=== PATIENT | female | born 1945 | race Caucasian/White ===

== ENCOUNTER → 2017-10-13 11:55 | Outpatient (REF) | payer MEDICARE, MEDICAID, SELFPAY ==
[2017-10-13 12:51] LABS: Bilirubin Negative (Negative); Blood Negative (Negative); Clarity Clear; Glucose 500 mg/dL (Negative); Ketones Negative (Negative); Leukocyte Esterase Negative (Negative); Nitrite Negative (Negative); Urobilinogen 0.2 EU/dL (Up TO 0.2); pH 5.5 (5-8)
== END ==
LOC: NCHCN 11:55
PROVIDERS: PCP Family Medicine; Visit Provider Family Medicine
DX: R35.0 Frequency of micturition (principal)
CPT/HCPCS: 81003

== ENCOUNTER 2017-11-04 11:03 | Emergency (ER) | payer MEDICARE, MEDICAID, SELFPAY ==
[2017-11-04] VITALS (27 sets, daily range): BP systolic 105–138; BP diastolic 60–85; PULSE 80–92; RESP 14–29; TEMP 36.6–36.7; O2SAT 89–96
--- NOTE | 2017-11-04 11:16 | ED.GENADUL_ITS ---
Disposition Clinical Impression: Left lower lobe pneumonia Disposition: HOME Condition: Good Instructions: Pneumonia (ED) Additional Instructions: We will ask our care management team to make you a follow-up appointment in clinic for recheck as well as to ask home health to check in with you. Return for worsening discomfort, development of fever, vomiting, or any other acute concerns per Continue your regular medications, except we will need to hold your Metformin for 48 hours. Prescriptions: Cefpodoxime [Vantin] 200 mg PO BID #20 tab Medical Decision Making - Lab Data Laboratory Results - last 24 hr 11/04/17 11/04/17 11:30 11:30 WBC 8.73 RBC 4.60 Hgb 13.9 Hct 40.8 MCV 88.7 MCH 30.2 MCHC 34.1 RDW 12.0 Plt Count 229 MPV 10.5 Immature Gran % 0.2 Neutrophils % 53.7 Lymphocytes % 33.7 Monocytes % 9.2 Eosinophils % 2.9 Basophils % 0.3 Absolute Neutrophils 4.69 Absolute Lymphocytes 2.94 Absolute Monocytes 0.80 H Absolute Eosinophils 0.25 Absolute Basophils 0.03 Sodium 135 L Potassium 3.5 Chloride 99 Carbon Dioxide 26.9 Anion Gap 9.1 BUN 8 Creatinine 0.89 Estimated GFR/1.73 m2 >= 60.00 Glucose 269 H Calcium 8.8 Magnesium 1.6 L Total Bilirubin 0.5 AST 15 ALT 19 Alkaline Phosphatase 122 H Troponin I < 0.02 Total Protein 7.9 Albumin 2.8 L Lipase 121 Results reviewed for labs ordered during visit: Yes - EKG Data -: EKG Interpreted by Ia EKG shows normal: sinus rhythm 11/04/17 11:49 Normal sinus rhythm, rate of 90, QRS is narrow, no ST segment elevation. - Radiology Data Radiology results: report reviewed, image reviewed - Medical Decision Making 72-year-old female presents for 2 complaints: First is that she essentially swish and spit some kerosene 5 days antecedent. Now here with 2 days of abdominal pain. She is afebrile, with normal blood pressure, with minimal tenderness in the right abdomen on exam. History is notable for neuroleptic induced tardive dyskinesia, hypertension, diabetes, obstructive sleep apnea, GERD, depression,/anxiety, headaches, questionable developmental delay. IV placed, patient given fluids and antiemetic along with small aliquot of analgesic. Referred for laboratory testing and imaging. CBC essentially unremarkable, chemistries with chronic mild hyponatremia, today 135, glucose 269, magnesium 1.6, troponin negative, lipase 121. Urine with trace blood and glucosuria. These reveal left lower lobe consolidation. May be due to slight inhalation of the kerosene 5 days ago, or other infectious process. Will treat for community- acquired pneumonia as this is an atypical area for true aspiration event. Patient given Rocephin in the emergency department, will place on a course of cefpodoxime. We will ask care management to assist in home health visit to ensure the patient success during outpatient treatment. History of Present Illness - General Chief complaint: GenMedical Stated complaint: RAZIA Time Seen by Provider: 11/04/17 11:13 Source: patient, EMS Mode of arrival: EMS Limitations: no limitations - History of Present Illness Initial comments: 72-year-old female presents from home after 911 call to EMS. She states that she drank kerosene on Wednesday, 5 days prior. She called EMS today due to the gradual onset over a day or so's time of right sided constant abdominal pain that is nonradiating. She says it hurts, it is worse with movement, associated with nausea but no emesis. She has not had a fever. States that she has had 2 days of diarrhea. She states that she has not had a cough, that she accidentally drink off-road kerosene and quickly spit it out. She has not had shortness of breath or chest pain. - Related Data Simvastatin [Zocor] 20 mg PO HS tab-cap 11/28/13 Blood Sugar Diagnostic [Freestyle Test Strips] 1 each MC DAILY strip 06/04/16 Dexlansoprazole [Dexilant] 30 mg PO BID tab-cap 05/06/17 Escitalopram Oxalate 30 mg PO DAILY tab-cap 05/06/17 Insulin Glargine,Hum.rec.anlog [Basaglar Kwikpen U-100] 32 unit SQ HS 05/06/17 Aspirin [Aspir 81] 81 mg PO DAILY 06/30/17 Propranolol HCl [Propranolol HCl ER] 60 mg PO DAILY 06/30/17 Albuterol [Ventolin Hfa] 2 puff IH PRN PRN 11/04/17 Cefpodoxime [Vantin] 200 mg PO BID #20 tab 11/04/17 ClonazePAM [KlonoPIN] 0.5 mg PO BID 11/04/17 Levothyroxine Sodium 112 mcg PO DAILY 11/04/17 Metformin HCl [Metformin HCl ER] 1,000 mg PO DAILY 11/04/17 Allergies Allergy/AdvReac Type Severity Reaction Status Date / Time codeine Allergy Severe Unverified 10/05/17 10:15 Penicillins Allergy Severe Unverified 10/05/17 10:15 bupropion Allergy Intermediate Unverified 10/05/17 10:15 tetrabenazine Allergy Intermediate Skin Rash Unverified 10/05/17 10:15 lisinopril Allergy Mild Unverified 10/05/17 10:15 oxybutynin chloride Allergy Unverified 10/05/17 10:15 [From Ditropan] Review of Systems Other: 8 systems reviewed, otherwise negative Past Medical History - Past Medical History Medical history: diabetes, GERD, hyperlipidemia, hypertension Tardive dyskinesia, migraines, hypothyroidism Surgical history: cholecystectomy, herniorraphy, hysterectomy - Social History Alcohol use: none Drug use: none General Exam - General Limitations: no limitations General appearance: alert, in no apparent distress - Head Head exam: Present: atraumatic, normocephalic - Eye Eye exam: Present: PERRL, EOMI - ENT ENT exam: Present: normal exam, normal orophraynx, other (Edentulous) - Neck Neck exam: Present: normal inspection - Respiratory Respiratory exam: Present: normal lung sounds bilaterally. Absent: respiratory distress, chest wall tenderness - Cardiovascular Cardiovascular Exam: Present: regular rate, normal rhythm - GI/Abdominal GI/Abdominal exam: Present: soft. Absent: distended, tenderness - Extremities Exam Extremities exam: Present: normal inspection - Neurological Exam Neurological exam: Present: alert, oriented X3 - Psychiatric Psychiatric exam: Present: normal affect, normal mood - Skin Skin exam: Present: warm, dry, intact
[2017-11-04 11:42] LABS: Abs Immature Grans 0.02 k/cumm (0.0-0.09); Absolute Basophil Count 0.03 k/cumm (0.0-0.2); Absolute Eosinophil Count 0.25 k/cumm (0.0-0.7); Absolute Lymphocyte Count 2.94 k/cumm (1.2-3.4); Absolute Neutrophil Count 4.69 k/cumm (1.2-6.7); Basophils % 0.3; Eosinophils % 2.9; HCT 40.8 % (36.0-46.0); HGB 13.9 g/dL (12.0-15.5); Immature Grans % 0.2; Lymphocytes % 33.7; Mean Corp. HGB Concentration 34.1 g/dL (32.0-36.0); Mean Corpuscular Hemoglobin 30.2 pg (27.0-33.0); Mean Corpuscular Volume 88.7 fL (80-95); Mean Platelet Volume 10.5 fL (8.0-11.0); Monocytes % 9.2; Neutrophils % 53.7; Platelet Count 229 x1000/uL (130-400); White Blood Cell Count 8.73 k/cumm (4.4-10.8)
[2017-11-04 11:56] LABS: ALT 19 U/L (12-78); AST 15 U/L (15-37); Albumin 2.8 g/dL (3.4-5.0); Alkaline Phosphatase 122 U/L (46-116); Anion Gap 9.1 mmol/L (3-11); BUN 8 mg/dL (7-18); Bilirubin, Total 0.5 mg/dL (0.2-1.0); CO2 26.9 mmol/L (21.0-32.0); CREATININE 0.89 mg/dL (0.55-1.02); Calcium 8.8 mg/dL (8.5-10.1); Chloride 99 mmol/L (98-107); Glucose 269 mg/dL (70-100); Lipase 121 U/L (73-393); Magnesium 1.6 mg/dL (1.8-2.4); Potassium 3.5 mmol/L (3.5-5.1); Sodium 135 mmol/L (136-145); Total Protein 7.9 g/dL (6.4-8.2)
[2017-11-04 11:58] LABS: Troponin I < 0.02 ng/mL (0.00-0.06)
[2017-11-04 12:08] LABS: Bilirubin Negative (Negative); Blood Trace-intact (Negative); Clarity Clear; Glucose 500 mg/dL (Negative); Ketones Negative (Negative); Leukocyte Esterase Negative (Negative); Nitrite Negative (Negative); Urobilinogen 0.2 EU/dL (Up TO 0.2)
[2017-11-04] MEDS: Normal Saline 1,000 ML 150 ML IV (12:08)
[2017-11-04] MEDS: Ondansetron 4 MG/2 ML VIAL IVP (12:08)
[2017-11-04] MEDS: Ketorolac 30 MG/ML VIAL 15 MG IVP (12:09)
--- NOTE | 2017-11-04 12:42 | DI.RPTCT_ITS ---
SYMPTOM/DIAGNOSIS: ABD PAIN, PARTICULARLY RLQ, ACCIDENTALLY SWALLOWED KEROSENE ABDOMEN AND PELVIC CT: CT examination of the abdomen and pelvis was performed with a bolus infusion of 100 cc's of Omnipaque 350. Images obtained through the lung bases show an area of apparent dense consolidation in the left lung base. The patient reportedly has a history of recent suspected kerosene aspiration and the findings are consistent with chemical and/or infectious pneumonitis of the left lower lobe. Note is made of hepatic steatosis. There has been a previous cholecystectomy. Spleen is unremarkable in appearance except for a couple of very tiny calcifications. Pancreas appears normal. No biliary dilatation is seen. Abdominal aorta is of normal diameter and no major vascular abnormality is seen. Adrenals and kidneys are normal in appearance. No significant abdominal wall hernia is seen. No abdominal or pelvic adenopathy. Appendix is normal. No evidence of diverticulitis or bowel obstruction. Uterus is atrophic or absent. CONCLUSION: 1. Findings consistent with left lower lobe pneumonitis. Appropriate follow up radiographs requested. 2. Hepatic steatosis. 3. Normal appearance of the appendix, no other specific abnormality is seen. AP AND LATERAL CHEST: The heart is not enlarged. As noted on today's abdomen and pelvic CT, there is left basilar consolidation. The patient reportedly has a history of suspected kerosene aspiration. Lungs otherwise appear clear. No pleural effusion is seen. No pneumothorax. CONCLUSION: Findings consistent with left lower lobe consolidation. Appropriate follow up studies requested.
[2017-11-04] MEDS: Omnipaque 350 MG/ML 100 ML BTL IJ (12:46)
[2017-11-04 12:49] LABS: Bacteria Negative HPF (Negative); C & S Indicated? No; Casts Negative LPF (Negative); Crystals Negative HPF (Negative); Epithelial Cells Negative HPF (Negative); Mucus Negative (Negative); RBC 0-2 (0-2); WBC Negative HPF (0-5)
--- NOTE | 2017-11-04 14:56 | PDOC.ERCMPRO ---
Care Management Progress Note 11/04-Philomena needs transportation home. Called [facility], spoke with Lucina. Lucina will send catering driver to pick pulling machine operator Philomena and return her home to [facility]. Air Quality Chemist will pick pulling machine operator Philomena at the emergency department entrance.
--- NOTE | 2017-11-04 14:57 | CMPROGNOTE_ITS ---
Care Management Progress Note 11/04-Philomena needs transportation home. Called [facility], spoke with Lucina. Lucina will send local bulk driver to pharmacy picking tech Philomena and return her home to [facility]. [employer] will pharmacy picking tech Philomena at the emergency department entrance.
--- NOTE | 2017-11-05 08:36 | PDOC.ERCMPRO ---
Care Management Progress Note 11/05-Dr. Balion requested PCP (Maria M) f/u within a week for pneumonia and to assess for home health services. Referral faxed to [facility].
== END 2017-11-04 15:05 | disposition home or self-care (01) ==
PROVIDERS: Emergency Provider Emergency Medicine; PCP Family Medicine
DX: J18.9 Pneumonia, unspecified organism (principal); T52.0X1A Toxic effect of petroleum products, accidental (unintentional), initial encounter; R10.11 Right upper quadrant pain; R11.0 Nausea; E11.9 Type 2 diabetes mellitus without complications; Z79.4 Long term (current) use of insulin; I10 Essential (primary) hypertension
CPT/HCPCS: 71046; 74177; 93005; 96361; 96365; 96375; 99285 ×2; J0696; J1885; J2405; 36415; 80053; 83690; 81003; 81015; 83735; 84484; 85025; 93010; J3490

== ENCOUNTER → 2017-12-13 14:39 | Outpatient (BNVA) | payer MEDICARE, MEDICAID, SELFPAY | PROVIDERS: PCP Family Medicine; Visit Provider Psychiatry & Neurology Neurology | DX: G24.01 Drug induced subacute dyskinesia (principal); G25.71 Drug induced akathisia; I10 Essential (primary) hypertension; E11.9 Type 2 diabetes mellitus without complications; Z79.4 Long term (current) use of insulin | CPT/HCPCS: 99213 ==

== ENCOUNTER 2018-01-31 16:31 | Outpatient (REF) | payer MEDICARE, MEDICAID, SELFPAY ==
[2018-01-31 19:59] LABS: COMMENT (LAB VIEW ONLY) 50.01 mg/dL; Microalb ug/mg Crea 5.4 ug/mg Cr
== END 2018-01-31 16:51 ==
LOC: NCHCN 16:31
PROVIDERS: PCP Family Medicine; Visit Provider Family Medicine
DX: E11.9 Type 2 diabetes mellitus without complications (principal)
CPT/HCPCS: 82043; 82570

== ENCOUNTER 2018-02-02 14:40 | Emergency (ER) | payer MEDICARE, MEDICAID, SELFPAY ==
[2018-02-02 14:57] VITALS: BP 121/63; PULSE 72; RESP 16; TEMP 36; O2SAT 95
--- NOTE | 2018-02-02 15:12 | DI.RAD_ITS ---
SYMPTOMS/DIAGNOSIS: WEAKNESS, ? PNEUMONIA PA AND LATERAL CHEST: When compared with the previous examination, there has been no significant interval change.
--- NOTE | 2018-02-02 15:15 | ED.GENADUL_ITS ---
Discharge Plan Disposition Patient Disposition: HOME Condition: Stable Discharge Details Chief Complaint: GenMedical Clinical Impression: Fatigue, Diarrhea Primary Care Provider: Leti Franz ED Provider: Hawa Bull Home Meds and New Rx's Prescriptions: Continue clonazepam 0.5 mg tablet 1.5 mg PO HS Qty: 90 RF: 2 simvastatin [Zocor] 10 MG tablet 20 mg PO HS RF: 0 blood sugar diagnostic [FreeStyle Test] 1 EACH strip 1 ea Miscellaneous DAILY RF: 0 escitalopram oxalate 20 MG tablet 30 mg PO DAILY RF: 0 dexlansoprazole [Dexilant] 30 MG capsule,biphase delayed releas 30 mg PO BID RF: 0 insulin glargine [Basaglar KwikPen U-100 Insulin] 100 unit/mL (3 mL) insulin pen 45 unit subcut DAILY RF: 0 albuterol sulfate [Ventolin HFA] 200 PUFF HFA aerosol inhaler 2 puff Inhalation PRN PRNRF: 0 levothyroxine 112 MCG tablet 112 mcg PO DAILY RF: 0 metformin 500 MG tablet extended release 24hr 1,000 mg PO DAILY RF: 0 propranolol 60 MG capsule,extended release 24 hr 60 mg PO DAILY RF: 0 aspirin [Aspir-81] 81 MG tablet,delayed release (DR/EC) 81 mg PO DAILY RF: 0 Discharge Instructions Instructions: Acute Diarrhea (ED), Fatigue (ED) Additional Instructions: Take your regular medications as directed. Follow-up with your primary care doctor in 1 week for re-evaluation. Return immediately to the emergency department any worsening or new concerning symptoms. Discharge Data Discharge Date/Time-TO BE ENTERED AT DEPARTURE: 02/02/18 19:39 Discharge Physician: Hawa Bull Medical Decision Making 72-year-old female with a history of developmental delay, diabetes, hypertension , high cholesterol who presents with fatigue and acute worsening of chronic tremors for the past week. Also admits to urinary frequency, urinary incontinence and diarrhea with recent sick contacts. Vitals within normal limits. Afebrile. Patient appears nontoxic and in no acute distress. Differential diagnosis includes infectious process such as pneumonia, UTI, ACS, electrolyte abnormality, anemia, dehydration. Will place an IV, bolus IV fluids , labs, urinalysis, EKG and chest x-ray. EKG notes a rate of 72, sinus, no acute ST elevation or depression. QTc 438. QRS 100. 1840 --labs reviewed and are unremarkable. CT head and chest x-ray negative for acute findings. Patient states she feels much better. Patient states she is hungry and is requesting food. Okay to discharge back to [place]. Instructed to follow-up with a primary care doctor in 1 week and return here if worse. HPI General Mode of arrival: ambulatory . Date/Time Provider Initiated Documentation: 02/02/18 15:00 . Limitations to Documentation: no limitations . Information obtained by: patient . HPI Narrative: Patient is a 72-year-old female with a history of diabetes, hypertension, high cholesterol, depression and anxiety who presents for fatigue for the past week. She also admits to intermittent shaking. She states she has a history of tremors but states this is been worse than usual. She denies known fever. She states she has been eating slightly less than usual due to decreased appetite. She does admit to occasional diarrhea for the past 2 days which is been watery and brown but no bleeding. She also is complaining of urinary frequency and incontinence which essentially is due to not being able to make it to the bathroom in time. She denies recent antibiotics, recent hospital admission. She has a history of sick contacts with cold symptoms. Patient resides at [place] and states she got a taxi here. Past medical history: Neuroleptic induced tardive dyskinesia, migraine, osteoarthritis, GERD, diabetes, hyperlipidemia, hypertension, schizophrenia, depression, anxiety Surgical history: Cholecystectomy, tubal ligation, hernia, cataract surgery, hysterectomy, left wrist surgery Social history: Denies tobacco Medications: See list Allergies: Codeine, penicillin, bupropion, lisinopril PCP: Dr. Franz Related Data Home Medications Medication Instructions Recorded Confirmed simvastatin [Zocor] 20 mg PO HS tab-cap 11/28/13 02/02/18 blood sugar diagnostic [FreeStyle strip 06/04/16 12/13/17 Test] dexlansoprazole [Dexilant] 30 mg PO BID tab-cap 05/06/17 02/02/18 escitalopram oxalate 30 mg PO DAILY tab-cap 05/06/17 02/02/18 aspirin [Aspir-81] 81 mg PO DAILY 06/30/17 02/02/18 propranolol 60 mg PO DAILY 06/30/17 02/02/18 albuterol sulfate [Ventolin HFA] 2 puff INHALATION PRN PRN 11/04/17 02/02/18 levothyroxine 112 mcg PO DAILY 11/04/17 02/02/18 metformin 1,000 mg PO DAILY 11/04/17 02/02/18 clonazepam 0.5 mg tablet 1.5 mg PO HS #90 tab 12/13/17 02/02/18 insulin glargine (U-100) 100 45 unit SUBCUT DAILY ml 12/13/17 02/02/18 unit/mL (3 mL) subcutaneous pen Previous Rx's Medication Instructions Recorded clonazepam 0.5 mg tablet 1.5 mg PO HS #90 tab 12/13/17 Allergies Allergy/AdvReac Type Severity Reaction Status Date / Time codeine Allergy Severe Unverified 02/02/18 15:00 Penicillins Allergy Severe Unverified 02/02/18 15:00 bupropion Allergy Intermediate Unverified 02/02/18 15:00 tetrabenazine Allergy Intermediate Skin Rash Unverified 02/02/18 15:00 lisinopril Allergy Mild Unverified 02/02/18 15:00 oxybutynin chloride Allergy Unverified 02/02/18 15:00 [From Ditropan] General Stated Complaint: GenMedical VIRGIE: 3 Review of Systems Review of Systems All systems reviewed & are unremarkable except as noted in HPI and below Constitutional Denies chills, Denies excessive sweating, Reports fatigue, Denies fever(s), Denies weakness and Denies weight loss Eyes Reports system reviewed and no additional complaints, except as docu and Denies blurry vision ENT Denies vertigo, Denies dizziness, Denies otalgia, Denies nasal congestion, Denies sore throat and Denies throat swelling Cardiovascular Denies chest pain, Denies syncope, Denies rapid heart rate and Denies dyspnea Respiratory Denies dyspnea Gastrointestinal Denies abdominal pain, Denies diarrhea and Denies vomiting Genitourinary Denies hematuria, Reports urinary frequency, Denies dysuria, Denies flank pain and Reports urinary incontinence Musculoskeletal Denies back pain and Denies joint swelling Integumentary/Breasts Denies lesions and Denies rash Neurologic Denies behavioral changes, Denies confusion, Denies vertigo, Denies dizziness, Denies syncope and Denies weakness Psychiatric Denies behavioral changes, Denies confusion and Denies depression Endocrine Denies excessive sweating and Reports fatigue Hematologic/Lymphatic Denies easy bruising and Denies lymphadenopathy Allergic/Immunologic Denies throat swelling Exam Const General: cooperative and healthy appearing Orientation: alert and awake [facility] Head: normal to inspection Ears: hearing grossly normal bilaterally and external ears normal General nose exam: external nose normal Face and sinus: normal facial exam Mouth: moist mucous membranes abnormal Eyes General: appearance normal, both eyes and all related structures Eyelids: eyelids normal EOM: EOM intact bilaterally Neck Neck: normal visual inspection Lymphatic: no lymphadenopathy noted Chest Chest: normal inspection of the chest Resp Effort & Inspection: normal respiratory effort and able to speak in complete sentences Auscultation: clear to auscultation bilaterally Cardio Rate: regular rate Rhythm: regular rhythm GI Inspection: normal to inspection Palpation: soft, not firm, no guarding, no hepatosplenomegaly, no masses and nontender Auscultation: normal bowel sounds Back/Spine/Pelvis Back: no CVA tenderness Skin General skin exam: no rashes or lesions noted Neuro General: alert and awake Cognition: normal cognition Speech: speech normal Gait: normal gait Motor: muscle tone normal throughout Sensory Exam: no sensory deficits noted Extrem General: normal to inspection, full ROM, normal capillary refill and no edema Psych Appearance: grossly normal Mental Status: mental status grossly normal Speech and Movement: speech and movement normal Affect: normal affect Thought Process: normal Course Vital Signs Temperature 96.8 F L 02/02/18 14:57 Pulse 72 02/02/18 14:57 Respiratory Rate 16 02/02/18 14:57 Blood Pressure 121/63 02/02/18 14:57 Pulse Oximetry 95 02/02/18 14:57 Temperature 96.8 F L 02/02/18 14:57 Temperature Source Skin 02/02/18 14:57 Pulse 72 02/02/18 14:57 Respiratory Rate 16 02/02/18 14:57 Respiratory Effort 02/02/18 14:57 Blood Pressure 121/63 02/02/18 14:57 Blood Pressure Position Sitting 02/02/18 14:57 Pulse Oximetry 95 02/02/18 14:57 Oxygen Delivery Method Room Air 02/02/18 14:57 Oxygen Flow Rate 0 02/02/18 14:57 Pain Level 0 02/02/18 14:57
[2018-02-02] MEDS: Normal Saline 250 ML IV (15:50)
[2018-02-02 15:55] LABS: Abs Immature Grans 0.02 k/cumm (0.0-0.09); Absolute Basophil Count 0.05 k/cumm (0.0-0.2); Absolute Eosinophil Count 0.38 k/cumm (0.0-0.7); Absolute Lymphocyte Count 3.82 k/cumm (1.2-3.4); Absolute Monocyte Count 0.62 k/cumm (0.11-0.7); Absolute Neutrophil Count 3.42 k/cumm (1.2-6.7); Basophils % 0.6; Eosinophils % 4.6; HCT 41.8 % (36.0-46.0); HGB 14.3 g/dL (12.0-15.5); Immature Grans % 0.2; Mean Corp. HGB Concentration 34.2 g/dL (32.0-36.0); Mean Corpuscular Hemoglobin 30.8 pg (27.0-33.0); Mean Corpuscular Volume 90.1 fL (80-95); Mean Platelet Volume 10.9 fL (8.0-11.0); Monocytes % 7.5; Neutrophils % 41.1; Platelet Count 230 x1000/uL (130-400); RBC 4.64 m/cumm (4.00-5.20); RBC Distribution Width 12.5 % (11.7-14.6); White Blood Cell Count 8.31 k/cumm (4.4-10.8)
[2018-02-02 16:03] LABS: ALT 27 U/L (12-78); AST 19 U/L (15-37); Albumin 3.3 g/dL (3.4-5.0); Alkaline Phosphatase 136 U/L (46-116); Anion Gap 6.8 mmol/L (3-11); BUN 14 mg/dL (7-18); Bilirubin, Total 0.4 mg/dL (0.2-1.0); CO2 28.2 mmol/L (21.0-32.0); CREATININE 0.91 mg/dL (0.55-1.02); Calcium 8.9 mg/dL (8.5-10.1); Chloride 100 mmol/L (98-107); Glucose 253 mg/dL (70-100); Magnesium 1.7 mg/dL (1.8-2.4); Potassium 4.1 mmol/L (3.5-5.1); Sodium 135 mmol/L (136-145); Total Protein 7.5 g/dL (6.4-8.2); Troponin I < 0.02 ng/mL (0.00-0.06)
[2018-02-02 16:20] VITALS: RESP 18
[2018-02-02 16:40] LABS: Bilirubin Negative (Negative); Blood Negative (Negative); Clarity Clear; Glucose 100 mg/dL (Negative); Ketones Negative (Negative); Leukocyte Esterase Trace (Negative); Nitrite Negative (Negative); Urobilinogen 0.2 EU/dL (Up TO 0.2); pH 5.5 (5-8)
[2018-02-02 16:47] LABS: Bacteria Rare HPF (Negative); C & S Indicated? No; Casts Negative LPF (Negative); Crystals Negative HPF (Negative); Epithelial Cells Rare HPF (Negative); Mucus Negative (Negative); Other Cells Rare Renal (Negative); RBC Negative (0-2); WBC 0-2 HPF (0-5)
--- NOTE | 2018-02-02 16:59 | DI.CT_ITS ---
SYMPTOMS/DIAGNOSIS: WEAK, SHAKY, TREMORS, ? ACUTE CVA CRANIAL CT: The noncontrast enhanced exam was carried out according to the usual protocol. There is no evidence of an intra or extra-axial hemorrhage, edema, mass or fluid collection. Note is made of findings consistent with small vessel disease. There are tiny radiolucencies in the left basal ganglia and left cerebellar hemisphere. There is no skull fracture. The sinuses are normal. There is no evidence of mastoid effusion. The soft tissues are normal. SUMMARY: No acute intracranial abnormality is demonstrated. Please see the above discussion.
--- NOTE | 2018-02-02 17:25 | DI.VRAD_ITS ---
EXAM: XR Chest, 2 Views EXAM DATE/TIME: 02/02/2018 4:25 PM CLINICAL HISTORY: 72 years old, female; Pain; Chest pain TECHNIQUE: XR of the chest, 2 views. COMPARISON: CR CHEST 2 VIEWS PA,LAT 11/04/2017 12:31 PM FINDINGS: Lungs: Comparison to the previous chest radiograph shows interval improvement in aeration at the left lung base with only a few small subsegmental pulmonary atelectases remaining present in the left lower lobe. Pleural space: Unremarkable. No pleural effusion. No pneumothorax. Heart/Mediastinum: The heart size is within normal limits. Bones/joints: Mild dextroscoliosis of the thoracolumbar spine is again seen with chronic degenerative vertebral body endplate osteophytic disease noted in the mid to lower thoracic spine. IMPRESSION: 1. Comparison to the previous chest radiograph shows interval improvement in aeration at the left lung base with only a few small subsegmental pulmonary atelectases remaining present in the left lower lobe. 2. The heart size is within normal limits. 3. chronic degenerative vertebral body endplate osteophytic disease noted in the mid to lower thoracic spine. Dictated and Authenticated by: Mello Hughes MD. Ordering:JESSA FREEMAN MD
--- NOTE | 2018-02-02 18:00 | DI.VRAD_ITS ---
EXAM: CT Head Without Intravenous Contrast EXAM DATE/TIME: 02/02/2018 5:00 PM CLINICAL HISTORY: 72 years old, female; Signs and symptoms; Altered mental status/memory loss TECHNIQUE: Axial computed tomography images of the head/brain without intravenous contrast. Coronal and sagittal reformatted images were created and reviewed. COMPARISON: No relevant prior studies available. FINDINGS: Brain: No acute intracerebral abnormality or injury. Mild patchy periventricular leukomalacia in both cerebral hemispheres, consistent with chronic underlying small vessel ischemic disease. A tiny chronic lacunar infarct is additionally present in the left cerebellar hemisphere on image 43 of series 7. Ventricles: Normal. No ventriculomegaly. Bones/joints: Normal. No acute fracture. Sinuses: Normal as visualized. No acute sinusitis. Mastoid air cells: Normal as visualized. No mastoid effusion. Soft tissues: Normal. IMPRESSION: 1. No acute intracerebral abnormality or injury. 2. Mild patchy periventricular leukomalacia in both cerebral hemispheres, consistent with chronic underlying small vessel ischemic disease. A tiny chronic lacunar infarct is additionally present in the left cerebellar hemisphere on image 43 of series 7. Dictated and Authenticated by: Mello Hughes MD. Ordering:JESSA RFEEMAN MD
== END 2018-02-02 19:39 | disposition home or self-care (01) ==
LOC: ER 19:54
PROVIDERS: Emergency Provider Physician Assistant; PCP Family Medicine
DX: R53.83 Other fatigue (principal); R19.7 Diarrhea, unspecified; I10 Essential (primary) hypertension; E11.9 Type 2 diabetes mellitus without complications; Z79.84 Long term (current) use of oral hypoglycemic drugs
CPT/HCPCS: 36415; 80053; 93005; 96360; 99285; 70450; 71046; 81003; 81015; 83735; 84484; 85025; 93010

== ENCOUNTER 2018-02-07 00:54 | Outpatient (CLI) | payer MEDICARE, MEDICAID, SELFPAY ==
--- NOTE | 2018-02-07 12:56 | DI.RAD_ITS ---
SYMPTOM/DIAGNOSIS: F/U PNEUMONIA, Z87.01, ? GRANULOMA ANULARIS VS A PARANEOPLASTIC PROCESS PA AND LATERAL CHEST: Comparison is made with 02/02/18. The heart size is within normal limits. There are old bilateral rib fractures. Mild basilar linear scarring is seen. The previously noted left lower lobe infiltrate has cleared. There is a stable lower thoracic compression fracture. IMPRESSION: Interval clearing of left lower lobe pneumonia.
== END 2018-02-07 01:14 ==
PROVIDERS: PCP Family Medicine; Visit Provider Family Medicine
DX: J18.1 Lobar pneumonia, unspecified organism (principal); J98.4 Other disorders of lung
CPT/HCPCS: 71046

== ENCOUNTER 2018-02-08 10:51 | Emergency (ER) | payer MEDICARE, MEDICAID, SELFPAY ==
[2018-02-08] VITALS (32 sets, daily range): BP systolic 109–144; BP diastolic 19–97; PULSE 63–77; RESP 12–23; TEMP 36.5–36.6; O2SAT 93–100
--- NOTE | 2018-02-08 11:11 | W.ED.GENAD ---
Discharge Plan Disposition Patient Disposition: HOME Condition: Good Discharge Details Chief Complaint: GenMedical Clinical Impression: Hypomagnesemia, Tremor Reason For Visit: RAZIA Primary Care Provider: Leti Franz ED Provider: Amanuel Irwin Home Meds and New Rx's Prescriptions: No Action clonazepam 0.5 mg tablet 1.5 mg PO HS Qty: 90 RF: 2 simvastatin [Zocor] 10 MG tablet 20 mg PO HS RF: 0 blood sugar diagnostic [FreeStyle Test] 1 EACH strip 1 ea Miscellaneous DAILY RF: 0 escitalopram oxalate 20 MG tablet 30 mg PO DAILY RF: 0 dexlansoprazole [Dexilant] 30 MG capsule,biphase delayed releas 30 mg PO BID RF: 0 insulin glargine [Basaglar KwikPen U-100 Insulin] 100 unit/mL (3 mL) insulin pen 60 unit subcut DAILY RF: 0 albuterol sulfate [Ventolin HFA] 200 PUFF HFA aerosol inhaler 2 puff Inhalation PRN PRNRF: 0 levothyroxine 112 MCG tablet 112 mcg PO DAILY RF: 0 metformin 500 MG tablet extended release 24hr 1,000 mg PO DAILY RF: 0 propranolol 60 MG capsule,extended release 24 hr 60 mg PO DAILY RF: 0 aspirin [Aspir-81] 81 MG tablet,delayed release (DR/EC) 81 mg PO DAILY RF: 0 Discharge Instructions Instructions: Hypomagnesemia (ED) Referrals: Leti Frazn MD [Primary Care Provider] - Return if symptoms worsen Discharge Data Discharge Date/Time-TO BE ENTERED AT DEPARTURE: 02/08/18 13:50 Medical Decision Making Pt shows no signs of stroke. Has underlying weakness chronically. She had benign CT scan last week and has no reported falls since that time. She improved last week on fluids and rest while in the ED. We will repeat labs and initiate fluids. She reports feeling better. She ambulates with stable gait. I apprised her of the labs. Advised to f/u with pcp. Return to ED for emergent concerns. Lab Data Lab results reviewed: Yes I reviewed the patient's lab results. Lab results narrative: Other than elevated glucose of 206 and slight low MG of 1.6 all values within acceptable limits. ECG Data Interpretation: No acute ST changes. Confirmed by Dr. Lazaro MEEK General Mode of arrival: EMS. Date/Time Provider Initiated Documentation: 02/08/18 11:00. Limitations to Documentation: no limitations. Information obtained by: patient and EMS. History of Present Illness 72 year old F presents to the emergency department with the chief complaint of weak legs, described as mild, HPI Narrative: 72-year-old female with a history of developmental delay, diabetes, hypertension, high cholesterol who presents with fatigue and acute worsening of chronic tremors in the lower extremities for the past two weeks. EMS brought patient in and they were called out for question of stroke. EMS reported no stroke symptoms on arrival. She was evaluated and treated one week ago in this ED for similiar complaints. Improved with IV fluids. Labs and CT were benign. Related Data Home Medications Medication Instructions Recorded Confirmed simvastatin [Zocor] 20 mg PO HS tab-cap 11/28/13 02/08/18 blood sugar diagnostic [FreeStyle strip 06/04/16 12/13/17 Test] dexlansoprazole [Dexilant] 30 mg PO BID tab-cap 05/06/17 02/08/18 escitalopram oxalate 30 mg PO DAILY tab-cap 05/06/17 02/08/18 aspirin [Aspir-81] 81 mg PO DAILY 06/30/17 02/08/18 propranolol 60 mg PO DAILY 06/30/17 02/08/18 albuterol sulfate [Ventolin HFA] 2 puff INHALATION PRN PRN 11/04/17 02/08/18 levothyroxine 112 mcg PO DAILY 11/04/17 02/08/18 metformin 1,000 mg PO DAILY 11/04/17 02/08/18 clonazepam 0.5 mg tablet 1.5 mg PO HS #90 tab 12/13/17 02/08/18 insulin glargine (U-100) 100 60 unit SUBCUT DAILY ml 12/13/17 02/08/18 unit/mL (3 mL) subcutaneous pen Previous Rx's Medication Instructions Recorded clonazepam 0.5 mg tablet 1.5 mg PO HS #90 tab 12/13/17 Allergies Allergy/AdvReac Type Severity Reaction Status Date / Time codeine Allergy Severe Unverified 02/08/18 10:58 Penicillins Allergy Severe Unverified 02/08/18 10:58 bupropion Allergy Intermediate Unverified 02/08/18 10:58 tetrabenazine Allergy Intermediate Skin Rash Unverified 02/08/18 10:58 lisinopril Allergy Mild Unverified 02/08/18 10:58 oxybutynin chloride Allergy Unverified 02/08/18 10:58 [From Ditropan] General Stated Complaint: GenMedical VIRGIE: 2 Review of Systems Constitutional Reports weakness (in legs) and Reports other (worse since last week. ) Eyes Reports system reviewed and no additional complaints, except as docu ENT Reports system reviewed and no additional [facility] Cardiovascular Reports system reviewed and no additional complaints, except as docu Respiratory Reports system reviewed and no additional complaints, except as docu Gastrointestinal Reports abdominal pain (chronic), Denies nausea and Denies vomiting Genitourinary Reports system reviewed and no additional complaints, [facility] Musculoskeletal Reports system reviewed and no additional complaints, except as docu Neurologic Reports weakness (in legs) Exam Const General: cooperative, comfortable and no acute distress Nutritional Appearance: overweight Orientation: alert, awake and oriented x3 HENMT Head: atraumatic Ears: hearing grossly normal bilaterally and external ears normal General nose exam: external nose normal and nares normal Eyes General: appearance normal, both eyes and all related structures Neck Neck: normal visual inspection, full ROM and no lymphadenopathy Chest Chest: normal palpation of entire chest wall Resp Effort & Inspection: normal respiratory effort Auscultation: clear to auscultation bilaterally Cardio Rate: regular rate Rhythm: regular rhythm Heart Sounds: S1 normal and S2 normal GI Palpation: soft and nontender Back/Spine/Pelvis Back: no CVA tenderness Cervical Spine: normal cervical lordosis and cervical ROM normal Thoracic/Lumbar Spine: thoracic and lumbar spine normal to inspection Skin General skin exam: no rashes or lesions noted Neuro General: alert, awake and oriented x3 Cognition: normal cognition Speech: speech normal Motor: no pronator drift and tremor Coordination: [id number] test normal and [id number] test normal Extrem General: normal to inspection, full ROM and normal capillary refill Psych Appearance: grossly normal Mental Status: mental status grossly normal Speech and Movement: speech and movement normal Mood: congruent mood Affect: normal affect Attitude: cooperative Thought Process: normal Thought Content: normal Course Vital Signs Temperature 36.5 C 02/08/18 10:54 Pulse 66 02/08/18 10:54 Respiratory Rate 15 02/08/18 10:54 Blood Pressure 144/97 H 02/08/18 10:54 Pulse Oximetry 100 02/08/18 10:54 Temperature 36.5 C 02/08/18 10:54 Temperature Source Skin 02/08/18 10:54 Pulse 66 02/08/18 10:54 Respiratory Rate 15 02/08/18 10:54 Blood Pressure 144/97 H 02/08/18 10:54 Blood Pressure Position Supine 02/08/18 10:54 Pulse Oximetry 100 02/08/18 10:54 Oxygen Delivery Method Room Air 02/08/18 10:54 Oxygen Flow Rate 0 02/08/18 10:54 Pain Level 8 02/08/18 10:54
[2018-02-08] MEDS: Normal Saline 1,000 ML 1000 ML IV (11:16)
--- NOTE | 2018-02-08 11:18 | ED.GENADUL_ITS ---
Discharge Plan Disposition Patient Disposition: HOME Condition: Good Discharge Details Chief Complaint: GenMedical Clinical Impression: Hypomagnesemia, Tremor Reason For Visit: RAZIA Primary Care Provider: Leti Franz ED Provider: Amanuel Irwin Home Meds and New Rx's Prescriptions: No Action clonazepam 0.5 mg tablet 1.5 mg PO HS Qty: 90 RF: 2 simvastatin [Zocor] 10 MG tablet 20 mg PO HS RF: 0 blood sugar diagnostic [FreeStyle Test] 1 EACH strip 1 ea Miscellaneous DAILY RF: 0 escitalopram oxalate 20 MG tablet 30 mg PO DAILY RF: 0 dexlansoprazole [Dexilant] 30 MG capsule,biphase delayed releas 30 mg PO BID RF: 0 insulin glargine [Basaglar KwikPen U-100 Insulin] 100 unit/mL (3 mL) insulin pen 60 unit subcut DAILY RF: 0 albuterol sulfate [Ventolin HFA] 200 PUFF HFA aerosol inhaler 2 puff Inhalation PRN PRNRF: 0 levothyroxine 112 MCG tablet 112 mcg PO DAILY RF: 0 metformin 500 MG tablet extended release 24hr 1,000 mg PO DAILY RF: 0 propranolol 60 MG capsule,extended release 24 hr 60 mg PO DAILY RF: 0 aspirin [Aspir-81] 81 MG tablet,delayed release (DR/EC) 81 mg PO DAILY RF: 0 Discharge Instructions Instructions: Hypomagnesemia (ED) Referrals: Leti Franz MD [Primary Care Provider] - Return if symptoms worsen Discharge Data Discharge Date/Time-TO BE ENTERED AT DEPARTURE: 02/08/18 13:50 Medical Decision Making Pt shows no signs of stroke. Has underlying weakness chronically. She had benign CT scan last week and has no reported falls since that time. She improved last week on fluids and rest while in the ED. We will repeat labs and initiate fluids. She reports feeling better. She ambulates with stable gait. I apprised her of the labs. Advised to f/u with pcp. Return to ED for emergent concerns. Lab Data Lab results reviewed: Yes I reviewed the patient's lab results. Lab results narrative: Other than elevated glucose of 206 and slight low MG of 1.6 all values within acceptable limits. ECG Data Interpretation: No acute ST changes. Confirmed by Dr. Lazaro MEEK General Mode of arrival: EMS . Date/Time Provider Initiated Documentation: 02/08/18 11:00 . Limitations to Documentation: no limitations . Information obtained by: patient and EMS . History of Present Illness 72 year old F presents to the emergency department with the chief complaint of weak legs, described as mild, HPI Narrative: 72-year-old female with a history of developmental delay, diabetes, hypertension, high cholesterol who presents with fatigue and acute worsening of chronic tremors in the lower extremities for the past two weeks. EMS brought patient in and they were called out for question of stroke. EMS reported no stroke symptoms on arrival. She was evaluated and treated one week ago in this ED for similiar complaints. Improved with IV fluids. Labs and CT were benign. Related Data Home Medications Medication Instructions Recorded Confirmed simvastatin [Zocor] 20 mg PO HS tab-cap 11/28/13 02/08/18 blood sugar diagnostic [FreeStyle strip 06/04/16 12/13/17 Test] dexlansoprazole [Dexilant] 30 mg PO BID tab-cap 05/06/17 02/08/18 escitalopram oxalate 30 mg PO DAILY tab-cap 05/06/17 02/08/18 aspirin [Aspir-81] 81 mg PO DAILY 06/30/17 02/08/18 propranolol 60 mg PO DAILY 06/30/17 02/08/18 albuterol sulfate [Ventolin HFA] 2 puff INHALATION PRN PRN 11/04/17 02/08/18 levothyroxine 112 mcg PO DAILY 11/04/17 02/08/18 metformin 1,000 mg PO DAILY 11/04/17 02/08/18 clonazepam 0.5 mg tablet 1.5 mg PO HS #90 tab 12/13/17 02/08/18 insulin glargine (U-100) 100 60 unit SUBCUT DAILY ml 12/13/17 02/08/18 unit/mL (3 mL) subcutaneous pen Previous Rx's Medication Instructions Recorded clonazepam 0.5 mg tablet 1.5 mg PO HS #90 tab 12/13/17 Allergies Allergy/AdvReac Type Severity Reaction Status Date / Time codeine Allergy Severe Unverified 02/08/18 10:58 Penicillins Allergy Severe Unverified 02/08/18 10:58 bupropion Allergy Intermediate Unverified 02/08/18 10:58 tetrabenazine Allergy Intermediate Skin Rash Unverified 02/08/18 10:58 lisinopril Allergy Mild Unverified 02/08/18 10:58 oxybutynin chloride Allergy Unverified 02/08/18 10:58 [From Ditropan] General Stated Complaint: GenMedical VIRGIE: 2 Review of Systems Constitutional Reports weakness (in legs) and Reports other (worse since last week. ) Eyes Reports system reviewed and no additional complaints, except as docu ENT Reports system reviewed and no additional complaints, except as [facility] Cardiovascular Reports system reviewed and no additional complaints, except as docu Respiratory Reports system reviewed and no additional complaints, except as docu Gastrointestinal Reports abdominal pain (chronic), Denies nausea and Denies vomiting Genitourinary Reports system reviewed and no additional complaints, except as [facility] Musculoskeletal Reports system reviewed and no additional complaints, except as docu Neurologic Reports weakness (in legs) Exam Const General: cooperative, comfortable and no acute distress Nutritional Appearance: overweight Orientation: alert, awake and oriented x3 HENMT Head: atraumatic Ears: hearing grossly normal bilaterally and external ears normal General nose exam: external nose normal and nares normal Eyes General: appearance normal, both eyes and all related structures Neck Neck: normal visual inspection, full ROM and no lymphadenopathy Chest Chest: normal palpation of entire chest wall Resp Effort & Inspection: normal respiratory effort Auscultation: clear to auscultation bilaterally Cardio Rate: regular rate Rhythm: regular rhythm Heart Sounds: S1 normal and S2 normal GI Palpation: soft and nontender Back/Spine/Pelvis Back: no CVA tenderness Cervical Spine: normal cervical lordosis and cervical ROM normal Thoracic/Lumbar Spine: thoracic and lumbar spine normal to inspection Skin General skin exam: no rashes or lesions noted Neuro General: alert, awake and oriented x3 Cognition: normal cognition Speech: speech normal Motor: no pronator drift and tremor Coordination: [id number]-[id number] test normal and [id number] test normal Extrem General: normal to inspection, full ROM and normal capillary refill Psych Appearance: grossly normal Mental Status: mental status grossly normal Speech and Movement: speech and movement normal Mood: congruent mood Affect: normal affect Attitude: cooperative Thought Process: normal Thought Content: normal Course Vital Signs Temperature 36.5 C 02/08/18 10:54 Pulse 66 02/08/18 10:54 Respiratory Rate 15 02/08/18 10:54 Blood Pressure 144/97 H 02/08/18 10:54 Pulse Oximetry 100 02/08/18 10:54 Temperature 36.5 C 02/08/18 10:54 Temperature Source Skin 02/08/18 10:54 Pulse 66 02/08/18 10:54 Respiratory Rate 15 02/08/18 10:54 Blood Pressure 144/97 H 02/08/18 10:54 Blood Pressure Position Supine 02/08/18 10:54 Pulse Oximetry 100 02/08/18 10:54 Oxygen Delivery Method Room Air 02/08/18 10:54 Oxygen Flow Rate 0 02/08/18 10:54 Pain Level 8 02/08/18 10:54
[2018-02-08 11:21] LABS: Abs Immature Grans 0.01 k/cumm (0.0-0.09); Absolute Basophil Count 0.03 k/cumm (0.0-0.2); Absolute Lymphocyte Count 3.13 k/cumm (1.2-3.4); Absolute Neutrophil Count 2.97 k/cumm (1.2-6.7); Basophils % 0.4; Eosinophils % 4.3; HCT 41.7 % (36.0-46.0); HGB 14.3 g/dL (12.0-15.5); Immature Grans % 0.1; Lymphocytes % 45.1; Mean Corp. HGB Concentration 34.3 g/dL (32.0-36.0); Mean Corpuscular Hemoglobin 31.2 pg (27.0-33.0); Mean Corpuscular Volume 90.8 fL (80-95); Mean Platelet Volume 10.6 fL (8.0-11.0); Monocytes % 7.2; Neutrophils % 42.9; Platelet Count 216 x1000/uL (130-400); RBC 4.59 m/cumm (4.00-5.20); RBC Distribution Width 12.5 % (11.7-14.6); White Blood Cell Count 6.94 k/cumm (4.4-10.8)
[2018-02-08 11:30] LABS: Bilirubin Negative (Negative); Blood Trace-lysed (Negative); Clarity Clear; Glucose Negative (Negative); Ketones Negative (Negative); Leukocyte Esterase Negative (Negative); Nitrite Negative (Negative); Urobilinogen 0.2 EU/dL (Up TO 0.2)
[2018-02-08 11:32] LABS: Lipase 115 U/L (73-393); Magnesium 1.6 mg/dL (1.8-2.4)
[2018-02-08 11:35] LABS: ALT 26 U/L (12-78); AST 25 U/L (15-37); Albumin 3.2 g/dL (3.4-5.0); Alkaline Phosphatase 115 U/L (46-116); Anion Gap 9.3 mmol/L (3-11); BUN 10 mg/dL (7-18); Bilirubin, Total 0.4 mg/dL (0.2-1.0); CO2 29.7 mmol/L (21.0-32.0); CREATININE 0.84 mg/dL (0.55-1.02); Calcium 9.1 mg/dL (8.5-10.1); Chloride 102 mmol/L (98-107); Glucose 206 mg/dL (70-100); Sodium 141 mmol/L (136-145); Total Protein 7.4 g/dL (6.4-8.2)
[2018-02-08 11:45] LABS: Bacteria Rare HPF (Negative); C & S Indicated? No; Casts Negative LPF (Negative); Crystals Negative HPF (Negative); Epithelial Cells Rare HPF (Negative); Mucus Trace (Negative); WBC 0-2 HPF (0-5)
== END 2018-02-08 13:50 | disposition home or self-care (01) ==
PROVIDERS: Emergency Provider Nurse Practitioner Family; PCP Family Medicine
DX: E83.42 Hypomagnesemia (principal); R25.1 Tremor, unspecified; I10 Essential (primary) hypertension; E11.9 Type 2 diabetes mellitus without complications; Z79.84 Long term (current) use of oral hypoglycemic drugs
CPT/HCPCS: 36415; 80053; 83690; 93005; 96360; 99284; 81003; 81015; 83735; 85025; 93010

== ENCOUNTER 2018-02-10 09:44 | Emergency (ER) | payer MEDICARE, MEDICAID, SELFPAY ==
[2018-02-10 09:48] VITALS: PULSE 71; RESP 18; TEMP 36.4; O2SAT 95
--- NOTE | 2018-02-10 09:59 | W.ED.GENAD ---
Discharge Plan Disposition Patient Disposition: HOME Condition: Stable Discharge Details Chief Complaint: Abd Prob Clinical Impression: Weakness, Hypomagnesemia Primary Care Provider: Leti Franz ED Provider: Kathy Ram Home Meds and New Rx's Prescriptions: New magnesium oxide 400 mg capsule 400 mg PO DAILY Qty: 20 RF: 0 Continue clonazepam 0.5 mg tablet 1.5 mg PO HS Qty: 90 RF: 2 simvastatin [Zocor] 10 MG tablet 20 mg PO HS RF: 0 blood sugar diagnostic [FreeStyle Test] 1 EACH strip 1 ea Miscellaneous DAILY RF: 0 escitalopram oxalate 20 MG tablet 30 mg PO DAILY RF: 0 dexlansoprazole [Dexilant] 30 MG capsule,biphase delayed releas 30 mg PO BID RF: 0 insulin glargine [Basaglar KwikPen U-100 Insulin] 100 unit/mL (3 mL) insulin pen 60 unit subcut DAILY RF: 0 albuterol sulfate [Ventolin HFA] 200 PUFF HFA aerosol inhaler 2 puff Inhalation PRN PRNRF: 0 levothyroxine 112 MCG tablet 112 mcg PO DAILY RF: 0 metformin 500 MG tablet extended release 24hr 1,000 mg PO DAILY RF: 0 propranolol 60 MG capsule,extended release 24 hr 60 mg PO DAILY RF: 0 aspirin [Aspir-81] 81 MG tablet,delayed release (DR/EC) 81 mg PO DAILY RF: 0 Discharge Instructions Instructions: Weakness (ED), Hypomagnesemia (ED) Additional Instructions: Encourage hydration. Please begin daily magnesium supplement. You have an appointment with primary care next February [address] Franz. Referral for physical therapy is attached, we may discuss home care physical therapy further with your special education case manager as needed Please call special education case manager, Suzi Bautista tomorrow, to discuss living situation and further home needs. [phone] ex. [phone] If Philomena develops new/worsening symptoms please seek care urgently once again. Stand Alone Forms: Physical Therapy Referral Referrals: Leti Franz MD [Primary Care Provider] - ([phone]) Discharge Data Discharge Date/Time-TO BE ENTERED AT DEPARTURE: 02/10/18 14:30 Medical Decision Making Patient is a 72-year-old female with history of developmental delay, diabetes, hypertension, high cholesterol, tardive dyskinesia, migraine, GERD, diabetes, schizophrenia, anxiety, brought in via EMS from [facility], with multiple chief complaints. She was seen here twice in the past week. At that time, she was endorsing bilateral lower extremity weakness, increased tremors and urinary changes. On her arrival today, she initially endorsed to nursing staff abdominal discomfort. She continues to endorse some abdominal discomfort primarily along the left side. Reports that it is diffuse along the left side. Denies any nausea or vomiting. Continues to have some mild diarrhea but denies any blood in her stool. States that her urination has been diminished. She is reporting that she is having some bilateral lower extremity weakness that is unchanged over the past week. Review of the previous visits show that the patient has been much improved after receiving fluids. She did have low magnesium when seen here 2 days ago and felt much improved after this was replenished. Denies any fevers or chills. No chest pain, shortness of breath. Denies any headache or back pain. On exam, the patient appears in no acute distress. No abdominal pain is elicited with palpation. No CVA tenderness. Patient has strength equal bilaterally in the lower extremities. No saddle paresthesias. No acute neurologic changes are noted. Will obtain repeat laboratory evaluation. She had a CT scan of the last week and no recent fall. Do not feel that repeat imaging at this time is needed as this seems to be continuation of the symptoms and she is denying any acute change in these. Sister is present and reports that patient is at her baseline. She does not note a change from her baseline. Sister expresses concern for her recent ED visits. Sister, patient and I tried to explore this further. Patient is now reporting that she is unhappy with her currently living situation and she would like to move to a higher level of care. Sister does not note change in movement habits, speech or mentation. Laboratory evaluation significant for low magnesium at 1.6. this is consistent for where the patient has been at the last 2 visits. Will begin oral replenishment and advised daily magnesium supplementation which they are in agreement with. Patient has had multiple UTI in the past, no evidence of this todya. The patient's primary care office. Spoke with nursing staff his primary care physician is not available. We discussed the patient's multiple visits. I advised that we will be starting her on daily magnesium supplementation. We discussed discontinuation of feeling weak. I have requested for physical therapy to evaluate the patient and will discuss possible physical therapy interventions as they see fit. However, at this point I do not see any acute emergent illness that would prompt any further workup today. I was able to make an appointment with the primary care physician next week Also contacted patient's special education case manager. She is not in the office today. However, I was able to speak with 1 of her coworkers. I expressed my concerns and the patient's wishes to move to a higher level of care. We also discussed continuation of therapy. She has requested that the patient's special education case manager reach out to her tomorrow to make a plan for further care. Physical therapy evaluated the patient. They reported that she was able to ambulate well and unassisted with her walker. Patient does have a walker at baseline at home. Advised that if the patient continues to have the sensation of weakness she continue to use the walker. However, they do not see any evidence to suggest acute weakness or change in gait. They did advise outpatient physical therapy to help with generalized weakness. I did discuss with patient who is in agreement. Referral for outpatient physical therapy will be given. Patient was able to use walker well. Discussed laboratory findings, physical therapy evaluation, discussion with special education case manager as well as primary care office with the patient and her sister. We discussed magnesium supplementation physical therapy referral which the patient seems quite excited about. She is requesting a different type of walker, one that allows for her to be able to sit down when she likes, she will discuss this further with her special education case manager tomorrow. Patient's sister did offer for patient to come home with her today and stay with her, however the patient declines she would like to go home to her. We discussed new/worsening symptoms and when to seek care urgently once again. We discussed the plan moving forward in depth. All of their questions and concerns were addressed and they are in agreement with this plan per HPI General Mode of arrival: EMS. Date/Time Provider Initiated Documentation: 02/10/18 09:46. Limitations to Documentation: no limitations. Information obtained by: patient and family. History of Present Illness 72 year old F presents to the emergency department with the chief complaint of abdominal pain, lower extremity weakness, described as moderate, Quality is described as aching, and is localized to the abdomen (left side of abdomen). Patient reports no radiation; denies radiation to back. Patient started experiencing this day(s) and it has been constant. No relieving factors improve symptom(s), No exacerbating factors reported . Patient notes weakness; denies chest pain, cough, fever/chills, headaches, loss of appetite, nausea/vomiting, rash, shortness of breath and syncope. Patient did receive the following treatments prior to arrival, none Related Data Home Medications Medication Instructions Recorded Confirmed simvastatin [Zocor] 20 mg PO HS tab-cap 11/28/13 02/08/18 blood sugar diagnostic [FreeStyle strip 06/04/16 12/13/17 Test] dexlansoprazole [Dexilant] 30 mg PO BID tab-cap 05/06/17 02/08/18 escitalopram oxalate 30 mg PO DAILY tab-cap 05/06/17 02/08/18 aspirin [Aspir-81] 81 mg PO DAILY 06/30/17 02/08/18 propranolol 60 mg PO DAILY 06/30/17 02/08/18 albuterol sulfate [Ventolin HFA] 2 puff INHALATION PRN PRN 11/04/17 02/08/18 levothyroxine 112 mcg PO DAILY 11/04/17 02/08/18 metformin 1,000 mg PO DAILY 11/04/17 02/08/18 clonazepam 0.5 mg tablet 1.5 mg PO HS #90 tab 12/13/17 02/08/18 insulin glargine (U-100) 100 60 unit SUBCUT DAILY ml 12/13/17 02/08/18 unit/mL (3 mL) subcutaneous pen magnesium oxide 400 mg PO DAILY #20 cap 02/10/18 Previous Rx's Medication Instructions Recorded clonazepam 0.5 mg tablet 1.5 mg PO HS #90 tab 12/13/17 magnesium oxide 400 mg PO DAILY #20 cap 02/10/18 Allergies Allergy/AdvReac Type Severity Reaction Status Date / Time codeine Allergy Severe Unverified 02/10/18 09:52 Penicillins Allergy Severe Unverified 02/10/18 09:52 bupropion Allergy Intermediate Unverified 02/10/18 09:52 tetrabenazine Allergy Intermediate Skin Rash Unverified 02/10/18 09:52 lisinopril Allergy Mild Unverified 02/10/18 09:52 oxybutynin chloride Allergy Unverified 02/10/18 09:52 [From El] General Stated Complaint: Abd Prob VIRGIE: 3 Review of Systems Constitutional Reports as per HPI, Denies chills, Denies fatigue, Denies fever(s), Denies headache(s) and Reports weakness ENT Denies dizziness, Denies headache(s) and Denies neck pain Cardiovascular Reports as per HPI, Denies chest pain, Denies syncope and Denies dyspnea Respiratory Denies dyspnea Gastrointestinal Reports as per HPI, Reports abdominal pain, Denies melena, Denies bloating, Reports change in stool character (states that her stool has been softer than typical), Denies nausea and Denies vomiting Genitourinary Reports other (reports diminished urination. Had previously endorses frequency, urgency, this has since stopped) Musculoskeletal Reports as per HPI, Reports abnormal gait (reports difficulty ambulating secondary to weakness in gait, states this has been going on for the past few weeks), Denies back pain, Denies myalgias, Denies arthralgias, Denies joint swelling, Denies limited range of motion, Denies muscle cramps, Reports muscle weakness (reports weakness in bilateral lower legs), Denies neck pain, Denies numbness, Denies radiating pain into limb and Denies tingling Integumentary/Breasts Reports as per HPI and Denies rash Neurologic Reports as per HPI, Denies abnormal movements, Denies abnormal speech, Reports abnormal gait (reports difficulty ambulating secondary to weakness in gait, states this has been going on for the past few weeks), Denies confusion, Denies dizziness, Denies syncope, Denies headache(s), Denies lack of coordination, Denies numbness, Denies tingling and Reports weakness Psychiatric Denies confusion Endocrine Denies fatigue [facility] Developmental delay, borderline (Chronic) Migraine headache without aura (Chronic) Osteoporosis (Chronic) Depression with anxiety (Chronic) Chronic low back pain (Chronic) Osteoarthritis (Chronic) Hypothyroidism (Chronic) Arias's esophagus (Chronic) GERD (gastroesophageal reflux disease) (Chronic) Obstructive sleep apnea on CPAP (Chronic) Type 2 diabetes mellitus (Chronic) Hyperlipidemia (Chronic) Hypertension (Chronic) Urgency incontinence (Chronic 05/01/15) Tardive dyskinesia (Chronic 01/26/17) 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) Sensorineural hearing loss, bilateral (Chronic 01/07/15) Dysphagia, unspecified (Chronic 06/22/16) Family History Father Tremor Brother Tremor Sister Tremor Mother Heart disease Hypertension Sister Breast cancer Sister Stomach cancer H/O bilateral cataract extraction (Acute) H/O umbilical hernia repair (Acute) History of hysterectomy with bilateral oophorectomy (Acute) S/P cholecystectomy (Acute) H/O tubal ligation (Chronic) Social History housing: assisted living facility number of children: 8 current occupational status: disabled Smoking/Tobacco Use Status: Never alcohol intake: never substance use type: does not use additional social history: She attends [employer] 3x per week. Exam Const General: cooperative, healthy appearing, comfortable, no acute distress and well developed Nutritional Appearance: well nourished and overweight Orientation: alert, awake and oriented x3 Limitations: mental status not altered HENMT Head: normal to inspection Mouth: moist mucous membranes Resp Effort & Inspection: normal respiratory effort, able to speak in complete sentences and no respiratory distress Auscultation: clear to auscultation bilaterally, no rales, no rhonchi and no wheezes Cardio Rate: regular rate Rhythm: regular rhythm Heart Sounds: S1 normal and S2 normal GI Inspection: normal to inspection, no abdominal wall ecchymosis, no edema, non-distended and no visible herniation Palpation: soft, no hepatosplenomegaly, not firm, no guarding, no hernias, not rigid and nontender Auscultation: normal bowel sounds Back/Spine/Pelvis Back: no CVA tenderness Thoracic/Lumbar Spine: thoracic and lumbar spine normal to inspection Skin General skin exam: ecchymosis (ecchymosis to the left forearm, this does not appear new. ) Trauma: no lacerations or abrasions Neuro General: alert, awake, oriented x3, gait normal, tone normal, moves all extremities, no meningeal signs, no focal motor deficits, CN's II-XI intact bilaterally and deep tendon reflexes not 2+ bilaterally (Patient is gaurding in lower extremities, having difficulty having her relax enough for test. ) Cognition: normal cognition Speech: speech normal Gait: normal gait (ambulating with walker) Motor: muscle tone normal throughout, strength 5/5 throughout, no pronator drift, no fasciculations and tremor (bilateral upper extremities, patient and sister report this is typical and unchanged. ) Sensory Exam: no sensory deficits noted and normal double simultaneous stimulation Coordination: [id number] test normal and [id number] test normal Extrem General: normal to inspection (tremor as above to BUE), full ROM, normal capillary refill, no clubbing, cyanosis or edema, no pedal edema and no calf tenderness Psych Appearance: grossly normal and well kempt Mental Status: mental status grossly normal Speech and Movement: speech and movement normal Course Vital Signs Temperature 36.4 C L 02/10/18 09:48 Pulse 71 02/10/18 09:48 Respiratory Rate 18 02/10/18 09:48 Pulse Oximetry 95 02/10/18 09:48 Temperature 36.4 C L 02/10/18 09:48 Temperature Source Skin 02/10/18 09:48 Pulse 71 02/10/18 09:48 Respiratory Rate 18 02/10/18 09:48 Pulse Oximetry 95 02/10/18 09:48 Oxygen Delivery Method Room Air 02/10/18 09:48 Oxygen Flow Rate 0 02/10/18 09:48
[2018-02-10] MEDS: Normal Saline 1,000 ML 500 ML IV (10:15)
--- NOTE | 2018-02-10 10:18 | ED.GENADUL_ITS ---
Discharge Plan Disposition Patient Disposition: HOME Condition: Stable Discharge Details Chief Complaint: Abd Prob Clinical Impression: Weakness, Hypomagnesemia Primary Care Provider: Leti Franz ED Provider: Kathy Ram Home Meds and New Rx's Prescriptions: New magnesium oxide 400 mg capsule 400 mg PO DAILY Qty: 20 RF: 0 Continue clonazepam 0.5 mg tablet 1.5 mg PO HS Qty: 90 RF: 2 simvastatin [Zocor] 10 MG tablet 20 mg PO HS RF: 0 blood sugar diagnostic [FreeStyle Test] 1 EACH strip 1 ea Miscellaneous DAILY RF: 0 escitalopram oxalate 20 MG tablet 30 mg PO DAILY RF: 0 dexlansoprazole [Dexilant] 30 MG capsule,biphase delayed releas 30 mg PO BID RF: 0 insulin glargine [Basaglar KwikPen U-100 Insulin] 100 unit/mL (3 mL) insulin pen 60 unit subcut DAILY RF: 0 albuterol sulfate [Ventolin HFA] 200 PUFF HFA aerosol inhaler 2 puff Inhalation PRN PRNRF: 0 levothyroxine 112 MCG tablet 112 mcg PO DAILY RF: 0 metformin 500 MG tablet extended release 24hr 1,000 mg PO DAILY RF: 0 propranolol 60 MG capsule,extended release 24 hr 60 mg PO DAILY RF: 0 aspirin [Aspir-81] 81 MG tablet,delayed release (DR/EC) 81 mg PO DAILY RF: 0 Discharge Instructions Instructions: Weakness (ED), Hypomagnesemia (ED) Additional Instructions: Encourage hydration. Please begin daily magnesium supplement. You have an appointment with primary care next February [address] Franz. Referral for physical therapy is attached, we may discuss home care physical therapy further with your caser in as needed Please call caser in, Suzi Bautista tomorrow, to discuss living situation and further home needs. [phone] ex. [phone] If Philomena develops new/worsening symptoms please seek care urgently once again. Stand Alone Forms: Physical Therapy Referral Referrals: Leti Franz MD [Primary Care Provider] - ([phone]) Discharge Data Discharge Date/Time-TO BE ENTERED AT DEPARTURE: 02/10/18 14:30 Medical Decision Making Patient is a 72-year-old female with history of developmental delay, diabetes, hypertension, high cholesterol, tardive dyskinesia, migraine, GERD, diabetes, schizophrenia, anxiety, brought in via EMS from [place], with multiple chief complaints. She was seen here twice in the past week. At that time, she was endorsing bilateral lower extremity weakness, increased tremors and urinary changes. On her arrival today, she initially endorsed to nursing staff abdominal discomfort. She continues to endorse some abdominal discomfort primarily along the left side. Reports that it is diffuse along the left side. Denies any nausea or vomiting. Continues to have some mild diarrhea but denies any blood in her stool. States that her urination has been diminished. She is reporting that she is having some bilateral lower extremity weakness that is unchanged over the past week. Review of the previous visits show that the patient has been much improved after receiving fluids. She did have low magnesium when seen here 2 days ago and felt much improved after this was replenished. Denies any fevers or chills. No chest pain, shortness of breath. Denies any headache or back pain. On exam, the patient appears in no acute distress. No abdominal pain is elicited with palpation. No CVA tenderness. Patient has strength equal bilaterally in the lower extremities. No saddle paresthesias. No acute neurologic changes are noted. Will obtain repeat laboratory evaluation. She had a CT scan of the last week and no recent fall. Do not feel that repeat imaging at this time is needed as this seems to be continuation of the symptoms and she is denying any acute change in these. Sister is present and reports that patient is at her baseline. She does not note a change from her baseline. Sister expresses concern for her recent ED visits. Sister, patient and I tried to explore this further. Patient is now reporting that she is unhappy with her currently living situation and she would like to move to a higher level of care. Sister does not note change in movement habits, speech or mentation. Laboratory evaluation significant for low magnesium at 1.6. this is consistent for where the patient has been at the last 2 visits. Will begin oral replenishment and advised daily magnesium supplementation which they are in agreement with. Patient has had multiple UTI in the past, no evidence of this todya. The patient's primary care office. Spoke with nursing staff his primary care physician is not available. We discussed the patient's multiple visits. I advised that we will be starting her on daily magnesium supplementation. We discussed discontinuation of feeling weak. I have requested for physical therapy to evaluate the patient and will discuss possible physical therapy interventions as they see fit. However, at this point I do not see any acute emergent illness that would prompt any further workup today. I was able to make an appointment with the primary care physician next week Also contacted patient's caser in. She is not in the office today. However , I was able to speak with 1 of her coworkers. I expressed my concerns and the patient's wishes to move to a higher level of care. We also discussed continuation of therapy. She has requested that the patient's caser in reach out to her tomorrow to make a plan for further care. Physical therapy evaluated the patient. They reported that she was able to ambulate well and unassisted with her walker. Patient does have a walker at baseline at home. Advised that if the patient continues to have the sensation of weakness she continue to use the walker. However, they do not see any evidence to suggest acute weakness or change in gait. They did advise outpatient physical therapy to help with generalized weakness. I did discuss with patient who is in agreement. Referral for outpatient physical therapy will be given. Patient was able to use walker well. Discussed laboratory findings, physical therapy evaluation, discussion with caser in as well as primary care office with the patient and her sister. We discussed magnesium supplementation physical therapy referral which the patient seems quite excited about. She is requesting a different type of walker , one that allows for her to be able to sit down when she likes, she will discuss this further with her caser in tomorrow. Patient's sister did offer for patient to come home with her today and stay with her, however the patient declines she would like to go home to her. We discussed new/worsening symptoms and when to seek care urgently once again. We discussed the plan moving forward in depth. All of their questions and concerns were addressed and they are in agreement with this plan per HPI General Mode of arrival: EMS . Date/Time Provider Initiated Documentation: 02/10/18 09:46 . Limitations to Documentation: no limitations . Information obtained by: patient and family . History of Present Illness 72 year old F presents to the emergency department with the chief complaint of abdominal pain, lower extremity weakness, described as moderate, Quality is described as aching, and is localized to the abdomen (left side of abdomen). Patient reports no radiation; denies radiation to back. Patient started experiencing this day(s) and it has been constant. No relieving factors improve symptom(s), No exacerbating factors reported . Patient notes weakness; denies chest pain, cough, fever/chills, headaches, loss of appetite, nausea/vomiting, rash, shortness of breath and syncope. Patient did receive the following treatments prior to arrival, none Related Data Home Medications Medication Instructions Recorded Confirmed simvastatin [Zocor] 20 mg PO HS tab-cap 11/28/13 02/08/18 blood sugar diagnostic [FreeStyle strip 06/04/16 12/13/17 Test] dexlansoprazole [Dexilant] 30 mg PO BID tab-cap 05/06/17 02/08/18 escitalopram oxalate 30 mg PO DAILY tab-cap 05/06/17 02/08/18 aspirin [Aspir-81] 81 mg PO DAILY 06/30/17 02/08/18 propranolol 60 mg PO DAILY 06/30/17 02/08/18 albuterol sulfate [Ventolin HFA] 2 puff INHALATION PRN PRN 11/04/17 02/08/18 levothyroxine 112 mcg PO DAILY 11/04/17 02/08/18 metformin 1,000 mg PO DAILY 11/04/17 02/08/18 clonazepam 0.5 mg tablet 1.5 mg PO HS #90 tab 12/13/17 02/08/18 insulin glargine (U-100) 100 60 unit SUBCUT DAILY ml 12/13/17 02/08/18 unit/mL (3 mL) subcutaneous pen magnesium oxide 400 mg PO DAILY #20 cap 02/10/18 Previous Rx's Medication Instructions Recorded clonazepam 0.5 mg tablet 1.5 mg PO HS #90 tab 12/13/17 magnesium oxide 400 mg PO DAILY #20 cap 02/10/18 Allergies Allergy/AdvReac Type Severity Reaction Status Date / Time codeine Allergy Severe Unverified 02/10/18 09:52 Penicillins Allergy Severe Unverified 02/10/18 09:52 bupropion Allergy Intermediate Unverified 02/10/18 09:52 tetrabenazine Allergy Intermediate Skin Rash Unverified 02/10/18 09:52 lisinopril Allergy Mild Unverified 02/10/18 09:52 oxybutynin chloride Allergy Unverified 02/10/18 09:52 [From El] General Stated Complaint: Abd Prob VIRGIE: 3 Review of Systems Constitutional Reports as per HPI, Denies chills, Denies fatigue, Denies fever(s), Denies headache(s) and Reports weakness ENT Denies dizziness, Denies headache(s) and Denies neck pain Cardiovascular Reports as per HPI, Denies chest pain, Denies syncope and Denies dyspnea Respiratory Denies dyspnea Gastrointestinal Reports as per HPI, Reports abdominal pain, Denies melena, Denies bloating, Reports change in stool character (states that her stool has been softer than typical), Denies nausea and Denies vomiting Genitourinary Reports other (reports diminished urination. Had previously endorses frequency, urgency, this has since stopped) Musculoskeletal Reports as per HPI, Reports abnormal gait (reports difficulty ambulating secondary to weakness in gait, states this has been going on for the past few weeks), Denies back pain, Denies myalgias, Denies arthralgias, Denies joint swelling, Denies limited range of motion, Denies muscle cramps, Reports muscle weakness (reports weakness in bilateral lower legs), Denies neck pain, Denies numbness, Denies radiating pain into limb and Denies tingling Integumentary/Breasts Reports as per HPI and Denies rash Neurologic Reports as per HPI, Denies abnormal movements, Denies abnormal speech, Reports abnormal gait (reports difficulty ambulating secondary to weakness in gait, states this has been going on for the past few weeks), Denies confusion, Denies dizziness, Denies syncope, Denies headache(s), Denies lack of coordination, Denies numbness, Denies tingling and Reports weakness Psychiatric Denies confusion Endocrine Denies fatigue [facility] Developmental delay, borderline (Chronic) Migraine headache without aura (Chronic) Osteoporosis (Chronic) Depression with anxiety (Chronic) Chronic low back pain (Chronic) Osteoarthritis (Chronic) Hypothyroidism (Chronic) Arias's esophagus (Chronic) GERD (gastroesophageal reflux disease) (Chronic) Obstructive sleep apnea on CPAP (Chronic) Type 2 diabetes mellitus (Chronic) Hyperlipidemia (Chronic) Hypertension (Chronic) Urgency incontinence (Chronic 05/01/15) Tardive dyskinesia (Chronic 01/26/17) 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) Sensorineural hearing loss, bilateral (Chronic 01/07/15) Dysphagia, unspecified (Chronic 06/22/16) Family History Father Tremor Brother Tremor Sister Tremor Mother Heart disease Hypertension Sister Breast cancer Sister Stomach cancer H/O bilateral cataract extraction (Acute) H/O umbilical hernia repair (Acute) History of hysterectomy with bilateral oophorectomy (Acute) S/P cholecystectomy (Acute) H/O tubal ligation (Chronic) Social History housing: assisted living facility number of children: 8 current occupational status: disabled Smoking/Tobacco Use Status: Never alcohol intake: never substance use type: does not use additional social history: She attends [employer] 3x per week. Exam Const General: cooperative, healthy appearing, comfortable, no acute distress and well developed Nutritional Appearance: well nourished and overweight Orientation: alert, awake and oriented x3 Limitations: mental status not altered HENMT Head: normal to inspection Mouth: moist mucous membranes Resp Effort & Inspection: normal respiratory effort, able to speak in complete sentences and no respiratory distress Auscultation: clear to auscultation bilaterally, no rales, no rhonchi and no wheezes Cardio Rate: regular rate Rhythm: regular rhythm Heart Sounds: S1 normal and S2 normal GI Inspection: normal to inspection, no abdominal wall ecchymosis, no edema, non- distended and no visible herniation Palpation: soft, no hepatosplenomegaly, not firm, no guarding, no hernias, not rigid and nontender Auscultation: normal bowel sounds Back/Spine/Pelvis Back: no CVA tenderness Thoracic/Lumbar Spine: thoracic and lumbar spine normal to inspection Skin General skin exam: ecchymosis (ecchymosis to the left forearm, this does not appear new. ) Trauma: no lacerations or abrasions Neuro General: alert, awake, oriented x3, gait normal, tone normal, moves all extremities, no meningeal signs, no focal motor deficits, CN's II-XI intact bilaterally and deep tendon reflexes not 2+ bilaterally (Patient is gaurding in lower extremities, having difficulty having her relax enough for test. ) Cognition: normal cognition Speech: speech normal Gait: normal gait (ambulating with walker) Motor: muscle tone normal throughout, strength 5/5 throughout, no pronator drift , no fasciculations and tremor (bilateral upper extremities, patient and sister report this is typical and unchanged. ) Sensory Exam: no sensory deficits noted and normal double simultaneous stimulation Coordination: [id number] test normal and [id number] test normal Extrem General: normal to inspection (tremor as above to BUE), full ROM, normal capillary refill, no clubbing, cyanosis or edema, no pedal edema and no calf tenderness Psych Appearance: grossly normal and well kempt Mental Status: mental status grossly normal Speech and Movement: speech and movement normal Course Vital Signs Temperature 36.4 C L 02/10/18 09:48 Pulse 71 02/10/18 09:48 Respiratory Rate 18 02/10/18 09:48 Pulse Oximetry 95 02/10/18 09:48 Temperature 36.4 C L 02/10/18 09:48 Temperature Source Skin 02/10/18 09:48 Pulse 71 02/10/18 09:48 Respiratory Rate 18 02/10/18 09:48 Pulse Oximetry 95 02/10/18 09:48 Oxygen Delivery Method Room Air 02/10/18 09:48 Oxygen Flow Rate 0 02/10/18 09:48
[2018-02-10 10:50] LABS: Bilirubin Negative (Negative); Blood Negative (Negative); Clarity Clear; Glucose Negative (Negative); Ketones Negative (Negative); Leukocyte Esterase Negative (Negative); Nitrite Negative (Negative); Urobilinogen 0.2 EU/dL (Up TO 0.2); pH 5.5 (5-8)
[2018-02-10 11:04] LABS: Abs Immature Grans 0.01 k/cumm (0.0-0.09); Absolute Basophil Count 0.04 k/cumm (0.0-0.2); Absolute Eosinophil Count 0.33 k/cumm (0.0-0.7); Absolute Lymphocyte Count 2.98 k/cumm (1.2-3.4); Absolute Monocyte Count 0.44 k/cumm (0.11-0.7); Absolute Neutrophil Count 2.61 k/cumm (1.2-6.7); Basophils % 0.6; Eosinophils % 5.1; HGB 13.7 g/dL (12.0-15.5); Immature Grans % 0.2; Lymphocytes % 46.5; Mean Corp. HGB Concentration 33.4 g/dL (32.0-36.0); Mean Corpuscular Hemoglobin 30.7 pg (27.0-33.0); Mean Corpuscular Volume 91.9 fL (80-95); Mean Platelet Volume 10.9 fL (8.0-11.0); Monocytes % 6.9; Neutrophils % 40.7; Platelet Count 214 x1000/uL (130-400); RBC 4.46 m/cumm (4.00-5.20); RBC Distribution Width 12.5 % (11.7-14.6); White Blood Cell Count 6.41 k/cumm (4.4-10.8)
[2018-02-10 11:14] LABS: ALT 26 U/L (12-78); AST 23 U/L (15-37); Alkaline Phosphatase 103 U/L (46-116); Anion Gap 7.2 mmol/L (3-11); BUN 7 mg/dL (7-18); Bilirubin, Total 0.5 mg/dL (0.2-1.0); CO2 28.8 mmol/L (21.0-32.0); CREATININE 0.74 mg/dL (0.55-1.02); Calcium 8.7 mg/dL (8.5-10.1); Chloride 106 mmol/L (98-107); Glucose 142 mg/dL (70-100); Lipase 101 U/L (73-393); Magnesium 1.6 mg/dL (1.8-2.4); Potassium 3.9 mmol/L (3.5-5.1); Sodium 142 mmol/L (136-145); TSH (W/Ref FT4) 3.29 uIU/mL (0.358-3.74)
[2018-02-10 11:18] LABS: Troponin I < 0.02 ng/mL (0.00-0.06)
--- NOTE | 2018-02-10 11:18 | PDOC.ERCMPRO ---
Care Management Progress Note CM received voicemail from Lizbeth Navarrete; BRI at [facility] reporting Philomena has had multiple ED visits and was being directed to the ED again today. She was requesting support and discussion central to intervention to support Philomena's success in the community and keep her from returning to the ED. CM left voicemail for Lizbeth regarding her message and requesting information regarding service connection @0930. CM received call from Kathy in the ED requesting housing support for Philomena as she was reporting feeling unhappy about where she lives. Kathy reported Philomena's symptoms are vague and she has no identified medical needs at this time; consistent with her other ED visits. CM deferred housing support to Lizbeth Guadarrama's, Philomena's community based CM-Philomena also has a developmental delay and may be attached to [facility] services as well-undetermined at this time.
[2018-02-10] MEDS: Magnesium Oxide 400 MG TAB PO (11:39)
--- NOTE | 2018-02-10 12:28 | CMPROGNOTE_ITS ---
Care Management Progress Note CM received voicemail from Lizbeth Navarrete; BRI at [facility] reporting Philomena has had multiple ED visits and was being directed to the ED again today. She was requesting support and discussion central to intervention to support Philomena's success in the community and keep her from returning to the ED. CM left voicemail for Lizbeth regarding her message and requesting information regarding service connection @0930. CM received call from Kathy in the ED requesting housing support for Philomena as she was reporting feeling unhappy about where she lives. Kathy reported Philomena' s symptoms are vague and she has no identified medical needs at this time; consistent with her other ED visits. CM deferred housing support to Lizbeth Guadarrama 's, Philomena's community based CM-Philomena also has a developmental delay and may be attached to [facility] services as well-undetermined at this time.
--- NOTE | 2018-02-10 13:35 | PT.INIE ---
Date of service: 02/10/18 Time of Service: 13:35 PT Notes Inpatient Physical Therapy Evaluation Date: 02/10/2018 Referring Doctor: Kathy Ram PT Orders: PT CONSULT: Patient notes weakness in lower extremities, needs gait assessment. Precautions: Fall precautions Patient Profile/Admitting Diagnosis: Patient is a 9-year-old female presenting to the emergency department with bilateral lower extremity weakness, increased tremors. PMHX: Developmental delay, essential tremor, tardive dyskinesia, tardive akathisia, diabetes mellitus x2, schizophrenia, anxiety, chronic low back pain, osteoporosis, obstructive sleep apnea uses CPAP at night, urinary incontinence, bilateral sensorineural hearing loss, barrettes esophagus, gastroesophageal reflux disease, migraine, hypertension, hypercholesterolemia, dysphagia Social History/Home Situation: Patient reports living alone and an apartment at [facility], states her sister checks in on her. Baseline mobility independent transfers independent gait with FWW, independent with ADLs. Patient uses [facility] community transportation ([facility]) to get to appointments and do errands. Attends [facility] daycare [employer]. Equipment Owned/DME: Has a cane but unable to use it due to tremors, front wheel walker, shower chair. Subjective: Patient is a 72 year-old female in the emergency department on a gurney bed, reports new onset lower extremity weakness the last 2 days. Patient states she is not sure why the weakness is happening, no falls or significant events to contribute to lower extremity weakness. Objective: Mental Status: A and O x3 Pain: No complaints of pain ROM: Right Upper Extremity: AROM WNL Left Upper Extremity: AROM WNL Right Lower Extremity: AROM WNL Left Lower Extremity: AROM WNL Strength: Right Upper Extremity: 5/5 throughout Left Upper Extremity: 5/5 throughout Right Lower Extremity: 5/5 hip flexion, 5/5 quad 5//5 DF and PF Left Lower Extremity: 5/5 throughout Bed Mobility/Transfers: Supine to sit: Independent from gurney bed Sit stand: Independent with FWW Stand to sit: Independent Sit to supine: Independent able to get gurney legs on the gurney Gait: gait with FW W 60 feet x2, slow steady step through gait pattern no loss of balance, no weakness noted to bilateral lower extremities. Patient reports she feels but cannot provide more specific description. Balance: Static Sitting: Normal Dynamic Sitting: Normal Static Standing: Fair Dynamic Standing: Fair Special Tests: Mobility Limitations Standardized Measure [facility] AM-PAC 6 clicks Basic Mobility Inpatient Short Form: Raw Score: 18 standardized Score: 43.63 CMS Score: 46.58% CMS Modifier: Informed Consent/Education: Patient instructed in purpose of PT consult and plan of care. Assessment: Patient is a 72 year old female referred to physical therapy services with the diagnosis of lower extremity weakness, increased tremors. Patient presents at baseline level of independent transfers, she is supervision gait with front wheel walker 60 feet x2. Patient reports lower extremity weakness, but no significant weakness noted on evaluation except for slight weakness right hip flexion, no loss of balance with gait, good strength with muscle testing of lower extremities and patient able to perform step through gait pattern. Patient should be able to return to home setting, recommend use of FWW for gait stability, would benefit from home PT or outpatient PT for lower extremity strengthening to improve her confidence with functional activities and gait. Impairments are contributing to the following functional limitations: AMPAC score CMS Score: 46.58% Patient is assessed as a Low [id number] complexity based on the following: History: See above Examination: See above Presentation: Stable Decision Making: AMPAC score CMS Score: 46.58% Goals: Not applicable Plan of Care/Treatment Plan: PT eval only DISCHARGE RECOMMENDATIONS: Home with home health PT or outpatient PT follow-up for lower extremity strengthening, may benefit from increased home services and community services deferred to her community support TREATMENT CODE/TIME: 23 minutes IE 1333 G Codes in the area mobility of walking and moving around: current status [id number] CK; projected status GP [id number]. Discharge status (if discharging) GP [id number] CK based on AMPAC scores Kirsty Merrill PT
[2018-02-10 13:40] VITALS: BP 127/86; PULSE 66; O2SAT 100
--- NOTE | 2018-02-10 13:40 | IN_ITS ---
Date of service: 02/10/18 Time of Service: 13:35 PT Notes Inpatient Physical Therapy Evaluation Date: 02/10/2018 Referring Doctor: Kathy Ram PT Orders: PT CONSULT: Patient notes weakness in lower extremities, needs gait assessment. Precautions: Fall precautions Patient Profile/Admitting Diagnosis: Patient is a 9-year-old female presenting to the emergency department with bilateral lower extremity weakness, increased tremors. PMHX: Developmental delay, essential tremor, tardive dyskinesia, tardive akathisia, diabetes mellitus x2, schizophrenia, anxiety, chronic low back pain , osteoporosis, obstructive sleep apnea uses CPAP at night, urinary incontinence , bilateral sensorineural hearing loss, barrettes esophagus, gastroesophageal reflux disease, migraine, hypertension, hypercholesterolemia, dysphagia Social History/Home Situation: Patient reports living alone and an apartment at [facility], states her sister checks in on her. Baseline mobility independent transfers independent gait with FWW, independent with ADLs. Patient uses [facility] transportation ([facility]) to get to appointments and do errands. Attends [employer] [facility] [employer] day[employer]. Equipment Owned/DME: Has a cane but unable to use it due to tremors, front wheel walker, shower chair. Subjective: Patient is a 72 year-old female in the emergency department on a gurney bed, reports new onset lower extremity weakness the last 2 days. Patient states she is not sure why the weakness is happening, no falls or significant events to contribute to lower extremity weakness. Objective: Mental Status: A and O x3 Pain: No complaints of pain ROM: Right Upper Extremity: AROM WNL Left Upper Extremity: AROM WNL Right Lower Extremity: AROM WNL Left Lower Extremity: AROM WNL Strength: Right Upper Extremity: 5/5 throughout Left Upper Extremity: 5/5 throughout Right Lower Extremity: 5/5 hip flexion, 5/5 quad 5//5 DF and PF Left Lower Extremity: 5/5 throughout Bed Mobility/Transfers: Supine to sit: Independent from gurney bed Sit stand: Independent with FWW Stand to sit: Independent Sit to supine: Independent able to get gurney legs on the gurney Gait: gait with FW W 60 feet x2, slow steady step through gait pattern no loss of balance, no weakness noted to bilateral lower extremities. Patient reports she feels but cannot provide more specific description. Balance: Static Sitting: Normal Dynamic Sitting: Normal Static Standing: Fair Dynamic Standing: Fair Special Tests: Mobility Limitations Standardized Measure [facility] AM-PAC 6 clicks Basic Mobility Inpatient Short Form: Raw Score: 18 standardized Score: 43.63 CMS Score: 46.58% CMS Modifier: Informed Consent/Education: Patient instructed in purpose of PT consult and plan of care. Assessment: Patient is a 72 year old female referred to physical therapy services with the diagnosis of lower extremity weakness, increased tremors. Patient presents at baseline level of independent transfers, she is supervision gait with front wheel walker 60 feet x2. Patient reports lower extremity weakness, but no significant weakness noted on evaluation except for slight weakness right hip flexion, no loss of balance with gait, good strength with muscle testing of lower extremities and patient able to perform step through gait pattern. Patient should be able to return to home setting, recommend use of FWW for gait stability, would benefit from home PT or outpatient PT for lower extremity strengthening to improve her confidence with functional activities and gait. Impairments are contributing to the following functional limitations: AMPAC score CMS Score: 46.58% Patient is assessed as a Low 37646 complexity based on the following: History: See above Examination: See above Presentation: Stable Decision Making: AMPAC score CMS Score: 46.58% Goals: Not applicable Plan of Care/Treatment Plan: PT eval only DISCHARGE RECOMMENDATIONS: Home with home health PT or outpatient PT follow-up for lower extremity strengthening, may benefit from increased home services and community services deferred to her community support TREATMENT CODE/TIME: 23 minutes IE 1333 G Codes in the area mobility of walking and moving around: current status [id number] CK; projected status GP [id number]. Discharge status (if discharging) GP [id number] CK based on AMPAC scores Kirsty Merrill PT
== END 2018-02-10 14:30 | disposition home or self-care (01) ==
PROVIDERS: Emergency Provider Physician Assistant; PCP Family Medicine
DX: R53.1 Weakness (principal); E83.42 Hypomagnesemia; I10 Essential (primary) hypertension; E11.9 Type 2 diabetes mellitus without complications; Z79.4 Long term (current) use of insulin
CPT/HCPCS: 36415; 80053; 83690; 93005; 97161; 99284; 81003; 83735; 84443; 84484; 85025; 93010; G8978

== ENCOUNTER 2018-02-17 05:11 | Emergency (ER) | payer MEDICARE, MEDICAID, SELFPAY ==
[2018-02-17] VITALS (12 sets, daily range): BP systolic 111–137; BP diastolic 63–97; PULSE 89–97; RESP 18–28; TEMP 36.7–37.2; O2SAT 88–97
--- NOTE | 2018-02-17 05:39 | DI.CT_ITS ---
SYMPTOM/DIAGNOSIS: FALL, ALTERED MENTAL STATUS NONCONTRAST HEAD CT: Comparison is made with recent exam of 02 Feb 2018. No intracranial hemorrhage, mass or acute infarct is seen. There are mild patchy densities in the white matter consistent with small vessel disease. There is no evidence of skull fracture. The sinuses and mastoid air cells appear clear where visualized. IMPRESSION: No acute abnormality. CT CERVICAL SPINE: There is no evidence of fracture. The alignment is normal. There are degenerative disc changes at C5-6 and C6-7. There are facet degenerative changes greatest at C7, T-1. The visualized portions of the lung apices show no evidence of pneumothorax. There is no paraspinal soft tissue swelling. IMPRESSION: Degenerative changes of the lower cervical spine. No acute abnormality.
--- NOTE | 2018-02-17 05:39 | DI.RAD_ITS ---
SYMPTOM/DIAGNOSIS: RIGHT HIP PAIN AFTER FALL. PELVIC AND RIGHT HIP: Comparison is made with 08 June 2008. No fracture or dislocation is seen. There is mild acetabular spurring, not significantly changed from the previous exam. IMPRESSION: Mild degenerative changes. No acute abnormality.
--- NOTE | 2018-02-17 05:44 | DI.RAD_ITS ---
SYMPTOM/DIAGNOSIS: FALL AP CHEST: Comparison is made with 07 Feb 2018. Heart size is at the upper limits of normal. The lungs are not well inflated but appear grossly clear. There are old bilateral rib fractures. No pneumothorax is seen. IMPRESSION: No acute abnormality.
[2018-02-17 06:01] LABS: Abs Immature Grans 0.01 k/cumm (0.0-0.09); Absolute Basophil Count 0.02 k/cumm (0.0-0.2); Absolute Eosinophil Count 0.12 k/cumm (0.0-0.7); Absolute Lymphocyte Count 1.23 k/cumm (1.2-3.4); Absolute Monocyte Count 0.33 k/cumm (0.11-0.7); Absolute Neutrophil Count 6.02 k/cumm (1.2-6.7); Basophils % 0.3; Eosinophils % 1.6; HCT 41.8 % (36.0-46.0); HGB 14.2 g/dL (12.0-15.5); Immature Grans % 0.1; Lymphocytes % 15.9; Mean Corpuscular Volume 91.3 fL (80-95); Mean Platelet Volume 11.2 fL (8.0-11.0); Monocytes % 4.3; Neutrophils % 77.8; Platelet Count 209 x1000/uL (130-400); RBC 4.58 m/cumm (4.00-5.20); RBC Distribution Width 12.5 % (11.7-14.6); White Blood Cell Count 7.73 k/cumm (4.4-10.8)
--- NOTE | 2018-02-17 06:08 | W.ED.GENAD ---
Discharge Plan Disposition Condition: Stable Discharge Details Chief Complaint: Orthopedic Reason For Visit: RAZIA Primary Care Provider: Leti Franz ED Provider: Delano Zamorano [place] Meds and New Rx's Prescriptions: No Action clonazepam 0.5 mg tablet 1.5 mg PO HS Qty: 90 RF: 2 simvastatin [Zocor] 10 MG tablet 20 mg PO HS RF: 0 blood sugar diagnostic [FreeStyle Test] 1 EACH strip 1 ea Miscellaneous DAILY RF: 0 escitalopram oxalate 20 MG tablet 30 mg PO DAILY RF: 0 dexlansoprazole [Dexilant] 30 MG capsule,biphase delayed releas 30 mg PO BID RF: 0 insulin glargine [Basaglar KwikPen U-100 Insulin] 100 unit/mL (3 mL) insulin pen 60 unit subcut DAILY RF: 0 albuterol sulfate [Ventolin HFA] 200 PUFF HFA aerosol inhaler 2 puff Inhalation PRN PRNRF: 0 levothyroxine 112 MCG tablet 112 mcg PO DAILY RF: 0 metformin 500 MG tablet extended release 24hr 1,000 mg PO DAILY RF: 0 magnesium oxide 400 mg capsule 400 mg PO DAILY Qty: 20 RF: 0 propranolol 60 MG capsule,extended release 24 hr 60 mg PO DAILY RF: 0 aspirin [Aspir-81] 81 MG tablet,delayed release (DR/EC) 81 mg PO DAILY RF: 0 HPI General Mode of arrival: EMS. Date/Time Provider Initiated Documentation: 02/17/18 05:27. Information obtained by: patient and EMS. HPI Narrative: Patient transported from [facility] for evaluation after fall. Patient reports sliding out of her chair around 10 last night and laying on the floor. However, patient also thinks that it is 2008. She seems to be having difficulty providing a history. Complains of bilateral hip pain. Complains of mild headache. States she was too weak to get to a phone until this morning. Related Data Home Medications Medication Instructions Recorded Confirmed simvastatin [Zocor] 20 mg PO HS tab-cap 11/28/13 02/17/18 blood sugar diagnostic [FreeStyle strip 06/04/16 02/17/18 Test] dexlansoprazole [Dexilant] 30 mg PO BID tab-cap 05/06/17 02/17/18 escitalopram oxalate 30 mg PO DAILY tab-cap 05/06/17 02/17/18 aspirin [Aspir-81] 81 mg PO DAILY 06/30/17 02/17/18 propranolol 60 mg PO DAILY 06/30/17 02/17/18 albuterol sulfate [Ventolin HFA] 2 puff INHALATION PRN PRN 11/04/17 02/17/18 levothyroxine 112 mcg PO DAILY 11/04/17 02/17/18 metformin 1,000 mg PO DAILY 11/04/17 02/17/18 clonazepam 0.5 mg tablet 1.5 mg PO HS #90 tab 12/13/17 02/17/18 insulin glargine (U-100) 100 60 unit SUBCUT DAILY ml 12/13/17 02/17/18 unit/mL (3 mL) subcutaneous pen magnesium oxide 400 mg PO DAILY #20 cap 02/10/18 02/17/18 Previous Rx's Medication Instructions Recorded clonazepam 0.5 mg tablet 1.5 mg PO HS #90 tab 12/13/17 magnesium oxide 400 mg PO DAILY #20 cap 02/10/18 Allergies Allergy/AdvReac Type Severity Reaction Status Date / Time codeine Allergy Severe Unverified 02/17/18 05:26 Penicillins Allergy Severe Unverified 02/17/18 05:26 bupropion Allergy Intermediate Unverified 02/17/18 05:26 tetrabenazine Allergy Intermediate Skin Rash Unverified 02/17/18 05:26 lisinopril Allergy Mild Unverified 02/17/18 05:26 oxybutynin chloride Allergy Unverified 02/17/18 05:26 [From Ditropan] General Stated Complaint: Orthopedic VIRGIE: 3 PFSH Social History housing: assisted living facility number of children: 8 current occupational status: disabled Smoking/Tobacco Use Status: Never alcohol intake: never substance use type: does not use additional social history: She attends [employer] 3x per week. Course Vital Signs Temperature 98.1 F 02/17/18 05:13 Pulse 95 H 02/17/18 05:13 Respiratory Rate 18 02/17/18 05:13 Blood Pressure 131/72 02/17/18 05:13 Pulse Oximetry 96 02/17/18 05:13 Temperature 98.1 F 02/17/18 05:13 Temperature Source Temporal Artery Scan 02/17/18 05:13 Pulse 95 H 02/17/18 05:13 Respiratory Rate 18 02/17/18 05:13 Respiratory Effort 02/17/18 05:13 Blood Pressure 131/72 02/17/18 05:13 Pulse Oximetry 96 02/17/18 05:13 Oxygen Delivery Method Room Air 02/17/18 05:13 Oxygen Flow Rate 0 02/17/18 05:13 Pain Level 5 02/17/18 05:23 Lab/Test Results Lab/Test Results: Laboratory Tests Range/Units 02/17/18 05:15 WBC (4.4-10.8) k/cumm 7.73 RBC (4.00-5.20) m/cumm 4.58 Hgb (12.0-15.5) g/dL 14.2 Hct (36.0-46.0) % 41.8 MCV (80-95) fL 91.3 MCH (27.0-33.0) pg 31.0 MCHC (32.0-36.0) g/dL 34.0 RDW (11.7-14.6) % 12.5 Plt Count (130-400) x1000/uL 209 MPV (8.0-11.0) fL 11.2 H Immature Gran % 0.1 Neutrophils % 77.8 Lymphocytes % 15.9 Monocytes % 4.3 Eosinophils % 1.6 Basophils % 0.3 Absolute Neutrophils (1.2-6.7) k/cumm 6.02 Absolute Lymphocytes (1.2-3.4) k/cumm 1.23 Absolute Monocytes (0.11-0.7) k/cumm 0.33 Absolute Eosinophils (0.0-0.7) k/cumm 0.12 Absolute Basophils (0.0-0.2) k/cumm 0.02
[2018-02-17 06:16] LABS: ALT 29 U/L (12-78); AST 22 U/L (15-37); Albumin 3.4 g/dL (3.4-5.0); Alkaline Phosphatase 118 U/L (46-116); Anion Gap 8.9 mmol/L (3-11); BUN 12 mg/dL (7-18); Bilirubin, Total 0.5 mg/dL (0.2-1.0); CO2 28.1 mmol/L (21.0-32.0); CREATININE 0.84 mg/dL (0.55-1.02); Calcium 8.7 mg/dL (8.5-10.1); Chloride 101 mmol/L (98-107); Creatine Kinase 110 U/L (26-192); Glucose 215 mg/dL (70-100); Potassium 4.1 mmol/L (3.5-5.1); Sodium 138 mmol/L (136-145); Total Protein 7.6 g/dL (6.4-8.2); Troponin I < 0.02 ng/mL (0.00-0.06)
--- NOTE | 2018-02-17 06:18 | ED.GENADUL_ITS ---
Discharge Plan Disposition Condition: Stable Discharge Details Chief Complaint: Orthopedic Reason For Visit: RAZIA Primary Care Provider: Leti Franz ED Provider: Delano Zamorano [place] Meds and New Rx's Prescriptions: No Action clonazepam 0.5 mg tablet 1.5 mg PO HS Qty: 90 RF: 2 simvastatin [Zocor] 10 MG tablet 20 mg PO HS RF: 0 blood sugar diagnostic [FreeStyle Test] 1 EACH strip 1 ea Miscellaneous DAILY RF: 0 escitalopram oxalate 20 MG tablet 30 mg PO DAILY RF: 0 dexlansoprazole [Dexilant] 30 MG capsule,biphase delayed releas 30 mg PO BID RF: 0 insulin glargine [Basaglar KwikPen U-100 Insulin] 100 unit/mL (3 mL) insulin pen 60 unit subcut DAILY RF: 0 albuterol sulfate [Ventolin HFA] 200 PUFF HFA aerosol inhaler 2 puff Inhalation PRN PRNRF: 0 levothyroxine 112 MCG tablet 112 mcg PO DAILY RF: 0 metformin 500 MG tablet extended release 24hr 1,000 mg PO DAILY RF: 0 magnesium oxide 400 mg capsule 400 mg PO DAILY Qty: 20 RF: 0 propranolol 60 MG capsule,extended release 24 hr 60 mg PO DAILY RF: 0 aspirin [Aspir-81] 81 MG tablet,delayed release (DR/EC) 81 mg PO DAILY RF: 0 HPI General Mode of arrival: EMS . Date/Time Provider Initiated Documentation: 02/17/18 05:27 . Information obtained by: patient and EMS . HPI Narrative: Patient transported from [facility] for evaluation after fall. Patient reports sliding out of her chair around 10 last night and laying on the floor. However, patient also thinks that it is 2008. She seems to be having difficulty providing a history. Complains of bilateral hip pain. Complains of mild headache. States she was too weak to get to a phone until this morning. Related Data Home Medications Medication Instructions Recorded Confirmed simvastatin [Zocor] 20 mg PO HS tab-cap 11/28/13 02/17/18 blood sugar diagnostic [FreeStyle strip 06/04/16 02/17/18 Test] dexlansoprazole [Dexilant] 30 mg PO BID tab-cap 05/06/17 02/17/18 escitalopram oxalate 30 mg PO DAILY tab-cap 05/06/17 02/17/18 aspirin [Aspir-81] 81 mg PO DAILY 06/30/17 02/17/18 propranolol 60 mg PO DAILY 06/30/17 02/17/18 albuterol sulfate [Ventolin HFA] 2 puff INHALATION PRN PRN 11/04/17 02/17/18 levothyroxine 112 mcg PO DAILY 11/04/17 02/17/18 metformin 1,000 mg PO DAILY 11/04/17 02/17/18 clonazepam 0.5 mg tablet 1.5 mg PO HS #90 tab 12/13/17 02/17/18 insulin glargine (U-100) 100 60 unit SUBCUT DAILY ml 12/13/17 02/17/18 unit/mL (3 mL) subcutaneous pen magnesium oxide 400 mg PO DAILY #20 cap 02/10/18 02/17/18 Previous Rx's Medication Instructions Recorded clonazepam 0.5 mg tablet 1.5 mg PO HS #90 tab 12/13/17 magnesium oxide 400 mg PO DAILY #20 cap 02/10/18 Allergies Allergy/AdvReac Type Severity Reaction Status Date / Time codeine Allergy Severe Unverified 02/17/18 05:26 Penicillins Allergy Severe Unverified 02/17/18 05:26 bupropion Allergy Intermediate Unverified 02/17/18 05:26 tetrabenazine Allergy Intermediate Skin Rash Unverified 02/17/18 05:26 lisinopril Allergy Mild Unverified 02/17/18 05:26 oxybutynin chloride Allergy Unverified 02/17/18 05:26 [From Ditropan] General Stated Complaint: Orthopedic VIRGIE: 3 PFSH Social History housing: assisted living facility number of children: 8 current occupational status: disabled Smoking/Tobacco Use Status: Never alcohol intake: never substance use type: does not use additional social history: She attends [employer] 3x per week. Course Vital Signs Temperature 98.1 F 02/17/18 05:13 Pulse 95 H 02/17/18 05:13 Respiratory Rate 18 02/17/18 05:13 Blood Pressure 131/72 02/17/18 05:13 Pulse Oximetry 96 02/17/18 05:13 Temperature 98.1 F 02/17/18 05:13 Temperature Source Temporal Artery Scan 02/17/18 05:13 Pulse 95 H 02/17/18 05:13 Respiratory Rate 18 02/17/18 05:13 Respiratory Effort 02/17/18 05:13 Blood Pressure 131/72 02/17/18 05:13 Pulse Oximetry 96 02/17/18 05:13 Oxygen Delivery Method Room Air 02/17/18 05:13 Oxygen Flow Rate 0 02/17/18 05:13 Pain Level 5 02/17/18 05:23 Lab/Test Results Lab/Test Results: Laboratory Tests Range/Units 02/17/18 05:15 WBC (4.4-10.8) k/cumm 7.73 RBC (4.00-5.20) m/cumm 4.58 Hgb (12.0-15.5) g/dL 14.2 Hct (36.0-46.0) % 41.8 MCV (80-95) fL 91.3 MCH (27.0-33.0) pg 31.0 MCHC (32.0-36.0) g/dL 34.0 RDW (11.7-14.6) % 12.5 Plt Count (130-400) x1000/uL 209 MPV (8.0-11.0) fL 11.2 H Immature Gran % 0.1 Neutrophils % 77.8 Lymphocytes % 15.9 Monocytes % 4.3 Eosinophils % 1.6 Basophils % 0.3 Absolute Neutrophils (1.2-6.7) k/cumm 6.02 Absolute Lymphocytes (1.2-3.4) k/cumm 1.23 Absolute Monocytes (0.11-0.7) k/cumm 0.33 Absolute Eosinophils (0.0-0.7) k/cumm 0.12 Absolute Basophils (0.0-0.2) k/cumm 0.02
--- NOTE | 2018-02-17 06:42 | DI.VRAD_ITS ---
EXAM: XR Chest, 1 View EXAM DATE/TIME: 02/17/2018 5:46 AM CLINICAL HISTORY: 72 years old, female; Injury or trauma; Fall; Initial encounter; Sprain or strain; Patient HX: S/P fall TECHNIQUE: XR of the chest, 1 view. COMPARISON: CR XR CHEST 2V PA LATERAL 02/07/2018 12:45 PM FINDINGS: Lungs: Chronic interstitial prominence. No consolidation. Pleural space: No pleural effusion. No pneumothorax. Heart/Mediastinum: Grossly stable accounting for changes in technique Bones/joints: Chronic appearing fourth through eighth right-sided rib deformities IMPRESSION: No acute findings. Dictated and Authenticated by: James Sim MD. Ordering:ROSALINA BRAND MD
--- NOTE | 2018-02-17 06:43 | DI.VRAD_ITS ---
EXAM: XR Right Hip with Pelvis when Performed, 2 or 3 Views EXAM DATE/TIME: 02/17/2018 5:46 AM CLINICAL HISTORY: 72 years old, female; Pain; Hip pain; Right hip; Patient HX: Right hip pain after fall. TECHNIQUE: XR Right hip with pelvis when performed, 2 or 3 views COMPARISON: CT ABD PELVIS WITH CONTRAST 11/04/2017 12:16 PM FINDINGS: Bones/joints: Mild degenerative changes No acute fracture or dislocation. Soft tissues: Normal. IMPRESSION: No acute findings. Dictated and Authenticated by: James Sim MD. Ordering:ROSALINA BRAND MD
--- NOTE | 2018-02-17 06:48 | DI.VRAD_ITS ---
EXAM: CT Head Without Contrast EXAM DATE/TIME: 02/17/2018 5:46 AM CLINICAL HISTORY: 72 years old, female; Injury or trauma; Fall; Initial encounter; Sprain or strain; Sprain or strain, cervical ligaments; Patient HX: Fall, altereed mental sataus. TECHNIQUE: Axial computed tomography images of the head/brain without contrast. All CT scans at this facility use at least one of these dose optimization techniques: automated exposure control; mA and/or kV adjustment per patient size (includes targeted exams where dose is matched to clinical indication); or iterative reconstruction. Coronal and sagittal reformatted images were created and reviewed. COMPARISON: CT HEAD WO 02/02/2018 5:38 PM FINDINGS: Brain: Mild volume loss. Chronic left cerebellar infarction. No hemorrhageNo significant white matter disease. No edema. Ventricles: Normal. No ventriculomegaly. Bones/joints: Normal. No acute fracture. Sinuses: Normal as visualized. No acute sinusitis. Mastoid air cells: Normal as visualized. No mastoid effusion. Soft tissues: Normal. IMPRESSION: No acute intracranial abnormality. EXAM: CT Cervical Spine Without Intravenous Contrast EXAM DATE/TIME: 02/17/2018 5:46 AM CLINICAL HISTORY: 72 years old, female; Injury or trauma; Fall; Initial encounter; Sprain or strain; Sprain or strain, cervical ligaments; Patient HX: Fall, altereed mental sataus. TECHNIQUE: Axial computed tomography images of the cervical spine without intravenous contrast. All CT scans at this facility use at least one of these dose optimization techniques: automated exposure control; mA and/or kV adjustment per patient size (includes targeted exams where dose is matched to clinical indication); or iterative reconstruction. Coronal and sagittal reformatted images were created and reviewed. COMPARISON: CT HEAD WO 02/02/2018 5:38 PM FINDINGS: Vertebrae: No acute fracture. Mild loss of vertebral body height is presumed degenerative. Cervical spine straightening without subluxation. Discs/Spinal canal/Neural foramina: No significant spinal stenosis. No significant neural foraminal narrowing. Soft tissues: Unremarkable. Lungs: Minimal subsegmental atelectasis IMPRESSION: No definite cervical fracture Dictated and Authenticated by: James Sim MD. Ordering:ROSALINA BRAND MD
[2018-02-17 07:04] LABS: Bilirubin Negative (Negative); Blood Trace-intact (Negative); Clarity Clear; Glucose Negative (Negative); Ketones Negative (Negative); Leukocyte Esterase Negative (Negative); Nitrite Negative (Negative); Urobilinogen 0.2 EU/dL (Up TO 0.2)
--- NOTE | 2018-02-17 07:04 | DI.CT_ITS ---
SYMPTOM/DIAGNOSIS: RIGHT HIP PAIN WITH NEGATIVE X-RAY CT PELVIS: There is no evidence of fracture or dislocation. There are mild degenerative changes. The bladder and visualized portions of the bowel are unremarkable. No soft tissue hematomas are seen. IMPRESSION: Mild degenerative changes. No acute abnormality.
--- NOTE | 2018-02-17 07:13 | W.ED.GENAD ---
Discharge Plan Disposition Patient Disposition: SNF (LEVEL 1) [facility] Condition: Stable Discharge Details Chief Complaint: Orthopedic Clinical Impression: Fall, Contusion of hip, right Reason For Visit: RAZIA Primary Care Provider: Leti Franz ED Provider: Amanuel Matias Home Meds and New Rx's Prescriptions: Continue clonazepam 0.5 mg tablet 1.5 mg PO HS Qty: 90 RF: 2 simvastatin [Zocor] 10 MG tablet 20 mg PO HS RF: 0 blood sugar diagnostic [FreeStyle Test] 1 EACH strip 1 ea Miscellaneous DAILY RF: 0 escitalopram oxalate 20 MG tablet 30 mg PO DAILY RF: 0 dexlansoprazole [Dexilant] 30 MG capsule,biphase delayed releas 30 mg PO BID RF: 0 insulin glargine [Basaglar KwikPen U-100 Insulin] 100 unit/mL (3 mL) insulin pen 60 unit subcut DAILY RF: 0 albuterol sulfate [Ventolin HFA] 200 PUFF HFA aerosol inhaler 2 puff Inhalation PRN PRNRF: 0 levothyroxine 112 MCG tablet 112 mcg PO DAILY RF: 0 metformin 500 MG tablet extended release 24hr 1,000 mg PO DAILY RF: 0 magnesium oxide 400 mg capsule 400 mg PO DAILY Qty: 20 RF: 0 propranolol 60 MG capsule,extended release 24 hr 60 mg PO DAILY RF: 0 aspirin [Aspir-81] 81 MG tablet,delayed release (DR/EC) 81 mg PO DAILY RF: 0 Discharge Instructions Instructions: Contusion in Adults (ED) Additional Instructions: follow up with your primary care provider's within 1-2 weeks if you have severe worsening pain, persistent vomit or fevers return to the emergency department Medical Decision Making <Delano Zamorano MD - Last Filed: 02/17/18 08:47> Patient seems confused and is only oriented to person and place. Unclear what baseline is, reviewing neuro note from earlier this fall documented as oriented x3. Patient seems confused. Clear evidence of Tardive dyskinesia present. Spine/head CT ordered due to confusion and unknown if hit head or not. Pain with ROM of right hip so film ordered. Labs, urine and chest x-ray ordered. Head and c spine CT negative. Chest x-ray negative. Right hip/pelvis x-ray negative though I thought faint troch disruption. CT ordered since pain with ROM. Labs unremarkable. Urine still pending. Patient signed over to Dr. Wills pending CT results and urine. HPI <Delano Zamorano MD - Last Filed: 02/17/18 08:47> General Mode of arrival: EMS. Date/Time Provider Initiated Documentation: 02/17/18 05:27. Limitations to Documentation: altered mental status. Information obtained by: patient and EMS. HPI Narrative: Patient brought in from [facility] by EMS after patient called due to fall overnight. Patient reports sliding out of chair onto the floor and being unable to get up. Eventually states she was able to crawl to the phone and call for help. She is complaining of bilateral hip pain. She complains of mild headache. She cannot tell me if she hit head or not. She seems confused. She does not know month/year. She is a poor historian. She denies fever, cough, CP, SOB, abdominal pain. Related Data Home Medications Medication Instructions Recorded Confirmed simvastatin [Zocor] 20 mg PO HS tab-cap 11/28/13 02/17/18 blood sugar diagnostic [FreeStyle strip 06/04/16 02/17/18 Test] dexlansoprazole [Dexilant] 30 mg PO BID tab-cap 05/06/17 02/17/18 escitalopram oxalate 30 mg PO DAILY tab-cap 05/06/17 02/17/18 aspirin [Aspir-81] 81 mg PO DAILY 06/30/17 02/17/18 propranolol 60 mg PO DAILY 06/30/17 02/17/18 albuterol sulfate [Ventolin HFA] 2 puff INHALATION PRN PRN 11/04/17 02/17/18 levothyroxine 112 mcg PO DAILY 11/04/17 02/17/18 metformin 1,000 mg PO DAILY 11/04/17 02/17/18 clonazepam 0.5 mg tablet 1.5 mg PO HS #90 tab 12/13/17 02/17/18 insulin glargine (U-100) 100 60 unit SUBCUT DAILY ml 12/13/17 02/17/18 unit/mL (3 mL) subcutaneous pen magnesium oxide 400 mg PO DAILY #20 cap 02/10/18 02/17/18 Previous Rx's Medication Instructions Recorded clonazepam 0.5 mg tablet 1.5 mg PO HS #90 tab 12/13/17 magnesium oxide 400 mg PO DAILY #20 cap 02/10/18 Allergies Allergy/AdvReac Type Severity Reaction Status Date / Time codeine Allergy Severe Unverified 02/17/18 05:26 Penicillins Allergy Severe Unverified 02/17/18 05:26 bupropion Allergy Intermediate Unverified 02/17/18 05:26 tetrabenazine Allergy Intermediate Skin Rash Unverified 02/17/18 05:26 lisinopril Allergy Mild Unverified 02/17/18 05:26 oxybutynin chloride Allergy Unverified 02/17/18 05:26 [From Ditropan] General Stated Complaint: Orthopedic VIRGIE: 3 Review of Systems <Delano Zamorano MD - Last Filed: 02/17/18 08:47> Constitutional Denies chills, Denies fever(s), Reports headache(s), Reports malaise and Reports weakness Eyes Denies eye discharge and Denies eye pain ENT Denies otalgia, Denies facial pain, Reports headache(s) and Denies neck pain Cardiovascular Denies chest pain, Denies syncope, Denies leg edema and Denies dyspnea Respiratory Denies cough and Denies dyspnea Gastrointestinal Denies abdominal pain, Denies diarrhea, Denies nausea and Denies vomiting Genitourinary Denies dysuria and Denies flank pain Musculoskeletal Denies back pain, Denies neck pain and Denies numbness Integumentary/Breasts Denies wounds Neurologic Denies syncope, Reports headache(s), Denies focal weakness, Denies numbness and Reports weakness Exam <Delano Zamorano MD - Last Filed: 02/17/18 08:47> Const General: cooperative and comfortable Nutritional Appearance: obese morbidly obese Orientation: alert, oriented to person and oriented to place [facility] Head: normocephalic and atraumatic Mouth: moist mucous membranes Neck Neck: full ROM, trachea midline and supple Chest Chest: normal palpation of entire chest wall Resp Effort & Inspection: normal respiratory effort Auscultation: clear to auscultation bilaterally Cardio Rate: regular rate Rhythm: regular rhythm Heart Sounds: S1 normal and S2 normal GI Palpation: soft, not firm and nontender Back/Spine/Pelvis Cervical Spine: cervical ROM normal and No cervical spinal tenderness Thoracic/Lumbar Spine: thoraco-lumbar ROM normal, No thoracic spinal tenderness and No lumbar spinal tenderness Skin Trauma: no lacerations or abrasions Neuro General: alert, oriented Patient Orientation: Person and Place, moves all extremities, no focal motor deficits and CN's II-XI intact bilaterally Motor: tremor Extrem Right upper extremity: normal to inspection and full ROM Left upper extremity: normal to inspection and full ROM Right lower extremity: hip/thigh Details: abnormal ROM Details: pain with passive ROM during Details: to extension, to flexion, to internal rotation and to external rotation; no tenderness Left lower extremity: normal to inspection and full ROM Course <Delano Zamorano MD - Last Filed: 02/17/18 08:47> Vital Signs Temperature 98.1 F 02/17/18 05:13 Pulse 95 H 02/17/18 05:13 Respiratory Rate 18 02/17/18 05:13 Blood Pressure 131/72 02/17/18 05:13 Pulse Oximetry 96 02/17/18 05:13 Temperature 98.1 F 02/17/18 05:13 Temperature Source Temporal Artery Scan 02/17/18 05:13 Pulse 95 H 02/17/18 05:13 Respiratory Rate 18 02/17/18 05:13 Respiratory Effort 02/17/18 05:13 Blood Pressure 131/72 02/17/18 05:13 Pulse Oximetry 96 02/17/18 05:13 Oxygen Delivery Method Room Air 02/17/18 05:13 Oxygen Flow Rate 0 02/17/18 05:13 Pain Level 5 02/17/18 05:23 Lab/Test Results Lab/Test Results: Laboratory Tests Range/Units 02/17/18 02/17/18 05:15 05:15 WBC (4.4-10.8) k/cumm 7.73 RBC (4.00-5.20) m/cumm 4.58 Hgb (12.0-15.5) g/dL 14.2 Hct (36.0-46.0) % 41.8 MCV (80-95) fL 91.3 MCH (27.0-33.0) pg 31.0 MCHC (32.0-36.0) g/dL 34.0 RDW (11.7-14.6) % 12.5 Plt Count (130-400) x1000/uL 209 MPV (8.0-11.0) fL 11.2 H Immature Gran % 0.1 Neutrophils % 77.8 Lymphocytes % 15.9 Monocytes % 4.3 Eosinophils % 1.6 Basophils % 0.3 Absolute Neutrophils (1.2-6.7) k/cumm 6.02 Absolute Lymphocytes (1.2-3.4) k/cumm 1.23 Absolute Monocytes (0.11-0.7) k/cumm 0.33 Absolute Eosinophils (0.0-0.7) k/cumm 0.12 Absolute Basophils (0.0-0.2) k/cumm 0.02 Sodium (136-145) mmol/L 138 Potassium (3.5-5.1) mmol/L 4.1 Chloride (98-107) mmol/L 101 Carbon Dioxide (21.0-32.0) mmol/L 28.1 Anion Gap (3-11) mmol/L 8.9 BUN (7-18) mg/dL 12 Creatinine (0.55-1.02) mg/dL 0.84 Estimated GFR/1.73 m2 (mL/min/1.73m2) >= 60.00 Glucose (70-100) mg/dL 215 H Calcium (8.5-10.1) mg/dL 8.7 Total Bilirubin (0.2-1.0) mg/dL 0.5 AST (15-37) U/L 22 ALT (12-78) U/L 29 Alkaline Phosphatase (46-116) U/L 118 H Creatine Kinase (26-192) U/L 110 Troponin I (0.00-0.06) ng/mL < 0.02 Total Protein (6.4-8.2) g/dL 7.6 Albumin (3.4-5.0) g/dL 3.4 Sign Out <Delano Zamorano MD - Last Filed: 02/17/18 08:47> Sign Out Data: Sign Out Comment: pending U/A and CT hip and re-eval Last updated by Delano Zamorano MD at 02/17/18 07:15 Post-Handoff Eval: pt's labs and imaging including CT shows no acute findings. The patient is not sure of year but knows name and place which nurse taking care of her who took care of her last week states is her baseline. The patient is walking with a walker at her baseline with only mild right hip discomfort so doubt fx at this time. Will discuss with her sister on appropriate placement of her (home vs assisted living vs
[2018-02-17 07:21] LABS: Bacteria Negative HPF (Negative); C & S Indicated? No; Casts Negative LPF (Negative); Crystals Negative HPF (Negative); Epithelial Cells Negative HPF (Negative); Mucus Negative (Negative); RBC 0-2 (0-2); WBC Negative HPF (0-5)
[2018-02-17] MEDS: Normal Saline 1,000 ML 150 ML IV (07:54)
--- NOTE | 2018-02-17 08:13 | DI.VRAD_ITS ---
EXAM: CT Pelvis Without Intravenous Contrast, Skeletal EXAM DATE/TIME: 02/17/2018 7:08 AM CLINICAL HISTORY: 72 years old, female; Pain; Other: RT hip pain with negative x-ray; Additional info: Extend scan to involve RT hip/prox femur TECHNIQUE: Axial computed tomography images of the pelvis without intravenous contrast. Exam focused on the skeletal structures. All CT scans at this facility use at least one of these dose optimization techniques: automated exposure control; mA and/or kV adjustment per patient size (includes targeted exams where dose is matched to clinical indication); or iterative reconstruction. Coronal and sagittal reformatted images were created and reviewed. COMPARISON: CT ABD PELVIS WITH CONTRAST 11/04/2017 12:16 PM FINDINGS: Bones/joints: Mild osteoarthritis Soft tissues: Unremarkable. IMPRESSION: No acute findings Dictated and Authenticated by: Brooks Guevara MD. Ordering:ROSALINA BRAND MD
--- NOTE | 2018-02-17 08:33 | NUR.NOTE ---
Nursing Note: Walked to [facility] unassisted with walker--c/o mild hip pain.
--- NOTE | 2018-02-17 16:59 | PDOC.ERCMPRO ---
- If Service Date Differs Date of service: 02/17/18 Time of Service: 16:59 Care Management Progress Note CM met with Philomena and her sister in the room after request from ED provider. Philomena has had several ED visits over the past two weeks. Philomena reports she fell out of her chair last evening and was down on the floor for several hours. She reports she was scared and could not get help. She has a life line but has lost her button a few weeks ago. Philomena feels that she has declined enough that she may need assisted living. She currently resides at the [facility], her sister is her main support. She has choices for care moderate needs however this only includes a homemaker once every two weeks. Her director of community center is Lizbeth Navarrete. CM attempted to contact Lizbeth and left a voicemail. CM did review services with sports coordinator at [facility]. Philomena does receive treatment through [facility] for med management however she has no other developmental services per her report from the agency.Philomena's sister has been trying to manage her medications and sets them out in a pill box. Philomena is unsure of what medication she should be on and is receiving medications from both primary care and [facility]. CM has reviewed support services with Pt and sister including blistering medications through her pharmacy [facility], increase services under her medicaid benefit which include medication management through home health services. [facility] which is adult day through her medicaid benefit and local assisted living facilities. CM reviewed benefits with the patient and offered referral to local SNF agencies. Philomena would like a referral to the [facility] in [place], with the possibility of transitioning to assisted living after her skilled stay.Philomena's apartment at the [facility] is stable and sister has paid her rent. CM contacted Daxa at the [facility] and submitted the referral. [facility] offered a bed, Philomena accepted her sister will transport to the facility. Philomena has a cpap at home which her sister will bring to the [facility] with clothing and accessories that she needs for SNF. CM will fax notes to [facility], CM and primary care for follow up and assistance with transition home with supports upon discharge from facility. CM provided patient and sister with contact information for questions or concerns after discharge from the ED. KENIA Li, RN-ACM Pager [phone]
--- NOTE | 2018-02-17 17:12 | CMPROGNOTE_ITS ---
- If Service Date Differs Date of service: 02/17/18 Time of Service: 16:59 Care Management Progress Note CM met with Philomena and her sister in the room after request from ED provider. Philomena has had several ED visits over the past two weeks. Philomena reports she fell out of her chair last evening and was down on the floor for several hours. She reports she was scared and could not get help. She has a life line but has lost her button a few weeks ago. Philomena feels that she has declined enough that she may need assisted living. She currently resides at the [facility], her sister is her main support. She has choices for care moderate needs however this only includes a homemaker once every two weeks. Her community health outreach worker is Lizbeth Navrarete. CM attempted to contact Lizbeth and left a voicemail. CM did review services with background check coordinator at [facility]. Philomena does receive treatment through [facility] for med management however she has no other developmental services per her report from the agency.Philomena's sister has been trying to manage her medications and sets them out in a pill box. Philomena is unsure of what medication she should be on and is receiving medications from both primary care and [facility]. CM has reviewed support services with Pt and sister including blistering medications through her pharmacy [facility], increase services under her medicaid benefit which include medication management through home health services. [facility] which is adult day through her medicaid benefit and local assisted living facilities. CM reviewed benefits with the patient and offered referral to local SNF agencies. Philomena would like a referral to the [facility] in [place], with the possibility of transitioning to assisted living after her skilled stay.[facility] and sister has paid her rent. CM contacted Daxa at the [facility] and submitted the referral. [facility] offered a bed, Philomena accepted her sister will transport to the facility. Philomena has a cpap at home which her sister will bring to the [facility] with clothing and accessories that she needs for SNF. CM will fax notes to [facility], CM and primary care for follow up and assistance with transition home with supports upon discharge from facility. CM provided patient and sister with contact information for questions or concerns after discharge from the ED. KENIA Li, RN-ACM Pager [phone]
== END 2018-02-17 12:24 | disposition skilled nursing facility (03) ==
PROVIDERS: Emergency Medicine; Emergency Provider Emergency Medicine; PCP Family Medicine
DX: S70.01XA Contusion of right hip, initial encounter (principal); W07.XXXA Fall from chair, initial encounter; R41.0 Disorientation, unspecified; G24.01 Drug induced subacute dyskinesia; E11.9 Type 2 diabetes mellitus without complications; Z79.4 Long term (current) use of insulin; I10 Essential (primary) hypertension
CPT/HCPCS: 36415; 80053; 82550; 93005; 96360; 96361; 99285; 70450; 71045; 72125; 72192; 73502; 81003; 81015; 84484; 85025; 93010; 99284

== ENCOUNTER 2018-02-22 11:39 | Outpatient (REF) | payer MEDICARE, MEDICAID, SELFPAY ==
[2018-02-22 13:05] LABS: Hemoglobin A1C 8.4 % (4.5-6.2)
== END 2018-02-22 11:59 ==
LOC: LBN 11:39
PROVIDERS: PCP Family Medicine; Visit Provider Family Medicine
DX: E11.40 Type 2 diabetes mellitus with diabetic neuropathy, unspecified (principal)
CPT/HCPCS: 83036

== ENCOUNTER 2018-04-11 15:15 | Outpatient (REF) | payer MEDICARE, MEDICAID, SELFPAY ==
--- NOTE | 2018-04-11 14:00 | PAPFT_PTH ---
PATIENT: Philomena Adames LOC: [facility] U#:[id number] AGE/SX: 72/F ROOM: RE04/11/[address]: Leti Franz : 1945 BED: DIS: 04/11/2018 SPEC #: [id number] RECD: 04/12/18 12:57 STATUS: DAMON REQ #: [id number] KAREN: 04/11/18 14:[address]: Leti Franz DEPT: [facility] Cytology RECD BY: Sachi Chopra Tissues: 1 - CX/ENDOCX FOR PAP SMEARS Procedures: PAP THIN PREP/UVM Screening HPV DNA PROBE Comments: [id number]
[2018-04-13 09:47] LABS: IgA 547 mg/dL (85-499)
[2018-04-13 19:58] LABS: Tissue Transglutaminase Ab IgA <1.2 U/mL
== END 2018-04-11 15:35 ==
LOC: NCHCN 15:15
PROVIDERS: PCP Family Medicine; Visit Provider Family Medicine
DX: R19.7 Diarrhea, unspecified (principal); Z12.4 Encounter for screening for malignant neoplasm of cervix; Z11.51 Encounter for screening for human papillomavirus (HPV)
CPT/HCPCS: 82784; 88142; 83516; 87624

== ENCOUNTER 2018-04-15 11:58 | Outpatient (REF) | payer MEDICARE, MEDICAID, SELFPAY ==
[2018-04-16 13:37] LABS: Campylobacter PCR SEE COMMENTS; Salmonella PCR SEE COMMENTS; Shiga Toxin PCR SEE COMMENTS; Shigella/Enteroinvasive Ecoli SEE COMMENTS
== END 2018-04-15 12:18 ==
LOC: NCHCN 11:58
PROVIDERS: PCP Family Medicine; Visit Provider Family Medicine
DX: R19.7 Diarrhea, unspecified (principal)
CPT/HCPCS: 87329; 87505; 83630

== ENCOUNTER 2018-05-16 15:15 | Outpatient (REF) | payer MEDICARE, MEDICAID, SELFPAY ==
[2018-05-16 18:59] LABS: Bilirubin Negative (Negative); Blood Negative (Negative); Clarity Clear; Glucose Negative (Negative); Ketones Negative (Negative); Leukocyte Esterase Small (Negative); Nitrite Negative (Negative); Specific Gravity 1.015 (1.005-1.025); Urobilinogen 0.2 EU/dL (Up TO 0.2)
[2018-05-16 19:40] LABS: Bacteria Rare HPF (Negative); Epithelial Cells Rare HPF (Negative); Other Cells Few Renal (Negative); RBC Negative (0-2)
[2018-05-16 19:41] LABS: C & S Indicated? Yes; Casts Negative LPF (Negative); Mucus Negative (Negative)
== END 2018-05-16 15:35 ==
LOC: NCHCN 15:15
PROVIDERS: PCP Family Medicine; Visit Provider Family Medicine
DX: R35.0 Frequency of micturition (principal); R32 Unspecified urinary incontinence
CPT/HCPCS: 81003; 81015; 87086

== ENCOUNTER 2018-05-18 17:53 | Emergency (ER) | payer MEDICARE, MEDICAID, SELFPAY ==
[2018-05-18 17:58] VITALS: BP 144/61; PULSE 94; RESP 18; O2SAT 97
[2018-05-18 18:08] VITALS: TEMP 36.5
--- NOTE | 2018-05-18 18:28 | DI.RAD_ITS ---
SYMPTOM/DIAGNOSIS: COUGH, WHEEZING FRONTAL AND LATERAL CHEST: Comparison is made with 02/17/18. The heart size is within normal limits as is the pulmonary vasculature. There are prominent interstitial markings bilaterally which appear stable and likely reflect chronic disease. No focal consolidating infiltrates, effusions or pneumothoraces are identified. There are increased lung markings seen in the posterior aspect of the lung on the lateral view which may be due to low lung volumes. Infiltrate cannot be excluded. The spine appears stable. IMPRESSION: 1. Increased lung markings seen on the lateral view posteriorly. This may be due to low lung volumes and crowding of pulmonary vasculature but the possibility of a developing infiltrate cannot be excluded. Please correlate clinically.
[2018-05-18 18:54] LABS: Abs Immature Grans 0.01 k/cumm (0.0-0.09); Absolute Basophil Count 0.02 k/cumm (0.0-0.2); Absolute Eosinophil Count 0.19 k/cumm (0.0-0.7); Absolute Lymphocyte Count 2.76 k/cumm (1.2-3.4); Absolute Monocyte Count 1.12 k/cumm (0.11-0.7); Absolute Neutrophil Count 7.64 k/cumm (1.2-6.7); Basophils % 0.2; Eosinophils % 1.6; HCT 41.9 % (36.0-46.0); HGB 14.1 g/dL (12.0-15.5); Immature Grans % 0.1; Lymphocytes % 23.5; Mean Corp. HGB Concentration 33.7 g/dL (32.0-36.0); Mean Corpuscular Hemoglobin 30.8 pg (27.0-33.0); Mean Corpuscular Volume 91.5 fL (80-95); Mean Platelet Volume 11.1 fL (8.0-11.0); Monocytes % 9.5; Neutrophils % 65.1; Platelet Count 178 x1000/uL (130-400); RBC 4.58 m/cumm (4.00-5.20); RBC Distribution Width 12.7 % (11.7-14.6); White Blood Cell Count 11.74 k/cumm (4.4-10.8)
[2018-05-18 19:08] LABS: ALT 15 U/L (12-78); AST 12 U/L (15-37); Albumin 3.3 g/dL (3.4-5.0); Alkaline Phosphatase 120 U/L (46-116); Anion Gap 6.1 mmol/L (3-11); BUN 10 mg/dL (7-18); Bilirubin, Total 0.6 mg/dL (0.2-1.0); CO2 30.9 mmol/L (21.0-32.0); CREATININE 0.85 mg/dL (0.55-1.02); Calcium 8.9 mg/dL (8.5-10.1); Chloride 101 mmol/L (98-107); Glucose 147 mg/dL (70-100); Magnesium 1.7 mg/dL (1.8-2.4); Potassium 3.7 mmol/L (3.5-5.1); Sodium 138 mmol/L (136-145); Total Protein 7.7 g/dL (6.4-8.2)
[2018-05-18] MEDS: Albuterol/Ipratropium 3 ML UPD VIAL UPD (19:08)
[2018-05-18] MEDS: Normal Saline 1,000 ML 150 ML IV (19:08)
[2018-05-18 19:09] LABS: Troponin I < 0.02 ng/mL (0.00-0.06)
[2018-05-18 19:16] LABS: Bilirubin Negative (Negative); Blood Trace-intact (Negative); Clarity Clear; Glucose Negative (Negative); Ketones Trace mg/dL (Negative); Leukocyte Esterase Negative (Negative); Nitrite Negative (Negative); Specific Gravity >= 1.030 (1.005-1.025); pH 5.5 (5-8)
--- NOTE | 2018-05-18 19:20 | ED.GENADUL_ITS ---
Discharge Plan Disposition Patient Disposition: HOME Condition: Good Discharge Details Chief Complaint: GenMedical Clinical Impression: CAP (community acquired pneumonia) Primary Care Provider: Leti Franz ED Provider: Delano Zamorano [place] Meds and New Rx's Prescriptions: New levofloxacin 750 mg tablet 750 mg PO DAILY Qty: 6 RF: 0 Continued clonazepam 0.5 mg tablet 1.5 mg PO HS Qty: 90 RF: 2 simvastatin [Zocor] 10 MG tablet 20 mg PO HS RF: 0 FreeStyle Test 1 EACH strip 1 ea Miscellaneous DAILY RF: 0 escitalopram oxalate 20 MG tablet 30 mg PO DAILY RF: 0 Basaglar KwikPen U-100 Insulin 100 unit/mL (3 mL) insulin pen 60 unit subcut DAILY RF: 0 levothyroxine 112 MCG tablet 112 mcg PO DAILY RF: 0 Dexilant 30 mg Capsule,Biphase Delayed Releas 30 mg PO DAILY RF: 0 Vraylar 1.5 mg Capsule 1.5 mg PO DAILY RF: 0 Ingrezza 80 mg Capsule 80 mg PO DAILY RF: 0 propranolol 60 MG capsule,extended release 24 hr 60 mg PO DAILY RF: 0 Changed albuterol sulfate [Ventolin HFA] 200 PUFF HFA aerosol inhaler 2 puff Inhalation Q4H PRNQty: 1 RF: 0 Discharge Instructions Instructions: Community Acquired Pneumonia (ED) Additional Instructions: Your laboratory blood work looks fine. Your chest x-ray suggest a possible pneumonia. Given your cough and decline in status will treat with antibiotics. You will need to take the next dose tomorrow night. We will treat you for 1 week. Follow-up with primary care next week. You had some wheezing tonight and we will re-prescribe an inhaler to use every 4-6 hours as needed for cough and wheezing. Be sure to stay hydrated. Return to ED if worsening weakness, confusion, difficulty breathing Referrals: Leti Franz MD [Primary Care Provider] - Medical Decision Making Patient with generalized weakness and decline in ability to care for self. She does have a cough and she is wheezing throughout at this time. Pulse ox is little low. She does not appear to be in distress. She has no focal neurologic findings. Her rash is chronic. I would be more concerned for metabolic/infectious process than a stroke or psychiatric problem which is what family was concerned about. IV is established and fluids started. Straight cath urine ordered. Chest x-ray ordered. DuoNeb ordered. Laboratory studies obtained. Patient's laboratory studies are unremarkable. Her white count is minimally elevated to 11.7. Hematocrit is normal. Chemistries are normal. Troponin is negative. Straight cath urine is negative. Flu swab is negative. Chest x-ray looks like a retrocardiac infiltrate to me. Radiology suggests possible developing airspace disease posterior lungs. Given her general decline in her cough I would presume pneumonia. She has not been in a half-way since February. She has not been hospitalized recently. She has not been on antibiotics recently. We will treat her as community-acquired pneumonia. On exam treatment showed essentially no wheezing with some rhonchi in the left base. Both her CURB 65 as well as her PSI are low mortality. She should be able to be managed as an outpatient. We will start her on Levaquin with first dose tonight. We will treat for 1 week and have her follow-up with primary care next week. Lab Data Lab results reviewed: Yes I reviewed the patient's lab results. ECG Data Attestation: I personally reviewed and interpreted this ECG (s) as follows: Prior ECG tracings: available for review Interpretation: Sinus rhythm at 77. A lot of artifact due to tremor. Normal axis and intervals. Does not appear to have any acute ST changes. HPI General Mode of arrival: ambulatory . Date/Time Provider Initiated Documentation: 05/18/18 18:28 . Limitations to Documentation: other (dementia) . Information obtained by: patient and family . HPI Narrative: Patient is brought in for evaluation of generalized weakness and decline in ability to care for self. She was fine on Wednesday. Over the last few days she has had general decline and needs help with ADLs and feeding. She is having extreme difficulty walking because of weakness. She is coughing. There is been no fever that anyone is aware of. She does not feel short of breath. She has had no vomiting. She denies having chest pain or belly pain. She does report posterior type headache on and off. There have been no falls or trauma. She has a chronic rash which is been present since summer and is unchanged. Related Data Home Medications Medication Instructions Recorded Confirmed simvastatin [Zocor] 20 mg PO HS tab-cap 11/28/13 05/18/18 FreeStyle Test strip 06/04/16 05/18/18 escitalopram oxalate 30 mg PO DAILY tab-cap 05/06/17 05/18/18 propranolol 60 mg PO DAILY 06/30/17 05/18/18 levothyroxine 112 mcg PO DAILY 11/04/17 05/18/18 insulin glargine (U-100) 100 60 unit SUBCUT DAILY ml 12/13/17 05/18/18 unit/mL (3 mL) subcutaneous pen clonazepam 0.5 mg tablet 1.5 mg PO HS #90 tab 03/28/18 05/18/18 Dexilant 30 mg PO DAILY 05/18/18 05/18/18 Ingrezza 80 mg PO DAILY 05/18/18 05/18/18 Vraylar 1.5 mg PO DAILY 05/18/18 05/18/18 albuterol sulfate [Ventolin HFA] 2 puff INHALATION Q4H PRN #1 inh 05/18/18 levofloxacin 750 mg PO DAILY #6 tab 05/18/18 Previous Rx's Medication Instructions Recorded clonazepam 0.5 mg tablet 1.5 mg PO HS #90 tab 03/28/18 albuterol sulfate [Ventolin HFA] 2 puff INHALATION Q4H PRN #1 inh 05/18/18 levofloxacin 750 mg PO DAILY #6 tab 05/18/18 Allergies Allergy/AdvReac Type Severity Reaction Status Date / Time codeine Allergy Severe Unverified 05/18/18 18:02 Penicillins Allergy Severe Unverified 05/18/18 18:02 bupropion Allergy Intermediate Unverified 05/18/18 18:02 tetrabenazine Allergy Intermediate Skin Rash Unverified 05/18/18 18:02 lisinopril Allergy Mild Unverified 05/18/18 18:02 oxybutynin chloride Allergy Unverified 05/18/18 18:02 [From Ditropan] General Stated Complaint: GenMedical VIRGIE: 3 Review of Systems Constitutional Denies fever(s), Reports headache(s), Reports malaise and Reports weakness Eyes Denies change in vision and Denies eye pain ENT Denies dizziness, Denies otalgia, Reports headache(s), Denies nasal congestion, Denies nasal discharge, Denies neck pain, Denies post nasal drip and Denies sore throat Cardiovascular Denies chest pain, Denies diaphoresis, Denies syncope, Denies edema and Denies dyspnea Respiratory Reports cough and Denies dyspnea Gastrointestinal Denies abdominal pain, Denies nausea and Denies vomiting Genitourinary Denies dysuria, Denies pelvic pain and Denies flank pain Musculoskeletal Denies back pain, Denies myalgias, Denies arthralgias, Denies neck pain and Denies numbness Integumentary/Breasts Reports rash Neurologic Denies dizziness, Denies syncope, Reports headache(s), Denies focal weakness, Denies numbness and Reports weakness [facility] Social History housing: assisted living facility number of children: 8 current occupational status: disabled Smoking and Tabacco status: Never alcohol intake: never substance use type: does not use additional social history: She attends [employer] 3x per week. Exam Const General: cooperative and no acute distress Nutritional Appearance: obese Orientation: alert and oriented x3 HENMT Head: normocephalic and atraumatic Mouth: oropharynx normal and moist mucous membranes Throat: uvula midline Eyes Pupils: PERRL EOM: EOM intact bilaterally Neck Neck: normal visual inspection, trachea midline and supple Resp Effort & Inspection: normal respiratory effort Auscultation: lung sounds not diminished and wheezes Cardio Rate: regular rate Rhythm: regular rhythm Heart Sounds: S1 normal and S2 normal GI Inspection: non-distended Palpation: soft and nontender Skin Rashes: rashes noted (generalized macular scaly rash) Neuro General: alert, oriented x3, no focal motor deficits, CN's II-XI intact bilaterally and not confused Sensory Exam: no sensory deficits noted Extrem General: no calf tenderness, no cyanosis and pedal edema Course Vital Signs Pulse 94 H 05/18/18 17:58 Respiratory Rate 18 05/18/18 17:58 Blood Pressure 144/61 H 05/18/18 17:58 Pulse Oximetry 97 05/18/18 17:58 Temperature 97.7 F 05/18/18 18:08 Temperature Source Skin 05/18/18 18:08 Pulse 94 H 05/18/18 17:58 Respiratory Rate 18 05/18/18 17:58 Blood Pressure 144/61 H 05/18/18 17:58 Pulse Oximetry 97 05/18/18 17:58 Oxygen Delivery Method Room Air 05/18/18 17:58 Oxygen Flow Rate 0 05/18/18 17:58 Pain Level 8 05/18/18 17:58 Lab/Test Results Lab/Test Results: 05/18/18 18:41 Nasopharynx Influenza Types A,B Antigen - Final Laboratory Tests Range/Units 05/18/18 05/18/18 18:30 18:30 WBC (4.4-10.8) k/cumm 11.74 H RBC (4.00-5.20) m/cumm 4.58 Hgb (12.0-15.5) g/dL 14.1 Hct (36.0-46.0) % 41.9 MCV (80-95) fL 91.5 MCH (27.0-33.0) pg 30.8 MCHC (32.0-36.0) g/dL 33.7 RDW (11.7-14.6) % 12.7 Plt Count (130-400) x1000/uL 178 MPV (8.0-11.0) fL 11.1 H Immature Gran % 0.1 Neutrophils % 65.1 Lymphocytes % 23.5 Monocytes % 9.5 Eosinophils % 1.6 Basophils % 0.2 Absolute Neutrophils (1.2-6.7) k/cumm 7.64 H Absolute Lymphocytes (1.2-3.4) k/cumm 2.76 Absolute Monocytes (0.11-0.7) k/cumm 1.12 H Absolute Eosinophils (0.0-0.7) k/cumm 0.19 Absolute Basophils (0.0-0.2) k/cumm 0.02 Sodium (136-145) mmol/L 138 Potassium (3.5-5.1) mmol/L 3.7 Chloride (98-107) mmol/L 101 Carbon Dioxide (21.0-32.0) mmol/L 30.9 Anion Gap (3-11) mmol/L 6.1 BUN (7-18) mg/dL 10 Creatinine (0.55-1.02) mg/dL 0.85 Estimated GFR/1.73 m2 (mL/min/1.73m2) >= 60.00 Glucose (70-100) mg/dL 147 H Calcium (8.5-10.1) mg/dL 8.9 Magnesium (1.8-2.4) mg/dL 1.7 L Total Bilirubin (0.2-1.0) mg/dL 0.6 AST (15-37) U/L 12 L ALT (12-78) U/L 15 Alkaline Phosphatase (46-116) U/L 120 H Troponin I (0.00-0.06) ng/mL < 0.02 Total Protein (6.4-8.2) g/dL 7.7 Albumin (3.4-5.0) g/dL 3.3 L
[2018-05-18 19:27] LABS: Bacteria Negative HPF (Negative); C & S Indicated? No; Casts Negative LPF (Negative); Crystals Negative HPF (Negative); Epithelial Cells Negative HPF (Negative); Mucus Negative (Negative); Other Cells Negative (Negative); WBC 0-2 HPF (0-5)
--- NOTE | 2018-05-18 20:01 | DI.VRAD_ITS ---
EXAM: XR Chest, 2 Views EXAM DATE/TIME: 05/18/2018 6:30 PM CLINICAL HISTORY: 72 years old, female; Signs and symptoms; Cough; Smoker's cough; Additional info: Patient unable to hold breath. TECHNIQUE: XR of the chest, 2 views. COMPARISON: [place] XR CHEST 1V IN DI DEPT 02/17/2018 6:17 AM FINDINGS: Lungs: Essentially stable chronic interstitial prominence and segmental bronchial wall thickening, most likely related to chronic bronchitis/chronic interstitial disease. There is some airspace haziness in the basal posterior lung sumner, best seen on the lateral view, which is felt to represent crowding of structures due to low lung volumes. Developing airspace disease should be entertained in the appropriate clinical setting. No other large airspace consolidations are seen. Pleural space: Unremarkable. No pleural effusion. No pneumothorax. Heart/Mediastinum: Stable cardiomediastinal silhouette. Bones/joints: Chronic multilevel right rib fractures are again noted. No acute skeletal abnormality. IMPRESSION: Stable chronic lung changes with concern for possible developing airspace disease in the posterior lung sumner versus crowding of structures due to low lung volumes. Dictated and Authenticated by: Gokul Barajas MD. Ordering:ROSALINA Wick MD
[2018-05-18] MEDS: LEVOFLOXACIN 500 MG, LEVOFLOXACIN 250 MG 750 MG PO (20:48)
[2018-05-18 21:12] VITALS: BP 144/61; PULSE 94; RESP 17; RESP 18; TEMP 36.5; O2SAT 97
== END 2018-05-18 21:05 | disposition home or self-care (01) ==
PROVIDERS: Emergency Provider Emergency Medicine; PCP Family Medicine
DX: J18.9 Pneumonia, unspecified organism (principal)
CPT/HCPCS: 36415; 51701; 80053; 87449; 94640; 96360; 96361; 99285; 71046; 81003; 81015; 83735; 84484; 85025; J7620

== ENCOUNTER 2018-05-24 00:49 | Outpatient (CLI) | payer MEDICARE, MEDICAID, SELFPAY ==
--- NOTE | 2018-05-24 11:23 | DI.MRI_ITS ---
SYMPTOMS/DIAGNOSIS: ALTERED MENTAL STATUS, HEADACHE, R41.82, R51 MRI OF THE BRAIN: Routine noncontrast examination was performed. Comparison CT scan is 02/17/18. There is prominence of the ventricles and sulci consistent with the patient's age. The diffusion weighted images show no evidence of an acute infarct. The gradient images show no evidence of intracranial hemorrhage. No intracranial mass, acute midline shift or mass effect is identified. The ventricles are intact. The basilar cisterns are patent. There is a flow void present in the [place]. The pituitary gland appears grossly unremarkable. The visualized paranasal sinuses are clear. IMPRESSION: Age related cerebral atrophy. No evidence of an acute infarct, hemorrhage or mass.
== END 2018-05-24 01:09 ==
PROVIDERS: PCP Family Medicine; Visit Provider Family Medicine
DX: R41.82 Altered mental status, unspecified (principal); R51 Headache; G31.1 Senile degeneration of brain, not elsewhere classified
CPT/HCPCS: 70551

== ENCOUNTER 2018-06-02 00:30 | Outpatient (CLI) | payer MEDICARE, MEDICAID, SELFPAY ==
--- NOTE | 2018-06-02 10:35 | MERGE_ITS ---
*[facility]* *[facility]* [address] [place] [address] Date of study: 06/02/2018 Transthoracic Echocardiography M-mode, complete 2D, complete spectral Doppler, and color Doppler *STUDY CONCLUSIONS* Summary: 1. Left ventricle: The cavity size was normal. Wall thickness was at the upper limits of normal. Systolic function was normal. The estimated ejection fraction was 60-65%. Wall motion was normal; there were no regional wall motion abnormalities. 2. Right ventricle: The cavity size was at the upper limits of normal. Wall thickness was normal. Systolic function was normal. 3. Pulmonary arteries: Pulmonary systolic pressure was mildly increased. PA peak pressure: 36mm Hg (S). *PATIENT PRESENTATION* Height: 162.6cm ((64in) ) S/D Pressure: 140 / 82 Weight: 98kg ((215.5lb) ) BSA: 2.15m^2 Test start time: 10:50 AM. Test stop time: 11:35 AM. ORDERING Leti Franz REFERRING Leti Franz PERFORMING Unknown PERFORMING [facility] TRADER FIXED INCOME RT Colleen De Leon)GERI)MEERA *PROCEDURE DATA* Procedure information: This study was interpreted by [facility]. Pertinent images and digital data are archived for permanent storage and are available for subsequent review. Comparison was made to the study of 03/29/2014. Study status: Routine. Transthoracic echocardiography. M-mode, complete 2D, complete spectral Doppler, and color Doppler. A Transthoracic Echocardiogram was performed. Scanning was performed from the parasternal, apical, subcostal, and suprasternal notch acoustic windows. Images were obtained using an [id number] cardiac ultrasound machine. Image quality was fair. The study was technically limited due to poor patient compliance, patient inability to follow directions, and restricted patient mobility. Study completion: The patient tolerated the procedure well. History: PMH: Diastolic HF 150.30 g, ARMAND, cpap removed due to non [id number]. Hypoxemia, cough, Significant decline in function last week or two. Coughing more especially at night. Hypoxemia with minimal ambulation. *CARDIAC ANATOMY* Left ventricle: The cavity size was normal. Wall thickness was at the upper limits of normal. Systolic function was normal. The estimated ejection fraction was 60-65%. Wall motion was normal; there were no regional wall motion abnormalities. Aortic valve: Trileaflet; mildly thickened leaflets. Mobility was not restricted. Doppler: Transvalvular velocity was within the normal range. There was no stenosis. There was no significant regurgitation. VTI ratio of LVOT to aortic valve: 0.84. Valve area (VTI): 2.8cm^2. Indexed valve area (VTI): 1.3cm^2/m^2. Peak velocity ratio of LVOT to aortic valve: 0.86. Valve area (Vmax): 2.8cm^2. Indexed valve area (Vmax): 1.3cm^2/m^2. Mean velocity ratio of LVOT to aortic valve: 0.79. Valve area (Vmean): 2.6cm^2. Indexed valve area (Vmean): 1.2cm^2/m^2. Mean gradient (S): 3.3mm Hg. Peak gradient (S): 5.9mm Hg. Aorta: Aortic root: The aortic root was normal in size. Ascending aorta: The ascending aorta was normal in size. Aortic arch: The aortic arch was normal in size. Mitral valve: Mildly thickened leaflets. Mobility was not restricted. Doppler: Transvalvular velocity was within the normal range. There was no evidence for stenosis. There was trivial regurgitation. Valve area by pressure half-time: 3.7cm^2. Indexed valve area by pressure half-time: 1.7cm^2/m^2. Left atrium: The atrium was normal in size. Right ventricle: The cavity size was at the upper limits of normal. Wall thickness was normal. Systolic function was normal. Pulmonic valve: Doppler: Transvalvular velocity was within the normal range. There was no evidence for stenosis. There was trivial regurgitation. Peak gradient (S): 3.3mm Hg. Tricuspid valve: Structurally normal valve. Doppler: Transvalvular velocity was within the normal range. There was no evidence for stenosis. There was mild regurgitation. Pulmonary artery: Pulmonary systolic pressure was mildly increased. Right atrium: The atrium was normal in size. Pericardium: There was no pericardial effusion. Systemic veins: Inferior vena cava: Well visualized. The vessel was patent and small, appearing collapsed, consistent with low central venous pressure. The respirophasic diameter changes were in the normal range (greater than or equal to 50%). Baseline ECG: Normal sinus rhythm. Measurements Left ventricle Value Reference LV ID, ED, PLAX 4.2 cm 3.5 - 6.0 LV ID, ES, PLAX 2.5 cm 2.1 - 4.0 LV PW thickness, ED, PLAX 1.0 cm --------- LV end-diastolic volume, 1-p A2C 54 ml --------- LV ejection fraction, 1-p A2C 61 % --------- LV end-diastolic volume, 1-p A4C 55 ml --------- LV ejection fraction, 1-p A4C 61 % --------- LV e', lateral 0.118 m/sec --------- LV E/e', lateral 5 --------- LV e', medial 0.057 m/sec --------- LV E/e', medial 11 --------- LV e', average 0.087 m/sec --------- LV E/e', average 7 --------- Ventricular septum Value Reference IVS thickness, ED, PLAX 1.1 cm --------- LVOT Value Reference LVOT ID, A-P 2.0 cm --------- LVOT area 3.3 cm^2 --------- LVOT peak velocity, S 1.05 m/sec --------- LVOT mean velocity, S 0.69 m/sec --------- LVOT VTI, S 23.6 cm --------- LVOT peak gradient, S 4.4 mm Hg --------- LVOT mean gradient, S 2.3 mm Hg --------- Stroke volume (SV), LVOT DP 77 ml --------- Stroke index (SV/bsa), LVOT DP 36 ml/m^2 --------- Aortic valve Value Reference Aortic valve peak velocity, S 1.2 m/sec --------- Aortic valve mean velocity, S 0.87 m/sec --------- Aortic valve VTI, S 28.0 cm --------- Aortic mean gradient, S 3.3 mm Hg --------- Aortic peak gradient, S 5.9 mm Hg --------- VTI ratio, LVOT/AV 0.84 --------- Aortic valve area, VTI 2.8 cm^2 --------- Velocity ratio, peak, LVOT/AV 0.86 --------- Aortic valve area, peak velocity 2.8 cm^2 --------- Velocity ratio, mean, LVOT/AV 0.79 --------- Aortic valve area, mean velocity 2.6 cm^2 --------- Aortic valve area/bsa, mean velocity 1.2 cm^2/m^2 --------- Aorta Value Reference Aortic root ID, ED 3.3 cm --------- Ascending aorta ID, A-P, S 3.3 cm --------- Aortic arch ID, innominate-LCCA 3.0 cm 2.0 - 3.6 Left atrium Value Reference LA ID, A-P, ES 3.4 cm --------- LA ID/bsa, A-P 1.6 cm/m^2 <=2.2 LA area, ES, A2C 16 cm^2 --------- LA volume/bsa, ES, 1-p A4C 32 ml/m^2 --------- LA/aortic root ratio 1.03 --------- Mitral valve Value Reference Mitral E-wave peak velocity 0.63 m/sec --------- Mitral A-wave peak velocity 0.91 m/sec --------- Mitral deceleration time 203 ms 150 - 230 Mitral pressure half-time 59 ms --------- Mitral E/A ratio, peak 0.69 --------- Mitral valve area, PHT, DP 3.7 cm^2 --------- Pulmonary arteries Value Reference PA pressure, S, DP (H) 36 mm Hg <=30 Tricuspid valve Value Reference Tricuspid regurg peak velocity 2.9 m/sec --------- Tricuspid peak RV-RA gradient 34.1 mm Hg --------- Systemic veins Value Reference Estimated CVP 5 mm Hg --------- Right ventricle Value Reference RV pressure, S, DP (H) 39 mm Hg <=30 Pulmonic valve Value Reference Pulmonic peak gradient, S 3.3 mm Hg --------- Legend: (L) and (H) akshat values outside specified reference range. I have personally reviewed the images and have reviewed and edited the reported findings. Electronically signed by Mustapha Lamar 06/02/2018 18:19
== END 2018-06-02 00:50 ==
PROVIDERS: PCP Family Medicine; Visit Provider Family Medicine
DX: I50.30 Unspecified diastolic (congestive) heart failure (principal); I10 Essential (primary) hypertension
CPT/HCPCS: 93306

== ENCOUNTER 2018-06-09 13:23 | Inpatient (IN) | payer MEDICARE, MEDICAID, SELFPAY ==
[2018-06-09] VITALS (43 sets, daily range): BP systolic 92–242; BP diastolic 41–226; PULSE 59–227; RESP 13–24; TEMP 35.4–36.8; O2SAT 87–96
--- NOTE | 2018-06-09 14:08 | W.ED.GENAD ---
Discharge Plan Discharge Details Chief Complaint: GenMedical Admit Date/Time: 06/09/18 16:06 Admit Provider: Maryse Jewell Attending Provider: Maryse Jewell Primary Care Provider: Leti Franz ED Provider: Lauri Willis Discharge Data Discharge Date/Time-TO BE ENTERED AT DEPARTURE: 06/09/18 17:53 Medical Decision Making 14:10 --72-year-old female with multiple medical problems including history of cognitive deficit, tardive dyskinesia, DM, here with recent decline over the past 1 mo - increased fatigue, generalized weakness, unastable on feet, freg falls, decreased appetitite. Patient is failling to thrive. Patient also with left-sided facial droop the daughter has not noted in the past. Patient has had mulitple recent choking spells. She has had cough and was seen here in the ED on 05/18/18 and diagnosed with PNA. She completed course of antibiotic. I obtained and reviewed OSH records: Brain MRI 05/24/18 interpretation by radiology: IMPRESSION: Age related cerebral atrophy. No evidence of an acute infarct, hemorrhage or mass. Cardiac echocardiogram 06/02/18 interpretation by cardiology: 1. Left ventricle: The cavity size was normal. Wall thickness was at the upper limits of normal. Systolic function was normal. The estimated ejection fraction was 60-65%. Wall motion was normal; there were no regional wall motion abnormalities. 2. Right ventricle: The cavity size was at the upper limits of normal. Wall thickness was normal. Systolic function was normal. 3. Pulmonary arteries: Pulmonary systolic pressure was mildly increased. PA peak pressure: 36mm Hg (S). I obtained cxr interpretation by radiology: IMPRESSION: 1. Increased lung markings seen on the lateral view posteriorly. This may be due to low lung volumes and crowding of pulmonary vasculature but the possibility of a developing infiltrate cannot be excluded. Please correlate clinically. Consider CVA. Unclear onset. Plan to CT head. --ECG reviewed and interpreted by me: significant artifact is present from tremor. Suspect sinus rhythm 70 bpm, QRS duration 102, nondiagnostic. cxr interpreted by radiology: LLL PNA. Plan to treat azithromycin IV. Patient has swelling with PCN. Plan to admit. 16:00 -- Spoke with Dr. Jewell. Plan to admit. HPI General Mode of arrival: ambulatory. Date/Time Provider Initiated Documentation: 06/09/18 13:49. Limitations to Documentation: no limitations. Information obtained by: patient and family. HPI Narrative: 72-year-old female with multiple medical problems including history of cognitive deficit, tardive dyskinesia, DM, here with caregiver who notes recent decline over the past 1 mo. She states increased fatigue, generalized weakness, unastable on feet, freguent falls, decreased appetite. Patient has had mulitple recent choking spells. Recent medication changes including starting new antipsychotic vraylar. No spasm or stiffness. No fever. Recently seen and treated for PNA. Still with cough. History and review of systems limited secondary to altered mental status. Related Data Home Medications Medication Instructions Recorded Confirmed FreeStyle Test strip 06/04/16 05/18/18 levothyroxine 112 mcg PO DAILY 11/04/17 06/09/18 insulin glargine (U-100) 100 60 unit SUBCUT QAM ml 12/13/17 06/09/18 unit/mL (3 mL) subcutaneous pen Ingrezza 80 mg PO DAILY 05/18/18 06/09/18 Vraylar 1.5 mg PO DAILY 05/18/18 06/09/18 albuterol sulfate [Ventolin HFA] 2 puff INHALATION Q4H PRN #1 inh 05/18/18 06/09/18 aspirin 81 mg tablet 81 mg PO DAILY 05/25/18 06/09/18 escitalopram 20 mg tablet 30 mg PO DAILY tab-cap 05/25/18 06/09/18 multivitamin tablet 1 tab PO DAILY 05/25/18 06/09/18 propranolol ER 60 mg capsule,24 60 mg PO DAILY 05/25/18 06/09/18 hr,extended release cariprazine [Vraylar] 1.5 mg PO DAILY 06/09/18 06/09/18 clonazepam 0.25 mg PO PRN PRN 06/09/18 06/09/18 clonazepam 0.5 mg PO HS 06/09/18 06/09/18 dexlansoprazole [Dexilant] 30 mg PO BID 06/09/18 06/09/18 simvastatin [Zocor] 20 mg PO HS 06/09/18 06/09/18 triamcinolone acetonide 1 applic TOPICAL DAILY 06/09/18 06/09/18 Previous Rx's Medication Instructions Recorded albuterol sulfate [Ventolin HFA] 2 puff INHALATION Q4H PRN #1 inh 05/18/18 Allergies Allergy/AdvReac Type Severity Reaction Status Date / Time codeine Allergy Severe Unverified 06/09/18 13:38 Penicillins Allergy Severe Unverified 06/09/18 13:38 bupropion Allergy Intermediate Unverified 06/09/18 13:38 tetrabenazine Allergy Intermediate Skin Rash Unverified 06/09/18 13:38 lisinopril Allergy Mild Unverified 06/09/18 13:38 oxybutynin chloride Allergy Unverified 06/09/18 13:38 [From Ditropan] General Stated Complaint: GenMedical VIRGIE: 3 Review of Systems Constitutional Reports as per HPI ENT Reports as per HPI Cardiovascular Denies chest pain, Denies syncope and Denies dyspnea Respiratory Denies dyspnea Gastrointestinal Denies vomiting Genitourinary Denies dysuria Integumentary/Breasts Denies rash Neurologic Denies syncope PFSH Medical History Developmental delay, borderline (Chronic) Migraine headache without aura (Chronic) Osteoporosis (Chronic) Depression with anxiety (Chronic) Chronic low back pain (Chronic) Osteoarthritis (Chronic) Hypothyroidism (Chronic) Arias's esophagus (Chronic) GERD (gastroesophageal reflux disease) (Chronic) Obstructive sleep apnea on CPAP (Chronic) Type 2 diabetes mellitus (Chronic) Hyperlipidemia (Chronic) Hypertension (Chronic) Urgency incontinence (Chronic 05/01/15) Tardive dyskinesia (Chronic 01/26/17) 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) Sensorineural hearing loss, bilateral (Chronic 01/07/15) Dysphagia, unspecified (Chronic 06/22/16) Surgical History H/O bilateral cataract extraction (Acute) H/O umbilical hernia repair (Acute) History of hysterectomy with bilateral oophorectomy (Acute) S/P cholecystectomy (Acute) H/O tubal ligation (Chronic) Family History Father Tremor Brother Tremor Sister Tremor Mother Heart disease Hypertension Sister Breast cancer Sister Stomach cancer Social History Smoking/Tobacco Use Status: Never Alcohol Intake: never Drug use: Never Substance use type: does not use Housing: assisted living facility Number of Children: 8 Do you feel safe in your relationship?: Yes Additional Social history: She attends [employer] 3x per week. Exam Const General: comfortable, no acute distress and well developed Orientation: alert and awake HENMT Head: normocephalic and atraumatic Mouth: moist mucous membranes Eyes Conjunctivae: normal conjunctivae Sclera: normal sclerae EOM: EOM intact bilaterally Neck Neck: trachea midline and supple Resp Effort & Inspection: cough and no respiratory distress Auscultation: clear to auscultation bilaterally, no rales, rhonchi and no wheezes Cardio Jugular venous pressure: no JVD Rate: regular rate and not tachycardic Rhythm: regular rhythm GI Palpation: soft, not firm, no guarding, no masses, not rigid and nontender Skin General skin exam: no rashes or lesions noted Neuro General: alert, awake, tone normal and other (no rigidity) Cranial Nerves: other (left facial droop) Cognition: abnormal cognition Speech: speech normal Motor: strength 5/5 throughout Sensory Exam: no sensory deficits noted Extrem General: no edema Psych Affect: other (flat) Attitude: cooperative Course Vital Signs Temperature 36.2 C L 06/09/18 13:34 Pulse 65 06/09/18 13:34 Respiratory Rate 16 06/09/18 13:34 Blood Pressure 112/59 L 06/09/18 13:34 Pulse Oximetry 96 06/09/18 13:34 Temperature 36.2 C L 06/09/18 13:34 Temperature Source Skin 06/09/18 13:34 Pulse 65 06/09/18 13:34 Respiratory Rate 16 06/09/18 13:34 Respiratory Effort Non-Labored 06/09/18 13:34 Blood Pressure 112/59 L 06/09/18 13:34 Blood Pressure Position Sitting 06/09/18 13:34 Pulse Oximetry 96 06/09/18 13:34 Oxygen Delivery Method Room Air 06/09/18 13:34 Oxygen Flow Rate 0 06/09/18 13:34 Pain Level 0 06/09/18 13:34
--- NOTE | 2018-06-09 14:16 | ED.GENADUL_ITS ---
Discharge Plan Discharge Details Chief Complaint: GenMedical Admit Date/Time: 06/09/18 16:06 Admit Provider: Maryse Jewell Attending Provider: Maryse Jewell Primary Care Provider: Leti Franz ED Provider: Lauri Willis Discharge Data Discharge Date/Time-TO BE ENTERED AT DEPARTURE: 06/09/18 17:53 Medical Decision Making 14:10 --72-year-old female with multiple medical problems including history of cognitive deficit, tardive dyskinesia, DM, here with recent decline over the pa st 1 mo - increased fatigue, generalized weakness, unastable on feet, freg falls, decreased appetitite. Patient is failling to thrive. Patient also with left-sided facial droop the daughter has not noted in the past. Patient has had mulitple recent choking spells. She has had cough and was seen here in the ED on 05/18/18 and diagnosed with PNA. She completed course of antibiotic. I obtained and reviewed OSH records: * Brain MRI 05/24/18 interpretation by radiology: IMPRESSION: Age related cerebral atrophy. No evidence of an acute infarct, hemorrhage or mass. * Cardiac echocardiogram 06/02/18 interpretation by cardiology: 1. Left ventricle: The cavity size was normal. Wall thickness was at the upper limits of normal. Systolic function was normal. The estimated ejection fraction was 60-65%. Wall motion was normal; there were no regional wall motion abnormalities. 2. Right ventricle: The cavity size was at the upper limits of normal. Wall thickness was normal. Systolic function was normal. 3. Pulmonary arteries: Pulmonary systolic pressure was mildly increased. PA peak pressure: 36mm Hg (S). I obtained cxr interpretation by radiology: IMPRESSION: 1. Increased lung markings seen on the lateral view posteriorly. This may be due to low lung volumes and crowding of pulmonary vasculature but the possibility of a deve loping infiltrate cannot be excluded. Please correlate clinically. Consider CVA. Unclear onset. Plan to CT head. --ECG reviewed and interpreted by me: significant artifact is present from tremor. Suspect sinus rhythm 70 bpm, QRS duration 102, nondiagnostic. cxr interpreted by radiology: LLL PNA. Plan to treat azithromycin IV. Patient has swelling with PCN. Plan to admit. 16:00 -- Spoke with Dr. Jewell. Plan to admit. HPI General Mode of arrival: ambulatory . Date/Time Provider Initiated Documentation: 06/09/18 13:49 . Limitations to Documentation: no limitations . Information obtained by: patient and family . HPI Narrative: 72-year-old female with multiple medical problems including history of cognitive deficit, tardive dyskinesia, DM, here with caregiver who notes recent decline over the past 1 mo. She states increased fatigue, generalized weakness, unastable on feet, freguent falls, decreased appetite. Patient has had mulitple recent choking spells. Recent medication changes including starting new antipsychotic vraylar. No spasm or stiffness. No fever. Recently seen and treated for PNA. Still with cough. History and review of systems limited secondary to altered mental status. Related Data Home Medications Medication Instructions Recorded Confirmed FreeStyle Test strip 06/04/16 05/18/18 levothyroxine 112 mcg PO DAILY 11/04/17 06/09/18 insulin glargine (U-100) 100 60 unit SUBCUT QAM ml 12/13/17 06/09/18 unit/mL (3 mL) subcutaneous pen Ingrezza 80 mg PO DAILY 05/18/18 06/09/18 Vraylar 1.5 mg PO DAILY 05/18/18 06/09/18 albuterol sulfate [Ventolin HFA] 2 puff INHALATION Q4H PRN #1 inh 05/18/18 06/09/18 aspirin 81 mg tablet 81 mg PO DAILY 05/25/18 06/09/18 escitalopram 20 mg tablet 30 mg PO DAILY tab-cap 05/25/18 06/09/18 multivitamin tablet 1 tab PO DAILY 05/25/18 06/09/18 propranolol ER 60 mg capsule,24 60 mg PO DAILY 05/25/18 06/09/18 hr,extended release cariprazine [Vraylar] 1.5 mg PO DAILY 06/09/18 06/09/18 clonazepam 0.25 mg PO PRN PRN 06/09/18 06/09/18 clonazepam 0.5 mg PO HS 06/09/18 06/09/18 dexlansoprazole [Dexilant] 30 mg PO BID 06/09/18 06/09/18 simvastatin [Zocor] 20 mg PO HS 06/09/18 06/09/18 triamcinolone acetonide 1 applic TOPICAL DAILY 06/09/18 06/09/18 Previous Rx's Medication Instructions Recorded albuterol sulfate [Ventolin HFA] 2 puff INHALATION Q4H PRN #1 inh 05/18/18 Allergies Allergy/AdvReac Type Severity Reaction Status Date / Time codeine Allergy Severe Unverified 06/09/18 13:38 Penicillins Allergy Severe Unverified 06/09/18 13:38 bupropion Allergy Intermediate Unverified 06/09/18 13:38 tetrabenazine Allergy Intermediate Skin Rash Unverified 06/09/18 13:38 lisinopril Allergy Mild Unverified 06/09/18 13:38 oxybutynin chloride Allergy Unverified 06/09/18 13:38 [From Ditropan] General Stated Complaint: GenMedical VIRGIE: 3 Review of Systems Constitutional Reports as per HPI ENT Reports as per HPI Cardiovascular Denies chest pain, Denies syncope and Denies dyspnea Respiratory Denies dyspnea Gastrointestinal Denies vomiting Genitourinary Denies dysuria Integumentary/Breasts Denies rash Neurologic Denies syncope [facility] Medical History Developmental delay, borderline (Chronic) Migraine headache without aura (Chronic) Osteoporosis (Chronic) Depression with anxiety (Chronic) Chronic low back pain (Chronic) Osteoarthritis (Chronic) Hypothyroidism (Chronic) Arias's esophagus (Chronic) GERD (gastroesophageal reflux disease) (Chronic) Obstructive sleep apnea on CPAP (Chronic) Type 2 diabetes mellitus (Chronic) Hyperlipidemia (Chronic) Hypertension (Chronic) Urgency incontinence (Chronic 05/01/15) Tardive dyskinesia (Chronic 01/26/17) 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) Sensorineural hearing loss, bilateral (Chronic 01/07/15) Dysphagia, unspecified (Chronic 06/22/16) Surgical History H/O bilateral cataract extraction (Acute) H/O umbilical hernia repair (Acute) History of hysterectomy with bilateral oophorectomy (Acute) S/P cholecystectomy (Acute) H/O tubal ligation (Chronic) Family History Father Tremor Brother Tremor Sister Tremor Mother Heart disease Hypertension Sister Breast cancer Sister Stomach cancer Social History Smoking/Tobacco Use Status: Never Alcohol Intake: never Drug use: Never Substance use type: does not use Housing: assisted living facility Number of Children: 8 Do you feel safe in your relationship?: Yes Additional Social history: She attends [employer] 3x per week. Exam Const General: comfortable, no acute distress and well developed Orientation: alert and awake HENMT Head: normocephalic and atraumatic Mouth: moist mucous membranes Eyes Conjunctivae: normal conjunctivae Sclera: normal sclerae EOM: EOM intact bilaterally Neck Neck: trachea midline and supple Resp Effort & Inspection: cough and no respiratory distress Auscultation: clear to auscultation bilaterally, no rales, rhonchi and no wheezes Cardio Jugular venous pressure: no JVD Rate: regular rate and not tachycardic Rhythm: regular rhythm GI Palpation: soft, not firm, no guarding, no masses, not rigid and nontender Skin General skin exam: no rashes or lesions noted Neuro General: alert, awake, tone normal and other (no rigidity) Cranial Nerves: other (left facial droop) Cognition: abnormal cognition Speech: speech normal Motor: strength 5/5 throughout Sensory Exam: no sensory deficits noted Extrem General: no edema Psych Affect: other (flat) Attitude: cooperative Course Vital Signs Temperature 36.2 C L 06/09/18 13:34 Pulse 65 06/09/18 13:34 Respiratory Rate 16 06/09/18 13:34 Blood Pressure 112/59 L 06/09/18 13:34 Pulse Oximetry 96 06/09/18 13:34 Temperature 36.2 C L 06/09/18 13:34 Temperature Source Skin 06/09/18 13:34 Pulse 65 06/09/18 13:34 Respiratory Rate 16 06/09/18 13:34 Respiratory Effort Non-Labored 06/09/18 13:34 Blood Pressure 112/59 L 06/09/18 13:34 Blood Pressure Position Sitting 06/09/18 13:34 Pulse Oximetry 96 06/09/18 13:34 Oxygen Delivery Method Room Air 06/09/18 13:34 Oxygen Flow Rate 0 06/09/18 13:34 Pain Level 0 06/09/18 13:34
[2018-06-09 14:30] LABS: HCT 43.4 % (36.0-46.0); HGB 14.4 g/dL (12.0-15.5); Mean Corp. HGB Concentration 33.2 g/dL (32.0-36.0); Mean Corpuscular Hemoglobin 30.7 pg (27.0-33.0); Mean Corpuscular Volume 92.5 fL (80-95); Mean Platelet Volume 10.7 fL (8.0-11.0); Platelet Count 179 x1000/uL (130-400); RBC 4.69 m/cumm (4.00-5.20); RBC Distribution Width 12.9 % (11.7-14.6); White Blood Cell Count 4.91 k/cumm (4.4-10.8)
[2018-06-09 14:50] LABS: Magnesium 1.9 mg/dL (1.8-2.4); TSH (W/Ref FT4) 0.84 uIU/mL (0.358-3.74)
[2018-06-09 14:52] LABS: Absolute Neutrophil Count 1.67 k/cumm (1.2-6.7); Calcium 9.2 mg/dL (8.5-10.1); Glucose 88 mg/dL (70-100)
[2018-06-09 14:53] LABS: ALT 21 U/L (12-78); AST 27 U/L (15-37); Albumin 3.4 g/dL (3.4-5.0); Alkaline Phosphatase 84 U/L (46-116); Anion Gap 7.8 mmol/L (3-11); BUN 11 mg/dL (7-18); Bilirubin, Total 0.6 mg/dL (0.2-1.0); CO2 30.2 mmol/L (21.0-32.0); CREATININE 0.89 mg/dL (0.55-1.02); Chloride 103 mmol/L (98-107); Potassium 3.9 mmol/L (3.5-5.1); Sodium 141 mmol/L (136-145); Total Protein 7.6 g/dL (6.4-8.2); Troponin I < 0.02 ng/mL (0.00-0.06)
[2018-06-09 14:54] LABS: Bilirubin Negative (Negative); Blood Negative (Negative); Clarity Clear; Glucose Negative (Negative); Ketones Negative (Negative); Leukocyte Esterase Negative (Negative); Nitrite Negative (Negative); Specific Gravity 1.015 (1.005-1.025); Urobilinogen 0.2 EU/dL (Up TO 0.2)
[2018-06-09 14:56] LABS: Absolute Eosinophil Count 0.25 k/cumm (0.0-0.7); Absolute Monocyte Count 0.39 k/cumm (0.11-0.7); Diff Comment Manual Differential
[2018-06-09 14:57] LABS: RBC Morphology Normal
--- NOTE | 2018-06-09 15:08 | DI.CT_ITS ---
SYMPTOMS/DIAGNOSIS: ALTERED MENTATION, LEFT FACIAL DROOP CRANIAL CT: A noncontrast enhanced examination was performed. Moderately severe atrophic changes are demonstrated. There is no evidence of an intra/extra-axial hemorrhage, mass or fluid collection. There are small regions of diminished absorption in the frontoparietal white matter bilaterally consistent with small vessel disease and incidental note is made of small calcifications in the basal ganglia. There is no evidence of a skull fracture. Mild inflammatory changes involving the maxillary antra are demonstrated. There are minimal inflammatory changes involving the ethmoids. The frontal and sphenoid sinus are normal. There is no evidence of a mastoid effusion. SUMMARY: Atrophic changes and evidence of small vessel disease. No acute intracranial abnormality is demonstrated.
--- NOTE | 2018-06-09 15:32 | DI.RAD_ITS ---
SYMPTOMS/DIAGNOSIS: COUGH CHEST: Frontal and lateral views. Comparison is 05/18/18. There is poor inspiration. The heart size and pulmonary vasculature are within normal limits. The bilateral interstitial infiltrates seen on the examination from 05/18/18 appear grossly unchanged. No new infiltrates, effusions or pneumothoraces are identified. The bones appear stable. No acute osseous abnormality is identified. IMPRESSION: Stable interstitial disease since 05/18/18. Differential considerations include chronic interstitial disease, atelectasis, scarring or pneumonia. Please correlation clinically.
[2018-06-09] MEDS: Acetaminophen Solution 650 MG/20.3 ML CUP PO (16:02)
[2018-06-09] MEDS: AZITHROMYCIN 500 MG in Normal Saline 250 ML 250 MG IVPB (16:04)
--- NOTE | 2018-06-09 16:40 | DI.VRAD_ITS ---
EXAM: XR Chest, 2 Views EXAM DATE/TIME: 06/09/2018 3:33 PM CLINICAL HISTORY: 72 years old, female; Signs and symptoms; Other: Cough TECHNIQUE: Imaging protocol: XR of the chest, 2 views. COMPARISON: SC XR CHEST 2V PA LATERAL 05/18/2018 7:17 PM. 02/17/2018. FINDINGS: Lungs: There are streaky opacities along the left heart border and within the left retrocardiac region which could represent atelectasis or infection. More superiorly, there are interstitial markings which can be seen with edema. Pleural space: Unremarkable. No pleural effusion. No pneumothorax. Heart/Mediastinum: The mediastinum appears widened, similar to prior examination. Cardiac shadow is unchanged. Bones/joints: Skeletal degenerative changes. Old right-sided rib fractures are seen. A compression fracture of a lower thoracic vertebral body is noted on the lateral radiograph, unchanged. Old right-sided rib fractures remain seen. IMPRESSION: 1. There are streaky opacities along the left heart border and within the left retrocardiac region which could represent atelectasis or infection. More superiorly, there are interstitial markings which can be seen with edema. Other findings as above. Dictated and Authenticated by: Josy Vidal MD. Ordering:CONNOR Carreon MD
[2018-06-09 18:23] LABS: Creatine Kinase 39 U/L (26-192)
--- NOTE | 2018-06-09 19:10 | HPE_ITS ---
Date of service: 06/09/18 Time of Service: 19:05 Assessment and Plan (1) CAP (community acquired pneumonia): Current visit: Yes Status: Acute I am concerned this could be aspiration pneumonia, but we will cover atypicals as well. Given PCN allergy and prior outpatient failure of levofloxacin, as well as QT prolonging agents on board, we will trial doxycycline/aztreonam/flagyl. We will also consult speech therapy for dysphagia. (2) Tardive dyskinesia: Current visit: No Status: Chronic Hold vraylar. Continue Ingrezza. Would benefit from neuro/psychiatric consults when available. PT/Ot. (3) Dysphagia, unspecified: Current visit: No Status: Chronic partially likely due to Tardive dyskinesia. Speech therapy consult (4) Type 2 diabetes mellitus: Current visit: No Status: Chronic Will half long-acting insulin as sister reports Poor PO. Cover with SSI. (5) Hypertension: Current visit: No Status: Chronic Monitor (6) Hyperlipidemia: Current visit: No Status: Chronic Continue home statin (7) Ambulatory dysfunction: Current visit: Yes Status: Acute PT/OT consults (8) Schizophrenia: Current visit: Yes Status: Chronic Hold vraylar (9) Bipolar disorder: Current visit: Yes Status: Chronic Could the current episode of weakness/depression be a part of decompensated BiPolar d/o? Will consult psychiatry. 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 I think it would be difficult to obtain an MRI for this patient while she is so tremulous, but we can watch her on telemetry and obtain a carotid doppler study as well as an echo. (11) DVT prophylaxis: Current visit: Yes Status: Acute Lovenox (12) Discharge planning issues: Current visit: Yes Status: Acute DNR/DNi, as per sister who is verbalizing the patient's wishes in their prior discussion. Sister is interested in meeting with the palliative care team to fill out a COLST form. History of Present Illness Chief Complaint: Weakness, sent in from mental health clinic Narrative: Ms Adames is a 72 year old female with PMHx of Bipolar 1 disorder, schizophrenia, psychosis, dyskinesia, among other multiple other medical problems, who was sent in today from the mental health clinic because there was a suspicion that the patient might be having a side effect of one of the medications she was on. The patient's sister is the history provider. She states that the patient was initiated on a new antipsychotic medication, vraylar 1.5 mg PO daily, about one and a half months ago. Ever since then her tremors of tardive dyskinesia got drastically worse, to the point that the patient needs assistance with all of her ADLs whereas she used to be relatively independent and use a cane and sometimes a walker. She became even weaker ever since she had pneumonia diagnosed in our ED on 05/18, at which point she was given levofloxacin. The patient's sister thinks it didn't help her very much. The patient seems to have difficulty with swallowing thin liquids now. She can't hold her cup. Her speech has been sometimes uninterpretable to her sister. For the last 2 days, her appetite and PO intake have been very poor. She has not had any hypoglycemic epi sodes, per sister. Additionally, sister states the patient has complained of depression and has been sleeping most of the day. The ED provider Dr Willis felt she might also have a L-sided facial droop. The patient's sister was not sure if she has noticed one. I am not entirely sure I see it. The patient states she does not have any pain, does feel a little short of breath, and has had a nonproductive cough. Her ER workup revealed a LLL pneumonia. She was treated with azithromycin in the ED due to her penicillin allergy and outpatient failure of levofloxacin. We were asked to admit the patient for further evaluation and care. Review of Systems Review of Systems 12 systems reviewed. Pertinent positives and negatives are as per [facility] Social History Smoking/Tobacco Use Status: Never Alcohol Intake: never Drug use: Never Substance use type: does not use Housing: assisted living facility Number of Children: 8 Do you feel safe in your relationship?: Yes Additional Social history: She attends [place] 3x per week. Meds Home Medications Medication Instructions Recorded Confirmed Type FreeStyle Test strip 06/04/16 05/18/18 History levothyroxine 112 mcg PO DAILY 11/04/17 06/09/18 History insulin glargine (U-100) 100 60 unit SUBCUT QAM ml 12/13/17 06/09/18 History unit/mL (3 mL) subcutaneous pen Ingrezza 80 mg PO DAILY 05/18/18 06/09/18 History Vraylar 1.5 mg PO DAILY 05/18/18 06/09/18 History albuterol sulfate [Ventolin HFA] 2 puff INHALATION Q4H PRN #1 inh 05/18/18 06/09/18 Rx aspirin 81 mg tablet 81 mg PO DAILY 05/25/18 06/09/18 History escitalopram 20 mg tablet 30 mg PO DAILY tab-cap 05/25/18 06/09/18 History multivitamin tablet 1 tab PO DAILY 05/25/18 06/09/18 History propranolol ER 60 mg capsule,24 60 mg PO DAILY 05/25/18 06/09/18 History hr,extended release cariprazine [Vraylar] 1.5 mg PO DAILY 06/09/18 06/09/18 History clonazepam 0.25 mg PO PRN PRN 06/09/18 06/09/18 History clonazepam 0.5 mg PO HS 06/09/18 06/09/18 History dexlansoprazole [Dexilant] 30 mg PO BID 06/09/18 06/09/18 History simvastatin [Zocor] 20 mg PO HS 06/09/18 06/09/18 History triamcinolone acetonide 1 applic TOPICAL DAILY 06/09/18 06/09/18 History Allergies Allergy/AdvReac Type Severity Reaction Status Date / Time codeine Allergy Severe Unverified 06/09/18 13:38 Penicillins Allergy Severe Unverified 06/09/18 13:38 bupropion Allergy Intermediate Unverified 06/09/18 13:38 tetrabenazine Allergy Intermediate Skin Rash Unverified 06/09/18 13:38 lisinopril Allergy Mild Unverified 06/09/18 13:38 oxybutynin chloride Allergy Unverified 06/09/18 13:38 [From Ditropan] Exam Narrative Exam Narrative: General: Very pleasant elderly female, difficulty with providing history, laying flat in bed, not in acute distress. Neurological: A&Ox2, responses are mostly one word. Appears to be able to move all 4 extremities. I am not certain I appreciate the left-sided facial droop. Very pronounced tremors of tardive dyskinesia Psychiatric: Calm, cooperative; appropriate affect with me Skin: dry skin patches LUE. Otherwise, intact HEENT: Atraumatic, normocephalic, EOMI, Dry MM, edentuous, no submandibular or cervical lymphadenopathy, no goiter, or JVD Cardiovascular: RRR, no m/r/g Lungs: Rhonchi on expiration B Gastrointestinal: abdomen is soft, nontender, nondistended Extremities: no e/c/c BLE's Results Labs : 06/09/18 14:15 06/09/18 14:15 Laboratory Results - last 24 hr 06/09/18 06/09/18 06/09/18 14:15 14:15 14:15 WBC 4.91 RBC 4.69 Hgb 14.4 Hct 43.4 MCV 92.5 MCH 30.7 MCHC 33.2 RDW 12.9 Plt Count 179 MPV 10.7 Immature Gran % 0.0 Neutrophils % 34.0 Lymphocytes % 53.0 Monocytes % 8.0 Eosinophils % 5.0 Basophils % 0.0 Absolute Neutrophils 1.67 Absolute Lymphocytes 2.60 Absolute Monocytes 0.39 Absolute Eosinophils 0.25 Absolute Basophils 0.00 Differential Comment Manual differential RBC Morphology Normal Sodium 141 Potassium 3.9 Chloride 103 Carbon Dioxide 30.2 Anion Gap 7.8 BUN 11 Creatinine 0.89 Estimated GFR/1.73 m2 >= 60.00 Glucose 88 Calcium 9.2 Magnesium 1.9 Total Bilirubin 0.6 AST 27 ALT 21 Alkaline Phosphatase 84 Creatine Kinase 39 Troponin I < 0.02 Total Protein 7.6 Albumin 3.4 TSH 0.84 Urine Color Urine Clarity Urine pH Ur Specific [place] Urine Protein Urine Ketones Urine Blood Urine Nitrite Urine Bilirubin Urine Urobilinogen Ur Leukocyte Esterase Urine Glucose 06/09/18 14:45 WBC RBC Hgb Hct MCV MCH MCHC RDW Plt Count MPV Immature Gran % Neutrophils % Lymphocytes % Monocytes % Eosinophils % Basophils % Absolute Neutrophils Absolute Lymphocytes Absolute Monocytes Absolute Eosinophils Absolute Basophils Differential Comment RBC Morphology Sodium Potassium Chloride Carbon Dioxide Anion Gap BUN Creatinine Estimated GFR/1.73 m2 Glucose Calcium Magnesium Total Bilirubin AST ALT Alkaline Phosphatase Creatine Kinase Troponin I Total Protein Albumin TSH Urine Color Yellow Urine Clarity Clear Urine pH 6.0 Ur Specific [place] 1.015 Urine Protein Negative Urine Ketones Negative Urine Blood Negative Urine Nitrite Negative Urine Bilirubin Negative Urine Urobilinogen 0.2 Ur Leukocyte Esterase Negative Urine Glucose Negative Last Vital Signs Temp 36.5 C 06/09/18 17:50 Pulse 71 06/09/18 18:35 Resp 16 06/09/18 17:50 BP 112/59 L 06/09/18 17:50 Pulse Ox 90 L 06/09/18 17:50
[2018-06-09] MEDS: metroNIDAZOLE 500 MG/100 ML BAG 100 MG IVPB (19:22)
[2018-06-09] MEDS: Normal Saline 1,000 ML 150 ML IV (20:00)
[2018-06-09] MEDS: AZTREONAM 2,000 MG in Normal Saline 100 ML 200 MG IVPB (20:56)
[2018-06-09] MEDS: Dexlansoprazole 30 MG CAP PO (21:37)
[2018-06-09] MEDS: DOXYCYCLINE 100 MG in Normal Saline 100 ML IVPB (21:37)
[2018-06-09] MEDS: clonazePAM 0.5 MG TAB PO (21:44)
[2018-06-09] MEDS: Simvastatin 20 MG TAB PO (21:44)
[2018-06-10] VITALS (11 sets, daily range): BP systolic 86–190; BP diastolic 52–71; PULSE 57–76; RESP 16–21; TEMP 36–36.6; O2SAT 93–96
[2018-06-10] MEDS: metroNIDAZOLE 500 MG/100 ML BAG 100 MG IVPB ×3 (01:40→17:18)
[2018-06-10] MEDS: AZTREONAM 2,000 MG in Normal Saline 100 ML 200 MG IVPB ×3 (03:44→20:26)
[2018-06-10] MEDS: Normal Saline 1,000 ML 150 ML IV ×2 (06:27→16:41)
--- NOTE | 2018-06-10 07:54 | PDOC.CMIN ---
- If Service Date Differs Date of service: 06/10/18 Time of Service: 07:55 Care Management Initial Assess REASON FOR HOSPITALIZATION:: Community Acquired pneumonia, urinary retention, possible CVA PAST MEDICAL HISTORY/PAST SURGICAL HISTORY:: Past Medical History: Daniel's esophagus, Chronic low back pain, Depression with anxiety,. Development delay, borderline, Dysphagia, GERD, Hyperlipidemia, Hypertension, Hypothyroidism, Migraine headache without aura, Obstructive sleep apnea on CPAP, Osteoarthritis, osteoporosis, Sensorineural hearing loss, bilateral, Tardive akathisia, Tardive dyskinesia, Type 2 diabetes mellitus, Urgency incontinence. Surgical History: H/O bilateral cataract extraction, H/O tubal ligation, H/O umbilical hernia repair, H/O hysterectomy with bilateral oopherectomy, s/p cholecystectomy PREVIOUS FUNCTIONAL STATUS/SOCIAL/FAMILY SUPPORTS:: Noemi lives with her sister Chantal and her family in a 4 bedroom mobile home in [facility]. Besides Chantal, there is Chantal's , a 10 year old daughter and a 14 month old daughter, newly adopted, living in the home. Chantal states that Philomena's health has deteriorated in the past few weeks and that she requires total care. Chantal bathes and feeds Philomena and assists with all of her ADLs. She states that the shaking and tremors have significantly increased and are contributing to the deterioration in functioning.Philomena has 2 daughters but they are not involved in her care, per Philomena's request. CURRENT FUNCTIONAL STATUS:: Philomena is awake and alert but is not very conversant with CM. Most information obtained from sister Chantal who is her HCA and POA. COLST form completed by Dr. Oneill this morning. Philomena requires maximum assist with ADLs. She is able to ambulate with a rolling walker and assist of 1. Both Philomena and Chantal want her to return home at discharge. She has been receiving HH services including nursing, OT and PT on Tuesdays and and goes to [facility] on Wednesday, Wednesday and Wednesday. ADVANCE DIRECTIVES:: COLST form on chart Has patient been provided with information about the portal?: No (Not interested) Did the patient sign up for the portal?: No CODE STATUS:: DNR/DNI INSURANCE COVERAGE / FINANCIAL ISSUES:: Medicare and Medicaid CURRENT HOME/COMMUNITY SERVICES/EQUIPMENT:: Receives HH care with nursing, OT and PT on and and attends [facility] on Wednesday, Wednesday and Wednesday. She uses a walker and a chair in the tub to shower. PRIMARY CARE PHYSICIAN:: Leti Franz MD POTENTIAL DISCHARGE NEEDS:: Follow up appointment with PCP. Philomena may need to go to an inpatient Patt-psych unit for medication management for a short time after discharge. Both Philomena and Chantal want Philomena to return home. PATIENT/FAMILY EDUCATION NEEDS:: Discharge education, limitations, follow-up plan of care, Ask Me Three and disposition. ANTICIPATED BARRIERS TO DISCHARGE:: Philomena will need to have her medications well managed before return to home. TRANSPORTATION:: via private auto with family PLAN:: Philomena is currently receiving IV antibiotics for her pneumonia. She does not require supplemental oxygen at this time. Philomena may need a short stay at an inpatient psychiatris facility for medication management at discharge and then transition back to her sister's home. She will need to resume HH services and Adult Day Care.
--- NOTE | 2018-06-10 08:02 | INITIAL_ITS ---
- If Service Date Differs Date of service: 06/10/18 Time of Service: 07:55 Care Management Initial Assess REASON FOR HOSPITALIZATION:: Community Acquired pneumonia, urinary retention, possible CVA PAST MEDICAL HISTORY/PAST SURGICAL HISTORY:: Past Medical History: Daniel's esophagus, Chronic low back pain, Depression with anxiety,. Development delay, borderline, Dysphagia, GERD, Hyperlipidemia, Hypertension, Hypothyroidism, Migraine headache without aura, Obstructive sleep apnea on CPAP, Osteoarthritis, osteoporosis, Sensorineural hearing loss, bilateral, Tardive akathisia, Tardive dyskinesia, Type 2 diabetes mellitus, Urgency incontinence. Surgical History: H/O bilateral cataract extraction, H/O tubal ligation, H/O umbilical hernia repair, H/O hysterectomy with bilateral oopherectomy, s/p cholecystectomy PREVIOUS FUNCTIONAL STATUS/SOCIAL/FAMILY SUPPORTS:: Noemi lives with her sister Chantal and her family in a 4 bedroom mobile home in [facility]. Besides Chantal, there is Chantal's , a 10 year old daughter and a 14 month old daughter, newly adopted, living in the home. Chantal states that Philomena's health has deteriorated in the past few weeks and that she requires total care. Chantal bathes and feeds Philomena and assists with all of her ADLs. She states that the shaking and tremors have significantly increased and are contributing to the deterioration in functioning.Philomena has 2 daughters but the y are not involved in her care, per Philomena's request. CURRENT FUNCTIONAL STATUS:: Philomena is awake and alert but is not very conversant with CM. Most information obtained from sister Chantal who is her HCA and POA. COLST form completed by Dr. Oneill this morning. Philomena requires maximum assist with ADLs. She is able to ambulate with a rolling walker and assist of 1. Both Philomena and Chantal want her to return home at discharge. She has been receiving HH services including nursing, OT and PT on Tuesdays and and goes to [facility] on Wednesday, Wednesday and Wednesday. ADVANCE DIRECTIVES:: COLST form on chart Has patient been provided with information about the portal?: No (Not interested) Did the patient sign up for the portal?: No CODE STATUS:: DNR/DNI INSURANCE COVERAGE / FINANCIAL ISSUES:: Medicare and Medicaid CURRENT HOME/COMMUNITY SERVICES/EQUIPMENT:: Receives HH care with nursing, OT and PT on and and attends [facility] on Wednesday, Wednesday and Wednesday. She uses a walker and a chair in the tub to shower. PRIMARY CARE PHYSICIAN:: Leti Franz MD POTENTIAL DISCHARGE NEEDS:: Follow up appointment with PCP. Philomena may need to go to an inpatient Patt-psych unit for medication management for a short time after discharge. Both Philomena and Chantal want Philomena to return home. PATIENT/FAMILY EDUCATION NEEDS:: Discharge education, limitations, follow-up plan of care, Ask Me Three and disposition. ANTICIPATED BARRIERS TO DISCHARGE:: Philomena will need to have her medications well managed before return to home. TRANSPORTATION:: via private auto with family PLAN:: Philomena is currently receiving IV antibiotics for her pneumonia. She does not require supplemental oxygen at this time. Philomena may need a short stay at an inpatient psychiatris facility for medication management at discharge and then transition back to her sister's home. She will need to resume HH services and Adult Day Care.
[2018-06-10 08:20] LABS: Absolute Monocyte Count 0.39 k/cumm (0.11-0.7); HCT 37.9 % (36.0-46.0); HGB 12.5 g/dL (12.0-15.5); Mean Corpuscular Hemoglobin 30.8 pg (27.0-33.0); Mean Corpuscular Volume 93.3 fL (80-95); Mean Platelet Volume 11.4 fL (8.0-11.0); Platelet Count 134 x1000/uL (130-400); RBC 4.06 m/cumm (4.00-5.20); RBC Distribution Width 12.7 % (11.7-14.6); White Blood Cell Count 3.86 k/cumm (4.4-10.8)
--- NOTE | 2018-06-10 08:30 | DI.US_ITS ---
SYMPTOMS/DIAGNOSIS: SUSPECTED CVA, HTN, HYPERLIPIDEMIA, FACIAL DROOP CAROTID ULTRASOUND: Routine examination was performed. On the right there is mild calcific plaque seen in the carotid bulbs. No hemodynamically significant velocity elevations are present on the right. The right vertebral artery is antegrade. On the left there is mild calcific plaque seen in the carotid bulb. No hemodynamically significant velocity elevations are seen on the left. The left vertebral artery is antegrade. IMPRESSION: No evidence of hemodynamically significant cervical cord artery stenosis.
[2018-06-10] MEDS: DOXYCYCLINE 100 MG in Normal Saline 100 ML IVPB ×2 (08:39→21:21)
[2018-06-10] MEDS: Multivitamin TAB 1 TAB PO (08:39)
[2018-06-10] MEDS: Escitalopram 20 MG TAB 30 MG PO (08:39)
[2018-06-10] MEDS: Propranolol 60 MG CAPCR PO (08:39)
[2018-06-10] MEDS: Dexlansoprazole 30 MG CAP PO ×2 (08:39→20:27)
[2018-06-10] MEDS: Insulin Glargine 300 UNITS/3 ML PEN 30 UNITS SC (08:40)
[2018-06-10] MEDS: Aspirin 81 MG CHEW PO (08:40)
[2018-06-10] MEDS: Triamcinolone 0.1% CR 15 GM TUBE TP (08:40)
[2018-06-10] MEDS: Levothyroxine 112 MCG TAB PO (08:40)
[2018-06-10 08:41] LABS: Anion Gap 7.7 mmol/L (3-11); BUN 10 mg/dL (7-18); CO2 27.3 mmol/L (21.0-32.0); CREATININE 0.74 mg/dL (0.55-1.02); Calcium 8.3 mg/dL (8.5-10.1); Chloride 111 mmol/L (98-107); Glucose 73 mg/dL (70-100); Magnesium 1.6 mg/dL (1.8-2.4); Potassium 3.2 mmol/L (3.5-5.1); Sodium 146 mmol/L (136-145)
[2018-06-10 08:54] LABS: Absolute Eosinophil Count 0.23 k/cumm (0.0-0.7); Absolute Lymphocyte Count 2.28 k/cumm (1.2-3.4); Absolute Neutrophil Count 0.97 k/cumm (1.2-6.7); Atypical Lymphocytes % 7; Diff Comment Manual Differential; RBC Morphology Normal
--- NOTE | 2018-06-10 09:05 | MERGE_ITS ---
*[facility]* *[facility]* [address] [place] [address] Date of study: 06/10/2018 Transthoracic Echocardiography M-mode, complete 2D, complete spectral Doppler, and color Doppler *STUDY CONCLUSIONS* Summary: 1. Left ventricle: The cavity size was normal. Wall thickness was normal. Systolic function was normal. The estimated ejection fraction was 55-60%. Wall motion was normal; there were no regional wall motion abnormalities. 2. Right ventricle: The cavity size was normal. Systolic function was normal. *PATIENT PRESENTATION* Height: 160cm ((63in) ) S/D Pressure: 190 / 67 Weight: 92.5kg ((203.6lb) ) BSA: 2.07m^2 Test start time: 09:00 AM. Test stop time: 09:50 AM. CONSULTING Leti Franz PERFORMING Unknown PERFORMING [facility] INSTANT PRINTER OPERATOR Mary Garrett ORDERING Maryse Jewell REFERRING Maryse Jewell *PROCEDURE DATA* Procedure information: This study was interpreted by [facility]. Pertinent images and digital data are archived for permanent storage and are available for subsequent review. Comparison was made to the study of 06/02/2018. Study status: Routine. Transthoracic echocardiography. M-mode, complete 2D, complete spectral Doppler, and color Doppler. A Transthoracic Echocardiogram was performed. Scanning was performed from the parasternal, apical, subcostal, and suprasternal notch acoustic windows. Images were obtained using an [employer] 2000 cardiac ultrasound machine. Image quality was adequate. Study completion: The patient tolerated the procedure well. There were no complications. History: PMH: CVA. *CARDIAC ANATOMY* Left ventricle: The cavity size was normal. Wall thickness was normal. Systolic function was normal. The estimated ejection fraction was 55-60%. Wall motion was normal; there were no regional wall motion abnormalities. Some parameters suggest diastolic dysfunction. There was no evidence of elevated ventricular filling pressure by Doppler parameters. Aortic valve: Trileaflet; normal thickness leaflets. Mobility was not restricted. Doppler: Transvalvular velocity was within the normal range. There was no stenosis. There was no significant regurgitation. VTI ratio of LVOT to aortic valve: 0.78. Valve area (VTI): 2.3cm^2. Indexed valve area (VTI): 1.1cm^2/m^2. Peak velocity ratio of LVOT to aortic valve: 0.67. Valve area (Vmax): 2cm^2. Indexed valve area (Vmax): 1cm^2/m^2. Mean velocity ratio of LVOT to aortic valve: 0.6. Valve area (Vmean): 1.8cm^2. Indexed valve area (Vmean): 0.9cm^2/m^2. Mean gradient (S): 3.7mm Hg. Peak gradient (S): 6.6mm Hg. Aorta: Aortic root: The aortic root was normal in size. Ascending aorta: The ascending aorta was normal in size. Mitral valve: Structurally normal valve. Mobility was not restricted. Doppler: Transvalvular velocity was within the normal range. There was no evidence for stenosis. There was trivial regurgitation. Valve area by pressure half-time: 3.9cm^2. Indexed valve area by pressure half-time: 1.9cm^2/m^2. Peak gradient (D): 2.5mm Hg. Left atrium: The atrium was normal in size. Right ventricle: The cavity size was normal. Systolic function was normal. Pulmonic valve: Poorly visualized. Doppler: Transvalvular velocity was within the normal range. There was no evidence for stenosis. There was no significant regurgitation. Tricuspid valve: Structurally normal valve. Doppler: Transvalvular velocity was within the normal range. There was no evidence for stenosis. There was mild regurgitation. Pulmonary artery: Poorly visualized. Pulmonary systolic pressure was increased, in the range of 40mm Hg to 45mm Hg. Right atrium: The atrium was normal in size. Pericardium: There was no pericardial effusion. Systemic veins: Inferior vena cava: The vessel was normal in size. Measurements Left ventricle Value 06/02/2018 Reference LV ID, ED, PLAX 4.4 cm 4.2 3.5 - 6.0 LV ID, ES, PLAX 3.4 cm 2.5 2.1 - 4.0 LV PW thickness, ED, PLAX 1.0 cm 1.0 LV end-diastolic volume, 131 ml 54 1-p A2C LV ejection fraction, 1-p 71 % 61 A2C LV end-diastolic volume, 100 ml 55 1-p A4C LV ejection fraction, 1-p 53 % 61 A4C LV e', lateral 0.123 m/sec 0.118 LV E/e', lateral 6 5 LV e', medial 0.11 m/sec 0.057 LV E/e', medial 7 11 LV e', average 0.117 m/sec 0.087 LV E/e', average 7 7 Ventricular septum Value 06/02/2018 Reference IVS thickness, ED, PLAX 0.9 cm 1.1 LVOT Value 06/02/2018 Reference LVOT ID, A-P 1.9 cm 2.0 LVOT area 3 cm^2 3.3 LVOT peak velocity, S 0.86 m/sec 1.05 LVOT mean velocity, S 0.55 m/sec 0.69 LVOT VTI, S 19.5 cm 23.6 LVOT peak gradient, S 3 mm Hg 4.4 LVOT mean gradient, S 1.5 mm Hg 2.3 Stroke volume (SV), LVOT 58 ml 77 DP Stroke index (SV/bsa), 28 ml/m^2 36 LVOT DP Aortic valve Value 06/02/2018 Reference Aortic valve peak 1.3 m/sec 1.2 velocity, S Aortic valve mean 0.93 m/sec 0.87 velocity, S Aortic valve VTI, S 25.0 cm 28.0 Aortic mean gradient, S 3.7 mm Hg 3.3 Aortic peak gradient, S 6.6 mm Hg 5.9 VTI ratio, LVOT/AV 0.78 0.84 Aortic valve area, VTI 2.3 cm^2 2.8 Velocity ratio, peak, 0.67 0.86 LVOT/AV Aortic valve area, peak 2 cm^2 2.8 velocity Velocity ratio, mean, 0.6 0.79 LVOT/AV Aortic valve area, mean 1.8 cm^2 2.6 velocity Aortic valve area/bsa, 0.9 cm^2/m^2 1.2 mean velocity Aorta Value 06/02/2018 Reference Aortic root ID, ED 3.0 cm 3.3 Ascending aorta ID, A-P, S 3.5 cm 3.3 Left atrium Value 06/02/2018 Reference LA ID, A-P, ES 3.7 cm 3.4 LA ID/bsa, A-P 1.8 cm/m^2 1.6 <=2.2 LA area, ES, A4C 17.9 cm^2 8.8 - 23.4 LA area, ES, A2C 14 cm^2 16 LA volume/bsa, S 45 ml/m^2 LA volume, ES, 2-p 45 ml LA volume/bsa, ES, 2-p 22 ml/m^2 LA/aortic root ratio 1.23 1.03 Mitral valve Value 06/02/2018 Reference Mitral E-wave peak 0.8 m/sec 0.63 velocity Mitral A-wave peak 0.81 m/sec 0.91 velocity Mitral deceleration time 193 ms 203 150 - 230 Mitral pressure half-time 56 ms 59 Mitral peak gradient, D 2.5 mm Hg Mitral E/A ratio, peak 0.99 0.69 Mitral valve area, PHT, DP 3.9 cm^2 3.7 Tricuspid valve Value 06/02/2018 Reference Tricuspid regurg peak 3.1 m/sec 2.9 velocity Tricuspid peak RV-RA 37.5 mm Hg 34.1 gradient Right atrium Value 06/02/2018 Reference RA area, ES, A4C 18.1 cm^2 8.3 - 19.5 Legend: (L) and (H) akshat values outside specified reference range. I have personally reviewed the images and have reviewed and edited the reported findings. Electronically signed by Gal Blackwood 06/10/2018 10:24
--- NOTE | 2018-06-10 11:42 | PT.INIE ---
Date of service: 06/10/18 Time of Service: 11:19 PT Notes Inpatient Physical Therapy Evaluation Date: 06/10/2018 Referring Doctor: Maryse Jewell MD PT Orders: PT CONSULT: Eval/treat Precautions: Fall. Standard. Patient Profile/Admitting Diagnosis: Order received for this 72-year-old female who presented to the ED on 06/09/2018 with chief complaints of cough, general weakness, unsteadiness of gait, and decreased appetite. Philomena was diagnosed with community-acquired pneumonia, ambulatory dysfunction, and weakness. PMHX: Medical History Daniel's esophagus Chronic low back pain Depression with anxiety Development delay, borderline Dysphagia GERD Hyperlipidemia Hypertension Hypothyroidism Migraine headache without aura Obstructive sleep apnea on CPAP Osteoarthritis Osteoporosis Sensorineural hearing loss (bilateral) Tardive dyskinesia Type 2 Diabetes Mellitus Urgency incontinence Schizophrenia Surgical History H/O bilateral cataract extraction H/O tubal ligation H/O umbilical hernia repair H/O hysterectomy with bilateral oopherectomy S/p cholecystectomy Social History/Home Situation: Philomena currently lives with her sister Chantal since February of last year who provides assistance with bathing. Sister states that she uses a folding chair, places chair inside the tub, and have Philomena step over and onto chair for bathing. Philomena goes to adult daycare via [employer] on a daily basis from Mondays through Fridays. At her sister's house, there is 4 steps to enter without rails but sister is able to provide minimal assistance to Philomena in and out of the house. Chantal states that she is thinking of having a ramp built at her house for easy access for Philomena. Chantal states that Philomena has been able to walk from her bedroom to the bathroom about 20-30 feet using her 4 wheeled walker. Patient has had 3 falls the past 12 months. Equipment Owned/DME: Sister states that Philomena has hospital bed that they have been renting as she states PCP has been having an issue about justifying her need for bed, 4WW but with left break broken. Patient also has a CPAP machine that she has not been using according to her sister Chantal due to the discomfort. Subjective: Philomena is agreeable to a PT consult and treatment today. Chantal states that home health SN/PT/OT has been coming in to their house for the past 2-3 weeks prior to admission for medication management and training, weakness, and ADL dependence. Objective: General Observation: Patient seen sitting on her chair with IV in right UE. Ortiz catheter on. Telemetry wires attached. Mental Status: Alert and oriented as to person and place. Unable to determine date and time. Pain: 0/10 ROM: Right Upper Extremity: WFL Left Upper Extremity: WFL Right Lower Extremity: Hip flexion to about 30 degrees while seated on chair. Knee and ankle joints WFL. Left Lower Extremity: Hip flexion to about 30 degrees while seated on chair. Knee and ankle joints WFL. Strength: Right Upper Extremity: WFL Left Upper Extremity: WFL Right Lower Extremity: Hip flexors 3-/5. Hip extensors 3-/5. Knee flexors 4-/5. Knee extensors 3+/5. Ankle plantar flexors 4-/5. Ankle dorsiflexors 4-/5. Left Lower Extremity: Hip flexors 3-/5. Hip extensors 3-/5. Knee flexors 4-/5. Knee extensors 3+/5. Ankle plantar flexors 4-/5. Ankle dorsiflexors 4-/5. Sensation: Intact as to pain and pressure to bilateral lower extremities. Bed Mobility/Transfers: Rolling min assist Supine to sit min assist Sit to supine mod assist Sit to stand mod assist Stand to sit mod assist Bed to chair mod assist Chair to bed mod assist Gait: Patient able to take 2 steps forward and backward while holding onto 4WW. She was also able to sidestep twice during bed to wheelchair transfer. Both required moderate assist from this PT. Balance: Static Sitting: Good Dynamic Sitting: Good Static Standing: Fair Dynamic Standing: Fair Special Tests: Mobility Limitations Standardized Measure [facility] AM-PAC 6 clicks Basic Mobility Inpatient Short Form: Raw Score: 11 CMS Score: 73% deficit Informed Consent/Education: Patient and sister Chantal were instructed in purpose of PT consult and plan of care. Assessment: Patient is a 72 year old female referred to physical therapy services with the diagnosis of community-acquired pneumonia, ambulatory dysfunction, and generalized weakness. Patient presents with clinical signs and symptoms consistent with current/admitting diagnoses that have resulted to mobility limitations, gait instability, generalized weakness, and lack of motor control as demonstrated by the following impairment level findings: 1. Decreased strength to B LE major muscle groups 2. Impaired balance 3. Impaired activity tolerance 4. Limitation of joint range of motion in the hips 5. Dyskinesia Impairments are contributing to the following functional limitations: 1. Decreased bed mobility skills 2. Increased dependence with transfers 3. Inability to safely ambulate without assistive device and physical assistance 4. Increase completion time for mobility ADL performance 5. Increased fall risk 6. Inability to negotiate steps alone safely Patient is assessed Moderate 59971 complexity based on the following: History: 72-year-old female with diagnosis of community-acquired pneumonia, ambulatory dysfunction, and generalized weakness with co-morbidities and past medical history as indicated above Examination: Underlying impairments and functional deficits have resulted to AMPAC score of 11 with an equivalent deficit of 73% Presentation: Evolving Decision Makin Moderate complexity Goals: Goals X1 week 1. Supine-Sit independent 2. Sit-Supine independent 3. Sit-Stand independent 4. Stand-Sit independent 5. Bed-Chair independent 6. Chair-Bed independent 7. Gait on level surface ambulation with use of least restrictive device for at least 300 feet without report of pain nor dyspnea 8. Stairs independent while holding onto bilateral rails for at least 10 steps without report of pain nor dyspnea 9. Independent with home exercise program with sister Chantal 10. Balance good for static and dynamic standing Plan of Care/Treatment Plan: 1-2x/day, 7 days/week x 1 week. Plan of care has been reviewed with the [employer] providing the service under Physical Therapy direction. Initiate Physical Therapy intervention for strengthening, bed mobility, transfers, gait, stairs, balance training, use of assistive device. DISCHARGE RECOMMENDATIONS: Patient will benefit from resumption of home health SN/PT/OT skilled services in order to facilitate a smooth transition to home upon discharge, evaluate home safety, reduce fall risk, ensure caregiver education and training for safety, and to establish a functional maintenance program for patient. TREATMENT CODE/TIME: 04083 20 minutes beginning at 11:19 AM. Thank you for this referral. Rox Brown, PT, DPT, CLT [facility]
--- NOTE | 2018-06-10 12:55 | PCNE_ITS ---
Date of service: 06/10/18 Time of Service: 09:55 History of Present Illness Chief Complaint: Failure to thrive, CAP Narrative: Patient is a 72-year-old woman who has baseline schizophrenia, bipolar disease. She lives with her sister Chantal. Chantal reports that Philomena has become unable to care for herself and needs help with all of her ADLs. This coincides with starting a new psych meds. She was admitted due to weakness and CAP. I was asked to see her to help with D POA and CO LST Philomena is able to tell me briefly what is going on with her. She had a good assessment of why she was in the hospital. I asked her who she wanted to make decisions for her if she could not make them. She very very clearly stated that she wanted her Sister Chantal to make those decisions. Chantal states that there is some discourse between Philomena and her children. Only Chantal is to make decisions. This was also said in front of a nursing teacher who came in to do vitals. Consults Consult date: 06/10/18 Requesting physician: Maryse Jewell Assessment and Plan (1) Advance directive discussed with patient: Current visit: Yes Status: Acute I do feel that Philomena is competent to make her own decisions regarding who she would want for her DPA. She clearly shows her Sister Chantal. We did complete the D POA form We also did talk about end-of-life choices. We completed a CO LST form. She is a DNR/DNI. She does not want extraordinary means. She still would want antibiotics and IV fluids. I am happy to reconsult Philomena if there are additional issues that she would like me to discuss with her and her sister Chantal This document was created by [employer] recognition and may contain grammatical and translation errors. I have spent more than 50% of time in counseling with this patient. Review of Systems Constitutional Reports body ache(s), Reports daytime sleepiness, Reports fever(s), Reports lethargy, Reports malaise and Reports weakness Comments: Since the start of Philomena's new medication, she has become increasingly weak and requiring help with all the ADLs. Cardiovascular Denies chest pain with activity and Reports dyspnea Respiratory Reports chest congestion and Reports dyspnea Gastrointestinal Reports system reviewed and no additional complaints, except as docu Neurologic Reports weakness Psychiatric Comments: She has schizophrenia and bipolar disease. She is under the care of our mental health system. She is dependent on her sister for all ADLs [facility] Medical History Developmental delay, borderline (Chronic) Migraine headache without aura (Chronic) Osteoporosis (Chronic) Depression with anxiety (Chronic) Chronic low back pain (Chronic) Osteoarthritis (Chronic) Hypothyroidism (Chronic) Arias's esophagus (Chronic) GERD (gastroesophageal reflux disease) (Chronic) Obstructive sleep apnea on CPAP (Chronic) Type 2 diabetes mellitus (Chronic) Hyperlipidemia (Chronic) Hypertension (Chronic) Urgency incontinence (Chronic 05/01/15) Tardive dyskinesia (Chronic 01/26/17) 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) Sensorineural hearing loss, bilateral (Chronic 01/07/15) Dysphagia, unspecified (Chronic 06/22/16) Social History Smoking/Tobacco Use Status: Never Alcohol Intake: never Drug use: Never Substance use type: does not use Housing: assisted living facility Number of Children: 8 Do you feel safe in your relationship?: Yes Additional Social history: She attends [employer] [employer] 3x per week. Exam Narrative Exam Narrative: Philomena is sitting in her chair. She is able to tell me basic facts such as where she is who she is who the other people in the room more. She could also tell me about why she was in the hospital and what the plan was. Results Last Vital Signs Temp 97.7 F 06/10/18 07:30 Pulse 67 06/10/18 10:48 Resp 18 06/10/18 07:30 BP 190/67 H 06/10/18 07:30 Pulse Ox 94 L 06/10/18 07:30 Labs : 06/11/18 06:40 06/11/18 06:40 Laboratory Results - last 24 hr 06/09/18 06/09/18 06/09/18 14:15 14:15 14:15 WBC 4.91 RBC 4.69 Hgb 14.4 Hct 43.4 MCV 92.5 MCH 30.7 MCHC 33.2 RDW 12.9 Plt Count 179 MPV 10.7 Immature Gran % 0.0 Neutrophils % 34.0 Lymphocytes % 53.0 Atypical Lymphs % Monocytes % 8.0 Eosinophils % 5.0 Basophils % 0.0 Absolute Neutrophils 1.67 Absolute Lymphocytes 2.60 Absolute Monocytes 0.39 Absolute Eosinophils 0.25 Absolute Basophils 0.00 Differential Comment Manual differential RBC Morphology Normal Sodium 141 Potassium 3.9 Chloride 103 Carbon Dioxide 30.2 Anion Gap 7.8 BUN 11 Creatinine 0.89 Estimated GFR/1.73 m2 >= 60.00 Glucose 88 Calcium 9.2 Magnesium 1.9 Total Bilirubin 0.6 AST 27 ALT 21 Alkaline Phosphatase 84 Creatine Kinase 39 Troponin I < 0.02 Total Protein 7.6 Albumin 3.4 TSH 0.84 Urine Color Urine Clarity Urine pH Ur Specific [place] Urine Protein Urine Ketones Urine Blood Urine Nitrite Urine Bilirubin Urine Urobilinogen Ur Leukocyte Esterase Urine Glucose 06/09/18 06/10/18 06/10/18 14:45 06:50 06:50 WBC 3.86 L RBC 4.06 Hgb 12.5 Hct 37.9 MCV 93.3 MCH 30.8 MCHC 33.0 RDW 12.7 Plt Count 134 MPV 11.4 H Immature Gran % 0.0 Neutrophils % 25.0 Lymphocytes % 52.0 Atypical Lymphs % 7 Monocytes % 10.0 Eosinophils % 6.0 Basophils % 0.0 Absolute Neutrophils 0.97 L Absolute Lymphocytes 2.28 Absolute Monocytes 0.39 Absolute Eosinophils 0.23 Absolute Basophils 0.00 Differential Comment Manual differential RBC Morphology Normal Sodium 146 H Potassium 3.2 L Chloride 111 H Carbon Dioxide 27.3 Anion Gap 7.7 BUN 10 Creatinine 0.74 Estimated GFR/1.73 m2 >= 60.00 Glucose 73 Calcium 8.3 L Magnesium 1.6 L Total Bilirubin AST ALT Alkaline Phosphatase Creatine Kinase Troponin I Total Protein Albumin TSH Urine Color Yellow Urine Clarity Clear Urine pH 6.0 Ur Specific [place] 1.015 Urine Protein Negative Urine Ketones Negative Urine Blood Negative Urine Nitrite Negative Urine Bilirubin Negative Urine Urobilinogen 0.2 Ur Leukocyte Esterase Negative Urine Glucose Negative
--- NOTE | 2018-06-10 13:08 | DI.MRI_ITS ---
SYMPTOMS/DIAGNOSIS: COMMUNITY-ACQUIRED PNEUMONIA, ? CEREBROVASCULAR ACCIDENT MRI OF THE BRAIN: Noncontrast examination was performed. There is cerebral atrophy consistent with the patient's age. The diffusion weighted images show no evidence of an acute infarct. No intracranial hemorrhage is present. The ventricles are intact. The basilar cisterns are patent. There is no acute midline shift or mass effect. The orbits and retroorbital soft tissues appear grossly unremarkable. The pituitary gland appears grossly unremarkable. There is mild patient motion artifact present. IMPRESSION: No evidence of an acute infarct. MRA OF THE BRAIN: Routine noncontrast examination was performed. The distal internal carotid arteries are unremarkable. No occlusion or significant stenosis is seen. The anterior cerebral arteries are unremarkable. No evidence of occlusion or aneurysm. No significant stenosis is present. The middle cerebral arteries are unremarkable without evidence of occlusion or aneurysm. No significant stenosis is seen. The posterior cerebral arteries arise from the posterior communicating arteries bilaterally. This is a normal variant. No significant stenosis is seen. No aneurysm or occlusion is present. The basilar artery is unremarkable. No evidence of occlusion or aneurysm is seen. IMPRESSION: Unremarkable MRA of the [place].
--- NOTE | 2018-06-10 13:22 | EVALE_ITS ---
Date of service: 06/10/18 Time of Service: 11:00 Speech Therapy Evaluation Note: REFERRING PROVIDER: Dr. Jewell BACKGROUND This is a 72 year old right-handed female who [facility] with multiple concerns expressed by her sister. A CXR showed left-sided opacities which could represent atelectasis or infection. She was admitted for tx of CAP with a question of aspiration pneumonia, and a swallow eval was requested. This is her second dx of pneumonia this month. PMH: bipolar 1 disorder, schizophrenia, psychosis, DM, tardive dyskinesia, h/o cognitive deficit. The patient's sister is able to provide additional background information regarding p.o. consistencies take in the days prior to this admission. The patient (pt) has been taking what, by description, are Thin liquids, a chopped/almost pureed diet and whole pills one at a time with a Thin liquid wash. Her sister states that it is not unusual for Philomena to cough when drinking Thin liquids and that she was given thickened liquids at [facility]. However, Philomena refused the thickened liquids after watching the staff prepare them. OBJECTIVE Nursing reports: - T: 36.0 - O2 sat: 96% on RA - LS: bilateral (B) crackles and diminished in the presence of ABX The pt greets me with delalyed but good direct eye contact. There is a paucity of spontaneous speech but she does answer questions with significantly delayed responses. She is A & O x 1 (person) and able to follow some 2-step directions. She shows a bilateral upper extremity tremor. Oral Sensorimotor Exam The pt is totally edentulous and has no dentures. She denies any oral discomfort. Oral sensation for buccal, labial & lingual areas is WNL-B. Motorically, there is no facial droop but the smile is mildly decreased on the left. No lingual deviation on protrusion is seen in a setting of moderately- severely decreased excursion. Lingual lateralization is severely decreased bilaterally making limgual rapid alternating movements absent. Lingual strength is severely decreased bilaterally, but velopharyngeal elevation is WNL-B. Volitional cough is WNL but volitional throat-clear is mildly-moderately decreased. Speech intelligibility to this unfamiliar listener in the absence of background noise is 100% despite slow speech rate and imprecise consonant production. Vocal quality is WNL as is vocal intensity. Swallowing: - Honey-thick liquid: Adequate bolus control but moderately-severely delayed posterior oral transit (POT); delayed arlene signs/symptoms (s/s) aspiration/penetration (A/P); oral clearance 100%; no oral escape. Pt is then trialed on use of compensatory swallow strategies: 1) chin-tuck: unable to do secondary to decreased head/neck ROM; 2) effortful/forceful swallow: able to do with cueing and shows no arlene s/s A/P, either immediate or delayed. - Puree food: Adequate bolus control but mildly-moderately delayed POT; no arlene s/s A/P; oral clearance 100%; no oral escape. - Mechanically Altered food: Use of increased mastication time which results in mildly decreased mastication quality; bolus control mildly decreased; POT moderately-severely delayed; no arlene s/s A/P; oral clearance 90%; no oral escape. INTERPRETATION The pt shows a moderate-severe oropharyngeal dysphagia of uncertain etiology. REDOMMENDATIONS 1. Continue Puree diet. 2. Change to: a) Honey-thick liquids b) crushed pills in puree or nonoral medications 3. Aided feeding with cueing of pt for use of forceful/effortful swallow with all liquids. 4. Sippy cups 5. No straws 6. Speech therapy to maximize swallow safety. Thank you for referring this pt.
--- NOTE | 2018-06-10 13:26 | OT.INIE ---
Occupational Therapy Notes Inpatient Occupational Therapy Evaluation Date: 06/10/18 Referring Doctor:Maryse Jewell MD OT Orders: Eval and Treat Precautions: Fall, Standard PATIENT PROFILE/ADMITTING DIAGNOSIS: Pt is a 72 year old female who was admitted through the ER for cough, weakness, unsteadiness and decrease in appetite. She was then later dx with CAP and admitted to Med Surg. Past Medical History: GERD, Hyperlipidemia, Hypertension, Hypothyroidism, Migraine headache without aura, Obstructive sleep apnea on CPAP, Osteoarthritis, osteoporosis, Sensorineural hearing loss, bilateral,Tardive akathisia, Tardive dyskinesia, Type 2 diabetes mellitus, Urinary incontinence,Daniel's esophagus, Chronic low back pain, Depression with anxiety,. Development delay, borderline, Dysphagia. Social History/Home Situation: Pt lives with her sister in a private home. Pt states that she requires (A) for ADL/IADL routines. She notes that she is unable to get dressed, bath or perform functional mobility without (A). Per sister report, to the physical therapist she currently uses a folding chair in the shower for bathing routine. OT recommends shower bench to increase pts safety for functional transfer and bathing routine. Equipment owned/DME: Hospital bed, 4WW per pts EMR. SUBJECTIVE: Pt was lying in bed when OT arrived. She was attempting to get up with nursing to go to the bathroom and was agreeable to OT session. OBJECTIVE: General Observation: IV (R) UE Mental Status: Alert to name Pain: no c/o pain ROM: RUE Shoulder flexion 160*, elbow WNL, hand/digits WNL L UE Shoulder flexion 160*, elbow WNL, hand/digits WNL STRENGTH: RUE Shoulder flexion 3+/5, bicep 4-/5, tricep 4/5, associate partner 4+/5 LUE Shoulder flexion 4/5, bicep 4-/5, tricep 4/5, associate partner 5/5 FUNCTIONAL MOBILITY/ADLS: Transfers Supine-sit Mod (A) Sit-supine Mod (A) Sit-Stand Mod (A), 4WW Stand-sit Mod (A), 4WW Bed-Chair CGA, 4WW Chair-bed CGA, 4WW BATHING NT as pt was going for further testing. DRESSING NT as pt was going for further testing. GROOMING Standing at sink pt was able to perform hand washing with min vc and CGA for functional dynamic balance in the standing position. TOILETING On toilet with mod (A) toileting hygiene EATING Max (A) with regular utensils due to (B) UE tremor. OT recommends that pt use weighted utensils to increase (I) in eating routine. BALANCE: Static sitting Good Dynamic Sitting Fair Static Standing Fair Dynamic Standing Fair SPECIAL TESTS: Daily Activity Limitations Standardized Measure [facility] AM -PAC ?6 clicks? Daily Activity Inpatient Short Form: Raw score: 20 INFORMED CONSENT/EDUCATION: Pt instructed in purpose of OT Consult and plan of care. ASSESSMENT: Patient is a 72-year-old female referred to occupational therapy services with diagnosis of complaint of cough, general weakness, unsteady gait, and decreased appetite. She was later dx with community-acquired pneumonia. Patient presents with clinical signs and symptoms consistent with dx, as demonstrated by the following impairment level findings: Decreased strength (B) UE shoulder flexion, cognitive deficits, PMHx, decreased functional activity tolerance. Impairments are contributing to the following functional limitations: Decreased functional mobility, decreased functional activity tolerance, use of 4WW for functional mobility, decreased (I) in eating routine due to tremor, decreased (I) in toileting routine, decreased (I) in bathing and dressing routine in the sitting position. Patient is assessed as a Moderate 40116 complexity based on the following: History: See Above Examination: See Above Presentation: Evolving Decision Making: Moderate based on examination GOALS Goals x1 week 1. Transfers SBA, 4WW 2. Dressing Sitting in chair pt will require mod (A) for LE and min (A) for UE dressing. 3. Bathing sitting in chair with max (A) set up (I) with UE bathing and Mod (A) LE bathing. 4. Toileting Mod (A) on toilet. 5. Eating Min (A) with adaptive silverware 6. Standing at sink with 4WW (I) PLAN OF CARE/TREATMENT PLAN: 1x/day, 5 days/ week x 1week Initiate Occupational Therapy Services for bathing, dressing, grooming, toileting, eating, transfer training. DISCHARGE RECOMMENDATIONS OT recommends that pt return home with Home Health OT for assessment of pts ADLs/IADLs in the home setting when medically cleared per MD. OT recommends that pt have shower chair/bench to increase pts safety with her bathing routine in her home setting. TREATMENT TIME/MINUTES/CODES 83851, [id number], 25 minutes (08:10) Amber Atwood OTR/[facility]
--- NOTE | 2018-06-10 13:30 | OTIE_ITS ---
Occupational Therapy Notes Inpatient Occupational Therapy Evaluation Date: 06/10/18 Referring Doctor:Maryse Jewell MD OT Orders: Eval and Treat Precautions: Fall, Standard PATIENT PROFILE/ADMITTING DIAGNOSIS: Pt is a 72 year old female who was admitted through the ER for cough, weakness, unsteadiness and decrease in appetite. She was then later dx with CAP and admitted to Med Surg. Past Medical History: GERD, Hyperlipidemia, Hypertension, Hypothyroidism, Migraine headache without aura, Obstructive sleep apnea on CPAP, Osteoarthritis, osteoporosis, Sensorineural hearing loss, bilateral,Tardive akathisia, Tardive dyskinesia, Type 2 diabetes mellitus, Urinary incontinence,Daniel's esophagus, Chronic low back pain, Depression with anxiety,. Development delay, borderline, Dysphagia. Social History/Home Situation: Pt lives with her sister in a private home. Pt states that she requires (A) for ADL/IADL routines. She notes that she is unable to get dressed, bath or perform functional mobility without (A). Per sister report, to the physical therapist she currently uses a folding chair in the shower for bathing routine. OT recommends shower bench to increase pts safety for functional transfer and bathing routine. Equipment owned/DME: Hospital bed, 4WW per pts EMR. SUBJECTIVE: Pt was lying in bed when OT arrived. She was attempting to get up with nursing to go to the bathroom and was agreeable to OT session. OBJECTIVE: General Observation: IV (R) UE Mental Status: Alert to name Pain: no c/o pain ROM: RUE Shoulder flexion 160*, elbow WNL, hand/digits WNL L UE Shoulder flexion 160*, elbow WNL, hand/digits WNL STRENGTH: RUE Shoulder flexion 3+/5, bicep 4-/5, tricep 4/5, mottler operator 4+/5 LUE Shoulder flexion 4/5, bicep 4-/5, tricep 4/5, mottler operator 5/5 FUNCTIONAL MOBILITY/ADLS: Transfers Supine-sit Mod (A) Sit-supine Mod (A) Sit-Stand Mod (A), 4WW Stand-sit Mod (A), 4WW Bed-Chair CGA, 4WW Chair-bed CGA, 4WW BATHING NT as pt was going for further testing. DRESSING NT as pt was going for further testing. GROOMING Standing at sink pt was able to perform hand washing with min vc and CGA for functional dynamic balance in the standing position. TOILETING On toilet with mod (A) toileting hygiene EATING Max (A) with regular utensils due to (B) UE tremor. OT recommends that pt use weighted utensils to increase (I) in eating routine. BALANCE: Static sitting Good Dynamic Sitting Fair Static Standing Fair Dynamic Standing Fair SPECIAL TESTS: Daily Activity Limitations Standardized Measure [facility] AM -PAC ?6 clicks? Daily Activity Inpatient Short Form: Raw score: 20 INFORMED CONSENT/EDUCATION: Pt instructed in purpose of OT Consult and plan of care. ASSESSMENT: Patient is a 72-year-old female referred to occupational therapy services with diagnosis of complaint of cough, general weakness, unsteady gait, and decreased appetite. She was later dx with community-acquired pneumonia. Patient presents with clinical signs and symptoms consistent with dx, as demonstrated by the following impairment level findings: Decreased strength (B) UE shoulder flexion, cognitive deficits, PMHx, decreased functional activity tolerance. Impairments are contributing to the following functional limitations: Decreased functional mobility, decreased functional activity tolerance, use of 4WW for functional mobility, decreased (I) in eating routine due to tremor, decreased (I) in toileting routine, decreased (I) in bathing and dressing routine in the sitting position. Patient is assessed as a Moderate 82937 complexity based on the following: History: See Above Examination: See Above Presentation: Evolving Decision Making: Moderate based on examination GOALS Goals x1 week 1. Transfers SBA, 4WW 2. Dressing Sitting in chair pt will require mod (A) for LE and min (A) for UE dressing. 3. Bathing sitting in chair with max (A) set up (I) with UE bathing and Mod (A) LE bathing. 4. Toileting Mod (A) on toilet. 5. Eating Min (A) with adaptive silverware 6. Standing at sink with 4WW (I) PLAN OF CARE/TREATMENT PLAN: 1x/day, 5 days/ week x 1week Initiate Occupational Therapy Services for bathing, dressing, grooming, toileting, eating, transfer training. DISCHARGE RECOMMENDATIONS OT recommends that pt return home with Home Health OT for assessment of pts ADLs/IADLs in the home setting when medically cleared per MD. OT recommends that pt have shower chair/bench to increase pts safety with her bathing routine in her home setting. TREATMENT TIME/MINUTES/CODES 68102, [id number], 25 minutes (08:10) Amber Atwood OTR/[facility]
[2018-06-10] MEDS: MAGNESIUM SULFATE 2 GM/50 ML BAG IVPB (13:43)
[2018-06-10] MEDS: POTASSIUM CHLORIDE 20 MEQ/100 ML BAG 50 MEQ IVPB ×2 (15:36→17:17)
--- NOTE | 2018-06-10 17:19 | PT.INTREAT ---
Date of service: 06/10/18 Time of Service: 13:20 PT Notes Inpatient Physical Therapy Treatment Note [facility] Date: 06/10/2018 PRECAUTIONS: Fall. Standard. SUBJECTIVE: Patient more energetic this afternoon although required repetition of instructions and cueing. OBJECTIVE: PAIN: 0/10 BED MOBILITY/TRANSFERS Rolling L/R: min A Supine-sit: min A Sit-supine: min A Sit-stand: mod A Stand-sit: mod A Bed-Chair: mod A Chair-bed: mod A GAIT Assistive Device: 4WW Weight bearing: Full Assist: Minimal assist Distance: 40 feet x2 Deviation: Unremarkable except for slowed eve THEREX: Patient was able to tolerate standing level exercises while holding onto 4WW including hip flexion, hip extension, and mini squats x 10 without dyspnea nor increased discomfort/pain. ASSESSMENT: Patient is pleasant and cooperative and has good prognosis for achieving mobility goals, strength, and activity tolerance with PT POC. PLAN: Continue with PT POC as established this morning. TREATMENT CODE/TIME: 7530 30 minutes, 71310 15 minutes, beginning at 1320 p.m..
--- NOTE | 2018-06-10 17:26 | PTTR_ITS ---
Date of service: 06/10/18 Time of Service: 13:20 PT Notes Inpatient Physical Therapy Treatment Note [facility] Date: 06/10/2018 PRECAUTIONS: Fall. Standard. SUBJECTIVE: Patient more energetic this afternoon although required repetition of instructions and cueing. OBJECTIVE: PAIN: 0/10 BED MOBILITY/TRANSFERS Rolling L/R: min A Supine-sit: min A Sit-supine: min A Sit-stand: mod A Stand-sit: mod A Bed-Chair: mod A Chair-bed: mod A GAIT Assistive Device: 4WW Weight bearing: Full Assist: Minimal assist Distance: 40 feet x2 Deviation: Unremarkable except for slowed eve THEREX: Patient was able to tolerate standing level exercises while holding onto 4WW including hip flexion, hip extension, and mini squats x 10 without dyspnea nor increased discomfort/pain. ASSESSMENT: Patient is pleasant and cooperative and has good prognosis for achieving mobility goals, strength, and activity tolerance with PT POC. PLAN: Continue with PT POC as established this morning. TREATMENT CODE/TIME: 7530 30 minutes, 36825 15 minutes, beginning at 1320 p.m..
[2018-06-10 17:42] LABS: Troponin I < 0.02 ng/mL (0.00-0.06)
[2018-06-10] MEDS: clonazePAM 0.5 MG TAB 0.25 MG PO (18:14)
--- NOTE | 2018-06-10 20:16 | PGE_ITS ---
Date of Service Date of service: 06/10/18 Time of Service: 15:30 Assessment and Plan (1) Chest pain: Current visit: Yes Status: Acute R/o ACS. Patient had an echo earlier today with no wall motion abnormalities. I feel that the chest pain is likely due to pneumonia. Will monitor on tele overnight and trend troponins. Give asa now. (2) Atrial flutter: Current visit: Yes Status: Acute Rate seems to be controlled. New Dx. Echo with preserved EF. Anticoagulation should be thought about carefully, as the patient is at a significant fall risk. (3) CAP (community acquired pneumonia): Current visit: Yes Status: Acute Likely aspiration pneumonia present on admission. Continue empiric doxycycline/aztreonam/flagyl. Modified diet entered. (4) Tardive dyskinesia: Current visit: No Status: Chronic Hold vraylar. Continue Ingrezza. Case discussed with Dr Jorge who will see the patient on Wednesday and agrees with current management. PT/OT consulted. May require inpatient psychiatric hospitalization for medication adjustment once medically cleared. (5) Dysphagia, unspecified: Current visit: No Status: Chronic partially likely due to Tardive dyskinesia. As above (6) Type 2 diabetes mellitus: Current visit: No Status: Chronic Hypoglycemic this am. At this point, I feel can hold long acting insulin and see how the patient does with SSI alone and reintroduce long acting insulin once we have a better idea. (7) Hypertension: Current visit: No Status: Chronic Monitor (8) Hyperlipidemia: Current visit: No Status: Chronic Continue home statin (9) Ambulatory dysfunction: Current visit: Yes Status: Acute PT/OT consults (10) Schizophrenia: Current visit: Yes Status: Chronic Hold vraylar (11) Bipolar disorder: Current visit: Yes Status: Chronic Current episode of weakness/depression could be a part of decompensated BiPolar d/o. Psychiatry will see the patient on Wednesday (12) Facial droop as late effect of cerebrovascular accident (CVA): Current visit: Yes Status: Ruled-out No evidence of CVA on MRI/MRA and carotid doppler is negative. This is likely this patient's normal. She is certainly at a high risk for CVA due to the Aflutter we now know she has. Anticoagulation is a topic that needs to be discussed with sister and palliative care as the patient has a prohibitive risk of falls. (13) DVT prophylaxis: Current visit: Yes Status: Acute Lovenox (14) Discharge planning issues: Current visit: Yes Status: Acute DNR/DNI Sister is the decision maker COLST form signed; DPOA paperwork signed Will likely need inpatient psychiatric hospitalization once medically cleared Subjective Interval history since last seen: The patient states she feels better today. Denies dizziness, chest pain, shortness of breath. Continues to have some cough. Denies nausea, vomiting. Evaluated by speech therapy today - modified diet recommendations made. Went into atrial flutter overnight, but remained rate controlled. This evening, reports chest pain, which is relieved with nitroglycerin. Exam Narrative Exam Narrative: General: Very pleasant elderly female, laying flat in bed, not in acute distress, A&Ox2, contiuously having tremors and lip smack ing/stereotypic tongue movements HEENT: Atraumatic, normocephalic, EOMI, MMM, edentuous, no submandibular or cervical lymphadenopathy, no goiter, or JVD Cardiovascular: RRR, no m/r/g Lungs: quiet rhonchi on expiration B Gastrointestinal: abdomen is soft, nontender, nondistended Extremities: no e/c/c BLE's Objective Objective Clinical Data: Abnormal lab results 06/10/18 06/10/18 Range/Units 06:50 06:50 WBC 3.86 L (4.4-10.8) k/cumm MPV 11.4 H (8.0-11.0) fL Absolute Neutrophils 0.97 L (1.2-6.7) k/cumm Sodium 146 H (136-145) mmol/L Potassium 3.2 L (3.5-5.1) mmol/L Chloride 111 H (98-107) mmol/L Calcium 8.3 L (8.5-10.1) mg/dL Magnesium 1.6 L (1.8-2.4) mg/dL Vital Signs Temperature 36.6 C 06/10/18 17:26 Temperature Source Tympanic 06/10/18 17:26 Pulse 70 06/10/18 17:30 Pulse Rhythm Regular 06/10/18 07:40 Pulse 69 06/09/18 17:43 Respiratory Rate 16 06/10/18 17:26 Respiratory Effort Non-Labored 06/10/18 07:40 Respiratory Depth Normal 06/10/18 07:40 Respiratory Pattern Normal 06/10/18 07:40 Blood Pressure 107/58 L 06/10/18 17:30 Blood Pressure Mean 71 06/09/18 17:43 Blood Pressure Position Sitting 06/09/18 13:34 Pulse Oximetry 95 06/10/18 17:26 Oxygen Delivery Method Room Air 06/10/18 17:26 Oxygen Flow Rate 0 06/10/18 17:26 Pain Level 2 06/10/18 17:30 Comment 06/10/18 17:30 Intake & Output 06/09/18 06/10/18 06/10/18 23:59 11:59 23:59 Intake Total 250 / 250 2572.5 / 3759.167 1186.667 / 3759.167 Output Total 750 / 750 750 / 950 200 / 950 Balance -500 / -500 1822.5 / 2809.167 986.667 / 2809.167 Weight 92.986 kg 91.4 kg Intake: IV 250 / 250 2092.5 / 3029.167 936.667 / 3029.167 Oral 480 / 730 250 / 730 Output: Urine 750 / 750 750 / 950 200 / 950 Other: Urine Color Yellow Light Natty Straw Urine Appearance Clear Clear Clear Urine Odor Normal Strong Comment Void x1 in the toilet. Pt. missed the hat; RN unable to determine urine output amount. Stool Size Moderate Stool Characteristics Soft Liquid Brown Voiding Methods Toilet Bedside Commode Laboratory Results WBC 3.86 k/cumm (4.4-10.8) L 06/10/18 06:50 RBC 4.06 m/cumm (4.00-5.20) 06/10/18 06:50 Hgb 12.5 g/dL (12.0-15.5) 06/10/18 06:50 Hct 37.9 % (36.0-46.0) 06/10/18 06:50 MCV 93.3 fL (80-95) 06/10/18 06:50 MCH 30.8 pg (27.0-33.0) 06/10/18 06:50 MCHC 33.0 g/dL (32.0-36.0) 06/10/18 06:50 RDW 12.7 % (11.7-14.6) 06/10/18 06:50 Plt Count 134 x1000/uL (130-400) 06/10/18 06:50 MPV 11.4 fL (8.0-11.0) H 06/10/18 06:50 Immature Gran % 0.0 06/10/18 06:50 Neutrophils % 25.0 06/10/18 06:50 Lymphocytes % 52.0 06/10/18 06:50 Atypical Lymphs % 7 06/10/18 06:50 Monocytes % 10.0 06/10/18 06:50 Eosinophils % 6.0 06/10/18 06:50 Basophils % 0.0 06/10/18 06:50 Absolute Neutrophils 0.97 k/cumm (1.2-6.7) L 06/10/18 06:50 Absolute Lymphocytes 2.28 k/cumm (1.2-3.4) 06/10/18 06:50 Absolute Monocytes 0.39 k/cumm (0.11-0.7) 06/10/18 06:50 Absolute Eosinophils 0.23 k/cumm (0.0-0.7) 06/10/18 06:50 Absolute Basophils 0.00 k/cumm (0.0-0.2) 06/10/18 06:50 Differential Comment Manual differential 06/10/18 06:50 RBC Morphology Normal 06/10/18 06:50 Sodium 146 mmol/L (136-145) H 06/10/18 06:50 Potassium 3.2 mmol/L (3.5-5.1) L 06/10/18 06:50 Chloride 111 mmol/L (98-107) H 06/10/18 06:50 Carbon Dioxide 27.3 mmol/L (21.0-32.0) 06/10/18 06:50 Anion Gap 7.7 mmol/L (3-11) 06/10/18 06:50 BUN 10 mg/dL (7-18) 06/10/18 06:50 Creatinine 0.74 mg/dL (0.55-1.02) 06/10/18 06:50 Estimated GFR/1.73 m2 >= 60.00 (mL/min/1.73m2) 06/10/18 06:50 Glucose 73 mg/dL (70-100) 06/10/18 06:50 Calcium 8.3 mg/dL (8.5-10.1) L 06/10/18 06:50 Magnesium 1.6 mg/dL (1.8-2.4) L 06/10/18 06:50 Total Bilirubin 0.6 mg/dL (0.2-1.0) 06/09/18 14:15 AST 27 U/L (15-37) 06/09/18 14:15 ALT 21 U/L (12-78) 06/09/18 14:15 Alkaline Phosphatase 84 U/L (46-116) 06/09/18 14:15 Creatine Kinase 39 U/L (26-192) 06/09/18 14:15 Troponin I < 0.02 ng/mL (0.00-0.06) 06/10/18 17:15 Total Protein 7.6 g/dL (6.4-8.2) 06/09/18 14:15 Albumin 3.4 g/dL (3.4-5.0) 06/09/18 14:15 TSH 0.84 uIU/mL (0.358-3.74) 06/09/18 14:15 Urine Color Yellow (Yellow) 06/09/18 14:45 Urine Clarity Clear 06/09/18 14:45 Urine pH 6.0 (5-8) 06/09/18 14:45 Ur Specific [place] 1.015 (1.005-1.025) 06/09/18 14:45 Urine Protein Negative mg/dL (Negative) 06/09/18 14:45 Urine Ketones Negative mg/dL (Negative) 06/09/18 14:45 Urine Blood Negative (Negative) 06/09/18 14:45 Urine Nitrite Negative (Negative) 06/09/18 14:45 Urine Bilirubin Negative (Negative) 06/09/18 14:45 Urine Urobilinogen 0.2 EU/dL (Up TO 0.2) 06/09/18 14:45 Ur Leukocyte Esterase Negative (Negative) 06/09/18 14:45 Urine Glucose Negative mg/dL (Negative) 06/09/18 14:45
[2018-06-10 21:38] LABS: Troponin I < 0.02 ng/mL (0.00-0.06)
[2018-06-10] MEDS: Simvastatin 20 MG TAB PO (22:07)
[2018-06-10] MEDS: clonazePAM 0.5 MG TAB PO (22:07)
[2018-06-11] VITALS (12 sets, daily range): BP systolic 95–120; BP diastolic 53–68; PULSE 53–78; RESP 14–20; TEMP 36.3–36.8; O2SAT 90–98
[2018-06-11] MEDS: Normal Saline 1,000 ML 150 ML IV (02:08)
[2018-06-11] MEDS: metroNIDAZOLE 500 MG/100 ML BAG 100 MG IVPB ×3 (02:08→17:47)
[2018-06-11] MEDS: AZTREONAM 2,000 MG in Normal Saline 100 ML 200 MG IVPB ×3 (04:03→19:35)
[2018-06-11] MEDS: Levothyroxine 112 MCG TAB PO (05:40)
[2018-06-11 07:19] LABS: Absolute Basophil Count 0.01 k/cumm (0.0-0.2); Absolute Eosinophil Count 0.39 k/cumm (0.0-0.7); Absolute Lymphocyte Count 2.51 k/cumm (1.2-3.4); Absolute Neutrophil Count 1.77 k/cumm (1.2-6.7); Basophils % 0.2; Eosinophils % 7.7; HCT 37.5 % (36.0-46.0); HGB 12.3 g/dL (12.0-15.5); Lymphocytes % 49.4; Mean Corp. HGB Concentration 32.8 g/dL (32.0-36.0); Mean Corpuscular Hemoglobin 30.7 pg (27.0-33.0); Mean Corpuscular Volume 93.5 fL (80-95); Mean Platelet Volume 10.9 fL (8.0-11.0); Monocytes % 7.9; Neutrophils % 34.8; Platelet Count 140 x1000/uL (130-400); RBC 4.01 m/cumm (4.00-5.20); RBC Distribution Width 12.9 % (11.7-14.6); White Blood Cell Count 5.08 k/cumm (4.4-10.8)
[2018-06-11 07:42] LABS: Anion Gap 8.3 mmol/L (3-11); BUN 9 mg/dL (7-18); CO2 24.7 mmol/L (21.0-32.0); CREATININE 0.79 mg/dL (0.55-1.02); Calcium 8.3 mg/dL (8.5-10.1); Chloride 112 mmol/L (98-107); Glucose 74 mg/dL (70-100); Potassium 3.6 mmol/L (3.5-5.1); Sodium 145 mmol/L (136-145)
[2018-06-11 07:47] LABS: Magnesium 1.7 mg/dL (1.8-2.4); Troponin I 0.02 ng/mL (0.00-0.06)
[2018-06-11] MEDS: Enoxaparin 40 MG/0.4 ML SYR SC (09:28)
[2018-06-11] MEDS: Multivitamin TAB 1 TAB PO (09:29)
[2018-06-11] MEDS: Aspirin 81 MG CHEW PO (09:29)
[2018-06-11] MEDS: Normal Saline 500 ML 200 ML IV (09:29)
[2018-06-11] MEDS: Dexlansoprazole 30 MG CAP PO ×2 (09:29→19:35)
[2018-06-11] MEDS: Propranolol 60 MG CAPCR PO (09:29)
[2018-06-11] MEDS: DOXYCYCLINE 100 MG in Normal Saline 100 ML IVPB ×2 (09:29→20:16)
[2018-06-11] MEDS: Escitalopram 20 MG TAB 30 MG PO (09:29)
--- NOTE | 2018-06-11 10:06 | PDOC.CMPRO ---
- If Service Date Differs Date of service: 06/11/18 Time of Service: 10:06 Care Management Progress Note S/O: Philomena is lying in bed watching TV when this content writer visits this morning. Her family is in the room with her. Philomena states that she is feeling fine when CM asks how she is doing and how her night went. Philomena will potentially need placement at [facility] for psychiatric stabilization prior to returning home. CM to assist with facilitating [facility] when closer to [place]. A: 72 y/o female admitted 06/09/18 for CAP P: Philomena will potentially need placement at [facility] for psychiatric stabilization prior to returning home. She at baseline resides with her sister and sisters family, therefore would return there with home health RN/PT/OT services once stabilized. She will also resume [place] 3x/week. Family to transport.
--- NOTE | 2018-06-11 10:59 | PT.INTREAT ---
Date of service: 06/11/18 Time of Service: 10:59 PT Notes 06/11/18 SUBJECTIVE: Pt stating she is doing well. No pain complaints. OBJECTIVE: Pt just returning to bed. She is agreeable to bed exercises. GAIT/TRANSFERS: Not observed due to just returning to bed. THEREX: LE/UE strengthening exercises performed in supine position. Tolerates active SLR bilaterally. See flow sheet. ASSESSMENT: Unable to observe gait today. Pt has just returned from being up to commode. She tolerates her strengthening exercises well and follows directions without difficulty. PLAN: Continue current POC progressing toward's established goals. Treatment time: 10 minutes [id number] Georgie Vargas PTA
--- NOTE | 2018-06-11 11:02 | PTTR_ITS ---
Date of service: 06/11/18 Time of Service: 10:59 PT Notes 06/11/18 SUBJECTIVE: Pt stating she is doing well. No pain complaints. OBJECTIVE: Pt just returning to bed. She is agreeable to bed exercises. GAIT/TRANSFERS: Not observed due to just returning to bed. THEREX: LE/UE strengthening exercises performed in supine position. Tolerates active SLR bilaterally. See flow sheet. ASSESSMENT: Unable to observe gait today. Pt has just returned from being up to commode. She tolerates her strengthening exercises well and follows directions without difficulty. PLAN: Continue current POC progressing toward's established goals. Treatment time: 10 minutes [id number] Georgie Vargas PTA
[2018-06-11] MEDS: Triamcinolone 0.1% CR 15 GM TUBE TP (12:10)
[2018-06-11] MEDS: Normal Saline Flush 10 ML SYR IVP (13:06)
--- NOTE | 2018-06-11 15:43 | W.PM.PROGNOT ---
Date of Service Date of service: 06/11/18 Time of Service: 15:43 Assessment and Plan (1) Chest pain: Current visit: Yes Status: Acute Episode of CP may be related to pneumonia vs. Musculoskeletal etiology. Troponin trended and negative, and ECHO normal without evidence of wall motion abnormalities. Continue to monitor. (2) Atrial flutter: Current visit: Yes Status: Acute New diagnosis, with patient now back in NSR. ECHO obtained and reviewed - essentially unremarkable. Already on BB. Discussed risks of anticoagulation given patient's history of Tardive Dyskinesia, Ambulatory Dysfunction, and multiple prior falls. Will hold off for now, and recommend repeat discussion as outpatient with PCP. (3) CAP (community acquired pneumonia): Current visit: Yes Status: Acute Failed therapy with Levofloxacin - however, in setting of dysphagia, Tardive Dyskinesia, and altered mental status - cannot rule out aspiration as etiology. Allergy to PCN noted. Continue current regimen of Aztreonam, Doxycycline, and Metronidazole, currently day #3. No Blood or Sputum Cultures obtained. Continue duonebs, antitussives on a prn basis. (4) Dysphagia, unspecified: Current visit: No Status: Chronic Assessed by Speech Therapy and on modified diet. Antibiotic regimen includes coverage for aspiration pneumonia as well. (5) Tardive dyskinesia: Current visit: No Status: Chronic In patient with a history of schizophrenia and bipolar disorder, on antipsychotic medications chronically. Given worsening symptoms currently holding patient's antipsychotic therapy with Cariprazine, but continuing patient's Valbenazine. For psych consult on Wednesday, with potential plans for transfer to [facility] when medically stable for medication titration. (6) Type 2 diabetes mellitus: Current visit: No Status: Chronic Holding basal insulin in setting of prior hypoglycemia and continued (but slightly improved) oral intake. Continue ISS, and monitor blood sugar. (7) Hypothyroidism: Current visit: No Status: Chronic Continue replacement therapy. (8) Hypertension: Current visit: No Status: Chronic Continue BB therapy. (9) Schizophrenia: Current visit: Yes Status: Chronic (10) DVT prophylaxis: Current visit: Yes Status: Acute Continue SC Lovenox. Also on PPI for GI Prophylaxis. (11) Advance directive discussed with patient: Current visit: Yes Status: Acute DNR/DNI. Subjective Interval history since last seen: 72 year old woman with a prior history of Schizophrenia, Bipolar Disorder, and Tardive Dyskinesia, admitted from [facility] Emergency Department with a diagnosis of pneumonia. Ms. Dominguezas a prior history of Bipolar disorder, Schizophrenia, Tardive Dyskinesia, and prior episodes of psychosis. Her other diagnosis include Hypothyroidism, HTN, dyslipidemia, DM, GERD, and ARMAND intolerant of CPAP. She also has a history of ambulatory dysfunction and dysphagia. The patient was seen on the day of her admission at the mental health clinic, and sent in to the ED. She had apparently been inititated on a new antipsychotic medication Vraylar (Cariprazine) recently, and since has developed worsening tremors and symptoms of her pre-existing diagnosis of Tardive Dyskinesia. Her symptoms were bad enough that she required assistance with all of her ADLs, whereas previously she used to be relatively independent and use a cane and sometimes a walker. She was also noted to have worsening weakness, and difficulty with swallowing liquids per history from her sister. Other symptoms included worsening speech and poor PO intake. Given her worsening falls at home she had also been living with her sister who is providing as her caregiver. Of note, the patient had also been diagnosed with CAP on 05/18, and discharged with Levofloxacin from the ED. Work-up at time of her presentation prior to admission revealed a LLL Pneumonia, which appears changed from her prior recent imaging. At that time she was referred for admission for further evaluation and treatment. Following her admission there was question of a potential facial droop, with work-up that included a negative MRI/MRA of the brain, Carotid Ultrasound, and ECHO. Her infection appears to be under control, and she has remained afebrile. No other events reported overnight. Exam Narrative Exam Narrative: General: Patient appears comfortable, pleasant, awake and alert, NAD. Appears tremulous with lip smacking and abnormal tongue movements. Neck: Supple CV: Regular, nontachycardic, S1S2, No rubs, murmurs, or gallops. Pulmonary: Clear to auscultation bilaterally with mild expiratory rhonchi, no crackles or wheezing. Abdomen: + Bowel Sounds, soft, nontender, nondistended Vascular: No lower extremity edema Psych: Normal mood and affect. Objective Objective Clinical Data: Abnormal lab results 06/11/18 06/11/18 Range/Units 06:40 06:40 Chloride 112 H (98-107) mmol/L Calcium 8.3 L (8.5-10.1) mg/dL Magnesium 1.7 L (1.8-2.4) mg/dL Vital Signs Temperature 36.3 C L 06/11/18 11:39 Temperature Source Tympanic 06/11/18 11:39 Pulse 78 06/11/18 11:39 Pulse Rhythm Regular 06/11/18 03:29 Pulse 69 06/09/18 17:43 Respiratory Rate 18 06/11/18 11:39 Respiratory Effort Non-Labored 06/11/18 03:29 Respiratory Depth Normal 06/11/18 03:29 Respiratory Pattern Normal 06/11/18 03:29 Blood Pressure 116/65 06/11/18 11:39 Blood Pressure Mean 71 06/09/18 17:43 Blood Pressure Position Sitting 06/09/18 13:34 Pulse Oximetry 98 06/11/18 11:39 Oxygen Delivery Method Room Air 06/11/18 11:39 Oxygen Flow Rate 0 06/11/18 11:39 Pain Level 0 06/11/18 11:39 Comment 06/10/18 17:30 Intake & Output 06/10/18 06/11/18 06/11/18 23:59 11:59 23:59 Intake Total 1894.167 / 4466.667 2075.833 / 2559.167 483.334 / 2559.167 Output Total 200 / 950 2150 / 2150 Balance 1694.167 / 3516.667 -74.167 / 409.167 483.334 / 409.167 Weight 96.247 kg Intake: IV 1644.167 / 3736.667 1955.833 / 2199.167 243.334 / 2199.167 Oral 250 / 730 120 / 360 240 / 360 Output: Urine 200 / 950 2150 / 2150 Other: Urine Color Straw Yellow Yellow Urine Appearance Clear Clear Clear Urine Odor Strong None None Comment Void x1 in the bedside commode. Mixed with stool. Unknown Stool Size Moderate Small Moderate Stool Characteristics Soft Soft Soft Liquid Formed Brown Brown Voiding Methods Bedside Commode Bedside Commode Bedside Commode Laboratory Results WBC 5.08 k/cumm (4.4-10.8) D 06/11/18 06:40 RBC 4.01 m/cumm (4.00-5.20) 06/11/18 06:40 Hgb 12.3 g/dL (12.0-15.5) 06/11/18 06:40 Hct 37.5 % (36.0-46.0) 06/11/18 06:40 MCV 93.5 fL (80-95) 06/11/18 06:40 MCH 30.7 pg (27.0-33.0) 06/11/18 06:40 MCHC 32.8 g/dL (32.0-36.0) 06/11/18 06:40 RDW 12.9 % (11.7-14.6) 06/11/18 06:40 Plt Count 140 x1000/uL (130-400) 06/11/18 06:40 MPV 10.9 fL (8.0-11.0) 06/11/18 06:40 Immature Gran % 0.0 06/11/18 06:40 Neutrophils % 34.8 06/11/18 06:40 Lymphocytes % 49.4 06/11/18 06:40 Atypical Lymphs % 7 06/10/18 06:50 Monocytes % 7.9 06/11/18 06:40 Eosinophils % 7.7 06/11/18 06:40 Basophils % 0.2 06/11/18 06:40 Absolute Neutrophils 1.77 k/cumm (1.2-6.7) 06/11/18 06:40 Absolute Lymphocytes 2.51 k/cumm (1.2-3.4) 06/11/18 06:40 Absolute Monocytes 0.40 k/cumm (0.11-0.7) 06/11/18 06:40 Absolute Eosinophils 0.39 k/cumm (0.0-0.7) 06/11/18 06:40 Absolute Basophils 0.01 k/cumm (0.0-0.2) 06/11/18 06:40 Differential Comment Manual differential 06/10/18 06:50 RBC Morphology Normal 06/10/18 06:50 Sodium 145 mmol/L (136-145) 06/11/18 06:40 Potassium 3.6 mmol/L (3.5-5.1) 06/11/18 06:40 Chloride 112 mmol/L (98-107) H 06/11/18 06:40 Carbon Dioxide 24.7 mmol/L (21.0-32.0) 06/11/18 06:40 Anion Gap 8.3 mmol/L (3-11) 06/11/18 06:40 BUN 9 mg/dL (7-18) 06/11/18 06:40 Creatinine 0.79 mg/dL (0.55-1.02) 06/11/18 06:40 Estimated GFR/1.73 m2 >= 60.00 (mL/min/1.73m2) 06/11/18 06:40 Glucose 74 mg/dL (70-100) 06/11/18 06:40 Calcium 8.3 mg/dL (8.5-10.1) L 06/11/18 06:40 Magnesium 1.7 mg/dL (1.8-2.4) L 06/11/18 06:40 Total Bilirubin 0.6 mg/dL (0.2-1.0) 06/09/18 14:15 AST 27 U/L (15-37) 06/09/18 14:15 ALT 21 U/L (12-78) 06/09/18 14:15 Alkaline Phosphatase 84 U/L (46-116) 06/09/18 14:15 Creatine Kinase 39 U/L (26-192) 06/09/18 14:15 Troponin I 0.02 ng/mL (0.00-0.06) 06/11/18 06:40 Total Protein 7.6 g/dL (6.4-8.2) 06/09/18 14:15 Albumin 3.4 g/dL (3.4-5.0) 06/09/18 14:15 TSH 0.84 uIU/mL (0.358-3.74) 06/09/18 14:15 Urine Color Yellow (Yellow) 06/09/18 14:45 Urine Clarity Clear 06/09/18 14:45 Urine pH 6.0 (5-8) 06/09/18 14:45 Ur Specific [place] 1.015 (1.005-1.025) 06/09/18 14:45 Urine Protein Negative mg/dL (Negative) 06/09/18 14:45 Urine Ketones Negative mg/dL (Negative) 06/09/18 14:45 Urine Blood Negative (Negative) 06/09/18 14:45 Urine Nitrite Negative (Negative) 06/09/18 14:45 Urine Bilirubin Negative (Negative) 06/09/18 14:45 Urine Urobilinogen 0.2 EU/dL (Up TO 0.2) 06/09/18 14:45 Ur Leukocyte Esterase Negative (Negative) 06/09/18 14:45 Urine Glucose Negative mg/dL (Negative) 06/09/18 14:45
[2018-06-11] MEDS: clonazePAM 0.5 MG TAB PO (21:35)
[2018-06-11] MEDS: Simvastatin 20 MG TAB PO (21:35)
[2018-06-12] VITALS (9 sets, daily range): BP systolic 108–121; BP diastolic 69–82; PULSE 63–84; RESP 16–20; TEMP 36.3–36.8; O2SAT 93–98
[2018-06-12] MEDS: Normal Saline Flush 10 ML SYR IVP ×5 (02:20→19:49)
[2018-06-12] MEDS: metroNIDAZOLE 500 MG/100 ML BAG 100 MG IVPB ×3 (02:20→17:19)
[2018-06-12] MEDS: AZTREONAM 2,000 MG in Normal Saline 100 ML 200 MG IVPB ×3 (04:01→19:49)
[2018-06-12] MEDS: Levothyroxine 112 MCG TAB PO (06:06)
[2018-06-12 06:57] LABS: Abs Immature Grans 0.01 k/cumm (0.0-0.09); Absolute Basophil Count 0.01 k/cumm (0.0-0.2); Absolute Eosinophil Count 0.43 k/cumm (0.0-0.7); Absolute Lymphocyte Count 2.62 k/cumm (1.2-3.4); Absolute Monocyte Count 0.47 k/cumm (0.11-0.7); Absolute Neutrophil Count 1.56 k/cumm (1.2-6.7); Basophils % 0.2; Eosinophils % 8.4; HCT 38.1 % (36.0-46.0); HGB 12.7 g/dL (12.0-15.5); Immature Grans % 0.2; Lymphocytes % 51.4; Mean Corp. HGB Concentration 33.3 g/dL (32.0-36.0); Mean Corpuscular Hemoglobin 30.8 pg (27.0-33.0); Mean Corpuscular Volume 92.5 fL (80-95); Mean Platelet Volume 10.9 fL (8.0-11.0); Monocytes % 9.2; Neutrophils % 30.6; Platelet Count 143 x1000/uL (130-400); RBC 4.12 m/cumm (4.00-5.20); RBC Distribution Width 12.8 % (11.7-14.6)
[2018-06-12 07:09] LABS: Anion Gap 7.9 mmol/L (3-11); BUN 8 mg/dL (7-18); CO2 26.1 mmol/L (21.0-32.0); CREATININE 0.79 mg/dL (0.55-1.02); Calcium 8.7 mg/dL (8.5-10.1); Chloride 111 mmol/L (98-107); Glucose 88 mg/dL (70-100); Magnesium 1.5 mg/dL (1.8-2.4); Potassium 3.6 mmol/L (3.5-5.1); Sodium 145 mmol/L (136-145)
--- NOTE | 2018-06-12 08:05 | PDOC.CMPRO ---
- If Service Date Differs Date of service: 06/12/18 Time of Service: 08:05 Care Management Progress Note S/O: Philomena is lying in bed when this scientific writer visits this morning, she is watching TV and states that she is doing good. Philomena continues to receive IV antibiotics. She will have a psychiatric consult tomorrow, and will potentially need short term placement at [facility] for psychiatric stabilization prior to returning home. Philomena's sister Chantal has been in frequently and offers support. A: 72 y/o female admitted 06/09/18 for CAP P: Philomena will potentially need placement at [facility] (formerly [facility] for psychiatric stabilization prior to returning home. She at baseline resides with her sister and sisters family, therefore would return there with home health RN/PT/OT services once stabilized. She will also resume [place] 3x/week. Family to transport.
--- NOTE | 2018-06-12 08:39 | PT.INTREAT ---
Date of service: 06/12/18 Time of Service: 08:39 PT Notes 06/12/18 SUBJECTIVE: No complaints of pain. She is hoping her daughter will visit again today. OBJECTIVE: Supine in bed. Agreeable to PT treatment. TRANSFERS Supine to sit: SBA Sit to stand: CGA Stand to sit: CGA GAIT Device: 4WW Weight bearing: Full Assist: CGA Distance: 10' Deviation: Pt did not want to walk any further although I feel she would be capable of doing so. THEREX: Seated UE/LE strengthening exercises performed as noted on her flow sheet. ASSESSMENT: Tolerates PT well today with improvement in bed mobility and transfers. Cueing required for hand placement to walker. She did not wish to walk any further distance today with me. PLAN: Continue current POC progressing gait distance and strengthening as she is able to tolerate. Treatment time: 20 minutes [id number] Georgie Vargas, WINDOWS SYSTEM ADMIN
--- NOTE | 2018-06-12 08:42 | PTTR_ITS ---
Date of service: 06/12/18 Time of Service: 08:39 PT Notes 06/12/18 SUBJECTIVE: No complaints of pain. She is hoping her daughter will visit again today. OBJECTIVE: Supine in bed. Agreeable to PT treatment. TRANSFERS Supine to sit: SBA Sit to stand: CGA Stand to sit: CGA GAIT Device: 4WW Weight bearing: Full Assist: CGA Distance: 10' Deviation: Pt did not want to walk any further although I feel she would be capable of doing so. THEREX: Seated UE/LE strengthening exercises performed as noted on her flow sh eet. ASSESSMENT: Tolerates PT well today with improvement in bed mobility and transfers. Cueing required for hand placement to walker. She did not wish to walk any further distance today with me. PLAN: Continue current POC progressing gait distance and strengthening as she is able to tolerate. Treatment time: 20 minutes [id number] Georgie Vargas, [employer] SOFTWARE DEVELOPER
[2018-06-12] MEDS: Enoxaparin 40 MG/0.4 ML SYR SC (09:34)
[2018-06-12] MEDS: Propranolol 60 MG CAPCR PO (09:35)
[2018-06-12] MEDS: Mylanta Suspension 30 ML CUP PO (09:35)
[2018-06-12] MEDS: Multivitamin TAB 1 TAB PO (09:35)
[2018-06-12] MEDS: Triamcinolone 0.1% CR 15 GM TUBE TP (09:35)
[2018-06-12] MEDS: Dexlansoprazole 30 MG CAP PO ×2 (09:35→19:50)
[2018-06-12] MEDS: Aspirin 81 MG CHEW PO (09:35)
[2018-06-12] MEDS: Potassium Chloride 20 MEQ TABCR 40 MEQ PO (09:35)
[2018-06-12] MEDS: Escitalopram 20 MG TAB 30 MG PO (09:35)
[2018-06-12] MEDS: DOXYCYCLINE 100 MG in Normal Saline 100 ML IVPB ×2 (09:36→20:48)
[2018-06-12] MEDS: MAGNESIUM SULFATE 2 GM/50 ML BAG IVPB (10:53)
[2018-06-12] MEDS: Normal Saline 500 ML 30 ML IV (10:54)
--- NOTE | 2018-06-12 15:48 | W.PM.PROGNOT ---
Date of Service Date of service: 06/12/18 Time of Service: 15:48 Assessment and Plan (1) Atrial flutter: Current visit: Yes Status: Acute New diagnosis, with patient now back in NSR. ECHO obtained and reviewed - essentially unremarkable. Already on BB. Discussed risks of anticoagulation given patient's history of Tardive Dyskinesia, Ambulatory Dysfunction, and multiple prior falls. Will hold off for now, and recommend repeat discussion as outpatient with PCP. (2) CAP (community acquired pneumonia): Current visit: Yes Status: Acute Failed therapy with Levofloxacin - however, in setting of dysphagia, Tardive Dyskinesia, and altered mental status - cannot rule out aspiration as etiology. Allergy to PCN noted. Continue current regimen of Aztreonam, Doxycycline, and Metronidazole, currently day #4. Unfortunately no Blood or Sputum Cultures obtained. Continue duonebs, antitussives on a prn basis. (3) Dysphagia, unspecified: Current visit: No Status: Chronic Assessed by Speech Therapy and on modified diet. Antibiotic regimen includes coverage for aspiration pneumonia as well. (4) Tardive dyskinesia: Current visit: No Status: Chronic In patient with a history of schizophrenia and bipolar disorder, on antipsychotic medications chronically. Given worsening symptoms currently holding patient's antipsychotic therapy with Cariprazine, but continuing patient's Valbenazine. For psych consult on Wednesday, with potential plans for transfer [facility] when medically stable for medication titration. (5) Type 2 diabetes mellitus: Current visit: No Status: Chronic Holding basal insulin in setting of prior hypoglycemia and continued (but slightly improved) oral intake. Continue ISS, and monitor blood sugar - currently in the 70-90's. (6) Hypothyroidism: Current visit: No Status: Chronic Continue replacement therapy. (7) Hypertension: Current visit: No Status: Chronic Continue BB therapy. (8) Schizophrenia: Current visit: Yes Status: Chronic (9) Chest pain: Current visit: Yes Status: Acute Episode of CP may be related to pneumonia vs. Musculoskeletal etiology. Troponin trended and negative, and ECHO normal without evidence of wall motion abnormalities. No further complaints of CP. (10) DVT prophylaxis: Current visit: Yes Status: Acute Continue SC Lovenox. Also on PPI for GI Prophylaxis. (11) Advance directive discussed with patient: Current visit: Yes Status: Acute DNR/DNI. Subjective Interval history since last seen: 72 year old woman with a prior history of Schizophrenia, Bipolar Disorder, and Tardive Dyskinesia, admitted from [facility] Emergency Department with a diagnosis of pneumonia. Ms. Dominguezas a prior history of Bipolar disorder, Schizophrenia, Tardive Dyskinesia, and prior episodes of psychosis. Her other diagnosis include Hypothyroidism, HTN, dyslipidemia, DM, GERD, and ARMAND intolerant of CPAP. She also has a history of ambulatory dysfunction and dysphagia. The patient was seen on the day of her admission at the mental health clinic, and sent in to the ED. She had apparently been inititated on a new antipsychotic medication Vraylar (Cariprazine) recently, and since has developed worsening tremors and symptoms of her pre-existing diagnosis of Tardive Dyskinesia. Her symptoms were bad enough that she required assistance with all of her ADLs, whereas previously she used to be relatively independent and use a cane and sometimes a walker. She was also noted to have worsening weakness, and difficulty with swallowing liquids per history from her sister. Other symptoms included worsening speech and poor PO intake. Given her worsening falls at home she had also been living with her sister who is providing as her caregiver. Of note, the patient had also been diagnosed with CAP on 05/18, and discharged with Levofloxacin from the ED. Work-up at time of her presentation prior to admission revealed a LLL Pneumonia, which appears changed from her prior recent imaging. At that time she was referred for admission for further evaluation and treatment. Following her admission there was question of a potential facial droop, with work-up that included a negative MRI/MRA of the brain, Carotid Ultrasound, and ECHO. Her infection appears to be under control, and she has remained afebrile. She has no complaints this morning. No other events reported overnight. Exam Narrative Exam Narrative: General: Patient appears comfortable, pleasant, awake and alert, NAD. Appears tremulous with b/l UE tremors, lip smacking, and abnormal tongue movements. Neck: Supple CV: Regular, nontachycardic, S1S2, No rubs, murmurs, or gallops. Pulmonary: Clear to auscultation bilaterally with mild expiratory rhonchi, no crackles or wheezing. Abdomen: + Bowel Sounds, soft, nontender, nondistended Vascular: No lower extremity edema Psych: Normal mood and affect. Objective Objective Clinical Data: Abnormal lab results 06/12/18 Range/Units 06:35 Chloride 111 H (98-107) mmol/L Magnesium 1.5 L (1.8-2.4) mg/dL Vital Signs Temperature 36.7 C 06/12/18 11:35 Temperature Source Tympanic 06/12/18 11:35 Pulse 71 06/12/18 11:35 Pulse Rhythm Regular 06/12/18 02:54 Pulse 69 06/09/18 17:43 Respiratory Rate 18 06/12/18 11:35 Respiratory Effort Non-Labored 06/12/18 02:54 Respiratory Depth Normal 06/12/18 02:54 Respiratory Pattern Normal 06/12/18 02:54 Blood Pressure 108/73 06/12/18 11:35 Blood Pressure Mean 71 06/09/18 17:43 Blood Pressure Position Sitting 06/09/18 13:34 Pulse Oximetry 93 L 06/12/18 11:35 Oxygen Delivery Method Room Air 06/12/18 11:35 Oxygen Flow Rate 0 06/12/18 11:35 Pain Level 0 06/12/18 07:35 Comment 06/10/18 17:30 Intake & Output 06/11/18 06/12/18 06/12/18 23:59 11:59 23:59 Intake Total 1063.334 / 3139.167 640.5 / 1050.5 410 / 1050.5 Output Total 700 / 2850 1200 / 1650 450 / 1650 Balance 363.334 / 289.167 -559.5 / -599.5 -40 / -599.5 Weight 93.35 kg Intake: IV 703.334 / 2659.167 520.5 / 810.5 290 / 810.5 Oral 360 / 480 120 / 240 120 / 240 Output: Urine 700 / 2850 1200 / 1650 450 / 1650 Other: Urine Color Pale Yellow Yellow Urine Appearance Clear Clear Urine Odor None Comment Unknown Stool Size Moderate Stool Characteristics Soft Voiding Methods Bedside Commode Bedside Commode Bedside Commode Laboratory Results WBC 5.10 k/cumm (4.4-10.8) 06/12/18 06:35 RBC 4.12 m/cumm (4.00-5.20) 06/12/18 06:35 Hgb 12.7 g/dL (12.0-15.5) 06/12/18 06:35 Hct 38.1 % (36.0-46.0) 06/12/18 06:35 MCV 92.5 fL (80-95) 06/12/18 06:35 MCH 30.8 pg (27.0-33.0) 06/12/18 06:35 MCHC 33.3 g/dL (32.0-36.0) 06/12/18 06:35 RDW 12.8 % (11.7-14.6) 06/12/18 06:35 Plt Count 143 x1000/uL (130-400) 06/12/18 06:35 MPV 10.9 fL (8.0-11.0) 06/12/18 06:35 Immature Gran % 0.2 06/12/18 06:35 Neutrophils % 30.6 06/12/18 06:35 Lymphocytes % 51.4 06/12/18 06:35 Atypical Lymphs % 7 06/10/18 06:50 Monocytes % 9.2 06/12/18 06:35 Eosinophils % 8.4 06/12/18 06:35 Basophils % 0.2 06/12/18 06:35 Absolute Neutrophils 1.56 k/cumm (1.2-6.7) 06/12/18 06:35 Absolute Lymphocytes 2.62 k/cumm (1.2-3.4) 06/12/18 06:35 Absolute Monocytes 0.47 k/cumm (0.11-0.7) 06/12/18 06:35 Absolute Eosinophils 0.43 k/cumm (0.0-0.7) 06/12/18 06:35 Absolute Basophils 0.01 k/cumm (0.0-0.2) 06/12/18 06:35 Differential Comment Manual differential 06/10/18 06:50 RBC Morphology Normal 06/10/18 06:50 Sodium 145 mmol/L (136-145) 06/12/18 06:35 Potassium 3.6 mmol/L (3.5-5.1) 06/12/18 06:35 Chloride 111 mmol/L (98-107) H 06/12/18 06:35 Carbon Dioxide 26.1 mmol/L (21.0-32.0) 06/12/18 06:35 Anion Gap 7.9 mmol/L (3-11) 06/12/18 06:35 BUN 8 mg/dL (7-18) 06/12/18 06:35 Creatinine 0.79 mg/dL (0.55-1.02) 06/12/18 06:35 Estimated GFR/1.73 m2 >= 60.00 (mL/min/1.73m2) 06/12/18 06:35 Glucose 88 mg/dL (70-100) 06/12/18 06:35 Calcium 8.7 mg/dL (8.5-10.1) 06/12/18 06:35 Magnesium 1.5 mg/dL (1.8-2.4) L 06/12/18 06:35 Total Bilirubin 0.6 mg/dL (0.2-1.0) 06/09/18 14:15 AST 27 U/L (15-37) 06/09/18 14:15 ALT 21 U/L (12-78) 06/09/18 14:15 Alkaline Phosphatase 84 U/L (46-116) 06/09/18 14:15 Creatine Kinase 39 U/L (26-192) 06/09/18 14:15 Troponin I 0.02 ng/mL (0.00-0.06) 06/11/18 06:40 Total Protein 7.6 g/dL (6.4-8.2) 06/09/18 14:15 Albumin 3.4 g/dL (3.4-5.0) 06/09/18 14:15 TSH 0.84 uIU/mL (0.358-3.74) 06/09/18 14:15 Urine Color Yellow (Yellow) 06/09/18 14:45 Urine Clarity Clear 06/09/18 14:45 Urine pH 6.0 (5-8) 06/09/18 14:45 Ur Specific [place] 1.015 (1.005-1.025) 06/09/18 14:45 Urine Protein Negative mg/dL (Negative) 06/09/18 14:45 Urine Ketones Negative mg/dL (Negative) 06/09/18 14:45 Urine Blood Negative (Negative) 06/09/18 14:45 Urine Nitrite Negative (Negative) 06/09/18 14:45 Urine Bilirubin Negative (Negative) 06/09/18 14:45 Urine Urobilinogen 0.2 EU/dL (Up TO 0.2) 06/09/18 14:45 Ur Leukocyte Esterase Negative (Negative) 06/09/18 14:45 Urine Glucose Negative mg/dL (Negative) 06/09/18 14:45
--- NOTE | 2018-06-12 15:55 | W.INDIABCONS ---
Date of service: 06/12/18 Time of Service: 15:55 Diabetes Inpatient Consult DESCRIPTION/ASSESSMENT: Appreciate diabetes consult for Philomena Adames who is hospitalized with pneumonia. A1c 8.4 BMI 35 Philomena has had blood sugars 02=933 since admission taking half her usual 60u Glargine. She also receives sensitive insulin correction. She is eating 0-54 grams carbohydrate at a meal. Attempted to visit Philomena but she did not have family with her and was busy with nursing staff. INTERVENTION: Philomena maintains excellent glycemic control this hospitalization despite illness and less insulin than at home. No suggestions offered at this time. GIven that she is going to a skilled care facility, no intervention offered at this time. PLAN: Will follow blood sugars and check in with family prior to discharge if possible. Time Spent in Nutritional Counseling and Treatment: 0 minutes face to face inpatient
--- NOTE | 2018-06-12 16:01 | DM INPTCON_ITS ---
Date of service: 06/12/18 Time of Service: 15:55 Diabetes Inpatient Consult DESCRIPTION/ASSESSMENT: Appreciate diabetes consult for Philomena Adames who is hospitalized with pneumonia. A1c 8.4 BMI 35 Philomena has had blood sugars 62=280 since admission taking half her usual 60u Glargine. She also receives sensitive insulin correction. She is eating 0-54 grams carbohydrate at a meal. Attempted to visit Philomena but she did not have family with her and was busy with nursing staff. INTERVENTION: Philomena maintains excellent glycemic control this hospitalization despite illness and less insulin than at home. No suggestions offered at this time. GIven that she is going to a skilled care facility, no intervention offered at this time. PLAN: Will follow blood sugars and check in with family prior to discharge if possible. Time Spent in Nutritional Counseling and Treatment: 0 minutes face to face inpatient
[2018-06-12] MEDS: Simvastatin 20 MG TAB PO (21:54)
[2018-06-12] MEDS: clonazePAM 0.5 MG TAB PO (21:54)
[2018-06-13] VITALS (10 sets, daily range): BP systolic 109–145; BP diastolic 58–76; PULSE 61–77; RESP 14–21; TEMP 36–36.9; O2SAT 94–98
[2018-06-13] MEDS: metroNIDAZOLE 500 MG/100 ML BAG 100 MG IVPB ×3 (01:42→18:47)
[2018-06-13] MEDS: Normal Saline Flush 10 ML SYR IVP (01:43)
[2018-06-13] MEDS: AZTREONAM 2,000 MG in Normal Saline 100 ML 200 MG IVPB ×3 (03:17→20:04)
[2018-06-13] MEDS: Levothyroxine 112 MCG TAB PO (06:47)
[2018-06-13 07:04] LABS: Abs Immature Grans 0.01 k/cumm (0.0-0.09); Absolute Basophil Count 0.01 k/cumm (0.0-0.2); Absolute Eosinophil Count 0.39 k/cumm (0.0-0.7); Absolute Lymphocyte Count 2.73 k/cumm (1.2-3.4); Absolute Monocyte Count 0.62 k/cumm (0.11-0.7); Absolute Neutrophil Count 2.07 k/cumm (1.2-6.7); Basophils % 0.2; Eosinophils % 6.7; HCT 40.2 % (36.0-46.0); HGB 13.5 g/dL (12.0-15.5); Immature Grans % 0.2; Lymphocytes % 46.8; Mean Corp. HGB Concentration 33.6 g/dL (32.0-36.0); Mean Corpuscular Volume 92.4 fL (80-95); Monocytes % 10.6; Neutrophils % 35.5; Platelet Count 137 x1000/uL (130-400); RBC 4.35 m/cumm (4.00-5.20); RBC Distribution Width 13.1 % (11.7-14.6); White Blood Cell Count 5.83 k/cumm (4.4-10.8)
[2018-06-13 07:23] LABS: Anion Gap 8.8 mmol/L (3-11); BUN 9 mg/dL (7-18); CO2 26.2 mmol/L (21.0-32.0); CREATININE 0.76 mg/dL (0.55-1.02); Calcium 8.9 mg/dL (8.5-10.1); Chloride 109 mmol/L (98-107); Glucose 103 mg/dL (70-100); Magnesium 1.7 mg/dL (1.8-2.4); Potassium 4.3 mmol/L (3.5-5.1); Sodium 144 mmol/L (136-145)
[2018-06-13] MEDS: DOXYCYCLINE 100 MG in Normal Saline 100 ML IVPB ×2 (09:40→20:49)
[2018-06-13] MEDS: Enoxaparin 40 MG/0.4 ML SYR SC (09:45)
[2018-06-13] MEDS: Escitalopram 20 MG TAB 30 MG PO (09:46)
[2018-06-13] MEDS: Multivitamin TAB 1 TAB PO (09:46)
[2018-06-13] MEDS: Dexlansoprazole 30 MG CAP PO ×2 (09:47→19:37)
[2018-06-13] MEDS: Aspirin 81 MG CHEW PO (09:47)
[2018-06-13] MEDS: Magnesium Oxide 400 MG TAB PO (09:47)
[2018-06-13] MEDS: Propranolol 60 MG CAPCR PO (09:47)
[2018-06-13] MEDS: Triamcinolone 0.1% CR 15 GM TUBE TP (09:47)
--- NOTE | 2018-06-13 11:00 | OT.INTREAT ---
Date of service: 06/13/18 Time of Service: 09:20 Occupational Therapy Notes Occupational Therapy Inpatient Treatment Note Date: 06/13/18 PRECAUTIONS: Fall, Standard SUBJECTIVE: Pt was sitting in chair when OT arrived. Pt states that she would like to get washed up and that she is agreeable to OT session. OBJECTIVE: PAIN:No c/o pain FUNCTIONAL MOBILITY Sit-stand: CGA, FWW Stand-sit: CGA, FWW BATHING: Sitting in chair with max (A) set up Upper Body: Min vc for (B) UE, (I) abdomen, max (A) back, mod (A) hair as pt was able to functionally reach her head and help with hair washing at todays session. Lower Body: Pt was able to (I) wash to knees, She reports that she is unable to reach her lower legs and requires max (A) for (B) below her legs and (B) feet. DRESSING: Sitting in chair Upper Extremity: min (A) donning and doffing [facility] gown Lower Extremity: max (A) donning and doffing (B) socks, OT educated pt on sock aid in the sitting position, pt was able to demonstrate this with fair technique. ASSESSMENT/PLAN: Pt was able to demonstrate use of sock aid with fair technique. Functionally in the sitting position she was able to perform her bathing routine with increased (I). Pt would benefit from continued skilled OT intervention for increased (I) in ADLs, education on energy conservation and training in adaptive equipment as needed. TREATMENT CODES/TIME: [id number], 35 minutes (09:20) [facility]
--- NOTE | 2018-06-13 11:07 | OTTR_ITS ---
Date of service: 06/13/18 Time of Service: 09:20 Occupational Therapy Notes Occupational Therapy Inpatient Treatment Note Date: 06/13/18 PRECAUTIONS: Fall, Standard SUBJECTIVE: Pt was sitting in chair when OT arrived. Pt states that she would like to get washed up and that she is agreeable to OT session. OBJECTIVE: PAIN:No c/o pain FUNCTIONAL MOBILITY Sit-stand: CGA, FWW Stand-sit: CGA, FWW BATHING: Sitting in chair with max (A) set up Upper Body: Min vc for (B) UE, (I) abdomen, max (A) back, mod (A) hair as pt was able to functionally reach her head and help with hair washing at todays session. Lower Body: Pt was able to (I) wash to knees, She reports that she is unable to reach her lower legs and requires max (A) for (B) below her legs and (B) feet. DRESSING: Sitting in chair Upper Extremity: min (A) donning and doffing [facility] gown Lower Extremity: max (A) donning and doffing (B) socks, OT educated pt on sock aid in the sitting position, pt was able to demonstrate this with fair technique. ASSESSMENT/PLAN: Pt was able to demonstrate use of sock aid with fair technique. Functionally in the sitting position she was able to perform her bathing routine with increased (I). Pt would benefit from continued skilled OT intervention for increased (I) in ADLs, education on energy conservation and training in adaptive equipment as needed. TREATMENT CODES/TIME: [id number], 35 minutes (09:20) [facility]
--- NOTE | 2018-06-13 11:46 | W.SPEECHPG ---
Date of service: 06/13/18 Time of Service: 11:15 Speech Therpy Note Note: SUBJECTIVE Patient (pt) reclined in bed, awake & greets me with good direct eye contact. OBJECTIVE - T: 36.4 - O2 sat: 94% on RA - LS: CTA-B in the presence of ABX - Pt had to have whole pills with a liquid wash due to being extended release; pt tolerated this well. - Meal % for 06/12/18: Breakfast: bites; Lunch: 25%; Supper: 50% - Toleration of Puree foods thus far. Pt states that she does not like the style of sippy cup that staff presented to her. Demonstration accuracy of independent use of this sippy cup: 100%. Swallowing of Honey-thick liquid in this cup: good bolus control, mildly delayed posterior oral transit, no arlene s/s aspiration/penetration (A/P), oral clearance 100%, no oral escape. Suggested pt ask kitchen staff if they have any other styles, which she agreed to do. Pt trialed on intake of Llano-thick liquid with use of effortful swallow strategy. Pt showed immediate arlene s/s A/P. Pt trialed on swallow exercises. Demonstration accuracy: a) Oral motor ex: 10% b) Tongue-base ex: 20% Pt shows no spontaneous use of recommended compensatory swallow strategy (effortful swallow),but does use at 80% accuracy with verbal cueing. Instructed nursing in need for cueing of this strategy versus a chin-tuck. Also instructed nursing in recommendation of aided feeding. Instructed LEAD PROJECT ENGINEER in need for Honey vs. Llano liquid consistency. Spent time addressing questions regarding swallowing that her family had. Family member felt his questions were successfully answered. ASSESSMENT Pt continues to be at risk of aspiration with intake of thinner (Llano-thick) liquids, despite swallow strategy use. Tardive dyskinesia makes exercise performance difficult, limiting their beneficial impact on swallowing. PLAN Continue ST plan of care.
--- NOTE | 2018-06-13 12:15 | PNE_ITS ---
Date of service: 06/13/18 Time of Service: 11:15 Speech Therpy Note Note: SUBJECTIVE Patient (pt) reclined in bed, awake & greets me with good direct eye contact. OBJECTIVE - T: 36.4 - O2 sat: 94% on RA - LS: CTA-B in the presence of ABX - Pt had to have whole pills with a liquid wash due to being extended release; pt tolerated this well. - Meal % for 06/12/18: Breakfast: bites; Lunch: 25%; Supper: 50% - Toleration of Puree foods thus far. Pt states that she does not like the style of sippy cup that staff presented to her. Demonstration accuracy of independent use of this sippy cup: 100%. Swallowing of Honey-thick liquid in this cup: good bolus control, mildly delayed posterior oral transit, no arlene s/s aspiration/penetration (A/P), oral clearance 100%, no oral escape. Suggested pt ask kitchen staff if they have any other styles, which she agreed to do. Pt trialed on intake of Mcgregor-thick liquid with use of effortful swallow strategy. Pt showed immediate arlene s/s A/P. Pt trialed on swallow exercises. Demonstration accuracy: a) Oral motor ex: 10% b) Tongue-base ex: 20% Pt shows no spontaneous use of recommended compensatory swallow strategy (effortful swallow),but does use at 80% accuracy with verbal cueing. Instructed nursing in need for cueing of this strategy versus a chin-tuck. Also instructed nursing in recommendation of aided feeding. Instructed SECURITY DISPATCHER in need for Honey vs. Mcgregor liquid consistency. Spent time addressing questions regarding swallowing that her family had. Family member felt his questions were successfully answered. ASSESSMENT Pt continues to be at risk of aspiration with intake of thinner (Mcgregor-thick) liquids, despite swallow strategy use. Tardive dyskinesia makes exercise performance difficult, limiting their beneficial impact on swallowing. PLAN Continue ST plan of care.
--- NOTE | 2018-06-13 13:13 | W.PSYCHCONSU ---
Date of service: 06/13/18 Time of Service: 12:15 History of Present Illness Narrative: Primary Care Provider: Leti Franz MD Referred by: Maryse Jewell MD Information source: Patient, chart, rating scales Reason for consultation: Maryse Jewell MD requested psychiatric consultation for Philomena Adames to help with management of psychiatric medications in setting of acute and worsening tardive's dyskinesia. History Of Present Illness: Per H&P of 06/09/[address] Jewell: Ms Adames is a 72 year old female with PMHx of Bipolar 1 disorder, schizophrenia, psychosis, dyskinesia, among other multiple other medical problems, who was sent in today from the mental health clinic because there was a suspicion that the patient might be having a side effect of one of the medications she was on. The patient's sister is the history provider. She states that the patient was initiated on a new antipsychotic medication, vraylar 1.5 mg PO daily, about one and a half months ago. Ever since then her tremors of tardive dyskinesia got drastically worse, to the point that the patient needs assistance with all of her ADLs whereas she used to be relatively independent and use a cane and sometimes a walker. She became even weaker ever since she had pneumonia diagnosed in our ED on 05/18, at which point she was given levofloxacin. The patient's sister thinks it didn't help her very much. The patient seems to have difficulty with swallowing thin liquids now. She can't hold her cup. Her speech has been sometimes uninterpretable to her sister. For the last 2 days, her appetite and PO intake have been very poor. She has not had any hypoglycemic episodes, per sister. Additionally, sister states the patient has complained of depression and has been sleeping most of the day. The ED provider Dr Willis felt she might also have a L-sided facial droop. The patient's sister was not sure if she has noticed one. I am not entirely sure I see it. The patient states she does not have any pain, does feel a little short of breath, and has had a nonproductive cough. Her ER workup revealed a LLL pneumonia. She was treated with azithromycin in the ED due to her penicillin allergy and outpatient failure of levofloxacin. We were asked to admit the patient for further evaluation and care. Today Philomena accurately recounts her reason for hospitalization and states that she is feeling much better and can swallow more easily with thickened liquids. She denies any depressive, manic, psychotic or anxious symptoms. She reports sleep interrupted last night due to IV adjustment. She reports feeling ready to go home as she was able to walk down the hallway with PT today. Energy is much better. she reports that when she isn't on psychotropic medications she has auditory hallucinations. She reports that she remembers one of her medications being stopped because of elevated blood sugar. She is concerned about side effects of current medication worsening her movements. She isn't sure if Ingrezza is helping. She reports that controlling her mental health and her neurological symptoms are more important to her than avoiding adverse metabolic side effects that short her life. For example, she would prefer to be on medication that might elevate blood sugar if it is the best at controlling her symptoms of psychosis and tardive's dyskinesia such as Rexulti which she was on recently. Per Toya Shepherd NP, her prescriber at [facility], Philomena will become paranoid and with auditory hallucinations when off antipsychotis. Rexulti caused A1c to elevate to 11 but was most effective. Ingrezza was started recently thought to contribute to sedation but improved involuntary movements, but with reduction of dose from 80mg back to 40mg her movements worsened so dose was returned to 80mg. Vraylar 1.5mg was trialed most recently with much worsening of involuntary movements. Review of Dr Pulliam's neurology follow up note in the chart of 2018 indicates that Philomena had a rash from tetrabenazine and that clonazepam helped with tardive's dyskinesia and with tardive's akathisia. she notes that risperidone worsened tardive's with cogentin not providing much improvement. Abilify was tried previously in 2009 but not known why discontinued. Two previous neurologists have questioned if Philomena has developmental delay. Substances: none Safety: - current suicidal/homicidal/violent ideations: none - guns in home or access to weapons: none PAST PSYCHIATRIC HISTORY: Hospitalizations: not specifically reviewed Suicide attempts: not specifically reviewed Prescribers: Toya Shepherd NP at [facility] Medications: - risperidone - worsened Tardive's dyskinesia - Abilify 5mg - not certain why discontinued - Rexulti - effective and well tolerated but Therapist: REVIEW OF SYSTEMS: Constitutional: feels wells, no pain Cardiovascular: No chest pains or dizziness Respiratory: no cough or shortness of breath Musculoskeletal: +tremors, nonpainful, noticeable but not bothersome right now GI: No constipation, diarrhea, nausea, vomiting; appetite is fine Genitourinary: No dysuria, frequency of urination, hematuria Neurological: No weakness, seizures, numbness, tics, ataxia Psych: see above Endocrine: No cold or heat intolerance, polyuria, excessive thirst Hem/Lymph: No bruising, bleeding Allergies: see chart MENTAL STATUS EXAM: Constitutional: appears alert and awake, being fed lunch by doctor of nursing practice Attitude: cooperative Psychomotor: +tardive's affecting mouth, speech, hands, limbs. Speech: nonpressured, normal volume and prosody. significant articulation problems noted. Edentulous and mouth movements. Associations: no looseness Thought process: linear, logical, goal directed Thought content without psychosis, delusions, obsessions No suicidal or homicidal ideations Hallucinations denied Mood: good! Affect: pleasant, full, euthymic, calm Attention/Concentration: intact Judgment/insight: fair/fair Oriented x 4 Language appropriate to age and education Fund of knowledge appropriate to age and education Memory intact to recent and remote events Other cognitive testing: none Assessment and Plan (1) Schizophrenia: Current visit: Yes Status: Chronic Philomena Adames is a 72 year old female with past psychiatric history of schizophrenia and bipolar disorder and possible mild developmental delay who presents with pneumonia thought to be associated with swallowing difficulty secondary to worsening tardive's dyskinesia with initiation of Vraylar 1.5mg a few weeks ago. Pneumonia is resolving and she is medically stable. After discussing Philomena's options with her outpatient psychiatric nurse practitioner and reviewing her neurology notes, and after discussing goals of care with Philomena herself I recommend favoring optimal symptom management over concerns of long-term health consequences of medications such as elevated blood sugar which can also be managed. Philomena emphatically stated with a smile fewer years! when asked how to balance symptom management with maximizing her years of life. Recommendations: - do not restart antipsychotics at this time. Will be done with outpatient provider. Consider returning to [place] with more aggressive blood sugar management. - continue clonazepam and Ingrezza for movement disorder. - follow up with Toya Lorenzo NP at [facility] later this week or next week. - no indication for inpatient psychiatric hospitalization given no active mood or psychotic symptoms and she has close outpatient follow up. - reschedule outpatient neurology follow up given that she did not make her scheduled follow up 05/18/18 but was in the emergency room. Visit Statistics Total Visit Minutes: 55 Visit Time Allocation >50% of face to face visit spent in counseling (Extensive teaching, explanation and instructions. Counseling as appropriate. Review of plans, and discussion concerning medical problems dealt with at this visit. Discussion of benefits/risks of treatment, anticipated course of events, potential medication side effects, options, alternatives, and follow up plans. Questions were solicited and answered, and the patient verbalized understanding.), and/or coordination of care. (2) Tardive dyskinesia: Current visit: No Status: Chronic [facility] Medical History Developmental delay, borderline (Chronic) Migraine headache without aura (Chronic) Osteoporosis (Chronic) Depression with anxiety (Chronic) Chronic low back pain (Chronic) Osteoarthritis (Chronic) Hypothyroidism (Chronic) Arias's esophagus (Chronic) GERD (gastroesophageal reflux disease) (Chronic) Obstructive sleep apnea on CPAP (Chronic) Type 2 diabetes mellitus (Chronic) Hyperlipidemia (Chronic) Hypertension (Chronic) Urgency incontinence (Chronic 05/01/15) Tardive dyskinesia (Chronic 01/26/17) 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) Sensorineural hearing loss, bilateral (Chronic 01/07/15) Dysphagia, unspecified (Chronic 06/22/16) Surgical History H/O bilateral cataract extraction (Acute) H/O umbilical hernia repair (Acute) History of hysterectomy with bilateral oophorectomy (Acute) S/P cholecystectomy (Acute) H/O tubal ligation (Chronic) Family History Father Tremor Brother Tremor Sister Tremor Mother Heart disease Hypertension Sister Breast cancer Sister Stomach cancer Social History Smoking/Tobacco Use Status: Never Alcohol Intake: never Drug use: Never Substance use type: does not use Housing: assisted living facility Number of Children: 8 Do you feel safe in your relationship?: Yes Additional Social history: She attends [employer] 3x per week. Results Last Vital Signs Temp 36.9 C 06/13/18 11:45 Pulse 61 06/13/18 11:45 Resp 21 06/13/18 11:45 BP 118/76 06/13/18 11:45 Pulse Ox 97 06/13/18 11:45 Labs : 06/14/18 06:24 06/14/18 06:24 Laboratory Results - last 24 hr 06/13/18 06/13/18 06:15 06:15 WBC 5.83 RBC 4.35 Hgb 13.5 Hct 40.2 MCV 92.4 MCH 31.0 MCHC 33.6 RDW 13.1 Plt Count 137 MPV 11.0 Immature Gran % 0.2 Neutrophils % 35.5 Lymphocytes % 46.8 Monocytes % 10.6 Eosinophils % 6.7 Basophils % 0.2 Absolute Neutrophils 2.07 Absolute Lymphocytes 2.73 Absolute Monocytes 0.62 Absolute Eosinophils 0.39 Absolute Basophils 0.01 Sodium 144 Potassium 4.3 Chloride 109 H Carbon Dioxide 26.2 Anion Gap 8.8 BUN 9 Creatinine 0.76 Estimated GFR/1.73 m2 >= 60.00 Glucose 103 H Calcium 8.9 Magnesium 1.7 L
--- NOTE | 2018-06-13 15:11 | PDOC.CMPRO ---
- If Service Date Differs Date of service: 06/13/18 Time of Service: 15:12 Care Management Progress Note S/O: Philomena is sitting up when CM into visit. She is alert and engaged. met with her today and communicated with PAINT ROLLER ASSEMBLER at [facility]. Philomena will return home with family when she is ready. She to have an appointment with [facility] for follow up with Sonam Melo for follow up and med management. This should be scheduled prior to discharge. No other changes at this time she will not need an inpatient stay at [facility] per providers. Anticipate Philomena will be discharged home with family in the next 48 hours. A: 72 y/o female admitted 06/09/18 for CAP P: Philomena will return home with her sister when she is ready for discharge. did see her today and spoke with her PAINT ROLLER ASSEMBLER at [facility]. She will return home health RN/PT/OT services once stabilized and resumptions of Adult day services through [place]. Family to transport at time of discharge.
--- NOTE | 2018-06-13 15:20 | CMPROGNOTE_ITS ---
- If Service Date Differs Date of service: 06/13/18 Time of Service: 15:12 Care Management Progress Note S/O: Philomena is sitting up when CM into visit. She is alert and engaged. met with her today and communicated with WEIGHT ENGINEER at [facility]. Philomena will return home with family when she is ready. She to have an appointment with [facility] for follow up with Sonam Melo for follow up and med management. This should be scheduled prior to discharge. No other changes at this time she will not need an inpatient stay at [facility] per providers. Anticipate Philomena will be discharged home with family in the next 48 hours. A: 72 y/o female admitted 06/09/18 for CAP P: Philomena will return home with her sister when she is ready for discharge. did see her today and spoke with her WEIGHT ENGINEER at [facility]. She will return home health RN/PT/OT services once stabilized and resumptions of Adult day services through [place]. Family to transport at time of discharge.
--- NOTE | 2018-06-13 15:43 | PT.INTREAT ---
Date of service: 06/13/18 Time of Service: 14:15 PT Notes Inpatient Physical Therapy Treatment Note [facility] Date: 06/13/2018 PRECAUTIONS: Fall. Standard. SUBJECTIVE: Patient seen sitting on chair in a.m., lying in bed in p.m.. She stated she did not sleep well last night but was agreeable to both PT treatments at both times. OBJECTIVE: PAIN: 0/10 BED MOBILITY/TRANSFERS Rolling L/R: SBA Supine-sit: SBA Sit-supine: SBA Sit-stand: CGA Stand-sit: CGA Bed-Chair: CGA Chair-bed: CGA GAIT: Patient completed 75 feet x 2 of surface ambulation using 4WW with no reports of dizziness nor increased pain received, seated rest x1 with oxygen saturation staying above 90% on room air. Intentional tremor increased on B UE after activity and subsided with rest. THEREX: Tolerated BLE strengthening exercises in supine and sitting using green Thera-Band per exercise flowsheet. Deep breathing exercises emphasized in between each activity. ASSESSMENT: Patient continues to be compliant and cooperative with exercise and mobility progression. Vital signs continue to within normal limits. No new complaints nor increase in symptoms received today. PLAN: Patient will benefit from home health PT/OT/speech services in anticipation of discharge to home with sister. Patient will highly benefit from continued use of hospital bed in order to reduce fall risk and maximize independence with bed mobility and transfer tasks. TREATMENT CODE/TIME: [id number] minutes beginning at 11:44 AM; [id number] minutes beginning at 14:15 PM. Rox Brown, PT, DPT, CLT [facility]
--- NOTE | 2018-06-13 15:56 | PTTR_ITS ---
Date of service: 06/13/18 Time of Service: 14:15 PT Notes Inpatient Physical Therapy Treatment Note [facility] Date: 06/13/2018 PRECAUTIONS: Fall. Standard. SUBJECTIVE: Patient seen sitting on chair in a.m., lying in bed in p.m.. She stated she did not sleep well last night but was agreeable to both PT treatments at both times. OBJECTIVE: PAIN: 0/10 BED MOBILITY/TRANSFERS Rolling L/R: SBA Supine-sit: SBA Sit-supine: SBA Sit-stand: CGA Stand-sit: CGA Bed-Chair: CGA Chair-bed: CGA GAIT: Patient completed 75 feet x 2 of surface ambulation using 4WW with no reports of dizziness nor increased pain received, seated rest x1 with oxygen saturation staying above 90% on room air. Intentional tremor increased on B UE after activity and subsided with rest. THEREX: Tolerated BLE strengthening exercises in supine and sitting using green Thera-Band per exercise flowsheet. Deep breathing exercises emphasized in between each activity. ASSESSMENT: Patient continues to be compliant and cooperative with exercise and mobility progression. Vital signs continue to within normal limits. No new complaints nor increase in symptoms received today. PLAN: Patient will benefit from home health PT/OT/speech services in anticipation of discharge to home with sister. Patient will highly benefit from continued use of hospital bed in order to reduce fall risk and maximize independence with bed mobility and transfer tasks. TREATMENT CODE/TIME: [id number] minutes beginning at 11:44 AM; [id number] minutes beginning at 14:15 PM. Rox Brown, PT, DPT, CLT [facility]
--- NOTE | 2018-06-13 16:47 | CHAPLAIN ---
Philomena was resting in bed when I visited. Although I had some difficulty understanding Philomena, she was patient and continued to communicate with me. She was not sure if family members would be in to visit today, but if so it would likely be later in the day, she said. Philomena seems to be comfortable being here.
--- NOTE | 2018-06-13 19:28 | W.PM.PROGNOT ---
Date of Service Date of service: 06/13/18 Time of Service: 19:28 Assessment and Plan (1) Atrial flutter: Current visit: Yes Status: Acute New diagnosis, with patient now back in NSR. ECHO obtained and reviewed - essentially unremarkable. Already on BB. Discussed risks of anticoagulation given patient's history of Tardive Dyskinesia, Ambulatory Dysfunction, and multiple prior falls. Will hold off for now, and recommend repeat discussion as outpatient with PCP. (2) CAP (community acquired pneumonia): Current visit: Yes Status: Acute Failed therapy with Levofloxacin - however, in setting of dysphagia, Tardive Dyskinesia, and altered mental status - cannot rule out aspiration as etiology. Allergy to PCN noted. Continue current regimen of Aztreonam, Doxycycline, and Metronidazole, currently day #5. Unfortunately no Blood or Sputum Cultures obtained. Continue duonebs, antitussives on a prn basis. (3) Dysphagia, unspecified: Current visit: No Status: Chronic Assessed by Speech Therapy and on modified diet. Antibiotic regimen includes coverage for aspiration pneumonia as well. (4) Tardive dyskinesia: Current visit: No Status: Chronic In patient with a history of schizophrenia and bipolar disorder, on antipsychotic medications chronically. Given worsening symptoms currently holding patient's antipsychotic therapy with Cariprazine, but continuing patient's Valbenazine. Evaluated by Psych today, with plans for follow-up as outpatient for medication management - New regimen not to be initiated here. (5) Type 2 diabetes mellitus: Current visit: No Status: Chronic Holding basal insulin in setting of prior hypoglycemia and continued (but slightly improved) oral intake. Continue ISS, and monitor blood sugar - currently in the 80-100's. (6) Hypothyroidism: Current visit: No Status: Chronic Continue replacement therapy. (7) Hypertension: Current visit: No Status: Chronic Continue BB therapy. (8) Schizophrenia: Current visit: Yes Status: Chronic (9) Chest pain: Current visit: Yes Status: Acute Episode of CP may be related to pneumonia vs. Musculoskeletal etiology. Troponin trended and negative, and ECHO normal without evidence of wall motion abnormalities. No further complaints of CP. (10) DVT prophylaxis: Current visit: Yes Status: Acute Continue SC Lovenox. Also on PPI for GI Prophylaxis. (11) Advance directive discussed with patient: Current visit: Yes Status: Acute DNR/DNI. Subjective Interval history since last seen: 72 year old woman with a prior history of Schizophrenia, Bipolar Disorder, and Tardive Dyskinesia, admitted from [facility] Emergency Department with a diagnosis of pneumonia. Ms. Dominguezas a prior history of Bipolar disorder, Schizophrenia, Tardive Dyskinesia, and prior episodes of psychosis. Her other diagnosis include Hypothyroidism, HTN, dyslipidemia, DM, GERD, and ARMAND intolerant of CPAP. She also has a history of ambulatory dysfunction and dysphagia. The patient was seen on the day of her admission at the mental health clinic, and sent in to the ED. She had apparently been inititated on a new antipsychotic medication Vraylar (Cariprazine) recently, and since has developed worsening tremors and symptoms of her pre-existing diagnosis of Tardive Dyskinesia. Her symptoms were bad enough that she required assistance with all of her ADLs, whereas previously she used to be relatively independent and use a cane and sometimes a walker. She was also noted to have worsening weakness, and difficulty with swallowing liquids per history from her sister. Other symptoms included worsening speech and poor PO intake. Given her worsening falls at home she had also been living with her sister who is providing as her caregiver. Of note, the patient had also been diagnosed with CAP on 05/18, and discharged with Levofloxacin from the ED. Work-up at time of her presentation prior to admission revealed a LLL Pneumonia, which appears changed from her prior recent imaging. At that time she was referred for admission for further evaluation and treatment. Following her admission there was question of a potential facial droop, with work-up that included a negative MRI/MRA of the brain, Carotid Ultrasound, and ECHO. Her infection appears to be under control, and she has remained afebrile. Her mood and affect are at baseline. She is ambulating well. She has no complaints this morning. No other events reported overnight. Exam Narrative Exam Narrative: General: Patient appears comfortable, pleasant, awake and alert, NAD. Appears tremulous with b/l UE tremors, lip smacking, and abnormal tongue movements. Neck: Supple CV: Regular, nontachycardic, S1S2, No rubs, murmurs, or gallops. Pulmonary: Clear to auscultation bilaterally, no crackles or wheezing. Abdomen: + Bowel Sounds, soft, nontender, nondistended Vascular: No lower extremity edema Psych: Normal mood and affect. Objective Objective Clinical Data: Abnormal lab results 06/13/18 Range/Units 06:15 Chloride 109 H (98-107) mmol/L Glucose 103 H (70-100) mg/dL Magnesium 1.7 L (1.8-2.4) mg/dL Vital Signs Temperature 36.3 C L 06/13/18 19:17 Temperature Source Tympanic 06/13/18 19:17 Pulse 77 06/13/18 19:17 Pulse Rhythm Regular 06/13/18 17:31 Pulse 69 06/09/18 17:43 Respiratory Rate 19 06/13/18 19:17 Respiratory Effort 06/13/18 17:31 Respiratory Depth Normal 06/13/18 17:31 Respiratory Pattern Normal 06/13/18 17:31 Blood Pressure 145/58 H 06/13/18 19:17 Blood Pressure Mean 71 06/09/18 17:43 Blood Pressure Position Sitting 06/09/18 13:34 Pulse Oximetry 94 L 06/13/18 19:17 Oxygen Delivery Method Room Air 06/13/18 19:17 Oxygen Flow Rate 0 06/13/18 19:17 Pain Level 0 06/13/18 03:30 Comment 06/13/18 05:40 Intake & Output 06/12/18 06/13/18 06/13/18 23:59 11:59 23:59 Intake Total 1020 / 1900.5 679.0 / 899.0 220 / 899.0 Output Total 1500 / 2700 350 / 350 Balance -480 / -799.5 679.0 / 549.0 -130 / 549.0 Weight 93.2 kg Intake: IV 660 / 1180.5 499.0 / 599.0 100 / 599.0 Oral 360 / 720 180 / 300 120 / 300 Output: Urine 1500 / 2700 350 / 350 Other: Urine Color Yellow Yellow Yellow Urine Appearance Clear Clear Clear Urine Odor None Comment Void x1 in the bedside commode. Mixed with stool. Stool Size Small Small Stool Characteristics Soft Soft Formed Brown Brown Voiding Methods Bedside Commode Bedside Commode Bedside Commode Laboratory Results WBC 5.83 k/cumm (4.4-10.8) 06/13/18 06:15 RBC 4.35 m/cumm (4.00-5.20) 06/13/18 06:15 Hgb 13.5 g/dL (12.0-15.5) 06/13/18 06:15 Hct 40.2 % (36.0-46.0) 06/13/18 06:15 MCV 92.4 fL (80-95) 06/13/18 06:15 MCH 31.0 pg (27.0-33.0) 06/13/18 06:15 MCHC 33.6 g/dL (32.0-36.0) 06/13/18 06:15 RDW 13.1 % (11.7-14.6) 06/13/18 06:15 Plt Count 137 x1000/uL (130-400) 06/13/18 06:15 MPV 11.0 fL (8.0-11.0) 06/13/18 06:15 Immature Gran % 0.2 06/13/18 06:15 Neutrophils % 35.5 06/13/18 06:15 Lymphocytes % 46.8 06/13/18 06:15 Atypical Lymphs % 7 06/10/18 06:50 Monocytes % 10.6 06/13/18 06:15 Eosinophils % 6.7 06/13/18 06:15 Basophils % 0.2 06/13/18 06:15 Absolute Neutrophils 2.07 k/cumm (1.2-6.7) 06/13/18 06:15 Absolute Lymphocytes 2.73 k/cumm (1.2-3.4) 06/13/18 06:15 Absolute Monocytes 0.62 k/cumm (0.11-0.7) 06/13/18 06:15 Absolute Eosinophils 0.39 k/cumm (0.0-0.7) 06/13/18 06:15 Absolute Basophils 0.01 k/cumm (0.0-0.2) 06/13/18 06:15 Differential Comment Manual differential 06/10/18 06:50 RBC Morphology Normal 06/10/18 06:50 Sodium 144 mmol/L (136-145) 06/13/18 06:15 Potassium 4.3 mmol/L (3.5-5.1) 06/13/18 06:15 Chloride 109 mmol/L (98-107) H 06/13/18 06:15 Carbon Dioxide 26.2 mmol/L (21.0-32.0) 06/13/18 06:15 Anion Gap 8.8 mmol/L (3-11) 06/13/18 06:15 BUN 9 mg/dL (7-18) 06/13/18 06:15 Creatinine 0.76 mg/dL (0.55-1.02) 06/13/18 06:15 Estimated GFR/1.73 m2 >= 60.00 (mL/min/1.73m2) 06/13/18 06:15 Glucose 103 mg/dL (70-100) H 06/13/18 06:15 Calcium 8.9 mg/dL (8.5-10.1) 06/13/18 06:15 Magnesium 1.7 mg/dL (1.8-2.4) L 06/13/18 06:15 Total Bilirubin 0.6 mg/dL (0.2-1.0) 06/09/18 14:15 AST 27 U/L (15-37) 06/09/18 14:15 ALT 21 U/L (12-78) 06/09/18 14:15 Alkaline Phosphatase 84 U/L (46-116) 06/09/18 14:15 Creatine Kinase 39 U/L (26-192) 06/09/18 14:15 Troponin I 0.02 ng/mL (0.00-0.06) 06/11/18 06:40 Total Protein 7.6 g/dL (6.4-8.2) 06/09/18 14:15 Albumin 3.4 g/dL (3.4-5.0) 06/09/18 14:15 TSH 0.84 uIU/mL (0.358-3.74) 06/09/18 14:15 Urine Color Yellow (Yellow) 06/09/18 14:45 Urine Clarity Clear 06/09/18 14:45 Urine pH 6.0 (5-8) 06/09/18 14:45 Ur Specific [place] 1.015 (1.005-1.025) 06/09/18 14:45 Urine Protein Negative mg/dL (Negative) 06/09/18 14:45 Urine Ketones Negative mg/dL (Negative) 06/09/18 14:45 Urine Blood Negative (Negative) 06/09/18 14:45 Urine Nitrite Negative (Negative) 06/09/18 14:45 Urine Bilirubin Negative (Negative) 06/09/18 14:45 Urine Urobilinogen 0.2 EU/dL (Up TO 0.2) 06/09/18 14:45 Ur Leukocyte Esterase Negative (Negative) 06/09/18 14:45 Urine Glucose Negative mg/dL (Negative) 06/09/18 14:45
[2018-06-13] MEDS: Simvastatin 20 MG TAB PO (21:24)
[2018-06-13] MEDS: clonazePAM 0.5 MG TAB PO (21:24)
[2018-06-14] MEDS: metroNIDAZOLE 500 MG/100 ML BAG 100 MG IVPB ×3 (02:06→17:39)
[2018-06-14] MEDS: Normal Saline Flush 10 ML SYR IVP ×4 (02:06→16:13)
[2018-06-14] MEDS: AZTREONAM 2,000 MG in Normal Saline 100 ML 200 MG IVPB ×2 (03:32→12:00)
[2018-06-14] MEDS: Normal Saline 500 ML 30 ML IV (03:33)
[2018-06-14 05:00] VITALS: BP 110/70; PULSE 75; RESP 17; TEMP 36.5; O2SAT 96
[2018-06-14] MEDS: Levothyroxine 112 MCG TAB PO (05:39)
[2018-06-14 07:14] LABS: HCT 39.4 % (36.0-46.0); Mean Corpuscular Hemoglobin 30.4 pg (27.0-33.0); Mean Corpuscular Volume 92.3 fL (80-95); Mean Platelet Volume 11.3 fL (8.0-11.0); Platelet Count 137 x1000/uL (130-400); RBC 4.27 m/cumm (4.00-5.20); RBC Distribution Width 13.2 % (11.7-14.6); White Blood Cell Count 5.08 k/cumm (4.4-10.8)
[2018-06-14 07:31] LABS: BUN 7 mg/dL (7-18); CO2 25.7 mmol/L (21.0-32.0); CREATININE 0.75 mg/dL (0.55-1.02); Calcium 8.5 mg/dL (8.5-10.1); Glucose 112 mg/dL (70-100); Magnesium 1.3 mg/dL (1.8-2.4)
[2018-06-14 07:34] VITALS: PULSE 56
[2018-06-14 08:04] LABS: Absolute Lymphocyte Count 2.79 k/cumm (1.2-3.4); Absolute Monocyte Count 0.46 k/cumm (0.11-0.7); Absolute Neutrophil Count 1.42 k/cumm (1.2-6.7); Atypical Lymphocytes % 6
[2018-06-14 08:05] LABS: Absolute Eosinophil Count 0.41 k/cumm (0.0-0.7); Diff Comment Manual Differential; RBC Morphology Normal
[2018-06-14] MEDS: DOXYCYCLINE 100 MG in Normal Saline 100 ML IVPB (08:22)
[2018-06-14] MEDS: Multivitamin TAB 1 TAB PO (08:23)
[2018-06-14] MEDS: Triamcinolone 0.1% CR 15 GM TUBE TP (08:23)
[2018-06-14] MEDS: Dexlansoprazole 30 MG CAP PO (08:23)
[2018-06-14] MEDS: Propranolol 60 MG CAPCR PO (08:23)
[2018-06-14] MEDS: Aspirin 81 MG CHEW PO (08:23)
[2018-06-14] MEDS: Escitalopram 20 MG TAB 30 MG PO (08:23)
[2018-06-14] MEDS: Enoxaparin 40 MG/0.4 ML SYR SC (08:27)
[2018-06-14 08:35] LABS: Anion Gap 9.3 mmol/L (3-11); Chloride 109 mmol/L (98-107); Potassium 3.7 mmol/L (3.5-5.1); Sodium 144 mmol/L (136-145)
--- NOTE | 2018-06-14 08:48 | CMDISCH_ITS ---
- If Service Date Differs Date of service: 06/14/18 Time of Service: 08:48 LACE Index Scoring Tool - Questions: Length of Stay (in days): 4 - 6 Acuity (Admit via E.D.?): Yes E.D. Visits: 8 - Answers: Total Score: 11 Risk of Readmission: High Risk Care Management Discharge Reason for Hospitalization: Community Acquired pneumonia, urinary retention, possible CVA Discharge Plan: Philomena will be discharged home today with resumptions of services through home health. She will need to have her blood sugar monitored as she will be off her lantus. CM will fax notes to [employer] healthcare financial analyst at [facility] for close follow up. Philomena will need to have her 4WW repaired per PT she states it has not been more than 5 years since she obtainained the walker. CM did provide update to Caryn Navarrete director of casework at [facility]. Philomena will have a follow up scheduled with [facility] as requested with her psychiatric provider. Patient/Family Education Needs: Discharge education, limitations and follow up plan of care including ask me three and self management. Services Needed at Discharge: Home Health Care Services, Occupational Therapy, Outpatient Therapy, Physical Therapy, Psychiatric Facility, Speech Therapy
[2018-06-14 08:59] VITALS: BP 134/78; PULSE 74; RESP 18; TEMP 36.8; O2SAT 94
[2018-06-14] MEDS: POTASSIUM CHLORIDE 20 MEQ, POTASSIUM CHLORIDE 10 MEQ 30 MEQ PO (10:32)
--- NOTE | 2018-06-14 11:27 | OT.INTREAT ---
Date of service: 06/14/18 Time of Service: 09:30 Occupational Therapy Notes Occupational Therapy Inpatient Treatment Note Date: 06/14/18 PRECAUTIONS: Fall, Standard SUBJECTIVE: Pt was sitting on commode when OT arrives with nursing present in the room. OBJECTIVE: PAIN:No c/o pain FUNCTIONAL MOBILITY Sit-stand: SBA, FWW Stand-sit: SBA, FWW BATHING: Sitting in chair with max (A) set up Upper Body: Min vc for (B) UE, (I) abdomen, max (A) back, mod (A) hair. Lower Body: Pt was able to (I) wash to knees, max (A) for (B) below her legs and (B) feet. DRESSING: Sitting in chair Upper Extremity: min (A) donning and doffing hospital gown Lower Extremity: Mod (A) donning and doffing (B) socks. Toileting On commode Mod (A) toileting for rectal area (I) vaginal area ASSESSMENT/PLAN: Pt was able to demonstrate increased functional activity tolerance and increase functional (I) in ADL routines. She was able to perform toileting hygiene which has significantly increased since initial evaluation. OT recommends that pt return home when medically cleared per MD. TREATMENT CODES/TIME: [id number], 30 minutes (09:30) [facility]
--- NOTE | 2018-06-14 11:32 | OTTR_ITS ---
Date of service: 06/14/18 Time of Service: 09:30 Occupational Therapy Notes Occupational Therapy Inpatient Treatment Note Date: 06/14/18 PRECAUTIONS: Fall, Standard SUBJECTIVE: Pt was sitting on commode when OT arrives with nursing present in the room. OBJECTIVE: PAIN:No c/o pain FUNCTIONAL MOBILITY Sit-stand: SBA, FWW Stand-sit: SBA, FWW BATHING: Sitting in chair with max (A) set up Upper Body: Min vc for (B) UE, (I) abdomen, max (A) back, mod (A) hair. Lower Body: Pt was able to (I) wash to knees, max (A) for (B) below her legs and (B) feet. DRESSING: Sitting in chair Upper Extremity: min (A) donning and doffing hospital gown Lower Extremity: Mod (A) donning and doffing (B) socks. Toileting On commode Mod (A) toileting for rectal area (I) vaginal area ASSESSMENT/PLAN: Pt was able to demonstrate increased functional activity tolerance and increase functional (I) in ADL routines. She was able to perform toileting hygiene which has significantly increased since initial evaluation. OT recommends that pt return home when medically cleared per MD. TREATMENT CODES/TIME: [id number], 30 minutes (09:30) [facility]
[2018-06-14 11:42] VITALS: BP 97/68; PULSE 70; RESP 16; TEMP 36.4; O2SAT 95
[2018-06-14] MEDS: MAGNESIUM SULFATE 4 GM/100 ML BAG IVPB (11:45)
--- NOTE | 2018-06-14 12:00 | W.SPEECHPG ---
Date of service: 06/14/18 Time of Service: 11:30 Speech Therpy Note Note: SUBJECTIVE Patient(pt) greets with good direct eye contact and an intelligible verbal greeting. OBJECTIVE Nursing reports: - T: 36.8 - O2 sat: 94% on RA - LS: diminished bilaterally in the presence of ABX - Toleration of whole pill in puree (extended release pill) - Pt will be d/c home later today. Swallowing - Honey-thick liquid: Good bolus control;mildly-moderately delayed posterior oral transit (POT); no arlene signs/symptoms (s/s) aspiration'/penetration (A/P); oral clearance 100%; no oral escape. These results are true for single cup sips. - Trial [place]-thick liquid: Decreased bolus control; moderately delayed POT; no arlene s/s A/P; oral clearance 100%; no oral escape. Pt states she does not like the [place]-thick liquid and prefers the Honey-thick liquid. - Puree food: Good bolus control & linguopalatal bolus compression; moderately delayed POT; no arlene s/s A/P; oral clearance 100%; no oral escape. - Trial Mechanically Altered food: Decreased mastication quality despite increased mastication time; pt expectorated bolus on request. Pt & family reinstructed in use of effortful/forceful swallow strategy to be used with all p.o. intake to help minimize aspiration risk. Family instructed in liquid preparation to Honey-thick consistency. Gave family printed info regarding liquid consistencies, including Honey-thick. Discussed recommendation of purchasing both liquid thickener and a pill 2nd grade teacher, but that family should check with pharmacist to find out which pills are allowed to be crushed or dissolved. ASSESSMENT Pt continues to tolerate Honey-thick liquid and Puree diet. She is not appropriate for either diet or liquid advancement. PLAN 1. Continue Honey-thick liquids, a Puree diet and pills either crushed or whole in puree or dissolved or non-oral. 2. d/c ST at this time.
--- NOTE | 2018-06-14 12:20 | PNE_ITS ---
Date of service: 06/14/18 Time of Service: 11:30 Speech Therpy Note Note: SUBJECTIVE Patient(pt) greets with good direct eye contact and an intelligible verbal greeting. OBJECTIVE Nursing reports: - T: 36.8 - O2 sat: 94% on RA - LS: diminished bilaterally in the presence of ABX - Toleration of whole pill in puree (extended release pill) - Pt will be d/c home later today. Swallowing - Honey-thick liquid: Good bolus control;mildly-moderately delayed posterior oral transit (POT); no arlene signs/symptoms (s/s) aspiration'/penetration (A/P); oral clearance 100%; no oral escape. These results are true for single cup sips. - Trial [place]-thick liquid: Decreased bolus control; moderately delayed POT; no arlene s/s A/P; oral clearance 100%; no oral escape. Pt states she does not like the [place]-thick liquid and prefers the Honey-thick liquid. - Puree food: Good bolus control & linguopalatal bolus compression; moderately delayed POT; no arlene s/s A/P; oral clearance 100%; no oral escape. - Trial Mechanically Altered food: Decreased mastication quality despite increased mastication time; pt expectorated bolus on request. Pt & family reinstructed in use of effortful/forceful swallow strategy to be used with all p.o. intake to help minimize aspiration risk. Family instructed in liquid preparation to Honey-thick consistency. Gave family printed info regarding liquid consistencies, including Honey-thick. Discussed recommendation of purchasing both liquid thickener and a pill continuous crusher operator, but that family should check with pharmacist to find out which pills are allowed to be crushed or dissolved. ASSESSMENT Pt continues to tolerate Honey-thick liquid and Puree diet. She is not appropriate for either diet or liquid advancement. PLAN 1. Continue Honey-thick liquids, a Puree diet and pills either crushed or whole in puree or dissolved or non-oral. 2. d/c ST at this time.
[2018-06-14 15:09] VITALS: PULSE 67
[2018-06-14 15:35] VITALS: BP 113/71; PULSE 73; RESP 19; TEMP 36.5; O2SAT 94
--- NOTE | 2018-06-14 15:44 | W.PM.DS.N ---
Date of service: 06/14/18 Time of Service: 15:45 DS: Diagnosis Discharge Diagnosis (1) Schizophrenia: Status: Chronic (2) Tardive dyskinesia: Status: Chronic (3) Atrial flutter: Status: Acute (4) CAP (community acquired pneumonia): Status: Acute Discharge Plan Disposition Patient Disposition: HOME Condition: Improving Discharge Details Reason For Visit: CAP Admit Date/Time: 06/09/18 16:06 Admit Provider: Maryse Jewell Attending Provider: Maryse Jewell Primary Care Provider: Leti Franz [place] Hospital Course Hospital Course: CC: Weakness, Worsening Tremors HPI: 72 year old woman with a prior history of Schizophrenia, Bipolar Disorder, and Tardive Dyskinesia, admitted from [facility] Emergency Department with a diagnosis of pneumonia. Ms. Dominguezas a prior history of Bipolar disorder, Schizophrenia, Tardive Dyskinesia, and prior episodes of psychosis. Her other diagnosis include Hypothyroidism, HTN, dyslipidemia, DM, GERD, and ARMAND intolerant of CPAP. She also has a history of ambulatory dysfunction and dysphagia. The patient was seen on the day of her admission at the mental health clinic, and sent in to the ED. She had apparently been inititated on a new antipsychotic medication Vraylar (Cariprazine) recently, and since has developed worsening tremors and symptoms of her pre-existing diagnosis of Tardive Dyskinesia. Her symptoms were bad enough that she required assistance with all of her ADLs, whereas previously she used to be relatively independent and use a cane and sometimes a walker. She was also noted to have worsening weakness, and difficulty with swallowing liquids per history from her sister. Other symptoms included worsening speech and poor PO intake. Given her worsening falls at home she had also been living with her sister who is providing as her caregiver. Of note, the patient had also been diagnosed with CAP on 05/18, and discharged with Levofloxacin from the ED. Work-up at time of her presentation prior to admission revealed a LLL Pneumonia, which appears changed from her prior recent imaging. At that time she was referred for admission for further evaluation and treatment. Following her admission there was question of a potential facial droop, with work-up that included a negative MRI/MRA of the brain, Carotid Ultrasound, and ECHO. She has gone in and out of Aflutter occasionally, although not sustained. Her infection appears to be under control, and she has remained afebrile. Her mood and affect are at baseline. She is ambulating well. She has no complaints this morning. No other events reported overnight. Hospital Course: (1) Atrial flutter: New diagnosis, with patient now back in NSR. ECHO obtained and reviewed - essentially unremarkable. Already on BB. Discussed risks of anticoagulation given patient's history of Tardive Dyskinesia, Ambulatory Dysfunction, and multiple prior falls. Will hold off anticoagulation for now, and recommend repeat discussion as outpatient with PCP - ultimately may not be a good candidate for anticoagulation. (2) Pneumonia: Failed therapy with Levofloxacin - however, in setting of dysphagia, Tardive Dyskinesia, and altered mental status - cannot rule out aspiration as etiology. Allergy to PCN noted. Ms. Adames improved dramatically with regimen of Aztreonam, Doxycycline, and Metronidazole, currently day #6. Unfortunately no Blood or Sputum Cultures obtained. Will conclude with an additional day of Cefpodoxime, Doxy, and Flagyl - patient is penicillin allergic, but will likely have very low risk of adverse reaction to 3rd gen cephalosporin. (3) Dysphagia, unspecified: Assessed by Speech Therapy and on modified diet. Antibiotic regimen includes coverage for aspiration pneumonia as well. (4) Tardive dyskinesia: In patient with a history of schizophrenia and bipolar disorder, on antipsychotic medications chronically. Given worsening symptoms currently holding patient's antipsychotic therapy with Cariprazine, but continuing patient's Valbenazine. Evaluated by Psych, with plans for follow-up as outpatient for medication management - New regimen not to be initiated here. (5) Type 2 diabetes mellitus: Holding basal insulin in setting of prior hypoglycemia and continued (but slightly improved) oral intake. As patient's blood sugars have remained in the 80-100's she will be discharged off her basal insulin, with plans for careful home glucose monitoring and Home Health Follow-up prior to seeing her primary care physician, with call to PCPs office advised if fasting blood sugars consistently exceed the 300 range. (6) Hypothyroidism: Continue replacement therapy. (7) Hypertension: Continue BB therapy. (8) Schizophrenia: (9) Chest pain: Episode of CP may have been related to pneumonia vs. Musculoskeletal etiology. Troponin trended and negative, and ECHO normal without evidence of wall motion abnormalities. No further complaints of CP. (10) DVT prophylaxis: Patient was maintained on SC Lovenox. Also on PPI for GI Prophylaxis. (11) Advance directive discussed with patient: DNR/DNI. Home Meds and New Rx's Prescriptions: New cefpodoxime 200 mg tablet 200 mg PO BID Qty: 3 RF: 0 doxycycline hyclate 100 mg tablet,delayed release (DR/EC) 100 mg PO BID Qty: 3 RF: 0 metronidazole [Flagyl] 500 mg tablet 500 mg PO TID Qty: 4 RF: 0 Continued FreeStyle Test 1 EACH strip 1 ea Miscellaneous DAILY RF: 0 propranolol 60 mg capsule,extended release 24 hr 60 mg PO DAILY RF: 0 aspirin 81 mg tablet 81 mg PO DAILY RF: 0 multivitamin tablet 1 tab PO DAILY RF: 0 escitalopram oxalate 20 mg tablet 30 mg PO DAILY RF: 0 levothyroxine 112 MCG tablet 112 mcg PO DAILY RF: 0 Ingrezza 80 mg Capsule 80 mg PO DAILY RF: 0 albuterol sulfate [Ventolin HFA] 200 PUFF HFA aerosol inhaler 2 puff Inhalation Q4H PRNQty: 1 RF: 0 clonazepam 0.5 mg Tablet 0.25 mg PO PRN PRN (Reason: Tremor(S)) RF: 0 simvastatin [Zocor] 20 mg Tablet 20 mg PO HS RF: 0 Dexilant 30 mg Capsule,Biphase Delayed Releas 30 mg PO BID RF: 0 clonazepam 0.5 mg tablet 0.5 mg PO HS RF: 0 triamcinolone acetonide 0.1 % Cream 1 applic topical DAILY RF: 0 Discontinued Basaglar KwikPen U-100 Insulin 100 unit/mL (3 mL) insulin pen 60 unit subcut QAM RF: 0 Vraylar 1.5 mg Capsule 1.5 mg PO DAILY RF: 0 Vraylar 1.5 mg Capsule 1.5 mg PO DAILY RF: 0 Discharge Instructions Care Plan Goals: Philomena will resume Home health services for PT/OT, and nursing. Stand Alone Forms: Nursing Discharge Form Referrals: Toya Shepherd [NURSE PRACTITIONER] - 06/15/18 3:30 pm Leti Franz MD [Primary Care Provider] - 07/01/18 8:50 am Activity:: No strenuous activity Equipment/Supplies:: No Equipment Needed Diet:: Pureed honey thick with assisted feedings, crushed pills in puree, sippy cup, no straws, no dairy, and forceful swallow strategy Discharge Orders Discharge Orders: Discharge Order (Routine); Ordered 06/14/18 Ordered By: Jaime More Exam Narrative Exam Narrative: General: Patient appears comfortable, pleasant, awake and alert, NAD. Appears tremulous with b/l UE tremors, lip smacking, and abnormal tongue movements. Neck: Supple CV: Regular, nontachycardic, S1S2, No rubs, murmurs, or gallops. Pulmonary: Clear to auscultation bilaterally, no crackles or wheezing. Abdomen: + Bowel Sounds, soft, nontender, nondistended Vascular: No lower extremity edema Psych: Normal mood and affect. DS: Data Vitals/I&O Vitals and I&O: Vital Signs Temperature 36.4 C L 06/14/18 11:42 Temperature Source Tympanic 06/14/18 11:42 Pulse 70 06/14/18 11:42 Pulse Rhythm Regular 06/14/18 01:37 Pulse 69 06/09/18 17:43 Respiratory Rate 16 06/14/18 11:42 Respiratory Effort 06/14/18 01:37 Respiratory Depth Normal 06/14/18 01:37 Respiratory Pattern Normal 06/14/18 01:37 Blood Pressure 97/68 L 06/14/18 11:42 Blood Pressure Mean 71 06/09/18 17:43 Blood Pressure Position Sitting 06/09/18 13:34 Pulse Oximetry 95 06/14/18 11:42 Oxygen Delivery Method Room Air 06/14/18 11:42 Oxygen Flow Rate 0 06/14/18 11:42 Pain Level 0 06/14/18 08:04 Comment 06/13/18 05:40 Intake & Output 06/13/18 06/14/18 06/14/18 23:59 11:59 23:59 Intake Total 640 / 1319.0 893.5 / 1380.167 486.667 / 1380.167 Output Total 1250 / 1250 1626 / 1626 Balance -610 / 69.0 -732.5 / -245.833 486.667 / -245.833 Weight 92.3 kg Intake: IV 400 / 899.0 653.5 / 900.167 246.667 / 900.167 Oral 240 / 420 240 / 480 240 / 480 Output: Urine 1250 / 1250 1625 / 1625 Stool Other: Urine Color Yellow Dark Natty Urine Appearance Clear Clear Urine Odor Normal None Stool Size Moderate Stool Characteristics Soft Brown Voiding Methods Bedside Commode Bedside Commode Completed studies during hospitalization [Text1]: Exam(s) 06/[address]:CT head wo SYMPTOMS/DIAGNOSIS: ALTERED MENTATION, LEFT FACIAL DROOP CRANIAL CT: A noncontrast enhanced examination was performed. Moderately severe atrophic changes are demonstrated. There is no evidence of an intra/extra-axial hemorrhage, mass or fluid collection. There are small regions of diminished absorption in the frontoparietal white matter bilaterally consistent with small vessel disease and incidental note is made of small calcifications in the basal ganglia. There is no evidence of a skull fracture. Mild inflammatory changes involving the maxillary antra are demonstrated. There are minimal inflammatory changes involving the ethmoids. The frontal and sphenoid sinus are normal. There is no evidence of a mastoid effusion. SUMMARY: Atrophic changes and evidence of small vessel disease. No acute intracranial abnormality is demonstrated. --------- Exam(s) 06/09 a RAD:XR chest 2V PA & lateral SYMPTOMS/DIAGNOSIS: COUGH CHEST: Frontal and lateral views. Comparison is 05/18/18. There is poor inspiration. The heart size and pulmonary vasculature are within normal limits. The bilateral interstitial infiltrates seen on the examination from 05/18/18 appear grossly unchanged. No new infiltrates, effusions or pneumothoraces are identified. The bones appear stable. No acute osseous abnormality is identified. IMPRESSION: Stable interstitial disease since 05/18/18. Differential considerations include chronic interstitial disease, atelectasis, scarring or pneumonia. Please correlation clinically. --------- EXAM: 06/09 XR Chest, 2 Views EXAM DATE/TIME: 06/09/2018 3:33 PM CLINICAL HISTORY: 72 years old, female; Signs and symptoms; Other: Cough TECHNIQUE: Imaging protocol: XR of the chest, 2 views. COMPARISON: SC XR CHEST 2V PA LATERAL 05/18/2018 7:17 PM. 02/17/2018. FINDINGS: Lungs: There are streaky opacities along the left heart border and within the left retrocardiac region which could represent atelectasis or infection. More superiorly, there are interstitial markings which can be seen with edema. Pleural space: Unremarkable. No pleural effusion. No pneumothorax. Heart/Mediastinum: The mediastinum appears widened, similar to prior examination. Cardiac shadow is unchanged. Bones/joints: Skeletal degenerative changes. Old right-sided rib fractures are seen. A compression fracture of a lower thoracic vertebral body is noted on the lateral radiograph, unchanged. Old right-sided rib fractures remain seen. IMPRESSION: 1. There are streaky opacities along the left heart border and within the left retrocardiac region which could represent atelectasis or infection. More superiorly, there are interstitial markings which can be seen with edema. Other findings as above. --------- Exam(s) 06/10/2018 a US:US carotid SYMPTOMS/DIAGNOSIS: SUSPECTED CVA, HTN, HYPERLIPIDEMIA, FACIAL DROOP CAROTID ULTRASOUND: Routine examination was performed. On the right there is mild calcific plaque seen in the carotid bulbs. No hemodynamically significant velocity elevations are present on the right. The right vertebral artery is antegrade. On the left there is mild calcific plaque seen in the carotid bulb. No hemodynamically significant velocity elevations are seen on the left. The left vertebral artery is antegrade. IMPRESSION: No evidence of hemodynamically significant cervical cord artery stenosis. --------- Exam(s) a US:US echocardiogram Date of study: 06/10/2018 Transthoracic Echocardiography M-mode, complete 2D, complete spectral Doppler, and color Doppler *STUDY CONCLUSIONS* Summary: 1. Left ventricle: The cavity size was normal. Wall thickness was normal. Systolic function was normal. The estimated ejection fraction was 55-60%. Wall motion was normal; there were no regional wall motion abnormalities. 2. Right ventricle: The cavity size was normal. Systolic function was normal. --------- Exam(s) 06/10 a MRI:MR angio brain wo a MRI:MR brain wo SYMPTOMS/DIAGNOSIS: COMMUNITY-ACQUIRED PNEUMONIA, ? CEREBROVASCULAR ACCIDENT MRI OF THE BRAIN: Noncontrast examination was performed. There is cerebral atrophy consistent with the patient's age. The diffusion weighted images show no evidence of an acute infarct. No intracranial hemorrhage is present. The ventricles are intact. The basilar cisterns are patent. There is no acute midline shift or mass effect. The orbits and retroorbital soft tissues appear grossly unremarkable. The pituitary gland appears grossly unremarkable. There is mild patient motion artifact present. IMPRESSION: No evidence of an acute infarct. MRA OF THE BRAIN: Routine noncontrast examination was performed. The distal internal carotid arteries are unremarkable. No occlusion or significant stenosis is seen. The anterior cerebral arteries are unremarkable. No evidence of occlusion or aneurysm. No significant stenosis is present. The middle cerebral arteries are unremarkable without evidence of occlusion or aneurysm. No significant stenosis is seen. The posterior cerebral arteries arise from the posterior communicating arteries bilaterally. This is a normal variant. No significant stenosis is seen. No aneurysm or occlusion is present. The basilar artery is unremarkable. No evidence of occlusion or aneurysm is seen. IMPRESSION: Unremarkable MRA of the [place]. --------- Labs on day of discharge: Labs from last 24 hours 06/14/18 06/14/18 06:24 06:24 WBC 5.08 RBC 4.27 Hgb 13.0 Hct 39.4 MCV 92.3 MCH 30.4 MCHC 33.0 RDW 13.2 Plt Count 137 MPV 11.3 H Immature Gran % 0.0 Neutrophils % 28.0 Lymphocytes % 49.0 Atypical Lymphs % 6 Monocytes % 9.0 Eosinophils % 8.0 Basophils % 0.0 Absolute Neutrophils 1.42 Absolute Lymphocytes 2.79 Absolute Monocytes 0.46 Absolute Eosinophils 0.41 Absolute Basophils 0.00 Differential Comment Manual differential RBC Morphology Normal Sodium 144 Potassium 3.7 Chloride 109 H Carbon Dioxide 25.7 Anion Gap 9.3 BUN 7 Creatinine 0.75 Estimated GFR/1.73 m2 >= 60.00 Glucose 112 H Calcium 8.5 Magnesium 1.3 L [facility] Medical History Developmental delay, borderline (Chronic) Migraine headache without aura (Chronic) Osteoporosis (Chronic) Depression with anxiety (Chronic) Chronic low back pain (Chronic) Osteoarthritis (Chronic) Hypothyroidism (Chronic) Arias's esophagus (Chronic) GERD (gastroesophageal reflux disease) (Chronic) Obstructive sleep apnea on CPAP (Chronic) Type 2 diabetes mellitus (Chronic) Hyperlipidemia (Chronic) Hypertension (Chronic) Urgency incontinence (Chronic 05/01/15) Tardive dyskinesia (Chronic 01/26/17) 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) Sensorineural hearing loss, bilateral (Chronic 01/07/15) Dysphagia, unspecified (Chronic 06/22/16) Surgical History H/O bilateral cataract extraction (Acute) H/O umbilical hernia repair (Acute) History of hysterectomy with bilateral oophorectomy (Acute) S/P cholecystectomy (Acute) H/O tubal ligation (Chronic) Family History Father Tremor Brother Tremor Sister Tremor Mother Heart disease Hypertension Sister Breast cancer Sister Stomach cancer Social History Smoking/Tobacco Use Status: Never Alcohol Intake: never Drug use: Never Substance use type: does not use Housing: assisted living facility Number of Children: 8 Do you feel safe in your relationship?: Yes Additional Social history: She attends [employer] 3x per week.
--- NOTE | 2018-06-14 16:52 | PDOC.HHF2F ---
1. Encounter Date and Reason I certify that VENKAT NEGRON was seen by Jaime More on 06/14/18 and that I had a [id number] encounter with this patient that meets the physician face to face encounter requirements. 2. Clinical Findings Supporting Skilled Need and Homebound Status I certify that home health services are medically necessary, include either intermittent mcc and/or physical/speech therapy, and that this patient is homebound in that absences from the home require considerable and taxing effort and are infrequent or of short duration, or are attributable to the need to receive medical care. [X] (a) Attached documentation from encounter provides clinical findings supporting skilled need and homebound status (including what assistance patient requires to leave the home). The encounter with the patient was in whole, or in part, for the following medical condition, which is the primary reason for home health care: CAP [facility]: Diabetic Patient with insulin on hold due to hypoglycemia in the hospital. Blood Sugars in the 80-100's with lack of home insulin dose. Sister advised to monitor fasting blood sugars. Please monitor blood sugars, contact PCP if consistently elevated (>300's) Physical Therapy: Speech Therapy: Homebound: 3. Certification and Authentication I certify that I composed the above information based on my clinical judgement relating to this patient's medical condition and, if applicable, clinical findings communicated to me by the NPP or inpatient physician who performed the Home Health Referral. All further orders will be obtained through (Community Based Physician - PCP)
--- NOTE | 2018-06-14 16:55 | HHF2F_ITS ---
1. Encounter Date and Reason I certify that VENKAT NEGRON was seen by Jaime More on 06/14/18 and that I had a [id number] encounter with this patient that meets the physician face to face encounter requirements. 2. Clinical Findings Supporting Skilled Need and Homebound Status I certify that home health services are medically necessary, include either intermittent prison and/or physical/speech therapy, and that this patient is homebound in that absences from the home require considerable and taxing effort and are infrequent or of short duration, or are attributable to the need to receive medical care. [X] (a) Attached documentation from encounter provides clinical findings supporting skilled need and homebound status (including what assistance patient requires to leave the home). The encounter with the patient was in whole, or in part, for the following medical condition, which is the primary reason for home health care: CAP [facility]: Diabetic Patient with insulin on hold due to hypoglycemia in the hospital. Blood Sugars in the 80-100's with lack of home insulin dose. Sister advised to monitor fasting blood sugars. Please monitor blood sugars, contact PCP if consistently elevated (>300's) Physical Therapy: Speech Therapy: Homebound: 3. Certification and Authentication I certify that I composed the above information based on my clinical judgement relating to this patient's medical condition and, if applicable, clinical findings communicated to me by the NPP or inpatient physician who performed the Home Health Referral. All further orders will be obtained through (Community Based Physician - PCP)
--- NOTE | 2018-06-15 08:08 | OT.INDS ---
Date of service: 06/15/18 Time of Service: 08:08 Occupational Therapy Notes Occupational Therapy Inpatient Discharge Summary Dates of Service: 06/10/18-06/14/18 Date: 06/15/18 for 06/14/18 Referring Doctor:Maryse Jewell MD OT Orders: Eval and Treat Precautions: Fall, Standard PATIENT PROFILE/ADMITTING DIAGNOSIS: Pt is a 72 year old female who was admitted through the ER for cough, weakness, unsteadiness and decrease in appetite. She was then later dx with CAP and admitted to Med Surg. Past Medical History: GERD, Hyperlipidemia, Hypertension, Hypothyroidism, Migraine headache without aura, Obstructive sleep apnea on CPAP, Osteoarthritis, osteoporosis, Sensorineural hearing loss, bilateral,Tardive akathisia, Tardive dyskinesia, Type 2 diabetes mellitus, Urinary incontinence,Daniel's esophagus, Chronic low back pain, Depression with anxiety,. Development delay, borderline, Dysphagia. Social History/Home Situation: Pt lives with her sister in a private home. Pt states that she requires (A) for ADL/IADL routines. She notes that she is unable to get dressed, bath or perform functional mobility without (A). Per sister report, to the physical therapist she currently uses a folding chair in the shower for bathing routine. OT recommends shower bench to increase pts safety for functional transfer and bathing routine. Equipment owned/DME: Hospital bed, 4WW per pts EMR. THIS DOCUMENT SERVES A SUMMARY OF CARE NO SKILLED OT SERVICES PROVIDED FOR THIS DOCUMENTATION SUBJECTIVE: NT OBJECTIVE: ROM: RUE Shoulder flexion 160*, elbow WNL, hand/digits WNL L UE Shoulder flexion 160*, elbow WNL, hand/digits WNL STRENGTH: RUE Shoulder flexion 4/5, bicep 4-/5, tricep 4/5, detective captain 4+/5 LUE Shoulder flexion 4/5, bicep 4-/5, tricep 4/5, detective captain 5/5 FUNCTIONAL MOBILITY/ADLS: Transfers Supine-sit S Sit-supine S Sit-Stand CGA Stand-sit CGA Bed-Chair SBA, 4WW Chair-bed SBA, 4WW BALANCE: Static sitting Good Dynamic Sitting Fair Static Standing Fair Dynamic Standing Fair ASSESSMENT: Patient is a 72-year-old female referred to occupational therapy services with diagnosis of complaint of cough, general weakness, unsteady gait, and decreased appetite. She was later dx with community-acquired pneumonia. Pt was seen for 3 skilled OT services. Pt was discharged home on 06/14/18 when medically cleared per MD. GOALS 1. Transfers SBA, 4WW (met) 2. Dressing Sitting in chair pt will require mod (A) for LE and min (A) for UE dressing. (met) 3. Bathing sitting in chair with max (A) set up (I) with UE bathing and Mod (A) LE bathing. (met) 4. Toileting Mod (A) on toilet. (met) 5. Eating Min (A) with adaptive silverware (met) 6. Standing at sink with 4WW (I) (not Met) PLAN OF CARE/TREATMENT PLAN: Discharge from skilled OT services. DISCHARGE RECOMMENDATIONS Pt returned home on 06/14/18 when medically cleared per MD. TREATMENT TIME/MINUTES/CODES N/A Amber Atwood OTR/L [facility]
--- NOTE | 2018-06-15 08:12 | OTDS_ITS ---
Date of service: 06/15/18 Time of Service: 08:08 Occupational Therapy Notes Occupational Therapy Inpatient Discharge Summary Dates of Service: 06/10/18-06/14/18 Date: 06/15/18 for 06/14/18 Referring Doctor:Maryse Jewell MD OT Orders: Eval and Treat Precautions: Fall, Standard PATIENT PROFILE/ADMITTING DIAGNOSIS: Pt is a 72 year old female who was admitted through the ER for cough, weakness, unsteadiness and decrease in appetite. She was then later dx with CAP and admitted to Med Surg. Past Medical History: GERD, Hyperlipidemia, Hypertension, Hypothyroidism, Migraine headache without aura, Obstructive sleep apnea on CPAP, Osteoarthritis, osteoporosis, Sensorineural hearing loss, bilateral,Tardive akathisia, Tardive dyskinesia, Type 2 diabetes mellitus, Urinary incontinence,Daniel's esophagus, Chronic low back pain, Depression with anxiety,. Development delay, borderline, Dysphagia. Social History/Home Situation: Pt lives with her sister in a private home. Pt states that she requires (A) for ADL/IADL routines. She notes that she is unable to get dressed, bath or perform functional mobility without (A). Per sister report, to the physical therapist she currently uses a folding chair in the shower for bathing routine. OT recommends shower bench to increase pts safety for functional transfer and bathing routine. Equipment owned/DME: Hospital bed, 4WW per pts EMR. THIS DOCUMENT SERVES A SUMMARY OF CARE NO SKILLED OT SERVICES PROVIDED FOR THIS DOCUMENTATION SUBJECTIVE: NT OBJECTIVE: ROM: RUE Shoulder flexion 160*, elbow WNL, hand/digits WNL L UE Shoulder flexion 160*, elbow WNL, hand/digits WNL STRENGTH: RUE Shoulder flexion 4/5, bicep 4-/5, tricep 4/5, kennel worker 4+/5 LUE Shoulder flexion 4/5, bicep 4-/5, tricep 4/5, kennel worker 5/5 FUNCTIONAL MOBILITY/ADLS: Transfers Supine-sit S Sit-supine S Sit-Stand CGA Stand-sit CGA Bed-Chair SBA, 4WW Chair-bed SBA, 4WW BALANCE: Static sitting Good Dynamic Sitting Fair Static Standing Fair Dynamic Standing Fair ASSESSMENT: Patient is a 72-year-old female referred to occupational therapy services with diagnosis of complaint of cough, general weakness, unsteady gait, and decreased appetite. She was later dx with community-acquired pneumonia. Pt was seen for 3 skilled OT services. Pt was discharged home on 06/14/18 when mal diaz cleared per MD. GOALS 1. Transfers SBA, 4WW (met) 2. Dressing Sitting in chair pt will require mod (A) for LE and min (A) for UE dressing. (met) 3. Bathing sitting in chair with max (A) set up (I) with UE bathing and Mod (A) LE bathing. (met) 4. Toileting Mod (A) on toilet. (met) 5. Eating Min (A) with adaptive silverware (met) 6. Standing at sink with 4WW (I) (not Met) PLAN OF CARE/TREATMENT PLAN: Discharge from skilled OT services. DISCHARGE RECOMMENDATIONS Pt returned home on 06/14/18 when medically cleared per MD. TREATMENT TIME/MINUTES/CODES N/A Amber Atwood OTR/L [facility]
--- NOTE | 2018-06-15 16:14 | PT.INDS ---
Date of service: 06/14/18 Time of Service: 10:07 PT Notes Inpatient Physical Therapy Discharge Summary Dates: 06/14/2018 Dates of Service: 06/10/2018 through 06/14/2018 Referring Doctor: Maryse Jewell MD PT Orders: PT CONSULT: Eval/treat Precautions: Fall. Standard. Patient Profile/Admitting Diagnosis: Order received for this 72-year-old female who presented to the ED on 06/09/2018 with chief complaints of cough, general weakness, unsteadiness of gait, and decreased appetite. Philomena was diagnosed with community-acquired pneumonia, ambulatory dysfunction, and weakness. PMHX: Medical History Daniel's esophagus Chronic low back pain Depression with anxiety Development delay, borderline Dysphagia GERD Hyperlipidemia Hypertension Hypothyroidism Migraine headache without aura Obstructive sleep apnea on CPAP Osteoarthritis Osteoporosis Sensorineural hearing loss (bilateral) Tardive dyskinesia Type 2 Diabetes Mellitus Urgency incontinence Schizophrenia Surgical History H/O bilateral cataract extraction H/O tubal ligation H/O umbilical hernia repair H/O hysterectomy with bilateral oopherectomy S/p cholecystectomy Social History/Home Situation: Philomena currently lives with her sister Chantal since February of last year who provides assistance with bathing. Sister states that she uses a folding chair, places chair inside the tub, and have Philomena step over and onto chair for bathing. Philomena goes to adult daycare via [employer] on a daily basis from Mondays through Fridays. At her sister's house, there is 4 steps to enter without rails but sister is able to provide minimal assistance to Philomena in and out of the house. Chantal states that she is thinking of having a ramp built at her house for easy access for Philomena. Chantal states that Philomena has been able to walk from her bedroom to the bathroom about 20-30 feet using her 4 wheeled walker. Patient has had 3 falls the past 12 months. Equipment Owned/DME: Sister states that Philomena has hospital bed that they have been renting as she states PCP has been having an issue about justifying her need for bed, 4WW but with left break broken. Patient also has a CPAP machine that she has not been using according to her sister Chantal due to the discomfort. Subjective: Philomena is agreeable to a PT discharge assessment and treatment today. She states she looks forward to going home to her sister's house. Objective: General Observation: Patient seen sitting on her chair with IV in right UE. Ortiz catheter on. Telemetry wires attached. Mental Status: Alert and oriented as to person and place. Unable to determine date and time. Pain: 0/10 ROM: Right Upper Extremity: WFL Left Upper Extremity: WFL Right Lower Extremity: Hip flexion to about 30 degrees beyond 90 degrees while seated on chair. Knee and ankle joints WFL. Left Lower Extremity: Hip flexion to about 30 degrees beyond 90 degrees while seated on chair. Knee and ankle joints WFL. Strength: Right Upper Extremity: WFL Left Upper Extremity: WFL Right Lower Extremity: Hip flexors 4/5. Hip extensors 4-/5. Knee flexors 4/5. Knee extensors 4-/5. Ankle plantar flexors 4/5. Ankle dorsiflexors 4/5. Left Lower Extremity: Hip flexors 4/5. Hip extensors 4-/5. Knee flexors 4/5. Knee extensors 4-/5. Ankle plantar flexors 4/5. Ankle dorsiflexors 4/5. Sensation: Intact as to pain and pressure to bilateral lower extremities. Bed Mobility/Transfers: Rolling supervision Supine to sit supervision Sit to supine supervision Sit to stand supervision Stand to sit supervision Bed to chair SBA Chair to bed SBA Gait: Patient was able to tolerate level surface ambulation using 4WW for 300 feet with SBA provided without any complaints of increased pain, dizziness, or fatigue. No LOB noted. Balance: Static Sitting: Good Dynamic Sitting: Good Static Standing: Fair Dynamic Standing: Fair Special Tests: Mobility Limitations Standardized Measure [facility] 6 clicks Basic Mobility Inpatient Short Form: Raw Score: 22 CMS Score: 21 % deficit Assessment: Patient is a 72 year old female referred to physical therapy services with the diagnosis of community-acquired pneumonia, ambulatory dysfunction, and generalized weakness. Patient patient demonstrated significant improvement in terms of activity tolerance and mobility level. She however continues to present with the following impairment level findings: 1. Decreased strength to B LE major muscle groups 2. Impaired balance 3. Impaired activity tolerance 4. Dyskinesia Impairments are contributing to the following functional limitations: 1. Inability to safely ambulate without assistive device and physical assistance 2. Increase completion time for mobility ADL performance 3. Increased fall risk 4. Inability to negotiate steps alone safely Goals: Goals X1 week 1. Supine-Sit independent NOT MET 2. Sit-Supine independent NOT MET 3. Sit-Stand independent NOT MET 4. Stand-Sit independent NOT MET 5. Bed-Chair independent NOT MET 6. Chair-Bed independent NOT MET 7. Gait on level surface ambulation with use of least restrictive device for at least 300 feet without report of pain nor dyspnea MET 8. Stairs independent while holding onto bilateral rails for at least 10 steps without report of pain nor dyspnea 9. Independent with home exercise program with sister Chantal NOT MET 10. Balance good for static and dynamic standing NOT MET DISCHARGE RECOMMENDATIONS: Patient will benefit from resumption of home health SN/PT/OT skilled services in order to facilitate a smooth transition to home upon discharge, evaluate home safety, reduce fall risk, ensure caregiver education and training for safety, and to establish a functional maintenance program for patient. TREATMENT CODE/TIME: 19395 minutes beginning at 10:07 AM. Thank you for this referral. Rox Brown, PT, DPT, CLT [facility]
== END 2018-06-14 18:41 | disposition home or self-care (01) | DRG 178 ==
LOC: ER 14:32 → MS 18:01
PROVIDERS: Nurse Practitioner; Admitting Provider Internal Medicine; Emergency Provider Student in an Organized Health Care Education/Training Program; PCP Family Medicine; Visit Provider Internal Medicine
DX: J69.0 Pneumonitis due to inhalation of food and vomit; I48.92 Unspecified atrial flutter; R29.6 Repeated falls; G24.01 Drug induced subacute dyskinesia; R13.10 Dysphagia, unspecified; R26.2 Difficulty in walking, not elsewhere classified; T43.505A Adverse effect of unspecified antipsychotics and neuroleptics, initial encounter; F20.9 Schizophrenia, unspecified; F31.9 Bipolar disorder, unspecified; G47.33 Obstructive sleep apnea (adult) (pediatric); E11.9 Type 2 diabetes mellitus without complications; I10 Essential (primary) hypertension; E03.9 Hypothyroidism, unspecified; K21.9 Gastro-esophageal reflux disease without esophagitis; E78.5 Hyperlipidemia, unspecified; F41.8 Other specified anxiety disorders; Z79.4 Long term (current) use of insulin; Z51.5 Encounter for palliative care; Z71.3 Dietary counseling and surveillance
CPT/HCPCS: 36415; 51701; 70544; 80048; 80053; 82550; 92610; 93005; 93306; 96365; 97110; 97162; 97166; 97530; 97535; 99223; 99232; 99233; 99239; 99252; 99254; 99285; J1650; 70450; 70551; 71046; 81003; 83735; 84443; 84484; 85025; 92507; 93010; 93880; J0456; J3475; J3480; J3490

== ENCOUNTER 2018-06-25 16:13 | Inpatient (IN) | payer MEDICARE, MEDICAID, SELFPAY ==
[2018-06-25] VITALS (24 sets, daily range): BP systolic 106–161; BP diastolic 48–81; PULSE 70–182; RESP 14–30; TEMP 36.5–37.5; O2SAT 89–93
--- NOTE | 2018-06-25 16:28 | DI.RAD_ITS ---
SYMPTOM/DIAGNOSIS: RECENT PNEUMONIA PA CHEST: 06/25/18 In comparison with the previous examination of 06/09/18 there appears to have been little interval change in appearance. Mild bilateral intrapulmonary infiltrates are again noted. These are probably chronic. Some component of acute disease not excluded. CONCLUSION: Probably stable appearance of the chest.
[2018-06-25 16:37] LABS: Abs Immature Grans 0.01 k/cumm (0.0-0.09); Absolute Basophil Count 0.02 k/cumm (0.0-0.2); Absolute Eosinophil Count 0.21 k/cumm (0.0-0.7); Absolute Lymphocyte Count 1.42 k/cumm (1.2-3.4); Absolute Monocyte Count 0.42 k/cumm (0.11-0.7); Absolute Neutrophil Count 2.42 k/cumm (1.2-6.7); Basophils % 0.4; Eosinophils % 4.7; HCT 42.1 % (36.0-46.0); HGB 14.3 g/dL (12.0-15.5); Immature Grans % 0.2; Lymphocytes % 31.6; Mean Corpuscular Hemoglobin 31.2 pg (27.0-33.0); Mean Corpuscular Volume 91.9 fL (80-95); Mean Platelet Volume 11.7 fL (8.0-11.0); Monocytes % 9.3; Neutrophils % 53.8; Platelet Count 208 x1000/uL (130-400); RBC 4.58 m/cumm (4.00-5.20); RBC Distribution Width 13.1 % (11.7-14.6)
--- NOTE | 2018-06-25 16:52 | DI.CT_ITS ---
SYMPTOM/DIAGNOSIS: STROKE LIKE SYMPTOMS NONCONTRAST HEAD CT: Noncontrast cranial CT was performed. There is moderate generalized cerebral atrophy. There is no evidence of acute intracranial hemorrhage, mass effect or midline shift. Visualized paranasal sinuses and mastoid air cells are generally clear. Temporal bone structures and orbital structures appear intact. CONCLUSION: No evidence of acute intracranial process.
--- NOTE | 2018-06-25 16:53 | W.ED.GENAD ---
Discharge Plan Disposition Patient Disposition: [facility] INPATIENT Condition: Stable Discharge Details Chief Complaint: CVA/TIA Clinical Impression: Hypomagnesemia, Dysphagia, Hypocalcemia, Adult failure to thrive Primary Care Provider: Lucy Oneill ED Provider: Geovanny Guaman Home Meds and New Rx's Prescriptions: No Action FreeStyle Test 1 EACH strip 1 ea Miscellaneous DAILY RF: 0 propranolol 60 mg capsule,extended release 24 hr 60 mg PO DAILY RF: 0 aspirin 81 mg tablet 81 mg PO DAILY RF: 0 multivitamin tablet 1 tab PO DAILY RF: 0 escitalopram oxalate 20 mg tablet 30 mg PO DAILY RF: 0 levothyroxine 112 MCG tablet 112 mcg PO DAILY RF: 0 Ingrezza 80 mg Capsule 80 mg PO DAILY RF: 0 albuterol sulfate [Ventolin HFA] 200 PUFF HFA aerosol inhaler 2 puff Inhalation Q4H PRNQty: 1 RF: 0 clonazepam 0.5 mg Tablet 0.25 mg PO PRN PRN (Reason: Tremor(S)) RF: 0 simvastatin [Zocor] 20 mg Tablet 20 mg PO HS RF: 0 Dexilant 30 mg Capsule,Biphase Delayed Releas 30 mg PO BID RF: 0 clonazepam 0.5 mg tablet 0.5 mg PO HS RF: 0 triamcinolone acetonide 0.1 % Cream 1 applic topical DAILY RF: 0 cefpodoxime 200 mg tablet 200 mg PO BID Qty: 3 RF: 0 doxycycline hyclate 100 mg tablet,delayed release (DR/EC) 100 mg PO BID Qty: 3 RF: 0 metronidazole [Flagyl] 500 mg tablet 500 mg PO TID Qty: 4 RF: 0 Medical Decision Making This is a 72-year-old female with an extensive past medical history of Bipolar disorder, Schizophrenia, Tardive Dyskinesia, and prior episodes of psychosis, Hypothyroidism, HTN, dyslipidemia, DM, GERD, and ARMAND intolerant of CPAP and a history of ambulatory dysfunction and dysphagia. Who was recently admitted for pneumonia and then discharged roughly a week ago. During her stay she had concern for unilateral facial droop, for which she had an MRI and MRA which were negative for acute process, as well as an echocardiogram, and a carotid ultrasound. She did have a brief paroxysmal episode of atrial flutter, however after discussing risks and benefits of anticoagulation secondary to her multiple recurrent falls, anticoagulation was decided to be held off. Home health comes and visits twice a week. She presents today with family because over the last 2 days she has gotten progressively weaker, now she no longer is able to take any of her food by mouth, they put the food and crush pills in her mouth sounds out. She is unable to swallow well, with worsening of her chronic dysphasia. Family did notice left-sided facial droop still, and with a constellation of her symptoms came in out of concern that they can no longer care for her adequately. Physical exam here demonstrates relatively benign vital signs with no tachycardia, or hypotension. She is slightly hypoxic. She demonstrates notable parkinsonian and tardive dyskinesia-like symptoms with pill-rolling, tremor, smacking of lips. Neurologic exam aside for the facial droop that appear to show any significant acute change otherwise. Chest x-ray labs and intracranial imaging were ordered. CT head and CT angios head demonstrate no acute process or stroke. Chest x-ray shows interval improvement of the pneumonia, laboratory workup demonstrates no significant white count, or electrolyte abnormality aside for slightly low calcium and slightly low magnesium. Troponin and EKG appear benign. I had a long conversation with the family including the of the patient's sister herself Chantal, who is in the main designated caregiver and medical decision maker. Discussed the potential end-stage of this disease as well as the potential end-of-life component as well. Also discussed the case with case management. With the family's inability to care for the patient at home, with the patient's notable worsening of her chronic symptomatology, I do feel that she would benefit from admission, and palliative care consult. I discussed this with the family and they agree with this plan. Patient may require placement, or be transitioned to comfort measures/hospice. Family would like a formal sit down with the operator specialist communications for evaluation of option. Contact the hospitalist for admission. We have corrected the electrolytes here in the ED, with no white count, fever, and interval improvement on chest x-ray do not think that additional antibiotics are indicated at this time. 8:32 PM Discussed the case with , he agrees with the assessment and plan. He has requested a put in bridging orders which have been done. I have extensively reviewed the treatment plan with the patient. I have addressed all patient concerns at this time. I have also discussed the plan with the admitting physician and they agree with the current assessment and plan and have agreed to assume responsibility for the patient. All parties demonstrate verbal understanding and agreement with our assessment and plan at this time. EKG 16: 20 Rate 88, OK 150, QTc 457, QRS 100, sinus rhythm, no significant ST elevations or depressions. Notable artifact secondary to the patient's tremulous nature from her Parkinson's. No evidence of STEMI. Findings: Lungs: Areas of mild interstitial prominence bilaterally. No alveolar infiltrate. Pleural space: No pleural fluid collection. Heart/Mediastinum: Unremarkable. No cardiomegaly. Bones/joints: Old right-sided rib fractures. Impression: No active pulmonary disease. Interval resolution of patches of left lung infiltrate. Dictated and Authenticated by: Arnol Brown MD. Ordering:YU Small MD Findings: Brain: A few scattered small areas of decreased density in the periventricular white matter which are likely secondary to chronic ischemia from microvascular change. No acute intracranial hemorrhage. Diffuse cerebral atrophy. No mass effect or midline shift. No extra-axial fluid collection. Ventricles: Ventricular prominence in this patient with diffuse cerebral atrophy. Bones/joints: Unremarkable. No acute fracture. Sinuses: Maxillary sinus and minimal areas of mucoperiosteal thickening Mastoid air cells: No mastoiditis. Soft tissues: Unremarkable. Vasculature: Arterial calcification. Impression: 1. No acute intracranial findings. 2. No acute changes compared to 06/09/2018. 3. ASPECT ([place] Stroke Program Early CT Score) = 10. Dictated and Authenticated by: Arnol Brown MD. Ordering:YU Small MD Findings: VASCULATURE: Right common carotid artery: Normal. No significant stenosis. No dissection or occlusion. Right internal carotid artery: Minimal calcific plaque in the right carotid bulb region without stenosis. Minimal calcific plaque within the proximal right internal carotid artery without stenosis. Right external carotid artery: Normal. No occlusion or significant stenosis. Right vertebral artery: Normal. No significant stenosis. No dissection or occlusion. Left common carotid artery: Normal. No significant stenosis. No dissection or occlusion. Left internal carotid artery: Small amount of calcific plaque within the left carotid bulb region without significant stenosis. Small amount of calcific plaque within the proximal left internal carotid artery without stenosis. Left external carotid artery: Normal. No occlusion or significant stenosis. Left vertebral artery: Normal. No significant stenosis. No dissection or occlusion. NECK: Bones/joints: No acute fracture. Soft tissues: Normal. No significant soft tissue swelling. Lungs: Faint patches of ground glass infiltrate within each superior lung which may reflect volume loss or an inflammatory process. Impression: No significant arterial stenosis. No arterial dissection. COMMENT: Reference per NASCET criteria for degree of stenosis: Mild: less than 50% stenosis. Moderate: 50-69% stenosis. Severe: 70-94% stenosis. Near occlusion: 95-99% stenosis. Dictated and Authenticated by: Arnol Brown MD. Ordering:YU Small MD Findings: Right internal carotid artery: Unremarkable. Intracranial segment is patent with no significant stenosis. No aneurysm. Right anterior cerebral artery: Unremarkable. No occlusion or significant stenosis. No aneurysm. Right middle cerebral artery: Unremarkable. No occlusion or significant stenosis. No aneurysm. Right posterior cerebral artery: Patent right posterior cerebral artery. origin of the right posterior cerebral artery. Right vertebral artery: Small-caliber cephalad portion of the right vertebral artery. Left internal carotid artery: Unremarkable. Intracranial segment is patent with no significant stenosis. No aneurysm. Left anterior cerebral artery: Unremarkable. No occlusion or significant stenosis. No aneurysm. Left middle cerebral artery: Unremarkable. No occlusion or significant stenosis. No aneurysm. Left posterior cerebral artery: Patent left posterior cerebral artery. origin of the left posterior cerebral artery. Left vertebral artery: Unremarkable. No occlusion or significant stenosis. No aneurysm. Basilar artery: Unremarkable. No occlusion or significant stenosis. No aneurysm. Impression: CTA head within normal limits. HPI General Date/Time Provider Initiated Documentation: 06/25/18 16:14. HPI Narrative: This is a 72-year-old female with past medical history of Bipolar disorder, Schizophrenia, Tardive Dyskinesia, and prior episodes of psychosis, Hypothyroidism, HTN, dyslipidemia, DM, GERD, and ARMAND intolerant of CPAP and a history of ambulatory dysfunction and dysphagia. Who was recently admitted for pneumonia and then discharged roughly a week ago. During her stay she had concern for unilateral facial droop, for which she had an MRI and MRA which were negative for acute process, as well as an echocardiogram, and a carotid ultrasound. She did have a brief paroxysmal episode of atrial flutter, however after discussing risks and benefits of anticoagulation secondary to her multiple recurrent falls, anticoagulation was decided to be held off. Home health comes and visits twice a week. She presents today with family concern for worsening of her symptoms, including inability to take any of her pills or eat or drink at all. Family had been crushing up her pills and food and feeding it with thickened liquids, however starting 48 hours ago she has been unable to do this. As soon as a put it in her mouth he just falls out. She is unable to swallow or drink anything for the last day and 1/2-2 days. They noticed the return of her mild left-sided facial droop, and continued weakness, she has been unable to walk or ambulate or care for herself at all. Family feels overwhelmed and they are concerned that they are not able to take care of her. Family denies any new falls, or other changes. No other additional modifying factors. Related Data Home Medications Medication Instructions Recorded Confirmed FreeStyle Test strip 06/04/16 05/18/18 levothyroxine 112 mcg PO DAILY 11/04/17 06/09/18 Ingrezza 80 mg PO DAILY 05/18/18 06/09/18 albuterol sulfate [Ventolin HFA] 2 puff INHALATION Q4H PRN #1 inh 05/18/18 06/09/18 aspirin 81 mg tablet 81 mg PO DAILY 05/25/18 06/09/18 escitalopram 20 mg tablet 30 mg PO DAILY tab-cap 05/25/18 06/09/18 multivitamin tablet 1 tab PO DAILY 05/25/18 06/09/18 propranolol ER 60 mg capsule,24 60 mg PO DAILY 05/25/18 06/09/18 hr,extended release Dexilant 30 mg PO BID 06/09/18 06/09/18 clonazepam 0.25 mg PO PRN PRN 06/09/18 06/09/18 clonazepam 0.5 mg PO HS 06/09/18 06/09/18 simvastatin [Zocor] 20 mg PO HS 06/09/18 06/09/18 triamcinolone acetonide 1 applic TOPICAL DAILY 06/09/18 06/09/18 cefpodoxime 200 mg PO BID #3 tab 06/14/18 doxycycline hyclate 100 mg PO BID #3 tab 06/14/18 metronidazole [Flagyl] 500 mg PO TID #4 tab 06/14/18 Previous Rx's Medication Instructions Recorded albuterol sulfate [Ventolin HFA] 2 puff INHALATION Q4H PRN #1 inh 05/18/18 cefpodoxime 200 mg PO BID #3 tab 06/14/18 doxycycline hyclate 100 mg PO BID #3 tab 06/14/18 metronidazole [Flagyl] 500 mg PO TID #4 tab 06/14/18 Allergies Allergy/AdvReac Type Severity Reaction Status Date / Time codeine Allergy Severe Unverified 06/25/18 16:21 Penicillins Allergy Severe Unverified 06/25/18 16:21 bupropion Allergy Intermediate Unverified 06/25/18 16:21 tetrabenazine Allergy Intermediate Skin Rash Unverified 06/25/18 16:21 lisinopril Allergy Mild Unverified 06/25/18 16:21 oxybutynin chloride Allergy Unverified 06/25/18 16:21 [From Ditropan] General Stated Complaint: CVA/TIA VIRGIE: 2 Review of Systems Review of Systems All systems reviewed & are unremarkable except as noted in HPI and below PFSH Social History Smoking/Tobacco Use Status: Never Alcohol Intake: never Drug use: Never Substance use type: does not use Housing: assisted living facility Number of Children: 8 Do you feel safe in your relationship?: Yes Additional Social history: She attends [employer] 3x per week. Exam Narrative Exam Narrative: 1.Const: Elderly, notably tremulous, appears notably deconditioned. 2.Eyes: PERRL, no conjunctival injection, and symmetrical lids. 3.ENT: Atraumatic external nose and ears. Very dry MM. Neck: Symmetric, trachea midline, No thyromegaly. Rapid lip smacking left-sided facial droop does appear to be present when the patient does smile, no evidence of forehead involvement. Per family and review of previous records though this appears to be questionably chronic and not acute. 4.CVS: +S1/S2, No murmurs or gallops. Peripheral pulses 2+ and equal in all extremities. Brisk capillary refill in all extremities. 5.RESP: Unlabored respiratory effort. Mild crackles in the bases. 6.GI: Soft, Nontender/Nondistended, No hepatosplenomegaly. No guarding or rebound. 7.MSK: Normocephalic/Atraumatic, Extremities w/o deformity or ttp No cyanosis or clubbing. Significant tremulousness of all extremities, notable pill-rolling of the fingers. Strength in lower extremities is 3 out of 5 bilaterally, and 4 out of 5 bilaterally in the upper extremities. 8.Skin: Warm, Dry. No rashes or lesions. 9.Neuro: Cranial nerves intact aside for evidence of appears to be left-sided facial droop. Patient is able to move all extremities, however exam is notably complicated by tremulousness, and parkinsonian and tardive dyskinesia-like symptoms. She is able to perform [id number] but with significant difficulty, however symptoms are symmetric. She is able to perform some rapid alternating movements but with significant challenge. She is unable to ambulate. Unable to perform heel to anthony. No pronator drift. 10.Psych: (AAO) x3. Appropriate mood and affect Course Vital Signs Temperature 37.2 C 06/25/18 16:16 Pulse 82 06/25/18 16:16 Respiratory Rate 18 06/25/18 16:16 Blood Pressure 132/73 06/25/18 16:16 Pulse Oximetry 92 L 06/25/18 16:16 Temperature 37.2 C 06/25/18 16:16 Temperature Source Skin 06/25/18 16:16 Pulse 82 06/25/18 16:16 Respiratory Rate 30 H 06/25/18 16:25 Respiratory Effort 06/25/18 16:25 Respiratory Depth Normal 06/25/18 16:25 Respiratory Pattern Normal 06/25/18 16:25 Blood Pressure 132/73 06/25/18 16:16 Pulse Oximetry 92 L 06/25/18 16:16 Oxygen Delivery Method Room Air 06/25/18 16:16 Oxygen Flow Rate 0 06/25/18 16:16 Pain Level 0 06/25/18 16:16 Lab/Test Results Lab/Test Results: Laboratory Tests Range/Units 06/25/18 16:30 WBC (4.4-10.8) k/cumm 4.50 RBC (4.00-5.20) m/cumm 4.58 Hgb (12.0-15.5) g/dL 14.3 Hct (36.0-46.0) % 42.1 MCV (80-95) fL 91.9 MCH (27.0-33.0) pg 31.2 MCHC (32.0-36.0) g/dL 34.0 RDW (11.7-14.6) % 13.1 Plt Count (130-400) x1000/uL 208 MPV (8.0-11.0) fL 11.7 H Immature Gran % 0.2 Neutrophils % 53.8 Lymphocytes % 31.6 Monocytes % 9.3 Eosinophils % 4.7 Basophils % 0.4 Absolute Neutrophils (1.2-6.7) k/cumm 2.42 Absolute Lymphocytes (1.2-3.4) k/cumm 1.42 Absolute Monocytes (0.11-0.7) k/cumm 0.42 Absolute Eosinophils (0.0-0.7) k/cumm 0.21 Absolute Basophils (0.0-0.2) k/cumm 0.02
--- NOTE | 2018-06-25 16:59 | DI.VRAD_ITS ---
EXAM: CT Head Without Contrast EXAM DATE/TIME: 06/25/2018 4:30 PM CLINICAL HISTORY: 72 years old, female; Stroke-like symptoms TECHNIQUE: Imaging protocol: Axial computed tomography images of the head/brain without contrast. Coronal and sagittal reformatted images were created and reviewed. STROKE PROTOCOL was implemented. Radiation optimization: All CT scans at this facility use at least one of these dose optimization techniques: automated exposure control; mA and/or kV adjustment per patient size (includes targeted exams where dose is matched to clinical indication); or iterative reconstruction. COMPARISON: CT HEAD WO 06/09/2018 3:07 PM FINDINGS: Brain: A few scattered small areas of decreased density in the periventricular white matter which are likely secondary to chronic ischemia from microvascular change. No acute intracranial hemorrhage. Diffuse cerebral atrophy. No mass effect or midline shift. No extra-axial fluid collection. Ventricles: Ventricular prominence in this patient with diffuse cerebral atrophy. Bones/joints: Unremarkable. No acute fracture. Sinuses: Maxillary sinus and minimal areas of mucoperiosteal thickening Mastoid air cells: No mastoiditis. Soft tissues: Unremarkable. Vasculature: Arterial calcification. IMPRESSION: 1. No acute intracranial findings. 2. No acute changes compared to 06/09/2018. 3. ASPECT ([place] Stroke Program Early CT Score) = 10. Dictated and Authenticated by: Arnol Brown MD. Ordering:YU Small MD
--- NOTE | 2018-06-25 17:42 | DI.CT_ITS ---
SYMPTOMS/DIAGNOSIS: STROKE-LIKE SYMPTOMS, FAILURE TO THRIVE CTA OF THE NECK AND BRAIN: NECK: The right common carotid artery is unremarkable without evidence of stenosis. The right external carotid artery is unremarkable. The right vertebral artery is unremarkable. The left common carotid artery is normal. Left internal carotid artery reveals a small quantity of calcific plaque within the bulb without significant stenosis. The left external carotid artery is normal. The left vertebral artery is normal. Note is made of no acute bony abnormality in the neck. The soft tissues are unremarkable. Faint areas of ground-glass densities are noted within the superior portions of the lung, which could reflect a volume loss or an inflammatory process. SUMMARY: No significant arterial stenosis. No evidence of arterial dissection in the neck. BRAIN: The right internal carotid artery is unremarkable. The right anterior cerebral and middle cerebral arteries are unremarkable. The right posterior cerebral artery is patent. Note is made of origin of the right posterior cerebral artery. A small caliber cephalad portion of the right vertebral artery is identified. The left internal carotid artery is unremarkable. The left anterior cerebral artery and left middle cerebral artery are unremarkable. The left posterior cerebral artery is patent. origin of the left posterior cerebral artery is noted. The left vertebral artery is unremarkable. The basilar artery is unremarkable without evidence of an aneurysm or stenosis.
[2018-06-25] MEDS: Omnipaque 350 MG/ML 100 ML BTL IJ (17:47)
[2018-06-25] MEDS: Normal Saline 1,000 ML 1000 ML IV (17:55)
--- NOTE | 2018-06-25 17:56 | DI.VRAD_ITS ---
EXAM: XR Chest, 1 View EXAM DATE/TIME: 06/25/2018 5:12 PM CLINICAL HISTORY: 72 years old, female; Recent pneumonia TECHNIQUE: Imaging protocol: XR of the chest, 1 view. COMPARISON: SC XR CHEST 2V PA LATERAL 06/09/2018 3:20 PM FINDINGS: Lungs: Areas of mild interstitial prominence bilaterally. No alveolar infiltrate. Pleural space: No pleural fluid collection. Heart/Mediastinum: Unremarkable. No cardiomegaly. Bones/joints: Old right-sided rib fractures. IMPRESSION: No active pulmonary disease. Interval resolution of patches of left lung infiltrate. Dictated and Authenticated by: Arnol Brown MD. Ordering:YU Small MD
--- NOTE | 2018-06-25 18:10 | DI.VRAD_ITS ---
EXAM: CT Angiography Head With Contrast EXAM DATE/TIME: 06/25/2018 4:30 PM CLINICAL HISTORY: 72 years old, female; Weakness; Stroke-like symptoms. TECHNIQUE: Imaging protocol: Axial computed tomographic angiography images of the head with intravenous contrast using CT angiography protocol. 3D rendering: MIP reconstructed images were created and reviewed. Radiation optimization: All CT scans at this facility use at least one of these dose optimization techniques: automated exposure control; mA and/or kV adjustment per patient size (includes targeted exams where dose is matched to clinical indication); or iterative reconstruction. Contrast material: OMNI-PAQUE 350 Contrast volume: 84 ml Contrast route: IV COMPARISON: CT HEAD WO 06/25/2018 4:42 PM FINDINGS: Right internal carotid artery: Unremarkable. Intracranial segment is patent with no significant stenosis. No aneurysm. Right anterior cerebral artery: Unremarkable. No occlusion or significant stenosis. No aneurysm. Right middle cerebral artery: Unremarkable. No occlusion or significant stenosis. No aneurysm. Right posterior cerebral artery: Patent right posterior cerebral artery. origin of the right posterior cerebral artery. Right vertebral artery: Small-caliber cephalad portion of the right vertebral artery. Left internal carotid artery: Unremarkable. Intracranial segment is patent with no significant stenosis. No aneurysm. Left anterior cerebral artery: Unremarkable. No occlusion or significant stenosis. No aneurysm. Left middle cerebral artery: Unremarkable. No occlusion or significant stenosis. No aneurysm. Left posterior cerebral artery: Patent left posterior cerebral artery. origin of the left posterior cerebral artery. Left vertebral artery: Unremarkable. No occlusion or significant stenosis. No aneurysm. Basilar artery: Unremarkable. No occlusion or significant stenosis. No aneurysm. IMPRESSION: CTA head within normal limits. EXAM: CT Angiography Neck With Contrast EXAM DATE/TIME: 06/25/2018 4:30 PM CLINICAL HISTORY: 72 years old, female; Weakness; Stroke-like symptoms. TECHNIQUE: Imaging protocol: Axial computed tomographic angiography images of the neck with intravenous contrast using CT angiography protocol. 3D rendering: MIP reconstructed images were created and reviewed. Radiation optimization: All CT scans at this facility use at least one of these dose optimization techniques: automated exposure control; mA and/or kV adjustment per patient size (includes targeted exams where dose is matched to clinical indication); or iterative reconstruction. Contrast material: OMNI-PAQUE 350 Contrast volume: 84 ml Contrast route: IV COMPARISON: CT HEAD WO 06/25/2018 4:42 PM FINDINGS: VASCULATURE: Right common carotid artery: Normal. No significant stenosis. No dissection or occlusion. Right internal carotid artery: Minimal calcific plaque in the right carotid bulb region without stenosis. Minimal calcific plaque within the proximal right internal carotid artery without stenosis. Right external carotid artery: Normal. No occlusion or significant stenosis. Right vertebral artery: Normal. No significant stenosis. No dissection or occlusion. Left common carotid artery: Normal. No significant stenosis. No dissection or occlusion. Left internal carotid artery: Small amount of calcific plaque within the left carotid bulb region without significant stenosis. Small amount of calcific plaque within the proximal left internal carotid artery without stenosis. Left external carotid artery: Normal. No occlusion or significant stenosis. Left vertebral artery: Normal. No significant stenosis. No dissection or occlusion. NECK: Bones/joints: No acute fracture. Soft tissues: Normal. No significant soft tissue swelling. Lungs: Faint patches of ground glass infiltrate within each superior lung which may reflect volume loss or an inflammatory process. IMPRESSION: No significant arterial stenosis. No arterial dissection. COMMENT: Reference per NASCET criteria for degree of stenosis: Mild: less than 50% stenosis. Moderate: 50-69% stenosis. Severe: 70-94% stenosis. Near occlusion: 95-99% stenosis. Dictated and Authenticated by: Arnol Brown MD. Ordering:YU Small MD
[2018-06-25] MEDS: ACETAMINOPHEN 1,000 MG/100 ML BTL 400 MG IVPB (18:17)
[2018-06-25 18:40] LABS: ALT 24 U/L (12-78); AST 28 U/L (15-37); Alkaline Phosphatase 72 U/L (46-116); BUN 7 mg/dL (7-18); Bilirubin, Total 0.5 mg/dL (0.2-1.0); CREATININE 0.74 mg/dL (0.55-1.02); Calcium 8.3 mg/dL (8.5-10.1); Chloride 106 mmol/L (98-107); Glucose 104 mg/dL (70-100); Magnesium 1.5 mg/dL (1.8-2.4); Potassium 3.7 mmol/L (3.5-5.1); Sodium 142 mmol/L (136-145); Total Protein 6.5 g/dL (6.4-8.2)
[2018-06-25 18:49] LABS: Troponin I < 0.02 ng/mL (0.00-0.06)
[2018-06-25] MEDS: MAGNESIUM SULFATE 1 GM/100 ML BAG IVPB (19:08)
[2018-06-25] MEDS: Normal Saline Flush 10 ML SYR IVP (19:09)
--- NOTE | 2018-06-25 23:46 | HPE_ITS ---
Date of service: 06/25/18 Time of Service: 23:46 Assessment and Plan (1) Dysphagia, unspecified: Current visit: No Status: Chronic consult S.T. to evaluate and treat dysphagia. If patient is unable to tolerate any oral diet w/out risk of aspiration, then the patient and her family will need to come to terms w/ either prolonged period of starvation and her eventual demise or to proceed w/ PEG tube for enteral nutritional support. Hopefully she can tolerate some form of dysphagia diet. Qualifiers: Dysphagia type: unspecified Qualified Code(s): R13.10 - Dysphagia, unspecified (2) Hypertension: Current visit: No Status: Chronic I have changed her propranolol to iv lopressor Qualifiers: Hypertension type: essential hypertension Qualified Code(s): I10 - Essential (primary) hypertension (3) Type 2 diabetes mellitus: Current visit: No Status: Chronic I will place her on insulin sensitive corrective Novolog scale and monitor her glucose readings Q6hrs. (4) GERD (gastroesophageal reflux disease): Current visit: No Status: Chronic will put her on iv Protonix rather then her oral Dexilant (5) Ambulatory dysfunction: Current visit: No Status: Chronic consult P.T. to evaluate and treat her for generalized deconditioning and ambulatory dysfunction. (6) Schizophrenia: Current visit: No Status: Chronic until she can tolerate po or have a feeding tube, her oral antidepressant and antipsychotic meds are on hold. We can use prn haldol although with her T.D. I am reluctant to do so unless she has severe behavioral outbursts. History of Present Illness Chief Complaint: dysphagia, failure to thrive Narrative: 72 yr old female w/ PMH schizophrenia, bipolar disorder, tardive dyskinesia, HTN, DM, GERD, ARMAND, hypothyroidism who was recently treated at [facility] for aspiration pneumonia, dysphagia, and paroxysmal atrial flutter and during that time had stroke workup for facial droop. Extensive workup for CVA was negative (MRI/MRA brain, echo, carotid US). She was discharged home to the care of her sister and [id number] with help from visiting nurse. She was an inpatient from 06/09- 06/14/2018. She was brought to the emergency room today by her family due to progressive weakness and not able to tolerate oral feedings. Her family reported to Dr. Guaman, emergency room attending, that the patient has not been able to swallow her food or her crushed pills but the food pools in her mouth. They do not feel that they can care for her at home any longer. Workup in the ER included routine labs including CBC, CMP, Mg, troponin. All her labs were essentially normal except low calcium, low magnesium and low albumin. Mg was 1.5 and was treated w/ iv magnesium 1 gm and her calcium was low at 8.3 and was treated w/ calcium gluconate although when the level is corrected for her albumin level of 3.0 her calcium actually would be normal (corrects to 9.1). CBC showed no leukocytosis nor anemia. CTA of her head and neck showed no acute pathology. CXR showed no active pulmonary disease. There had been resolution of previously seen left alveolar infiltrates. The patient is now admitted for failure to thrive d/t progressive Parkinsonism causing her dysphagia and malnutrition. Dr. Guaman talked w/ the family about the need to involve Palliative medicine to help guide them in the decision making process of her terminal supervisor care and he discussed w/ them the need for SNF placement. Review of Systems Review of Systems Unobtainable due to mental condition [facility] Medical History Developmental delay, borderline (Chronic) Migraine headache without aura (Chronic) Osteoporosis (Chronic) Depression with anxiety (Chronic) Chronic low back pain (Chronic) Osteoarthritis (Chronic) Hypothyroidism (Chronic) Arias's esophagus (Chronic) GERD (gastroesophageal reflux disease) (Chronic) Obstructive sleep apnea on CPAP (Chronic) Type 2 diabetes mellitus (Chronic) Hyperlipidemia (Chronic) Hypertension (Chronic) Urgency incontinence (Chronic 05/01/15) Tardive dyskinesia (Chronic 01/26/17) 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) Sensorineural hearing loss, bilateral (Chronic 01/07/15) Dysphagia, unspecified (Chronic 06/22/16) Surgical History H/O bilateral cataract extraction (Acute) H/O umbilical hernia repair (Acute) History of hysterectomy with bilateral oophorectomy (Acute) S/P cholecystectomy (Acute) H/O tubal ligation (Chronic) Family History Father Tremor Brother Tremor Sister Tremor Mother Heart disease Hypertension Sister Breast cancer Sister Stomach cancer Social History Smoking/Tobacco Use Status: Never Alcohol Intake: never Drug use: Never Substance use type: does not use Housing: assisted living facility Number of Children: 8 Do you feel safe in your relationship?: Yes Additional Social history: She attends [employer] 3x per week. Meds Home Medications Medication Instructions Recorded Confirmed Type FreeStyle Test strip 06/04/16 05/18/18 History levothyroxine 112 mcg PO DAILY 11/04/17 06/25/18 History Ingrezza 80 mg PO DAILY 05/18/18 06/25/18 History aspirin 81 mg tablet 81 mg PO DAILY 05/25/18 06/25/18 History escitalopram 20 mg tablet 30 mg PO DAILY tab-cap 05/25/18 06/25/18 History multivitamin tablet 1 tab PO DAILY 05/25/18 06/25/18 History propranolol ER 60 mg capsule,24 60 mg PO DAILY 05/25/18 06/25/18 History hr,extended release Dexilant 30 mg PO BID 06/09/18 06/25/18 History clonazepam 0.25 mg PO PRN PRN 06/09/18 06/25/18 History clonazepam 0.5 mg PO HS 06/09/18 06/25/18 History simvastatin [Zocor] 20 mg PO HS 06/09/18 06/25/18 History triamcinolone acetonide 1 applic TOPICAL DAILY 06/09/18 06/25/18 History albuterol sulfate [Ventolin HFA] 2 puff INHALATION .Q4H,PRN PRN 06/25/18 06/25/18 History Allergies Allergy/AdvReac Type Severity Reaction Status Date / Time codeine Allergy Severe Unverified 06/25/18 16:21 Penicillins Allergy Severe Unverified 06/25/18 16:21 bupropion Allergy Intermediate Unverified 06/25/18 16:21 tetrabenazine Allergy Intermediate Skin Rash Unverified 06/25/18 16:21 lisinopril Allergy Mild Unverified 06/25/18 16:21 oxybutynin chloride Allergy Unverified 06/25/18 16:21 [From Ditropan] Exam Const General: cooperative and ill appearing chronically Nutritional Appearance: average body habitus Orientation: alert, awake, not oriented x3 and confused Limitations: altered mental status [facility] Head: normal to inspection, no palpable skull fracture, normocephalic and atraumatic Ears: hearing grossly normal bilaterally General nose exam: mucous membranes and turbinates abnormal other (dry) Face and sinus: normal facial exam and sinuses nontender Mouth: other (dry mucous membranes) Eyes General: appearance normal, both eyes and all related structures Alignment and Position: alignment normal Periorbital: periorbital findings normal Eyelids: eyelids normal Conjunctivae: conjunctivae normal Sclera: sclerae normal Cornea: corneas normal Pupils: PERRL EOM: EOM intact bilaterally Direct ophthalmoscopy: normal light reflex Neck Neck: normal visual inspection, full ROM, no lymphadenopathy, no meningeal signs, trachea midline, supple and no JVD Thyroid: thyroid normal Carotids: normal carotid upstroke Resp Effort & Inspection: normal respiratory effort and able to speak in complete sentences Auscultation: clear to auscultation bilaterally Cardio Jugular venous pressure: no JVD Palpation: normal PMI Rate: regular rate Rhythm: regular rhythm Heart Sounds: S1 normal, S2 normal, normal, physiologic split S2 and no murmurs Pulses: normal peripheral pulses GI Inspection: normal to inspection and obesity Palpation: soft and no hepatosplenomegaly Percussion: normal to percussion Auscultation: normal bowel sounds Back/Spine/Pelvis Back: no CVA tenderness Cervical Spine: normal cervical lordosis Thoracic/Lumbar Spine: thoracic and lumbar spine normal to inspection Skin General skin exam: no rashes or lesions noted, elasticity normal and turgor normal Lesions: no lesions Rashes: no rashes Wounds: no wounds Neuro General: awake, oriented Patient Orientation: Confused and moves all extremities Cognition: abnormal cognition Speech: abnormal speech (slow slurred speech) Motor: muscle tone normal throughout, movement abnormality noted tardive dyskinesia and other (resting tremors w/ pill rolling action of her hands), tremor (resting tremors in her hands including pill rolling) and muscle tone abnormal (cogwheel rigidity in her arms) Sensory Exam: no sensory deficits noted Extrem General: normal to inspection, full ROM, normal capillary refill, no joint enlargement and no clubbing, cyanosis or edema Psych Appearance: well kempt Mental Status: other (grossly abnormal w/ impaired cognition, unable to participate in discuss.) Speech and Movement: restless, slowed movement and slurred speech Mood: other (grossly abnormal w/ impaired cognition, unable to participate in discuss.) Affect: labile affect Attitude: cooperative Thought Process: circumstantial Results Imaging Chest x-ray: report reviewed (IMPRESSION: No active pulmonary disease. Interval resolution of patches of left lung infiltrate. Dictated and Authenticated by: Arnol Brown MD.) Additional studies: CTA head: IMPRESSION: CTA head within normal limits CTA neck: IMPRESSION: No significant arterial stenosis. No arterial dissection. Labs : 06/25/18 16:30 06/26/18 04:15 Laboratory Results - last 24 hr 06/25/18 06/25/18 06/25/18 16:30 16:30 18:15 WBC 4.50 RBC 4.58 Hgb 14.3 Hct 42.1 MCV 91.9 MCH 31.2 MCHC 34.0 RDW 13.1 Plt Count 208 MPV 11.7 H Immature Gran % 0.2 Neutrophils % 53.8 Lymphocytes % 31.6 Monocytes % 9.3 Eosinophils % 4.7 Basophils % 0.4 Absolute Neutrophils 2.42 Absolute Lymphocytes 1.42 Absolute Monocytes 0.42 Absolute Eosinophils 0.21 Absolute Basophils 0.02 Sodium Cancelled 142 Potassium Cancelled 3.7 Chloride Cancelled 106 Carbon Dioxide Cancelled 29.0 Anion Gap Cancelled 7.0 BUN Cancelled 7 Creatinine Cancelled 0.74 Estimated GFR/1.73 m2 Cancelled >= 60.00 Glucose Cancelled 104 H Calcium Cancelled 8.3 L Magnesium Cancelled 1.5 L Total Bilirubin Cancelled 0.5 AST Cancelled 28 ALT Cancelled 24 Alkaline Phosphatase Cancelled 72 Troponin I Cancelled < 0.02 Total Protein Cancelled 6.5 Albumin Cancelled 3.0 L Last Vital Signs Temp 37.5 C 06/25/18 20:49 Pulse 81 06/25/18 20:49 Resp 18 06/25/18 20:49 BP 124/56 L 06/25/18 20:49 Pulse Ox 92 L 06/25/18 20:49
[2018-06-26] VITALS (20 sets, daily range): BP systolic 114–188; BP diastolic 61–83; PULSE 64–85; RESP 18–20; TEMP 36.6–37.8; O2SAT 92–96
[2018-06-26] MEDS: Metoprolol 5 MG/5 ML VIAL 2.5 MG IVP ×4 (00:24→18:27)
[2018-06-26] MEDS: MAGNESIUM SULFATE 2 GM/50 ML BAG IVPB (00:25)
[2018-06-26] MEDS: Normal Saline Flush 10 ML SYR IVP ×4 (00:26→18:28)
[2018-06-26 04:39] LABS: Anion Gap 7.7 mmol/L (3-11); BUN 6 mg/dL (7-18); CO2 30.3 mmol/L (21.0-32.0); CREATININE 0.75 mg/dL (0.55-1.02); Calcium 8.5 mg/dL (8.5-10.1); Chloride 106 mmol/L (98-107); Glucose 131 mg/dL (70-100); Magnesium 2.5 mg/dL (1.8-2.4); Potassium 3.4 mmol/L (3.5-5.1); Sodium 144 mmol/L (136-145)
[2018-06-26 04:50] LABS: Troponin I < 0.02 ng/mL (0.00-0.06)
[2018-06-26] MEDS: Levothyroxine 100 MCG VIAL 56 MCG IVP (05:21)
[2018-06-26] MEDS: Pantoprazole 40 MG VIAL IVP (08:46)
[2018-06-26] MEDS: Aspirin 300 MG SUPP PR (08:46)
[2018-06-26] MEDS: Enoxaparin 40 MG/0.4 ML SYR SC (08:46)
[2018-06-26] MEDS: POTASSIUM CHLORIDE 20 MEQ/100 ML BAG 50 MEQ IVPB ×3 (08:47→18:27)
[2018-06-26 09:00] LABS: Troponin I < 0.02 ng/mL (0.00-0.06)
--- NOTE | 2018-06-26 10:32 | IN_ITS ---
Date of service: 06/26/18 Time of Service: 10:10 PT Notes Inpatient Physical Therapy Evaluation Date: 06/26/18 Referring Doctor: Dr. Aquino PT Orders: PT CONSULT: Evaluate and treat for generalized weakness and deconditioning; poor ambulation and poor transfers Precautions: Fall, standard Patient Profile/Admitting Diagnosis: Patient admitted after presenting to the emergency room with family complaining of progressive weakness. She had a recent hospital stay, discharged 06/15/2018, after treatment for dysphagia and atrial flutter. She returned to her sister and [id number]'s home upon discharge. PMHX: Medical History Daniel's esophagus Chronic low back pain Depression with anxiety Development delay, borderline Dysphagia GERD Hyperlipidemia Hypertension Hypothyroidism Migraine headache without aura Obstructive sleep apnea on CPAP Osteoarthritis Osteoporosis Sensorineural hearing loss (bilateral) Tardive dyskinesia Type 2 Diabetes Mellitus Urgency incontinence Schizophrenia Social History/Home Situation: Philomena currently lives with her sister Chantal since February of last year who provides assistance with ADLs. Per last admission, sister had reported that Philomena goes to adult daycare via [employer] on a d aily basis from Mondays through Fridays. At her sister's house, there are 4 steps to enter without rails but sister is able to provide minimal assistance to Philomena in and out of the house. Patient has had 3 falls the past 12 months. Equipment Owned/DME: hospital bed, 4WW. Subjective: Philomena is agreeable to PT consultation today. She denies pain, stating that she feels weak. Objective: General Observation: Sitting in chair with IV to right upper extremity. Patient has a resting tremor of the upper extremities and jaw Mental Status: A and O with severe dysarthria Pain: Denies ROM: Right Upper Extremity: Shoulder flexion allows 135 degrees actively. Elbow and wrist motion are WFL. Left Upper Extremity: Shoulder flexion allows 135 degrees actively. Elbow and wrist motion are WFL. Right Lower Extremity: WFL Left Lower Extremity: WFL Strength: Right Upper Extremity: Shoulder flexion 4-/5. Biceps 3+/5. Marketing And Outreach Coordinator is weak but equal, with exacerbation of tremor with gripping activities Left Upper Extremity: Shoulder flexion 4-/5. Biceps 3+/5. Marketing And Outreach Coordinator is weak but equal, with exacerbation of tremor with gripping activities Right Lower Extremity: Flexion 3/5. Quads 4-/5. Ankle dorsiflexion 4-/5. Left Lower Extremity: Flexion 3/5. Quads 4-/5. Ankle dorsiflexion 4-/5. Bed Mobility/Transfers: Stand: Min assist Stand to sit: Min assist Bed to chair: Mod assist with FW W Gait: Patient ambulates 6 feet with FW W, mod assist of 1, maximal cues for advancement of the lower extremities. Patient has freezing episodes during turning, requiring max verbal and tactile cues. Balance: Static Sitting: Good Dynamic Sitting: fair Static Standing: fair Dynamic Standing: Poor Special Tests: Mobility Limitations Standardized [employer] AM-PAC 6 clicks Basic Mobility Inpatient Short Form: Raw Score: 15 CMS Score: 58% deficit Informed Consent/Education: Patient instructed in purpose of PT consult and plan of care. She is instructed in early seated and standing exercises, as noted on flowsheet. Assessment: Patient is a 72 year old female referred to physical therapy services with the diagnosis of progressive weakness. Patient presents with clinical signs and symptoms consistent with diagnosis, with marketed deficits and independence with transfers and ambulation today. Patient has been receiving assistance from her sister and [id number] in their home, although given the severity of her parkinsonian symptoms, she will likely require a high er level of care going forward. Anticipate need for placement in [facility] facility or long-term care facility once medically stable for ongoing strengthening and rehabilitation. She currently demonstrates the following impairment level findings: 1. Decreased upper extremity strength 2. Decreased lower extremity strength 3. Freezing episodes 4. Resting tremor Impairments are contributing to the following functional limitations: 1. Unable to independently transfer 2. Unable to independently ambulate 3. Unable to manage stairs 4. Requirement of significant cues for assisted ambulation to overcome freezing episodes Patient is assessed as a Moderate 89135 complexity based on the following: History: 72-year-old female admitted for progressive weakness in the presence of multiple medical comorbidities. She has significant mobility deficits, largely related to her parkinsonian symptoms, with difficulty initiating movements and significant upper and lower extremity strength deficits. Examination: Functional limitations as noted above Presentation: Evolving Decision Making: Moderate complexity Goals: Goals X1 week 1. Supine-Sit: Supervision 2. Sit-Supine: Supervision 3. Sit-Stand: Supervision 4. Stand-Sit: Supervision 5. Bed-Chair: Min assist with FWW 6. Chair-Bed: Min assist with FW W 7. Gait: Able to ambulate 25 feet with min assist, FW W Plan of Care/Treatment Plan: 1-2x/day, 7 days/week x 1 week. Plan of care has been reviewed with the [employer] providing the service under Physical Therapy direction. Initiate Physical Therapy intervention for strengthening, bed mobility, transfers, gait, stairs, balance training, use of assistive device. DISCHARGE RECOMMENDATIONS: Patient will likely require placement to [facility] versus long-term care facility once medically stable TREATMENT CODE/TIME: 20 minutes (10192)
[2018-06-26] MEDS: Triamcinolone 0.1% CR 15 GM TUBE TP (12:24)
--- NOTE | 2018-06-26 17:27 | INITIAL_ITS ---
Care Management Initial Assess REASON FOR HOSPITALIZATION:: Failure to Thrive PAST MEDICAL HISTORY/PAST SURGICAL HISTORY:: Past Medical History: Daniel's esophagus, Chronic low back pain, Depression with anxiety,. Development delay, borderline, Dysphagia, GERD, Hyperlipidemia, Hypertension, Hypothyroidism, Migraine headache without aura, Obstructive sleep apnea on CPAP, Osteoarthritis, osteoporosis, Sensorineural hearing loss, bilateral, Tardive akathisia, Tardive dyskinesia, Type 2 diabetes mellitus, Urgency incontinence. Surgical History: H/O bilateral cataract extraction, H/O tubal ligation, H/O umbilical hernia repair, H/O hysterectomy with bilateral oopherectomy, s/p cholecystectomy PREVIOUS FUNCTIONAL STATUS/SOCIAL/FAMILY SUPPORTS:: Noemi lives with her sister Chantal and her family in a 4 bedroom mobile home in [facility]. Besides Chantal, there is Chantal's , a 10 year old daughter and a 14 month old daughter, newly adopted, living in the home. Chantal states that Philomena's health has deteriorated rapidly since she returned home on 06/14/18. She requires total care. Chantal bathes and feeds Philomena and assists with all of her ADLs but it is becoming impossible to meet her needs. CURRENT FUNCTIONAL STATUS:: Philomena is awake and alert answering simple questions. Chantal who is her daughter as well as [facility] and POA had already left when I visited. COLST form completed during a previous admission and is on file. Philomena requires maximum assist with ADLs. She is not able to ambulate at this time.If at all possible Chantal wants her to return home at discharge and resume previous services. She has been receiving HH services including nursing, OT and PT on Tuesdays and and goes to [facility] on Wednesday, Wednesday and Wednesday. ADVANCE DIRECTIVES:: ADVANCE DIRECTIVES:: COLST form on chart Has patient been provided with information about the portal?: No Did the patient sign up for the portal?: No CODE STATUS:: DNR/DNI INSURANCE COVERAGE / FINANCIAL ISSUES:: Medicare and Medicaid CURRENT HOME/COMMUNITY SERVICES/EQUIPMENT:: Receives HH care with nursing, OT and PT on Wednesday and and attends [facility] on Wednesday, Wednesday and Wednesday. She has not been able to attend. She has not charlette able to uses a walker and a chair in the tub to shower. PRIMARY CARE PHYSICIAN:: Leti Franz MD POTENTIAL DISCHARGE NEEDS:: Increased services in the home. PATIENT/FAMILY EDUCATION NEEDS:: Discharge education, limitations, follow-up plan of care, Ask Me Three and disposition. ANTICIPATED BARRIERS TO DISCHARGE:: Her daily care needs may not be able to be met by Chantal and the current service provided in the home. TRANSPORTATION:: Chantal will transport PLAN:: Philomena may need a Palliative Care consult and if unable to eat will possibly need a feeding tube placed. Will need to follow closely and evaluate the services needed and able to resume when she returns to Chantal's home.
--- NOTE | 2018-06-26 17:32 | PGE_ITS ---
Date of Service Date of service: 06/26/18 Time of Service: 17:28 Assessment and Plan (1) Dysphagia, unspecified: Current visit: No Status: Chronic Patient appears to have Failure to Thrive at home - appeared dehydrated and unable to tolerate oral intake. She appears improved with IV Hydration. Will reevaluate swallowing with Speech. If she does not qualify for an appropriate diet or is unable to take her medications she may require a PEG tube. In discussion with the patient it appears that she is interested in this course of action if required. Will await formal Speech Evaluation tomorrow. Qualifiers: Dysphagia type: unspecified Qualified Code(s): R13.10 - Dysphagia, unspecified (2) Atrial flutter: Current visit: Yes Status: Chronic New diagnosis last hospitalization, with patient in NSR. ECHO obtained last visit and essentially unremarkable. Already on BB, currently changed to IV Formulation. Discussed risks of anticoagulation previously given patient's history of Tardive Dyskinesia, Ambulatory Dysfunction, and multiple prior falls. Will continue to hold off anticoagulation for now - ultimately may not be a good candidate for anticoagulation. (3) Type 2 diabetes mellitus: Current visit: No Status: Chronic Previously was on basal insulin, held last hospitalization in setting of hypoglycemia and decreased oral intake. Patient's blood sugars had remained in the 80-100's even when eating. Continue with sliding scale coverage and monitor blood sugars. Currently NPO. (4) Hypothyroidism: Current visit: No Status: Chronic Continue replacement therapy but change to equivalent dose IV Formulation of Levothyroxine. (5) Hypertension: Current visit: No Status: Chronic Continue BB therapy. Qualifiers: Hypertension type: essential hypertension Qualified Code(s): I10 - Essential (primary) hypertension (6) Schizophrenia: Current visit: Yes Status: Chronic Noted. 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 Previously discontinued patient's antipsychotic therapy with Cariprazine, but had continued patient's Valbenazine - now on hold as she is NPO. (8) DVT prophylaxis: Current visit: Yes Status: Chronic SC Lovenox. Also on PPI therapy for GI Prophylaxis. (9) Advance directive discussed with patient: Current visit: No Status: Chronic DNR/DNI. Subjective Interval history since last seen: 72 year old woman with a prior history of Schizophrenia, Bipolar Disorder, and Tardive Dyskinesia, admitted from [facility] Emergency Department on 06/25 with a diagnosis of Failure to Thrive. Ms. Adames a prior history of Bipolar disorder, Schizophrenia, Tardive Dyskinesia, and prior episodes of psychosis. Her other diagnosis include Hypothyroidism, HTN, dyslipidemia, DM, GERD, and ARMAND intolerant of CPAP. She also has a history of ambulatory dysfunction and dysphagia. The patient was just hospitalized here from 06/09-06/14 for treatment of Pneumonia and dysphagia. She also had a new onset of Atrial Flutter during that hospitalization, and a work- up for a presumed facial droop was negative, including MRI/MRA of the brain, Carotid Ultrasound, and an ECHO. Following treatment she was discharged in vastly improved condition, able to tolerate a modified diet and ambulating well with the assistance of a walker with Physical Therapy. She was discharged home to the care of her sister, with Home Health that included Visiting Nursing. She however became progressively weak and unable to tolerate oral feedings or medications, and was brought back for reevaluation. Work-up in the ED included essentially unremarkable labs, Urinalysis, CT of the head, and XRay of the chest. She was referred for admission for further evaluation and treatment. By this afternoon Ms. Adames appears improved. She is verbal and appropriate, but remains NPO. No overnight events reported. Remains afebrile. Exam Narrative Exam Narrative: General: Patient appears comfortable, pleasant, awake and alert, NAD. Appears tremulous with b/l UE tremors, lip smacking, and abnormal tongue movements. Answers questions appropriately. Neck: Supple CV: Regular, nontachycardic, S1S2, No rubs, murmurs, or gallops. Pulmonary: Clear to auscultation bilaterally, no crackles or wheezing on limited exam. Abdomen: + Bowel Sounds, soft, nontender, nondistended Vascular: No lower extremity edema Psych: Normal mood and affect. Objective Objective Clinical Data: Abnormal lab results 06/25/18 06/26/18 Range/Units 18:15 04:15 Potassium 3.4 L (3.5-5.1) mmol/L BUN 6 L (7-18) mg/dL Glucose 104 H 131 H (70-100) mg/dL Calcium 8.3 L (8.5-10.1) mg/dL Magnesium 1.5 L 2.5 H (1.8-2.4) mg/dL Albumin 3.0 L (3.4-5.0) g/dL Vital Signs Temperature 37.2 C 06/26/18 15:15 Temperature Source Tympanic 06/26/18 15:15 Pulse 72 06/26/18 15:15 Pulse Rhythm Regular 06/26/18 08:58 Pulse 89 06/25/18 19:01 Respiratory Rate 18 06/26/18 15:15 Respiratory Effort Non-Labored 06/26/18 08:58 Respiratory Depth Normal 06/26/18 08:58 Respiratory Pattern Normal 06/26/18 08:58 Blood Pressure 146/73 H 06/26/18 15:15 Blood Pressure Mean 88 06/25/18 19:01 Pulse Oximetry 96 06/26/18 15:15 Oxygen Delivery Method Room Air 06/26/18 15:15 Oxygen Flow Rate 0 06/26/18 15:15 Pain Level 4 06/26/18 11:40 Comment 06/26/18 03:15 Intake & Output 06/25/18 06/26/18 06/26/18 23:59 11:59 23:59 Intake Total 1260 / 1260 93.75 / 93.75 Output Total 350 / 350 850 / 1350 500 / 1350 Balance 910 / 910 -756.25 / -1256.25 -500 / -1256.25 Weight 91.4 kg 89 kg Intake: IV 1260 / 1260 93.75 / 93.75 Oral 0 / 0 Output: Urine 350 / 350 850 / 1350 500 / 1350 Other: Urine Color Straw Yellow Straw Urine Appearance Clear Voiding Methods Bedside Commode Bedside Commode Bedside Commode # Voids 1 Laboratory Results WBC 4.50 k/cumm (4.4-10.8) 06/25/18 16:30 RBC 4.58 m/cumm (4.00-5.20) 06/25/18 16:30 Hgb 14.3 g/dL (12.0-15.5) 06/25/18 16:30 Hct 42.1 % (36.0-46.0) 06/25/18 16:30 MCV 91.9 fL (80-95) 06/25/18 16:30 MCH 31.2 pg (27.0-33.0) 06/25/18 16:30 MCHC 34.0 g/dL (32.0-36.0) 06/25/18 16:30 RDW 13.1 % (11.7-14.6) 06/25/18 16:30 Plt Count 208 x1000/uL (130-400) 06/25/18 16:30 MPV 11.7 fL (8.0-11.0) H 06/25/18 16:30 Immature Gran % 0.2 06/25/18 16:30 Neutrophils % 53.8 06/25/18 16:30 Lymphocytes % 31.6 06/25/18 16:30 Monocytes % 9.3 06/25/18 16:30 Eosinophils % 4.7 06/25/18 16:30 Basophils % 0.4 06/25/18 16:30 Absolute Neutrophils 2.42 k/cumm (1.2-6.7) 06/25/18 16:30 Absolute Lymphocytes 1.42 k/cumm (1.2-3.4) 06/25/18 16:30 Absolute Monocytes 0.42 k/cumm (0.11-0.7) 06/25/18 16:30 Absolute Eosinophils 0.21 k/cumm (0.0-0.7) 06/25/18 16:30 Absolute Basophils 0.02 k/cumm (0.0-0.2) 06/25/18 16:30 Sodium 144 mmol/L (136-145) 06/26/18 04:15 Potassium 3.4 mmol/L (3.5-5.1) L 06/26/18 04:15 Chloride 106 mmol/L (98-107) 06/26/18 04:15 Carbon Dioxide 30.3 mmol/L (21.0-32.0) 06/26/18 04:15 Anion Gap 7.7 mmol/L (3-11) 06/26/18 04:15 BUN 6 mg/dL (7-18) L 06/26/18 04:15 Creatinine 0.75 mg/dL (0.55-1.02) 06/26/18 04:15 Estimated GFR/1.73 m2 >= 60.00 (mL/min/1.73m2) 06/26/18 04:15 Glucose 131 mg/dL (70-100) H 06/26/18 04:15 Calcium 8.5 mg/dL (8.5-10.1) 06/26/18 04:15 Magnesium 2.5 mg/dL (1.8-2.4) H 06/26/18 04:15 Total Bilirubin 0.5 mg/dL (0.2-1.0) 06/25/18 18:15 AST 28 U/L (15-37) 06/25/18 18:15 ALT 24 U/L (12-78) 06/25/18 18:15 Alkaline Phosphatase 72 U/L (46-116) 06/25/18 18:15 Troponin I < 0.02 ng/mL (0.00-0.06) 06/26/18 08:22 Total Protein 6.5 g/dL (6.4-8.2) 06/25/18 18:15 Albumin 3.0 g/dL (3.4-5.0) L 06/25/18 18:15
[2018-06-26] MEDS: Acetaminophen 650 MG SUPP PR (18:56)
[2018-06-27] VITALS (17 sets, daily range): BP systolic 112–179; BP diastolic 61–80; PULSE 58–88; RESP 18–21; TEMP 36.1–36.9; O2SAT 95–97
[2018-06-27] MEDS: Metoprolol 5 MG/5 ML VIAL 2.5 MG IVP ×3 (00:20→18:03)
[2018-06-27] MEDS: Normal Saline Flush 10 ML SYR IVP ×4 (00:20→18:05)
[2018-06-27] MEDS: Acetaminophen 650 MG SUPP PR ×2 (03:14→16:13)
[2018-06-27] MEDS: Levothyroxine 100 MCG VIAL 56 MCG IVP (06:24)
[2018-06-27 06:45] LABS: Absolute Basophil Count 0.01 k/cumm (0.0-0.2); Absolute Eosinophil Count 0.13 k/cumm (0.0-0.7); Absolute Lymphocyte Count 1.76 k/cumm (1.2-3.4); Absolute Monocyte Count 0.54 k/cumm (0.11-0.7); Absolute Neutrophil Count 2.44 k/cumm (1.2-6.7); Basophils % 0.2; Eosinophils % 2.7; HGB 13.1 g/dL (12.0-15.5); Lymphocytes % 36.1; Mean Corp. HGB Concentration 33.6 g/dL (32.0-36.0); Mean Corpuscular Hemoglobin 31.1 pg (27.0-33.0); Mean Corpuscular Volume 92.6 fL (80-95); Mean Platelet Volume 11.1 fL (8.0-11.0); Monocytes % 11.1; Neutrophils % 49.9; Platelet Count 165 x1000/uL (130-400); RBC 4.21 m/cumm (4.00-5.20); RBC Distribution Width 13.2 % (11.7-14.6); White Blood Cell Count 4.88 k/cumm (4.4-10.8)
[2018-06-27 06:51] LABS: Anion Gap 7.9 mmol/L (3-11); BUN 5 mg/dL (7-18); CO2 27.1 mmol/L (21.0-32.0); CREATININE 0.73 mg/dL (0.55-1.02); Calcium 8.6 mg/dL (8.5-10.1); Chloride 106 mmol/L (98-107); Glucose 132 mg/dL (70-100); Magnesium 1.7 mg/dL (1.8-2.4); Potassium 3.8 mmol/L (3.5-5.1); Sodium 141 mmol/L (136-145)
--- NOTE | 2018-06-27 08:00 | PDOC.CMPRO ---
- If Service Date Differs Date of service: 06/27/18 Time of Service: 08:00 Care Management Progress Note S/O:CM met with Philomena and her sister Chantal. According to Chantal, both the ED physician and speech therapist reported that the difficulties with eating and swallowing are not likely to improve and are recommending a feeding tube. Philomena has stated that she does not want a feeding tube. Chantal has said that they discussed the possibility of comfort care and placement and that they would like to go to [facility] if possible. A:Philomena is a 72 year old female admitted with a diagnosis of failure to thrive. She was recently hospitalized for aspiration pneumonia and dysphagia. P:Philomena had a Palliative Care consult on her last admission and indicated that she does not want a feeding tube placed. Because there is little likelihood that Philomena's condition will improve, she and Chantal are discussing comfort care and the possibility of placement.
[2018-06-27] MEDS: Triamcinolone 0.1% CR 15 GM TUBE TP (08:15)
[2018-06-27] MEDS: Aspirin 300 MG SUPP PR (09:01)
[2018-06-27] MEDS: Enoxaparin 40 MG/0.4 ML SYR SC (09:01)
[2018-06-27] MEDS: Pantoprazole 40 MG VIAL IVP (09:02)
--- NOTE | 2018-06-27 11:29 | EVALE_ITS ---
Date of service: 06/27/18 Time of Service: 09:45 Speech Therapy Evaluation Note: REFERRING PROVIDER: Dr. Aquino BACKGROUND This is a 72 year old right-handed female who presented to the ED from home on 06/25/18 with family reports of increased generalized weakness and into lerance of oral nutrition. A CXR of that date showed no acute findings. She was admitted for tx of FTT secondary to progressive Parkinsonism. A swallow consult was requested. PMH: bipolar 1 disorder, schizophrenia, psychosis, DM, HTN, ARMAND, GERD, tardive dyskinesia, hypothyroidism. This patient (pt) is known to me from having seen her twice before. She was initially seen for an outpatient MBSS on 07/08/16. Dx: moderate oral-prep dysphagia; Rec: Mechanically Altered diet with fine-chopped/ground meats, Thin liquid, whole pills with a liquid wash. She was then seen as an inpatient on 06/10/18 with a dx of moderate-severe oropharyngeal dysphagia and a recommendation of Puree diet, Honey-thick liquids, crushed pills in puree. Now the pt reports an inability to move puree food from her mouth to her throat. OBJECTIVE Nursing reports: - T: 36.6 - O2 sat: 95% on RA - LS: CTA bilaterally (B) in the absence of ABX - Pt is currently n.p.o. The pt is awake, alert and makes good direct eye contact. She looks much older than her stated age. She answers questions but there is a paucity of conversational speech. She is A & o X 2 (person, place) and able to follow 2- step directions. Oral Sensorimotor Exam The pt is totally edentulous & without dentures. The tongue surface is partially covered with a crusty black debris. She reports a dry mouth. Pt shows a significant constant lingual tremor (resting & with action). Oral sensation is WNL-B for buccal, labial and lingual areas. Motorically, the smile is diminished B. No lingual deviation on protrusion is seen in a setting of severely decreased excursion. Lingual lateralization is severely decreased B. Lingual rapid alternating movements are unable to be performed. Lingual strength is severely decreased B. She is unable to show mandibular lateralization. Velopharyngeal elevation is absent B. Volitional cough is moderately decreased; volitional throat-clear is moderately-severely decreased. Estimated speech intelligibility to this somewhat familiar listener in the absence of background noise is 90% due to imprecise consonants, slow speech rate, wet vocal quality and low vocal intensity. Pt is unable to clear pharyngeal secretions on request resulting in continued wet vocal quality. Swallowing - Honey-thick liquid: Decreased bolus control; very delayed posterior oral transit (POT); significantly decreased laryngeal anterior elevation on palpation; wet vocal quality post-swallow; oral clearance 90%; no oral escape. - Puree food: Decreased bolus control; POT absent; pt tried to expectorate bolus on request but was only able to let bolus fall out of her mouth. INTERPRETATION The pt now shows a severe oropharyngeal dysphagia. Oral motor skill is diminished from what was noted on 06/10/18. The pt is felt to be at high risk of aspiration with any p.o. food/liquid/medication consistency. These results are explained to both the pt and her daughter and they deny having any remaining questions. RECOMMENDATIONS 1. Continue n.p.o. Nutri./hydra./medication. 2. Oral moisturizing prn with use of cold wet metal tsp versus oral swab. 3. No speech therapy is indicated at this time. Thank you for referring this pt.
--- NOTE | 2018-06-27 12:06 | PT.INTREAT ---
Date of service: 06/27/18 Time of Service: 12:06 PT Notes Inpatient Physical Therapy Treatment Note [facility] Date: 06/27/18 PRECAUTIONS: Fall SUBJECTIVE: Philomena is agreeable to participating in PT. OBJECTIVE: PAIN: No c/o pain BED MOBILITY/TRANSFERS Sit-stand: Min A Stand-sit: CGA with cueing for safety Bed-chair: Min A + CGA GAIT Assistive Device: FWW Weight bearing: Full Assist: Min A + CGA Distance: 20' + 5' Deviation: Significant cueing for movement initiation and gait/FWW mechanics THEREX: Patient completed several LE strengthening exercises, as per flow sheet. ASSESSMENT: Patient tolerated session well without complaint. She was able to tolerate a progression in gait distance with FWW support and significant cueing for gait/FWW mechanics. She would benefit from continued gait and transfer training, as well as continued strengthening for improved mobility and activity tolerance. PLAN: Continue with PT's POC TREATMENT CODE/TIME: Session 1: 25 minutes; [id number], [id number]
--- NOTE | 2018-06-27 12:07 | W.NUTCONSULT ---
Date of service: 06/27/18 Time of Service: 12:07 Nutritional Consult ASSESSMENT: Ms. Adames had speech and swallow consult. SUB MASTER determined her to require NPO status as she is unsafe to eat secondary to dysphasia. Ms. Adames has been meeting less than 75% of her estimated energy needs for greater than 7 days. She has also lost 5% of her body weight unintentionally in one month. She is 66 and 87.9 kg today. Her BMI is 33 kg/m2 consistent with class 1 obesity. One month ago, she was 92.3 kg. Her adjusted ideal body weight (IBW) is 79 kg. She goes to [employer] 3 days per week. Her estimated energy needs are 1660 kcal/day (REE x 1.2) Her estimated protein needs are 79 grams per day (1.0 g/kg/day adjusted ideal body weight). Her estimated fluid needs are 2370 ml/day (30 ml/kg/day of adjusted IBW) NUTRITIONAL DIAGNOSIS: Moderate malnutrition based on 5% unintentional weight loss in one month as well as inability to take in at least 75% of estimated energy needs for greater than 7 days. ([place]/AND guidelines for diagnosing malnutrition) INTERVENTION: Will provided tube feeding recommendations should such a feeding modality be consistent with the patient's and family's wishes. As Ms. Adames attends [employer] and is out and about, would recommend that we work towards bolus feeds. I will first make recommendations, however for continuous feeds until we see how she is able to tolerate the feeding. Goal feeding: Glucerna 1.2 gracie @ 60 ml/hr continuously. Start feeding at 30 ml/hr x 4 hours and increase rate by 15 ml/hr every 4 hours as tolerated. Ms. Adames will likely need an additional 1200 ml/day of free water to maintain an adequate hydration status. This feeding provides 100% of her estimated macronutrient needs, micronutrient needs, as well as 23 grams of fiber and 1200 ml of free water. MONITORING AND EVALUATION: 1. Will monitor progress. Will monitor weight and tolerance of tube feeding if that route is chosen. 2. Evaluation of nutrition care plan ongoing. Will adjust as needed. Time Spent in Nutritional Counseling and Treatment: REBECCA
--- NOTE | 2018-06-27 12:22 | NS.NUTBLAN_ITS ---
Date of service: 06/27/18 Time of Service: 12:07 Nutritional Consult ASSESSMENT: Ms. Adames had speech and swallow consult. SHIPPING WEIGHER determined her to require NPO status as she is unsafe to eat secondary to dysphasia. Ms. Adames has been meeting less than 75% of her estimated energy needs for greater than 7 days. She has also lost 5% of her body weight unintentionally in one month. She is 66 and 87.9 kg today. Her BMI is 33 kg/m2 consistent with class 1 obesity. One month ago, she was 92.3 kg. Her adjusted ideal body weight (IBW) is 79 kg. She goes to [employer] 3 days per week. Her estimated energy needs are 1660 kcal/day (REE x 1.2) Her estimated protein needs are 79 grams per day (1.0 g/kg/day adjusted ideal body weight). Her estimated fluid needs are 2370 ml/day (30 ml/kg/day of adjusted IBW) NUTRITIONAL DIAGNOSIS: Moderate malnutrition based on 5% unintentional weight loss in one month as well as inability to take in at least 75% of estimated energy needs for greater than 7 days. ([place]/AND guidelines for diagnosing malnutrition) INTERVENTION: Will provided tube feeding recommendations should such a feeding modality be consistent with the patient's and family's wishes. As Ms. Adames attends [employer] and is out and about, would recommend that we work towards bolus feeds. I will first make recommendations, however for continuous feeds until we see how she is able to tolerate the feeding. Goal feeding: Glucerna 1.2 gracie @ 60 ml/hr continuously. Start feeding at 30 ml/hr x 4 hours and increase rate by 15 ml/hr every 4 hours as tolerated. Ms. Adames will likely need an additional 1200 ml/day of free water to maintain an adequate hydration status. This feeding provides 100% of her estimated macronutrient needs, micronutrient needs, as well as 23 grams of fiber and 1200 ml of free water. MONITORING AND EVALUATION: 1. Will monitor progress. Will monitor weight and tolerance of tube feeding if that route is chosen. 2. Evaluation of nutrition care plan ongoing. Will adjust as needed. Time Spent in Nutritional Counseling and Treatment: REBECCA
[2018-06-27] MEDS: Insulin Aspart 300 UNITS/3 ML PEN SC (12:36)
--- NOTE | 2018-06-27 15:39 | PT.INNT ---
Date of service: 06/27/18 Time of Service: 15:39 PT Notes 06/27/18 Patient refused afternoon PT session. Will attempt to resume PT services tomorrow morning, if appropriate.
--- NOTE | 2018-06-27 17:47 | PGE_ITS ---
Date of Service Date of service: 06/27/18 Time of Service: 17:39 Assessment and Plan (1) Dysphagia, unspecified: Current visit: No Status: Chronic Patient appears to have Failure to Thrive at home - appeared dehydrated and unable to tolerate oral intake. She appears improved with IV Hydration from a mental status standpoint, but with failed swallow eval. Discussed goals of care in detail today with patient and her sister who acts as her fulltime caregiver. She had in discussion yesterday agreed to doing 'whatever it takes' when discussing PEG tube placement. She is now however favoring not going through with PEG tube placement. This was discussed in great detail with her and family, including the potential ramifications including inability to take in any food or water, and very likely deterioration following. It was urged to discuss this, with final decision over the next 24 hours or so. If she does not wish for placement of a feeding tube will consult palliative medicine for likely end of life discussion, hospice care, and potential placement. Qualifiers: Dysphagia type: unspecified Qualified Code(s): R13.10 - Dysphagia, unspecified (2) Atrial flutter: Current visit: Yes Status: Chronic New diagnosis last hospitalization, with patient in NSR. ECHO obtained last visit and essentially unremarkable. Already on BB, currently changed to IV Formulation. Discussed risks of anticoagulation previously given patient's history of Tardive Dyskinesia, Ambulatory Dysfunction, and multiple prior falls. Will continue to hold off anticoagulation for now - ultimately may not be a good candidate for anticoagulation. (3) Type 2 diabetes mellitus: Current visit: No Status: Chronic Previously was on basal insulin, held last hospitalization in setting of hypoglycemia and decreased oral intake. Patient's blood sugars had remained in the 80-100's even when eating. Continue with sliding scale coverage and monitor blood sugars. Currently NPO. (4) Hypothyroidism: Current visit: No Status: Chronic Continue replacement therapy but change to equivalent dose IV Formulation of Levothyroxine. (5) Hypertension: Current visit: No Status: Chronic Continue BB therapy. Qualifiers: Hypertension type: essential hypertension Qualified Code(s): I10 - Essential (primary) hypertension (6) Schizophrenia: Current visit: Yes Status: Chronic Noted. 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 Previously discontinued patient's antipsychotic therapy with Cariprazine, but had continued patient's Valbenazine - now on hold as she is NPO. (8) DVT prophylaxis: Current visit: Yes Status: Chronic SC Lovenox. Also on PPI therapy for GI Prophylaxis. (9) Advance directive discussed with patient: Current visit: No Status: Chronic DNR/DNI. Subjective Interval history since last seen: 72 year old woman with a prior history of Schizophrenia, Bipolar Disorder, and Tardive Dyskinesia, admitted from [facility] Emergency Department on 06/25 with a diagnosis of Failure to Thrive. Ms. Adames a prior history of Bipolar disorder, Schizophrenia, Tardive Dyskinesia, and prior episodes of psychosis. Her other diagnosis include Hypothyroidism, HTN, dyslipidemia, DM, GERD, and ARMAND intolerant of CPAP. She also has a history of ambulatory dysfunction and dysphagia. The patient was just hospitalized here from 06/09-06/14 for treatment of Pneumonia and dysphagia. She also had a new onset of Atrial Flutter during that hospitalization, and a work- up for a presumed facial droop was negative, including MRI/MRA of the brain, Carotid Ultrasound, and an ECHO. Following treatment she was discharged in vastly improved condition, able to tolerate a modified diet and ambulating well with the assistance of a walker with Physical Therapy. She was discharged home to the care of her sister, with Home Health that included Visiting Nursing. She however became progressively weak and unable to tolerate oral feedings or medications, and was brought back for reevaluation. Work-up in the ED included essentially unremarkable labs, Urinalysis, CT of the head, and XRay of the chest. She was referred for admission for further evaluation and treatment. Ms. Adames appears improved with hydration, and appears at her baseline. She is verbal and appropriate, but remains NPO as per evaluation by speech. No overnight events reported. Remains afebrile. Exam Narrative Exam Narrative: General: Patient appears comfortable, pleasant, awake and alert, NAD. Appears tremulous with b/l UE tremors, lip smacking, and abnormal tongue movements. Answers questions appropriately. Neck: Supple CV: Regular, nontachycardic, S1S2, No rubs, murmurs, or gallops. Pulmonary: Clear to auscultation bilaterally, no crackles or wheezing on limited exam. Abdomen: + Bowel Sounds, soft, nontender, nondistended Vascular: No lower extremity edema Psych: Normal mood and affect. Objective Objective Clinical Data: Abnormal lab results 06/27/18 06/27/18 Range/Units 06:15 06:15 MPV 11.1 H (8.0-11.0) fL BUN 5 L (7-18) mg/dL Glucose 132 H (70-100) mg/dL Magnesium 1.7 L (1.8-2.4) mg/dL Vital Signs Temperature 36.1 C L 06/27/18 15:44 Temperature Source Tympanic 06/27/18 15:44 Pulse 79 06/27/18 16:13 Pulse Rhythm Regular 06/27/18 08:20 Pulse 89 06/25/18 19:01 Respiratory Rate 20 06/27/18 15:44 Respiratory Effort 06/27/18 08:20 Respiratory Depth Normal 06/27/18 08:20 Respiratory Pattern Normal 06/27/18 08:20 Blood Pressure 179/61 H 06/27/18 15:44 Blood Pressure Mean 88 06/25/18 19:01 Pulse Oximetry 97 06/27/18 15:44 Oxygen Delivery Method Room Air 06/27/18 15:44 Oxygen Flow Rate 0 06/27/18 15:44 Pain Level 4 06/27/18 16:13 Comment 06/26/18 03:15 Intake & Output 06/26/18 06/27/18 06/27/18 23:59 11:59 23:59 Intake Total 1076.25 / 1170.00 1000 / 1000 Output Total 500 / 1350 1950 / 1950 Balance 576.25 / -180.00 -950 / -950 Weight 87.9 kg Intake: IV 1076.25 / 1170.00 1000 / 1000 Oral 0 / 0 Output: Urine 500 / 1350 1950 / 1950 Other: Urine Color Straw Yellow Urine Appearance Clear Comment urine mixed with stool urine mixed with stool Stool Size Moderate Moderate Stool Characteristics Soft Soft Voiding Methods Bedside Commode Toilet Toilet Laboratory Results WBC 4.88 k/cumm (4.4-10.8) 06/27/18 06:15 RBC 4.21 m/cumm (4.00-5.20) 06/27/18 06:15 Hgb 13.1 g/dL (12.0-15.5) 06/27/18 06:15 Hct 39.0 % (36.0-46.0) 06/27/18 06:15 MCV 92.6 fL (80-95) 06/27/18 06:15 MCH 31.1 pg (27.0-33.0) 06/27/18 06:15 MCHC 33.6 g/dL (32.0-36.0) 06/27/18 06:15 RDW 13.2 % (11.7-14.6) 06/27/18 06:15 Plt Count 165 x1000/uL (130-400) 06/27/18 06:15 MPV 11.1 fL (8.0-11.0) H 06/27/18 06:15 Immature Gran % 0.0 06/27/18 06:15 Neutrophils % 49.9 06/27/18 06:15 Lymphocytes % 36.1 06/27/18 06:15 Monocytes % 11.1 06/27/18 06:15 Eosinophils % 2.7 06/27/18 06:15 Basophils % 0.2 06/27/18 06:15 Absolute Neutrophils 2.44 k/cumm (1.2-6.7) 06/27/18 06:15 Absolute Lymphocytes 1.76 k/cumm (1.2-3.4) 06/27/18 06:15 Absolute Monocytes 0.54 k/cumm (0.11-0.7) 06/27/18 06:15 Absolute Eosinophils 0.13 k/cumm (0.0-0.7) 06/27/18 06:15 Absolute Basophils 0.01 k/cumm (0.0-0.2) 06/27/18 06:15 Sodium 141 mmol/L (136-145) 06/27/18 06:15 Potassium 3.8 mmol/L (3.5-5.1) 06/27/18 06:15 Chloride 106 mmol/L (98-107) 06/27/18 06:15 Carbon Dioxide 27.1 mmol/L (21.0-32.0) 06/27/18 06:15 Anion Gap 7.9 mmol/L (3-11) 06/27/18 06:15 BUN 5 mg/dL (7-18) L 06/27/18 06:15 Creatinine 0.73 mg/dL (0.55-1.02) 06/27/18 06:15 Estimated GFR/1.73 m2 >= 60.00 (mL/min/1.73m2) 06/27/18 06:15 Glucose 132 mg/dL (70-100) H 06/27/18 06:15 Calcium 8.6 mg/dL (8.5-10.1) 06/27/18 06:15 Magnesium 1.7 mg/dL (1.8-2.4) L 06/27/18 06:15 Total Bilirubin 0.5 mg/dL (0.2-1.0) 06/25/18 18:15 AST 28 U/L (15-37) 06/25/18 18:15 ALT 24 U/L (12-78) 06/25/18 18:15 Alkaline Phosphatase 72 U/L (46-116) 06/25/18 18:15 Troponin I < 0.02 ng/mL (0.00-0.06) 06/26/18 08:22 Total Protein 6.5 g/dL (6.4-8.2) 06/25/18 18:15 Albumin 3.0 g/dL (3.4-5.0) L 06/25/18 18:15
[2018-06-28] VITALS (16 sets, daily range): BP systolic 118–190; BP diastolic 56–88; PULSE 53–94; RESP 18–20; TEMP 36.3–37; O2SAT 93–98
--- NOTE | 2018-06-28 00:19 | NUR.NOTE ---
Nursing Note: At midnight scheduled metoprolol not given HR was 53. Pt had relief on headache with ice pack under nape and cold compress applied on forehead. Utilizes bedside commode for voiding , weakness on lower extremities remains observed. Assisted back to bed. Continue to monitor.
[2018-06-28] MEDS: Levothyroxine 100 MCG VIAL 56 MCG IVP (06:21)
[2018-06-28] MEDS: Metoprolol 5 MG/5 ML VIAL 2.5 MG IVP ×3 (06:25→17:01)
[2018-06-28] MEDS: Normal Saline Flush 10 ML SYR IVP ×3 (06:27→17:00)
[2018-06-28 08:24] LABS: Abs Immature Grans 0.01 k/cumm (0.0-0.09); Absolute Basophil Count 0.01 k/cumm (0.0-0.2); Absolute Eosinophil Count 0.24 k/cumm (0.0-0.7); Absolute Lymphocyte Count 1.17 k/cumm (1.2-3.4); Absolute Monocyte Count 0.46 k/cumm (0.11-0.7); Absolute Neutrophil Count 1.33 k/cumm (1.2-6.7); Basophils % 0.3; Eosinophils % 7.5; HCT 40.3 % (36.0-46.0); HGB 13.1 g/dL (12.0-15.5); Immature Grans % 0.3; Lymphocytes % 36.3; Mean Corp. HGB Concentration 32.5 g/dL (32.0-36.0); Mean Corpuscular Hemoglobin 30.3 pg (27.0-33.0); Mean Corpuscular Volume 93.3 fL (80-95); Monocytes % 14.3; Neutrophils % 41.3; Platelet Count 160 x1000/uL (130-400); RBC 4.32 m/cumm (4.00-5.20); RBC Distribution Width 13.1 % (11.7-14.6); White Blood Cell Count 3.22 k/cumm (4.4-10.8)
[2018-06-28 08:27] LABS: Anion Gap 8.1 mmol/L (3-11); BUN 5 mg/dL (7-18); CO2 28.9 mmol/L (21.0-32.0); CREATININE 0.81 mg/dL (0.55-1.02); Calcium 8.8 mg/dL (8.5-10.1); Chloride 104 mmol/L (98-107); Glucose 150 mg/dL (70-100); Magnesium 1.6 mg/dL (1.8-2.4); Potassium 3.6 mmol/L (3.5-5.1); Sodium 141 mmol/L (136-145)
[2018-06-28] MEDS: Aspirin 300 MG SUPP PR (08:45)
[2018-06-28] MEDS: Pantoprazole 40 MG VIAL IVP (08:46)
[2018-06-28] MEDS: Enoxaparin 40 MG/0.4 ML SYR SC (08:47)
[2018-06-28 09:03] LABS: Diff Comment Diff Reviewed; RBC Morphology Normal
[2018-06-28] MEDS: Triamcinolone 0.1% CR 15 GM TUBE TP (09:40)
[2018-06-28] MEDS: MAGNESIUM SULFATE 2 GM/50 ML BAG IVPB (10:43)
[2018-06-28] MEDS: POTASSIUM CHLORIDE 20 MEQ/100 ML BAG 50 MEQ IVPB ×2 (13:10→16:34)
--- NOTE | 2018-06-28 13:22 | PT.INTREAT ---
Date of service: 06/28/18 Time of Service: 13:24 PT Notes Inpatient Physical Therapy Treatment Note [facility] Date: 06/28/18 PRECAUTIONS: Fall SUBJECTIVE: Philomena is agreeable to participating in PT. She states that she is feeling pretty good this morning. OBJECTIVE: PAIN: No c/o pain BED MOBILITY/TRANSFERS Sit-supine: Mod A with HOB flat Sit-stand: Min A Stand-sit: CGA with cueing for safety GAIT Assistive Device: FWW Weight bearing: Full Assist: CGA Distance: 40' THEREX: Patient completed several seated LE strengthening exercises, as per flow sheet. ASSESSMENT: Patient tolerated session well without complaint. She was able to tolerate a progression in gait distance with FWW support and CGA. She would benefit from continued gait and transfer training as well as strengthening for improved mobility. PLAN: Continue with PT's POC TREATMENT CODE/TIME: 25 minutes; [id number], [id number]
--- NOTE | 2018-06-28 13:52 | PDOC.CMPRO ---
- If Service Date Differs Date of service: 06/28/18 Time of Service: 13:52 Care Management Progress Note S/O:BRI met with Philomena and her sister Chantal. According to Chantal, Philomena's 8 year old granddaughter came to visit and asked Philomena to make the right decision and was crying. Philomena asked her what the right decision was and she responded, get the feeding tube. After that conversation, Philomena agreed to having a feeding tube placed. When BRI discussed it with her, she stated that this was what she now wanted to do. Earlier in the day she stated she did not want the tube. After tube placement Philomena and Chantal are requesting placement at [facility] if possible. A:Philomena is a 72 year old female admitted with a diagnosis of failure to thrive. She was recently hospitalized for aspiration pneumonia and dysphagia. P:Philomena has now decided that she wants to try a feeding tube. Dr More to request a surgical consult. At discharge Philomena is requesting skilled care in a rehabilitation facility. Referral sent to [facility] by BRI and the case was discussed with the jack strip assembler.
--- NOTE | 2018-06-28 13:59 | CMPROGNOTE_ITS ---
- If Service Date Differs Date of service: 06/28/18 Time of Service: 13:52 Care Management Progress Note S/O:BRI met with Philomena and her sister Chantal. According to Chantal, Philomena's 8 year old granddaughter came to visit and asked Philomena to make the right decision and was crying. Philomena asked her what the right decision was and she responded, get the feeding tube. After that conversation, Philomena agreed to having a feeding tube placed. When BRI discussed it with her, she stated that t his was what she now wanted to do. Earlier in the day she stated she did not want the tube. After tube placement Philomena and Chantal are requesting placement at [facility] if possible. A:Philomena is a 72 year old female admitted with a diagnosis of failure to thrive. She was recently hospitalized for aspiration pneumonia and dysphagia. P:Philomena has now decided that she wants to try a feeding tube. Dr More to request a surgical consult. At discharge Philomena is requesting skilled care in a rehabilitation facility. Referral sent to [facility] by BRI and the case was discussed with the fancy needleworker.
--- NOTE | 2018-06-28 15:25 | W.SURGCON ---
Date of service: 06/28/18 Time of Service: 15:25 Assessment and Plan (1) Atrial flutter: Current visit: Yes Status: Chronic stable rate controlled. on ASA. will hold (2) Schizophrenia: Current visit: Yes Status: Chronic stable (3) Dysphagia causing pulmonary aspiration with swallowing: Current visit: Yes Status: Acute Oral Sensorimotor Exam The pt is totally edentulous & without dentures. The tongue surface is partially covered with a crusty black debris. She reports a dry mouth. Pt shows a significant constant lingual tremor (resting & with action). Oral sensation is WNL-B for buccal, labial and lingual areas. Motorically, the smile is diminished B. No lingual deviation on protrusion is seen in a setting of severely decreased excursion. Lingual lateralization is severely decreased B. Lingual rapid alternating movements are unable to be performed. Lingual strength is severely decreased B. She is unable to show mandibular lateralization. Velopharyngeal elevation is absent B. Volitional cough is moderately decreased; volitional throat-clear is moderately-severely decreased. Estimated speech intelligibility to this somewhat familiar listener in the absence of background noise is 90% due to imprecise consonants, slow speech rate, wet vocal quality and low vocal intensity. Pt is unable to clear pharyngeal secretions on request resulting in continued wet vocal quality. Swallowing - Honey-thick liquid: Decreased bolus control; very delayed posterior oral transit (POT); significantly decreased laryngeal anterior elevation on palpation; wet vocal quality post-swallow; oral clearance 90%; no oral escape. - Puree food: Decreased bolus control; POT absent; pt tried to expectorate bolus on request but was only able to let bolus fall out of her mouth. INTERPRETATION The pt now shows a severe oropharyngeal dysphagia. Oral motor skill is diminished from what was noted on 06/10/18. The pt is felt to be at high risk of aspiration with any p.o. food/liquid/medication consistency. These results are explained to both the pt and her daughter and they deny having any remaining questions. speech eval as above: Has been d/w pt and family and has been decided to proceed w/ feedings tube placement. D/w pt and she agrees to procedure. plan noon 06/29 Ancef risks: bleeding/infection/pneumonia blood clots. damage to bowel or colon or stomach. If gets pulled out before 2 wks time- would require laparotomy. Will require periodic changes. complications of anesthesia. cont. aspiration and need for conversation to J tube. and complications from anesthesia. History of Present Illness Chief Complaint: dysphagia secondary to meds Consults Consult date: 06/28/18 Requesting physician: Jaime More [facility] Medical History Atrial flutter (Chronic) Bipolar disorder (Chronic) Schizophrenia (Chronic) DVT prophylaxis (Chronic) Ambulatory dysfunction (Chronic) Developmental delay, borderline (Chronic) Migraine headache without aura (Chronic) Osteoporosis (Chronic) Depression with anxiety (Chronic) Chronic low back pain (Chronic) Osteoarthritis (Chronic) Hypothyroidism (Chronic) Arias's esophagus (Chronic) GERD (gastroesophageal reflux disease) (Chronic) Obstructive sleep apnea on CPAP (Chronic) Type 2 diabetes mellitus (Chronic) Hyperlipidemia (Chronic) Hypertension (Chronic) Urgency incontinence (Chronic 05/01/15) Tardive dyskinesia (Chronic 01/26/17) 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) Sensorineural hearing loss, bilateral (Chronic 01/07/15) Dysphagia, unspecified (Chronic 06/22/16) Surgical History H/O bilateral cataract extraction (Acute) H/O umbilical hernia repair (Acute) History of hysterectomy with bilateral oophorectomy (Acute) S/P cholecystectomy (Acute) H/O tubal ligation (Chronic) Family History Father Tremor Brother Tremor Sister Tremor Mother Heart disease Hypertension Sister Breast cancer Sister Stomach cancer Social History Smoking/Tobacco Use Status: Never Alcohol Intake: never Drug use: Never Substance use type: does not use Housing: assisted living facility Number of Children: 8 Do you feel safe in your relationship?: Yes Additional Social history: She attends [employer] 3x per week. Results Last Vital Signs Temp 37.0 C 06/28/18 12:51 Pulse 85 06/28/18 12:55 Resp 20 06/28/18 08:16 BP 140/82 06/28/18 12:55 Pulse Ox 93 L 06/28/18 13:04 Labs : 06/28/18 07:40 06/28/18 07:40 Laboratory Results - last 24 hr 06/28/18 06/28/18 07:40 07:40 WBC 3.22 L D RBC 4.32 Hgb 13.1 Hct 40.3 MCV 93.3 MCH 30.3 MCHC 32.5 RDW 13.1 Plt Count 160 MPV 11.0 Immature Gran % 0.3 Neutrophils % 41.3 Lymphocytes % 36.3 Monocytes % 14.3 Eosinophils % 7.5 Basophils % 0.3 Absolute Neutrophils 1.33 Absolute Lymphocytes 1.17 L Absolute Monocytes 0.46 Absolute Eosinophils 0.24 Absolute Basophils 0.01 Differential Comment Diff reviewed RBC Morphology Normal Sodium 141 Potassium 3.6 Chloride 104 Carbon Dioxide 28.9 Anion Gap 8.1 BUN 5 L Creatinine 0.81 Estimated GFR/1.73 m2 >= 60.00 Glucose 150 H Calcium 8.8 Magnesium 1.6 L
--- NOTE | 2018-06-28 15:52 | PHARADMIT ---
Addendum entered by Tricia Tom 07/12/18 17:15: Pharmacy Note Subjective Residuals from tube feeding improved, getting 6 bolus feeds/day Objective VS good, weight steady last 2 days although down 3.7 from admission 17 days ago labs good, BG 204 Assessment Discharge delayed per care management, MD did prepare discharge summary Plan Discharge 07/13/18 is anticipated Addendum entered by Raheem Dunn [facility] 07/10/18 14:12: Pharmacy Note Subjective Nutrition consult: PEG feeding adjusted to decrease residuals and lower chance for aspiration. Objective VS-OK K+3.2 Mag-1.9 SCr, H&H,WBC,Plts-stable, Wgt-91.8 kg BM today Assessment Mouthkote scheduled due to increased dry mouth. Plan CM working on paperwork (PASARR) which is holding up discharge to [facility] Addendum entered by Raheem Dunn III 07/06/18 16:25: Pharmacy Note Subjective Patient regrets getting PEG feeding tube, Feeding progressing slowly Objective VS-OK K+3.2 Mag-1.9 H&H,Plts,WBC-OK FSBS-129 BG-125 Wgt-90.1 kg BM today Assessment Vancomycin Aztreonam dc'd. On Lovenox . Has Insulin coverage Plan Aspiration pneumonia txt completed. Referral sent to [facility], accepted and awaiting transfer Addendum entered by Raheem Dunn III 07/01/18 12:16: Pharmacy Note Subjective Tube feeds progressing slowly, MD concerned with aspiration. Objective VS-OK, Pain:4/10 Mag-1.6 WBC- 9.98 H&H,Plts-OK, Assessment K+& Mag replaced. Plan Working with PT Back to [facility] on Wednesday Addendum entered by Raheem Dunn [facility] 06/30/18 15:17: Pharmacy Note Subjective PEG tube placed yesterday, meds & feedings through it started today. Working with PT Objective VS-OK Pain:6/10 (PEG tube site) Mag-1.5 K+3.7 SCr,H&H,Plts.WBC-OK Assessment Mag IV bolus, SASA started Plan Plan is for discharge to SNF on Wednesday, pending PEG feeding tolerance. Original Note: Admission Pharmacy Clinical Review failure to thrive Code Status DNR/DNI Current Weight 87.1 kg Renally Cleared and Narrow Therapeutic Index Meds Crcl ~53.40 mL/min current meds okay QTc Value / Action Taken QTc 457 BP Control, Fever BP 140/82 afebrile Electrolytes reviewed mag 1.6 DVT Prophylaxis enoxaparin d/c'd today Opiate Usage / Scheduled Bowel Regimen Ordered no/prn Plt/SCr for Heparin / Enoxaparin plt 160 SCr 0.81 INR for Warfarin n/a H/H stable, WBC/Bands h/h 13.1/40.3 wbc 3.22 Antibiotic appropriateness none Cultures and Sensitivities none Surgical ABX d/c within 24 hr n/a DM control / Insulin Dosing BG 150 sliding scale aspart Heart Failure (Check EF%) (WILLIE's, B-Block, Diuretics) metoprolol IV to PO Switch currently npo Home Meds Reviewed -propranolol may diminish the brochodilatory effect of albuterol -separate admin of levothyroxine from multivitamin Home Meds Not Ordered aspirin, clonazepam, dexlansoprazole(has pantoprazole ordered), escitalopram, insulin glargine, multivitamin, propranolol(has metoprolol ordered), simvastatin, valbenazine Comments surgical consult for feeding tube
--- NOTE | 2018-06-28 16:27 | CHAPLAIN ---
Philomena has several family members with her when I visited. I introduced myself, explained my role, and will continue to visit.
--- NOTE | 2018-06-28 16:49 | PT.INTREAT ---
Date of service: 06/28/18 Time of Service: 14:54 PT Notes Inpatient Physical Therapy Treatment Note [facility] Date: 06/28/18 PRECAUTIONS: Fall. Standard. SUBJECTIVE: Patient states that she feels pretty good and is agreeable to doing edge of bed seated exercises. OBJECTIVE: Patient seen lying in bed with cold pack on posterior neck and volar wrist. PAIN: 0/10. BED MOBILITY/TRANSFERS Sit-supine: Mod A with HOB 30 degrees Supine to sit: Max assist GAIT: Patient stated that she got significantly tired after her walk this morning and requested that walking activity be moved to another day. THEREX: Patient tolerated edge of bed exercises per exercise flowsheet. She also was instructed to do left lateral trunk flexion as she started to lean towards the right brought on probably by fatigue. Dyskinesias precipitated by increased fatigue. ASSESSMENT: Per update from housing case manager Shabnam, patient has agreed to having percutaneous endoscopic gastrostomy tube done to maximize nutritional intake. No schedule has been made for the said procedure. Plan is for patient to go to a SNF with PEG tube when medically stable. Patient will continue to benefit from skilled PT services in order to maximize functional mobility level and reduce fall PLAN: Continue with PT POC as initially established TREATMENT CODE/TIME: 72585 26 minutes beginning at 14:54 PM.
--- NOTE | 2018-06-28 17:00 | PTTR_ITS ---
Date of service: 06/28/18 Time of Service: 14:54 PT Notes Inpatient Physical Therapy Treatment Note [facility] Date: 06/28/18 PRECAUTIONS: Fall. Standard. SUBJECTIVE: Patient states that she feels pretty good and is agreeable to doing edge of bed seated exercises. OBJECTIVE: Patient seen lying in bed with cold pack on posterior neck and volar wrist. PAIN: 0/10. BED MOBILITY/TRANSFERS Sit-supine: Mod A with HOB 30 degrees Supine to sit: Max assist GAIT: Patient stated that she got significantly tired after her walk this morning and requested that walking activity be moved to another day. THEREX: Patient tolerated edge of bed exercises per exercise flowsheet. She also was instructed to do left lateral trunk flexion as she started to lean towards the right brought on probably by fatigue. Dyskinesias precipitated by increased fatigue. ASSESSMENT: Per update from spring encaser Shabnam, patient has agreed to having percutaneous endoscopic gastrostomy tube done to maximize nutritional intake. No schedule has been made for the said procedure. Plan is for patient to go to a SNF with PEG tube when medically stable. Patient will continue to benefit from skilled PT services in order to maximize functional mobility level and reduce fall PLAN: Continue with PT POC as initially established TREATMENT CODE/TIME: 37177 26 minutes beginning at 14:54 PM.
--- NOTE | 2018-06-28 17:59 | W.PM.PROGNOT ---
Date of Service Date of service: 06/28/18 Time of Service: 17:59 Assessment and Plan (1) Dysphagia, unspecified: Current visit: No Status: Chronic Patient appears to have Failure to Thrive at home - appeared dehydrated and unable to tolerate oral intake. She appears improved with IV Hydration from a mental status standpoint, but with failed swallow eval. Discussed goals of care in detail previously with patient and her sister who acts as her fulltime caregiver. She is agreeable to placement of a PEG tube. Surgery consulted, and procedure is tentatively scheduled for tomorrow. Qualifiers: Dysphagia type: unspecified Qualified Code(s): R13.10 - Dysphagia, unspecified (2) Atrial flutter: Current visit: Yes Status: Chronic New diagnosis last hospitalization, with patient in NSR. ECHO obtained last visit and essentially unremarkable. Already on BB, currently changed to IV Formulation. Discussed risks of anticoagulation previously given patient's history of Tardive Dyskinesia, Ambulatory Dysfunction, and multiple prior falls. Will continue to hold off anticoagulation - ultimately may not be a good candidate for anticoagulation. (3) Type 2 diabetes mellitus: Current visit: No Status: Chronic Previously was on basal insulin, held last hospitalization in setting of hypoglycemia and decreased oral intake. Patient's blood sugars had remained in the 80-100's even when eating. Continue with sliding scale coverage and monitor blood sugars. Currently NPO. (4) Hypothyroidism: Current visit: No Status: Chronic Continue replacement therapy but changed to equivalent dose IV Formulation of Levothyroxine. (5) Hypertension: Current visit: No Status: Chronic Continue BB therapy. Qualifiers: Hypertension type: essential hypertension Qualified Code(s): I10 - Essential (primary) hypertension (6) Schizophrenia: Current visit: Yes Status: Chronic Noted. 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 Previously discontinued patient's antipsychotic therapy with Cariprazine, but had continued patient's Valbenazine - now on hold as she is NPO. (8) DVT prophylaxis: Current visit: Yes Status: Chronic SC Lovenox. Also on PPI therapy for GI Prophylaxis. (9) Advance directive discussed with patient: Current visit: No Status: Chronic DNR/DNI. Subjective Interval history since last seen: 72 year old woman with a prior history of Schizophrenia, Bipolar Disorder, and Tardive Dyskinesia, admitted from [facility] Emergency Department on 06/25 with a diagnosis of Failure to Thrive. Ms. Adames a prior history of Bipolar disorder, Schizophrenia, Tardive Dyskinesia, and prior episodes of psychosis. Her other diagnosis include Hypothyroidism, HTN, dyslipidemia, DM, GERD, and ARMAND intolerant of CPAP. She also has a history of ambulatory dysfunction and dysphagia. The patient was just hospitalized here from 06/09-06/14 for treatment of Pneumonia and dysphagia. She also had a new onset of Atrial Flutter during that hospitalization, and a work-up for a presumed facial droop was negative, including MRI/MRA of the brain, Carotid Ultrasound, and an ECHO. Following treatment she was discharged in vastly improved condition, able to tolerate a modified diet and ambulating well with the assistance of a walker with Physical Therapy. She was discharged home to the care of her sister, with Home Health that included Visiting Nursing. She however became progressively weak and unable to tolerate oral feedings or medications, and was brought back for reevaluation. Work-up in the ED included essentially unremarkable labs, Urinalysis, CT of the head, and XRay of the chest. She was referred for admission for further evaluation and treatment. Ms. Adames appears improved with hydration, and appears at her baseline. She is verbal and appropriate, but remains NPO as per evaluation by speech. She is agreeable to a feeding tube now. No overnight events reported. Remains afebrile. Exam Narrative Exam Narrative: General: Patient appears comfortable, pleasant, awake and alert, NAD. Appears tremulous with b/l UE tremors, lip smacking, and abnormal tongue movements. Neck: Supple CV: Regular, nontachycardic, S1S2, No rubs, murmurs, or gallops. Pulmonary: Clear to auscultation bilaterally, no crackles or wheezing on limited exam. Abdomen: + Bowel Sounds, soft, nontender, nondistended Vascular: No lower extremity edema Psych: Normal mood and affect. Objective Objective Clinical Data: Abnormal lab results 06/28/18 06/28/18 Range/Units 07:40 07:40 WBC 3.22 L D (4.4-10.8) k/cumm Absolute Lymphocytes 1.17 L (1.2-3.4) k/cumm BUN 5 L (7-18) mg/dL Glucose 150 H (70-100) mg/dL Magnesium 1.6 L (1.8-2.4) mg/dL Vital Signs Temperature 36.8 C 06/28/18 15:25 Temperature Source Tympanic 06/28/18 15:25 Pulse 84 06/28/18 17:01 Pulse Rhythm Regular 06/28/18 17:56 Pulse 89 06/25/18 19:01 Respiratory Rate 20 06/28/18 15:25 Respiratory Effort Non-Labored 06/28/18 17:56 Respiratory Depth Normal 06/28/18 17:56 Respiratory Pattern Normal 06/28/18 17:56 Blood Pressure 121/73 06/28/18 17:01 Blood Pressure Mean 88 06/25/18 19:01 Pulse Oximetry 94 L 06/28/18 15:25 Oxygen Delivery Method Room Air 06/28/18 15:25 Oxygen Flow Rate 0 06/28/18 15:25 Pain Level 0 06/28/18 08:45 Comment 06/28/18 12:51 Intake & Output 06/27/18 06/28/18 06/28/18 23:59 11:59 23:59 Intake Total 1706.25 / 2071.25 365 / 2071.25 Output Total 800 / 2750 950 / 1650 700 / 1650 Balance -800 / -1750 756.25 / 421.25 -335 / 421.25 Weight 87.1 kg 87.1 kg Intake: IV 1706.25 / 2071.25 365 / 2071.25 Output: Urine 800 / 2750 950 / 1650 700 / 1650 Other: Urine Color Yellow Yellow Yellow Urine Appearance Clear Clear Clear Urine Odor Normal Normal Comment urine mixed with stool Mixed with liquid stool. Stool Size Moderate Moderate Moderate Stool Characteristics Soft Soft Liquid Voiding Methods Bedside Commode Bedside Commode Bedside Commode Laboratory Results WBC 3.22 k/cumm (4.4-10.8) L D 06/28/18 07:40 RBC 4.32 m/cumm (4.00-5.20) 06/28/18 07:40 Hgb 13.1 g/dL (12.0-15.5) 06/28/18 07:40 Hct 40.3 % (36.0-46.0) 06/28/18 07:40 MCV 93.3 fL (80-95) 06/28/18 07:40 MCH 30.3 pg (27.0-33.0) 06/28/18 07:40 MCHC 32.5 g/dL (32.0-36.0) 06/28/18 07:40 RDW 13.1 % (11.7-14.6) 06/28/18 07:40 Plt Count 160 x1000/uL (130-400) 06/28/18 07:40 MPV 11.0 fL (8.0-11.0) 06/28/18 07:40 Immature Gran % 0.3 06/28/18 07:40 Neutrophils % 41.3 06/28/18 07:40 Lymphocytes % 36.3 06/28/18 07:40 Monocytes % 14.3 06/28/18 07:40 Eosinophils % 7.5 06/28/18 07:40 Basophils % 0.3 06/28/18 07:40 Absolute Neutrophils 1.33 k/cumm (1.2-6.7) 06/28/18 07:40 Absolute Lymphocytes 1.17 k/cumm (1.2-3.4) L 06/28/18 07:40 Absolute Monocytes 0.46 k/cumm (0.11-0.7) 06/28/18 07:40 Absolute Eosinophils 0.24 k/cumm (0.0-0.7) 06/28/18 07:40 Absolute Basophils 0.01 k/cumm (0.0-0.2) 06/28/18 07:40 Differential Comment Diff reviewed 06/28/18 07:40 RBC Morphology Normal 06/28/18 07:40 Sodium 141 mmol/L (136-145) 06/28/18 07:40 Potassium 3.6 mmol/L (3.5-5.1) 06/28/18 07:40 Chloride 104 mmol/L (98-107) 06/28/18 07:40 Carbon Dioxide 28.9 mmol/L (21.0-32.0) 06/28/18 07:40 Anion Gap 8.1 mmol/L (3-11) 06/28/18 07:40 BUN 5 mg/dL (7-18) L 06/28/18 07:40 Creatinine 0.81 mg/dL (0.55-1.02) 06/28/18 07:40 Estimated GFR/1.73 m2 >= 60.00 (mL/min/1.73m2) 06/28/18 07:40 Glucose 150 mg/dL (70-100) H 06/28/18 07:40 Calcium 8.8 mg/dL (8.5-10.1) 06/28/18 07:40 Magnesium 1.6 mg/dL (1.8-2.4) L 06/28/18 07:40 Total Bilirubin 0.5 mg/dL (0.2-1.0) 06/25/18 18:15 AST 28 U/L (15-37) 06/25/18 18:15 ALT 24 U/L (12-78) 06/25/18 18:15 Alkaline Phosphatase 72 U/L (46-116) 06/25/18 18:15 Troponin I < 0.02 ng/mL (0.00-0.06) 06/26/18 08:22 Total Protein 6.5 g/dL (6.4-8.2) 06/25/18 18:15 Albumin 3.0 g/dL (3.4-5.0) L 06/25/18 18:15
[2018-06-28] MEDS: Acetaminophen 650 MG SUPP PR (18:34)
[2018-06-29] VITALS (24 sets, daily range): BP systolic 112–185; BP diastolic 42–82; PULSE 65–140; RESP 16–22; TEMP 36.2–36.8; O2SAT 94–100
[2018-06-29] MEDS: Normal Saline Flush 10 ML SYR IVP ×5 (00:09→19:48)
[2018-06-29] MEDS: Metoprolol 5 MG/5 ML VIAL 2.5 MG IVP ×2 (00:10→06:43)
[2018-06-29] MEDS: Levothyroxine 100 MCG VIAL 56 MCG IVP (06:43)
[2018-06-29 07:08] LABS: Absolute Basophil Count 0.02 k/cumm (0.0-0.2); Absolute Lymphocyte Count 1.48 k/cumm (1.2-3.4); Absolute Monocyte Count 0.58 k/cumm (0.11-0.7); Absolute Neutrophil Count 0.94 k/cumm (1.2-6.7); Basophils % 0.6; Eosinophils % 14.2; HCT 42.6 % (36.0-46.0); Mean Corp. HGB Concentration 32.9 g/dL (32.0-36.0); Mean Corpuscular Hemoglobin 30.4 pg (27.0-33.0); Mean Corpuscular Volume 92.6 fL (80-95); Mean Platelet Volume 10.7 fL (8.0-11.0); Monocytes % 16.5; Neutrophils % 26.7; Platelet Count 163 x1000/uL (130-400); RBC Distribution Width 13.3 % (11.7-14.6); White Blood Cell Count 3.52 k/cumm (4.4-10.8)
[2018-06-29 07:10] LABS: Anion Gap 5.8 mmol/L (3-11); BUN 5 mg/dL (7-18); CO2 30.2 mmol/L (21.0-32.0); CREATININE 0.74 mg/dL (0.55-1.02); Calcium 9.2 mg/dL (8.5-10.1); Chloride 106 mmol/L (98-107); Glucose 135 mg/dL (70-100); Magnesium 1.7 mg/dL (1.8-2.4); Potassium 4.2 mmol/L (3.5-5.1); Sodium 142 mmol/L (136-145)
--- NOTE | 2018-06-29 08:04 | PDOC.CMPRO ---
- If Service Date Differs Date of service: 06/29/18 Time of Service: 08:04 Care Management Progress Note S/O: Philomena was sitting up in the chair during CM visit. She expressed a bit of ambivalence about her imminent PEG tube placement but is committed to having it done. She is concerned it may be painful. Discussed discharge plans and again stated that she hopes to go to [facility]. She is not sure if she wants to remain there or eventually return to her sister's home. She is hoping that with improved nutrition she will be able to do some of the things she enjoys and specifically mentioned the hope of being able to go camping with her family this summer. A:Philomena is a 72 year old female admitted with a diagnosis of failure to thrive. She was recently hospitalized for aspiration pneumonia and dysphagia. P:Philomena has now decided that she wants to try a feeding tube. The procedure is scheduled for today. At discharge Philomena is requesting skilled care in a rehabilitation facility. Referral sent to [facility] by CM and the case was discussed with the residential leasing manager.
[2018-06-29] MEDS: Pantoprazole 40 MG VIAL IVP (08:26)
[2018-06-29] MEDS: Triamcinolone 0.1% CR 15 GM TUBE TP (08:27)
[2018-06-29 08:33] LABS: Diff Comment Agrees w/ Instrument; RBC Morphology Normal
[2018-06-29] MEDS: Lactated Ringers 1,000 ML 100 ML IV (11:12)
[2018-06-29] MEDS: CLINDAMYCIN 600 MG/50 ML BAG 100 MG IVPB ×2 (11:20→19:48)
[2018-06-29] MEDS: Lidocaine 1% Multi-Dose 50 ML VIAL (11:40)
--- NOTE | 2018-06-29 12:30 | PT.INTREAT ---
Date of service: 06/29/18 Time of Service: 10:04 PT Notes Inpatient Physical Therapy Treatment Note [facility] Date: 06/29/2017 PRECAUTIONS: Fall. Standard. SUBJECTIVE: Patient reports that she is ready PEG tube placement this morning. She states that she has had loose stools since this morning. OBJECTIVE: Patient seen sitting on chair for this session. IV line on right UE. PAIN: 0/10. BED MOBILITY LEVELS/TRANSFERS Rolling minimal assist Supine to sit moderate assist Sit to supine moderate assist Sit to stand CGA Stand to sit CGA Bed to chair CGA Chair to bed CGA GAIT: Patient tolerated in room ambulation for 20 feet x2 using the FWW is now feeling of legs giving out nor any leg thigh pain. CGA assist provided, minimal verbal cueing for walker management and overall safety needed. Out of bed activities deferred for the afternoon session as patient just returned from PEG tube placement and feels tired. THEREX: In the morning, patient tolerated standing level exercises per exercise flowsheet. Instructions on deep breathing exercises given in between each activity. In the afternoon, patient was able to complete bed level exercises per exercise flow sheet ASSESSMENT: Per update from child support case officer Shabnam, patient has agreed to having percutaneous endoscopic gastrostomy tube done to maximize nutritional intake. Patient leaves at 1130 this morning for PEG tube placement. Plan is for patient to go to a SNF with PEG tube when medically stable tentatively on Wednesday. Patient will continue to benefit from skilled PT services in order to maximize functional mobility level and reduce fall risk. Patient was seen again later in the afternoon upon return from PEG tube placement. PLAN: Continue with PT POC as initially established. TREATMENT CODE/TIME: Morning session [id number] 28 minutes beginning at 10:04 PM. Afternoon session [id number] 15 minutes beginning at 15:21 PM.
--- NOTE | 2018-06-29 12:36 | PGE_ITS ---
Date of Service Date of service: 06/29/18 Time of Service: 12:30 Assessment and Plan (1) Dysphagia, unspecified: Current visit: No Status: Chronic Patient appears to have Failure to Thrive at home - appeared dehydrated and unable to tolerate oral intake. She appears improved with IV Hydration from a mental status standpoint, but with failed swallow eval. Discussed goals of care in detail previously with patient and her sister who acts as her fulltime caregiver. She is agreeable to placement of a PEG tube. Surgery consulted, and procedure is scheduled for later this morning. Will need to discuss timing for use, and reinitiate medications, tube feeds, free water etc. Nutrition consult placed. Qualifiers: Dysphagia type: unspecified Qualified Code(s): R13.10 - Dysphagia, unspecified (2) Atrial flutter: Current visit: Yes Status: Chronic New diagnosis last hospitalization, with patient in NSR. ECHO obtained last visit and essentially unremarkable. Already on BB, currently changed to IV Formulation. Discussed risks of anticoagulation previously given patient's history of Tardive Dyskinesia, Ambulatory Dysfunction, and multiple prior falls. Will continue to hold off anticoagulation - ultimately may not be a good candidate for anticoagulation. (3) Type 2 diabetes mellitus: Current visit: No Status: Chronic Previously was on basal insulin, held last hospitalization in setting of hypoglycemia and decreased oral intake. Patient's blood sugars had remained in the 80-100's even when eating. Continue with sliding scale coverage and monitor blood sugars. Currently NPO. (4) Hypothyroidism: Current visit: No Status: Chronic Continue replacement therapy but changed to equivalent dose IV Formulation of Levothyroxine. (5) Hypertension: Current visit: No Status: Chronic Continue IVBB therapy. Qualifiers: Hypertension type: essential hypertension Qualified Code(s): I10 - Essential (primary) hypertension (6) Schizophrenia: Current visit: Yes Status: Chronic Noted. 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 PPatient's Valbenazine on hold as she is NPO. (8) DVT prophylaxis: Current visit: Yes Status: Chronic SC Lovenox. Also on PPI therapy for GI Prophylaxis. (9) Advance directive discussed with patient: Current visit: No Status: Chronic DNR/DNI. Subjective Interval history since last seen: 72 year old woman with a prior history of Schizophrenia, Bipolar Disorder, and Tardive Dyskinesia, admitted from [facility] Emergency Department on 06/25 with a diagnosis of Failure to Thrive. Ms. Adames a prior history of Bipolar disorder, Schizophrenia, Tardive Dyskinesia, and prior episodes of psychosis. Her other diagnosis include Hypothyroidism, HTN, dyslipidemia, DM, GERD, and ARMAND intolerant of CPAP. She also has a history of ambulatory dysfunction and dysphagia. The patient was just hospitalized here from 06/09-06/14 for treatment of Pneumonia and dysphagia. She also had a new onset of Atrial Flutter during that hospitalization, and a work- up for a presumed facial droop was negative, including MRI/MRA of the brain, Carotid Ultrasound, and an ECHO. Following treatment she was discharged in vastly improved condition, able to tolerate a modified diet and ambulating well with the assistance of a walker with Physical Therapy. She was discharged home to the care of her sister, with Home Health that included Visiting Nursing. She however became progressively weak and unable to tolerate oral feedings or medications, and was brought back for reevaluation. Work-up in the ED included essentially unremarkable labs, Urinalysis, CT of the head, and XRay of the chest. She was referred for admission for further evaluation and treatment. Ms. Adames appears improved with hydration, and appears at her baseline. She is verbal and appropriate, but remains NPO as per evaluation by speech. She is agreeable to a feeding tube, scheduled for later this morning. No overnight events reported. Remains afebrile. Exam Narrative Exam Narrative: General: Patient appears comfortable, pleasant, awake and alert, NAD. Appears tremulous with b/l UE tremors, lip smacking, and abnormal tongue movements. Neck: Supple CV: Regular, nontachycardic, S1S2, No rubs, murmurs, or gallops. Pulmonary: Clear to auscultation bilaterally, no crackles or wheezing on limited exam. Abdomen: + Bowel Sounds, soft, nontender, nondistended Vascular: No lower extremity edema Psych: Normal mood and affect. Objective Objective Clinical Data: Abnormal lab results 06/29/18 06/29/18 Range/Units 06:45 06:45 WBC 3.52 L (4.4-10.8) k/cumm Absolute Neutrophils 0.94 L (1.2-6.7) k/cumm BUN 5 L (7-18) mg/dL Glucose 135 H (70-100) mg/dL Magnesium 1.7 L (1.8-2.4) mg/dL Vital Signs Temperature 36.3 C L 06/29/18 07:30 Temperature Source Tympanic 06/29/18 07:30 Pulse 80 06/29/18 07:30 Pulse Rhythm Regular 06/29/18 08:10 Pulse 89 06/25/18 19:01 Respiratory Rate 22 06/29/18 07:30 Respiratory Effort Non-Labored 06/29/18 08:10 Respiratory Depth Normal 06/29/18 08:10 Respiratory Pattern Normal 06/29/18 08:10 Blood Pressure 147/62 H 06/29/18 07:30 Blood Pressure Mean 88 06/25/18 19:01 Pulse Oximetry 96 06/29/18 07:30 Oxygen Delivery Method Room Air 06/29/18 07:30 Oxygen Flow Rate 0 06/29/18 07:30 Pain Level 0 06/29/18 07:30 Comment 06/28/18 12:51 Intake & Output 06/28/18 06/29/18 06/29/18 23:59 11:59 23:59 Intake Total 957.50 / 2663.75 997.5 / 997.5 Output Total 1200 / 2150 350 / 350 Balance -242.50 / 513.75 647.5 / 647.5 Weight 87.1 kg 88.5 kg Intake: IV 957.50 / 2663.75 997.5 / 997.5 Oral 0 / 0 Output: Urine 1200 / 2150 350 / 350 Other: Urine Color Yellow Yellow Urine Appearance Clear Clear Urine Odor Normal Comment Mixed with liquid stool. mixed with a little bm Stool Size Moderate Moderate Stool Characteristics Liquid Liquid Brown Voiding Methods Bedside Commode Bedside Commode Laboratory Results WBC 3.52 k/cumm (4.4-10.8) L 06/29/18 06:45 RBC 4.60 m/cumm (4.00-5.20) 06/29/18 06:45 Hgb 14.0 g/dL (12.0-15.5) 06/29/18 06:45 Hct 42.6 % (36.0-46.0) 06/29/18 06:45 MCV 92.6 fL (80-95) 06/29/18 06:45 MCH 30.4 pg (27.0-33.0) 06/29/18 06:45 MCHC 32.9 g/dL (32.0-36.0) 06/29/18 06:45 RDW 13.3 % (11.7-14.6) 06/29/18 06:45 Plt Count 163 x1000/uL (130-400) 06/29/18 06:45 MPV 10.7 fL (8.0-11.0) 06/29/18 06:45 Immature Gran % 0.0 06/29/18 06:45 Neutrophils % 26.7 06/29/18 06:45 Lymphocytes % 42.0 06/29/18 06:45 Monocytes % 16.5 06/29/18 06:45 Eosinophils % 14.2 06/29/18 06:45 Basophils % 0.6 06/29/18 06:45 Absolute Neutrophils 0.94 k/cumm (1.2-6.7) L 06/29/18 06:45 Absolute Lymphocytes 1.48 k/cumm (1.2-3.4) 06/29/18 06:45 Absolute Monocytes 0.58 k/cumm (0.11-0.7) 06/29/18 06:45 Absolute Eosinophils 0.50 k/cumm (0.0-0.7) 06/29/18 06:45 Absolute Basophils 0.02 k/cumm (0.0-0.2) 06/29/18 06:45 Differential Comment Agrees w/ instrument 06/29/18 06:45 RBC Morphology Normal 06/29/18 06:45 Sodium 142 mmol/L (136-145) 06/29/18 06:45 Potassium 4.2 mmol/L (3.5-5.1) 06/29/18 06:45 Chloride 106 mmol/L (98-107) 06/29/18 06:45 Carbon Dioxide 30.2 mmol/L (21.0-32.0) 06/29/18 06:45 Anion Gap 5.8 mmol/L (3-11) 06/29/18 06:45 BUN 5 mg/dL (7-18) L 06/29/18 06:45 Creatinine 0.74 mg/dL (0.55-1.02) 06/29/18 06:45 Estimated GFR/1.73 m2 >= 60.00 (mL/min/1.73m2) 06/29/18 06:45 Glucose 135 mg/dL (70-100) H 06/29/18 06:45 Calcium 9.2 mg/dL (8.5-10.1) 06/29/18 06:45 Magnesium 1.7 mg/dL (1.8-2.4) L 06/29/18 06:45 Total Bilirubin 0.5 mg/dL (0.2-1.0) 06/25/18 18:15 AST 28 U/L (15-37) 06/25/18 18:15 ALT 24 U/L (12-78) 06/25/18 18:15 Alkaline Phosphatase 72 U/L (46-116) 06/25/18 18:15 Troponin I < 0.02 ng/mL (0.00-0.06) 06/26/18 08:22 Total Protein 6.5 g/dL (6.4-8.2) 06/25/18 18:15 Albumin 3.0 g/dL (3.4-5.0) L 06/25/18 18:15
--- NOTE | 2018-06-29 12:39 | PTTR_ITS ---
Date of service: 06/29/18 Time of Service: 10:04 PT Notes Inpatient Physical Therapy Treatment Note [facility] Date: 06/29/2017 PRECAUTIONS: Fall. Standard. SUBJECTIVE: Patient reports that she is ready PEG tube placement this morning. She states that she has had loose stools since this morning. OBJECTIVE: Patient seen sitting on chair for this session. IV line on right UE. PAIN: 0/10. BED MOBILITY LEVELS/TRANSFERS Rolling minimal assist Supine to sit moderate assist Sit to supine moderate assist Sit to stand CGA Stand to sit CGA Bed to chair CGA Chair to bed CGA GAIT: Patient tolerated in room ambulation for 20 feet x2 using the FWW is now feeling of legs giving out nor any leg thigh pain. CGA assist provided, minimal verbal cueing for walker management and overall safety needed. Out of bed activities deferred for the afternoon session as patient just returned from PEG tube placement and feels tired. THEREX: In the morning, patient tolerated standing level exercises per exercise flowsheet. Instructions on deep breathing exercises given in between each activity. In the afternoon, patient was able to complete bed level exercises per exercise flow sheet ASSESSMENT: Per update from telephonic case manager Shabnam, patient has agreed to having percutaneous endoscopic gastrostomy tube done to maximize nutritional intake. Patient leaves at 1130 this morning for PEG tube placement. Plan is for patient to go to a SNF with PEG tube when medically stable tentatively on Wednesday. Tim ross will continue to benefit from skilled PT services in order to maximize functional mobility level and reduce fall risk. Patient was seen again later in the afternoon upon return from PEG tube placement. PLAN: Continue with PT POC as initially established. TREATMENT CODE/TIME: Morning session [id number] 28 minutes beginning at 10:04 PM. Afternoon session [id number] 15 minutes beginning at 15:21 PM.
--- NOTE | 2018-06-29 12:39 | W.PM.ENDDOP ---
Date of service: 06/29/18 Time of Service: 12:39 Endoscopy Report DATE OF PROCEDURE: 06/29/18 PRE-OP DIAGNOSIS: dysphagia POST-OP DIAGNOSIS: same PROCEDURE: egd and PEG SURGEON: Ashley Evans ANESTHESIA: GETA ESTIMATED BLOOD LOSS: 5 PATHOLOGY: none sent COMPLICATIONS: None DISPOSITION: PACU INDICATIONS: dysphagia FINDINGS: bile reflux into stomach and esoph PROCEDURE DESCRIPTION: dictated
--- NOTE | 2018-06-29 12:45 | W.PM.PROGNOT ---
Date of Service Date of service: 06/29/18 Time of Service: 12:45 Assessment and Plan (1) Dysphagia causing pulmonary aspiration with swallowing: Current visit: Yes Status: Acute feeding tube placed. keep NPO for 24 hrs than can start tube feeds biotene mouthwash- swish and spit for dry tongue/throat IV abx for 72 hr clina and than can dc. (pt could be d/c'ed w/ abx soln) local tube care feedings per hosp/nutrition Objective Objective Clinical Data: Abnormal lab results 06/29/18 06/29/18 Range/Units 06:45 06:45 WBC 3.52 L (4.4-10.8) k/cumm Absolute Neutrophils 0.94 L (1.2-6.7) k/cumm BUN 5 L (7-18) mg/dL Glucose 135 H (70-100) mg/dL Magnesium 1.7 L (1.8-2.4) mg/dL Vital Signs Temperature 36.3 C L 06/29/18 07:30 Temperature Source Tympanic 06/29/18 07:30 Pulse 80 06/29/18 07:30 Pulse Rhythm Regular 06/29/18 08:10 Pulse 89 06/25/18 19:01 Respiratory Rate 22 06/29/18 07:30 Respiratory Effort Non-Labored 06/29/18 08:10 Respiratory Depth Normal 06/29/18 08:10 Respiratory Pattern Normal 06/29/18 08:10 Blood Pressure 147/62 H 06/29/18 07:30 Blood Pressure Mean 88 06/25/18 19:01 Pulse Oximetry 96 06/29/18 07:30 Oxygen Delivery Method Room Air 06/29/18 07:30 Oxygen Flow Rate 0 06/29/18 07:30 Pain Level 0 06/29/18 07:30 Comment 06/28/18 12:51 Intake & Output 06/28/18 06/29/18 06/29/18 23:59 11:59 23:59 Intake Total 957.50 / 2663.75 997.5 / 997.5 Output Total 1200 / 2150 350 / 350 Balance -242.50 / 513.75 647.5 / 647.5 Weight 87.1 kg 88.5 kg Intake: IV 957.50 / 2663.75 997.5 / 997.5 Oral 0 / 0 Output: Urine 1200 / 2150 350 / 350 Other: Urine Color Yellow Yellow Urine Appearance Clear Clear Urine Odor Normal Comment Mixed with liquid stool. mixed with a little bm Stool Size Moderate Moderate Stool Characteristics Liquid Liquid Brown Voiding Methods Bedside Commode Bedside Commode Laboratory Results WBC 3.52 k/cumm (4.4-10.8) L 06/29/18 06:45 RBC 4.60 m/cumm (4.00-5.20) 06/29/18 06:45 Hgb 14.0 g/dL (12.0-15.5) 06/29/18 06:45 Hct 42.6 % (36.0-46.0) 06/29/18 06:45 MCV 92.6 fL (80-95) 06/29/18 06:45 MCH 30.4 pg (27.0-33.0) 06/29/18 06:45 MCHC 32.9 g/dL (32.0-36.0) 06/29/18 06:45 RDW 13.3 % (11.7-14.6) 06/29/18 06:45 Plt Count 163 x1000/uL (130-400) 06/29/18 06:45 MPV 10.7 fL (8.0-11.0) 06/29/18 06:45 Immature Gran % 0.0 06/29/18 06:45 Neutrophils % 26.7 06/29/18 06:45 Lymphocytes % 42.0 06/29/18 06:45 Monocytes % 16.5 06/29/18 06:45 Eosinophils % 14.2 06/29/18 06:45 Basophils % 0.6 06/29/18 06:45 Absolute Neutrophils 0.94 k/cumm (1.2-6.7) L 06/29/18 06:45 Absolute Lymphocytes 1.48 k/cumm (1.2-3.4) 06/29/18 06:45 Absolute Monocytes 0.58 k/cumm (0.11-0.7) 06/29/18 06:45 Absolute Eosinophils 0.50 k/cumm (0.0-0.7) 06/29/18 06:45 Absolute Basophils 0.02 k/cumm (0.0-0.2) 06/29/18 06:45 Differential Comment Agrees w/ instrument 06/29/18 06:45 RBC Morphology Normal 06/29/18 06:45 Sodium 142 mmol/L (136-145) 06/29/18 06:45 Potassium 4.2 mmol/L (3.5-5.1) 06/29/18 06:45 Chloride 106 mmol/L (98-107) 06/29/18 06:45 Carbon Dioxide 30.2 mmol/L (21.0-32.0) 06/29/18 06:45 Anion Gap 5.8 mmol/L (3-11) 06/29/18 06:45 BUN 5 mg/dL (7-18) L 06/29/18 06:45 Creatinine 0.74 mg/dL (0.55-1.02) 06/29/18 06:45 Estimated GFR/1.73 m2 >= 60.00 (mL/min/1.73m2) 06/29/18 06:45 Glucose 135 mg/dL (70-100) H 06/29/18 06:45 Calcium 9.2 mg/dL (8.5-10.1) 06/29/18 06:45 Magnesium 1.7 mg/dL (1.8-2.4) L 06/29/18 06:45 Total Bilirubin 0.5 mg/dL (0.2-1.0) 06/25/18 18:15 AST 28 U/L (15-37) 06/25/18 18:15 ALT 24 U/L (12-78) 06/25/18 18:15 Alkaline Phosphatase 72 U/L (46-116) 06/25/18 18:15 Troponin I < 0.02 ng/mL (0.00-0.06) 06/26/18 08:22 Total Protein 6.5 g/dL (6.4-8.2) 06/25/18 18:15 Albumin 3.0 g/dL (3.4-5.0) L 06/25/18 18:15
[2018-06-29] MEDS: MORPHine 10 MG/ML VIAL 2 MG IVP (16:01)
[2018-06-29] MEDS: Insulin Aspart 300 UNITS/3 ML PEN SC (17:54)
[2018-06-29] MEDS: Acetaminophen 650 MG SUPP PR ×2 (17:58→21:26)
[2018-06-29] MEDS: clonazePAM 0.5 MG TAB UD (22:34)
[2018-06-29] MEDS: Simvastatin 20 MG TAB UD (22:34)
[2018-06-30] VITALS (7 sets, daily range): BP systolic 106–129; BP diastolic 52–78; PULSE 94–119; RESP 16–18; TEMP 36.7–37.4; O2SAT 92–94
[2018-06-30] MEDS: Insulin Aspart 300 UNITS/3 ML PEN SC ×5 (00:36→23:30)
[2018-06-30] MEDS: CLINDAMYCIN 600 MG/50 ML BAG 100 MG IVPB ×3 (04:54→20:58)
[2018-06-30] MEDS: Levothyroxine 112 MCG TAB UD (05:56)
[2018-06-30] MEDS: Acetaminophen 650 MG SUPP PR ×2 (06:25→10:46)
--- NOTE | 2018-06-30 07:14 | ROE_ITS ---
REPORT OF OPERATIVE PROCEDURE DATE OF PROCEDURE June 29, 2018 PREOPERATIVE DIAGNOSIS Dysphagia. POSTOPERATIVE DIAGNOSIS Dysphagia. PROCEDURE EGD and percutaneous and gastrostomy tube. SURGEON Ashley Evans M.D. CAN STACKER Shayla Gil M.D. ANESTHESIA General. ESTIMATED BLOOD LOSS 5 cc COMPLICATIONS The patient tolerated the procedure well without complication. INDICATIONS Ms. Adames is a 72-year-old female who has chronic progressive dysphagia. She has also had a stroke in the past. She has also been on long-standing antipsychotic medications, which have given her severe tardive dyskinesia and dysphagia resulting in aspiration and she is here today for a feeding tube. Informed consent was obtained, explaining the risks and benefits of the procedure including, but not limited to, bleeding, infection, perforation, aspiration, and complications from the anesthesia, if the tube gets pulled out within two weeks of placement, then she will need a laparotomy, damage to colon or stomach, it will require tube changes in the future and other unforetold complications. PROCEDURE DESCRIPTION The patient was brought to the surgical suite and general anesthesia was administered per the Department of Anesthesia. Timeout is performed. She did receive preoperative antibiotics. The EGD scope was inserted into the oropharynx and passed down into the esophagus. She has no esophageal erosions, varices, diverticula or stricture apparent. The stomach appears grossly normal. She has a few hypertrophied Tyrell's glands. The pylorus is freely patent and the scope was passed into the duodenum. There was bile reflux into the stomach and in her esophagus as we were initially passing the scope. A suitable site for the tube is chosen by light translocation and direct palpation. The abdominal wall was prepped and draped in a sterile fashion using a ChloraPrep scrub solution. Then, 20 cc of 1% lidocaine was used for local anesthetization. The needle was inserted through the anterior abdominal wall, and was visualized in the stomach. The guidewire was inserted through the needle, and snared. The EGD scope and guidewire are than pulled out through the mouth. The needle is removed. The previous lubricated tube was then easily inserted onto the wire and pulled into proper position. The scope was re- inserted in the oropharynx. There was no bleeding noted. The hub spun freely and is in good position. The scope was then withdrawn and the stomach desufflated. The bumper was placed. The patient tolerated the procedure well without complications and returned to the PACU in stable condition.
[2018-06-30 07:23] LABS: Anion Gap 7.8 mmol/L (3-11); BUN 6 mg/dL (7-18); CO2 29.2 mmol/L (21.0-32.0); CREATININE 0.76 mg/dL (0.55-1.02); Calcium 8.8 mg/dL (8.5-10.1); Chloride 103 mmol/L (98-107); Glucose 159 mg/dL (70-100); Magnesium 1.5 mg/dL (1.8-2.4); Potassium 3.7 mmol/L (3.5-5.1); Sodium 140 mmol/L (136-145)
[2018-06-30 07:24] LABS: Abs Immature Grans 0.01 k/cumm (0.0-0.09); Absolute Basophil Count 0.02 k/cumm (0.0-0.2); Absolute Eosinophil Count 0.05 k/cumm (0.0-0.7); Absolute Lymphocyte Count 2.04 k/cumm (1.2-3.4); Absolute Monocyte Count 1.11 k/cumm (0.11-0.7); Basophils % 0.3; Eosinophils % 0.7; HCT 40.5 % (36.0-46.0); HGB 13.4 g/dL (12.0-15.5); Immature Grans % 0.1; Lymphocytes % 29.7; Mean Corp. HGB Concentration 33.1 g/dL (32.0-36.0); Mean Corpuscular Hemoglobin 30.6 pg (27.0-33.0); Mean Corpuscular Volume 92.5 fL (80-95); Mean Platelet Volume 11.3 fL (8.0-11.0); Monocytes % 16.2; Platelet Count 173 x1000/uL (130-400); RBC 4.38 m/cumm (4.00-5.20); RBC Distribution Width 13.4 % (11.7-14.6); White Blood Cell Count 6.86 k/cumm (4.4-10.8)
[2018-06-30 07:27] LABS: Absolute Neutrophil Count 3.64 k/cumm (1.2-6.7)
--- NOTE | 2018-06-30 07:51 | CMPROGNOTE_ITS ---
- If Service Date Differs Date of service: 06/30/18 Time of Service: 07:50 Care Management Progress Note S/O: Philomena was sitting up in a chair when CM came to visit. She states that her PEG tube site hurts but less than before she received pain medicine for it. She received her medications through the tube last evening and will begin tube feeding this afternoon. She did not sleep well again last night. She is still trying to adjust to the changes that are happening and is a little fearful of what it will be like when she gets feedings through the tube and about her up coming transfer to a alf facility. A:Philomena is a 72 year old female admitted with a diagnosis of failure to thrive. She was recently hospitalized for aspiration pneumonia and dysphagia. P:Philomena had a PEG tube placed yesterday. At discharge Philomena is requesting skilled care in a rehabilitation facility. Referral was sent to [facility] by CM and the case was discussed with the construction equipment mechanic helper. A bed will be available on Wednesday. CM will continue to support the patient, family, care team and discharge planning.
[2018-06-30] MEDS: Normal Saline Flush 10 ML SYR IVP ×6 (08:59→21:21)
[2018-06-30] MEDS: Multivitamin TAB 1 TAB UD (09:38)
[2018-06-30] MEDS: Pantoprazole 40 MG VIAL IVP (09:38)
[2018-06-30] MEDS: Aspirin 81 MG CHEW UD (09:38)
[2018-06-30] MEDS: Escitalopram 10 MG TAB 30 MG UD (09:38)
[2018-06-30] MEDS: MAGNESIUM SULFATE 2 GM/50 ML BAG IVPB (09:39)
[2018-06-30] MEDS: Potassium Chloride Liquid 20 MEQ PKT PO (09:39)
[2018-06-30] MEDS: clonazePAM 0.5 MG TAB 0.25 MG UD (10:47)
--- NOTE | 2018-06-30 11:58 | W.PM.PROGNOT ---
Date of Service Date of service: 06/30/18 Time of Service: 11:58 Assessment and Plan (1) S/P percutaneous endoscopic gastrostomy (PEG) tube placement: Current visit: Yes Status: Acute PEG site intact and healing well. Abdomen benign. Tube feeds to be started this afternoon. Nothing further to add at this time. Will be available/please call if needed. Subjective Interval history since last seen: Patient up in chair. Seen with family at bedside. Had EGD/PEG 06/29/18. Notes some soreness at PEG site on questioning. No complaints. Tube feeds to be started this afternoon. Exam Const General: cooperative and no acute distress Eyes Sclera: sclerae normal Resp Effort & Inspection: normal respiratory effort GI Inspection: non-distended Palpation: soft, not firm, no guarding, not rigid and tender (minimal tenderness - expected at PEG site; clean/dry; dressings in place) Objective Objective Clinical Data: Abnormal lab results 06/30/18 06/30/18 Range/Units 06:35 06:35 MPV 11.3 H (8.0-11.0) fL Absolute Monocytes 1.11 H (0.11-0.7) k/cumm BUN 6 L (7-18) mg/dL Glucose 159 H (70-100) mg/dL Magnesium 1.5 L (1.8-2.4) mg/dL Vital Signs Temperature 37.4 C 06/30/18 07:35 Temperature Source Tympanic 06/30/18 07:35 Pulse 99 H 06/30/18 07:35 Pulse Rhythm Regular 06/30/18 06:44 Pulse 89 06/25/18 19:01 Respiratory Rate 18 06/30/18 07:35 Respiratory Effort 06/30/18 06:44 Respiratory Depth Normal 06/30/18 06:44 Respiratory Pattern Normal 06/30/18 06:44 Blood Pressure 118/52 L 06/30/18 07:35 Blood Pressure Mean 88 06/25/18 19:01 Pulse Oximetry 92 L 06/30/18 07:35 Respiratory End-tidal CO2 17 06/29/18 13:28 Oxygen Delivery Method Room Air 06/30/18 07:35 Oxygen Flow Rate 0 06/30/18 07:35 Pain Level 10 06/30/18 10:46 Comment 06/29/18 15:10 Intake & Output 06/29/18 06/29/18 06/30/18 11:59 23:59 11:59 Intake Total 997.5 / 2597.50 1600.00 / 2597.50 1598.333 / 1598.333 Output Total 350 / 850 500 / 850 350 / 350 Balance 647.5 / 1747.50 1100.00 / 1747.50 1248.333 / 1248.333 Weight 88.5 kg 87.1 kg Intake: IV 997.5 / 2597.50 1600.00 / 2597.50 1598.333 / 1598.333 Oral 0 / 0 0 / 0 Output: Urine 350 / 850 500 / 850 350 / 350 Other: Urine Color Yellow Yellow Pale Yellow Urine Appearance Clear Clear Clear Urine Odor Normal None Comment mixed with a little bm SEVERAL SPOTS THAT APPEARED TO BE OILY IN URINE IN BSC Stool Size Moderate Stool Characteristics Liquid Brown Emesis Description None Voiding Methods Bedside Commode Bedside Commode Bedside Commode Laboratory Results WBC 6.86 k/cumm (4.4-10.8) D 06/30/18 06:35 RBC 4.38 m/cumm (4.00-5.20) 06/30/18 06:35 Hgb 13.4 g/dL (12.0-15.5) 06/30/18 06:35 Hct 40.5 % (36.0-46.0) 06/30/18 06:35 MCV 92.5 fL (80-95) 06/30/18 06:35 MCH 30.6 pg (27.0-33.0) 06/30/18 06:35 MCHC 33.1 g/dL (32.0-36.0) 06/30/18 06:35 RDW 13.4 % (11.7-14.6) 06/30/18 06:35 Plt Count 173 x1000/uL (130-400) 06/30/18 06:35 MPV 11.3 fL (8.0-11.0) H 06/30/18 06:35 Immature Gran % 0.1 06/30/18 06:35 Neutrophils % 53.0 06/30/18 06:35 Lymphocytes % 29.7 06/30/18 06:35 Monocytes % 16.2 06/30/18 06:35 Eosinophils % 0.7 06/30/18 06:35 Basophils % 0.3 06/30/18 06:35 Absolute Neutrophils 3.64 k/cumm (1.2-6.7) 06/30/18 06:35 Absolute Lymphocytes 2.04 k/cumm (1.2-3.4) 06/30/18 06:35 Absolute Monocytes 1.11 k/cumm (0.11-0.7) H 06/30/18 06:35 Absolute Eosinophils 0.05 k/cumm (0.0-0.7) 06/30/18 06:35 Absolute Basophils 0.02 k/cumm (0.0-0.2) 06/30/18 06:35 Differential Comment Agrees w/ instrument 06/29/18 06:45 RBC Morphology Normal 06/29/18 06:45 Sodium 140 mmol/L (136-145) 06/30/18 06:35 Potassium 3.7 mmol/L (3.5-5.1) 06/30/18 06:35 Chloride 103 mmol/L (98-107) 06/30/18 06:35 Carbon Dioxide 29.2 mmol/L (21.0-32.0) 06/30/18 06:35 Anion Gap 7.8 mmol/L (3-11) 06/30/18 06:35 BUN 6 mg/dL (7-18) L 06/30/18 06:35 Creatinine 0.76 mg/dL (0.55-1.02) 06/30/18 06:35 Estimated GFR/1.73 m2 >= 60.00 (mL/min/1.73m2) 06/30/18 06:35 Glucose 159 mg/dL (70-100) H 06/30/18 06:35 Calcium 8.8 mg/dL (8.5-10.1) 06/30/18 06:35 Magnesium 1.5 mg/dL (1.8-2.4) L 06/30/18 06:35 Total Bilirubin 0.5 mg/dL (0.2-1.0) 06/25/18 18:15 AST 28 U/L (15-37) 06/25/18 18:15 ALT 24 U/L (12-78) 06/25/18 18:15 Alkaline Phosphatase 72 U/L (46-116) 06/25/18 18:15 Troponin I < 0.02 ng/mL (0.00-0.06) 06/26/18 08:22 Total Protein 6.5 g/dL (6.4-8.2) 06/25/18 18:15 Albumin 3.0 g/dL (3.4-5.0) L 06/25/18 18:15
--- NOTE | 2018-06-30 12:59 | PT.INTREAT ---
Date of service: 06/30/18 Time of Service: 12:59 PT Notes Inpatient Physical Therapy Treatment Note [facility] Date: 06/30/18 PRECAUTIONS: Fall, PEG tube SUBJECTIVE: Philomena is agreeable to participating in PT. She reports that she will be receiving feeding through her PEG tube a little later today. OBJECTIVE: PAIN: Patient c/o surgical site pain with gait training BED MOBILITY/TRANSFERS Sit-stand: Min A Stand-sit: CGA with cueing for safety GAIT Assistive Device: FWW Weight bearing: Full Assist: CGA Distance: 12' Deviation: Distance limited due to surgical site pain THEREX: Patient completed LAQ and shoulder flexion exercises, in a seated position, as per flow sheet. ASSESSMENT: Patient tolerated session with c/o increased surgical site pain with gait training, which limited her willingness to participate. She would benefit from continued transfer and gait training, as well as global strengthening for improved activity tolerance and mobility. PLAN: Continue with PT's POC TREATMENT CODE/TIME: 20 minutes; 81133
[2018-06-30] MEDS: Triamcinolone 0.1% CR 15 GM TUBE TP (15:00)
--- NOTE | 2018-06-30 15:34 | PGE_ITS ---
Date of Service Date of service: 06/30/18 Time of Service: 15:26 Assessment and Plan (1) Dysphagia, unspecified: Current visit: No Status: Chronic Patient appears to have Failure to Thrive at home - appeared dehydrated and unable to tolerate oral intake. She improved with IV Hydration from a mental status standpoint, but with failed swallow eval. COLST Form reviewed on initial day after admission. Mrs. Adames had indicated that she wanted 'everything done' initially when discussing her condition, then discussed not pursuing a feeding tube. There was then an in-depth discussion of care with patient and her sister who acts as her caregiver, and they were given time to discuss this. Ms. Adames eventually decided on pursuing a 'Feeding Tube'. Surgery was consulted, and procedure was performed on 06/29. Unfortunately the patient's Palliative care provider was not available for consultation during this period. Currently supplying home meds via Tube, and will be initiating tube feeds and free water later this afternoon.Nutrition consult in place. Qualifiers: Dysphagia type: unspecified Qualified Code(s): R13.10 - Dysphagia, unspecified (2) Atrial flutter: Current visit: Yes Status: Chronic New diagnosis last hospitalization, with patient in NSR. ECHO obtained last visit and essentially unremarkable. Already on BB - will change to PO short-acting formulation for ease of administration through feeding tube. Discussed risks of anticoagulation previously given patient's history of Tardive Dyskinesia, Ambulatory Dysfunction, and multiple prior falls. Will continue to hold off anticoagulation - ultimately may not be a good candidate for anticoagulation. (3) Type 2 diabetes mellitus: Current visit: No Status: Chronic Previously was on basal insulin, held last hospitalization in setting of hypoglycemia and decreased oral intake. Patient's blood sugars had remained in the 80-100's even when eating. Continue with sliding scale coverage and monitor blood sugars. Currently NPO but initiating Tube Feeds. (4) Hypothyroidism: Current visit: No Status: Chronic Continue replacement therapy. (5) Hypertension: Current visit: No Status: Chronic Continue BB therapy. Qualifiers: Hypertension type: essential hypertension Qualified Code(s): I10 - Essential (primary) hypertension (6) Schizophrenia: Current visit: Yes Status: Chronic Noted - appears stable. 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 Patient's Valbenazine restarted. (8) DVT prophylaxis: Current visit: Yes Status: Chronic SC Lovenox. Also on PPI therapy for GI Prophylaxis. (9) Advance directive discussed with patient: Current visit: No Status: Chronic DNR/DNI. Subjective Interval history since last seen: 72 year old woman with a prior history of Schizophrenia, Bipolar Disorder, and Tardive Dyskinesia, admitted from [facility] Emergency Department on 06/25 with a diagnosis of Failure to Thrive. Ms. Adames a prior history of Bipolar disorder, Schizophrenia, Tardive Dyskinesia, and prior episodes of psychosis. Her other diagnosis include Hypothyroidism, HTN, dyslipidemia, DM, GERD, and ARMAND intolerant of CPAP. She also has a history of ambulatory dysfunction and dysphagia. The patient was just hospitalized here from 06/09-06/14 for treatment of Pneumonia and dysphagia. She also had a new onset of Atrial Flutter during that hospitalization, and a work- up for a presumed facial droop was negative, including MRI/MRA of the brain, Carotid Ultrasound, and an ECHO. Following treatment she was discharged in vastly improved condition, able to tolerate a modified diet and ambulating well with the assistance of a walker with Physical Therapy. She was discharged home to the care of her sister, with Home Health that included Visiting Nursing. She however became progressively weak and unable to tolerate oral feedings or medications, and was brought back for reevaluation. Work-up in the ED included essentially unremarkable labs, Urinalysis, CT of the head, and XRay of the chest. She was referred for admission for further evaluation and treatment. Ms. Adames appears improved with hydration from her original presentation, and appears at or close to her baseline. She is verbal and appropriate, but remains NPO as per evaluation by speech. Different options for her care were discussed in detail, and she chose to undergo PEG tube placement for feeding tube - underwent successful PEG Tube placement 06/29. No overnight events reported. Remains afebrile. Exam Narrative Exam Narrative: General: Patient appears comfortable, pleasant, awake and alert, NAD. Appears tremulous with b/l UE tremors, lip smacking, and abnormal tongue movements. Neck: Supple CV: Regular, nontachycardic, S1S2, No rubs, murmurs, or gallops. Pulmonary: Mild bibasilar crackles no rhonchi or wheezing on exam. Abdomen: + Bowel Sounds, soft, nontender, nondistended Vascular: No lower extremity edema Psych: Normal mood and affect. Objective Objective Clinical Data: Abnormal lab results 06/30/18 06/30/18 Range/Units 06:35 06:35 MPV 11.3 H (8.0-11.0) fL Absolute Monocytes 1.11 H (0.11-0.7) k/cumm BUN 6 L (7-18) mg/dL Glucose 159 H (70-100) mg/dL Magnesium 1.5 L (1.8-2.4) mg/dL Vital Signs Temperature 36.9 C 06/30/18 11:20 Temperature Source Tympanic 06/30/18 11:20 Pulse 106 H 06/30/18 11:20 Pulse Rhythm Regular 06/30/18 08:15 Pulse 89 06/25/18 19:01 Respiratory Rate 16 06/30/18 11:20 Respiratory Effort Non-Labored 06/30/18 08:15 Respiratory Depth Normal 06/30/18 08:15 Respiratory Pattern Normal 06/30/18 08:15 Blood Pressure 120/63 06/30/18 11:20 Blood Pressure Mean 88 06/25/18 19:01 Pulse Oximetry 94 L 06/30/18 11:20 Respiratory End-tidal CO2 17 06/29/18 13:28 Oxygen Delivery Method Room Air 06/30/18 11:20 Oxygen Flow Rate 0 06/30/18 11:20 Pain Level 6 06/30/18 15:01 Comment 06/29/18 15:10 Intake & Output 06/29/18 06/30/18 06/30/18 23:59 11:59 23:59 Intake Total 1600.00 / 2597.50 1598.333 / 1736.666 138.333 / 1736.666 Output Total 500 / 850 600 / 600 Balance 1100.00 / 1747.50 998.333 / 1136.666 138.333 / 1136.666 Weight 87.1 kg Intake: IV 1600.00 / 2597.50 1598.333 / 1736.666 138.333 / 1736.666 Oral 0 / 0 Output: Urine 500 / 850 600 / 600 Other: Urine Color Yellow Yellow Urine Appearance Clear Clear Urine Odor Normal None Comment Void x1 in the bedside commode. Briefs were changed. Emesis Description None Voiding Methods Bedside Commode Bedside Commode Laboratory Results WBC 6.86 k/cumm (4.4-10.8) D 06/30/18 06:35 RBC 4.38 m/cumm (4.00-5.20) 06/30/18 06:35 Hgb 13.4 g/dL (12.0-15.5) 06/30/18 06:35 Hct 40.5 % (36.0-46.0) 06/30/18 06:35 MCV 92.5 fL (80-95) 06/30/18 06:35 MCH 30.6 pg (27.0-33.0) 06/30/18 06:35 MCHC 33.1 g/dL (32.0-36.0) 06/30/18 06:35 RDW 13.4 % (11.7-14.6) 06/30/18 06:35 Plt Count 173 x1000/uL (130-400) 06/30/18 06:35 MPV 11.3 fL (8.0-11.0) H 06/30/18 06:35 Immature Gran % 0.1 06/30/18 06:35 Neutrophils % 53.0 06/30/18 06:35 Lymphocytes % 29.7 06/30/18 06:35 Monocytes % 16.2 06/30/18 06:35 Eosinophils % 0.7 06/30/18 06:35 Basophils % 0.3 06/30/18 06:35 Absolute Neutrophils 3.64 k/cumm (1.2-6.7) 06/30/18 06:35 Absolute Lymphocytes 2.04 k/cumm (1.2-3.4) 06/30/18 06:35 Absolute Monocytes 1.11 k/cumm (0.11-0.7) H 06/30/18 06:35 Absolute Eosinophils 0.05 k/cumm (0.0-0.7) 06/30/18 06:35 Absolute Basophils 0.02 k/cumm (0.0-0.2) 06/30/18 06:35 Differential Comment Agrees w/ instrument 06/29/18 06:45 RBC Morphology Normal 06/29/18 06:45 Sodium 140 mmol/L (136-145) 06/30/18 06:35 Potassium 3.7 mmol/L (3.5-5.1) 06/30/18 06:35 Chloride 103 mmol/L (98-107) 06/30/18 06:35 Carbon Dioxide 29.2 mmol/L (21.0-32.0) 06/30/18 06:35 Anion Gap 7.8 mmol/L (3-11) 06/30/18 06:35 BUN 6 mg/dL (7-18) L 06/30/18 06:35 Creatinine 0.76 mg/dL (0.55-1.02) 06/30/18 06:35 Estimated GFR/1.73 m2 >= 60.00 (mL/min/1.73m2) 06/30/18 06:35 Glucose 159 mg/dL (70-100) H 06/30/18 06:35 Calcium 8.8 mg/dL (8.5-10.1) 06/30/18 06:35 Magnesium 1.5 mg/dL (1.8-2.4) L 06/30/18 06:35 Total Bilirubin 0.5 mg/dL (0.2-1.0) 06/25/18 18:15 AST 28 U/L (15-37) 06/25/18 18:15 ALT 24 U/L (12-78) 06/25/18 18:15 Alkaline Phosphatase 72 U/L (46-116) 06/25/18 18:15 Troponin I < 0.02 ng/mL (0.00-0.06) 06/26/18 08:22 Total Protein 6.5 g/dL (6.4-8.2) 06/25/18 18:15 Albumin 3.0 g/dL (3.4-5.0) L 06/25/18 18:15
[2018-06-30] MEDS: Furosemide 20 MG/2 ML VIAL IVP (16:01)
[2018-06-30] MEDS: Propranolol 20 MG TAB NG (20:58)
[2018-06-30] MEDS: clonazePAM 0.5 MG TAB UD (20:58)
[2018-06-30] MEDS: Simvastatin 20 MG TAB UD (20:58)
[2018-06-30] MEDS: Patient's Own Medication 1 EACH MISC PEG (21:04)
[2018-07-01] VITALS (8 sets, daily range): BP systolic 106–123; BP diastolic 54–77; PULSE 84–110; RESP 18–22; TEMP 37–38; O2SAT 90–97
[2018-07-01] MEDS: CLINDAMYCIN 600 MG/50 ML BAG 100 MG IVPB ×3 (03:34→19:10)
[2018-07-01] MEDS: Normal Saline Flush 10 ML SYR IVP ×6 (03:35→18:21)
[2018-07-01] MEDS: clonazePAM 0.5 MG TAB 0.25 MG UD (06:24)
[2018-07-01] MEDS: Insulin Aspart 300 UNITS/3 ML PEN SC ×4 (06:25→23:59)
[2018-07-01] MEDS: Levothyroxine 112 MCG TAB UD (06:25)
[2018-07-01 07:34] LABS: Abs Immature Grans 0.02 k/cumm (0.0-0.09); Absolute Basophil Count 0.01 k/cumm (0.0-0.2); Absolute Eosinophil Count 0.04 k/cumm (0.0-0.7); Absolute Lymphocyte Count 1.66 k/cumm (1.2-3.4); Absolute Monocyte Count 1.15 k/cumm (0.11-0.7); Basophils % 0.1; Eosinophils % 0.4; HCT 40.7 % (36.0-46.0); HGB 13.3 g/dL (12.0-15.5); Immature Grans % 0.2; Lymphocytes % 16.6; Mean Corp. HGB Concentration 32.7 g/dL (32.0-36.0); Mean Corpuscular Hemoglobin 30.5 pg (27.0-33.0); Mean Corpuscular Volume 93.3 fL (80-95); Mean Platelet Volume 11.1 fL (8.0-11.0); Monocytes % 11.5; Neutrophils % 71.2; Platelet Count 186 x1000/uL (130-400); RBC 4.36 m/cumm (4.00-5.20); RBC Distribution Width 13.4 % (11.7-14.6); White Blood Cell Count 9.98 k/cumm (4.4-10.8)
[2018-07-01 07:35] LABS: Absolute Neutrophil Count 7.11 k/cumm (1.2-6.7)
[2018-07-01 07:47] LABS: Anion Gap 8.2 mmol/L (3-11); BUN 11 mg/dL (7-18); CO2 29.8 mmol/L (21.0-32.0); CREATININE 0.81 mg/dL (0.55-1.02); Calcium 9.1 mg/dL (8.5-10.1); Chloride 100 mmol/L (98-107); Glucose 171 mg/dL (70-100); Magnesium 1.6 mg/dL (1.8-2.4); Potassium 3.8 mmol/L (3.5-5.1); Sodium 138 mmol/L (136-145)
--- NOTE | 2018-07-01 08:01 | PDOC.CMPRO ---
- If Service Date Differs Date of service: 07/01/18 Time of Service: 08:01 Care Management Progress Note S/O: Philomena was sleeping during both CM visits. Her tube feedings started yesterday but needed to be stopped during the night for high residuals. They have been restarted at 45cc/hr this morning. Nutrition services will work with nursing to get her on a bolus schedule over the weekend in preparation for transfer to [facility] on Wednesday.There was also discussion about changing the tube feed from Glucerna to Jevity since the SNF does not carry Glucerna. A:Philomena is a 72 year old female admitted with a diagnosis of failure to thrive. She was recently hospitalized for aspiration pneumonia and dysphagia. P:Philomena had a PEG tube placed yesterday. At discharge Philomena is requesting skilled care in a rehabilitation facility. Referral was sent to [facility] by CM and the case was discussed with the test kitchen home economist. A bed will be available on Wednesday. CM will continue to support the patient, family, care team and discharge planning.
[2018-07-01] MEDS: Triamcinolone 0.1% CR 15 GM TUBE TP (08:38)
[2018-07-01] MEDS: Aspirin 81 MG CHEW UD (08:51)
[2018-07-01] MEDS: Multivitamin TAB 1 TAB UD (08:51)
[2018-07-01] MEDS: Acetaminophen 650 MG SUPP PR (08:51)
[2018-07-01] MEDS: Pantoprazole 40 MG VIAL IVP (08:51)
[2018-07-01] MEDS: Propranolol 20 MG TAB NG ×3 (08:51→19:10)
[2018-07-01] MEDS: Escitalopram 10 MG TAB 30 MG UD (08:51)
[2018-07-01] MEDS: Enoxaparin 40 MG/0.4 ML SYR SC (08:52)
--- NOTE | 2018-07-01 09:14 | PT.INTREAT ---
Date of service: 07/01/18 Time of Service: 09:14 PT Notes Inpatient Physical Therapy Treatment Note [facility] Date: 07/01/18 PRECAUTIONS: Fall, PEG tube SUBJECTIVE: Philomena is agreeable to participating in PT. She reports that she is feeling a little better today after getting washed up. OBJECTIVE: PAIN: No c/o pain BED MOBILITY/TRANSFERS Sit-stand: Min A Stand-sit: CGA with cueing for safety GAIT Assistive Device: FWW Weight bearing: Full Assist: CGA Distance: 40' Deviation: Cueing for movement initiation THEREX: Patient completed several LE and UE exercises, in a seated position, as per flow sheet. ASSESSMENT: Patient tolerated session without complaint. She continues to require cueing with [id number] transfers for safety. She would benefit from continued transfer and gait training, as well as global strengthening for improved activity tolerance and mobility. PLAN: Continue with PT's POC TREATMENT CODE/TIME: 25 minutes; 47279, [id number]
[2018-07-01] MEDS: MAGNESIUM SULFATE 2 GM/50 ML BAG IVPB (09:17)
[2018-07-01] MEDS: Potassium Chloride Liquid 20 MEQ PKT NG (09:17)
--- NOTE | 2018-07-01 09:17 | PTTR_ITS ---
Date of service: 07/01/18 Time of Service: 09:14 PT Notes Inpatient Physical Therapy Treatment Note [facility] Date: 07/01/18 PRECAUTIONS: Fall, PEG tube SUBJECTIVE: Philomena is agreeable to participating in PT. She reports that she is feeling a little better today after getting washed up. OBJECTIVE: PAIN: No c/o pain BED MOBILITY/TRANSFERS Sit-stand: Min A Stand-sit: CGA with cueing for safety GAIT Assistive Device: FWW Weight bearing: Full Assist: CGA Distance: 40' Deviation: Cueing for movement initiation THEREX: Patient completed several LE and UE exercises, in a seated position, as per flow sheet. ASSESSMENT: Patient tolerated session without complaint. She continues to require cueing with [id number] transfers for safety. She would benefit from continued transfer and gait training, as well as global strengthening for improved activity tolerance and mobility. PLAN: Continue with PT's POC TREATMENT CODE/TIME: 25 minutes; 42073, [id number]
--- NOTE | 2018-07-01 12:19 | W.PM.PROGNOT ---
Date of Service Date of service: 07/01/18 Time of Service: 12:19 Assessment and Plan (1) Dysphagia, unspecified: Current visit: No Status: Chronic Patient appears to have Failure to Thrive at home - appeared dehydrated and unable to tolerate oral intake. She improved with IV Hydration from a mental status standpoint, but with failed swallow eval. COLST Form reviewed on initial day after admission with noted 'no feeding tube'. Mrs. Adames had indicated that she wanted 'everything done' initially when discussing her condition, then discussed not pursuing a feeding tube the following day. There was then an in-depth discussion of care with patient and her sister who acts as her caregiver, and they were given time to discuss this. Ms. Adames eventually decided on pursuing a Feeding Tube. Surgery was consulted, and procedure was performed on 06/29. Unfortunately the patient's Palliative care provider was not available for consultation during this period. Currently supplying home meds via Tube, tube feeds and free water initiated yesterday afternoon. Plan is for titration of tube feeds to 3-4 boluses daily, then placement into a chcf per patient's wishes. Nutrition consult in place. Of note, appears mildly volume overloaded on prior IVFs - for one dose of IV lasix today. Qualifiers: Dysphagia type: unspecified Qualified Code(s): R13.10 - Dysphagia, unspecified (2) Atrial flutter: Current visit: Yes Status: Chronic New diagnosis last hospitalization, with patient in NSR. ECHO obtained last visit and essentially unremarkable. Already on BB - change to PO short-acting formulation for ease of administration through feeding tube. Discussed risks of anticoagulation previously given patient's history of Tardive Dyskinesia, Ambulatory Dysfunction, and multiple prior falls. Will continue to hold off anticoagulation - ultimately may not be a good candidate for anticoagulation. (3) Type 2 diabetes mellitus: Current visit: No Status: Chronic Previously on basal insulin, held last hospitalization in setting of hypoglycemia and decreased oral intake. Patient's blood sugars had remained in the 80-100's even when eating. Continue with sliding scale coverage and monitor blood sugars. Currently NPO but initiating Tube Feeds. Blood Sugars have increased and are now in the 150-200 range. Continue to monitor, and reinitiate basal insulin if warranted. (4) Hypothyroidism: Current visit: No Status: Chronic Continue replacement therapy. (5) Hypertension: Current visit: No Status: Chronic Continue BB therapy. Qualifiers: Hypertension type: essential hypertension Qualified Code(s): I10 - Essential (primary) hypertension (6) Schizophrenia: Current visit: Yes Status: Chronic Noted - appears stable. 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 Patient's Valbenazine restarted. (8) DVT prophylaxis: Current visit: Yes Status: Chronic SC Lovenox. Also on PPI therapy for GI Prophylaxis. (9) Advance directive discussed with patient: Current visit: No Status: Chronic DNR/DNI. Subjective Interval history since last seen: 72 year old woman with a prior history of Schizophrenia, Bipolar Disorder, and Tardive Dyskinesia, admitted from [facility] Emergency Department on 06/25 with a diagnosis of Failure to Thrive. Ms. Adames a prior history of Bipolar disorder, Schizophrenia, Tardive Dyskinesia, and prior episodes of psychosis. Her other diagnosis include Hypothyroidism, HTN, dyslipidemia, DM, GERD, and ARMAND intolerant of CPAP. She also has a history of ambulatory dysfunction and dysphagia. The patient was just hospitalized here from 06/09-06/14 for treatment of Pneumonia and dysphagia. She also had a new onset of Atrial Flutter during that hospitalization, and a work-up for a presumed facial droop was negative, including MRI/MRA of the brain, Carotid Ultrasound, and an ECHO. Following treatment she was discharged in vastly improved condition, able to tolerate a modified diet and ambulating well with the assistance of a walker with Physical Therapy. She was discharged home to the care of her sister, with Home Health that included Visiting Nursing. She however became progressively weak and unable to tolerate oral feedings or medications, and was brought back for reevaluation. Work-up in the ED included essentially unremarkable labs, Urinalysis, CT of the head, and XRay of the chest. She was referred for admission for further evaluation and treatment. Ms. Adames appears to be improved from her original presentation, and appears at or close to her baseline. She is verbal and appropriate, remains NPO, but now receiving Tube Feeds after successful PEG Tube placement 06/29. No overnight events reported. Remains afebrile. Exam Narrative Exam Narrative: General: Patient appears comfortable, pleasant, awake and alert, NAD. Appears tremulous with b/l UE tremors, lip smacking, and abnormal tongue movements. Neck: Supple CV: Regular, nontachycardic, S1S2, No rubs, murmurs, or gallops. Pulmonary: Continued mild bibasilar crackles, no rhonchi or wheezing on exam. Abdomen: + Bowel Sounds, soft, nontender, nondistended Vascular: No lower extremity edema Psych: Normal mood and affect. Objective Objective Clinical Data: Abnormal lab results 07/01/18 07/01/18 Range/Units 07:06 07:06 MPV 11.1 H (8.0-11.0) fL Absolute Neutrophils 7.11 H (1.2-6.7) k/cumm Absolute Monocytes 1.15 H (0.11-0.7) k/cumm Glucose 171 H (70-100) mg/dL Magnesium 1.6 L (1.8-2.4) mg/dL Vital Signs Temperature 37.7 C H 07/01/18 07:30 Temperature Source Tympanic 07/01/18 07:30 Pulse 96 H 07/01/18 07:30 Pulse Rhythm Regular 07/01/18 00:17 Pulse 89 06/25/18 19:01 Respiratory Rate 20 07/01/18 07:30 Respiratory Effort Non-Labored 07/01/18 00:17 Respiratory Depth Normal 07/01/18 00:17 Respiratory Pattern Normal 07/01/18 00:17 Blood Pressure 123/77 07/01/18 07:30 Blood Pressure Mean 88 06/25/18 19:01 Pulse Oximetry 96 07/01/18 07:30 Respiratory End-tidal CO2 17 06/29/18 13:28 Oxygen Delivery Method Nasal Cannula 07/01/18 07:30 Oxygen Flow Rate 2 07/01/18 07:30 Pain Level 4 07/01/18 08:51 Comment 06/29/18 15:10 Intake & Output 06/30/18 07/01/18 07/01/18 23:59 11:59 23:59 Intake Total 548.333 / 2166.666 240 / 240 Output Total 1241994 1950 / 1950 Balance -696.667 / 171.666 -1710 / -1710 Weight 87.6 kg Intake: IV 548.333 / 2166.666 60 / 60 Intake, Tube Feeding Amount 180 / 180 Output: Urine 900 / 1650 400 / 400 Output, Residual 345 / 345 1550 / 1550 Other: Urine Color Yellow Dark Natty Urine Appearance Clear Clear Urine Odor Normal Comment Void x1 in the bedside commode. Briefs were changed. Voiding Methods Bedside Commode Bedside Commode Laboratory Results WBC 9.98 k/cumm (4.4-10.8) D 07/01/18 07:06 RBC 4.36 m/cumm (4.00-5.20) 07/01/18 07:06 Hgb 13.3 g/dL (12.0-15.5) 07/01/18 07:06 Hct 40.7 % (36.0-46.0) 07/01/18 07:06 MCV 93.3 fL (80-95) 07/01/18 07:06 MCH 30.5 pg (27.0-33.0) 07/01/18 07:06 MCHC 32.7 g/dL (32.0-36.0) 07/01/18 07:06 RDW 13.4 % (11.7-14.6) 07/01/18 07:06 Plt Count 186 x1000/uL (130-400) 07/01/18 07:06 MPV 11.1 fL (8.0-11.0) H 07/01/18 07:06 Immature Gran % 0.2 07/01/18 07:06 Neutrophils % 71.2 07/01/18 07:06 Lymphocytes % 16.6 07/01/18 07:06 Monocytes % 11.5 07/01/18 07:06 Eosinophils % 0.4 07/01/18 07:06 Basophils % 0.1 07/01/18 07:06 Absolute Neutrophils 7.11 k/cumm (1.2-6.7) H 07/01/18 07:06 Absolute Lymphocytes 1.66 k/cumm (1.2-3.4) 07/01/18 07:06 Absolute Monocytes 1.15 k/cumm (0.11-0.7) H 07/01/18 07:06 Absolute Eosinophils 0.04 k/cumm (0.0-0.7) 07/01/18 07:06 Absolute Basophils 0.01 k/cumm (0.0-0.2) 07/01/18 07:06 Differential Comment Agrees w/ instrument 06/29/18 06:45 RBC Morphology Normal 06/29/18 06:45 Sodium 138 mmol/L (136-145) 07/01/18 07:06 Potassium 3.8 mmol/L (3.5-5.1) 07/01/18 07:06 Chloride 100 mmol/L (98-107) 07/01/18 07:06 Carbon Dioxide 29.8 mmol/L (21.0-32.0) 07/01/18 07:06 Anion Gap 8.2 mmol/L (3-11) 07/01/18 07:06 BUN 11 mg/dL (7-18) 07/01/18 07:06 Creatinine 0.81 mg/dL (0.55-1.02) 07/01/18 07:06 Estimated GFR/1.73 m2 >= 60.00 (mL/min/1.73m2) 07/01/18 07:06 Glucose 171 mg/dL (70-100) H 07/01/18 07:06 Calcium 9.1 mg/dL (8.5-10.1) 07/01/18 07:06 Magnesium 1.6 mg/dL (1.8-2.4) L 07/01/18 07:06 Total Bilirubin 0.5 mg/dL (0.2-1.0) 06/25/18 18:15 AST 28 U/L (15-37) 06/25/18 18:15 ALT 24 U/L (12-78) 06/25/18 18:15 Alkaline Phosphatase 72 U/L (46-116) 06/25/18 18:15 Troponin I < 0.02 ng/mL (0.00-0.06) 06/26/18 08:22 Total Protein 6.5 g/dL (6.4-8.2) 06/25/18 18:15 Albumin 3.0 g/dL (3.4-5.0) L 06/25/18 18:15
--- NOTE | 2018-07-01 12:25 | PGE_ITS ---
Date of Service Date of service: 07/01/18 Time of Service: 12:19 Assessment and Plan (1) Dysphagia, unspecified: Current visit: No Status: Chronic Patient appears to have Failure to Thrive at home - appeared dehydrated and unable to tolerate oral intake. She improved with IV Hydration from a mental status standpoint, but with failed swallow eval. COLST Form reviewed on initial day after admission with noted 'no feeding tube'. Mrs. Adames had indicated that she wanted 'everything done' initially when discussing her condition, then discussed not pursuing a feeding tube the follow ing day. There was then an in-depth discussion of care with patient and her sister who acts as her caregiver, and they were given time to discuss this. Ms. Adames eventually decided on pursuing a Feeding Tube. Surgery was consulted, and procedure was performed on 06/29. Unfortunately the patient's Palliative care provider was not available for consultation during this period. Currently supplying home meds via Tube, tube feeds and free water initiated yesterday afternoon. Plan is for titration of tube feeds to 3-4 boluses daily, then placement into a mcfp per patient's wishes. Nutrition consult in place. Of note, appears mildly volume overloaded on prior IVFs - for one dose of IV lasix today. Qualifiers: Dysphagia type: unspecified Qualified Code(s): R13.10 - Dysphagia, unspecified (2) Atrial flutter: Current visit: Yes Status: Chronic New diagnosis last hospitalization, with patient in NSR. ECHO obtained last visit and essentially unremarkable. Already on BB - change to PO short- acting formulation for ease of administration through feeding tube. Discussed risks of anticoagulation previously given patient's history of Tardive Dyski nesia, Ambulatory Dysfunction, and multiple prior falls. Will continue to hold off anticoagulation - ultimately may not be a good candidate for anticoagulation. (3) Type 2 diabetes mellitus: Current visit: No Status: Chronic Previously on basal insulin, held last hospitalization in setting of hypoglycemia and decreased oral intake. Patient's blood sugars had remained in the 80-100's even when eating. Continue with sliding scale coverage and monitor blood sugars. Currently NPO but initiating Tube Feeds. Blood Sugars have increased and are now in the 150-200 range. Continue to monitor, and reinitiate basal insulin if warranted. (4) Hypothyroidism: Current visit: No Status: Chronic Continue replacement therapy. (5) Hypertension: Current visit: No Status: Chronic Continue BB therapy. Qualifiers: Hypertension type: essential hypertension Qualified Code(s): I10 - Essential (primary) hypertension (6) Schizophrenia: Current visit: Yes Status: Chronic Noted - appears stable. 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 Patient's Valbenazine restarted. (8) DVT prophylaxis: Current visit: Yes Status: Chronic SC Lovenox. Also on PPI therapy for GI Prophylaxis. (9) Advance directive discussed with patient: Current visit: No Status: Chronic DNR/DNI. Subjective Interval history since last seen: 72 year old woman with a prior history of Schizophrenia, Bipolar Disorder, and Tardive Dyskinesia, admitted from [facility] Emergency Department on 06/25 with a diagnosis of Failure to Thrive. Ms. Adames a prior history of Bipolar disorder, Schizophrenia, Tardive Dyskinesia, and prior episodes of psychosis. Her other diagnosis include Hypothyroidism, HTN, dyslipidemia, DM, GERD, and ARMAND intolerant of CPAP. She also has a history of ambulatory dysfunction and dysphagia. The patient was just hospitalized here from 06/09-06/14 for treatment of Pneumonia and dysphagia. She also had a new onset of Atrial Flutter during that hospitalization, and a work- up for a presumed facial droop was negative, including MRI/MRA of the brain, Carotid Ultrasound, and an ECHO. Following treatment she was discharged in vastly improved condition, able to tolerate a modified diet and ambulating well with the assistance of a walker with Physical Therapy. She was discharged home to the care of her sister, with Home Health that included Visiting Nursing. She however became progressively weak and unable to tolerate oral feedings or medications, and was brought back for reevaluation. Work-up in the ED included essentially unremarkable labs, Urinalysis, CT of the head, and XRay of the chest. She was referred for admission for further evaluation and treatment. Ms. Adames appears to be improved from her original presentation, and appears at or close to her baseline. She is verbal and appropriate, remains NPO, but now receiving Tube Feeds after successful PEG Tube placement 06/29. No overnight events reported. Remains afebrile. Exam Narrative Exam Narrative: General: Patient appears comfortable, pleasant, awake and alert, NAD. Appears tremulous with b/l UE tremors, lip smacking, and abnormal tongue movements. Neck: Supple CV: Regular, nontachycardic, S1S2, No rubs, murmurs, or gallops. Pulmonary: Continued mild bibasilar crackles, no rhonchi or wheezing on exam. Abdomen: + Bowel Sounds, soft, nontender, nondistended Vascular: No lower extremity edema Psych: Normal mood and affect. Objective Objective Clinical Data: Abnormal lab results 07/01/18 07/01/18 Range/Units 07:06 07:06 MPV 11.1 H (8.0-11.0) fL Absolute Neutrophils 7.11 H (1.2-6.7) k/cumm Absolute Monocytes 1.15 H (0.11-0.7) k/cumm Glucose 171 H (70-100) mg/dL Magnesium 1.6 L (1.8-2.4) mg/dL Vital Signs Temperature 37.7 C H 07/01/18 07:30 Temperature Source Tympanic 07/01/18 07:30 Pulse 96 H 07/01/18 07:30 Pulse Rhythm Regular 07/01/18 00:17 Pulse 89 06/25/18 19:01 Respiratory Rate 20 07/01/18 07:30 Respiratory Effort Non-Labored 07/01/18 00:17 Respiratory Depth Normal 07/01/18 00:17 Respiratory Pattern Normal 07/01/18 00:17 Blood Pressure 123/77 07/01/18 07:30 Blood Pressure Mean 88 06/25/18 19:01 Pulse Oximetry 96 07/01/18 07:30 Respiratory End-tidal CO2 17 06/29/18 13:28 Oxygen Delivery Method Nasal Cannula 07/01/18 07:30 Oxygen Flow Rate 2 07/01/18 07:30 Pain Level 4 07/01/18 08:51 Comment 06/29/18 15:10 Intake & Output 06/30/18 07/01/18 07/01/18 23:59 11:59 23:59 Intake Total 548.333 / 2166.666 240 / 240 Output Total 1245 1994 1950 / 1950 Balance -696.667 / 171.666 -1710 / -1710 Weight 87.6 kg Intake: IV 548.333 / 2166.666 60 / 60 Intake, Tube Feeding Amount 180 / 180 Output: Urine 900 / 1650 400 / 400 Output, Residual 345 / 345 1550 / 1550 Other: Urine Color Yellow Dark Natty Urine Appearance Clear Clear Urine Odor Normal Comment Void x1 in the bedside commode. Briefs were changed. Voiding Methods Bedside Commode Bedside Commode Laboratory Results WBC 9.98 k/cumm (4.4-10.8) D 07/01/18 07:06 RBC 4.36 m/cumm (4.00-5.20) 07/01/18 07:06 Hgb 13.3 g/dL (12.0-15.5) 07/01/18 07:06 Hct 40.7 % (36.0-46.0) 07/01/18 07:06 MCV 93.3 fL (80-95) 07/01/18 07:06 MCH 30.5 pg (27.0-33.0) 07/01/18 07:06 MCHC 32.7 g/dL (32.0-36.0) 07/01/18 07:06 RDW 13.4 % (11.7-14.6) 07/01/18 07:06 Plt Count 186 x1000/uL (130-400) 07/01/18 07:06 MPV 11.1 fL (8.0-11.0) H 07/01/18 07:06 Immature Gran % 0.2 07/01/18 07:06 Neutrophils % 71.2 07/01/18 07:06 Lymphocytes % 16.6 07/01/18 07:06 Monocytes % 11.5 07/01/18 07:06 Eosinophils % 0.4 07/01/18 07:06 Basophils % 0.1 07/01/18 07:06 Absolute Neutrophils 7.11 k/cumm (1.2-6.7) H 07/01/18 07:06 Absolute Lymphocytes 1.66 k/cumm (1.2-3.4) 07/01/18 07:06 Absolute Monocytes 1.15 k/cumm (0.11-0.7) H 07/01/18 07:06 Absolute Eosinophils 0.04 k/cumm (0.0-0.7) 07/01/18 07:06 Absolute Basophils 0.01 k/cumm (0.0-0.2) 07/01/18 07:06 Differential Comment Agrees w/ instrument 06/29/18 06:45 RBC Morphology Normal 06/29/18 06:45 Sodium 138 mmol/L (136-145) 07/01/18 07:06 Potassium 3.8 mmol/L (3.5-5.1) 07/01/18 07:06 Chloride 100 mmol/L (98-107) 07/01/18 07:06 Carbon Dioxide 29.8 mmol/L (21.0-32.0) 07/01/18 07:06 Anion Gap 8.2 mmol/L (3-11) 07/01/18 07:06 BUN 11 mg/dL (7-18) 07/01/18 07:06 Creatinine 0.81 mg/dL (0.55-1.02) 07/01/18 07:06 Estimated GFR/1.73 m2 >= 60.00 (mL/min/1.73m2) 07/01/18 07:06 Glucose 171 mg/dL (70-100) H 07/01/18 07:06 Calcium 9.1 mg/dL (8.5-10.1) 07/01/18 07:06 Magnesium 1.6 mg/dL (1.8-2.4) L 07/01/18 07:06 Total Bilirubin 0.5 mg/dL (0.2-1.0) 06/25/18 18:15 AST 28 U/L (15-37) 06/25/18 18:15 ALT 24 U/L (12-78) 06/25/18 18:15 Alkaline Phosphatase 72 U/L (46-116) 06/25/18 18:15 Troponin I < 0.02 ng/mL (0.00-0.06) 06/26/18 08:22 Total Protein 6.5 g/dL (6.4-8.2) 06/25/18 18:15 Albumin 3.0 g/dL (3.4-5.0) L 06/25/18 18:15
[2018-07-01] MEDS: Furosemide 20 MG/2 ML VIAL IVP (13:29)
--- NOTE | 2018-07-01 13:58 | W.NUTRFU ---
Date of service: 07/01/18 Time of Service: 13:58 Nutritional Follow up NOTE: Request for recommendations for bolus recommendations as well as changing feeding to Jevity 1.2 gracie. Would recommend the followin can (240 ml) of Jevity 1.2 gracie, six (6) times per day bolus feeds. A possible schedule would be: 0800,1000,1200,1400,1600, and 1800. Would also suggest giving MsVeronica Dominguezas 100 ml of free water pre and post feedings. Will monitor tolerance to bolus feeding schedule. Will monitor weight. Will evaluate nutrition care plan ongoing and adjust as needed. Time Spent in Nutritional Counseling and Treatment: REBECCA
--- NOTE | 2018-07-01 14:24 | PT.INTREAT ---
Date of service: 07/01/18 Time of Service: 02:10 PT Notes Inpatient Physical Therapy Treatment Note [facility] Date: 07/01/18 PRECAUTIONS:Fall, Peg Tube SUBJECTIVE: Nursing states that she was experiencing a lot of discomfort and so they gave her pain medication. They did advise that it would be best to complete bed ther ex only due to the pain medication and pt being somewhat difficult even without pain meds. OBJECTIVE: GAIT THEREX: Pt completed UE and LE ther ex as per flow sheet. Pt was c/o some discomfort in her stomach when completing her LE ther ex. Pt was somewhat difficult to keep awake to complete her there ex due to the pain medication. ASSESSMENT: Pt was having a difficulty afternoon with discomfort and being altered from the pain medication. PLAN: Cont as per PT POC. TREATMENT CODE/TIME: 2:10-2:20 (10) TP
[2018-07-01 15:28] LABS: Vancomycin, Trough < 0.8 ug/mL (10.0-20.0)
--- NOTE | 2018-07-01 16:44 | NUR.NOTE ---
Nursing Note: Expressed concern to Dr. More that patients 1615 residual was still over 375 cc that were refed, expressed concern that if the new order which is 6 240 cc of bolus feedings every 2 hours was started that there was a concern based on todays residual that the patient was likely to aspirate. Dr More agreed with that, but did not feel comfortable giving guidance in this area. Jaylene Munguia the clinic receptionist was contacted Based on information provided to her, she felt that all feeds should be held to 800 tomorrow morning, and at that time new bolus order start. Dr. More agreed that this was a good course of action and so ordered that, patient will be monitored, and hob is better than 30 degrees for aspiration provided
[2018-07-01] MEDS: Patient's Own Medication 1 EACH MISC PEG (18:20)
--- NOTE | 2018-07-01 18:30 | NUR.NOTE ---
Nursing Note: Concern that patient was up to the toilet multiple times with no bm and little void. Patient had 41 cc pvr by bladder scan, she stated she felt like she needed to have bm and last recorded and per patient was the 17. Assess for llq pain 10 over 10 per patient. plus the concern over elevated residuals. Provider called, besides ordered me3ds he also ordered prn ms 2 mg ivp for pain relief, and a KUB. all meds passed and patient put on a stretcher to go to radiology. Will await results
--- NOTE | 2018-07-01 18:41 | DI.RAD_ITS ---
01 July 2018 SUPINE ABDOMEN, 07/01/18 There are no prior comparison exams. A PEG tube is seen projecting in the left upper quadrant. There is gaseous distension of the colon. No small bowel dilatation is seen. There are surgical clips in the right upper quadrant. IMPRESSION: Mild colonic distension. Status PEG tube placement.
--- NOTE | 2018-07-01 19:08 | DI.VRAD_ITS ---
EXAM: XR Abdomen, 1 View EXAM DATE/TIME: 07/01/2018 6:17 PM CLINICAL HISTORY: 72 years old, female; Abdominal pain; Localized; Left lower quadrant (llq); Prior surgery TECHNIQUE: Imaging protocol: Frontal supine view of the abdomen/pelvis. COMPARISON: No relevant prior studies available. FINDINGS: Tubes, catheters and devices: Gastrostomy tube projects in the left upper quadrant. Gastrointestinal tract: There are scattered dilated small and large bowel loops seen throughout the abdomen. Distal rectal air is present. Dilated large bowel loops measure up to 10.5 cm. Intraperitoneal space: No pneumoperitoneum. Organs: Patient status post cholecystectomy. No mass effect or abnormal calcifications. Bones/joints: No acute skeletal abnormality. IMPRESSION: Differential diagnosis includes ileus versus partial bowel obstruction. Consider close followup versus further evaluation with CT if clinically warranted. Dictated and Authenticated by: Gokul Barajas MD. Ordering:RIKA Brooke MD
--- NOTE | 2018-07-01 19:52 | W.PM.PROGNOT ---
Date of Service Date of service: 07/01/18 Time of Service: 19:52 Assessment and Plan (1) Ileus, postoperative: Current visit: Yes Status: Acute Appears to be developing an Ileus after PEG placement. Had difficulty tolerating tube feeds and now getting pain and distention. Will continue on bowel rest and monitor. Consider CT if fever develops or pain becomes constant and more severe. Continue IV fluids. Subjective Patient reports: pain is less; denies no flatus and shortness of breath Interval history since last seen: Called re: LLQ pain. Has been having pain off/on all day but pain worse per report. Mild distention. Nausea, no vomiting. No stool, feels like she might have to go. No fever. Tube feeds held. On my evaluation, she states pain has improved. Still no BM. No longer nauseous. Exam Narrative Exam Narrative: Alert and responsive, though difficult to understand and with constant TD. MMM. Lungs CTAB with normal effort, CV: RRR, no M/G. ABD: +hypoactive BS. Soft, mildly distended. PEG in place, mild left sided tenderness, no guarding or rebound. Objective Objective Clinical Data: Abnormal lab results KUB: Ileus vs. partial SBO, + gas in rectum 07/01/18 07/01/18 07/01/18 Range/Units 07:06 07:06 15:00 MPV 11.1 H (8.0-11.0) fL Absolute Neutrophils 7.11 H (1.2-6.7) k/cumm Absolute Monocytes 1.15 H (0.11-0.7) k/cumm Glucose 171 H (70-100) mg/dL Magnesium 1.6 L (1.8-2.4) mg/dL Vancomycin Trough < 0.8 L (10.0-20.0) ug/mL Vital Signs Temperature 37.6 C H 07/01/18 15:34 Temperature Source Tympanic 07/01/18 15:34 Pulse 84 07/01/18 15:34 Pulse Rhythm Regular 07/01/18 19:42 Pulse 89 06/25/18 19:01 Respiratory Rate 18 07/01/18 15:34 Respiratory Effort Non-Labored 07/01/18 19:42 Respiratory Depth Normal 07/01/18 19:42 Respiratory Pattern Normal 07/01/18 19:42 Blood Pressure 120/72 07/01/18 15:34 Blood Pressure Mean 88 06/25/18 19:01 Pulse Oximetry 92 L 07/01/18 15:34 Respiratory End-tidal CO2 17 06/29/18 13:28 Oxygen Delivery Method Room Air 07/01/18 15:34 Oxygen Flow Rate 0 07/01/18 15:34 Pain Level 10 07/01/18 18:18 Comment 06/29/18 15:10 Intake & Output 06/30/18 07/01/18 07/01/18 23:59 11:59 23:59 Intake Total 548.333 / 2166.666 270 / 360 90 / 360 Output Total 1245 / 1994 2200 / 3725 1525 / 3725 Balance -696.667 / 171.666 -1930 / -3365 -1435 / -3365 Weight 87.6 kg Intake: IV 548.333 / 2166.666 90 / 180 90 / 180 Intake, Tube Feeding Amount 180 / 180 Output: Urine 900 / 1650 650 / 1350 700 / 1350 Output, Residual 345 / 345 1550 / 2375 825 / 2375 Other: Urine Color Yellow Straw Yellow Urine Appearance Clear Clear Clear Urine Odor Normal None None Comment Void x1 in the bedside commode. Briefs were changed. Void x1 in the bedside commode. Voiding Methods Bedside Commode Bedside Commode Bedside Commode Laboratory Results WBC 9.98 k/cumm (4.4-10.8) D 07/01/18 07:06 RBC 4.36 m/cumm (4.00-5.20) 07/01/18 07:06 Hgb 13.3 g/dL (12.0-15.5) 07/01/18 07:06 Hct 40.7 % (36.0-46.0) 07/01/18 07:06 MCV 93.3 fL (80-95) 07/01/18 07:06 MCH 30.5 pg (27.0-33.0) 07/01/18 07:06 MCHC 32.7 g/dL (32.0-36.0) 07/01/18 07:06 RDW 13.4 % (11.7-14.6) 07/01/18 07:06 Plt Count 186 x1000/uL (130-400) 07/01/18 07:06 MPV 11.1 fL (8.0-11.0) H 07/01/18 07:06 Immature Gran % 0.2 07/01/18 07:06 Neutrophils % 71.2 07/01/18 07:06 Lymphocytes % 16.6 07/01/18 07:06 Monocytes % 11.5 07/01/18 07:06 Eosinophils % 0.4 07/01/18 07:06 Basophils % 0.1 07/01/18 07:06 Absolute Neutrophils 7.11 k/cumm (1.2-6.7) H 07/01/18 07:06 Absolute Lymphocytes 1.66 k/cumm (1.2-3.4) 07/01/18 07:06 Absolute Monocytes 1.15 k/cumm (0.11-0.7) H 07/01/18 07:06 Absolute Eosinophils 0.04 k/cumm (0.0-0.7) 07/01/18 07:06 Absolute Basophils 0.01 k/cumm (0.0-0.2) 07/01/18 07:06 Differential Comment Agrees w/ instrument 06/29/18 06:45 RBC Morphology Normal 06/29/18 06:45 Sodium 138 mmol/L (136-145) 07/01/18 07:06 Potassium 3.8 mmol/L (3.5-5.1) 07/01/18 07:06 Chloride 100 mmol/L (98-107) 07/01/18 07:06 Carbon Dioxide 29.8 mmol/L (21.0-32.0) 07/01/18 07:06 Anion Gap 8.2 mmol/L (3-11) 07/01/18 07:06 BUN 11 mg/dL (7-18) 07/01/18 07:06 Creatinine 0.81 mg/dL (0.55-1.02) 07/01/18 07:06 Estimated GFR/1.73 m2 >= 60.00 (mL/min/1.73m2) 07/01/18 07:06 Glucose 171 mg/dL (70-100) H 07/01/18 07:06 Calcium 9.1 mg/dL (8.5-10.1) 07/01/18 07:06 Magnesium 1.6 mg/dL (1.8-2.4) L 07/01/18 07:06 Total Bilirubin 0.5 mg/dL (0.2-1.0) 06/25/18 18:15 AST 28 U/L (15-37) 06/25/18 18:15 ALT 24 U/L (12-78) 06/25/18 18:15 Alkaline Phosphatase 72 U/L (46-116) 06/25/18 18:15 Troponin I < 0.02 ng/mL (0.00-0.06) 06/26/18 08:22 Total Protein 6.5 g/dL (6.4-8.2) 06/25/18 18:15 Albumin 3.0 g/dL (3.4-5.0) L 06/25/18 18:15 Vancomycin Trough < 0.8 ug/mL (10.0-20.0) L 07/01/18 15:00
--- NOTE | 2018-07-01 20:29 | NUR.NOTE ---
Nursing Note: PT vitals taken and documented. CC notified of pt. temp of 38. Will continue to monitor.
--- NOTE | 2018-07-01 20:36 | NUR.NOTE ---
Nursing Note: Dr. Irwin notified of current vitals. Will await further orders.
[2018-07-01] MEDS: Omnipaque 350 MG/ML 100 ML BTL IJ (21:07)
--- NOTE | 2018-07-01 21:13 | DI.CT_ITS ---
SYMPTOM/DIAGNOSIS:FEVER, LLQ PAIN, S/P PEG TUBE 06/29/18 CT ABDOMEN AND PELVIS: Comparison is made with 04 November 2017. Images were performed from the lung bases through the ischial tuberosities after IV and without oral contrast. A PEG tube has been inserted in the left upper quadrant. The bulb is within the stomach. There is surrounding air in the subcutaneous fat as well as within the left lateral rectus muscle. A small amount of free air is also present. There is mild distension of the cecum and ascending colon. There is no bowel wall thickening or pneumatosis. The more distal portions of the colon are within normal limits in diameter. There is no small bowel dilatation. The lungs show minimal dependent changes. The patient is status post cholecystectomy. The spleen, pancreas, kidneys and adrenals are unremarkable. The bladder is unremarkable. The patient is status post hysterectomy. IMPRESSION: Small amount of free air status post PEG tube placement. There is also a small amount of air in the left upper abdominal wall. There is mild nonspecific distension of the cecum.
--- NOTE | 2018-07-01 21:27 | DI.VRAD_ITS ---
EXAM: CT Abdomen and Pelvis With Contrast EXAM DATE/TIME: 07/01/2018 8:41 PM CLINICAL HISTORY: 72 years old, female; Pain and signs and symptoms; Fever; Abdominal pain; Localized; Left lower quadrant (llq); Prior surgery; Surgery date: Post-operative (0-2 days); Surgery type: Peg tube 06/29/18 TECHNIQUE: Imaging protocol: Axial computed tomography images of the abdomen and pelvis with intravenous contrast. Coronal and sagittal reformatted images were created and reviewed. Radiation optimization: All CT scans at this facility use at least one of these dose optimization techniques: automated exposure control; mA and/or kV adjustment per patient size (includes targeted exams where dose is matched to clinical indication); or iterative reconstruction. Contrast material: [id number]; Contrast volume: 100 ml; Contrast route: IV; COMPARISON: CT Abdomen^ROUTINE ABDOMEN PELVIS WITH CONTRAST (Adult) 11/04/2017 12:16 PM FINDINGS: Lungs: There is bilateral lung base atelectasis. ABDOMEN: Liver: Normal. No mass. Gallbladder and bile ducts: Patient status post cholecystectomy. No significant biliary ductal dilation. Pancreas: Normal. No ductal dilation. Spleen: Normal. No splenomegaly. Adrenals: There is a nonspecific 1.8 cm right adrenal nodule. Left adrenal gland is unremarkable. Kidneys and ureters: Normal. No hydronephrosis. Stomach and bowel: There is diffuse gaseous distention of the colon, with the cecum measuring up to 6.2 cm AP by 9.5 cm TR. The small bowel appears predominantly collapsed. No significant bowel wall thickening is noted. Gastrostomy appears in place without discrete complications. Appendix: No evidence of appendicitis. PELVIS: Bladder: Unremarkable as visualized. Reproductive: There has been a hysterectomy. ABDOMEN and PELVIS: Intraperitoneal space: No significant free fluid or fluid collections. Expected post gastrostomy mesenteric stranding and postsurgical pneumoperitoneum. Bones/joints: No acute skeletal pathology. Mild multilevel degenerative changes of the spine, as manifested by multilevel anterior osteophytes and multilevel decrease in intervertebral disc space. 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 Soft tissues: Expected post gastrostomy postsurgical changes including soft tissue stranding and emphysema. Vasculature: The vasculature demonstrates diffuse mild atherosclerotic calcification. Lymph nodes: Normal. No enlarged lymph nodes. IMPRESSION: 1. Main diagnostic consideration would be that of postoperative large bowel ileus. No small bowel obstruction. Followup recommended as clinically warranted. 2. Gastrostomy tube appears in place with expected post surgical changes including adjacent mesenteric and body wall soft tissue swelling and emphysema, as well as post operative pneumoperitoneum. 3. Incidental findings as detailed above. Dictated and Authenticated by: Gokul Barajas MD. Ordering:RIKA Brooke MD
[2018-07-01] MEDS: clonazePAM 0.5 MG TAB UD (21:29)
[2018-07-01] MEDS: Simvastatin 20 MG TAB UD (21:29)
[2018-07-01] MEDS: POTASSIUM CHLORIDE/D5-0.45NACL 1,000 ML 150 MEQ IV (21:48)
[2018-07-02] VITALS (7 sets, daily range): BP systolic 101–157; BP diastolic 64–77; PULSE 72–83; RESP 19–22; TEMP 36–37.9; O2SAT 91–96
[2018-07-02] MEDS: CLINDAMYCIN 600 MG/50 ML BAG 100 MG IVPB ×3 (03:16→20:44)
[2018-07-02] MEDS: Normal Saline Flush 10 ML SYR IVP ×5 (03:57→20:45)
[2018-07-02] MEDS: POTASSIUM CHLORIDE/D5-0.45NACL 1,000 ML 150 MEQ IV ×2 (04:19→11:03)
[2018-07-02] MEDS: Levothyroxine 112 MCG TAB UD (05:24)
[2018-07-02] MEDS: Insulin Aspart 300 UNITS/3 ML PEN SC ×3 (05:24→23:50)
[2018-07-02 07:40] LABS: Abs Immature Grans 0.02 k/cumm (0.0-0.09); Absolute Basophil Count 0.01 k/cumm (0.0-0.2); Absolute Eosinophil Count 0.15 k/cumm (0.0-0.7); Absolute Lymphocyte Count 1.86 k/cumm (1.2-3.4); Absolute Monocyte Count 0.88 k/cumm (0.11-0.7); Absolute Neutrophil Count 5.87 k/cumm (1.2-6.7); Basophils % 0.1; Eosinophils % 1.7; HCT 35.7 % (36.0-46.0); HGB 11.8 g/dL (12.0-15.5); Immature Grans % 0.2; Lymphocytes % 21.2; Mean Corp. HGB Concentration 33.1 g/dL (32.0-36.0); Mean Corpuscular Hemoglobin 30.7 pg (27.0-33.0); Mean Platelet Volume 11.1 fL (8.0-11.0); Neutrophils % 66.8; Platelet Count 168 x1000/uL (130-400); RBC 3.84 m/cumm (4.00-5.20); White Blood Cell Count 8.79 k/cumm (4.4-10.8)
[2018-07-02 07:49] LABS: Anion Gap 7.1 mmol/L (3-11); BUN 11 mg/dL (7-18); CO2 28.9 mmol/L (21.0-32.0); CREATININE 0.77 mg/dL (0.55-1.02); Calcium 8.4 mg/dL (8.5-10.1); Chloride 99 mmol/L (98-107); Glucose 198 mg/dL (70-100); Magnesium 1.6 mg/dL (1.8-2.4); Potassium 4.2 mmol/L (3.5-5.1); Sodium 135 mmol/L (136-145)
--- NOTE | 2018-07-02 08:21 | CMPROGNOTE_ITS ---
- If Service Date Differs Date of service: 07/02/18 Time of Service: 08:20 Care Management Progress Note S/O: Philomena is lying in bed she has family into visit. She had increased abdominal discomfort over night her tube feed are on hold at this time. Surgical consult has been ordered and she currently is on bowel rest. Referrals to SNF pending she is not ready for discharge at this time. Philomena remains on IV antibiotics. Her antipsychotics medication are on hold today due bowel rest. CM will continue to follow. A:Philomena is a 72 year old female admitted with a diagnosis of failure to thrive. She was recently hospitalized for aspiration pneumonia and dysphagia. P:Philomena has a PEG tube for nutrition. At discharge Philomena is requesting skilled care in a rehabilitation facility. Referral was sent to [facility] by CM and the case was discussed with the rubber curer. A bed will be available on Wednesday. CM will continue to support the patient, family, care team and discharge planning.
[2018-07-02] MEDS: Pantoprazole 40 MG VIAL IVP (10:38)
[2018-07-02] MEDS: Triamcinolone 0.1% CR 15 GM TUBE TP (10:38)
[2018-07-02] MEDS: Enoxaparin 40 MG/0.4 ML SYR SC (10:39)
--- NOTE | 2018-07-02 11:43 | W.PM.PROGNOT ---
Date of Service Date of service: 07/02/18 Time of Service: 11:43 Subjective Interval history since last seen: Ms Adames reports suprapubic pain, nausea and headache. She also complains of shortness of breath. She denies dizziness, chest pain. Overnight, she was found to have an ileus. She is off of tube feeding and on IVF. Tmax 38.0 overnight. Nursing expresses concern re aspiration. Exam Narrative Exam Narrative: General: obese female, resting in bed, tremors and lip smacking c/w tardive dyskinesia, A&Ox3 HEENT: EOMI, Dry MM, lip smacking movements Heart: RRR, no m/r/g Lungs: Diminshed breath sounds B GI: abdomen is soft, tender suprapubically; no bowel sounds, mildly distended Extremities: trace edema BLE's, no clubbing/cyanosis; circular areas of hyperpigmentation noted throughout. Objective Objective Clinical Data: Abnormal lab results 07/01/18 07/02/18 07/02/18 Range/Units 15:00 07:17 07:17 RBC 3.84 L (4.00-5.20) m/cumm Hgb 11.8 L (12.0-15.5) g/dL Hct 35.7 L (36.0-46.0) % MPV 11.1 H (8.0-11.0) fL Absolute Monocytes 0.88 H (0.11-0.7) k/cumm Sodium 135 L (136-145) mmol/L Glucose 198 H (70-100) mg/dL Calcium 8.4 L (8.5-10.1) mg/dL Magnesium 1.6 L (1.8-2.4) mg/dL Vancomycin Trough < 0.8 L (10.0-20.0) ug/mL Vital Signs Temperature 37.2 C 07/02/18 10:59 Temperature Source Tympanic 07/02/18 10:59 Pulse 83 07/02/18 10:59 Pulse Rhythm Regular 07/02/18 09:31 Pulse 89 06/25/18 19:01 Respiratory Rate 20 07/02/18 10:59 Respiratory Effort 07/02/18 09:31 Respiratory Depth Normal 07/02/18 09:31 Respiratory Pattern Normal 07/02/18 09:31 Blood Pressure 127/74 07/02/18 10:59 Blood Pressure Mean 88 06/25/18 19:01 Pulse Oximetry 92 L 07/02/18 10:59 Respiratory End-tidal CO2 17 06/29/18 13:28 Oxygen Delivery Method Room Air 07/02/18 10:59 Oxygen Flow Rate 0 07/02/18 10:59 Pain Level 1 07/02/18 08:07 Comment 06/29/18 15:10 Intake & Output 07/01/18 07/01/18 07/02/18 11:59 23:59 11:59 Intake Total 270 / 410 140 / 410 2049 Output Total 2200 / 4400 2200 / 4400 1840 / 1840 Balance -1930 / -3990 -2060 / -3990 210 / 210 Weight 87.6 kg 87.1 kg Intake: IV 90 / 230 140 / 230 2049 Intake, Tube Feeding Amount 180 / 180 Output: Urine 650 / 1775 1125 / 1775 1565 / 1565 Output, Residual 1550 / 2625 1075 / 2625 275 / 275 Other: Urine Color Straw Light Natty Light Natty Urine Appearance Clear Clear Clear Urine Odor None None Normal Comment Void x1 in the bedside commode. Voiding Methods Bedside Commode Bedside Commode Bedside Commode Laboratory Results WBC 8.79 k/cumm (4.4-10.8) 07/02/18 07:17 RBC 3.84 m/cumm (4.00-5.20) L 07/02/18 07:17 Hgb 11.8 g/dL (12.0-15.5) L 07/02/18 07:17 Hct 35.7 % (36.0-46.0) L 07/02/18 07:17 MCV 93.0 fL (80-95) 07/02/18 07:17 MCH 30.7 pg (27.0-33.0) 07/02/18 07:17 MCHC 33.1 g/dL (32.0-36.0) 07/02/18 07:17 RDW 13.0 % (11.7-14.6) 07/02/18 07:17 Plt Count 168 x1000/uL (130-400) 07/02/18 07:17 MPV 11.1 fL (8.0-11.0) H 07/02/18 07:17 Immature Gran % 0.2 07/02/18 07:17 Neutrophils % 66.8 07/02/18 07:17 Lymphocytes % 21.2 07/02/18 07:17 Monocytes % 10.0 07/02/18 07:17 Eosinophils % 1.7 07/02/18 07:17 Basophils % 0.1 07/02/18 07:17 Absolute Neutrophils 5.87 k/cumm (1.2-6.7) 07/02/18 07:17 Absolute Lymphocytes 1.86 k/cumm (1.2-3.4) 07/02/18 07:17 Absolute Monocytes 0.88 k/cumm (0.11-0.7) H 07/02/18 07:17 Absolute Eosinophils 0.15 k/cumm (0.0-0.7) 07/02/18 07:17 Absolute Basophils 0.01 k/cumm (0.0-0.2) 07/02/18 07:17 Differential Comment Agrees w/ instrument 06/29/18 06:45 RBC Morphology Normal 06/29/18 06:45 Sodium 135 mmol/L (136-145) L 07/02/18 07:17 Potassium 4.2 mmol/L (3.5-5.1) 07/02/18 07:17 Chloride 99 mmol/L (98-107) 07/02/18 07:17 Carbon Dioxide 28.9 mmol/L (21.0-32.0) 07/02/18 07:17 Anion Gap 7.1 mmol/L (3-11) 07/02/18 07:17 BUN 11 mg/dL (7-18) 07/02/18 07:17 Creatinine 0.77 mg/dL (0.55-1.02) 07/02/18 07:17 Estimated GFR/1.73 m2 >= 60.00 (mL/min/1.73m2) 07/02/18 07:17 Glucose 198 mg/dL (70-100) H 07/02/18 07:17 Calcium 8.4 mg/dL (8.5-10.1) L 07/02/18 07:17 Magnesium 1.6 mg/dL (1.8-2.4) L 07/02/18 07:17 Total Bilirubin 0.5 mg/dL (0.2-1.0) 06/25/18 18:15 AST 28 U/L (15-37) 06/25/18 18:15 ALT 24 U/L (12-78) 06/25/18 18:15 Alkaline Phosphatase 72 U/L (46-116) 06/25/18 18:15 Troponin I < 0.02 ng/mL (0.00-0.06) 06/26/18 08:22 Total Protein 6.5 g/dL (6.4-8.2) 06/25/18 18:15 Albumin 3.0 g/dL (3.4-5.0) L 06/25/18 18:15 Vancomycin Trough < 0.8 ug/mL (10.0-20.0) L 07/01/18 15:00
--- NOTE | 2018-07-02 12:39 | DI.RAD_ITS ---
SYMPTOM/DIAGNOSIS: RECENT PEG TUBE, FEVER, SUSPICION FOR PNA AP AND LATERAL CHEST: The exam is limited by poor pulmonary inflation. There are bilateral linear areas of atelectasis. There is a small amount of free air seen beneath the diaphragm on the right. No effusions are seen. The heart size is within normal limits. IMPRESSION: Limited exam. There is bilateral linear atelectasis. A small amount of free air is present.
--- NOTE | 2018-07-02 12:39 | DI.RAD_ITS ---
SYMPTOM/DIAGNOSIS: LLQ PAIN FLAT AND DECUBITUS VIEWS OF THE ABDOMEN: A gastrostomy tube is positioned in the left upper quadrant. There is mild diffuse colonic distension. There is no small bowel dilatation. A small amount of free air is seen beneath the right diaphragm on the decubitus view. There are surgical clips in the right upper quadrant. IMPRESSION: Small amount of free air status post PEG tube placement.
--- NOTE | 2018-07-02 13:00 | PT.INTREAT ---
Date of service: 07/02/18 Time of Service: 08:45 PT Notes Inpatient Physical Therapy Treatment Note [facility] Date: 07/02/18 PRECAUTIONS:Fall and PEG tube SUBJECTIVE: Indicated she would like to sit up in chair for a while. OBJECTIVE: BED MOBILITY/TRANSFERS Sit-stand: min assist of 1 Stand-sit: CGA and verbal cueing GAIT Assistive Device: FWW Weight bearing: Full Assist: CGA Distance: 30 ft, with slow pace THEREX: See flow sheet for details. Able to perform AP, LAQs, UE shoulder horizontal abd/adduction, rows and shoudler flexion with guidance needed to stay on task. ASSESSMENT: Tolerated today's PT session well, but seemed a bit confused throughout treatment requiring guidance to care out exercises and to keep moving her feet when walking. PLAN: Continue with current plan of care, with focus on strengthening and increased ambulation for improved ADL function. TREATMENT CODE/TIME: 8:45 to 9:10 (25'), TP x 1 and TA x 1
--- NOTE | 2018-07-02 13:33 | DI.VRAD_ITS ---
EXAM: XR Chest, 2 Views EXAM DATE/TIME: 07/02/2018 11:29 AM CLINICAL HISTORY: 72 years old, female; Signs and symptoms and device placement; Other: Peg tube; Fever TECHNIQUE: Imaging protocol: XR of the chest, 2 views. COMPARISON: SC XR CHEST 1V IN DI DEPT 06/25/2018 5:44 PM FINDINGS: Lungs: Opacities in the left base may represent atelectasis or pneumonia. Linear opacity in the right midlung may represent pleural effusion in minor fissure versus atelectasis. Pleural space: Unremarkable. No pleural effusion. No pneumothorax. Heart/Mediastinum: Cardiomegaly and mild vascular prominence may represent interstitial edema. Bones/joints: Stable IMPRESSION: 1. Cardiomegaly and mild vascular prominence may represent interstitial edema. 2. Opacities in the left base may represent atelectasis or pneumonia. 3. Linear opacity in the right midlung may represent pleural effusion in minor fissure versus atelectasis. Dictated and Authenticated by: Jennifer Linda MD. Ordering:DYLAN Serra MD
--- NOTE | 2018-07-02 13:34 | DI.VRAD_ITS ---
EXAM: XR Abdomen, 2 Views EXAM DATE/TIME: 07/02/2018 11:30 AM CLINICAL HISTORY: 72 years old, female; Signs and symptoms; Other: ? Ileus TECHNIQUE: Imaging protocol: Frontal view of the abdomen/pelvis with upright view of the abdomen. COMPARISON: CR XR ABDOMEN FLAT PLATE 07/01/2018 6:36 PM FINDINGS: Tubes, catheters and devices: Gastrostomy tube terminates in the left upper quadrant of abdomen. Gastrointestinal tract: Multiple loops of dilated bowel may represent obstruction or ileus. Intraperitoneal space: Surgical clips in the right upper quadrant Bones/joints: Degenerative changes in the thoracolumbar spine IMPRESSION: 1. Multiple loops of dilated bowel may represent obstruction or ileus. 2. Gastrostomy tube terminates in the left upper quadrant of abdomen. Dictated and Authenticated by: Jennifer Linda MD. Ordering:DYLAN Serra MD
[2018-07-02] MEDS: MAGNESIUM SULFATE 2 GM/50 ML BAG IVPB (13:42)
--- NOTE | 2018-07-02 15:24 | W.PM.PROGNOT ---
Date of Service Date of service: 07/02/18 Time of Service: 15:24 Assessment and Plan (1) S/P percutaneous endoscopic gastrostomy (PEG) tube placement: Current visit: No Status: Acute POD # 3. PEG tube appears to be in position on my review of CT. It is functional on aspiration/flushing with sterile water with return of bile-tinged fluid and tube feeds. (2) Ileus, postoperative: Current visit: No Status: Acute Post-op ileus. Discussed with Dr. Jewell. Air is seen in the colon with no signs of significant constipation on imaging. We discussed d/c morphine and switch to non-narcotic pain meds. Unfortunately, patient is not able to ambulate well. Would encourage out of bed/up as tolerated. Unfortunately, patient is not a good candidate for Reglan. NPO/bowel rest today. Consider recheck residual in am. Will follow-up. Subjective Interval history since last seen: Asked to see patient by Dr. Jewell for ileus. Patient not tolerating continuous or bolus tube feeds with high residuals. She also apparently had been c/o LLQ pain. Patient denies abdominal pain on questioning at this time. She c/o some pain on the back of her head. AXR/CT abd/pelvis from yesterday and today reviewed. No BM documented since 06/29. WBC WNL. Low grade temp up to 38 last evening. Residuals > 300 last evening, down to 80 this am per nurse. Exam Const General: cooperative and no acute distress Orientation: alert [facility] Head: normocephalic and atraumatic Resp Effort & Inspection: normal respiratory effort and able to speak in complete sentences GI Inspection: non-distended and other Palpation: soft, not firm, no guarding, not rigid and nontender Other: PEG site - dried drainage/tube feeds at site; bile-tinged fluid and residual tube feed noted in tubing; bumper on tubing advanced down to ~ 9 cm akshat; easily aspirated and flushed with sterile water without resistance or pain; site redressed with gauze Objective Objective Clinical Data: Abnormal lab results 07/01/18 07/02/18 07/02/18 Range/Units 15:00 07:17 07:17 RBC 3.84 L (4.00-5.20) m/cumm Hgb 11.8 L (12.0-15.5) g/dL Hct 35.7 L (36.0-46.0) % MPV 11.1 H (8.0-11.0) fL Absolute Monocytes 0.88 H (0.11-0.7) k/cumm Sodium 135 L (136-145) mmol/L Glucose 198 H (70-100) mg/dL Calcium 8.4 L (8.5-10.1) mg/dL Magnesium 1.6 L (1.8-2.4) mg/dL Vancomycin Trough < 0.8 L (10.0-20.0) ug/mL Vital Signs Temperature 37.2 C 07/02/18 10:59 Temperature Source Tympanic 07/02/18 10:59 Pulse 83 07/02/18 10:59 Pulse Rhythm Regular 07/02/18 09:31 Pulse 89 06/25/18 19:01 Respiratory Rate 20 07/02/18 10:59 Respiratory Effort 07/02/18 09:31 Respiratory Depth Normal 07/02/18 09:31 Respiratory Pattern Normal 07/02/18 09:31 Blood Pressure 127/74 07/02/18 10:59 Blood Pressure Mean 88 06/25/18 19:01 Pulse Oximetry 92 L 07/02/18 10:59 Respiratory End-tidal CO2 17 06/29/18 13:28 Oxygen Delivery Method Room Air 07/02/18 10:59 Oxygen Flow Rate 0 07/02/18 10:59 Pain Level 2 07/02/18 13:42 Comment 06/29/18 15:10 Intake & Output 07/01/18 07/02/18 07/02/18 23:59 11:59 23:59 Intake Total 140 / 410 2049 Output Total 2200 / 4400 1840 / 2915 1075 / 2915 Balance -0 / -3990 210 / -865 -1075 / -865 Weight 87.1 kg Intake: IV 140 / 230 2049 Output: Urine 1125 / 1775 1565 / 2640 1075 / 2640 Post Void Residual 0 / 0 Output, Residual 1075 / 2625 275 / 275 Other: Urine Color Light Natty Light Natty Light Natty Urine Appearance Clear Clear Clear Urine Odor None Normal Normal Voiding Methods Bedside Commode Bedside Commode Toilet Laboratory Results WBC 8.79 k/cumm (4.4-10.8) 07/02/18 07:17 RBC 3.84 m/cumm (4.00-5.20) L 07/02/18 07:17 Hgb 11.8 g/dL (12.0-15.5) L 07/02/18 07:17 Hct 35.7 % (36.0-46.0) L 07/02/18 07:17 MCV 93.0 fL (80-95) 07/02/18 07:17 MCH 30.7 pg (27.0-33.0) 07/02/18 07:17 MCHC 33.1 g/dL (32.0-36.0) 07/02/18 07:17 RDW 13.0 % (11.7-14.6) 07/02/18 07:17 Plt Count 168 x1000/uL (130-400) 07/02/18 07:17 MPV 11.1 fL (8.0-11.0) H 07/02/18 07:17 Immature Gran % 0.2 07/02/18 07:17 Neutrophils % 66.8 07/02/18 07:17 Lymphocytes % 21.2 07/02/18 07:17 Monocytes % 10.0 07/02/18 07:17 Eosinophils % 1.7 07/02/18 07:17 Basophils % 0.1 07/02/18 07:17 Absolute Neutrophils 5.87 k/cumm (1.2-6.7) 07/02/18 07:17 Absolute Lymphocytes 1.86 k/cumm (1.2-3.4) 07/02/18 07:17 Absolute Monocytes 0.88 k/cumm (0.11-0.7) H 07/02/18 07:17 Absolute Eosinophils 0.15 k/cumm (0.0-0.7) 07/02/18 07:17 Absolute Basophils 0.01 k/cumm (0.0-0.2) 07/02/18 07:17 Differential Comment Agrees w/ instrument 06/29/18 06:45 RBC Morphology Normal 06/29/18 06:45 Sodium 135 mmol/L (136-145) L 07/02/18 07:17 Potassium 4.2 mmol/L (3.5-5.1) 07/02/18 07:17 Chloride 99 mmol/L (98-107) 07/02/18 07:17 Carbon Dioxide 28.9 mmol/L (21.0-32.0) 07/02/18 07:17 Anion Gap 7.1 mmol/L (3-11) 07/02/18 07:17 BUN 11 mg/dL (7-18) 07/02/18 07:17 Creatinine 0.77 mg/dL (0.55-1.02) 07/02/18 07:17 Estimated GFR/1.73 m2 >= 60.00 (mL/min/1.73m2) 07/02/18 07:17 Glucose 198 mg/dL (70-100) H 07/02/18 07:17 Calcium 8.4 mg/dL (8.5-10.1) L 07/02/18 07:17 Magnesium 1.6 mg/dL (1.8-2.4) L 07/02/18 07:17 Total Bilirubin 0.5 mg/dL (0.2-1.0) 06/25/18 18:15 AST 28 U/L (15-37) 06/25/18 18:15 ALT 24 U/L (12-78) 06/25/18 18:15 Alkaline Phosphatase 72 U/L (46-116) 06/25/18 18:15 Troponin I < 0.02 ng/mL (0.00-0.06) 06/26/18 08:22 Total Protein 6.5 g/dL (6.4-8.2) 06/25/18 18:15 Albumin 3.0 g/dL (3.4-5.0) L 06/25/18 18:15 Vancomycin Trough < 0.8 ug/mL (10.0-20.0) L 07/01/18 15:00 Objective Narrative Objective Narrative: Patient Name: VENKAT NEGRON #: [id number]: MS Ordering Provider: : ADM IN Primary Care Provider: Lucy Oneill M.D., DCDate of Exam: 07/02/18Sex: F : 8Age: 72 Exam(s) EXAM: XR Abdomen, 2 Views EXAM DATE/TIME: 07/02/2018 11:30 AM CLINICAL HISTORY: 72 years old, female; Signs and symptoms; Other: ? Ileus TECHNIQUE: Imaging protocol: Frontal view of the abdomen/pelvis with upright view of the abdomen. COMPARISON: CR XR ABDOMEN FLAT PLATE 07/01/2018 6:36 PM FINDINGS: Tubes, catheters and devices: Gastrostomy tube terminates in the left upper quadrant of abdomen. Gastrointestinal tract: Multiple loops of dilated bowel may represent obstruction or ileus. Intraperitoneal space: Surgical clips in the right upper quadrant Bones/joints: Degenerative changes in the thoracolumbar spine IMPRESSION: 1. Multiple loops of dilated bowel may represent obstruction or ileus. 2. Gastrostomy tube terminates in the left upper quadrant of abdomen. Dictated and Authenticated by: Jennifer Linda MD. Ordering:DYLAN Serra MD Ordered By: CC: Dictated By: Reports vrad 07/02/18 1130 07/02/18 1334 Transcribed By: Sabine Martin This is privileged, confidential information intended only for the provider named. Any use or distribution by any person other than this provider is strictly prohibited. If you receive this report in error, please notify us immediately at [phone] and return the original report to us at the address above. Thank-you.
--- NOTE | 2018-07-02 15:40 | NUR.NOTE ---
Speaking to both Dr. Ortiz and Dr. Jewell regarding the patient. Continue to hold all feeding and medicines by tube, DC morphine , give ketoralac and apap IV for pain. Nursing Note:
[2018-07-02] MEDS: ACETAMINOPHEN 1,000 MG/100 ML BTL 400 MG IVPB ×2 (16:03→23:22)
[2018-07-02] MEDS: metroNIDAZOLE 500 MG/100 ML BAG 100 MG IVPB ×2 (17:00→23:22)
[2018-07-02] MEDS: Ketorolac 15 MG/ML VIAL IM (17:24)
--- NOTE | 2018-07-02 17:53 | NUR.NOTE ---
Nursing Note: patient has new orders for iv abx. house worker contacted to facilitate appropriating them
[2018-07-02] MEDS: AZTREONAM 2,000 MG in Normal Saline 100 ML 200 MG IVPB (17:59)
[2018-07-02] MEDS: VANCOMYCIN 1,250 MG in Normal Saline 250 ML 166.667 MG IV (18:54)
[2018-07-03] VITALS (9 sets, daily range): BP systolic 116–156; BP diastolic 54–77; PULSE 66–81; RESP 16–20; TEMP 36.2–36.7; O2SAT 95–96
[2018-07-03] MEDS: AZTREONAM 2,000 MG in Normal Saline 100 ML 200 MG IVPB ×3 (00:56→16:06)
[2018-07-03] MEDS: VANCOMYCIN 1,250 MG in Normal Saline 250 ML 167 MG IV (05:45)
[2018-07-03] MEDS: Ketorolac 15 MG/ML VIAL IM ×3 (05:53→22:33)
[2018-07-03] MEDS: Insulin Aspart 300 UNITS/3 ML PEN SC ×2 (05:53→12:27)
[2018-07-03] MEDS: LORazepam 2 MG/ML VIAL 0.5 MG IVP (06:19)
[2018-07-03 07:34] LABS: Abs Immature Grans 0.01 k/cumm (0.0-0.09); Absolute Basophil Count 0.01 k/cumm (0.0-0.2); Absolute Eosinophil Count 0.37 k/cumm (0.0-0.7); Absolute Lymphocyte Count 1.13 k/cumm (1.2-3.4); Basophils % 0.2; Eosinophils % 6.8; HCT 33.9 % (36.0-46.0); HGB 11.3 g/dL (12.0-15.5); Immature Grans % 0.2; Lymphocytes % 20.8; Mean Corp. HGB Concentration 33.3 g/dL (32.0-36.0); Mean Corpuscular Hemoglobin 30.8 pg (27.0-33.0); Mean Corpuscular Volume 92.4 fL (80-95); Mean Platelet Volume 10.9 fL (8.0-11.0); Monocytes % 11.1; Neutrophils % 60.9; Platelet Count 175 x1000/uL (130-400); RBC 3.67 m/cumm (4.00-5.20); White Blood Cell Count 5.42 k/cumm (4.4-10.8)
[2018-07-03 07:42] LABS: Anion Gap 6.1 mmol/L (3-11); BUN 9 mg/dL (7-18); CO2 27.9 mmol/L (21.0-32.0); CREATININE 0.73 mg/dL (0.55-1.02); Calcium 8.5 mg/dL (8.5-10.1); Chloride 104 mmol/L (98-107); Glucose 159 mg/dL (70-100); Potassium 3.7 mmol/L (3.5-5.1); Sodium 138 mmol/L (136-145)
[2018-07-03] MEDS: ACETAMINOPHEN 1,000 MG/100 ML BTL 400 MG IVPB (08:09)
--- NOTE | 2018-07-03 08:46 | PGE_ITS ---
Date of Service Date of service: 07/03/18 Time of Service: 08:43 Assessment and Plan (1) Ileus, postoperative: Current visit: No Status: Acute Post-op ileus. Discussed with Dr. Jewell. Abdomen benign on exam. Her mild discomfort on exam appears to be related to PEG and is not unexpected. No deep tenderness illicited on palpation. Bowel sounds are more active today. Recommend up as tolerated. Recommend trying to resume tube feeds at trickle rate (10cc/hr). Advance rate or change to bolus feeds on 07/04/18 if tolerating. (2) S/P percutaneous endoscopic gastrostomy (PEG) tube placement: Current visit: No Status: Acute POD # 4. PEG tube appears to be in position and functional. Subjective Interval history since last seen: Patient seen up in chair with nurse at bedside. Patient states she feels alright this morning. On questioning, notes some left-sided discomfort at the site of her PEG. Denies flatus or BM. No emesis. Exam Const General: cooperative and no acute distress Orientation: alert [facility] Head: normocephalic and atraumatic Eyes Sclera: sclerae normal Resp Effort & Inspection: normal respiratory effort and able to speak in complete sentences Cardio Jugular venous pressure: no JVD GI Inspection: non-distended and other (PEG site dressing intact; bile tinged fluid in tubing) Palpation: soft, not firm, no guarding, not rigid and tender (minimal discomfort to palpation at PEG site) Auscultation: normal bowel sounds (more active than 07/02/18) Skin General skin exam: no jaundice Objective Objective Clinical Data: Abnormal lab results 07/03/18 07/03/18 Range/Units 07:20 07:20 RBC 3.67 L (4.00-5.20) m/cumm Hgb 11.3 L (12.0-15.5) g/dL Hct 33.9 L (36.0-46.0) % Absolute Lymphocytes 1.13 L (1.2-3.4) k/cumm Glucose 159 H (70-100) mg/dL Vital Signs Temperature 36.2 C L 07/03/18 07:25 Temperature Source Tympanic 07/03/18 07:25 Pulse 70 07/03/18 08:38 Pulse Rhythm Regular 07/02/18 20:10 Pulse 89 06/25/18 19:01 Respiratory Rate 16 07/03/18 07:25 Respiratory Effort 07/02/18 20:10 Respiratory Depth Normal 07/02/18 20:10 Respiratory Pattern Normal 07/02/18 20:10 Blood Pressure 156/65 H 07/03/18 07:25 Blood Pressure Mean 88 06/25/18 19:01 Pulse Oximetry 95 07/03/18 07:25 Respiratory End-tidal CO2 17 06/29/18 13:28 Oxygen Delivery Method Room Air 07/03/18 07:25 Oxygen Flow Rate 0 07/03/18 07:25 Pain Level 10 07/03/18 07:25 Comment 06/29/18 15:10 Intake & Output 07/02/18 07/02/18 07/03/18 11:59 23:59 11:59 Intake Total 2050 / 3450 1400 / 3450 590 / 590 Output Total 1840 / 3615 1775 / 3615 750 / 750 Balance 210 / -165 -375 / -165 -160 / -160 Weight 87.1 kg 88.6 kg Intake: IV 2050 / 3450 1400 / 3450 590 / 590 Output: Urine 1565 / 3340 1775 / 3340 750 / 750 Post Void Residual 0 / 0 Output, Residual 275 / 275 Other: Urine Color Light Natty Straw Yellow Urine Appearance Clear Clear Clear Urine Odor Normal Normal Normal Comment pvr Voiding Methods Bedside Commode Bedside Commode Bedside Commode Laboratory Results WBC 5.42 k/cumm (4.4-10.8) D 07/03/18 07:20 RBC 3.67 m/cumm (4.00-5.20) L 07/03/18 07:20 Hgb 11.3 g/dL (12.0-15.5) L 07/03/18 07:20 Hct 33.9 % (36.0-46.0) L 07/03/18 07:20 MCV 92.4 fL (80-95) 07/03/18 07:20 MCH 30.8 pg (27.0-33.0) 07/03/18 07:20 MCHC 33.3 g/dL (32.0-36.0) 07/03/18 07:20 RDW 13.0 % (11.7-14.6) 07/03/18 07:20 Plt Count 175 x1000/uL (130-400) 07/03/18 07:20 MPV 10.9 fL (8.0-11.0) 07/03/18 07:20 Immature Gran % 0.2 07/03/18 07:20 Neutrophils % 60.9 07/03/18 07:20 Lymphocytes % 20.8 07/03/18 07:20 Monocytes % 11.1 07/03/18 07:20 Eosinophils % 6.8 07/03/18 07:20 Basophils % 0.2 07/03/18 07:20 Absolute Neutrophils 3.30 k/cumm (1.2-6.7) 07/03/18 07:20 Absolute Lymphocytes 1.13 k/cumm (1.2-3.4) L 07/03/18 07:20 Absolute Monocytes 0.60 k/cumm (0.11-0.7) 07/03/18 07:20 Absolute Eosinophils 0.37 k/cumm (0.0-0.7) 07/03/18 07:20 Absolute Basophils 0.01 k/cumm (0.0-0.2) 07/03/18 07:20 Differential Comment Agrees w/ instrument 06/29/18 06:45 RBC Morphology Normal 06/29/18 06:45 Sodium 138 mmol/L (136-145) 07/03/18 07:20 Potassium 3.7 mmol/L (3.5-5.1) 07/03/18 07:20 Chloride 104 mmol/L (98-107) 07/03/18 07:20 Carbon Dioxide 27.9 mmol/L (21.0-32.0) 07/03/18 07:20 Anion Gap 6.1 mmol/L (3-11) 07/03/18 07:20 BUN 9 mg/dL (7-18) 07/03/18 07:20 Creatinine 0.73 mg/dL (0.55-1.02) 07/03/18 07:20 Estimated GFR/1.73 m2 >= 60.00 (mL/min/1.73m2) 07/03/18 07:20 Glucose 159 mg/dL (70-100) H 07/03/18 07:20 Calcium 8.5 mg/dL (8.5-10.1) 07/03/18 07:20 Magnesium 2.0 mg/dL (1.8-2.4) 07/03/18 07:20 Total Bilirubin 0.5 mg/dL (0.2-1.0) 06/25/18 18:15 AST 28 U/L (15-37) 06/25/18 18:15 ALT 24 U/L (12-78) 06/25/18 18:15 Alkaline Phosphatase 72 U/L (46-116) 06/25/18 18:15 Troponin I < 0.02 ng/mL (0.00-0.06) 06/26/18 08:22 Total Protein 6.5 g/dL (6.4-8.2) 06/25/18 18:15 Albumin 3.0 g/dL (3.4-5.0) L 06/25/18 18:15 Vancomycin Trough < 0.8 ug/mL (10.0-20.0) L 07/01/18 15:00
[2018-07-03] MEDS: Enoxaparin 40 MG/0.4 ML SYR SC (08:47)
[2018-07-03] MEDS: Pantoprazole 40 MG VIAL IVP (08:48)
[2018-07-03] MEDS: Normal Saline Flush 10 ML SYR IVP ×3 (08:49→22:33)
[2018-07-03] MEDS: POTASSIUM CHLORIDE/D5-0.45NACL 1,000 ML 75 MEQ IV (08:55)
[2018-07-03] MEDS: metroNIDAZOLE 500 MG/100 ML BAG 100 MG IVPB ×2 (09:35→17:08)
[2018-07-03] MEDS: Multivitamin TAB 1 TAB UD (09:47)
[2018-07-03] MEDS: Escitalopram 10 MG TAB 30 MG UD (09:47)
[2018-07-03] MEDS: Propranolol 20 MG TAB NG ×3 (09:48→20:23)
[2018-07-03] MEDS: Levothyroxine 112 MCG TAB UD (09:48)
[2018-07-03] MEDS: Triamcinolone 0.1% CR 15 GM TUBE TP (10:00)
--- NOTE | 2018-07-03 14:22 | PDOC.CMPRO ---
- If Service Date Differs Date of service: 07/03/18 Time of Service: 14:40 Care Management Progress Note S/O: CM into meet with Philomena in the room she is sitting up in the recliner. She states she is not having any pain plan is to restart slow feedings today. Her medications will also be started as well. Anticipate once she is tolerating feeding she will be discharged to SNF for short term rehab prior to returning home with her sister. A:Philomena is a 72 year old female admitted with a diagnosis of failure to thrive. She was recently hospitalized for aspiration pneumonia and dysphagia. P:Philomena has a PEG tube for nutrition. At discharge Philomena is requesting skilled care in a rehabilitation facility. Referral was sent to [facility] by CM and the case was discussed with the non cdl driver. A bed will be available on Wednesday. CM will continue to support the patient, family, care team and discharge planning.
--- NOTE | 2018-07-03 14:45 | CMPROGNOTE_ITS ---
- If Service Date Differs Date of service: 07/03/18 Time of Service: 14:40 Care Management Progress Note S/O: CM into meet with Philomena in the room she is sitting up in the recliner. She states she is not having any pain plan is to restart slow feedings today. Her medications will also be started as well. Anticipate once she is tolerating feeding she will be discharged to SNF for short term rehab prior to returning home with her sister. A:Philomena is a 72 year old female admitted with a diagnosis of failure to thrive. She was recently hospitalized for aspiration pneumonia and dysphagia. P:Philomena has a PEG tube for nutrition. At discharge Philomena is requesting skilled care in a rehabilitation facility. Referral was sent to [facility] by CM and the case was discussed with the registered pharmacist. A bed will be available on Wednesday. CM will continue to support the patient, family, care team and discharge planning.
[2018-07-03] MEDS: Normal Saline 1,000 ML 75 ML IV (16:07)
--- NOTE | 2018-07-03 17:00 | W.PM.PROGNOT ---
Date of Service Date of service: 07/03/18 Time of Service: 17:00 Assessment and Plan (1) Ileus, postoperative: Current visit: No Status: Acute Improved - TF's resumed at trickle rates. Monitor residuals/bowel function. Avoid narcotics. (2) Aspiration pneumonia: Current visit: Yes Status: Acute No fevers overnight. Not requiring O2. Continue vancomycin/aztreonam/flagyl. Discussed aspiration precautions with family. (3) Dysphagia: Current visit: Yes Status: Acute s/p PEG. TF's resumed today. Read above (4) Tardive dyskinesia: Current visit: Yes Status: Acute Ingrezza resumed. (5) Schizophrenia: Current visit: Yes Status: Chronic Not presently on antipsychotics. Klonazepam resumed. (6) Ambulatory dysfunction: Current visit: Yes Status: Acute PT/OT (7) IDDM (insulin dependent diabetes mellitus): Current visit: Yes Status: Chronic Continue SSI/Accuchecks Q6hrs (8) Atrial flutter: Current visit: Yes Status: Acute Actually converted to NSR. D/c tele. D/c IV lopresor. High risk for anticoagulation. (9) Discharge planning issues: Current visit: Yes Status: Acute DNR/DNI Will need SNF on discharge (10) DVT prophylaxis: Current visit: Yes Status: Acute Lovenox Subjective Interval history since last seen: Ms Adames is passing flatus today and had a BM. Trickle feeds were started today, which the patient has tolerated. She continues to report LLQ pain but this is better than yesterday. Nursing noted that the patient coughed several times when she was turned to the left. She denies dizziness, chest pain, complains of some shortness of breath. Cough is dry. Denies nausea/vomiting. Exam Narrative Exam Narrative: General: obese female, sitting up in a chair, tremors and lip smacking c/w tardive dyskinesia, A&Ox3 HEENT: EOMI, MMM, lip smacking movements Heart: RRR, no m/r/g Lungs: Diminshed breath sounds B GI: abdomen is soft, tender suprapubically; no bowel sounds, mildly distended Extremities: trace edema BLE's, no clubbing/cyanosis; circular areas of hyperpigmentation noted throughout. Objective Objective Clinical Data: Abnormal lab results 07/03/18 07/03/18 Range/Units 07:20 07:20 RBC 3.67 L (4.00-5.20) m/cumm Hgb 11.3 L (12.0-15.5) g/dL Hct 33.9 L (36.0-46.0) % Absolute Lymphocytes 1.13 L (1.2-3.4) k/cumm Glucose 159 H (70-100) mg/dL Vital Signs Temperature 36.2 C L 07/03/18 16:12 Temperature Source Tympanic 07/03/18 16:12 Pulse 75 07/03/18 16:12 Pulse Rhythm Regular 07/03/18 07:55 Pulse 89 06/25/18 19:01 Respiratory Rate 19 07/03/18 16:12 Respiratory Effort Non-Labored 07/03/18 07:55 Respiratory Depth Normal 07/03/18 07:55 Respiratory Pattern Normal 07/03/18 07:55 Blood Pressure 122/54 L 07/03/18 16:12 Blood Pressure Mean 88 06/25/18 19:01 Pulse Oximetry 96 07/03/18 16:12 Respiratory End-tidal CO2 17 06/29/18 13:28 Oxygen Delivery Method Room Air 07/03/18 16:12 Oxygen Flow Rate 0 07/03/18 16:12 Pain Level 0 07/03/18 11:35 Comment 06/29/18 15:10 Intake & Output 07/02/18 07/03/18 07/03/18 23:59 11:59 23:59 Intake Total 1400 / 3450 1215 / 1688.75 473.75 / 1688.75 Output Total 1775 / 3615 965 / 1215 250 / 1215 Balance -375 / -165 250 / 473.75 223.75 / 473.75 Weight 88.6 kg Intake: IV 1400 / 3450 1140 / 1553.75 413.75 / 1553.75 Intake, Tube Feeding Amount 75 / 135 60 / 135 Output: Urine 1775 / 3340 950 / 1150 200 / 1150 Post Void Residual 0 / 0 Output, Residual 15 / 65 50 / 65 Other: Urine Color Straw Straw Yellow [place] Urine Appearance Clear Clear Urine Odor Normal Normal Comment pvr PVR Stool Size Small Smear Stool Characteristics Mucoid Soft Green Brown Black Voiding Methods Bedside Commode Bedside Commode Bedside Commode Laboratory Results WBC 5.42 k/cumm (4.4-10.8) D 07/03/18 07:20 RBC 3.67 m/cumm (4.00-5.20) L 07/03/18 07:20 Hgb 11.3 g/dL (12.0-15.5) L 07/03/18 07:20 Hct 33.9 % (36.0-46.0) L 07/03/18 07:20 MCV 92.4 fL (80-95) 07/03/18 07:20 MCH 30.8 pg (27.0-33.0) 07/03/18 07:20 MCHC 33.3 g/dL (32.0-36.0) 07/03/18 07:20 RDW 13.0 % (11.7-14.6) 07/03/18 07:20 Plt Count 175 x1000/uL (130-400) 07/03/18 07:20 MPV 10.9 fL (8.0-11.0) 07/03/18 07:20 Immature Gran % 0.2 07/03/18 07:20 Neutrophils % 60.9 07/03/18 07:20 Lymphocytes % 20.8 07/03/18 07:20 Monocytes % 11.1 07/03/18 07:20 Eosinophils % 6.8 07/03/18 07:20 Basophils % 0.2 07/03/18 07:20 Absolute Neutrophils 3.30 k/cumm (1.2-6.7) 07/03/18 07:20 Absolute Lymphocytes 1.13 k/cumm (1.2-3.4) L 07/03/18 07:20 Absolute Monocytes 0.60 k/cumm (0.11-0.7) 07/03/18 07:20 Absolute Eosinophils 0.37 k/cumm (0.0-0.7) 07/03/18 07:20 Absolute Basophils 0.01 k/cumm (0.0-0.2) 07/03/18 07:20 Differential Comment Agrees w/ instrument 06/29/18 06:45 RBC Morphology Normal 06/29/18 06:45 Sodium 138 mmol/L (136-145) 07/03/18 07:20 Potassium 3.7 mmol/L (3.5-5.1) 07/03/18 07:20 Chloride 104 mmol/L (98-107) 07/03/18 07:20 Carbon Dioxide 27.9 mmol/L (21.0-32.0) 07/03/18 07:20 Anion Gap 6.1 mmol/L (3-11) 07/03/18 07:20 BUN 9 mg/dL (7-18) 07/03/18 07:20 Creatinine 0.73 mg/dL (0.55-1.02) 07/03/18 07:20 Estimated GFR/1.73 m2 >= 60.00 (mL/min/1.73m2) 07/03/18 07:20 Glucose 159 mg/dL (70-100) H 07/03/18 07:20 Calcium 8.5 mg/dL (8.5-10.1) 07/03/18 07:20 Magnesium 2.0 mg/dL (1.8-2.4) 07/03/18 07:20 Total Bilirubin 0.5 mg/dL (0.2-1.0) 06/25/18 18:15 AST 28 U/L (15-37) 06/25/18 18:15 ALT 24 U/L (12-78) 06/25/18 18:15 Alkaline Phosphatase 72 U/L (46-116) 06/25/18 18:15 Troponin I < 0.02 ng/mL (0.00-0.06) 06/26/18 08:22 Total Protein 6.5 g/dL (6.4-8.2) 06/25/18 18:15 Albumin 3.0 g/dL (3.4-5.0) L 06/25/18 18:15 Vancomycin Trough < 0.8 ug/mL (10.0-20.0) L 07/01/18 15:00
[2018-07-03] MEDS: Patient's Own Medication 1 EACH MISC PEG (18:00)
--- NOTE | 2018-07-03 18:18 | W.PM.PROGNOT ---
Date of Service Date of service: 07/03/18 Time of Service: 18:19 Assessment and Plan (1) Ileus, postoperative: Current visit: No Status: Acute Post-op ileus - resolving. Abdomen benign on exam. Continue tube feeds at trickle rate over night then gradually increase to goal as tolerated. Avoid narcotics and encourage activity as tolerated. Nothing further to add from a surgical standpoint at this time. Will sign off. Please call as needed. (2) S/P percutaneous endoscopic gastrostomy (PEG) tube placement: Current visit: No Status: Acute POD # 4. PEG tube appears to be in position and functional. Subjective Interval history since last seen: Patient up in chair. Seen with nurse at bedside. Patient has passed flatus and had a couple small, soft BMs today. Tube feeds started at a trickle rate of 10cc/hr which she has tolerated so far without nausea, vomiting, or abdominal pain. Minimal residual 20-40 cc noted so far. Exam Const General: cooperative and no acute distress Orientation: alert Resp Effort & Inspection: normal respiratory effort and able to speak in complete sentences GI Inspection: non-distended and other (PEG site dressing intact) Palpation: soft, not firm, no guarding and nontender Auscultation: normal bowel sounds Other: PEG flushed by RN without resistance Objective Objective Clinical Data: Abnormal lab results 07/03/18 07/03/18 Range/Units 07:20 07:20 RBC 3.67 L (4.00-5.20) m/cumm Hgb 11.3 L (12.0-15.5) g/dL Hct 33.9 L (36.0-46.0) % Absolute Lymphocytes 1.13 L (1.2-3.4) k/cumm Glucose 159 H (70-100) mg/dL Vital Signs Temperature 36.2 C L 07/03/18 16:12 Temperature Source Tympanic 07/03/18 16:12 Pulse 75 07/03/18 16:12 Pulse Rhythm Regular 07/03/18 17:19 Pulse 89 06/25/18 19:01 Respiratory Rate 19 07/03/18 16:12 Respiratory Effort 07/03/18 17:19 Respiratory Depth Normal 07/03/18 17:19 Respiratory Pattern Normal 07/03/18 17:19 Blood Pressure 122/54 L 07/03/18 16:12 Blood Pressure Mean 88 06/25/18 19:01 Pulse Oximetry 96 07/03/18 16:12 Respiratory End-tidal CO2 17 06/29/18 13:28 Oxygen Delivery Method Room Air 07/03/18 16:12 Oxygen Flow Rate 0 07/03/18 16:12 Pain Level 0 07/03/18 11:35 Comment 06/29/18 15:10 Intake & Output 07/02/18 07/03/18 07/03/18 23:59 11:59 23:59 Intake Total 1400 / 3450 1215 / 1823.75 608.75 / 1823.75 Output Total 1775 / 3615 965 / 1215 250 / 1215 Balance -375 / -165 250 / 608.75 358.75 / 608.75 Weight 88.6 kg Intake: IV 1400 / 3450 1140 / 1688.75 548.75 / 1688.75 Intake, Tube Feeding Amount 75 / 135 60 / 135 Output: Urine 1775 / 3340 950 / 1150 200 / 1150 Post Void Residual 0 / 0 Output, Residual 15 / 65 50 / 65 Other: Urine Color Straw Straw Yellow [place] Urine Appearance Clear Clear Clear Urine Odor Normal Normal Comment pvr PVR Stool Size Small Small Stool Characteristics Mucoid Soft Green Brown Voiding Methods Bedside Commode Bedside Commode Bedside Commode Laboratory Results WBC 5.42 k/cumm (4.4-10.8) D 07/03/18 07:20 RBC 3.67 m/cumm (4.00-5.20) L 07/03/18 07:20 Hgb 11.3 g/dL (12.0-15.5) L 07/03/18 07:20 Hct 33.9 % (36.0-46.0) L 07/03/18 07:20 MCV 92.4 fL (80-95) 07/03/18 07:20 MCH 30.8 pg (27.0-33.0) 07/03/18 07:20 MCHC 33.3 g/dL (32.0-36.0) 07/03/18 07:20 RDW 13.0 % (11.7-14.6) 07/03/18 07:20 Plt Count 175 x1000/uL (130-400) 07/03/18 07:20 MPV 10.9 fL (8.0-11.0) 07/03/18 07:20 Immature Gran % 0.2 07/03/18 07:20 Neutrophils % 60.9 07/03/18 07:20 Lymphocytes % 20.8 07/03/18 07:20 Monocytes % 11.1 07/03/18 07:20 Eosinophils % 6.8 07/03/18 07:20 Basophils % 0.2 07/03/18 07:20 Absolute Neutrophils 3.30 k/cumm (1.2-6.7) 07/03/18 07:20 Absolute Lymphocytes 1.13 k/cumm (1.2-3.4) L 07/03/18 07:20 Absolute Monocytes 0.60 k/cumm (0.11-0.7) 07/03/18 07:20 Absolute Eosinophils 0.37 k/cumm (0.0-0.7) 07/03/18 07:20 Absolute Basophils 0.01 k/cumm (0.0-0.2) 07/03/18 07:20 Differential Comment Agrees w/ instrument 06/29/18 06:45 RBC Morphology Normal 06/29/18 06:45 Sodium 138 mmol/L (136-145) 07/03/18 07:20 Potassium 3.7 mmol/L (3.5-5.1) 07/03/18 07:20 Chloride 104 mmol/L (98-107) 07/03/18 07:20 Carbon Dioxide 27.9 mmol/L (21.0-32.0) 07/03/18 07:20 Anion Gap 6.1 mmol/L (3-11) 07/03/18 07:20 BUN 9 mg/dL (7-18) 07/03/18 07:20 Creatinine 0.73 mg/dL (0.55-1.02) 07/03/18 07:20 Estimated GFR/1.73 m2 >= 60.00 (mL/min/1.73m2) 07/03/18 07:20 Glucose 159 mg/dL (70-100) H 07/03/18 07:20 Calcium 8.5 mg/dL (8.5-10.1) 07/03/18 07:20 Magnesium 2.0 mg/dL (1.8-2.4) 07/03/18 07:20 Total Bilirubin 0.5 mg/dL (0.2-1.0) 06/25/18 18:15 AST 28 U/L (15-37) 06/25/18 18:15 ALT 24 U/L (12-78) 06/25/18 18:15 Alkaline Phosphatase 72 U/L (46-116) 06/25/18 18:15 Troponin I < 0.02 ng/mL (0.00-0.06) 06/26/18 08:22 Total Protein 6.5 g/dL (6.4-8.2) 06/25/18 18:15 Albumin 3.0 g/dL (3.4-5.0) L 06/25/18 18:15 Vancomycin Trough < 0.8 ug/mL (10.0-20.0) L 07/01/18 15:00
[2018-07-03] MEDS: VANCOMYCIN 1,250 MG in Normal Saline 250 ML 166.667 MG IV (18:35)
[2018-07-03] MEDS: clonazePAM 0.5 MG TAB UD (22:33)
[2018-07-03] MEDS: Simvastatin 20 MG TAB UD (22:33)
[2018-07-04] MEDS: AZTREONAM 2,000 MG in Normal Saline 100 ML 200 MG IVPB ×3 (00:06→16:27)
[2018-07-04 00:14] VITALS: BP 116/72; PULSE 78; RESP 18; TEMP 36.7; O2SAT 94
[2018-07-04] MEDS: Acetaminophen Solution 650 MG/20.3 ML CUP PO (00:58)
[2018-07-04] MEDS: metroNIDAZOLE 500 MG/100 ML BAG 100 MG IVPB ×4 (00:58→23:14)
[2018-07-04] MEDS: Ketorolac 15 MG/ML VIAL IM ×3 (02:11→21:50)
[2018-07-04] MEDS: Normal Saline Flush 10 ML SYR IVP ×3 (03:26→11:18)
[2018-07-04] MEDS: LORazepam 2 MG/ML VIAL 0.5 MG IVP (03:26)
[2018-07-04 03:27] VITALS: BP 138/78; PULSE 75; RESP 18; TEMP 36; O2SAT 94
[2018-07-04 05:29] LABS: Abs Immature Grans 0.03 k/cumm (0.0-0.09); Absolute Basophil Count 0.02 k/cumm (0.0-0.2); Absolute Eosinophil Count 0.68 k/cumm (0.0-0.7); Absolute Lymphocyte Count 1.89 k/cumm (1.2-3.4); Absolute Monocyte Count 0.73 k/cumm (0.11-0.7); Absolute Neutrophil Count 3.89 k/cumm (1.2-6.7); Basophils % 0.3; Eosinophils % 9.4; HGB 12.1 g/dL (12.0-15.5); Immature Grans % 0.4; Lymphocytes % 26.1; Mean Corp. HGB Concentration 33.6 g/dL (32.0-36.0); Mean Corpuscular Hemoglobin 30.9 pg (27.0-33.0); Mean Corpuscular Volume 91.8 fL (80-95); Mean Platelet Volume 10.9 fL (8.0-11.0); Monocytes % 10.1; Neutrophils % 53.7; Platelet Count 203 x1000/uL (130-400); RBC 3.92 m/cumm (4.00-5.20); RBC Distribution Width 13.1 % (11.7-14.6); White Blood Cell Count 7.24 k/cumm (4.4-10.8)
[2018-07-04 05:34] LABS: Anion Gap 8.4 mmol/L (3-11); BUN 13 mg/dL (7-18); CO2 26.6 mmol/L (21.0-32.0); Calcium 8.6 mg/dL (8.5-10.1); Chloride 107 mmol/L (98-107); Glucose 115 mg/dL (70-100); Magnesium 1.8 mg/dL (1.8-2.4); Potassium 3.9 mmol/L (3.5-5.1); Sodium 142 mmol/L (136-145)
[2018-07-04] MEDS: VANCOMYCIN 1,250 MG in Normal Saline 250 ML 167 MG IV ×2 (07:00→18:37)
[2018-07-04] MEDS: Levothyroxine 112 MCG TAB UD (07:00)
[2018-07-04 07:30] VITALS: BP 149/79; PULSE 74; RESP 20; TEMP 36.6; O2SAT 95
[2018-07-04] MEDS: Escitalopram 10 MG TAB 30 MG UD (08:34)
[2018-07-04] MEDS: Multivitamin TAB 1 TAB UD (08:34)
[2018-07-04] MEDS: Aspirin 81 MG CHEW UD (08:34)
[2018-07-04] MEDS: Propranolol 20 MG TAB NG (08:34)
[2018-07-04] MEDS: Enoxaparin 40 MG/0.4 ML SYR SC (08:35)
[2018-07-04] MEDS: Pantoprazole 40 MG VIAL IVP (08:36)
[2018-07-04] MEDS: Triamcinolone 0.1% CR 15 GM TUBE TP (08:52)
[2018-07-04] MEDS: Normal Saline 1,000 ML 75 ML IV (10:48)
[2018-07-04 11:30] VITALS: BP 138/81; PULSE 66; RESP 18; TEMP 37.2; O2SAT 97
--- NOTE | 2018-07-04 15:30 | DI.RAD_ITS ---
SYMPTOMS/DIAGNOSIS: ILEUS, NOT TOLERATING TUBE FEEDING, FAILURE TO THRIVE FLAT AND UPRIGHT VIEWS OF THE ABDOMEN: Comparison is made with June,. No free air is visible on the current exam. A PEG tube is again noted, which appears positioned in the stomach. There is no small or large bowel dilatation. Cholecystectomy clips are again noted. There are old right rib fractures. IMPRESSION: No evidence of bowel dilatation. Stable position of PEG tube. No free air is visible.
--- NOTE | 2018-07-04 15:48 | PT.INTREAT ---
Date of service: 07/04/18 Time of Service: 15:48 PT Notes Inpatient Physical Therapy Treatment Note [facility] Date: 07/04/18 PRECAUTIONS: Fall, PEG Tube SUBJECTIVE: Philomena reports feelings of fatigue and hunger today. She is agreeable to participating in PT. OBJECTIVE: PAIN: No c/o pain BED MOBILITY/TRANSFERS Sit-stand: Min A Stand-sit: Min A in a.m. requiring cueing for safety; CGA in p.m. GAIT Assistive Device: FWW Weight bearing: Full Assist: CGA Distance: 60' in a.m.; 100' in p.m. Deviation: Patient demonstrated increased eve in afternoon THEREX: Patient completed several LE strengthening exercises in both seated and standing positions, as per flow sheet. ASSESSMENT: Patient tolerated sessions without complaint. She was able to tolerate a progression in gait distance with FWW support and CGA. She would benefit from continued strengthening, as well as gait training for improved activity tolerance and mobility. PLAN: Continue with PT's POC TREATMENT CODE/TIME: Session 1: 25 minutes; 17832, [id number] Session 2: 20 minutes; [id number]
--- NOTE | 2018-07-04 15:52 | PTTR_ITS ---
Date of service: 07/04/18 Time of Service: 15:48 PT Notes Inpatient Physical Therapy Treatment Note [facility] Date: 07/04/18 PRECAUTIONS: Fall, PEG Tube SUBJECTIVE: Philomena reports feelings of fatigue and hunger today. She is agreeable to participating in PT. OBJECTIVE: PAIN: No c/o pain BED MOBILITY/TRANSFERS Sit-stand: Min A Stand-sit: Min A in a.m. requiring cueing for safety; CGA in p.m. GAIT Assistive Device: FWW Weight bearing: Full Assist: CGA Distance: 60' in a.m.; 100' in p.m. Deviation: Patient demonstrated increased eve in afternoon THEREX: Patient completed several LE strengthening exercises in both seated and standing positions, as per flow sheet. ASSESSMENT: Patient tolerated sessions without complaint. She was able to tolerate a progression in gait distance with FWW support and CGA. She would benefit from continued strengthening, as well as gait training for improved activity tolerance and mobility. PLAN: Continue with PT's POC TREATMENT CODE/TIME: Session 1: 25 minutes; 46911, [id number] Session 2: 20 minutes; [id number]
--- NOTE | 2018-07-04 16:47 | PDOC.CMPRO ---
- If Service Date Differs Date of service: 07/04/18 Time of Service: 16:50 Care Management Progress Note Care Management Progress Note S/O: Philomena was sitting up in the recliner during CM visit. She was dozing when I entered the room and states she is still not sleeping well. She has a lot on her mind but declined to discuss the details. During the night Philomnea's tube feedings needed to be stopped because of excessive residuals. Surgery will be asked to re-evaluate her today. Anticipate once she is tolerating feeding she will be discharged to SNF for short term rehab prior to returning home with her sister. A:Philomena is a 72 year old female admitted with a diagnosis of failure to thrive. She was recently hospitalized for aspiration pneumonia and dysphagia. P:Philomena has a PEG tube for nutrition. At discharge Philomena is requesting skilled care in a rehabilitation facility. Referral was sent to [facility] by CM and the case was discussed with the edi analyst. A bed will be available on Wednesday. CM will continue to support the patient, family, care team and discharge planning. cc:
--- NOTE | 2018-07-04 16:55 | CMPROGNOTE_ITS ---
- If Service Date Differs Date of service: 07/04/18 Time of Service: 16:50 Care Management Progress Note Care Management Progress Note S/O: Philomena was sitting up in the recliner during CM visit. She was dozing when I entered the room and states she is still not sleeping well. She has a lot on her mind but declined to discuss the details. During the night Philomena's tube feedings needed to be stopped because of excessive residuals. Surgery will be asked to re-evaluate her today. Anticipate once she is tolerating feeding she will be discharged to SNF for short term rehab prior to returning home with her sister. A:Philomena is a 72 year old female admitted with a diagnosis of failure to thrive. She was recently hospitalized for aspiration pneumonia and dysphagia. P:Philomena has a PEG tube for nutrition. At discharge Philomena is requesting skilled care in a rehabilitation facility. Referral was sent to [facility] by CM and the case was discussed with the economics lecturer. A bed will be available on Wednesday. CM will continue to support the patient, family, care team and discharge planning. cc:
[2018-07-04 19:47] VITALS: BP 122/69; PULSE 73; RESP 18; TEMP 36.3; O2SAT 96
--- NOTE | 2018-07-04 20:02 | PGE_ITS ---
Date of Service Date of service: 07/04/18 Time of Service: 14:50 Assessment and Plan (1) Ileus, postoperative: Current visit: No Status: Acute Better by acute abdominal series; did not tolerate trickle feeds last night. Will try again tonight. Avoid reglan due to risk of tardive dyskinesia. Monitor residuals/bowel function. Avoid narcotics. (2) Aspiration pneumonia: Current visit: Yes Status: Acute No fevers overnight. Not requiring O2. Continue vancomycin/aztreonam/flagyl (day 3). (3) Dysphagia: Current visit: Yes Status: Acute s/p PEG. As above (4) Tardive dyskinesia: Current visit: Yes Status: Acute Ingrezza resumed. (5) Schizophrenia: Current visit: Yes Status: Chronic Not presently on antipsychotics. Klonazepam resumed. (6) Ambulatory dysfunction: Current visit: Yes Status: Acute PT/OT (7) IDDM (insulin dependent diabetes mellitus): Current visit: Yes Status: Chronic Continue SSI/Accuchecks Q6hrs (8) Atrial flutter: Current visit: Yes Status: Acute Actually converted to NSR. Off tele High risk for anticoagulation. (9) Discharge planning issues: Current visit: Yes Status: Acute DNR/DNI Will need SNF on discharge (10) DVT prophylaxis: Current visit: Yes Status: Acute Lovenox Subjective Interval history since last seen: Complains of abdominal pain. Large residuals noted overnight. +BM + flatus. TF was held. Denies dizziness, chest pain, shortness of breath. Exam Narrative Exam Narrative: General: obese female, sitting up in a chair, tremors and lip smacking c/w tardive dyskinesia, less today, A&Ox3, looks weak/tired. HEENT: EOMI, MMM, lip smacking movements Heart: RRR, no m/r/g Lungs: Diminshed breath sounds B GI: abdomen is soft, tender diffusely today, + bowel sounds, mildly distended Extremities: trace edema BLE's, no clubbing/cyanosis; circular areas of hyperpigmentation noted throughout. Objective Objective Clinical Data: Abnormal lab results 07/04/18 07/04/18 Range/Units 05:20 05:20 RBC 3.92 L (4.00-5.20) m/cumm Absolute Monocytes 0.73 H (0.11-0.7) k/cumm Glucose 115 H (70-100) mg/dL Vital Signs Temperature 36.3 C L 07/04/18 19:47 Temperature Source Tympanic 07/04/18 19:47 Pulse 73 07/04/18 19:47 Pulse Rhythm Regular 07/04/18 07:45 Pulse 89 06/25/18 19:01 Respiratory Rate 18 07/04/18 19:47 Respiratory Effort Non-Labored 07/04/18 07:45 Respiratory Depth Normal 07/04/18 07:45 Respiratory Pattern Normal 07/04/18 07:45 Blood Pressure 122/69 07/04/18 19:47 Blood Pressure Mean 88 06/25/18 19:01 Pulse Oximetry 96 07/04/18 19:47 Respiratory End-tidal CO2 17 06/29/18 13:28 Oxygen Delivery Method Room Air 07/04/18 19:47 Oxygen Flow Rate 0 07/04/18 19:47 Pain Level 5 07/04/18 11:30 Comment 06/29/18 15:10 Intake & Output 07/03/18 07/04/18 07/04/18 23:59 11:59 23:59 Intake Total 960.00 / 2175.00 1428.75 / 1628.75 200 / 1628.75 Output Total 1255 / 2220 710 / 910 200 / 910 Balance -295.00 / -45.00 718.75 / 718.75 0 / 718.75 Weight 89.5 kg Intake: IV 900.00 / 2040.00 1388.75 / 1588.75 200 / 1588.75 Oral 0 / 0 Intake, Tube Feeding Amount 60 / 135 40 / 40 Output: Urine 1125 / 2075 650 / 850 200 / 850 Output, Residual 130 / 145 60 / 60 Other: Urine Color Yellow Yellow Yellow [place] Urine Appearance Clear Clear Clear Comment patient up to commode no void Stool Size Small Small Small Stool Characteristics Soft Soft Soft Liquid Brown Liquid Brown Voiding Methods Bedside Commode Bedside Commode Bedside Commode Laboratory Results WBC 7.24 k/cumm (4.4-10.8) D 07/04/18 05:20 RBC 3.92 m/cumm (4.00-5.20) L 07/04/18 05:20 Hgb 12.1 g/dL (12.0-15.5) 07/04/18 05:20 Hct 36.0 % (36.0-46.0) 07/04/18 05:20 MCV 91.8 fL (80-95) 07/04/18 05:20 MCH 30.9 pg (27.0-33.0) 07/04/18 05:20 MCHC 33.6 g/dL (32.0-36.0) 07/04/18 05:20 RDW 13.1 % (11.7-14.6) 07/04/18 05:20 Plt Count 203 x1000/uL (130-400) 07/04/18 05:20 MPV 10.9 fL (8.0-11.0) 07/04/18 05:20 Immature Gran % 0.4 07/04/18 05:20 Neutrophils % 53.7 07/04/18 05:20 Lymphocytes % 26.1 07/04/18 05:20 Monocytes % 10.1 07/04/18 05:20 Eosinophils % 9.4 07/04/18 05:20 Basophils % 0.3 07/04/18 05:20 Absolute Neutrophils 3.89 k/cumm (1.2-6.7) 07/04/18 05:20 Absolute Lymphocytes 1.89 k/cumm (1.2-3.4) 07/04/18 05:20 Absolute Monocytes 0.73 k/cumm (0.11-0.7) H 07/04/18 05:20 Absolute Eosinophils 0.68 k/cumm (0.0-0.7) 07/04/18 05:20 Absolute Basophils 0.02 k/cumm (0.0-0.2) 07/04/18 05:20 Differential Comment Agrees w/ instrument 06/29/18 06:45 RBC Morphology Normal 06/29/18 06:45 Sodium 142 mmol/L (136-145) 07/04/18 05:20 Potassium 3.9 mmol/L (3.5-5.1) 07/04/18 05:20 Chloride 107 mmol/L (98-107) 07/04/18 05:20 Carbon Dioxide 26.6 mmol/L (21.0-32.0) 07/04/18 05:20 Anion Gap 8.4 mmol/L (3-11) 07/04/18 05:20 BUN 13 mg/dL (7-18) 07/04/18 05:20 Creatinine 0.80 mg/dL (0.55-1.02) 07/04/18 05:20 Estimated GFR/1.73 m2 >= 60.00 (mL/min/1.73m2) 07/04/18 05:20 Glucose 115 mg/dL (70-100) H 07/04/18 05:20 Calcium 8.6 mg/dL (8.5-10.1) 07/04/18 05:20 Magnesium 1.8 mg/dL (1.8-2.4) 07/04/18 05:20 Total Bilirubin 0.5 mg/dL (0.2-1.0) 06/25/18 18:15 AST 28 U/L (15-37) 06/25/18 18:15 ALT 24 U/L (12-78) 06/25/18 18:15 Alkaline Phosphatase 72 U/L (46-116) 06/25/18 18:15 Troponin I < 0.02 ng/mL (0.00-0.06) 06/26/18 08:22 Total Protein 6.5 g/dL (6.4-8.2) 06/25/18 18:15 Albumin 3.0 g/dL (3.4-5.0) L 06/25/18 18:15 Vancomycin Trough 18.0 ug/mL (10.0-20.0) 07/04/18 05:20 Acute abdominal series: No evidence of bowel dilatation. Stable position of PEG tube. No free air is visible.
[2018-07-04] MEDS: Simvastatin 20 MG TAB UD (21:49)
[2018-07-04] MEDS: clonazePAM 0.5 MG TAB UD (21:50)
[2018-07-04] MEDS: Ondansetron 4 MG/2 ML VIAL IVP (21:50)
[2018-07-05] MEDS: AZTREONAM 2,000 MG in Normal Saline 100 ML 200 MG IVPB ×3 (00:22→16:56)
[2018-07-05 03:50] VITALS: BP 130/71; PULSE 74; RESP 22; TEMP 36.2; O2SAT 95
[2018-07-05] MEDS: Levothyroxine 112 MCG TAB UD (05:15)
[2018-07-05] MEDS: VANCOMYCIN 1,250 MG in Normal Saline 250 ML 167 MG IV ×2 (05:16→18:11)
[2018-07-05] MEDS: Normal Saline 1,000 ML 75 ML IV ×2 (05:17→20:09)
[2018-07-05 07:51] LABS: Abs Immature Grans 0.02 k/cumm (0.0-0.09); Absolute Basophil Count 0.03 k/cumm (0.0-0.2); Absolute Eosinophil Count 0.37 k/cumm (0.0-0.7); Absolute Lymphocyte Count 1.91 k/cumm (1.2-3.4); Absolute Monocyte Count 0.59 k/cumm (0.11-0.7); Absolute Neutrophil Count 3.18 k/cumm (1.2-6.7); Basophils % 0.5; Eosinophils % 6.1; HCT 35.6 % (36.0-46.0); HGB 11.5 g/dL (12.0-15.5); Immature Grans % 0.3; Lymphocytes % 31.3; Mean Corp. HGB Concentration 32.3 g/dL (32.0-36.0); Mean Corpuscular Hemoglobin 30.4 pg (27.0-33.0); Mean Corpuscular Volume 94.2 fL (80-95); Mean Platelet Volume 10.9 fL (8.0-11.0); Monocytes % 9.7; Neutrophils % 52.1; Platelet Count 214 x1000/uL (130-400); RBC 3.78 m/cumm (4.00-5.20); RBC Distribution Width 13.5 % (11.7-14.6)
[2018-07-05 07:53] LABS: Anion Gap 7.4 mmol/L (3-11); BUN 9 mg/dL (7-18); CO2 25.6 mmol/L (21.0-32.0); CREATININE 0.69 mg/dL (0.55-1.02); Calcium 8.2 mg/dL (8.5-10.1); Chloride 109 mmol/L (98-107); Glucose 105 mg/dL (70-100); Magnesium 1.7 mg/dL (1.8-2.4); Potassium 3.8 mmol/L (3.5-5.1); Sodium 142 mmol/L (136-145)
[2018-07-05 08:00] VITALS: BP 125/74; PULSE 75; RESP 20; TEMP 36.4; O2SAT 96
[2018-07-05] MEDS: Aspirin 81 MG CHEW UD (09:29)
[2018-07-05] MEDS: Escitalopram 10 MG TAB 30 MG UD (09:29)
[2018-07-05] MEDS: Propranolol 20 MG TAB NG ×3 (09:29→19:22)
[2018-07-05] MEDS: Multivitamin TAB 1 TAB UD (09:29)
[2018-07-05] MEDS: Normal Saline Flush 10 ML SYR IVP (09:29)
[2018-07-05] MEDS: Triamcinolone 0.1% CR 15 GM TUBE TP (09:30)
[2018-07-05] MEDS: Pantoprazole 40 MG VIAL IVP (09:30)
[2018-07-05] MEDS: Enoxaparin 40 MG/0.4 ML SYR SC (09:31)
[2018-07-05] MEDS: Ketorolac 15 MG/ML VIAL IM (09:31)
[2018-07-05] MEDS: metroNIDAZOLE 500 MG/100 ML BAG 100 MG IVPB ×2 (09:33→15:36)
[2018-07-05 12:11] VITALS: BP 106/67; PULSE 74; RESP 21; TEMP 36.5; O2SAT 94
--- NOTE | 2018-07-05 12:22 | PDOC.CMPRO ---
- If Service Date Differs Date of service: 07/05/18 Time of Service: 12:22 Care Management Progress Note S/O: Philomena was sitting up in the recliner, visiting with relatives , during CM visit. She was dozing on and off and her sister Chantal was asking if her medications had changed since the drowsiness seemed new. Her daughter felt that Philomena had been much more animated yesterday. Philomena's tube feedings were restarted at 10 pm last night at 10cc/hr. The residual this morning was 92cc. Anticipate once she is tolerating feeding she will be discharged to SNF for short term rehab prior to returning home with her sister. A:Philomena is a 72 year old female admitted with a diagnosis of failure to thrive. She was recently hospitalized for aspiration pneumonia and dysphagia. P:Philomena has a PEG tube for nutrition. At discharge Philomena is requesting skilled care in a rehabilitation facility. Referral was sent to [facility] by CM and the case was discussed with the animal technician. She has been accepted and will transfer when ready. CM will continue to support the patient, family, care team and discharge planning.
[2018-07-05] MEDS: MAGNESIUM SULFATE 2 GM/50 ML BAG IVPB (12:24)
[2018-07-05 16:26] VITALS: BP 121/65; PULSE 68; RESP 18; TEMP 37; O2SAT 95
[2018-07-05] MEDS: Patient's Own Medication 1 EACH MISC PEG (18:11)
--- NOTE | 2018-07-05 19:17 | W.PM.PROGNOT ---
Date of Service Date of service: 07/05/18 Time of Service: 16:20 Assessment and Plan (1) Ileus, postoperative: Current visit: No Status: Acute Clinically resolved. Advancing TF. Will discuss with nutrition as to how to best advance her TF's in am. Avoid reglan due to risk of tardive dyskinesia. Monitor residuals/bowel function. Avoid narcotics. (2) Aspiration pneumonia: Current visit: Yes Status: Acute No fevers overnight. Not requiring O2. Continue vancomycin/aztreonam/flagyl (day 4) - finish course tomorrow. (3) Dysphagia: Current visit: Yes Status: Acute s/p PEG. As above (4) Tardive dyskinesia: Current visit: Yes Status: Acute Ingrezza resumed. (5) Schizophrenia: Current visit: Yes Status: Chronic Not presently on antipsychotics. Klonazepam resumed. (6) Ambulatory dysfunction: Current visit: Yes Status: Acute PT/OT (7) IDDM (insulin dependent diabetes mellitus): Current visit: Yes Status: Chronic Continue SSI/Accuchecks Q6hrs (8) Atrial flutter: Current visit: Yes Status: Acute Actually converted to NSR. Off tele High risk for anticoagulation. (9) Discharge planning issues: Current visit: Yes Status: Acute DNR/DNI Will need SNF on discharge (10) DVT prophylaxis: Current visit: Yes Status: Acute Lovenox Subjective Interval history since last seen: Ms Adames has been able to tolerate the trickle feeds overnight and they are now advanced to 20 cc/hr. She states she only has pain at the PEG tube insertion site. She denies dizziness, chest pain, shortness of breath, nausea, vomiting. Exam Narrative Exam Narrative: General: obese female, laying in bed, tremors and lip smacking c/w tardive dyskinesia, A&Ox2 HEENT: EOMI, MMM, lip smacking movements Heart: RRR, no m/r/g Lungs: Diminshed breath sounds B GI: abdomen is soft, tender around PEG site, + bowel sounds, mildly distended Extremities: trace edema BLE's, no clubbing/cyanosis; circular areas of hyperpigmentation noted throughout. Objective Objective Clinical Data: Abnormal lab results 07/05/18 07/05/18 Range/Units 07:20 07:20 RBC 3.78 L (4.00-5.20) m/cumm Hgb 11.5 L (12.0-15.5) g/dL Hct 35.6 L (36.0-46.0) % Chloride 109 H (98-107) mmol/L Glucose 105 H (70-100) mg/dL Calcium 8.2 L (8.5-10.1) mg/dL Magnesium 1.7 L (1.8-2.4) mg/dL Vital Signs Temperature 37.0 C 07/05/18 16:26 Temperature Source Tympanic 07/05/18 16:26 Pulse 68 07/05/18 16:26 Pulse Rhythm Regular 07/05/18 15:30 Pulse 89 06/25/18 19:01 Respiratory Rate 18 07/05/18 16:26 Respiratory Effort Non-Labored 07/05/18 15:30 Respiratory Depth Normal 07/05/18 15:30 Respiratory Pattern Normal 07/05/18 15:30 Blood Pressure 121/65 07/05/18 16:26 Blood Pressure Mean 88 06/25/18 19:01 Pulse Oximetry 95 07/05/18 16:26 Respiratory End-tidal CO2 17 06/29/18 13:28 Oxygen Delivery Method Room Air 07/05/18 16:26 Oxygen Flow Rate 0 07/05/18 16:26 Pain Level 5 07/05/18 09:31 Comment 06/29/18 15:10 Intake & Output 07/04/18 07/05/18 07/05/18 23:59 11:59 23:59 Intake Total 450 / 1878.75 1900 / 2803.75 903.75 / 2803.75 Output Total 517 / 1277 1342 / 2098 756 / 2098 Balance -67 / 601.75 558 / 705.75 147.75 / 705.75 Weight 88.9 kg Intake: IV 450 / 1838.75 1900 / 2803.75 903.75 / 2803.75 Output: Urine 500 / 1150 1250 / 1950 700 / 1950 Output, Residual 17 / 127 92 / 148 56 / 148 Other: Urine Color Yellow Yellow Straw Urine Appearance Clear Clear Clear Urine Odor None None Stool Size Small Stool Characteristics Soft Liquid Brown Voiding Methods Bedside Commode Bedside Commode Bedside Commode Laboratory Results WBC 6.10 k/cumm (4.4-10.8) 07/05/18 07:20 RBC 3.78 m/cumm (4.00-5.20) L 07/05/18 07:20 Hgb 11.5 g/dL (12.0-15.5) L 07/05/18 07:20 Hct 35.6 % (36.0-46.0) L 07/05/18 07:20 MCV 94.2 fL (80-95) 07/05/18 07:20 MCH 30.4 pg (27.0-33.0) 07/05/18 07:20 MCHC 32.3 g/dL (32.0-36.0) 07/05/18 07:20 RDW 13.5 % (11.7-14.6) 07/05/18 07:20 Plt Count 214 x1000/uL (130-400) 07/05/18 07:20 MPV 10.9 fL (8.0-11.0) 07/05/18 07:20 Immature Gran % 0.3 07/05/18 07:20 Neutrophils % 52.1 07/05/18 07:20 Lymphocytes % 31.3 07/05/18 07:20 Monocytes % 9.7 07/05/18 07:20 Eosinophils % 6.1 07/05/18 07:20 Basophils % 0.5 07/05/18 07:20 Absolute Neutrophils 3.18 k/cumm (1.2-6.7) 07/05/18 07:20 Absolute Lymphocytes 1.91 k/cumm (1.2-3.4) 07/05/18 07:20 Absolute Monocytes 0.59 k/cumm (0.11-0.7) 07/05/18 07:20 Absolute Eosinophils 0.37 k/cumm (0.0-0.7) 07/05/18 07:20 Absolute Basophils 0.03 k/cumm (0.0-0.2) 07/05/18 07:20 Differential Comment Agrees w/ instrument 06/29/18 06:45 RBC Morphology Normal 06/29/18 06:45 Sodium 142 mmol/L (136-145) 07/05/18 07:20 Potassium 3.8 mmol/L (3.5-5.1) 07/05/18 07:20 Chloride 109 mmol/L (98-107) H 07/05/18 07:20 Carbon Dioxide 25.6 mmol/L (21.0-32.0) 07/05/18 07:20 Anion Gap 7.4 mmol/L (3-11) 07/05/18 07:20 BUN 9 mg/dL (7-18) 07/05/18 07:20 Creatinine 0.69 mg/dL (0.55-1.02) 07/05/18 07:20 Estimated GFR/1.73 m2 >= 60.00 (mL/min/1.73m2) 07/05/18 07:20 Glucose 105 mg/dL (70-100) H 07/05/18 07:20 Calcium 8.2 mg/dL (8.5-10.1) L 07/05/18 07:20 Magnesium 1.7 mg/dL (1.8-2.4) L 07/05/18 07:20 Total Bilirubin 0.5 mg/dL (0.2-1.0) 06/25/18 18:15 AST 28 U/L (15-37) 06/25/18 18:15 ALT 24 U/L (12-78) 06/25/18 18:15 Alkaline Phosphatase 72 U/L (46-116) 06/25/18 18:15 Troponin I < 0.02 ng/mL (0.00-0.06) 06/26/18 08:22 Total Protein 6.5 g/dL (6.4-8.2) 06/25/18 18:15 Albumin 3.0 g/dL (3.4-5.0) L 06/25/18 18:15 Vancomycin Trough 18.0 ug/mL (10.0-20.0) 07/04/18 05:20
[2018-07-05 19:33] VITALS: BP 151/68; PULSE 76; RESP 20; TEMP 37.3; O2SAT 94
[2018-07-05] MEDS: Simvastatin 20 MG TAB UD (22:10)
[2018-07-05] MEDS: clonazePAM 0.5 MG TAB UD (22:10)
[2018-07-05 23:50] VITALS: BP 110/69; PULSE 76; RESP 18; TEMP 36.7; O2SAT 94
[2018-07-06] MEDS: AZTREONAM 2,000 MG in Normal Saline 100 ML 200 MG IVPB ×2 (00:56→09:02)
[2018-07-06] MEDS: metroNIDAZOLE 500 MG/100 ML BAG 100 MG IVPB ×2 (02:02→09:40)
[2018-07-06 03:17] VITALS: BP 122/70; PULSE 75; RESP 20; TEMP 36.9; O2SAT 95
[2018-07-06] MEDS: Acetaminophen Solution 650 MG/20.3 ML CUP PO ×2 (03:40→12:56)
[2018-07-06] MEDS: Levothyroxine 112 MCG TAB UD (05:05)
[2018-07-06] MEDS: VANCOMYCIN 1,250 MG in Normal Saline 250 ML 167 MG IV (05:05)
[2018-07-06 07:15] VITALS: BP 126/68; PULSE 70; RESP 16; TEMP 36.8; O2SAT 95
[2018-07-06 07:29] LABS: Abs Immature Grans 0.03 k/cumm (0.0-0.09); Absolute Basophil Count 0.02 k/cumm (0.0-0.2); Absolute Eosinophil Count 0.25 k/cumm (0.0-0.7); Absolute Lymphocyte Count 2.16 k/cumm (1.2-3.4); Absolute Neutrophil Count 3.13 k/cumm (1.2-6.7); Basophils % 0.3; HCT 34.7 % (36.0-46.0); HGB 11.5 g/dL (12.0-15.5); Immature Grans % 0.5; Lymphocytes % 34.9; Mean Corp. HGB Concentration 33.1 g/dL (32.0-36.0); Mean Corpuscular Hemoglobin 31.1 pg (27.0-33.0); Mean Corpuscular Volume 93.8 fL (80-95); Mean Platelet Volume 10.8 fL (8.0-11.0); Monocytes % 9.7; Neutrophils % 50.6; Platelet Count 204 x1000/uL (130-400); RBC Distribution Width 13.5 % (11.7-14.6); White Blood Cell Count 6.19 k/cumm (4.4-10.8)
[2018-07-06 08:18] LABS: Anion Gap 8.8 mmol/L (3-11); BUN 8 mg/dL (7-18); CO2 24.2 mmol/L (21.0-32.0); CREATININE 0.69 mg/dL (0.55-1.02); Calcium 7.8 mg/dL (8.5-10.1); Chloride 109 mmol/L (98-107); Glucose 125 mg/dL (70-100); Magnesium 1.9 mg/dL (1.8-2.4); Potassium 3.2 mmol/L (3.5-5.1); Sodium 142 mmol/L (136-145)
[2018-07-06] MEDS: Pantoprazole 40 MG VIAL IVP (09:06)
[2018-07-06] MEDS: Normal Saline Flush 10 ML SYR IVP (09:07)
[2018-07-06] MEDS: Enoxaparin 40 MG/0.4 ML SYR SC (09:07)
[2018-07-06] MEDS: Aspirin 81 MG CHEW UD (09:08)
[2018-07-06] MEDS: Multivitamin TAB 1 TAB UD (09:08)
[2018-07-06] MEDS: Propranolol 20 MG TAB NG ×3 (09:08→19:17)
[2018-07-06] MEDS: Triamcinolone 0.1% CR 15 GM TUBE TP (09:08)
[2018-07-06] MEDS: Escitalopram 10 MG TAB 30 MG UD (09:08)
--- NOTE | 2018-07-06 10:25 | PDOC.CMPRO ---
- If Service Date Differs Date of service: 07/06/18 Time of Service: 10:25 Care Management Progress Note S/O: Philomena was sitting up in the recliner during CM visit. She was much more awake and alert and talkative today than she has been during CM visits the last few days. According to nursing, Philomena had some purulent drainage aroung her PEG tube this morning. She is still not able to tolerate TF at more that 20cc/hour. When asked how she was feeling about the PEG tube now that she has had it for a week, she said I wish it had gone the other way. I asked if she meant she wished she had not agreed to the tube and she answered yes. Dr. Bee is going to visit Philomena this afternoon to again discuss palliative care and clarify her wishes for care. Please refer to her note for further information. A:Philomena is a 72 year old female admitted with a diagnosis of failure to thrive. She was recently hospitalized for aspiration pneumonia and dysphagia. P:Philomena has a PEG tube for nutrition. At discharge Philomena is requesting skilled care in a rehabilitation facility. Referral was sent to [facility] by CM and the case was discussed with the chief nurse anesthetist. She has been accepted and will transfer when ready. CM will continue to support the patient, family, care team and discharge planning.
--- NOTE | 2018-07-06 12:10 | PT.INTREAT ---
Date of service: 07/06/18 Time of Service: 12:11 PT Notes Inpatient Physical Therapy Treatment Note [facility] Date: 07/06/2018 PRECAUTIONS: WBAT L SUBJECTIVE: Philomena reports that she is feeling a little better today. She is agreeable to participating in PT. OBJECTIVE: PAIN: No complains of pain BED MOBILITY/TRANSFERS Sit-stand: Min A Stand-sit: SBA GAIT Assistive Device: FWW Weight bearing: Full Assist: CGA Distance: 100' Deviation: Cueing for increased eve THEREX: Patient completed several lower extremity strengthening exercises in a standing position, as per flow sheet. She also completed shoulder flexion in a seated position. ASSESSMENT: Patient tolerated session without complaint. Patient requires cueing for increased eve. Patient will benefit from continued gait training at as well as strengthening for improved ability to perform daily functional tasks. PLAN: Continue with PT's POC TREATMENT CODE/TIME: Session 1: 20 minutes; [id number]
[2018-07-06] MEDS: Potassium Chloride Liquid 20 MEQ PKT 40 MEQ NG (12:56)
[2018-07-06] MEDS: Normal Saline 1,000 ML 75 ML IV (14:48)
[2018-07-06 16:21] VITALS: BP 118/71; PULSE 72; RESP 18; TEMP 36.3; O2SAT 94
[2018-07-06] MEDS: Patient's Own Medication 1 EACH MISC PEG (17:57)
[2018-07-06] MEDS: Ketorolac 15 MG/ML VIAL IM (18:27)
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
[2018-07-06] MEDS: Ondansetron 4 MG/2 ML VIAL IVP (19:16)
[2018-07-06 20:07] VITALS: BP 135/57; PULSE 73; RESP 18; TEMP 36.5; O2SAT 92
--- NOTE | 2018-07-06 20:22 | W.PM.PROGNOT ---
Date of Service Date of service: 07/06/18 Time of Service: 14:30 Assessment and Plan (1) Ileus, postoperative: Current visit: No Status: Acute Clinically resolved. Advancing TF/changing to Jevity 1.2 Avoid reglan due to risk of tardive dyskinesia. Monitor residuals/bowel function. Avoid narcotics. (2) Aspiration pneumonia: Current visit: Yes Status: Acute No fevers overnight. Not requiring O2. Finished antibiotics. (3) Dysphagia: Current visit: Yes Status: Acute s/p PEG. As above (4) Tardive dyskinesia: Current visit: Yes Status: Acute Ingrezza resumed. (5) Schizophrenia: Current visit: Yes Status: Chronic Not presently on antipsychotics. Klonazepam resumed. (6) Ambulatory dysfunction: Current visit: Yes Status: Acute PT/OT (7) IDDM (insulin dependent diabetes mellitus): Current visit: Yes Status: Chronic Continue SSI/Accuchecks Q6hrs (8) Atrial flutter: Current visit: Yes Status: Acute Actually converted to NSR. Off tele High risk for anticoagulation. (9) Discharge planning issues: Current visit: Yes Status: Acute DNR/DNI Will need SNF on discharge (10) DVT prophylaxis: Current visit: Yes Status: Acute Lovenox Subjective Interval history since last seen: Nursing reports that the patient is noted to have a black tongue. The patient denies feeling like her tongue is rough or dry. She notices no difference. She denies dizziness, chest pain, shortness of breath, nausea, vomiting. Complains of no abdominal discomfort today. States she is hungry. When asked if she wants to have the PEG tube, she states it's already in, no sense taking it out! Exam Narrative Exam Narrative: General: obese female, laying in bed, tremors and lip smacking c/w tardive dyskinesia, A&Ox2, speaking in longer sentences today. HEENT: EOMI, MMM, lip smacking movements, brown discoloration of the tongue Heart: RRR, no m/r/g Lungs: Diminshed breath sounds B GI: abdomen is soft, tender around PEG site, + bowel sounds, mildly distended Extremities: trace edema BLE's, no clubbing/cyanosis; circular areas of hyperpigmentation noted throughout. Objective Objective Clinical Data: Abnormal lab results 07/06/18 07/06/18 Range/Units 06:58 06:58 RBC 3.70 L (4.00-5.20) m/cumm Hgb 11.5 L (12.0-15.5) g/dL Hct 34.7 L (36.0-46.0) % Potassium 3.2 L (3.5-5.1) mmol/L Chloride 109 H (98-107) mmol/L Glucose 125 H (70-100) mg/dL Calcium 7.8 L (8.5-10.1) mg/dL Vital Signs Temperature 36.5 C 07/06/18 20:07 Temperature Source Tympanic 07/06/18 20:07 Pulse 73 07/06/18 20:07 Pulse Rhythm Regular 07/06/18 15:20 Pulse 89 06/25/18 19:01 Respiratory Rate 18 07/06/18 20:07 Respiratory Effort Non-Labored 07/06/18 15:20 Respiratory Depth Normal 07/06/18 15:20 Respiratory Pattern Normal 07/06/18 15:20 Blood Pressure 135/57 L 07/06/18 20:07 Blood Pressure Mean 88 06/25/18 19:01 Pulse Oximetry 92 L 07/06/18 20:07 Respiratory End-tidal CO2 17 06/29/18 13:28 Oxygen Delivery Method Room Air 07/06/18 20:07 Oxygen Flow Rate 0 07/06/18 20:07 Pain Level 8 07/06/18 18:27 Comment 06/29/18 15:10 Intake & Output 07/05/18 07/06/18 07/06/18 23:59 11:59 23:59 Intake Total 1500.00 / 3400.00 1656.00 / 1776.00 120 / 1776.00 Output Total 1056 / 2398 1325 / 1575 250 / 1575 Balance 444.00 / 1002.00 331.00 / 201.00 -130 / 201.00 Weight 90.1 kg Intake: IV 1500.00 / 3400.00 1550.00 / 1550.00 Oral 0 / 0 Intake, Tube Feeding Amount 106 / 226 120 / 226 Output: Urine 950 / 2200 1150 / 1350 200 / 1350 Output, Residual 106 / 198 175 / 225 50 / 225 Other: Urine Color Yellow Pale Yellow Yellow Urine Appearance Clear Clear Clear Urine Odor None Normal None Stool Size Small Small Stool Characteristics Soft Mucoid Brown Voiding Methods Bedside Commode Bedside Commode Bedside Commode Laboratory Results WBC 6.19 k/cumm (4.4-10.8) 07/06/18 06:58 RBC 3.70 m/cumm (4.00-5.20) L 07/06/18 06:58 Hgb 11.5 g/dL (12.0-15.5) L 07/06/18 06:58 Hct 34.7 % (36.0-46.0) L 07/06/18 06:58 MCV 93.8 fL (80-95) 07/06/18 06:58 MCH 31.1 pg (27.0-33.0) 07/06/18 06:58 MCHC 33.1 g/dL (32.0-36.0) 07/06/18 06:58 RDW 13.5 % (11.7-14.6) 07/06/18 06:58 Plt Count 204 x1000/uL (130-400) 07/06/18 06:58 MPV 10.8 fL (8.0-11.0) 07/06/18 06:58 Immature Gran % 0.5 07/06/18 06:58 Neutrophils % 50.6 07/06/18 06:58 Lymphocytes % 34.9 07/06/18 06:58 Monocytes % 9.7 07/06/18 06:58 Eosinophils % 4.0 07/06/18 06:58 Basophils % 0.3 07/06/18 06:58 Absolute Neutrophils 3.13 k/cumm (1.2-6.7) 07/06/18 06:58 Absolute Lymphocytes 2.16 k/cumm (1.2-3.4) 07/06/18 06:58 Absolute Monocytes 0.60 k/cumm (0.11-0.7) 07/06/18 06:58 Absolute Eosinophils 0.25 k/cumm (0.0-0.7) 07/06/18 06:58 Absolute Basophils 0.02 k/cumm (0.0-0.2) 07/06/18 06:58 Differential Comment Agrees w/ instrument 06/29/18 06:45 RBC Morphology Normal 06/29/18 06:45 Sodium 142 mmol/L (136-145) 07/06/18 06:58 Potassium 3.2 mmol/L (3.5-5.1) L 07/06/18 06:58 Chloride 109 mmol/L (98-107) H 07/06/18 06:58 Carbon Dioxide 24.2 mmol/L (21.0-32.0) 07/06/18 06:58 Anion Gap 8.8 mmol/L (3-11) 07/06/18 06:58 BUN 8 mg/dL (7-18) 07/06/18 06:58 Creatinine 0.69 mg/dL (0.55-1.02) 07/06/18 06:58 Estimated GFR/1.73 m2 >= 60.00 (mL/min/1.73m2) 07/06/18 06:58 Glucose 125 mg/dL (70-100) H 07/06/18 06:58 Calcium 7.8 mg/dL (8.5-10.1) L 07/06/18 06:58 Magnesium 1.9 mg/dL (1.8-2.4) 07/06/18 06:58 Total Bilirubin 0.5 mg/dL (0.2-1.0) 06/25/18 18:15 AST 28 U/L (15-37) 06/25/18 18:15 ALT 24 U/L (12-78) 06/25/18 18:15 Alkaline Phosphatase 72 U/L (46-116) 06/25/18 18:15 Troponin I < 0.02 ng/mL (0.00-0.06) 06/26/18 08:22 Total Protein 6.5 g/dL (6.4-8.2) 06/25/18 18:15 Albumin 3.0 g/dL (3.4-5.0) L 06/25/18 18:15 Vancomycin Trough 18.0 ug/mL (10.0-20.0) 07/04/18 05:20
[2018-07-06] MEDS: Simvastatin 20 MG TAB UD (21:31)
[2018-07-06] MEDS: clonazePAM 0.5 MG TAB UD (21:31)
[2018-07-07] VITALS (8 sets, daily range): BP systolic 105–135; BP diastolic 56–77; PULSE 72–79; RESP 18–20; TEMP 36.3–36.7; O2SAT 92–98
[2018-07-07] MEDS: Acetaminophen Solution 650 MG/20.3 ML CUP PO ×2 (03:20→12:45)
[2018-07-07] MEDS: Normal Saline 1,000 ML 75 ML IV ×2 (03:48→16:22)
[2018-07-07] MEDS: Levothyroxine 112 MCG TAB UD (06:42)
[2018-07-07] MEDS: Insulin Aspart 300 UNITS/3 ML PEN SC (07:01)
[2018-07-07 07:09] LABS: Abs Immature Grans 0.02 k/cumm (0.0-0.09); Absolute Basophil Count 0.02 k/cumm (0.0-0.2); Absolute Eosinophil Count 0.31 k/cumm (0.0-0.7); Absolute Lymphocyte Count 1.95 k/cumm (1.2-3.4); Absolute Monocyte Count 0.48 k/cumm (0.11-0.7); Absolute Neutrophil Count 2.58 k/cumm (1.2-6.7); Basophils % 0.4; Eosinophils % 5.8; HCT 36.3 % (36.0-46.0); HGB 11.8 g/dL (12.0-15.5); Immature Grans % 0.4; Lymphocytes % 36.4; Mean Corp. HGB Concentration 32.5 g/dL (32.0-36.0); Mean Corpuscular Hemoglobin 30.6 pg (27.0-33.0); Mean Platelet Volume 11.1 fL (8.0-11.0); Platelet Count 213 x1000/uL (130-400); RBC 3.86 m/cumm (4.00-5.20); RBC Distribution Width 13.7 % (11.7-14.6); White Blood Cell Count 5.36 k/cumm (4.4-10.8)
[2018-07-07 07:22] LABS: Anion Gap 9.2 mmol/L (3-11); BUN 7 mg/dL (7-18); CO2 24.8 mmol/L (21.0-32.0); CREATININE 0.65 mg/dL (0.55-1.02); Calcium 8.2 mg/dL (8.5-10.1); Chloride 111 mmol/L (98-107); Glucose 172 mg/dL (70-100); Magnesium 1.6 mg/dL (1.8-2.4); Potassium 3.4 mmol/L (3.5-5.1); Sodium 145 mmol/L (136-145)
[2018-07-07] MEDS: Triamcinolone 0.1% CR 15 GM TUBE TP (10:19)
[2018-07-07] MEDS: Enoxaparin 40 MG/0.4 ML SYR SC (10:19)
[2018-07-07] MEDS: Pantoprazole 40 MG VIAL IVP (10:20)
[2018-07-07] MEDS: Propranolol 20 MG TAB NG ×3 (10:21→20:03)
[2018-07-07] MEDS: Aspirin 81 MG CHEW UD (10:21)
[2018-07-07] MEDS: Escitalopram 10 MG TAB 30 MG UD (10:21)
--- NOTE | 2018-07-07 10:45 | PGE_ITS ---
Date of Service Date of service: 07/07/18 Time of Service: 10:37 Assessment and Plan (1) Impaired decision making: Current visit: Yes Status: Chronic per hosp (2) Cognitive developmental delay: Current visit: Yes Status: Chronic long standing (3) On tube feeding diet: Current visit: Yes Status: Chronic stable. cont to goal (4) Aspiration pneumonia: Current visit: Yes Status: Acute resolved (5) Dysphagia: Current visit: Yes Status: Chronic no change (6) Ileus, postoperative: Current visit: No Status: Acute ileus from procedure vs intestinal non motility from medications/tube feeds/lack of activity currently tolerating Jevity. continue towards goal tube feeds and electrolyte replacement per hosp and dietary. If pt decides she does NOT want to do tube feeds any further- would just not use tube. cannot safely be removed without Laparotomy at this time. No sign infection of tube site. will bacitracin. cont routine dressing ch anges. Subjective Interval history since last seen: pt had sm. liquid BM this am. on 30cc Jevity/Hr. denies abdom pain. tube site shows mild reactive changes- put some bacitracin around it. more inflammation than infection. Notes from palliative care and hosp are viewed. continue w/ tubes feeds and progressing towards goal at this time. Exam Chest Chest: normal inspection of the chest Resp Effort & Inspection: normal respiratory effort Auscultation: clear to auscultation bilaterally GI Inspection: abdominal wall ecchymosis Palpation: soft Other: tube site shows minimal redness- inflammatory changes and not infection. No BS. no distention. no pain. xray from 07/04 reviewed and is nl. no free air. Objective Objective Clinical Data: Abnormal lab results 07/07/18 07/07/18 Range/Units 06:40 06:40 RBC 3.86 L (4.00-5.20) m/cumm Hgb 11.8 L (12.0-15.5) g/dL MPV 11.1 H (8.0-11.0) fL Potassium 3.4 L (3.5-5.1) mmol/L Chloride 111 H (98-107) mmol/L Glucose 172 H (70-100) mg/dL Calcium 8.2 L (8.5-10.1) mg/dL Magnesium 1.6 L (1.8-2.4) mg/dL Vital Signs Temperature 36.3 C L 07/07/18 07:40 Temperature Source Tympanic 07/07/18 07:40 Pulse 76 07/07/18 07:40 Pulse Rhythm Regular 07/07/18 00:05 Pulse 89 06/25/18 19:01 Respiratory Rate 20 07/07/18 07:40 Respiratory Effort 07/07/18 00:05 Respiratory Depth Normal 07/07/18 00:05 Respiratory Pattern Normal 07/07/18 00:05 Blood Pressure 135/77 07/07/18 07:40 Blood Pressure Mean 88 06/25/18 19:01 Pulse Oximetry 98 07/07/18 07:40 Respiratory End-tidal CO2 17 06/29/18 13:28 Oxygen Delivery Method Room Air 07/07/18 07:40 Oxygen Flow Rate 0 07/07/18 07:40 Pain Level 4 07/07/18 03:20 Comment 07/07/18 03:00 Intake & Output 07/06/18 07/06/18 07/07/18 11:59 23:59 11:59 Intake Total 1656.00 / 1776.00 120 / 1776.00 1142 / 1142 Output Total 1325 / 1975 650 / 1975 655 / 655 Balance 331.00 / -199.00 -530 / -199.00 487 / 487 Weight 90.1 kg 91.2 kg Intake: IV 1550.00 / 1550.00 975 / 975 Oral 0 / 0 Intake, Tube Feeding Amount 106 / 226 120 / 226 167 / 167 Output: Urine 1150 / 1650 500 / 1650 300 / 300 Output, Residual 175 / 325 150 / 325 355 / 355 Other: Urine Color Pale Yellow Yellow Yellow Urine Appearance Clear Clear Clear Urine Odor Normal Normal Normal Stool Size Small Small Small Stool Characteristics Soft Mucoid Liquid Brown Voiding Methods Bedside Commode Bedside Commode Bedside Commode Laboratory Results WBC 5.36 k/cumm (4.4-10.8) 07/07/18 06:40 RBC 3.86 m/cumm (4.00-5.20) L 07/07/18 06:40 Hgb 11.8 g/dL (12.0-15.5) L 07/07/18 06:40 Hct 36.3 % (36.0-46.0) 07/07/18 06:40 MCV 94.0 fL (80-95) 07/07/18 06:40 MCH 30.6 pg (27.0-33.0) 07/07/18 06:40 MCHC 32.5 g/dL (32.0-36.0) 07/07/18 06:40 RDW 13.7 % (11.7-14.6) 07/07/18 06:40 Plt Count 213 x1000/uL (130-400) 07/07/18 06:40 MPV 11.1 fL (8.0-11.0) H 07/07/18 06:40 Immature Gran % 0.4 07/07/18 06:40 Neutrophils % 48.0 07/07/18 06:40 Lymphocytes % 36.4 07/07/18 06:40 Monocytes % 9.0 07/07/18 06:40 Eosinophils % 5.8 07/07/18 06:40 Basophils % 0.4 07/07/18 06:40 Absolute Neutrophils 2.58 k/cumm (1.2-6.7) 07/07/18 06:40 Absolute Lymphocytes 1.95 k/cumm (1.2-3.4) 07/07/18 06:40 Absolute Monocytes 0.48 k/cumm (0.11-0.7) 07/07/18 06:40 Absolute Eosinophils 0.31 k/cumm (0.0-0.7) 07/07/18 06:40 Absolute Basophils 0.02 k/cumm (0.0-0.2) 07/07/18 06:40 Differential Comment Agrees w/ instrument 06/29/18 06:45 RBC Morphology Normal 06/29/18 06:45 Sodium 145 mmol/L (136-145) 07/07/18 06:40 Potassium 3.4 mmol/L (3.5-5.1) L 07/07/18 06:40 Chloride 111 mmol/L (98-107) H 07/07/18 06:40 Carbon Dioxide 24.8 mmol/L (21.0-32.0) 07/07/18 06:40 Anion Gap 9.2 mmol/L (3-11) 07/07/18 06:40 BUN 7 mg/dL (7-18) 07/07/18 06:40 Creatinine 0.65 mg/dL (0.55-1.02) 07/07/18 06:40 Estimated GFR/1.73 m2 >= 60.00 (mL/min/1.73m2) 07/07/18 06:40 Glucose 172 mg/dL (70-100) H 07/07/18 06:40 Calcium 8.2 mg/dL (8.5-10.1) L 07/07/18 06:40 Magnesium 1.6 mg/dL (1.8-2.4) L 07/07/18 06:40 Total Bilirubin 0.5 mg/dL (0.2-1.0) 06/25/18 18:15 AST 28 U/L (15-37) 06/25/18 18:15 ALT 24 U/L (12-78) 06/25/18 18:15 Alkaline Phosphatase 72 U/L (46-116) 06/25/18 18:15 Troponin I < 0.02 ng/mL (0.00-0.06) 06/26/18 08:22 Total Protein 6.5 g/dL (6.4-8.2) 06/25/18 18:15 Albumin 3.0 g/dL (3.4-5.0) L 06/25/18 18:15 Vancomycin Trough 18.0 ug/mL (10.0-20.0) 07/04/18 05:20
[2018-07-07] MEDS: Potassium Chloride Liquid 20 MEQ PKT 40 MEQ NG (12:46)
[2018-07-07] MEDS: Magnesium Oxide 400 MG TAB NG ×2 (12:46→20:03)
--- NOTE | 2018-07-07 15:30 | PDOC.CMPRO ---
- If Service Date Differs Date of service: 07/07/18 Time of Service: 15:30 Care Management Progress Note S/O: Philomena was sitting up in bed during CM visit. She asked when she was going to receive her tube feeding but it was already infusing at 30cc/hr. This morning nursing reported an absence of bowel sounds. The plan is to increase the rate to 45cc/hr with [facility] A Step 1 PASARR was completed and faxed to Rehab and the PASARR coordinator. Awaiting response from PASARR Coordinator re: possible need for Step 2 PASARR. A:Philomena is a 72 year old female admitted with a diagnosis of failure to thrive. She was recently hospitalized for aspiration pneumonia and dysphagia. P:Philomena has a PEG tube for nutrition. At discharge Philomena is requesting skilled care in a rehabilitation facility. Referral was sent to [facility] and Rehab by CM and the case was discussed with the vault mechanic. She has been tentatively accepted and will transfer when ready. Awaiting response from PASARR Coordinator about possible need for Step 2 PASARR. CM will continue to provide support to the patient, family, care team and discharge planning.
--- NOTE | 2018-07-07 15:49 | CMPROGNOTE_ITS ---
- If Service Date Differs Date of service: 07/07/18 Time of Service: 15:30 Care Management Progress Note S/O: Philomena was sitting up in bed during CM visit. She asked when she was going to receive her tube feeding but it was already infusing at 30cc/hr. This morning nursing reported an absence of bowel sounds. The plan is to increase the rate to 45cc/hr with [facility]. A Step 1 PASARR was completed and faxed to Rehab and the PASARR co ordinator. Awaiting response from PASARR Coordinator re: possible need for Step 2 PASARR. A:Philomena is a 72 year old female admitted with a diagnosis of failure to thrive. She was recently hospitalized for aspiration pneumonia and dysphagia. P:Philomena has a PEG tube for nutrition. At discharge Philomena is requesting skilled care in a rehabilitation facility. Referral was sent to [facility] and Rehab by CM and the case was discussed with the sales stock associate. She has been tentatively accepted and will transfer when ready. Awaiting response from PASARR Coordinator about possible need for Step 2 PASARR. CM will continue to provide support to the patient, family, care team and discharge planning.
--- NOTE | 2018-07-07 15:56 | PT.INTREAT ---
Date of service: 07/07/18 Time of Service: 15:56 PT Notes Inpatient Physical Therapy Treatment Note [facility] Date: 07/07/2018 PRECAUTIONS: Fall, PEG Tube SUBJECTIVE: Philomena is agreeable to participating in PT. OBJECTIVE: PAIN: No c/o pain BED MOBILITY/TRANSFERS Sit-Supine: Max A Sit-stand: Min A Stand-sit: Min A GAIT Assistive Device: FWW Weight bearing: Full Assist: CGA Distance: 120' Deviation: Cueing for increased eve TOILETING: Patient toilet with assist for pericare ASSESSMENT: Patient tolerated session without complaint. Patient was able to tolerate a progression in gait distance with FWW support and CGA. Patient requires cueing to increase eve. Patient will benefit from continued gait training at as well as strengthening for improved ability to perform daily functional tasks. PLAN: Continue with PT's POC TREATMENT CODE/TIME: Session 1: 20 minutes; [id number]
[2018-07-07] MEDS: Patient's Own Medication 1 EACH MISC PEG (18:04)
[2018-07-07] MEDS: Bacitracin 1 PACKET TP (20:03)
--- NOTE | 2018-07-07 20:31 | W.PM.PROGNOT ---
Date of Service Date of service: 07/07/18 Time of Service: 15:00 Assessment and Plan (1) Ileus, postoperative: Current visit: No Status: Resolved Clinically resolved. Slowly titrating Jevity 1.2 Currently at 45 cc/hr. [place] revisiting with nutrition as previous recommendations were made re gleucerna. Avoid reglan due to risk of tardive dyskinesia. Monitor residuals/bowel function. Avoid narcotics. (2) Aspiration pneumonia: Current visit: Yes Status: Acute No fevers overnight. Not requiring O2. Finished antibiotics. (3) Dysphagia: Current visit: Yes Status: Chronic s/p PEG. As above (4) Tardive dyskinesia: Current visit: Yes Status: Chronic Continue ingrezza (5) Schizophrenia: Current visit: Yes Status: Chronic Not presently on antipsychotics. Klonazepam resumed. Discussed with patient's outpatient psychiatry Provider (Anita Shepherd). She recommends that we do not start any antipsychotics on Philomena unless she actually becomes psichotic. If she does, she feels the patient would do best with clozaril. (6) Ambulatory dysfunction: Current visit: Yes Status: Acute PT/OT (7) IDDM (insulin dependent diabetes mellitus): Current visit: Yes Status: Chronic Continue SSI/Accuchecks Q6hrs (8) Atrial flutter: Current visit: Yes Status: Acute Actually converted to NSR. Off tele High risk for anticoagulation. (9) Discharge planning issues: Current visit: Yes Status: Acute DNR/DNI Will need SNF on discharge (10) DVT prophylaxis: Current visit: Yes Status: Acute Lovenox Subjective Interval history since last seen: Philomena states she is having some LLQ pain. She denies dizziness, chest pain, shortness of breath, nausea, vomiting. Exam Narrative Exam Narrative: General: obese female, laying in bed, tremors and lip smacking c/w tardive dyskinesia, A&Ox2, interactive HEENT: EOMI, MMM, lip smacking movements Heart: RRR, no m/r/g Lungs: Diminshed breath sounds B GI: abdomen is soft, + bowel sounds Extremities: trace edema BLE's, no clubbing/cyanosis; circular areas of hyperpigmentation noted throughout. Objective Objective Clinical Data: Abnormal lab results 07/07/18 07/07/18 Range/Units 06:40 06:40 RBC 3.86 L (4.00-5.20) m/cumm Hgb 11.8 L (12.0-15.5) g/dL MPV 11.1 H (8.0-11.0) fL Potassium 3.4 L (3.5-5.1) mmol/L Chloride 111 H (98-107) mmol/L Glucose 172 H (70-100) mg/dL Calcium 8.2 L (8.5-10.1) mg/dL Magnesium 1.6 L (1.8-2.4) mg/dL Vital Signs Temperature 36.7 C 07/07/18 19:32 Temperature Source Tympanic 07/07/18 19:32 Pulse 77 07/07/18 19:32 Pulse Rhythm Regular 07/07/18 15:35 Pulse 89 06/25/18 19:01 Respiratory Rate 19 07/07/18 19:32 Respiratory Effort Non-Labored 07/07/18 15:35 Respiratory Depth Normal 07/07/18 15:35 Respiratory Pattern Normal 07/07/18 15:35 Blood Pressure 124/71 07/07/18 19:32 Blood Pressure Mean 88 06/25/18 19:01 Pulse Oximetry 93 L 07/07/18 19:32 Respiratory End-tidal CO2 17 06/29/18 13:28 Oxygen Delivery Method Room Air 07/07/18 19:32 Oxygen Flow Rate 0 07/07/18 19:32 Pain Level 5 07/07/18 12:45 Comment 07/07/18 03:00 Intake & Output 07/06/18 07/07/18 07/07/18 23:59 11:59 23:59 Intake Total 120 / 1776.00 1142 / 2134.5 992.5 / 2134.5 Output Total / 1974 805 / 1850 1045 / 1850 Balance -530 / -199.00 337 / 284.5 -52.5 / 284.5 Weight 91.2 kg Intake: IV 975 / 1917.5 942.5 / 1917.5 Intake, Tube Feeding Amount 120 / 226 167 / 217 50 / 217 Output: Urine 500 / 1650 450 / 1350 900 / 1350 Output, Residual 150 / 325 355 / 500 145 / 500 Other: Urine Color Yellow Yellow Yellow Urine Appearance Clear Clear Clear Urine Odor Normal Normal Normal Stool Size Small Small Stool Characteristics Mucoid Liquid Brown Voiding Methods Bedside Commode Bedside Commode Bedside Commode Laboratory Results WBC 5.36 k/cumm (4.4-10.8) 07/07/18 06:40 RBC 3.86 m/cumm (4.00-5.20) L 07/07/18 06:40 Hgb 11.8 g/dL (12.0-15.5) L 07/07/18 06:40 Hct 36.3 % (36.0-46.0) 07/07/18 06:40 MCV 94.0 fL (80-95) 07/07/18 06:40 MCH 30.6 pg (27.0-33.0) 07/07/18 06:40 MCHC 32.5 g/dL (32.0-36.0) 07/07/18 06:40 RDW 13.7 % (11.7-14.6) 07/07/18 06:40 Plt Count 213 x1000/uL (130-400) 07/07/18 06:40 MPV 11.1 fL (8.0-11.0) H 07/07/18 06:40 Immature Gran % 0.4 07/07/18 06:40 Neutrophils % 48.0 07/07/18 06:40 Lymphocytes % 36.4 07/07/18 06:40 Monocytes % 9.0 07/07/18 06:40 Eosinophils % 5.8 07/07/18 06:40 Basophils % 0.4 07/07/18 06:40 Absolute Neutrophils 2.58 k/cumm (1.2-6.7) 07/07/18 06:40 Absolute Lymphocytes 1.95 k/cumm (1.2-3.4) 07/07/18 06:40 Absolute Monocytes 0.48 k/cumm (0.11-0.7) 07/07/18 06:40 Absolute Eosinophils 0.31 k/cumm (0.0-0.7) 07/07/18 06:40 Absolute Basophils 0.02 k/cumm (0.0-0.2) 07/07/18 06:40 Differential Comment Agrees w/ instrument 06/29/18 06:45 RBC Morphology Normal 06/29/18 06:45 Sodium 145 mmol/L (136-145) 07/07/18 06:40 Potassium 3.4 mmol/L (3.5-5.1) L 07/07/18 06:40 Chloride 111 mmol/L (98-107) H 07/07/18 06:40 Carbon Dioxide 24.8 mmol/L (21.0-32.0) 07/07/18 06:40 Anion Gap 9.2 mmol/L (3-11) 07/07/18 06:40 BUN 7 mg/dL (7-18) 07/07/18 06:40 Creatinine 0.65 mg/dL (0.55-1.02) 07/07/18 06:40 Estimated GFR/1.73 m2 >= 60.00 (mL/min/1.73m2) 07/07/18 06:40 Glucose 172 mg/dL (70-100) H 07/07/18 06:40 Calcium 8.2 mg/dL (8.5-10.1) L 07/07/18 06:40 Magnesium 1.6 mg/dL (1.8-2.4) L 07/07/18 06:40 Total Bilirubin 0.5 mg/dL (0.2-1.0) 06/25/18 18:15 AST 28 U/L (15-37) 06/25/18 18:15 ALT 24 U/L (12-78) 06/25/18 18:15 Alkaline Phosphatase 72 U/L (46-116) 06/25/18 18:15 Troponin I < 0.02 ng/mL (0.00-0.06) 06/26/18 08:22 Total Protein 6.5 g/dL (6.4-8.2) 06/25/18 18:15 Albumin 3.0 g/dL (3.4-5.0) L 06/25/18 18:15 Vancomycin Trough 18.0 ug/mL (10.0-20.0) 07/04/18 05:20
[2018-07-07] MEDS: Simvastatin 20 MG TAB UD (21:11)
[2018-07-07] MEDS: clonazePAM 0.5 MG TAB UD (21:11)
[2018-07-08] VITALS (7 sets, daily range): BP systolic 132–148; BP diastolic 64–83; PULSE 62–85; RESP 16–20; TEMP 36.3–36.9; O2SAT 93–96
[2018-07-08] MEDS: Acetaminophen Solution 650 MG/20.3 ML CUP PO ×2 (04:11→21:10)
[2018-07-08] MEDS: Levothyroxine 112 MCG TAB UD (05:25)
[2018-07-08] MEDS: Normal Saline 1,000 ML 75 ML IV ×2 (05:25→19:10)
[2018-07-08] MEDS: Insulin Aspart 300 UNITS/3 ML PEN SC ×3 (06:01→23:53)
[2018-07-08 07:17] LABS: Abs Immature Grans 0.02 k/cumm (0.0-0.09); Absolute Basophil Count 0.01 k/cumm (0.0-0.2); Absolute Eosinophil Count 0.31 k/cumm (0.0-0.7); Absolute Lymphocyte Count 1.94 k/cumm (1.2-3.4); Absolute Monocyte Count 0.52 k/cumm (0.11-0.7); Absolute Neutrophil Count 2.68 k/cumm (1.2-6.7); Basophils % 0.2; Eosinophils % 5.7; HCT 35.8 % (36.0-46.0); HGB 11.4 g/dL (12.0-15.5); Immature Grans % 0.4; Lymphocytes % 35.4; Mean Corp. HGB Concentration 31.8 g/dL (32.0-36.0); Mean Corpuscular Hemoglobin 30.1 pg (27.0-33.0); Mean Corpuscular Volume 94.5 fL (80-95); Mean Platelet Volume 11.1 fL (8.0-11.0); Monocytes % 9.5; Neutrophils % 48.8; Platelet Count 218 x1000/uL (130-400); RBC 3.79 m/cumm (4.00-5.20); RBC Distribution Width 13.8 % (11.7-14.6); White Blood Cell Count 5.48 k/cumm (4.4-10.8)
[2018-07-08 07:26] LABS: Anion Gap 8.2 mmol/L (3-11); CO2 25.8 mmol/L (21.0-32.0); CREATININE 0.59 mg/dL (0.55-1.02); Chloride 109 mmol/L (98-107); Glucose 192 mg/dL (70-100); Magnesium 1.5 mg/dL (1.8-2.4); Potassium 3.6 mmol/L (3.5-5.1); Sodium 143 mmol/L (136-145)
[2018-07-08 07:40] LABS: BUN 4 mg/dL (7-18)
[2018-07-08] MEDS: Escitalopram 10 MG TAB 30 MG UD (08:46)
[2018-07-08] MEDS: Bacitracin 1 PACKET TP ×2 (08:48→21:10)
[2018-07-08] MEDS: Aspirin 81 MG CHEW UD (08:49)
[2018-07-08] MEDS: clonazePAM 0.5 MG TAB 0.25 MG UD (08:49)
[2018-07-08] MEDS: Propranolol 20 MG TAB NG ×3 (08:49→21:09)
[2018-07-08] MEDS: Pantoprazole 40 MG VIAL IVP (08:49)
[2018-07-08] MEDS: Magnesium Oxide 400 MG TAB NG ×2 (08:49→21:09)
[2018-07-08] MEDS: Normal Saline Flush 10 ML SYR IVP ×2 (08:50→21:10)
[2018-07-08] MEDS: Enoxaparin 40 MG/0.4 ML SYR SC (08:50)
[2018-07-08] MEDS: Triamcinolone 0.1% CR 15 GM TUBE TP (11:58)
--- NOTE | 2018-07-08 14:01 | PDOC.CMPRO ---
- If Service Date Differs Date of service: 07/08/18 Time of Service: 14:01 Care Management Progress Note S/O: Philomena was sitting up in bed during CM visit. Philomena is having large residuals with her tube feedings plan today to to attempt bolus feedings depending how she tolerates she will [facility]. PASARR step 2 pending determination by PASARR coordinator. Awaiting response from PASARR coordinator. A:Philomena is a 72 year old female admitted with a diagnosis of failure to thrive. She was recently hospitalized for aspiration pneumonia and dysphagia. P:Philomena has a PEG tube for nutrition. At discharge Philomena is requesting skilled care in a rehabilitation facility. Referral was sent to [facility] by CM and the case was discussed with the drupal architect. She has been tentatively accepted and will transfer when ready. Awaiting response from PASARR Coordinator about possible need for Step 2 PASARR. CM will continue to provide support to the patient, family, care team and discharge planning.
--- NOTE | 2018-07-08 14:09 | CMPROGNOTE_ITS ---
- If Service Date Differs Date of service: 07/08/18 Time of Service: 14:01 Care Management Progress Note S/O: Philomena was sitting up in bed during CM visit. Philomena is having large residuals with her tube feedings plan today to to attempt bolus feedings depending how she tolerates she will be [facility]. PASARR step 2 pending determination by PASARR coordinator. Awaiting response from PASARR coordinator. A:Philomena is a 72 year old female admitted with a diagnosis of failure to thrive. She was recently hospitalized for aspiration pneumonia and dysphagia. P:Philomena has a PEG tube for nutrition. At discharge Philomena is requesting skilled care in a rehabilitation facility. Referral was sent to [facility] by CM and the case was discussed with the wire charger. She has been tentatively accepted and will transfer when ready. A waiting response from PASARR Coordinator about possible need for Step 2 PASARR. CM will continue to provide support to the patient, family, care team and discharge planning.
--- NOTE | 2018-07-08 15:09 | PT.INTREAT ---
Date of service: 07/08/18 Time of Service: 15:09 PT Notes Inpatient Physical Therapy Treatment Note [facility] Date: 07/08/2018 PRECAUTIONS: Fall, PEG Tube SUBJECTIVE: Philomena is agreeable to participating in PT following encouragement from this therapist and the family members present in room. OBJECTIVE: PAIN: No c/o pain BED MOBILITY/TRANSFERS Sit-stand: Min A Stand-sit: CGA GAIT Assistive Device: FWW Weight bearing: Full Assist: CGA Distance: 160' Deviation: Cueing for increased eve THEREX: Patient completed a LE strengthening program, as per flow sheet. TOILETING: Patient toilet with assist for pericare ASSESSMENT: Patient tolerated session without complaint. Patient was able to tolerate a progression in gait distance with FWW support and CGA. Patient requires cueing to increase eve. Patient will benefit from continued gait training at as well as strengthening for improved ability to perform daily functional tasks. PLAN: Continue with PT's POC TREATMENT CODE/TIME: Session 1: 30 minutes; [id number] x2
--- NOTE | 2018-07-08 17:06 | W.PM.PROGNOT ---
Date of Service Date of service: 07/08/18 Time of Service: 17:06 Assessment and Plan (1) Aspiration pneumonia: Current visit: Yes Status: Acute Patient is n.p.o. She is now on tube feeds. Her respiratory status is stable. She has completed her antibiotic course. (2) On tube feeding diet: Current visit: Yes Status: Chronic Receiving tube feeds via PEG tube. Her residuals were running somewhat high so she was changed from Jevity to Osmolite. Continue at 45 cc/h with plans to advance to 60 cc/h per protocol. The contingency would be to change to bolus feeds of approximately 240 cc 5 times per day to get her her daily nutritional requirements. (3) Cognitive developmental delay: Current visit: Yes Status: Chronic Patient has underlying developmental delay, schizophrenia, bipolar disorder. She developed worsening tardive dyskinesia on Vrylar. Her mental health provider is considering Clazuril as a possibility. (4) Schizophrenia: Current visit: Yes Status: Chronic Continue present meds. Med changes as per her mental health provider (5) Tardive dyskinesia: Current visit: Yes Status: Chronic Her tardive dyskinesia is quite severe. She is now n.p.o., on tube feeds. (6) Discharge planning issues: Current visit: Yes Status: Acute She is DNR/DNI. Continue to monitor in acute care status until her feeding issues are stabilized and electrolytes are normal. Subjective Interval history since last seen: Patient is lying comfortably in bed, watching TV. She responds to my presence appropriately. She was able to allow exam and respond appropriately. She continues to have tongue thrusting consistent with her tardive dyskinesia. She has a significant tremor. Exam Narrative Exam Narrative: On exam she is lying comfortably in bed. She has obvious tongue thrusting from her tardive dyskinesia. She has a marked tremor when she tries to reach and grasp at things. She is moving upper and lower extremities reasonably well with purposeful movements. Her tube feeds appear to be infusing well. She has no abdominal tenderness to palpation. She had no respiratory difficulty or evidence of aspiration. Objective Objective Clinical Data: Abnormal lab results 07/08/18 07/08/18 Range/Units 07:05 07:05 RBC 3.79 L (4.00-5.20) m/cumm Hgb 11.4 L (12.0-15.5) g/dL Hct 35.8 L (36.0-46.0) % MCHC 31.8 L (32.0-36.0) g/dL MPV 11.1 H (8.0-11.0) fL Chloride 109 H (98-107) mmol/L BUN 4 L (7-18) mg/dL Glucose 192 H (70-100) mg/dL Calcium 8.0 L (8.5-10.1) mg/dL Magnesium 1.5 L (1.8-2.4) mg/dL Vital Signs Temperature 36.6 C 07/08/18 11:00 Temperature Source Tympanic 07/08/18 11:00 Pulse 62 07/08/18 11:00 Pulse Rhythm Regular 07/08/18 08:30 Pulse 89 06/25/18 19:01 Respiratory Rate 18 07/08/18 11:00 Respiratory Effort Non-Labored 07/08/18 08:30 Respiratory Depth Normal 07/08/18 08:30 Respiratory Pattern Normal 07/08/18 08:30 Blood Pressure 137/64 07/08/18 11:00 Blood Pressure Mean 88 06/25/18 19:01 Pulse Oximetry 94 L 07/08/18 11:00 Respiratory End-tidal CO2 17 06/29/18 13:28 Oxygen Delivery Method Room Air 07/08/18 11:00 Oxygen Flow Rate 0 07/08/18 11:00 Pain Level 0 07/08/18 06:00 Comment 07/08/18 06:00 Intake & Output 07/07/18 07/08/18 07/08/18 23:59 11:59 23:59 Intake Total 992.5 / 2134.5 1010 / 1010 Output Total 1490 / 2295 1865 / 1940 75 / 1940 Balance -497.5 / -160.5 -855 / -930 -75 / -930 Weight 93.1 kg Intake: IV 942.5 / 1917.5 1010 / 1010 Intake, Tube Feeding Amount 50 / 217 Output: Urine 1200 / 1650 1850 / 1850 Output, Residual 290 / 645 15 75 / 90 Other: Urine Color Yellow Yellow Yellow Urine Appearance Clear Clear Clear Urine Odor None Normal Normal Comment oob to commode, no void Stool Size Small Moderate Stool Characteristics Soft Soft Liquid Liquid Brown Voiding Methods Bedside Commode Bedside Commode Bedside Commode Laboratory Results WBC 5.48 k/cumm (4.4-10.8) 07/08/18 07:05 RBC 3.79 m/cumm (4.00-5.20) L 07/08/18 07:05 Hgb 11.4 g/dL (12.0-15.5) L 07/08/18 07:05 Hct 35.8 % (36.0-46.0) L 07/08/18 07:05 MCV 94.5 fL (80-95) 07/08/18 07:05 MCH 30.1 pg (27.0-33.0) 07/08/18 07:05 MCHC 31.8 g/dL (32.0-36.0) L 07/08/18 07:05 RDW 13.8 % (11.7-14.6) 07/08/18 07:05 Plt Count 218 x1000/uL (130-400) 07/08/18 07:05 MPV 11.1 fL (8.0-11.0) H 07/08/18 07:05 Immature Gran % 0.4 07/08/18 07:05 Neutrophils % 48.8 07/08/18 07:05 Lymphocytes % 35.4 07/08/18 07:05 Monocytes % 9.5 07/08/18 07:05 Eosinophils % 5.7 07/08/18 07:05 Basophils % 0.2 07/08/18 07:05 Absolute Neutrophils 2.68 k/cumm (1.2-6.7) 07/08/18 07:05 Absolute Lymphocytes 1.94 k/cumm (1.2-3.4) 07/08/18 07:05 Absolute Monocytes 0.52 k/cumm (0.11-0.7) 07/08/18 07:05 Absolute Eosinophils 0.31 k/cumm (0.0-0.7) 07/08/18 07:05 Absolute Basophils 0.01 k/cumm (0.0-0.2) 07/08/18 07:05 Differential Comment Agrees w/ instrument 06/29/18 06:45 RBC Morphology Normal 06/29/18 06:45 Sodium 143 mmol/L (136-145) 07/08/18 07:05 Potassium 3.6 mmol/L (3.5-5.1) 07/08/18 07:05 Chloride 109 mmol/L (98-107) H 07/08/18 07:05 Carbon Dioxide 25.8 mmol/L (21.0-32.0) 07/08/18 07:05 Anion Gap 8.2 mmol/L (3-11) 07/08/18 07:05 BUN 4 mg/dL (7-18) L 07/08/18 07:05 Creatinine 0.59 mg/dL (0.55-1.02) 07/08/18 07:05 Estimated GFR/1.73 m2 >= 60.00 (mL/min/1.73m2) 07/08/18 07:05 Glucose 192 mg/dL (70-100) H 07/08/18 07:05 Calcium 8.0 mg/dL (8.5-10.1) L 07/08/18 07:05 Magnesium 1.5 mg/dL (1.8-2.4) L 07/08/18 07:05 Total Bilirubin 0.5 mg/dL (0.2-1.0) 06/25/18 18:15 AST 28 U/L (15-37) 06/25/18 18:15 ALT 24 U/L (12-78) 06/25/18 18:15 Alkaline Phosphatase 72 U/L (46-116) 06/25/18 18:15 Troponin I < 0.02 ng/mL (0.00-0.06) 06/26/18 08:22 Total Protein 6.5 g/dL (6.4-8.2) 06/25/18 18:15 Albumin 3.0 g/dL (3.4-5.0) L 06/25/18 18:15 Vancomycin Trough 18.0 ug/mL (10.0-20.0) 07/04/18 05:20
[2018-07-08] MEDS: Patient's Own Medication 1 EACH MISC PEG (18:29)
[2018-07-08] MEDS: clonazePAM 0.5 MG TAB UD (21:09)
[2018-07-08] MEDS: Simvastatin 20 MG TAB UD (21:09)
[2018-07-09] VITALS (7 sets, daily range): BP systolic 135–152; BP diastolic 68–83; PULSE 69–80; RESP 18–20; TEMP 36.2–36.9; O2SAT 93–95
[2018-07-09] MEDS: Acetaminophen Solution 650 MG/20.3 ML CUP PO ×3 (03:15→22:41)
[2018-07-09] MEDS: Insulin Aspart 300 UNITS/3 ML PEN SC ×4 (05:35→23:56)
[2018-07-09] MEDS: Levothyroxine 112 MCG TAB UD (06:04)
[2018-07-09] MEDS: Normal Saline 1,000 ML 75 ML IV (06:37)
[2018-07-09 07:44] LABS: Abs Immature Grans 0.03 k/cumm (0.0-0.09); Absolute Basophil Count 0.03 k/cumm (0.0-0.2); Absolute Eosinophil Count 0.28 k/cumm (0.0-0.7); Absolute Lymphocyte Count 1.94 k/cumm (1.2-3.4); Absolute Monocyte Count 0.51 k/cumm (0.11-0.7); Absolute Neutrophil Count 2.38 k/cumm (1.2-6.7); Basophils % 0.6; Eosinophils % 5.4; HCT 34.9 % (36.0-46.0); HGB 11.2 g/dL (12.0-15.5); Immature Grans % 0.6; Lymphocytes % 37.5; Mean Corp. HGB Concentration 32.1 g/dL (32.0-36.0); Mean Corpuscular Hemoglobin 30.4 pg (27.0-33.0); Mean Corpuscular Volume 94.8 fL (80-95); Mean Platelet Volume 11.3 fL (8.0-11.0); Monocytes % 9.9; Platelet Count 223 x1000/uL (130-400); RBC 3.68 m/cumm (4.00-5.20); RBC Distribution Width 13.8 % (11.7-14.6); White Blood Cell Count 5.17 k/cumm (4.4-10.8)
[2018-07-09 07:55] LABS: Anion Gap 5.9 mmol/L (3-11); BUN 4 mg/dL (7-18); CO2 30.1 mmol/L (21.0-32.0); Calcium 8.1 mg/dL (8.5-10.1); Chloride 108 mmol/L (98-107); Glucose 199 mg/dL (70-100); Magnesium 1.8 mg/dL (1.8-2.4); Potassium 3.8 mmol/L (3.5-5.1); Sodium 144 mmol/L (136-145)
[2018-07-09] MEDS: Triamcinolone 0.1% CR 15 GM TUBE TP (09:46)
[2018-07-09] MEDS: Potassium Chloride Liquid 20 MEQ PKT PO (09:47)
[2018-07-09] MEDS: Enoxaparin 40 MG/0.4 ML SYR SC (09:47)
[2018-07-09] MEDS: Normal Saline Flush 10 ML SYR IVP (09:47)
[2018-07-09] MEDS: Escitalopram 10 MG TAB 30 MG UD (09:47)
[2018-07-09] MEDS: Pantoprazole 40 MG VIAL IVP (09:47)
[2018-07-09] MEDS: Bacitracin 1 PACKET TP ×2 (09:47→19:42)
[2018-07-09] MEDS: Propranolol 20 MG TAB NG ×3 (09:48→19:42)
[2018-07-09] MEDS: Magnesium Oxide 400 MG TAB NG ×2 (09:48→19:42)
[2018-07-09] MEDS: Aspirin 81 MG CHEW UD (09:48)
[2018-07-09] MEDS: clonazePAM 0.5 MG TAB 0.25 MG UD (09:48)
[2018-07-09] MEDS: Magnesium Oxide 400 MG TAB PO (09:48)
--- NOTE | 2018-07-09 10:39 | CMPROGNOTE_ITS ---
Care Management Progress Note S/O: Philomena continues to have large residuals with her tube feedings; per RNCC Torri-no record of bolus feedings beginning yesterday-discharge dependent on toleration-CM voiced concern regarding progress. PASARR step 2 pending determination by PASARR coordinator-awaiting response from PASARR coordinator as this is also delaying discharge. Philomena was lying in bed, talking with two nurses when CM attempted to meet with her. CM will continue to follow. A:Philomena is a 72 year old female admitted with a diagnosis of failure to thrive. She was recently hospitalized for aspiration pneumonia and dysphagia. P: Philomena will discharge to [facility] once PASARR Coordinator assessment and tube feedings scheduled with success. CM will continue to provide support to the patient, family, care team and discharge planning.
--- NOTE | 2018-07-09 10:58 | PTTR_ITS ---
Date of service: 07/09/18 Time of Service: 10:54 PT Notes 07/09/18 SUBJECTIVE: Philomena noting fatigued in LE's during gait. She requires motivation to participate in PT. OBJECTIVE: Seated in recliner. Agreeable to PT. TRANSFERS Sit to stand: Min A Stand to sit: Min A with cues Sit to supine: Max A GAIT Device: FWW Weight bearing: Full Assist: CGA Distance: 70' Deviation: Cues for increased stride length THEREX: Light LE strengthening in supine. See flow sheet. ASSESSMENT: Pt appears to be more fatigued today compared to the last few days and she tolerates decrease in gait distance today. No LOB during gait although requires cues for hand placment in avoid flopping to the bed or chair with transfers. PLAN: Continue current POC progressing toward's established goals. Treatment time: 20 minutes [id number] Georgie Vargas, COMMUNICATIONS INTERN
--- NOTE | 2018-07-09 13:41 | W.PM.PROGNOT ---
Date of Service Date of service: 07/09/18 Time of Service: 13:41 Assessment and Plan (1) Dysphagia, unspecified: Current visit: No Status: Chronic Patient appears to have Failure to Thrive at home - appeared dehydrated and unable to tolerate oral intake. She improved with IV Hydration from a mental status standpoint, but with failed swallow eval. COLST Form reviewed on initial day after admission with noted 'no feeding tube'. Mrs. Adames had indicated that she wanted 'everything done' initially when discussing her condition, then discussed not pursuing a feeding tube the following day. There was then an in-depth discussion of care with patient and her sister who acts as her caregiver, and they were given time to discuss this. Ms. Adames eventually decided on pursuing a Feeding Tube. Surgery was consulted, and procedure was performed on 06/29. Unfortunately the patient's Palliative care provider was not available for consultation during this period. Currently supplying home meds via Tube, tube feeds and free water. Plan is for continued titration of tube feeds to 4-5 boluses daily, then placement to a group home per patient's wishes. Nutrition consult in place. Of note, continues to appear mildly volume overloaded. Will discontinue IVFs and administer small dose of Furosemide. Qualifiers: Dysphagia type: unspecified Qualified Code(s): R13.10 - Dysphagia, unspecified (2) Ileus: Current visit: Yes Status: Acute Bowel movements recorded - appear loose but patient is on tube feeds. Continue to avoid Narcotics, and no Reglan given history of Drug induced Tardive Dyskinesia. Continue to monitor patient's Tube Feed residuals and bowel function. (3) Atrial flutter: Current visit: Yes Status: Chronic New diagnosis last hospitalization, with patient in NSR. ECHO obtained last visit and essentially unremarkable. Already on BB - change to PO short-acting formulation for ease of administration through feeding tube. Discussed risks of anticoagulation previously given patient's history of Tardive Dyskinesia, Ambulatory Dysfunction, and multiple prior falls. Will continue to hold off anticoagulation - ultimately may not be a good candidate for anticoagulation. (4) Type 2 diabetes mellitus: Current visit: No Status: Chronic Previously on basal insulin, held last hospitalization in setting of hypoglycemia and decreased oral intake. Patient's blood sugars had remained in the 80-100's even when eating. Continue with sliding scale coverage and monitor blood sugars. Currently NPO but On Tube Feeds. Continue to monitor, and reinitiate basal insulin if warranted in the future. (5) Hypothyroidism: Current visit: No Status: Chronic Continue replacement therapy. (6) Hypertension: Current visit: No Status: Chronic Continue BB therapy. Qualifiers: Hypertension type: essential hypertension Qualified Code(s): I10 - Essential (primary) hypertension (7) Schizophrenia: Current visit: Yes Status: Chronic Noted - appears stable. 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 Continue Valbenazine. (9) DVT prophylaxis: Current visit: Yes Status: Chronic SC Lovenox. Also on PPI therapy for GI Prophylaxis. (10) Advance directive discussed with patient: Current visit: No Status: Chronic DNR/DNI. Subjective Interval history since last seen: 72 year old woman with a prior history of Schizophrenia, Bipolar Disorder, and Tardive Dyskinesia, admitted from [facility] Emergency Department on 06/25 with a diagnosis of Failure to Thrive. Ms. Adames a prior history of Bipolar disorder, Schizophrenia, Tardive Dyskinesia, and prior episodes of psychosis. Her other diagnosis include Hypothyroidism, HTN, dyslipidemia, DM, GERD, and ARMAND intolerant of CPAP. She also has a history of ambulatory dysfunction and dysphagia. The patient was just hospitalized here from 06/09-06/14 for treatment of Pneumonia and dysphagia. She also had a new onset of Atrial Flutter during that hospitalization, and a work-up for a presumed facial droop was negative, including MRI/MRA of the brain, Carotid Ultrasound, and an ECHO. Following treatment she was discharged in vastly improved condition, able to tolerate a modified diet and ambulating well with the assistance of a walker with Physical Therapy. She was discharged home to the care of her sister, with Home Health that included Visiting Nursing. She however became progressively weak and unable to tolerate oral feedings or medications, and was brought back for reevaluation. Work-up in the ED included essentially unremarkable labs, Urinalysis, CT of the head, and XRay of the chest. She was referred for admission for further evaluation and treatment. Ms. Adames remains verbal and appropriate, remains NPO, but now receiving Tube Feeds after successful PEG Tube placement on 06/29. She was treated for potential HCAP vs. Aspiration Pneumonia based on an episode of fever on 07/01, with CXR showing linear atelectasis. She also developed Ileus, but now reportedly moving her bowels. No overnight events reported. Remains afebrile. Exam Narrative Exam Narrative: General: Patient appears comfortable, pleasant, awake and alert, NAD. Appears tremulous with b/l UE tremors, lip smacking, and abnormal tongue movements. Neck: Supple CV: Regular, nontachycardic, S1S2, No rubs, murmurs, or gallops. Pulmonary: Continued bibasilar crackles, no rhonchi or wheezing on exam. Abdomen: Bowel Sounds present but slightly hypoactive, soft, nontender, nondistended Vascular: lower extremity edema noted Psych: Normal mood and affect. Objective Objective Clinical Data: Abnormal lab results 07/09/18 07/09/18 Range/Units 07:10 07:10 RBC 3.68 L (4.00-5.20) m/cumm Hgb 11.2 L (12.0-15.5) g/dL Hct 34.9 L (36.0-46.0) % MPV 11.3 H (8.0-11.0) fL Chloride 108 H (98-107) mmol/L BUN 4 L (7-18) mg/dL Glucose 199 H (70-100) mg/dL Calcium 8.1 L (8.5-10.1) mg/dL Vital Signs Temperature 36.7 C 07/09/18 07:10 Temperature Source Tympanic 07/09/18 07:10 Pulse 69 07/09/18 07:10 Pulse Rhythm Regular 07/09/18 10:04 Pulse 89 06/25/18 19:01 Respiratory Rate 18 07/09/18 07:10 Respiratory Effort Non-Labored 07/09/18 10:04 Respiratory Depth Normal 07/09/18 10:04 Respiratory Pattern Normal 07/09/18 10:04 Blood Pressure 137/68 07/09/18 07:10 Blood Pressure Mean 88 06/25/18 19:01 Pulse Oximetry 93 L 07/09/18 10:00 Respiratory End-tidal CO2 17 06/29/18 13:28 Oxygen Delivery Method Room Air 07/09/18 10:00 Oxygen Flow Rate 0 07/09/18 10:00 Pain Level 0 07/09/18 07:10 Comment 07/08/18 06:00 Intake & Output 07/08/18 07/09/18 07/09/18 23:59 11:59 23:59 Intake Total 999 918.75 / 918.75 Output Total 1430 / 3295 1225 / 1225 Balance -430 / -1285 -306.25 / -306.25 Weight 93.5 kg Intake: IV 999 858.75 / 858.75 Intake, Tube Feeding Amount 60 / 60 Output: Urine 1275 / 3125 999 Output, Residual 155 / 170 225 / 225 Other: Urine Color Yellow Yellow Urine Appearance Clear Clear Urine Odor Normal Stool Size Moderate Small Stool Characteristics Soft Soft Liquid Brown Brown Voiding Methods Bedside Commode Bedside Commode Laboratory Results WBC 5.17 k/cumm (4.4-10.8) 07/09/18 07:10 RBC 3.68 m/cumm (4.00-5.20) L 07/09/18 07:10 Hgb 11.2 g/dL (12.0-15.5) L 07/09/18 07:10 Hct 34.9 % (36.0-46.0) L 07/09/18 07:10 MCV 94.8 fL (80-95) 07/09/18 07:10 MCH 30.4 pg (27.0-33.0) 07/09/18 07:10 MCHC 32.1 g/dL (32.0-36.0) 07/09/18 07:10 RDW 13.8 % (11.7-14.6) 07/09/18 07:10 Plt Count 223 x1000/uL (130-400) 07/09/18 07:10 MPV 11.3 fL (8.0-11.0) H 07/09/18 07:10 Immature Gran % 0.6 07/09/18 07:10 Neutrophils % 46.0 07/09/18 07:10 Lymphocytes % 37.5 07/09/18 07:10 Monocytes % 9.9 07/09/18 07:10 Eosinophils % 5.4 07/09/18 07:10 Basophils % 0.6 07/09/18 07:10 Absolute Neutrophils 2.38 k/cumm (1.2-6.7) 07/09/18 07:10 Absolute Lymphocytes 1.94 k/cumm (1.2-3.4) 07/09/18 07:10 Absolute Monocytes 0.51 k/cumm (0.11-0.7) 07/09/18 07:10 Absolute Eosinophils 0.28 k/cumm (0.0-0.7) 07/09/18 07:10 Absolute Basophils 0.03 k/cumm (0.0-0.2) 07/09/18 07:10 Differential Comment Agrees w/ instrument 06/29/18 06:45 RBC Morphology Normal 06/29/18 06:45 Sodium 144 mmol/L (136-145) 07/09/18 07:10 Potassium 3.8 mmol/L (3.5-5.1) 07/09/18 07:10 Chloride 108 mmol/L (98-107) H 07/09/18 07:10 Carbon Dioxide 30.1 mmol/L (21.0-32.0) 07/09/18 07:10 Anion Gap 5.9 mmol/L (3-11) 07/09/18 07:10 BUN 4 mg/dL (7-18) L 07/09/18 07:10 Creatinine 0.70 mg/dL (0.55-1.02) 07/09/18 07:10 Estimated GFR/1.73 m2 >= 60.00 (mL/min/1.73m2) 07/09/18 07:10 Glucose 199 mg/dL (70-100) H 07/09/18 07:10 Calcium 8.1 mg/dL (8.5-10.1) L 07/09/18 07:10 Magnesium 1.8 mg/dL (1.8-2.4) 07/09/18 07:10 Total Bilirubin 0.5 mg/dL (0.2-1.0) 06/25/18 18:15 AST 28 U/L (15-37) 06/25/18 18:15 ALT 24 U/L (12-78) 06/25/18 18:15 Alkaline Phosphatase 72 U/L (46-116) 06/25/18 18:15 Troponin I < 0.02 ng/mL (0.00-0.06) 06/26/18 08:22 Total Protein 6.5 g/dL (6.4-8.2) 06/25/18 18:15 Albumin 3.0 g/dL (3.4-5.0) L 06/25/18 18:15 Vancomycin Trough 18.0 ug/mL (10.0-20.0) 07/04/18 05:20
[2018-07-09] MEDS: Furosemide 40 MG/4 ML VIAL IVP (14:44)
[2018-07-09] MEDS: Patient's Own Medication 1 EACH MISC PEG (18:24)
--- NOTE | 2018-07-09 19:36 | W.NUTRFU ---
Date of service: 07/09/18 Time of Service: 19:36 Nutritional Follow up NOTE: Recommendations for bolus feeds: Spoke with RN and suggested holding continuous feeds as of the afternoon and start a bolus feeding schedule at 2000h today. Osmolite 1.2 gracie was chosen for the feeding as it has the same nutrient content as Jevity 1.2 gracie but it does not have fiber. My thoughts were that she may have less residual with a feeding without fiber as it will have a shorter transit time. Bolus feeding regimen recommendations as follows: 240 ml bolus of Osmolite 1.2 gracie, six times per day. Possible times could be 0600, 0800, 1100, 1400, 1700, 2000. She will also need free water boluses to equal at least 1200 ml/day which could be in 5 divided boluses of 240 ml. Another option would be 120 ml pre and post feedings. Will monitor tolerance to bolus feedings. Will work to transition to larger boluses and fewer feeding if possible;ideally four feedings per day to be more consistent with natural eating patterns. Will evaluate her nutrition care plan ongoing and adjust as needed. Time Spent in Nutritional Counseling and Treatment: REBECCA
[2018-07-09] MEDS: clonazePAM 0.5 MG TAB UD (22:41)
[2018-07-09] MEDS: Simvastatin 20 MG TAB UD (22:41)
[2018-07-10] VITALS: BP 106/65; PULSE 64; RESP 20; TEMP 36.3; O2SAT 96
[2018-07-10 04:10] VITALS: BP 144/74; PULSE 70; RESP 18; TEMP 36.4; O2SAT 94
[2018-07-10] MEDS: Levothyroxine 112 MCG TAB UD (05:35)
[2018-07-10] MEDS: Acetaminophen Solution 650 MG/20.3 ML CUP PO ×2 (06:26→14:49)
[2018-07-10 07:06] LABS: Abs Immature Grans 0.02 k/cumm (0.0-0.09); Absolute Basophil Count 0.03 k/cumm (0.0-0.2); Absolute Eosinophil Count 0.38 k/cumm (0.0-0.7); Absolute Lymphocyte Count 2.25 k/cumm (1.2-3.4); Absolute Monocyte Count 0.57 k/cumm (0.11-0.7); Absolute Neutrophil Count 2.96 k/cumm (1.2-6.7); Basophils % 0.5; Eosinophils % 6.1; HCT 39.2 % (36.0-46.0); HGB 12.8 g/dL (12.0-15.5); Immature Grans % 0.3; Lymphocytes % 36.2; Mean Corp. HGB Concentration 32.7 g/dL (32.0-36.0); Mean Corpuscular Hemoglobin 30.5 pg (27.0-33.0); Mean Corpuscular Volume 93.3 fL (80-95); Mean Platelet Volume 11.1 fL (8.0-11.0); Monocytes % 9.2; Neutrophils % 47.7; Platelet Count 284 x1000/uL (130-400); RBC Distribution Width 13.9 % (11.7-14.6); White Blood Cell Count 6.21 k/cumm (4.4-10.8)
[2018-07-10 07:21] LABS: BUN 5 mg/dL (7-18); CREATININE 0.67 mg/dL (0.55-1.02); Calcium 8.7 mg/dL (8.5-10.1); Chloride 106 mmol/L (98-107); Glucose 217 mg/dL (70-100); Magnesium 1.9 mg/dL (1.8-2.4); Potassium 3.2 mmol/L (3.5-5.1); Sodium 144 mmol/L (136-145)
[2018-07-10 07:30] VITALS: BP 135/78; PULSE 73; RESP 18; TEMP 36.2; O2SAT 94
[2018-07-10] MEDS: Enoxaparin 40 MG/0.4 ML SYR SC (08:33)
[2018-07-10] MEDS: Pantoprazole 40 MG VIAL IVP (08:34)
[2018-07-10] MEDS: Escitalopram 10 MG TAB 30 MG UD (08:35)
[2018-07-10] MEDS: Normal Saline Flush 10 ML SYR IVP ×2 (08:35→14:49)
[2018-07-10] MEDS: Aspirin 81 MG CHEW UD (08:36)
[2018-07-10] MEDS: Propranolol 20 MG TAB NG ×3 (08:36→21:26)
[2018-07-10] MEDS: Magnesium Oxide 400 MG TAB NG ×2 (08:37→21:25)
[2018-07-10] MEDS: Bacitracin 1 PACKET TP ×2 (08:37→21:26)
--- NOTE | 2018-07-10 10:26 | PT.INNT ---
Date of service: 07/10/18 Time of Service: 10:26 PT Notes 07/10/18 Refused x 2 today. Second refusal pt fell asleep talking with me. Nursing aware. Georgie Vargas, LOSS PREVENTION OPERATIONS MANAGER
[2018-07-10] MEDS: Triamcinolone 0.1% CR 15 GM TUBE TP (10:34)
[2018-07-10] MEDS: Magnesium Oxide 400 MG TAB PO (10:35)
[2018-07-10] MEDS: Potassium Chloride 20 MEQ TABCR 40 MEQ PO ×2 (10:35→15:26)
[2018-07-10 11:15] VITALS: BP 120/75; PULSE 61; RESP 18; TEMP 36.4; O2SAT 96
[2018-07-10] MEDS: Insulin Aspart 300 UNITS/3 ML PEN SC ×2 (12:25→18:07)
--- NOTE | 2018-07-10 12:33 | PDOC.CMPRO ---
- If Service Date Differs Date of service: 07/10/18 Time of Service: 12:33 Care Management Progress Note S/O:Philomena remains in good spirts. Philomena is tolerating bolus feeds per report with low residuals. Bolus feeds would be the goal if she continues to tolerate anticipate she will be ready for discharge to [facility] once the [facility] determination is complete. PASARR step 2 pending determination by PASARR coordinator-awaiting response from PASARR coordinator as this is also delaying discharge.CM will continue to follow. A:Philomena is a 72 year old female admitted with a diagnosis of failure to thrive. She was recently hospitalized for aspiration pneumonia and dysphagia. P: Philomena will discharge to [facility] once PAS[facility] Coordinator assessment is complete. Anticipate she will be discharged to [facility] re[facility] on Wednesday. CM will continue to provide support to the patient, family, care team and discharge planning.
--- NOTE | 2018-07-10 14:53 | W.PM.PROGNOT ---
Date of Service Date of service: 07/10/18 Time of Service: 14:53 Assessment and Plan (1) Dysphagia, unspecified: Current visit: No Status: Chronic Patient appears to have Failure to Thrive at home - appeared dehydrated and unable to tolerate oral intake. She improved with IV Hydration from a mental status standpoint, but with failed swallow eval. COLST Form reviewed on initial day after admission with noted 'no feeding tube'. Mrs. Adames had indicated that she wanted 'everything done' initially when discussing her condition, then discussed not pursuing a feeding tube the following day. There was then an in-depth discussion of care with patient and her sister who acts as her caregiver, and they were given time to discuss this. Ms. Adames eventually decided on pursuing a Feeding Tube. Surgery was consulted, and procedure was performed on 06/29. Unfortunately the patient's Palliative care provider was not available for consultation during this period. Currently supplying home meds via Tube, tube feeds and free water. Plan is for continued titration of tube feeds to 4-5 boluses daily, then placement to a snf per patient's wishes. Nutrition consult in place. Currently with improvement in residuals. Of note, continues to appear mildly volume overloaded. Discontinued IVFs - will administer small dose of Furosemide again today. Qualifiers: Dysphagia type: unspecified Qualified Code(s): R13.10 - Dysphagia, unspecified (2) Ileus: Current visit: Yes Status: Acute Bowel movements recorded - appear loose but patient is on tube feeds. Continue to avoid Narcotics, and no Reglan given history of Drug induced Tardive Dyskinesia. Continue to monitor patient's Tube Feed residuals and bowel function. Appears to be improving. (3) Atrial flutter: Current visit: Yes Status: Chronic New diagnosis last hospitalization, with patient in NSR. ECHO obtained last visit and essentially unremarkable. Already on BB - change to PO short-acting formulation for ease of administration through feeding tube. Discussed risks of anticoagulation previously given patient's history of Tardive Dyskinesia, Ambulatory Dysfunction, and multiple prior falls. Will continue to hold off anticoagulation - ultimately may not be a good candidate for anticoagulation. (4) Type 2 diabetes mellitus: Current visit: No Status: Chronic Previously on basal insulin, held last hospitalization in setting of hypoglycemia and decreased oral intake. Patient's blood sugars had remained in the 80-100's even when eating. Continue with sliding scale coverage and monitor blood sugars. Currently NPO but On Tube Feeds, with blood sugars in the 150-200's. Continue to monitor, check accuchecks, and reinitiate basal insulin if warranted in the future. (5) Hypothyroidism: Current visit: No Status: Chronic Continue replacement therapy. (6) Hypertension: Current visit: No Status: Chronic Continue BB therapy. Qualifiers: Hypertension type: essential hypertension Qualified Code(s): I10 - Essential (primary) hypertension (7) Schizophrenia: Current visit: Yes Status: Chronic Noted - appears stable. 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 Continue Valbenazine. (9) DVT prophylaxis: Current visit: Yes Status: Chronic SC Lovenox. Also on PPI therapy for GI Prophylaxis. (10) Advance directive discussed with patient: Current visit: No Status: Chronic DNR/DNI. Subjective Interval history since last seen: 72 year old woman with a prior history of Schizophrenia, Bipolar Disorder, and Tardive Dyskinesia, admitted from [facility] Emergency Department on 06/25 with a diagnosis of Failure to Thrive. Ms. Adames a prior history of Bipolar disorder, Schizophrenia, Tardive Dyskinesia, and prior episodes of psychosis. Her other diagnosis include Hypothyroidism, HTN, dyslipidemia, DM, GERD, and ARMAND intolerant of CPAP. She also has a history of ambulatory dysfunction and dysphagia. The patient was just hospitalized here from 06/09-06/14 for treatment of Pneumonia and dysphagia. She also had a new onset of Atrial Flutter during that hospitalization, and a work-up for a presumed facial droop was negative, including MRI/MRA of the brain, Carotid Ultrasound, and an ECHO. Following treatment she was discharged in vastly improved condition, able to tolerate a modified diet and ambulating well with the assistance of a walker with Physical Therapy. She was discharged home to the care of her sister, with Home Health that included Visiting Nursing. She however became progressively weak and unable to tolerate oral feedings or medications, and was brought back for reevaluation. Work-up in the ED included essentially unremarkable labs, Urinalysis, CT of the head, and XRay of the chest. She was referred for admission for further evaluation and treatment. Ms. Adames remains verbal and appropriate, remains NPO, but now receiving Tube Feeds after successful PEG Tube placement on 06/29. She was treated for potential HCAP vs. Aspiration Pneumonia based on an episode of fever on 07/01, with CXR showing linear atelectasis. She also developed an Ileus, but now reportedly moving her bowels. Her Tube feed residuals are reportedly improving and decreasing today. No overnight events reported. Remains afebrile. Exam Narrative Exam Narrative: General: Patient appears comfortable, pleasant, awake and alert, NAD. Appears tremulous with b/l UE tremors, lip smacking, and abnormal tongue movements. Neck: Supple CV: Regular, nontachycardic, S1S2, No rubs, murmurs, or gallops. Pulmonary: Continued bibasilar crackles, no rhonchi or wheezing on exam. Abdomen: Bowel Sounds present but slightly hypoactive, soft, nontender, nondistended Vascular: lower extremity edema noted Psych: Normal mood and affect. Objective Objective Clinical Data: Abnormal lab results 07/10/18 07/10/18 Range/Units 06:45 06:45 MPV 11.1 H (8.0-11.0) fL Potassium 3.2 L (3.5-5.1) mmol/L BUN 5 L (7-18) mg/dL Glucose 217 H (70-100) mg/dL Vital Signs Temperature 36.4 C L 07/10/18 11:15 Temperature Source Tympanic 07/10/18 11:15 Pulse 61 07/10/18 11:15 Pulse Rhythm Regular 07/10/18 10:20 Pulse 89 06/25/18 19:01 Respiratory Rate 18 07/10/18 11:15 Respiratory Effort Non-Labored 07/10/18 10:20 Respiratory Depth Normal 07/10/18 10:20 Respiratory Pattern Normal 07/10/18 10:20 Blood Pressure 120/75 07/10/18 11:15 Blood Pressure Mean 88 06/25/18 19:01 Pulse Oximetry 96 07/10/18 11:15 Respiratory End-tidal CO2 17 06/29/18 13:28 Oxygen Delivery Method Room Air 07/10/18 11:15 Oxygen Flow Rate 0 07/10/18 11:15 Pain Level 0 07/10/18 11:15 Comment 07/10/18 04:10 Intake & Output 07/09/18 07/10/18 07/10/18 23:59 11:59 23:59 Intake Total 791.25 / 1710.00 480 / 720 240 / 720 Output Total 3740 / 4965 1755 / 2315 560 / 2315 Balance -2948.75 / -3255.00 -1275 / -1595 -320 / -1595 Weight 91.8 kg Intake: IV 551.25 / 1410.00 Intake, Tube Feeding Amount 240 / 300 480 / 720 240 / 720 Output: Urine 3450 / 4450 1650 / 2150 500 / 2150 Output, Residual 290 / 515 105 / 165 60 / 165 Other: Urine Color Yellow Yellow Yellow Urine Appearance Clear Clear Clear Urine Odor Normal Normal Stool Size Smear Small Moderate Stool Characteristics Liquid Soft Soft Brown Brown Brown Voiding Methods Bedside Commode Bedside Commode Laboratory Results WBC 6.21 k/cumm (4.4-10.8) 07/10/18 06:45 RBC 4.20 m/cumm (4.00-5.20) 07/10/18 06:45 Hgb 12.8 g/dL (12.0-15.5) 07/10/18 06:45 Hct 39.2 % (36.0-46.0) 07/10/18 06:45 MCV 93.3 fL (80-95) 07/10/18 06:45 MCH 30.5 pg (27.0-33.0) 07/10/18 06:45 MCHC 32.7 g/dL (32.0-36.0) 07/10/18 06:45 RDW 13.9 % (11.7-14.6) 07/10/18 06:45 Plt Count 284 x1000/uL (130-400) 07/10/18 06:45 MPV 11.1 fL (8.0-11.0) H 07/10/18 06:45 Immature Gran % 0.3 07/10/18 06:45 Neutrophils % 47.7 07/10/18 06:45 Lymphocytes % 36.2 07/10/18 06:45 Monocytes % 9.2 07/10/18 06:45 Eosinophils % 6.1 07/10/18 06:45 Basophils % 0.5 07/10/18 06:45 Absolute Neutrophils 2.96 k/cumm (1.2-6.7) 07/10/18 06:45 Absolute Lymphocytes 2.25 k/cumm (1.2-3.4) 07/10/18 06:45 Absolute Monocytes 0.57 k/cumm (0.11-0.7) 07/10/18 06:45 Absolute Eosinophils 0.38 k/cumm (0.0-0.7) 07/10/18 06:45 Absolute Basophils 0.03 k/cumm (0.0-0.2) 07/10/18 06:45 Differential Comment Agrees w/ instrument 06/29/18 06:45 RBC Morphology Normal 06/29/18 06:45 Sodium 144 mmol/L (136-145) 07/10/18 06:45 Potassium 3.2 mmol/L (3.5-5.1) L 07/10/18 06:45 Chloride 106 mmol/L (98-107) 07/10/18 06:45 Carbon Dioxide 32.0 mmol/L (21.0-32.0) 07/10/18 06:45 Anion Gap 6.0 mmol/L (3-11) 07/10/18 06:45 BUN 5 mg/dL (7-18) L 07/10/18 06:45 Creatinine 0.67 mg/dL (0.55-1.02) 07/10/18 06:45 Estimated GFR/1.73 m2 >= 60.00 (mL/min/1.73m2) 07/10/18 06:45 Glucose 217 mg/dL (70-100) H 07/10/18 06:45 Calcium 8.7 mg/dL (8.5-10.1) 07/10/18 06:45 Magnesium 1.9 mg/dL (1.8-2.4) 07/10/18 06:45 Total Bilirubin 0.5 mg/dL (0.2-1.0) 06/25/18 18:15 AST 28 U/L (15-37) 06/25/18 18:15 ALT 24 U/L (12-78) 06/25/18 18:15 Alkaline Phosphatase 72 U/L (46-116) 06/25/18 18:15 Troponin I < 0.02 ng/mL (0.00-0.06) 06/26/18 08:22 Total Protein 6.5 g/dL (6.4-8.2) 06/25/18 18:15 Albumin 3.0 g/dL (3.4-5.0) L 06/25/18 18:15 Vancomycin Trough 18.0 ug/mL (10.0-20.0) 07/04/18 05:20
[2018-07-10] MEDS: Furosemide 20 MG/2 ML VIAL IVP (15:28)
[2018-07-10 15:45] VITALS: BP 153/68; PULSE 79; RESP 19; TEMP 35.9; O2SAT 96
[2018-07-10] MEDS: Patient's Own Medication 1 EACH MISC PEG (18:08)
[2018-07-10] MEDS: clonazePAM 0.5 MG TAB UD (21:25)
[2018-07-10] MEDS: Simvastatin 20 MG TAB UD (21:47)
[2018-07-11 00:05] VITALS: BP 154/75; PULSE 77; RESP 18; TEMP 36.3; O2SAT 96
[2018-07-11] MEDS: Insulin Aspart 300 UNITS/3 ML PEN SC ×4 (00:26→18:00)
[2018-07-11] MEDS: Acetaminophen Solution 650 MG/20.3 ML CUP PO ×3 (01:07→16:36)
[2018-07-11 03:30] VITALS: BP 134/75; PULSE 76; RESP 20; TEMP 36.2; O2SAT 93
[2018-07-11] MEDS: Levothyroxine 112 MCG TAB UD (05:22)
[2018-07-11 07:18] LABS: Abs Immature Grans 0.01 k/cumm (0.0-0.09); Absolute Basophil Count 0.02 k/cumm (0.0-0.2); Absolute Eosinophil Count 0.34 k/cumm (0.0-0.7); Absolute Lymphocyte Count 2.03 k/cumm (1.2-3.4); Absolute Monocyte Count 0.48 k/cumm (0.11-0.7); Basophils % 0.3; Eosinophils % 5.2; HCT 38.8 % (36.0-46.0); HGB 12.6 g/dL (12.0-15.5); Immature Grans % 0.2; Lymphocytes % 31.3; Mean Corp. HGB Concentration 32.5 g/dL (32.0-36.0); Mean Corpuscular Hemoglobin 30.7 pg (27.0-33.0); Mean Corpuscular Volume 94.4 fL (80-95); Mean Platelet Volume 11.1 fL (8.0-11.0); Monocytes % 7.4; Neutrophils % 55.6; Platelet Count 282 x1000/uL (130-400); RBC 4.11 m/cumm (4.00-5.20); RBC Distribution Width 14.1 % (11.7-14.6); White Blood Cell Count 6.48 k/cumm (4.4-10.8)
[2018-07-11 07:31] LABS: Anion Gap 6.4 mmol/L (3-11); BUN 6 mg/dL (7-18); CO2 31.6 mmol/L (21.0-32.0); CREATININE 0.72 mg/dL (0.55-1.02); Calcium 8.7 mg/dL (8.5-10.1); Chloride 104 mmol/L (98-107); Glucose 213 mg/dL (70-100); Potassium 3.5 mmol/L (3.5-5.1); Sodium 142 mmol/L (136-145)
[2018-07-11] MEDS: Pantoprazole 40 MG VIAL IVP (08:46)
[2018-07-11] MEDS: Enoxaparin 40 MG/0.4 ML SYR SC (08:46)
[2018-07-11] MEDS: Normal Saline Flush 10 ML SYR IVP (08:47)
[2018-07-11] MEDS: Triamcinolone 0.1% CR 15 GM TUBE TP (08:47)
[2018-07-11] MEDS: Aspirin 81 MG CHEW UD (08:48)
[2018-07-11] MEDS: Magnesium Oxide 400 MG TAB NG ×2 (08:48→20:41)
[2018-07-11] MEDS: Propranolol 20 MG TAB NG ×3 (08:48→20:41)
[2018-07-11] MEDS: Escitalopram 10 MG TAB 30 MG UD (08:48)
[2018-07-11] MEDS: Bacitracin 1 PACKET TP ×2 (08:49→20:41)
[2018-07-11] MEDS: Potassium Chloride 20 MEQ TABCR 40 MEQ UD (10:11)
[2018-07-11 11:06] VITALS: BP 121/73; PULSE 70; RESP 18; TEMP 36.1; O2SAT 96
--- NOTE | 2018-07-11 11:16 | W.PM.PROGNOT ---
Date of Service Date of service: 07/11/18 Time of Service: 11:16 Assessment and Plan (1) Dysphagia, unspecified: Current visit: No Status: Chronic Patient appears to have Failure to Thrive at home - appeared dehydrated and unable to tolerate oral intake. She improved with IV Hydration from a mental status standpoint, but with failed swallow eval. COLST Form reviewed on initial day after admission with noted 'no feeding tube'. Mrs. Adames had indicated that she wanted 'everything done' initially when discussing her condition, then discussed not pursuing a feeding tube the following day. There was then an in-depth discussion of care with patient and her sister who acts as her caregiver, and they were given time to discuss this. Ms. Adames eventually decided on pursuing a Feeding Tube. Surgery was consulted, and procedure was performed on 06/29. Unfortunately the patient's Palliative care provider was not available for consultation during this period. Currently supplying home meds via Tube, tube feeds and free water. Plan is for continued titration of tube feeds to 4-5 boluses daily, then placement to a fci per patient's wishes. Nutrition consult in place. Currently with improvement in residuals. Of note, continues to appear mildly volume overloaded. Discontinued IVFs - will administer small dose of Furosemide again today. Qualifiers: Dysphagia type: unspecified Qualified Code(s): R13.10 - Dysphagia, unspecified (2) Ileus: Current visit: Yes Status: Acute Bowel movements recorded - appear loose but patient is on tube feeds. Continue to avoid Narcotics, and no Reglan given history of Drug induced Tardive Dyskinesia. Continue to monitor patient's Tube Feed residuals and bowel function. Appears to be improving. (3) Atrial flutter: Current visit: Yes Status: Chronic New diagnosis last hospitalization, with patient in NSR. ECHO obtained last visit and essentially unremarkable. Already on BB - change to PO short-acting formulation for ease of administration through feeding tube. Discussed risks of anticoagulation previously given patient's history of Tardive Dyskinesia, Ambulatory Dysfunction, and multiple prior falls. Will continue to hold off anticoagulation - ultimately may not be a good candidate for anticoagulation. (4) Type 2 diabetes mellitus: Current visit: No Status: Chronic Previously on basal insulin, held last hospitalization in setting of hypoglycemia and decreased oral intake. Patient's blood sugars had remained in the 80-100's even when eating. Continue with sliding scale coverage and monitor blood sugars. Currently NPO but On Tube Feeds, with blood sugars in the 150-200's. Continue to monitor, check accuchecks, and reinitiate basal insulin if warranted in the future. (5) Hypothyroidism: Current visit: No Status: Chronic Continue replacement therapy. (6) Hypertension: Current visit: No Status: Chronic Continue BB therapy. Qualifiers: Hypertension type: essential hypertension Qualified Code(s): I10 - Essential (primary) hypertension (7) Schizophrenia: Current visit: Yes Status: Chronic Noted - appears stable. 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 Continue Valbenazine. (9) DVT prophylaxis: Current visit: Yes Status: Chronic SC Lovenox. Also on PPI therapy for GI Prophylaxis. (10) Advance directive discussed with patient: Current visit: No Status: Chronic DNR/DNI. Subjective Interval history since last seen: 72 year old woman with a prior history of Schizophrenia, Bipolar Disorder, and Tardive Dyskinesia, admitted from [facility] Emergency Department on 06/25 with a diagnosis of Failure to Thrive. Ms. Adames a prior history of Bipolar disorder, Schizophrenia, Tardive Dyskinesia, and prior episodes of psychosis. Her other diagnosis include Hypothyroidism, HTN, dyslipidemia, DM, GERD, and ARMAND intolerant of CPAP. She also has a history of ambulatory dysfunction and dysphagia. The patient was just hospitalized here from 06/09-06/14 for treatment of Pneumonia and dysphagia. She also had a new onset of Atrial Flutter during that hospitalization, and a work-up for a presumed facial droop was negative, including MRI/MRA of the brain, Carotid Ultrasound, and an ECHO. Following treatment she was discharged in vastly improved condition, able to tolerate a modified diet and ambulating well with the assistance of a walker with Physical Therapy. She was discharged home to the care of her sister, with Home Health that included Visiting Nursing. She however became progressively weak and unable to tolerate oral feedings or medications, and was brought back for reevaluation. Work-up in the ED included essentially unremarkable labs, Urinalysis, CT of the head, and XRay of the chest. She was referred for admission for further evaluation and treatment. Ms. Adames remains verbal and appropriate, remains NPO, but now receiving Tube Feeds after successful PEG Tube placement on 06/29. She was treated for potential HCAP vs. Aspiration Pneumonia based on an episode of fever on 07/01, with CXR showing linear atelectasis. She also developed an Ileus, but now reportedly moving her bowels. Her Tube feed residuals are reportedly improving and decreasing, and the patient has been tolerating bolus feeds with improved and decreasing residuals. No overnight events reported. Remains afebrile. Exam Narrative Exam Narrative: General: Patient appears comfortable, pleasant, awake and alert, NAD. Appears tremulous with b/l UE tremors, lip smacking, and abnormal tongue movements. Neck: Supple CV: Regular, nontachycardic, S1S2, No rubs, murmurs, or gallops. Pulmonary: Continued bibasilar crackles but improved, no rhonchi or wheezing on exam. Abdomen: Bowel Sounds present, soft, nontender, nondistended Vascular: lower extremity edema noted Psych: Normal mood and affect. Objective Objective Clinical Data: Abnormal lab results 07/11/18 07/11/18 Range/Units 07:06 07:06 MPV 11.1 H (8.0-11.0) fL BUN 6 L (7-18) mg/dL Glucose 213 H (70-100) mg/dL Vital Signs Temperature 36.1 C L 07/11/18 11:06 Temperature Source Tympanic 07/11/18 11:06 Pulse 70 07/11/18 11:06 Pulse Rhythm Regular 07/11/18 10:37 Pulse 89 06/25/18 19:01 Respiratory Rate 18 07/11/18 11:06 Respiratory Effort 07/11/18 10:37 Respiratory Depth Shallow 07/11/18 10:37 Respiratory Pattern Normal 07/11/18 10:37 Blood Pressure 121/73 07/11/18 11:06 Blood Pressure Mean 88 06/25/18 19:01 Pulse Oximetry 96 07/11/18 11:06 Respiratory End-tidal CO2 17 06/29/18 13:28 Oxygen Delivery Method Room Air 07/11/18 11:06 Oxygen Flow Rate 0 07/11/18 11:06 Pain Level 0 07/11/18 11:06 Comment 07/10/18 04:10 Intake & Output 07/10/18 07/10/18 07/11/18 11:59 23:59 11:59 Intake Total 480 / 1440 960 / 1440 480 / 480 Output Total 1755 / 5955 4200 / 5955 1040 / 1040 Balance -1275 / -4515 -3240 / -4515 -560 / -560 Weight 91.8 kg 87.9 kg Intake: Intake, Tube Feeding Amount 480 / 1440 960 / 1440 480 / 480 Output: Urine 1650 / 5600 3950 / 5600 900 / 900 Output, Residual 105 / 355 250 / 355 140 / 140 Other: Urine Color Yellow Yellow Yellow Urine Appearance Clear Clear Clear Urine Odor Normal None Normal Comment unknown amount. Stool Size Small Moderate Small Stool Characteristics Soft Liquid Liquid Brown Brown Voiding Methods Bedside Commode Bedside Commode Bedside Commode Laboratory Results WBC 6.48 k/cumm (4.4-10.8) 07/11/18 07:06 RBC 4.11 m/cumm (4.00-5.20) 07/11/18 07:06 Hgb 12.6 g/dL (12.0-15.5) 07/11/18 07:06 Hct 38.8 % (36.0-46.0) 07/11/18 07:06 MCV 94.4 fL (80-95) 07/11/18 07:06 MCH 30.7 pg (27.0-33.0) 07/11/18 07:06 MCHC 32.5 g/dL (32.0-36.0) 07/11/18 07:06 RDW 14.1 % (11.7-14.6) 07/11/18 07:06 Plt Count 282 x1000/uL (130-400) 07/11/18 07:06 MPV 11.1 fL (8.0-11.0) H 07/11/18 07:06 Immature Gran % 0.2 07/11/18 07:06 Neutrophils % 55.6 07/11/18 07:06 Lymphocytes % 31.3 07/11/18 07:06 Monocytes % 7.4 07/11/18 07:06 Eosinophils % 5.2 07/11/18 07:06 Basophils % 0.3 07/11/18 07:06 Absolute Neutrophils 3.60 k/cumm (1.2-6.7) 07/11/18 07:06 Absolute Lymphocytes 2.03 k/cumm (1.2-3.4) 07/11/18 07:06 Absolute Monocytes 0.48 k/cumm (0.11-0.7) 07/11/18 07:06 Absolute Eosinophils 0.34 k/cumm (0.0-0.7) 07/11/18 07:06 Absolute Basophils 0.02 k/cumm (0.0-0.2) 07/11/18 07:06 Differential Comment Agrees w/ instrument 06/29/18 06:45 RBC Morphology Normal 06/29/18 06:45 Sodium 142 mmol/L (136-145) 07/11/18 07:06 Potassium 3.5 mmol/L (3.5-5.1) 07/11/18 07:06 Chloride 104 mmol/L (98-107) 07/11/18 07:06 Carbon Dioxide 31.6 mmol/L (21.0-32.0) 07/11/18 07:06 Anion Gap 6.4 mmol/L (3-11) 07/11/18 07:06 BUN 6 mg/dL (7-18) L 07/11/18 07:06 Creatinine 0.72 mg/dL (0.55-1.02) 07/11/18 07:06 Estimated GFR/1.73 m2 >= 60.00 (mL/min/1.73m2) 07/11/18 07:06 Glucose 213 mg/dL (70-100) H 07/11/18 07:06 Calcium 8.7 mg/dL (8.5-10.1) 07/11/18 07:06 Magnesium 2.0 mg/dL (1.8-2.4) 07/11/18 07:06 Total Bilirubin 0.5 mg/dL (0.2-1.0) 06/25/18 18:15 AST 28 U/L (15-37) 06/25/18 18:15 ALT 24 U/L (12-78) 06/25/18 18:15 Alkaline Phosphatase 72 U/L (46-116) 06/25/18 18:15 Troponin I < 0.02 ng/mL (0.00-0.06) 06/26/18 08:22 Total Protein 6.5 g/dL (6.4-8.2) 06/25/18 18:15 Albumin 3.0 g/dL (3.4-5.0) L 06/25/18 18:15 Vancomycin Trough 18.0 ug/mL (10.0-20.0) 07/04/18 05:20
--- NOTE | 2018-07-11 11:41 | PT.INTREAT ---
Date of service: 07/11/18 Time of Service: 10:34 PT Notes Inpatient Physical Therapy Treatment Note Inpatient Physical Therapy Treatment Note [facility] Date: 07/11/2018 PRECAUTIONS: Fall. Standard. SUBJECTIVE: Patient reports that she did not sleep well last night. She denies nausea, dizziness, and vomitting prior to today's session. She reports no chest pain nor headache throughout PT session. Patient states that she was able to recover well from last therapy session without undue fatigue. Denies abdominal pain. OBJECTIVE: Patient seen resting in bed. TEDS on bilateral legs. Telemetry now off. Ortiz catheter off. No IV lines seen. PAIN: 0/10 BED MOBILITY/TRANSFERS Rolling L/R: Minimal assist Supine-sit: Minimal assist Sit-supine: Minimal assist Sit-stand: CGA Stand-sit: CGA Bed-Chair: CGA Chair-bed: CGA GAIT Assistive Device: FWW Weight bearing: FWB Assist: SBA Distance: 150 feet +20 feet Deviation: Patient able to increase step height in length with verbal cues. No demonstrating increased gait velocity and eve. No report of dizziness and fatigue after activity. THEREX: Patient completed standing level exercises as indicated in exercise flow sheet without undue fatigue, nor significant increase in pain, and without increase dyspnea. STAIRS: Patient tolerated three 4-inch steps twice and two 6-inch steps twice while holding onto bilateral rails with assist using step to/step through gait pattern with pain report of 0/10. Verbal cueing provided for gait technique, posture, activity pacing, and deep breathing activity. ASSESSMENT: Patient demonstrates good tolerance to physical therapy session with observed improvement in terms of pain level, activity tolerance, self-efficacy/confidence, and participation level. PLAN: Patient to progress with mobility level, functional performance, and knowledge of HEP to achieve previously established goals. Patient will discharge to SNF tomorrow per field case manager. TREATMENT CODE/TIME: 21927 23 minutes, 92629 10 minutes, beginning at 10:34 AM.
--- NOTE | 2018-07-11 11:49 | PTTR_ITS ---
Date of service: 07/11/18 Time of Service: 10:34 PT Notes Inpatient Physical Therapy Treatment Note Inpatient Physical Therapy Treatment Note [facility] Date: 07/11/2018 PRECAUTIONS: Fall. Standard. SUBJECTIVE: Patient reports that she did not sleep well last night. She denies nausea, dizziness, and vomitting prior to today's session. She reports no chest pain nor headache throughout PT session. Patient states that she was able to recover well from last therapy session without undue fatigue. Denies abdominal pain. OBJECTIVE: Patient seen resting in bed. TEDS on bilateral legs. Telemetry now off. Ortiz catheter off. No IV lines seen. PAIN: 0/10 BED MOBILITY/TRANSFERS Rolling L/R: Minimal assist Supine-sit: Minimal assist Sit-supine: Minimal assist Sit-stand: CGA Stand-sit: CGA Bed-Chair: CGA Chair-bed: CGA GAIT Assistive Device: FWW Weight bearing: FWB Assist: SBA Distance: 150 feet +20 feet Deviation: Patient able to increase step height in length with verbal cues. No demonstrating increased gait velocity and eve. No report of dizziness and fatigue after activity. THEREX: Patient completed standing level exercises as indicated in exercise flow sheet without undue fatigue, nor significant increase in pain, and without increase dyspnea. STAIRS: Patient tolerated three 4-inch steps twice and two 6-inch steps twice wh ile holding onto bilateral rails with assist using step to/step through gait pattern with pain report of 0/10. Verbal cueing provided for gait technique, posture, activity pacing, and deep breathing activity. ASSESSMENT: Patient demonstrates good tolerance to physical therapy session with observed improvement in terms of pain level, activity tolerance, self- efficacy/confidence, and participation level. PLAN: Patient to progress with mobility level, functional performance, and knowledge of HEP to achieve previously established goals. Patient will discharge to SNF tomorrow per case management coordinator. TREATMENT CODE/TIME: 48465 23 minutes, 46209 10 minutes, beginning at 10:34 AM.
[2018-07-11] MEDS: Furosemide 20 MG/2 ML VIAL IVP (12:23)
--- NOTE | 2018-07-11 12:38 | INPN_ITS ---
Date of service: 07/05/18 PT Notes Inpatient Physical Therapy Progress Note Date: 07/05/18 Dates of Service: 06/26/2018-07/03/2018 Precautions: Fall. Standard. Subjective: Philomena is agreeable to PT treatment today. She denies pain and dizziness but reports fatigue. Objective: General Observation: Sitting in chair with IV to right upper extremity. Patient has a resting tremor of the upper extremities and jaw. PEG in place. Patient denies abdominal pain. Mental Status: A and O with severe dysarthria Pain: 0/10 ROM: Right Upper Extremity: Shoulder flexion allows 135 degrees actively. Elbow and wrist motion are WFL. Left Upper Extremity: Shoulder flexion allows 135 degrees actively. Elbow and wrist motion are WFL. Right Lower Extremity: WFL Left Lower Extremity: WFL Strength: Right Upper Extremity: Shoulder flexion 4-/5. Biceps 3+/5. Medical Care Manager is weak but equal, with exacerbation of tremor with gripping activities Left Upper Extremity: Shoulder flexion 4-/5. Biceps 3+/5. Medical Care Manager is weak but equal, with exacerbation of tremor with gripping activities Right Lower Extremity: Flexion 3/5. Quads 4-/5. Ankle dorsiflexion 4-/5. Left Lower Extremity: Flexion 3/5. Quads 4-/5. Ankle dorsiflexion 4-/5. Bed Mobility/Transfers: Stand: Min assist Stand to sit: Min assist Bed to chair: Mod assist with FW W Gait: Patient ambulates 100 feet with FWW with CGA of PT, cues for advancement of the lower extremities. Patient has freezing episodes during turning, requiring max verbal and tactile cues. Balance: Static Sitting: Good Dynamic Sitting: Fair Static Standing: Fair Dynamic Standing: Fair THERAEX: Patient tolerated sit<>stand from edge of bed, heel raises, mini squats, and marching in place without undue discomfort and report of dizziness. Assessment: Patient is a 72 year old female referred to physical therapy services with the diagnosis of progressive weakness. Patient presents with clinical signs and symptoms consistent with diagnosis, with marketed deficits and independence with transfers and ambulation today. Patient has been receiving assistance from her sister and [id number] in their home, although given the severity of her parkinsonian symptoms, she will likely require a higher level of care going forward. Anticipate need for placement in usp facility or long-term care facility once medically stable for ongoing strengthening and rehabilitation. She currently demonstrates the following impairment level findings: 1. Decreased upper extremity strength 2. Decreased lower extremity strength 3. Freezing episodes 4. Resting tremor Impairments are contributing to the following functional limitations: 1. Unable to independently transfer 2. Unable to independently ambulate 3. Unable to manage stairs 4. Requirement of significant cues for assisted ambulation to overcome freezing episodes Patient is assessed as a Moderate 98714 complexity based on the following: History: 72-year-old female admitted for progressive weakness in the presence of multiple medical comorbidities. She has significant mobility deficits, largely related to her parkinsonian symptoms, with difficulty initiating movements and significant upper and lower extremity strength deficits. Examination: Functional limitations as noted above Presentation: Evolving Decision Making: Moderate complexity Goals: Goals X1 week 1. Supine-Sit: Supervision 2. Sit-Supine: Supervision 3. Sit-Stand: Supervision 4. Stand-Sit: Supervision 5. Bed-Chair: Min assist with FWW 6. Chair-Bed: Min assist with FW W 7. Gait: Able to ambulate 25 feet with min assist, FW W Plan of Care/Treatment Plan: 1x/day, 7 days/week x 1 week. Plan of care has been reviewed with the HEADER OPERATOR providing the service under Physical Therapy direction. Initiate Physical Therapy intervention for strengthening, bed mobility, transfers, gait, stairs, balance training, use of assistive device. DISCHARGE RECOMMENDATIONS: Patient will highly benefit from SNF placement to achieve highest functional mobility level, progress AD use, and facilitate ultimate goal of return to home at highest mobility level. TREATMENT CODE/TIME: 26 minutes (64640) beginning at 10:09 am.
--- NOTE | 2018-07-11 14:30 | PDOC.CMPRO ---
- If Service Date Differs Date of service: 07/11/18 Time of Service: 14:30 Care Management Progress Note S/O:Philomena was seen ambulating in the halls with PT. She was smiling and conversed with CM. She states she is feeling better and is tolerating her tube feedings better than last week. She continues to receive bolus feedings with low residuals. The PASARR coordinator has determined that a level 2 PASARR will not be required. CM communicated this information to the senior director creative services at [facility] A bed will be available tomorrow morning. A:Philomena is a 72 year old female admitted with a diagnosis of failure to thrive. She was recently hospitalized for aspiration pneumonia and dysphagia. P: Philomena will discharge to [facility] tomorrow morning. Transport has been arranged with the wheelchair van at 11:00 am. A level 2 PASARR is not required. CM will continue to provide support to the patient, family, care team and discharge planning.
--- NOTE | 2018-07-11 14:35 | CMPROGNOTE_ITS ---
- If Service Date Differs Date of service: 07/11/18 Time of Service: 14:30 Care Management Progress Note S/O:Philomena was seen ambulating in the halls with PT. She was smiling and conversed with CM. She states she is feeling better and is tolerating her tube feedings better than last week. She continues to receive bolus feedings with low residuals. The PASARR coordinator has determined that a level 2 PASARR will not be required. CM communicated this information to the director regulatory affairs [facility] A [facility] will be available tomorrow morning. A:Philomena is a 72 year old female admitted with a diagnosis of failure to thrive. She was recently hospitalized for aspiration pneumonia and dysphagia. P: Philomena will discharge to [facility] tomorrow morning. Transport has been arranged with the wheelchair van at 11:00 am. A level 2 PASARR is not required. CM will continue to provide support to the patient, family, care team and discharge planning.
[2018-07-11 15:30] VITALS: BP 133/67; PULSE 81; RESP 20; TEMP 36.7; O2SAT 94
[2018-07-11] MEDS: Potassium Chloride 10 MEQ TABCR UD (16:34)
[2018-07-11] MEDS: Patient's Own Medication 1 EACH MISC PEG (18:02)
[2018-07-11 19:41] VITALS: BP 117/70; PULSE 78; RESP 18; TEMP 36.4; O2SAT 95
[2018-07-11] MEDS: Simvastatin 20 MG TAB UD (21:35)
[2018-07-11] MEDS: clonazePAM 0.5 MG TAB UD (21:35)
[2018-07-12] VITALS (8 sets, daily range): BP systolic 97–147; BP diastolic 56–73; PULSE 68–85; RESP 19–24; TEMP 36.3–37.2; O2SAT 92–97
[2018-07-12] MEDS: Insulin Aspart 300 UNITS/3 ML PEN SC ×4 (00:18→18:16)
[2018-07-12] MEDS: Levothyroxine 112 MCG TAB UD (06:01)
[2018-07-12 07:28] LABS: Abs Immature Grans 0.02 k/cumm (0.0-0.09); Absolute Basophil Count 0.02 k/cumm (0.0-0.2); Absolute Eosinophil Count 0.37 k/cumm (0.0-0.7); Absolute Lymphocyte Count 1.93 k/cumm (1.2-3.4); Absolute Neutrophil Count 3.91 k/cumm (1.2-6.7); Basophils % 0.3; Eosinophils % 5.5; HCT 40.5 % (36.0-46.0); HGB 13.1 g/dL (12.0-15.5); Immature Grans % 0.3; Lymphocytes % 28.6; Mean Corp. HGB Concentration 32.3 g/dL (32.0-36.0); Mean Corpuscular Hemoglobin 30.3 pg (27.0-33.0); Mean Corpuscular Volume 93.8 fL (80-95); Mean Platelet Volume 11.4 fL (8.0-11.0); Monocytes % 7.4; Neutrophils % 57.9; Platelet Count 312 x1000/uL (130-400); RBC 4.32 m/cumm (4.00-5.20); RBC Distribution Width 14.2 % (11.7-14.6); White Blood Cell Count 6.75 k/cumm (4.4-10.8)
[2018-07-12 07:44] LABS: Anion Gap 8.3 mmol/L (3-11); BUN 7 mg/dL (7-18); CO2 28.7 mmol/L (21.0-32.0); CREATININE 0.65 mg/dL (0.55-1.02); Calcium 9.1 mg/dL (8.5-10.1); Chloride 102 mmol/L (98-107); Glucose 204 mg/dL (70-100); Magnesium 2.2 mg/dL (1.8-2.4); Potassium 3.9 mmol/L (3.5-5.1); Sodium 139 mmol/L (136-145)
[2018-07-12] MEDS: Acetaminophen Solution 650 MG/20.3 ML CUP PO ×2 (08:51→14:18)
[2018-07-12] MEDS: Pantoprazole 40 MG VIAL IVP (08:51)
[2018-07-12] MEDS: Bacitracin 1 PACKET TP ×2 (08:52→20:18)
[2018-07-12] MEDS: Escitalopram 10 MG TAB 30 MG UD (08:52)
[2018-07-12] MEDS: Aspirin 81 MG CHEW UD (08:53)
[2018-07-12] MEDS: Enoxaparin 40 MG/0.4 ML SYR SC (08:53)
[2018-07-12] MEDS: Normal Saline Flush 10 ML SYR IVP ×2 (08:54→15:30)
[2018-07-12] MEDS: Potassium Chloride 10 MEQ TABCR UD (10:41)
[2018-07-12] MEDS: Magnesium Oxide 400 MG TAB NG ×2 (10:42→20:18)
[2018-07-12] MEDS: Triamcinolone 0.1% CR 15 GM TUBE TP (10:54)
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
--- NOTE | 2018-07-12 12:28 | PDOC.CMPRO ---
- If Service Date Differs Date of service: 07/12/18 Time of Service: 12:28 Care Management Progress Note S/O:Philomena was [facility], however written confirmation about the PASARR has not been received. [facility] indicate that the report will be sent to [facility] Re[facility] tomorrow. Transport and transfer will be rescheduled for tomorrow afternoon. The reasons for the delay and change in plans were discussed with Philomena and her sister Chantal. Philomena voiced disappointment but said she understood. A:Philomena is a 72 year old female admitted with a diagnosis of failure to thrive. She was recently hospitalized for aspiration pneumonia and dysphagia. P: Philomena will discharge to [facility] tomorrow afternoon. Transport will be arranged with the wheelchair van. A level 2 PASARR is not required. Written confirmation of that fact will be sent by the [facility] Disabilities nurse tomorrow. CM will continue to provide support to the patient, family, care team and discharge planning.
--- NOTE | 2018-07-12 12:46 | CMPROGNOTE_ITS ---
- If Service Date Differs Date of service: 07/12/18 Time of Service: 12:28 Care Management Progress Note S/O:Philomen[facility], however written confirmation about the PASARR has not been received. Con[facility] with the Disabilities [facility] indicate that the report will be sent to [facility] tomorrow. Transport and transfer will be rescheduled for tomorrow afternoon. The reasons for the delay and change in plans were discussed with Philomena and her sister Chantal. Philomena voiced disappointment but said she understood. A:Philomena is a 72 year old female admitted with a diagnosis of failure to thrive. She was recently hospitalized for aspiration pneumonia and dysphagia. P: Philomena will discharge to [facility] tomorrow afternoon. Transport will be arranged with the wheelchair van. A level 2 PASARR is not required. Written confirmation of that fact will be sent by the [facility] Disabilities nurse tomorrow. CM will continue to provide support to the patient, family, care team and discharge planning.
[2018-07-12] MEDS: Propranolol 20 MG TAB NG ×2 (14:18→20:18)
--- NOTE | 2018-07-12 15:09 | PT.INTREAT ---
Date of service: 07/12/18 Time of Service: 15:10 PT Notes Inpatient Physical Therapy Treatment Note [facility] Date: 07/12/18 PRECAUTIONS: Fall SUBJECTIVE: Philomena is agreeable to participating in PT. OBJECTIVE: PAIN: No complaints of pain BED MOBILITY/TRANSFERS Sit-supine: Mod A Sit-stand: CGA Stand-sit: CGA GAIT Assistive Device: FWW Weight bearing: Full Assist: SBA Distance: 150' Deviation: Increased eve without cueing THEREX: Patient completed shoulder flexion and heel slide exercises in a supine position, as per flow sheet. ASSESSMENT: Patient tolerated session well without complaint. Patient would benefit from continued gait and transfer training, as well as strengthening for improved activity tolerance and mobility. PLAN: Continue with PT's POC TREATMENT CODE/TIME: Session 1: 30 minutes; [id number] x2
--- NOTE | 2018-07-12 18:03 | PT.INPN ---
Date of service: 07/12/18 PT Notes Inpatient Physical Therapy Progress Note Date: 07/11/18 Dates of Service: 07/04/2018-07/11/2018 Precautions: Fall. Standard. Subjective: Philomena is agreeable to PT treatment today. She denies pain, dizziness, and fatigue. She looks forward to going to [facility] and then to home when able. Objective: General Observation: Sitting in chair with IV to right upper extremity. Patient has a resting tremor of the upper extremities and jaw. PEG tube in place. Patient denies abdominal pain. Mental Status: A and O with severe dysarthria Pain: 0/10 ROM: Right Upper Extremity: Shoulder flexion allows 135 degrees actively. Elbow and wrist motion are WFL. Left Upper Extremity: Shoulder flexion allows 135 degrees actively. Elbow and wrist motion are WFL. Right Lower Extremity: WFL Left Lower Extremity: WFL Strength: Right Upper Extremity: Shoulder flexion 4-/5. Biceps 3+/5. Authorization Nurse is weak but equal, with exacerbation of tremor with gripping activities Left Upper Extremity: Shoulder flexion 4-/5. Biceps 3+/5. Authorization Nurse is weak but equal, with exacerbation of tremor with gripping activities Right Lower Extremity: Hip Flexion 3+/5. Quads 4-/5. Ankle dorsiflexion 4/5. Left Lower Extremity: Hip Flexion 3+/5. Quads 4-/5. Ankle dorsiflexion 4/5. Bed Mobility/Transfers: Sit to Stand: CGA Stand to sit: CGA Bed to chair: CGA with FWW Gait: Patient ambulates 150 feet with FWW with CGA of PT, cues for advancement of the lower extremities. Balance: Static Sitting: Good Dynamic Sitting: Good Static Standing: Fair Dynamic Standing: Fair Assessment: Patient is a 72 year old female referred to physical therapy services with the diagnosis of progressive weakness. Patient presents with clinical signs and symptoms consistent with diagnosis. Anticipate need for placement in penitentiary facility or long-term care facility once medically stable for ongoing strengthening and rehabilitation. She currently demonstrates the following impairment level findings: 1. Decreased upper extremity strength 2. Decreased lower extremity strength 3. Freezing episodes 4. Resting tremor Impairments are contributing to the following functional limitations: 1. Unable to independently transfer 2. Unable to independently ambulate 3. Unable to manage stairs 4. Requirement of significant cues for assisted ambulation to overcome freezing episodes Patient is assessed as a Moderate [id number] complexity based on the following: History: 72-year-old female admitted for progressive weakness in the presence of multiple medical comorbidities Examination: Functional limitations as noted above Presentation: Evolving Decision Making: Moderate complexity Goals: Goals X1 week 1. Supine-Sit: Supervision CONTINUE 2. Sit-Supine: Supervision CONTINUE 3. Sit-Stand: Supervision CONTINUE 4. Stand-Sit: Supervision CONTINUE 5. Bed-Chair: Min assist with FWW MET 6. Chair-Bed: Min assist with FW W MET 7. Gait: Able to ambulate 25 feet with min assist, FWW MET Plan of Care/Treatment Plan: 1x/day, 7 days/week x 1 week. Plan of care has been reviewed with the RISK CONTROL PRODUCT LIABILITY DIRECTOR providing the service under Physical Therapy direction. Initiate Physical Therapy intervention for strengthening, bed mobility, transfers, gait, stairs, balance training, use of assistive device. DISCHARGE RECOMMENDATIONS: Patient will highly benefit from SNF placement to achieve highest functional mobility level, progress AD use, and facilitate ultimate goal of return to home at highest mobility level. TREATMENT CODE/TIME: N/A
--- NOTE | 2018-07-12 18:12 | INPN_ITS ---
Date of service: 07/12/18 PT Notes Inpatient Physical Therapy Progress Note Date: 07/11/18 Dates of Service: 07/04/2018-07/11/2018 Precautions: Fall. Standard. Subjective: Philomena is agreeable to PT treatment today. She denies pain, dizziness, and fatigue. She looks forward to going to the [facility] tomorrow and then to home when able. Objective: General Observation: Sitting in chair with IV to right upper extremity. Patient has a resting tremor of the upper extremities and jaw. PEG tube in place. Patient denies abdominal pain. Mental Status: A and O with severe dysarthria Pain: 0/10 ROM: Right Upper Extremity: Shoulder flexion allows 135 degrees actively. Elbow and wrist motion are WFL. Left Upper Extremity: Shoulder flexion allows 135 degrees actively. Elbow and wrist motion are WFL. Right Lower Extremity: WFL Left Lower Extremity: WFL Strength: Right Upper Extremity: Shoulder flexion 4-/5. Biceps 3+/5. Software Developer Manager is weak but equal, with exacerbation of tremor with gripping activities Left Upper Extremity: Shoulder flexion 4-/5. Biceps 3+/5. Software Developer Manager is weak but equal, with exacerbation of tremor with gripping activities Right Lower Extremity: Hip Flexion 3+/5. Quads 4-/5. Ankle dorsiflexion 4/5. Left Lower Extremity: Hip Flexion 3+/5. Quads 4-/5. Ankle dorsiflexion 4/5. Bed Mobility/Transfers: Sit to Stand: CGA Stand to sit: CGA Bed to chair: CGA with FWW Gait: Patient ambulates 150 feet with FWW with CGA of PT, cues for advancement of the lower extremities. Balance: Static Sitting: Good Dynamic Sitting: Good Static Standing: Fair Dynamic Standing: Fair Assessment: Patient is a 72 year old female referred to physical therapy services with the diagnosis of progressive weakness. Patient presents with clinical signs and symptoms consistent with diagnosis. Anticipate need for placement in alf facility or long-term care facility once medically stable for ongoing strengthening and rehabilitation. She currently demonstrates the following impairment level findings: 1. Decreased upper extremity strength 2. Decreased lower extremity strength 3. Freezing episodes 4. Resting tremor Impairments are contributing to the following functional limitations: 1. Unable to independently transfer 2. Unable to independently ambulate 3. Unable to manage stairs 4. Requirement of significant cues for assisted ambulation to overcome freezing episodes Patient is assessed as a Moderate [id number] complexity based on the following: History: 72-year-old female admitted for progressive weakness in the presence of multiple medical comorbidities Examination: Functional limitations as noted above Presentation: Evolving Decision Making: Moderate complexity Goals: Goals X1 week 1. Supine-Sit: Supervision CONTINUE 2. Sit-Supine: Supervision CONTINUE 3. Sit-Stand: Supervision CONTINUE 4. Stand-Sit: Supervision CONTINUE 5. Bed-Chair: Min assist with FWW MET 6. Chair-Bed: Min assist with FW W MET 7. Gait: Able to ambulate 25 feet with min assist, FWW MET Plan of Care/Treatment Plan: 1x/day, 7 days/week x 1 week. Plan of care has been reviewed with the REGIONAL TRANSPORTATION MANAGER providing the service under Physical Therapy direction. Initiate Physical Therapy intervention for strengthening, bed mobility, transfers, gait, stairs, balance training, use of assistive device. DISCHARGE RECOMMENDATIONS: Patient will highly benefit from SNF placement to achieve highest functional mobility level, progress AD use, and facilitate ultimate goal of return to home at highest mobility level. TREATMENT CODE/TIME: N/A
[2018-07-12] MEDS: Patient's Own Medication 1 EACH MISC PEG (18:17)
[2018-07-12] MEDS: clonazePAM 0.5 MG TAB UD (22:43)
[2018-07-12] MEDS: Simvastatin 20 MG TAB UD (22:43)
[2018-07-13] MEDS: Insulin Aspart 300 UNITS/3 ML PEN SC ×3 (00:21→12:37)
[2018-07-13] MEDS: Acetaminophen Solution 650 MG/20.3 ML CUP PO (02:53)
[2018-07-13 03:40] VITALS: BP 123/83; PULSE 71; RESP 22; TEMP 36.5; O2SAT 94
[2018-07-13] MEDS: Levothyroxine 112 MCG TAB UD (05:59)
[2018-07-13 07:07] LABS: Abs Immature Grans 0.01 k/cumm (0.0-0.09); Absolute Basophil Count 0.04 k/cumm (0.0-0.2); Absolute Eosinophil Count 0.41 k/cumm (0.0-0.7); Absolute Lymphocyte Count 2.14 k/cumm (1.2-3.4); Absolute Monocyte Count 0.52 k/cumm (0.11-0.7); Absolute Neutrophil Count 3.29 k/cumm (1.2-6.7); Basophils % 0.6; Eosinophils % 6.4; HCT 40.4 % (36.0-46.0); Immature Grans % 0.2; Lymphocytes % 33.4; Mean Corp. HGB Concentration 32.2 g/dL (32.0-36.0); Mean Corpuscular Hemoglobin 30.3 pg (27.0-33.0); Mean Corpuscular Volume 94.2 fL (80-95); Mean Platelet Volume 11.2 fL (8.0-11.0); Monocytes % 8.1; Neutrophils % 51.3; Platelet Count 292 x1000/uL (130-400); RBC 4.29 m/cumm (4.00-5.20); White Blood Cell Count 6.41 k/cumm (4.4-10.8)
[2018-07-13 07:25] LABS: Anion Gap 8.9 mmol/L (3-11); BUN 10 mg/dL (7-18); CO2 29.1 mmol/L (21.0-32.0); CREATININE 0.67 mg/dL (0.55-1.02); Chloride 101 mmol/L (98-107); Glucose 189 mg/dL (70-100); Magnesium 2.1 mg/dL (1.8-2.4); Potassium 4.2 mmol/L (3.5-5.1); Sodium 139 mmol/L (136-145)
[2018-07-13] MEDS: Escitalopram 10 MG TAB 30 MG UD (07:42)
[2018-07-13] MEDS: Propranolol 20 MG TAB NG (07:42)
[2018-07-13] MEDS: Bacitracin 1 PACKET TP (07:42)
[2018-07-13] MEDS: Magnesium Oxide 400 MG TAB NG (07:42)
[2018-07-13] MEDS: Aspirin 81 MG CHEW UD (07:42)
[2018-07-13] MEDS: Enoxaparin 40 MG/0.4 ML SYR SC (07:43)
[2018-07-13 07:55] VITALS: BP 112/59; PULSE 65; RESP 21; TEMP 36.8; O2SAT 96
[2018-07-13] MEDS: Triamcinolone 0.1% CR 15 GM TUBE TP (08:30)
--- NOTE | 2018-07-13 10:09 | W.NUTRFU ---
Date of service: 07/13/18 Time of Service: 10:09 Nutritional Follow up NOTE: Ms. Adames is having increased residuals likely related to the frequency of her boluses and free water. It had been noted that she was fluid overloaded, so we can reduce her free water to 1000 ml/day and monitor for signs and symptoms of dehydration. Having worked in collaboration with PEPITO Conrad, would recommend the following taper of her bolus feeds and free water: Osmolite 1.2 gracie 360 ml bolus at 0800, 1200, 1700, and 2100. Free water 200 ml at 0800, 1200, 1700, and 2100 and Free water 100 ml at 0600 and 1400 Will continue to monitor her tolerance to feeding regimen and her progress. Will evaluate nutrition care plan ongoing and adjust as needed. Thank you for the consult. Time Spent in Nutritional Counseling and Treatment: REBECCA
--- NOTE | 2018-07-13 11:28 | W.PM.PROGNOT ---
Date of Service Date of service: 07/12/18 Time of Service: 11:28 Assessment and Plan (1) Dysphagia, unspecified: Current visit: No Status: Chronic Patient appears to have Failure to Thrive at home - appeared dehydrated and unable to tolerate oral intake. She improved with IV Hydration from a mental status standpoint, but with failed swallow eval. COLST Form reviewed on initial day after admission with noted 'no feeding tube'. Mrs. Adames had indicated that she wanted 'everything done' initially when discussing her condition, then discussed not pursuing a feeding tube the following day. There was then an in-depth discussion of care with patient and her sister who acts as her caregiver, and they were given time to discuss this. Ms. Adames eventually decided on pursuing a Feeding Tube. Surgery was consulted, and procedure was performed on 06/29. Unfortunately the patient's Palliative care provider was not available for consultation during this period. Currently supplying home meds via Tube, tube feeds and free water. Plan is for continued titration of tube feeds to 4-5 boluses daily, then placement to a alf per patient's wishes. Nutrition consult in place. Currently with improvement in residuals. Of note, continues to appear mildly volume overloaded but improved. Mildly hypotensive - will not administer Furosemide today. Qualifiers: Dysphagia type: unspecified Qualified Code(s): R13.10 - Dysphagia, unspecified (2) Ileus: Current visit: Yes Status: Acute Bowel movements recorded - appear loose but patient is on tube feeds. Continue to avoid Narcotics, and no Reglan given history of Drug induced Tardive Dyskinesia. Continue to monitor patient's Tube Feed residuals and bowel function. Appears to be improving. (3) Atrial flutter: Current visit: Yes Status: Chronic New diagnosis last hospitalization, with patient in NSR. ECHO obtained last visit and essentially unremarkable. Already on BB - change to PO short-acting formulation for ease of administration through feeding tube. Discussed risks of anticoagulation previously given patient's history of Tardive Dyskinesia, Ambulatory Dysfunction, and multiple prior falls. Will continue to hold off anticoagulation - ultimately may not be a good candidate for anticoagulation. (4) Type 2 diabetes mellitus: Current visit: No Status: Chronic Previously on basal insulin, held last hospitalization in setting of hypoglycemia and decreased oral intake. Patient's blood sugars had remained in the 80-100's even when eating. Continue with sliding scale coverage and monitor blood sugars. Currently NPO but On Tube Feeds, with blood sugars in the 150-200's. Continue to monitor, check accuchecks, and reinitiate basal insulin if warranted in the future. (5) Hypothyroidism: Current visit: No Status: Chronic Continue replacement therapy. (6) Hypertension: Current visit: No Status: Chronic Continue BB therapy. Qualifiers: Hypertension type: essential hypertension Qualified Code(s): I10 - Essential (primary) hypertension (7) Schizophrenia: Current visit: Yes Status: Chronic Noted - appears stable. 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 Continue Valbenazine. (9) Advance directive discussed with patient: Current visit: No Status: Chronic DNR/DNI. Subjective Interval history since last seen: 72 year old woman with a prior history of Schizophrenia, Bipolar Disorder, and Tardive Dyskinesia, admitted from [facility] Emergency Department on 06/25 with a diagnosis of Failure to Thrive. Ms. Adames a prior history of Bipolar disorder, Schizophrenia, Tardive Dyskinesia, and prior episodes of psychosis. Her other diagnosis include Hypothyroidism, HTN, dyslipidemia, DM, GERD, and ARMAND intolerant of CPAP. She also has a history of ambulatory dysfunction and dysphagia. The patient was just hospitalized here from 06/09-06/14 for treatment of Pneumonia and dysphagia. She also had a new onset of Atrial Flutter during that hospitalization, and a work-up for a presumed facial droop was negative, including MRI/MRA of the brain, Carotid Ultrasound, and an ECHO. Following treatment she was discharged in vastly improved condition, able to tolerate a modified diet and ambulating well with the assistance of a walker with Physical Therapy. She was discharged home to the care of her sister, with Home Health that included Visiting Nursing. She however became progressively weak and unable to tolerate oral feedings or medications, and was brought back for reevaluation. Work-up in the ED included essentially unremarkable labs, Urinalysis, CT of the head, and XRay of the chest. She was referred for admission for further evaluation and treatment. Ms. Adames remains verbal and appropriate, NPO, but now receiving Tube Feeds after successful PEG Tube placement on 06/29. She was treated for potential HCAP vs. Aspiration Pneumonia based on an episode of fever on 07/01, with CXR showing only linear atelectasis. She also developed an Ileus, but now reportedly moving her bowels. Her Tube feed residuals are reportedly improving and decreasing, and the patient has been tolerating bolus feeds with improved and decreasing residuals. No overnight events reported. Remains afebrile. Exam Narrative Exam Narrative: General: Patient appears comfortable, pleasant, awake and alert, NAD. Appears tremulous with b/l UE tremors, lip smacking, and abnormal tongue movements. Neck: Supple CV: Regular, nontachycardic, S1S2, No rubs, murmurs, or gallops. Pulmonary: Continued but improved bibasilar crackles, no rhonchi or wheezing on exam. Abdomen: Bowel Sounds present, soft, nontender, nondistended Vascular: lower extremity edema noted Psych: Normal mood and affect. Objective Objective Clinical Data: Abnormal lab results 07/13/18 07/13/18 Range/Units 06:50 06:50 MPV 11.2 H (8.0-11.0) fL Glucose 189 H (70-100) mg/dL Vital Signs Temperature 36.8 C 07/13/18 07:55 Temperature Source Tympanic 07/13/18 07:55 Pulse 65 07/13/18 07:55 Pulse Rhythm Regular 07/13/18 07:45 Pulse 89 06/25/18 19:01 Respiratory Rate 21 07/13/18 07:55 Respiratory Effort Non-Labored 07/13/18 07:45 Respiratory Depth Normal 07/13/18 07:45 Respiratory Pattern Normal 07/13/18 07:45 Blood Pressure 112/59 L 07/13/18 07:55 Blood Pressure Mean 88 06/25/18 19:01 Pulse Oximetry 96 07/13/18 07:55 Respiratory End-tidal CO2 17 06/29/18 13:28 Oxygen Delivery Method Room Air 07/13/18 07:55 Oxygen Flow Rate 0 07/13/18 07:55 Pain Level 4 07/11/18 16:36 Comment 07/10/18 04:10 Intake & Output 07/12/18 07/12/18 07/13/18 11:59 23:59 11:59 Intake Total 500 / 1500 1000 / 1500 360 / 360 Output Total 1730 / 3705 1975 / 3705 1350 / 1350 Balance -1230 / -2205 -975 / -2205 -990 / -990 Weight 87.7 kg 85.6 kg Intake: IV Intake, Tube Feeding Amount 480 / 1480 1000 / 1480 360 / 360 Output: Urine 1500 / 2850 1350 / 2850 1300 / 1300 Output, Residual 230 / 855 625 / 855 50 / 50 Other: Urine Color Yellow Yellow Yellow Urine Appearance Clear Clear Clear Urine Odor None Normal Normal Comment urine mixed with stool Stool Size Small Small Moderate Stool Characteristics Liquid Soft Soft Liquid Liquid Brown Brown Voiding Methods Bedside Commode Bedside Commode Bedside Commode Laboratory Results WBC 6.41 k/cumm (4.4-10.8) 07/13/18 06:50 RBC 4.29 m/cumm (4.00-5.20) 07/13/18 06:50 Hgb 13.0 g/dL (12.0-15.5) 07/13/18 06:50 Hct 40.4 % (36.0-46.0) 07/13/18 06:50 MCV 94.2 fL (80-95) 07/13/18 06:50 MCH 30.3 pg (27.0-33.0) 07/13/18 06:50 MCHC 32.2 g/dL (32.0-36.0) 07/13/18 06:50 RDW 14.0 % (11.7-14.6) 07/13/18 06:50 Plt Count 292 x1000/uL (130-400) 07/13/18 06:50 MPV 11.2 fL (8.0-11.0) H 07/13/18 06:50 Immature Gran % 0.2 07/13/18 06:50 Neutrophils % 51.3 07/13/18 06:50 Lymphocytes % 33.4 07/13/18 06:50 Monocytes % 8.1 07/13/18 06:50 Eosinophils % 6.4 07/13/18 06:50 Basophils % 0.6 07/13/18 06:50 Absolute Neutrophils 3.29 k/cumm (1.2-6.7) 07/13/18 06:50 Absolute Lymphocytes 2.14 k/cumm (1.2-3.4) 07/13/18 06:50 Absolute Monocytes 0.52 k/cumm (0.11-0.7) 07/13/18 06:50 Absolute Eosinophils 0.41 k/cumm (0.0-0.7) 07/13/18 06:50 Absolute Basophils 0.04 k/cumm (0.0-0.2) 07/13/18 06:50 Differential Comment Agrees w/ instrument 06/29/18 06:45 RBC Morphology Normal 06/29/18 06:45 Sodium 139 mmol/L (136-145) 07/13/18 06:50 Potassium 4.2 mmol/L (3.5-5.1) 07/13/18 06:50 Chloride 101 mmol/L (98-107) 07/13/18 06:50 Carbon Dioxide 29.1 mmol/L (21.0-32.0) 07/13/18 06:50 Anion Gap 8.9 mmol/L (3-11) 07/13/18 06:50 BUN 10 mg/dL (7-18) 07/13/18 06:50 Creatinine 0.67 mg/dL (0.55-1.02) 07/13/18 06:50 Estimated GFR/1.73 m2 >= 60.00 (mL/min/1.73m2) 07/13/18 06:50 Glucose 189 mg/dL (70-100) H 07/13/18 06:50 Calcium 9.0 mg/dL (8.5-10.1) 07/13/18 06:50 Magnesium 2.1 mg/dL (1.8-2.4) 07/13/18 06:50 Total Bilirubin 0.5 mg/dL (0.2-1.0) 06/25/18 18:15 AST 28 U/L (15-37) 06/25/18 18:15 ALT 24 U/L (12-78) 06/25/18 18:15 Alkaline Phosphatase 72 U/L (46-116) 06/25/18 18:15 Troponin I < 0.02 ng/mL (0.00-0.06) 06/26/18 08:22 Total Protein 6.5 g/dL (6.4-8.2) 06/25/18 18:15 Albumin 3.0 g/dL (3.4-5.0) L 06/25/18 18:15 Vancomycin Trough 18.0 ug/mL (10.0-20.0) 07/04/18 05:20
[2018-07-13 11:50] VITALS: BP 115/60; PULSE 68; RESP 21; TEMP 36.5; O2SAT 95
--- NOTE | 2018-07-13 13:56 | PDOC.CMDIS ---
- If Service Date Differs Date of service: 07/13/18 Time of Service: 13:56 LACE Index Scoring Tool - Questions: Length of Stay (in days): 14 or more Acuity (Admit via E.D.?): Yes Comorbidities: Diabetes w/o Complication E.D. Visits: 9 - Answers: Total Score: 15 Risk of Readmission: High Risk Care Management Discharge Reason for Hospitalization: Failure to Thrive Discharge Plan: Philomena is being discharged to [facility]. Follow up care will be provided by the facility.She will be transported by the wheelchair van from the facility. Patient/Family Education Needs: Discharge education, limitations, follow-up plan of care, Ask Me Three and disposition. Services Needed at Discharge: Nursing Home Facility, Transportation - MH Services (Omit if N/A) Current MH Services: [facility]
--- NOTE | 2018-07-13 14:06 | CMDISCH_ITS ---
- If Service Date Differs Date of service: 07/13/18 Time of Service: 13:56 LACE Index Scoring Tool - Questions: Length of Stay (in days): 14 or more Acuity (Admit via E.D.?): Yes Comorbidities: Diabetes w/o Complication E.D. Visits: 9 - Answers: Total Score: 15 Risk of Readmission: High Risk Care Management Discharge Reason for Hospitalization: Failure to Thrive Discharge Plan: Philomena is being discharged to [facility]. Follow up care will be provided by the facility.She will be transported by the wheelchair van from the facility. Patient/Family Education Needs: Discharge education, limitations, follow-up plan of care, Ask Me Three and disposition. Services Needed at Discharge: [facility] Facility, Transportation - MH Services (Omit if N/A) Current MH Services: [facility]
--- NOTE | 2018-07-14 10:55 | PT.INDS ---
Date of service: 07/13/18 PT Notes Inpatient Physical Therapy Discharge Summary Dates: 07/13/2018 Dates of Service: 06/26/2018 through 07/13/2018 This is a clinical summary of skilled PT services provided on the dates listed above. No charge was made in the completion of this documentation. Referring Doctor: Dr. Aquino PT Orders: PT CONSULT: Evaluate and treat for generalized weakness and deconditioning; poor ambulation and poor transfers Precautions: Fall, standard Patient Profile/Admitting Diagnosis: Patient admitted after presenting to the emergency room with family complaining of progressive weakness. She had a recent hospital stay, discharged 06/15/2018, after treatment for dysphagia and atrial flutter. She returned to her sister and yawggqy-ka-aex's home upon discharge. PMHX: Medical History Daniel's esophagus Chronic low back pain Depression with anxiety Development delay, borderline Dysphagia GERD Hyperlipidemia Hypertension Hypothyroidism Migraine headache without aura Obstructive sleep apnea on CPAP Osteoarthritis Osteoporosis Sensorineural hearing loss (bilateral) Tardive dyskinesia Type 2 Diabetes Mellitus Urgency incontinence Schizophrenia Social History/Home Situation: Philomena currently lives with her sister Chantal since February of last year who provides assistance with ADLs. Per last admission, sister had reported that Philomena goes to adult daycare via [employer] on a daily basis from Mondays through Fridays. At her sister's house, there are 4 steps to enter without rails but sister is able to provide minimal assistance to Philomena in and out of the house. Patient has had 3 falls the past 12 months. Equipment Owned/DME: Hospital bed, 4WW. Subjective: Philomena is agreeable to PT treatment today. She looks forward to transitioning to a SNF today. Objective: General Observation: Sitting on chair. No lines attached. Persistent tremor from Tardive Dyskinesia observed especially with mobility performance. Mental Status: A and O x 3, mild dysarthria noted Pain: Denies ROM: Right Upper Extremity: Shoulder flexion allows 135 degrees actively. Elbow and wrist motion are WFL. Left Upper Extremity: Shoulder flexion allows 135 degrees actively. Elbow and wrist motion are WFL. Right Lower Extremity: WFL Left Lower Extremity: WFL Strength: Right Upper Extremity: Shoulder flexion 4/5. Biceps 4/5. Pulmonologist is strong but equal Left Upper Extremity: Shoulder flexion 4-/5. Biceps 3+/5. Pulmonologist is strong but equal Right Lower Extremity: Hip Flexion 4-/5. Quads 4-/5. Ankle dorsiflexion 4/5. Left Lower Extremity: Hip Flexion 4-/5. Quads 4-/5. Ankle dorsiflexion 4/5. Bed Mobility/Transfers: Rollng CGA Supine to sit CGA Sit to supine CGA Sit to stand CGA Stand to sit CGA Bed to chair CGA with FWW Chair to bed CGA with FWW Gait: Patient ambulates 150 feet +20 feet feet with FWW with CGA with minimal cues needed for overall safety. Patient has no freezing episodes observed during turning and directional changes. Balance: Static Sitting: Good Dynamic Sitting: Good Static Standing: Fair Dynamic Standing: Fair Special Tests: Mobility Limitations Standardized Measure [facility] 6 clicks Basic Mobility Inpatient Short Form: Raw Score: 18 CMS Score: 47% deficit Assessment: Patient is a 72 year old female referred to physical therapy services with the diagnosis of progressive weakness. Patient presents with clinical signs and symptoms consistent with diagnosis, with marketed deficits and independence with transfers and ambulation today. Patient has been receiving assistance from her sister and hxoyqva-dn-fad in their home, although given the severity of her parkinsonian symptoms, she will likely require a higher level of care going forward. Anticipate need for placement in intermediate facility or long-term care facility once medically stable for ongoing strengthening and rehabilitation. She currently demonstrates the following impairment level findings: 1. Decreased upper extremity strength 2. Decreased lower extremity strength 3. Resting tremor Impairments are contributing to the following functional limitations: 1. Needs assistance with transfers 2. Needs assiatnce with bed mobility 3. Needs assistance with stair negotiation 4. Needs assiatnce with ambulation task performance Goals: Goals X1 week 1. Supine-Sit: Supervision NOT MET 2. Sit-Supine: Supervision NOT MET 3. Sit-Stand: Supervision NOT MET 4. Stand-Sit: Supervision NOT MET 5. Bed-Chair: Min assist with FWW NOT MET 6. Chair-Bed: Min assist with FWW NOT MET 7. Gait: Able to ambulate 25 feet with min assist, FWW NOT MET DISCHARGE RECOMMENDATIONS: [facility] for continued functional mobility training, gait and balance training, AD device progression, and caregiver/patient education/training. TREATMENT CODE/TIME: 53111 for 20 minutes beginning at 11:25 AM. Thank you for this referral. Rox Brown, PT, DPT, CLT [facility]
--- NOTE | 2018-07-14 11:17 | INDS_ITS ---
Date of service: 07/13/18 PT Notes Inpatient Physical Therapy Discharge Summary Dates: 07/13/2018 Dates of Service: 06/26/2018 through 07/13/2018 This is a clinical summary of skilled PT services provided on the dates listed above. No charge was made in the completion of this documentation. Referring Doctor: Dr. Aquino PT Orders: PT CONSULT: Evaluate and treat for generalized weakness and deconditioning; poor ambulation and poor transfers Precautions: Fall, standard Patient Profile/Admitting Diagnosis: Patient admitted after presenting to the emergency room with family complaining of progressive weakness. She had a recent hospital stay, discharged 06/15/2018, after treatment for dysphagia and atrial flutter. She returned to her sister and foyzskx-gd-bum's home upon discharge. PMHX: Medical History Daniel's esophagus Chronic low back pain Depression with anxiety Development delay, borderline Dysphagia GERD Hyperlipidemia Hypertension Hypothyroidism Migraine headache without aura Obstructive sleep apnea on CPAP Osteoarthritis Osteoporosis Sensorineural hearing loss (bilateral) Tardive dyskinesia Type 2 Diabetes Mellitus Urgency incontinence Schizophrenia Social History/Home Situation: Philomena currently lives with her sister Chantal since February of last year who provides assistance with ADLs. Per last admission, sister had reported that Philomena goes to adult daycare via [employer] on a daily basis from Mondays through Fridays. At her sister's house, there are 4 steps to enter without rails but sister is able to provide minimal assistance to Philomena in and out of the house. Patient has had 3 falls the past 12 months. Equipment Owned/DME: Hospital bed, 4WW. Subjective: Philomena is agreeable to PT treatment today. She looks forward to transitioning to a SNF today. Objective: General Observation: Sitting on chair. No lines attached. Persistent tremor fro m Tardive Dyskinesia observed especially with mobility performance. Mental Status: A and O x 3, mild dysarthria noted Pain: Denies ROM: Right Upper Extremity: Shoulder flexion allows 135 degrees actively. Elbow and wrist motion are WFL. Left Upper Extremity: Shoulder flexion allows 135 degrees actively. Elbow and wrist motion are WFL. Right Lower Extremity: WFL Left Lower Extremity: WFL Strength: Right Upper Extremity: Shoulder flexion 4/5. Biceps 4/5. Fuel Testing Technician is strong but equal Left Upper Extremity: Shoulder flexion 4-/5. Biceps 3+/5. Fuel Testing Technician is strong but equal Right Lower Extremity: Hip Flexion 4-/5. Quads 4-/5. Ankle dorsiflexion 4/5. Left Lower Extremity: Hip Flexion 4-/5. Quads 4-/5. Ankle dorsiflexion 4/5. Bed Mobility/Transfers: Rollng CGA Supine to sit CGA Sit to supine CGA Sit to stand CGA Stand to sit CGA Bed to chair CGA with FWW Chair to bed CGA with FWW Gait: Patient ambulates 150 feet +20 feet feet with FWW with CGA with minimal cues needed for overall safety. Patient has no freezing episodes observed during turning and directional changes. Balance: Static Sitting: Good Dynamic Sitting: Good Static Standing: Fair Dynamic Standing: Fair Special Tests: Mobility Limitations Standardized Measure [facility] 6 clicks Basic Mobility Inpatient Short Form: Raw Score: 18 CMS Score: 47% deficit Assessment: Patient is a 72 year old female referred to physical therapy services with the diagnosis of progressive weakness. Patient presents with clinical signs and symptoms consistent with diagnosis, with marketed deficits and independence with transfers and ambulation today. Patient has been receiving assistance from her sister and cnlvypd-ni-uxl in their home, although given the severity of her parkinsonian symptoms, she will likely require a higher level of care going forward. Anticipate need for placement in assisted facility or long-term care facility once medically stable for ongoing strengthening and rehabilitation. She currently demonstrates the following impairment level findings: 1. Decreased upper extremity strength 2. Decreased lower extremity strength 3. Resting tremor Impairments are contributing to the following functional limitations: 1. Needs assistance with transfers 2. Needs assiatnce with bed mobility 3. Needs assistance with stair negotiation 4. Needs assiatnce with ambulation task performance Goals: Goals X1 week 1. Supine-Sit: Supervision NOT MET 2. Sit-Supine: Supervision NOT MET 3. Sit-Stand: Supervision NOT MET 4. Stand-Sit: Supervision NOT MET 5. Bed-Chair: Min assist with FWW NOT MET 6. Chair-Bed: Min assist with FWW NOT MET 7. Gait: Able to ambulate 25 feet with min assist, FWW NOT MET DISCHARGE RECOMMENDATIONS: Patient transfers today to [facility] for continued functional mobility training, gait and balance training, AD device progression, and caregiver/patient education/training. TREATMENT CODE/TIME: 13219 for 20 minutes beginning at 11:25 AM. Thank you for this referral. Rox Brown PT, DPT, CLT [facility]
== END 2018-07-13 13:11 | disposition skilled nursing facility (03) | DRG 640 ==
LOC: ER 20:23 → MS 06-26 09:39
PROVIDERS: Family Medicine; Internal Medicine; Surgery; Admitting Provider Internal Medicine; Emergency Provider Student in an Organized Health Care Education/Training Program; PCP Family Medicine; Visit Provider Internal Medicine
PROC: 0DH63UZ Insertion of Feeding Device into Stomach, Percutaneous Approach (ICD-10-PCS; CPT 43246; principal; 2018-06-29 12:00)
DX: R62.7 Adult failure to thrive (principal); J18.9 Pneumonia, unspecified organism; J69.0 Pneumonitis due to inhalation of food and vomit; I48.92 Unspecified atrial flutter; K91.30 Postprocedural intestinal obstruction, unspecified as to partial versus complete; Z43.1 Encounter for attention to gastrostomy; Z68.33 Body mass index [BMI] 33.0-33.9, adult; E86.0 Dehydration; R13.12 Dysphagia, oropharyngeal phase; Z71.89 Other specified counseling; Y95 Nosocomial condition; E03.9 Hypothyroidism, unspecified; I10 Essential (primary) hypertension; F20.9 Schizophrenia, unspecified; F31.9 Bipolar disorder, unspecified; G24.01 Drug induced subacute dyskinesia; G25.71 Drug induced akathisia; T43.505A Adverse effect of unspecified antipsychotics and neuroleptics, initial encounter; R26.2 Difficulty in walking, not elsewhere classified; K21.9 Gastro-esophageal reflux disease without esophagitis; Z79.4 Long term (current) use of insulin; Z78.9 Other specified health status; F81.9 Developmental disorder of scholastic skills, unspecified
CPT/HCPCS: 36415; 36416; 43246; 70496; 70498; 80048; 80053; 82962; 92610; 93005; 96361; 96365; 96367; 96368; 97110; 97162; 97530; 99220; 99222; 99231; 99232; 99233; 99238; 99239; 99252; 99255; 99285; J1650; NC; 70450; 71045; 71046; 74018; 74019; 74177; 80202; 83735; 84484; 85025; 87070; 87205; 93010; G0378; J0131; J0610; J1885; J1940; J1941; J2060; J2270; J2405; J3475; J3480; J3490

== ENCOUNTER 2018-07-24 13:14 | Outpatient (REF) | payer MEDICARE, MEDICAID, SELFPAY ==
[2018-07-24 13:52] LABS: Bilirubin Negative (Negative); Blood Negative (Negative); Clarity Clear; Glucose Negative (Negative); Ketones Negative (Negative); Leukocyte Esterase Trace (Negative); Nitrite Negative (Negative); Urobilinogen 0.2 EU/dL (Up TO 0.2)
[2018-07-24 14:03] LABS: Bacteria Rare HPF (Negative); C & S Indicated? Yes; Casts Negative LPF (Negative); Crystals Negative HPF (Negative); Epithelial Cells Rare HPF (Negative); Mucus Trace (Negative); Other Cells Few Transitional (Negative); RBC Negative (0-2)
== END 2018-07-24 13:34 ==
LOC: LBN 13:14
PROVIDERS: PCP Family Medicine; Visit Provider Nurse Practitioner Adult Health
DX: R35.0 Frequency of micturition (principal)
CPT/HCPCS: 81003; 81015; 87086

== ENCOUNTER 2018-08-01 11:26 | Inpatient (IN) | payer MEDICARE, MEDICAID, SELFPAY ==
[2018-08-01] VITALS (37 sets, daily range): BP systolic 120–145; BP diastolic 62–102; PULSE 79–101; RESP 18–27; TEMP 36.3–36.5; O2SAT 91–95
--- NOTE | 2018-08-01 11:30 | DI.RAD_ITS ---
SYMPTOMS/DIAGNOSIS: CHEST PAIN AP AND LATERAL CHEST: Comparison is made with [id number]. The heart is enlarged, unchanged. There are underlying fibrotic changes. There are old right rib fractures. No superimposed acute infiltrate, effusion or pulmonary edema is seen. IMPRESSION: No acute abnormality.
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
[2018-08-01 11:42] LABS: Lactate-non-spesis 1.3 mmol/l (0.6-1.4)
[2018-08-01 11:45] LABS: Abs Immature Grans 0.02 k/cumm (0.0-0.09); Absolute Basophil Count 0.02 k/cumm (0.0-0.2); Absolute Eosinophil Count 0.15 k/cumm (0.0-0.7); Absolute Lymphocyte Count 2.31 k/cumm (1.2-3.4); Absolute Monocyte Count 0.55 k/cumm (0.11-0.7); Absolute Neutrophil Count 4.39 k/cumm (1.2-6.7); Basophils % 0.3; HCT 40.3 % (36.0-46.0); HGB 13.4 g/dL (12.0-15.5); Immature Grans % 0.3; Mean Corp. HGB Concentration 33.3 g/dL (32.0-36.0); Mean Corpuscular Hemoglobin 31.2 pg (27.0-33.0); Mean Corpuscular Volume 93.9 fL (80-95); Mean Platelet Volume 11.2 fL (8.0-11.0); Monocytes % 7.4; Platelet Count 223 x1000/uL (130-400); RBC 4.29 m/cumm (4.00-5.20); RBC Distribution Width 13.2 % (11.7-14.6); White Blood Cell Count 7.44 k/cumm (4.4-10.8)
[2018-08-01 11:58] LABS: Bilirubin Negative (Negative); Blood Negative (Negative); Clarity Clear; Glucose Negative (Negative); Ketones Negative (Negative); Leukocyte Esterase Negative (Negative); Nitrite Negative (Negative); Specific Gravity 1.015 (1.005-1.025); Urobilinogen 0.2 EU/dL (Up TO 0.2); pH 7.5 (5-8)
[2018-08-01 12:00] LABS: ALT 23 U/L (12-78); AST 18 U/L (15-37); Albumin 3.3 g/dL (3.4-5.0); Alkaline Phosphatase 102 U/L (46-116); Anion Gap 8.1 mmol/L (3-11); BUN 14 mg/dL (7-18); Bilirubin, Total 0.5 mg/dL (0.2-1.0); CO2 30.9 mmol/L (21.0-32.0); CREATININE 0.72 mg/dL (0.55-1.02); Calcium 9.3 mg/dL (8.5-10.1); Chloride 100 mmol/L (98-107); Glucose 151 mg/dL (70-100); Magnesium 1.9 mg/dL (1.8-2.4); Potassium 4.3 mmol/L (3.5-5.1); Sodium 139 mmol/L (136-145); Total Protein 7.6 g/dL (6.4-8.2)
[2018-08-01 12:01] LABS: Troponin I < 0.02 ng/mL (0.00-0.06)
[2018-08-01 12:27] LABS: Lipase 149 U/L (73-393)
[2018-08-01 13:02] LABS: D-Dimer 544 ng/mlFEU (<500)
[2018-08-01 13:54] LABS: NT-proBNP 162 pg/mL
--- NOTE | 2018-08-01 13:56 | DI.CT_ITS ---
SYMPTOMS/DIAGNOSIS: CHEST PAIN, H/O TRAUMA CHEST CT FOR PULMONARY EMBOLISM: CT angiography was performed with multi slice acquisition and multi planar and 3D reconstruction. The exam is limited by patient body habitus and motion. The lungs are not well evaluated due to significant motion. No gross infiltrates are seen. There is no evidence of pneumothorax. No pulmonary emboli are identified. Small branch vessel emboli could not be excluded due to degree of motion. No pleural or pericardial effusions are present. There is no evidence of aortic dissection. There are minimal atherosclerotic changes of the aorta. There is a stable severe compression fracture of T10. No new fractures are identified. There are old right upper rib fractures. An old left rib fracture is also seen. There is no evidence of acute fractures. IMPRESSION: No evidence of pulmonary emboli or other acute abnormality. The exam is somewhat limited due to respiratory motion.
--- NOTE | 2018-08-01 13:57 | DI.RAD_ITS ---
SYMPTOM/DIAGNOSIS: LT SHOULDER PAIN, TRAUMA LEFT SHOULDER: No fracture or dislocation is seen. There are old left upper rib fractures. There are degenerative changes of the AC joint and glenoid. IMPRESSION: No acute abnormality.
[2018-08-01] MEDS: Omnipaque 350 MG/ML 100 ML BTL IJ (15:09)
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
--- NOTE | 2018-08-01 18:45 | NUR.NOTE ---
Nursing Note: Pt to [facility] floor from ER at 1630 via stretcher. Transferred with two assist to commode and then bed. Pt's mentation questionable due to inability to communicate well via speech. Pt able to acknowledge/answer questions with 'thumbs up, thumbs down'. Pt's VSS, telemetry applied. Call massey within reach. Bed alarms on. RN will continue to monitor.
[2018-08-01 18:53] LABS: Troponin I < 0.02 ng/mL (0.00-0.06)
[2018-08-01] MEDS: Acetaminophen Solution 650 MG/20.3 ML CUP UD (20:15)
[2018-08-01] MEDS: Magnesium Oxide 400 MG TAB UD (20:15)
[2018-08-01] MEDS: Dexlansoprazole 30 MG CAP PO (20:15)
[2018-08-01] MEDS: Simvastatin 20 MG TAB UD (21:56)
[2018-08-01] MEDS: clonazePAM 0.5 MG TAB UD (21:56)
[2018-08-01] MEDS: Normal Saline 1,000 ML 75 ML IV (23:44)
[2018-08-02] VITALS (13 sets, daily range): BP systolic 102–166; BP diastolic 42–85; PULSE 60–120; RESP 18–20; TEMP 36–37.2; O2SAT 93–95
[2018-08-02 00:52] LABS: Troponin I < 0.02 ng/mL (0.00-0.06)
[2018-08-02] MEDS: Normal Saline 1,000 ML 75 ML IV (04:59)
[2018-08-02] MEDS: Levothyroxine 125 MCG TAB UD (05:30)
[2018-08-02] MEDS: Insulin Aspart 300 UNITS/3 ML PEN SC ×4 (06:06→23:46)
[2018-08-02 07:02] LABS: Abs Immature Grans 0.01 k/cumm (0.0-0.09); Absolute Basophil Count 0.03 k/cumm (0.0-0.2); Absolute Lymphocyte Count 2.12 k/cumm (1.2-3.4); Absolute Monocyte Count 0.57 k/cumm (0.11-0.7); Absolute Neutrophil Count 5.34 k/cumm (1.2-6.7); Basophils % 0.4; Eosinophils % 1.2; HCT 41.3 % (36.0-46.0); HGB 13.8 g/dL (12.0-15.5); Immature Grans % 0.1; Lymphocytes % 25.9; Mean Corp. HGB Concentration 33.4 g/dL (32.0-36.0); Mean Corpuscular Hemoglobin 31.4 pg (27.0-33.0); Mean Corpuscular Volume 93.9 fL (80-95); Mean Platelet Volume 11.9 fL (8.0-11.0); Neutrophils % 65.4; Platelet Count 223 x1000/uL (130-400); RBC Distribution Width 13.5 % (11.7-14.6); White Blood Cell Count 8.17 k/cumm (4.4-10.8)
[2018-08-02 07:23] LABS: BUN 11 mg/dL (7-18); CREATININE 0.72 mg/dL (0.55-1.02); Calcium 9.3 mg/dL (8.5-10.1); Chloride 104 mmol/L (98-107); Glucose 190 mg/dL (70-100); Magnesium 1.9 mg/dL (1.8-2.4); Potassium 3.6 mmol/L (3.5-5.1); Sodium 144 mmol/L (136-145)
[2018-08-02] MEDS: Escitalopram 20 MG TAB UD (08:44)
[2018-08-02] MEDS: Magnesium Oxide 400 MG TAB UD ×2 (08:44→19:40)
[2018-08-02] MEDS: Multivitamin TAB 1 TAB UD (08:44)
[2018-08-02] MEDS: Dexlansoprazole 30 MG CAP PO ×2 (08:44→19:40)
[2018-08-02] MEDS: Aspirin 81 MG CHEW UD (08:45)
--- NOTE | 2018-08-02 09:36 | PT.INIE ---
Date of service: 08/02/18 Time of Service: 09:07 PT Notes Inpatient Physical Therapy Evaluation Date: 08/02/2018 Referring Doctor: Maryse Jewell MD PT Orders: PT CONSULT: Eval/treat Precautions: Fall. Contact precautions. Patient Profile/Admitting Diagnosis: Patient is a 72-year-old female who presented to the ED on 08/01/2018 with complaints of right left-sided shoulder pain and back pain. Patient has been a resident of [facility] since 07/13/2018. She started to complain of chest pain and back pain in the morning of 08/01/2018 with a questionable fall the previous night. ED notes stated that patient claims she fell but said event was unwitnessed. At the ED, patient had shoulder x-ray, chest CT, and chest x-ray which showed negative findings for fracture, pulmonary embolism, or any abnormality. EKG showed no acute changes. UA was negative. CT angiogram results are still pending. PMHX: Medical History Daniel's esophagus Chronic low back pain Depression with anxiety Development delay, borderline Dysphagia GERD Hyperlipidemia Hypertension Hypothyroidism Migraine headache without aura Obstructive sleep apnea on CPAP Osteoarthritis Osteoporosis Sensorineural hearing loss (bilateral) Tardive dyskinesia Type 2 Diabetes Mellitus Urgency incontinence Schizophrenia Surgical History H/O bilateral cataract extraction H/O tubal ligation H/O umbilical hernia repair H/O hysterectomy with bilateral oopherectomy S/p cholecystectomy S/P PEG tube placement Social History/Home Situation: Patient has been rehabilitated for mobility progression and strengthening at the [facility] since 07/13/2018 with plan to transition back to her sister's house at safest mobility level. Philomena lived with her sister Chantal since February of last year who provides assistance with bathing. Sister states that she uses a folding chair, places chair inside the tub, and have Philomena step over and onto chair for bathing. Philomena goes to adult daycare via [facility] on a daily basis from Mondays through Fridays. At her sister's house, there is 4 steps to enter without rails but sister is able to provide minimal assistance to Philomena in and out of the house. Chantal states that she is thinking of having a ramp built at her house for easy access for Philomena. Chantal states that Philomena has been able to walk from her bedroom to the bathroom about 20-30 feet using her 4 wheeled walker. Patient has had 3 falls the past 12 months. Equipment Owned/DME: Sister states that Philomena has hospital bed that they have been renting as she states PCP has been having an issue about justifying her need for bed, 4WW but with left break broken. Patient also has a CPAP machine that she has not been using according to her sister Chantal due to the discomfort. Subjective: Philomena is agreeable to a PT consult and treatment today. She points to the left side of her chest when asked where her pain is. Objective: General Observation: Patient seen lying in bed with IV in left UE. Telemetry monitoring on. Increased dyskinesias noted especially with movement performance. Mental Status: Alert and oriented as to person and place. Unable to determine date and time. Pain: Patient held up 10 fingers when asked how much pain she has on the left side of her chest. ROM: Right Upper Extremity: WFL Left Upper Extremity: WFL Right Lower Extremity: Hip flexion to about 30 degrees while seated on chair. Knee and ankle joints WFL. Left Lower Extremity: Hip flexion to about 30 degrees while seated on chair. Knee and ankle joints WFL. Strength: Right Upper Extremity: WFL Left Upper Extremity: WFL Right Lower Extremity: Hip flexors 3-/5. Hip extensors 3-/5. Knee flexors 4-/5. Knee extensors 3+/5. Ankle plantar flexors 4-/5. Ankle dorsiflexors 4-/5. Left Lower Extremity: Hip flexors 3-/5. Hip extensors 3-/5. Knee flexors 4-/5. Knee extensors 3+/5. Ankle plantar flexors 4-/5. Ankle dorsiflexors 4-/5. Sensation: Intact as to pain and pressure to bilateral lower extremities. Bed Mobility/Transfers: Rolling min assist Supine to sit mod assist Sit to supine mod assist Sit to stand mod assist Stand to sit mod assist Bed to chair mod assist Chair to bed mod assist Gait: Patient was able to take 25 feet x 2 with FWW with minimal assist of 1 and stand by assist of student nurse, minimal verbal cues for safety with increased trunk leaning to the right seen. Step length and height significantly reduced. Balance: Static Sitting: Fair Dynamic Sitting: Fair Static Standing: Fair Dynamic Standing: Fair Special Tests: Mobility Limitations Standardized Measure [facility] AM-PAC 6 clicks Basic Mobility Inpatient Short Form: Raw Score: 11 CMS Score: 73% deficit Informed Consent/Education: Patient were instructed in purpose of PT consult and plan of care. Assessment: Patient is a 72 year old female referred to physical therapy services with the diagnosis of chest pain and generalized weakness with a questionable in the bathroom at the [facility]. Patient presents with clinical signs and symptoms consistent with current/admitting diagnoses that have resulted to mobility limitations, gait instability, generalized weakness, and lack of motor control as demonstrated by the following impairment level findings: 1. Decreased strength to B LE major muscle groups 2. Impaired balance 3. Impaired activity tolerance 4. Limitation of joint range of motion in the hips 5. Dyskinesia Impairments are contributing to the following functional limitations: 1. Decreased bed mobility skills 2. Increased dependence with transfers 3. Inability to safely ambulate without assistive device and physical assistance 4. Increase completion time for mobility ADL performance 5. Increased fall risk 6. Inability to negotiate steps alone safely Patient is assessed Moderate 80478 complexity based on the following: History: 72-year-old female with diagnosis of community-acquired pneumonia, ambulatory dysfunction, and generalized weakness with co-morbidities and past medical history as indicated above Examination: Underlying impairments and functional deficits have resulted to [facility] score of 11 with an equivalent deficit of 73% Presentation: Evolving Decision Makin Moderate complexity Goals: Goals X1 week 1. Supine-Sit S 2. Sit-Supine S 3. Sit-Stand S 4. Stand-Sit S 5. Bed-Chair S 6. Chair-Bed S 7. Gait on level surface ambulation supervision with use of least restrictive device for at least 100 feet without report of pain nor dyspnea 8. Stairs independent while holding onto bilateral rails for at least 10 steps without report of pain nor dyspnea 9. Supervision with home exercise program with sister Chantal 10. Balance good for static and dynamic standing Plan of Care/Treatment Plan: 1-2x/day, 7 days/week x 1 week. Plan of care has been reviewed with the PRICING ANALYST providing the service under Physical Therapy direction. Initiate Physical Therapy intervention for strengthening, bed mobility, transfers, gait, stairs, balance training, use of assistive device. DISCHARGE RECOMMENDATIONS: Patient will benefit from shelter facility placement in order to progress mobility level, strength, and balance in preparation for a safe discharge to home. TREATMENT CODE/TIME: 82247 x 29 minutes beginning at 9:07 AM. Thank you for this referral. Rox Brown, PT, DPT, CLT [facility]
--- NOTE | 2018-08-02 09:44 | IN_ITS ---
Date of service: 08/02/18 Time of Service: 09:07 PT Notes Inpatient Physical Therapy Evaluation Date: 08/02/2018 Referring Doctor: Maryse Jewell MD PT Orders: PT CONSULT: Eval/treat Precautions: Fall. Contact precautions. Patient Profile/Admitting Diagnosis: Patient is a 72-year-old female who presented to the ED on 08/01/2018 with complaints of right left-sided shoulder pain and back pain. Patient has been a resident of [facility] since 07/13/2018. She started to complain of chest pain and back pain in the morning of 08/01/2018 with a questionable fall the previous night. ED notes stated that patient claims she fell but said event was unwitnessed. At the ED, patient had shoulder x-ray, chest CT, and chest x-ray which showed negative findings for fracture, pulmonary embolism, or any abnormality. EKG showed no acute changes. UA was negative. CT angiogram results are still pending. PMHX: Medical History Daniel's esophagus Chronic low back pain Depression with anxiety Development delay, borderline Dysphagia GERD Hyperlipidemia Hypertension Hypothyroidism Migraine headache without aura Obstructive sleep apnea on CPAP Osteoarthritis Osteoporosis Sensorineural hearing loss (bilateral) Tardive dyskinesia Type 2 Diabetes Mellitus Urgency incontinence Schizophrenia Surgical History H/O bilateral cataract extraction H/O tubal ligation H/O umbilical hernia repair H/O hysterectomy with bilateral oopherectomy S/p cholecystectomy S/P PEG tube placement Social History/Home Situation: Patient has been rehabilitated for mobility progression and strengthening at the [facility] since 07/13/2018 with plan to transition back to her sister's house at safest mobility level. Philomena lived with her sister Chantal since February of last year who provides assistance with bathing. Sister states that she uses a folding chair, places chair inside the tub, and have Philomena step over and onto chair for bathing. Philomena goes to adult daycare via [facility] on a daily basis from Mondays through Fridays. At her sister's house, there is 4 steps to enter without rails but sister is able to provide minimal assistance to Philomena in and out of the house. Chantal states that she is thinking of having a ramp built at her house for easy access for Philomena. Chantal states that Philomena has been able to walk from her bedroom to the bathroom about 20-30 feet using her 4 wheeled walker. Patient has had 3 falls the past 12 months. Equipment Owned/DME: Sister states that Philomena has hospital bed that they have been renting as she states PCP has been having an issue about justifying her need for bed, 4WW but with left break broken. Patient also has a CPAP machine that she has not been using according to her sister Chantal due to the discomfort. Subjective: Philomena is agreeable to a PT consult and treatment today. She points to the left side of her chest when asked where her pain is. Objective: General Observation: Patient seen lying in bed with IV in left UE. Telemetry monitoring on. Increased dyskinesias noted especially with movement performance. Mental Status: Alert and oriented as to person and place. Unable to determine date and time. Pain: Patient held up 10 fingers when asked how much pain she has on the left side of her chest. ROM: Right Upper Extremity: WFL Left Upper Extremity: WFL Right Lower Extremity: Hip flexion to about 30 degrees while seated on chair. Knee and ankle joints WFL. Left Lower Extremity: Hip flexion to about 30 degrees while seated on chair. Knee and ankle joints WFL. Strength: Right Upper Extremity: WFL Left Upper Extremity: WFL Right Lower Extremity: Hip flexors 3-/5. Hip extensors 3-/5. Knee flexors 4- /5. Knee extensors 3+/5. Ankle plantar flexors 4-/5. Ankle dorsiflexors 4-/5. Left Lower Extremity: Hip flexors 3-/5. Hip extensors 3-/5. Knee flexors 4-/5. Knee extensors 3+/5. Ankle plantar flexors 4-/5. Ankle dorsiflexors 4-/5. Sensation: Intact as to pain and pressure to bilateral lower extremities. Bed Mobility/Transfers: Rolling min assist Supine to sit mod assist Sit to supine mod assist Sit to stand mod assist Stand to sit mod assist Bed to chair mod assist Chair to bed mod assist Gait: Patient was able to take 25 feet x 2 with FWW with minimal assist of 1 and stand by assist of student nurse, minimal verbal cues for safety with increased trunk leaning to the right seen. Step length and height significantly reduced. Balance: Static Sitting: Fair Dynamic Sitting: Fair Static Standing: Fair Dynamic Standing: Fair Special Tests: Mobility Limitations Standardized Measure [facility] AM-PAC 6 clicks Basic Mobility Inpatient Short Form: Raw Score: 11 CMS Score: 73% deficit Informed Consent/Education: Patient were instructed in purpose of PT consult and plan of care. Assessment: Patient is a 72 year old female referred to physical therapy services with the diagnosis of chest pain and generalized weakness with a questionable in the [facility] at the [facility]. Patient presents with clinical signs and symptoms consistent with current/admitting diagnoses that have resulted to mobility limitations, gait instability, generalized weakness, and lack of motor control as demonstrated by the following impairment level findings: 1. Decreased strength to B LE major muscle groups 2. Impaired balance 3. Impaired activity tolerance 4. Limitation of joint range of motion in the hips 5. Dyskinesia Impairments are contributing to the following functional limitations: 1. Decreased bed mobility skills 2. Increased dependence with transfers 3. Inability to safely ambulate without assistive device and physical assistance 4. Increase completion time for mobility ADL performance 5. Increased fall risk 6. Inability to negotiate steps alone safely Patient is assessed Moderate 93794 complexity based on the following: History: 72-year-old female with diagnosis of community-acquired pneumonia, ambulatory dysfunction, and generalized weakness with co-morbidities and past medical history as indicated above Examination: Underlying impairments and functional deficits have resulted to [facility] score of 11 with an equivalent deficit of 73% Presentation: Evolving Decision Makin Moderate complexity Goals: Goals X1 week 1. Supine-Sit S 2. Sit-Supine S 3. Sit-Stand S 4. Stand-Sit S 5. Bed-Chair S 6. Chair-Bed S 7. Gait on level surface ambulation supervision with use of least restrictive device for at least 100 feet without report of pain nor dyspnea 8. Stairs independent while holding onto bilateral rails for at least 10 steps without report of pain nor dyspnea 9. Supervision with home exercise program with sister Chantal 10. Balance good for static and dynamic standing Plan of Care/Treatment Plan: 1-2x/day, 7 days/week x 1 week. Plan of care has been reviewed with the ENTRY LEVEL ELECTRICAL ENGINEER providing the service under Physical Therapy direction. Initiate Physical Therapy intervention for strengthening, bed mobility, transfers, gait, stairs, balance training, use of assistive device. DISCHARGE RECOMMENDATIONS: Patient will benefit from alf facility p lacement in order to progress mobility level, strength, and balance in preparation for a safe discharge to home. TREATMENT CODE/TIME: 54622 x 29 minutes beginning at 9:07 AM. Thank you for this referral. Rox Brown, PT, DPT, CLT [facility]
[2018-08-02] MEDS: Triamcinolone 0.1% CR 15 GM TUBE TP (09:46)
[2018-08-02] MEDS: Mylanta Suspension 30 ML CUP NG (10:11)
[2018-08-02] MEDS: Propranolol 20 MG TAB NG ×3 (10:11→19:41)
--- NOTE | 2018-08-02 10:26 | NUR.NOTE ---
Nursing Note: RN called patient's daughter María Wakefield to give update on patient's care. No concerns from family member.
--- NOTE | 2018-08-02 10:53 | OT.INIE ---
Occupational Therapy Notes Inpatient Occupational Therapy Evaluation Date: 08/02/18 Referring Doctor:Maryse Jewell MD OT Orders: Eval and Treat Precautions: Fall, Standard PATIENT PROFILE/ADMITTING DIAGNOSIS: Pt is a 72 year old female who was admitted through the ER for chest pain with increased tardive dyskinesia. Per pts chart there is an inconsistent ?fall? per pts roommate at the [facility] and [facility]. Past Medical History: GERD, Hyperlipidemia, Hypertension, Hypothyroidism, Migraine headache without aura, Obstructive sleep apnea on CPAP, Osteoarthritis, osteoporosis, Sensorineural hearing loss, bilateral,Tardive akathisia, Tardive dyskinesia, Type 2 diabetes mellitus, Urinary incontinence,Daniel's esophagus, Chronic low back pain, Depression with anxiety,. Development delay, borderline, Dysphagia. Social History/Home Situation: Pt [facility] Pt states that she requires (A) for ADL/IADL routines. She is unable to get dressed, bath or perform functional mobility without (A). Equipment owned/DME: Pt resides at [facility] at this time. SUBJECTIVE: Pt was sitting in bed when OT arrived. She was not able to verbally answer but was able to give a thumbs up for agreeable to OT session. OBJECTIVE: General Observation: Mental Status: Alert to name Pain: no c/o pain ROM: RUE Shoulder flexion 160*, elbow WNL, hand/digits WNL L UE Shoulder flexion 160*, elbow WNL, hand/digits WNL STRENGTH: RUE Shoulder flexion 3+/5, bicep 4-/5, tricep 4-/5, metal patternmaker is weak but symmetrical LUE Shoulder flexion 3+/5, bicep 4-/5, tricep 4-/5, metal patternmaker is weak but symmetrical FUNCTIONAL MOBILITY/ADLS: Pt was able to functionally cross midline, wash her face, wash her (B) UE and perform washing of her abdomen with increased (I). Pt was tired and denied getting out of bed which nursing reported PT was in prior and had her walking which was tiring for pt. BALANCE: Static sitting- Good Dynamic Sitting- Fair SPECIAL TESTS: Daily Activity Limitations Standardized Measure [facility] AM -PAC ?6 clicks? Daily Activity Inpatient Short Form: Raw score: 9 CMS score: 79.59% INFORMED CONSENT/EDUCATION: Pt instructed in purpose of OT Consult and plan of care. ASSESSMENT: Patient is a 72-year-old female referred to occupational therapy services with diagnosis of chest pain with increased tardive dyskinesia. Patient presents with clinical signs and symptoms consistent with dx, as demonstrated by the following impairment level findings: Decreased strength (B) UE shoulder flexion, cognitive deficits, significant PMHx, decreased functional activity tolerance. Impairments are contributing to the following functional limitations: Decreased functional mobility, decreased functional activity tolerance, use of 4WW for functional mobility, decreased (I) in eating routine due to tremor, decreased (I) in toileting routine, decreased (I) in bathing and dressing routine in the sitting position. Patient is assessed as a Moderate 26632 complexity based on the following: History: See Above Examination: See Above Presentation: Evolving Decision Making: AMPAC score 9, CMS score 79.59% GOALS Goals x1 week 1. Transfers SBA, FWW 2. Dressing Sitting in chair pt will require mod (A) for LE and min (A) for UE dressing. 3. Bathing sitting in chair with max (A) set up (I) with UE bathing and Mod (A) LE bathing. 4. Toileting Min (A) on toilet. 5. Eating Min (A) with adaptive silverware 6. Standing at sink with FWW (I) PLAN OF CARE/TREATMENT PLAN: 1x/day, 5 days/ week x 1week Initiate Occupational Therapy Services for bathing, dressing, grooming, toileting, eating, transfer training. DISCHARGE RECOMMENDATIONS OT recommends that pt return to [facility] when medically cleared per MD. TREATMENT TIME/MINUTES/CODES: 32988, 20 minutes (09:35) [facility]
--- NOTE | 2018-08-02 10:59 | OTIE_ITS ---
Occupational Therapy Notes Inpatient Occupational Therapy Evaluation Date: 08/02/18 Referring Doctor:Maryse Jewell MD OT Orders: Eval and Treat Precautions: Fall, Standard PATIENT PROFILE/ADMITTING DIAGNOSIS: Pt is a 72 year old female who was admitted through the ER for chest pain with increased tardive dyskinesia. Per pts chart there is an inconsistent ?fall? per pts roommate at the [facility] and [facility]. Past Medical History: GERD, Hyperlipidemia, Hypertension, Hypothyroidism, Migraine headache without aura, Obstructive sleep apnea on CPAP, Osteoarthritis, osteoporosis, Sensorineural hearing loss, bilateral,Tardive akathisia, Tardive dyskinesia, Type 2 diabetes mellitus, Urinary incontinence,Daniel's esophagus, Chronic low back pain, Depression with anxiety,. Development delay, borderline, Dysphagia. Social History/Home Situation: Pt [facility] Pt states that she requires (A) for ADL/IADL routines. She is unable to get dressed, bath or perform functional mobility without (A). Equipment owned/DME: Pt resides at [facility] at this time. SUBJECTIVE: Pt was sitting in bed when OT arrived. She was not able to verbally answer but was able to give a thumbs up for agreeable to OT session. OBJECTIVE: General Observation: Mental Status: Alert to name Pain: no c/o pain ROM: RUE Shoulder flexion 160*, elbow WNL, hand/digits WNL L UE Shoulder flexion 160*, elbow WNL, hand/digits WNL STRENGTH: RUE Shoulder flexion 3+/5, bicep 4-/5, tricep 4-/5, disability specialist is weak but symmetrical LUE Shoulder flexion 3+/5, bicep 4-/5, tricep 4-/5, disability specialist is weak but symmetrical FUNCTIONAL MOBILITY/ADLS: Pt was able to functionally cross midline, wash her face, wash her (B) UE and perform washing of her abdomen with increased (I). Pt was tired and denied getting out of bed which nursing reported PT was in prior and had her walking which was tiring for pt. BALANCE: Static sitting- Good Dynamic Sitting- Fair SPECIAL TESTS: Daily Activity Limitations Standardized Measure [facility] AM -PAC ?6 clicks? Daily Activity Inpatient Short Form: Raw score: 9 CMS score: 79.59% INFORMED CONSENT/EDUCATION: Pt instructed in purpose of OT Consult and plan of care. ASSESSMENT: Patient is a 72-year-old female referred to occupational therapy services with diagnosis of chest pain with increased tardive dyskinesia. Patient presents with clinical signs and symptoms consistent with dx, as demonstrated by the following impairment level findings: Decreased strength (B) UE shoulder flexion, cognitive deficits, significant PMHx, decreased functional activity tolerance. Impairments are contributing to the following functional limitations: Decreased functional mobility, decreased functional activity tolerance, use of 4WW for functional mobility, decreased (I) in eating routine due to tremor, decreased (I) in toileting routine, decreased (I) in bathing and dressing routine in the sitting position. Patient is assessed as a Moderate 47410 complexity based on the following: History: See Above Examination: See Above Presentation: Evolving Decision Making: AMPAC score 9, CMS score 79.59% GOALS Goals x1 week 1. Transfers SBA, FWW 2. Dressing Sitting in chair pt will require mod (A) for LE and min (A) for UE dressing. 3. Bathing sitting in chair with max (A) set up (I) with UE bathing and Mod (A) LE bathing. 4. Toileting Min (A) on toilet. 5. Eating Min (A) with adaptive silverware 6. Standing at sink with FWW (I) PLAN OF CARE/TREATMENT PLAN: 1x/day, 5 days/ week x 1week Initiate Occupational Therapy Services for bathing, dressing, grooming, toileting, eating, transfer training. DISCHARGE RECOMMENDATIONS OT recommends that pt return to [facility] when medically cleared per MD. TREATMENT TIME/MINUTES/CODES: 33402, 20 minutes (09:35) [facility]
[2018-08-02] MEDS: Acetaminophen Solution 650 MG/20.3 ML CUP UD ×2 (11:33→22:22)
--- NOTE | 2018-08-02 11:51 | PDOC.CMIN ---
Care Management Initial Assess REASON FOR HOSPITALIZATION:: Chest Pain, Worsening tardive dyskinesia PAST MEDICAL HISTORY/PAST SURGICAL HISTORY:: Ambulatory Dysfunction, Afib, Arias's esphagus, bipolar disorder, chronic low back pain, cognitive developmental delay, depression with anxiety, developmental delay borderline, DVT prophylaxis, dysphagia causing pulmonary aspiration with swallowing, GERD, hyperlipidemia, hypertension, hypothyroidism, impaired decision making, migraine headache without aura, obstructive sleep apnea on CPAP, tube feeding diet, osteoarthritis, ostoporosis, schizophrenia, sensorineural hearing loss; bilateral, tardive akathisia, dyskinesia, Type 2 DM, urgency incontinence. bilateral cataract extraction, tubal ligation, umbilical hernia repair, hysterectomy with bilateral oophorectomy, cholecystectomy PREVIOUS FUNCTIONAL STATUS/SOCIAL/FAMILY SUPPORTS:: Philomena currently resides at [facility], she was placed there after her last admission at [facility] from 06/25-07/13. She has a supportive family; point person is Chantal, Philomena's sister and DPOA. CURRENT FUNCTIONAL STATUS:: Philomena was sitting in her chair, legs elevated, eyes closed, mouth and hands shaking. She was unable to engage with this senior writer. ADVANCE DIRECTIVES:: COLST on file. Has patient been provided with information about the portal?: No Did the patient sign up for the portal?: No CODE STATUS:: DNR/DNI INSURANCE COVERAGE / FINANCIAL ISSUES:: Medicare. Medicaid CURRENT HOME/COMMUNITY SERVICES/EQUIPMENT:: Palliative Care, Rehabiliative stay at [facility] (manages service and equipement needs at this time) PRIMARY CARE PHYSICIAN:: Leti Franz POTENTIAL DISCHARGE NEEDS:: Coordinated return to [facility], Palliative Care Consult. PATIENT/FAMILY EDUCATION NEEDS:: Review of instructions, discuss Ask Me Three. ANTICIPATED BARRIERS TO DISCHARGE:: None identified at this time. TRANSPORTATION:: Via [facility]. PLAN:: Philomena will continue to be closely monitored; anticipate work up for worsening tardive dyskinesia. Per MD, Philomena may have an MPI Stress Test. CM will coordinate return to [facility] when discharge plan is developed.
--- NOTE | 2018-08-02 12:11 | INITIAL_ITS ---
Care Management Initial Assess REASON FOR HOSPITALIZATION:: Chest Pain, Worsening tardive dyskinesia PAST MEDICAL HISTORY/PAST SURGICAL HISTORY:: Ambulatory Dysfunction, Afib, Arias's esphagus, bipolar disorder, chronic low back pain, cognitive developmental delay, depression with anxiety, developmental delay borderline, DVT prophylaxis, dysphagia causing pulmonary aspiration with swallowing, GERD, hyperlipidemia, hypertension, hypothyroidism, impaired decision making, migraine headache without aura, obstructive sleep apnea on CPAP, tube feeding diet, osteoarthritis, ostoporosis, schizophrenia, sensorineural hearing loss; bilateral, tardive akathisia, dyskinesia, Type 2 DM, urgency incontinence. bilateral cataract extraction, tubal ligation, umbilical hernia repair, hysterectomy with bilateral oophorectomy, cholecystectomy PREVIOUS FUNCTIONAL STATUS/SOCIAL/FAMILY SUPPORTS:: Philomena currently resides at [facility], she was placed there after her last admission at [facility] from 06/25-07/13. She has a supportive family; point person is Chantal, Philomena's sister and DPOA. CURRENT FUNCTIONAL STATUS:: Philomena was sitting in her chair, legs elevated, eyes closed, mouth and hands shaking. She was unable to engage with this development writer. ADVANCE DIRECTIVES:: COLST on file. Has patient been provided with information about the portal?: No Did the patient sign up for the portal?: No CODE STATUS:: DNR/DNI INSURANCE COVERAGE / FINANCIAL ISSUES:: Medicare. Medicaid CURRENT HOME/COMMUNITY SERVICES/EQUIPMENT:: Palliative Care, Rehabiliative stay at [facility] (manages service and equipement needs at this time) PRIMARY CARE PHYSICIAN:: Leti Franz POTENTIAL DISCHARGE NEEDS:: Coordinated return to [facility], Palliative Care Consult. PATIENT/FAMILY EDUCATION NEEDS:: Review of instructions, discuss Ask Me Three. ANTICIPATED BARRIERS TO DISCHARGE:: None identified at this time. TRANSPORTATION:: Via [facility] and [facility]. PLAN:: Philomena will continue to be closely monitored; anticipate work up for worsening tardive dyskinesia. Per MD, Philomena may have an MPI Stress Test. CM will coordinate return to [facility] when discharge plan is developed.
--- NOTE | 2018-08-02 13:18 | PT.INTREAT ---
Date of service: 08/02/18 Time of Service: 13:19 PT Notes Inpatient Physical Therapy Treatment Note [facility] Date: 08/02/18 PRECAUTIONS: Fall, Contact SUBJECTIVE: Philomena indicates that she is agreeable to participating in PT. OBJECTIVE: PAIN: No c/o pain BED MOBILITY/TRANSFERS Stand-sit: Min A GAIT Assistive Device: FWW Weight bearing: Full Assist: Min A Distance: 30' Deviation: Cueing for FWW mechanics, decreased pacing and step height and length THEREX: Patient completed LAQ, ankle pump, and hip flexion exercises, as per flow sheet. ASSESSMENT: Patient tolerated session with c/o increased fatigue. She would benefit from continued gait and transfer training, as well as strengthening for improved mobility. PLAN: Continue with PT's POC TREATMENT CODE/TIME: 20 minutes; 10070
--- NOTE | 2018-08-02 14:43 | CHAPLAIN ---
Philomena said very few words to me when I visited with her. She acknowledged I was there, said a couple of words initially, but then stopped. I explained who I was and stayed and talked for a few minutes with Philomena. I'll continue to visit.
[2018-08-02] MEDS: Pantoprazole 40 MG VIAL IVP (15:11)
[2018-08-02] MEDS: Normal Saline Flush 10 ML SYR IVP (15:11)
--- NOTE | 2018-08-02 15:21 | W.PM.PROGNOT ---
Date of Service Date of service: 08/02/18 Time of Service: 15:21 Assessment and Plan (1) Chest pain, rule out acute myocardial infarction: Current visit: Yes Status: Acute Troponin negative x3. Does not appear to be ischemic at this time. Chest pain reproducible on palpation. There is a question of possible fall at the rehab. Will initiate NSAIDs via her PEG tube and continue to monitor. (2) On tube feeding diet: Current visit: No Status: Chronic She states that she is happy that she has a feeding tube when questioned. [facility] Continue aspiration precautions. Continue n.p.o. status. (3) Schizophrenia: Current visit: No Status: Chronic No evidence of acute psychosis or hallucinations, exam limited by her inability to speak. It does not appear that any new antipsychotics have been added recently. Continue current regimen. (4) GERD (gastroesophageal reflux disease): Current visit: No Status: Chronic She is on twice daily PPI therapy. There was question as to whether her chest pain was related to GERD. However, the pain is reproducible with palpation of her midsternal area. Trial NSAIDs. Monitor hemoglobin and hematocrit. Continue current PPI therapy. (5) Tardive dyskinesia: Current visit: No Status: Chronic Severe tardive dyskinesia which limits her ability to take PO and communicate. With recent worsening tardive dyskinesia. [facility], does not appear that any new antipsychotics were added. She has been on Ingrezza, continue current dose. Continue to monitor. (6) DVT prophylaxis: Current visit: No Status: Acute Subcutaneous Lovenox. (7) Discharge planning issues: Current visit: No Status: Acute She is a DNR/DNI. She has a palliative care patient, palliative care has been consulted. This case was discussed with Dr. Jewell who is in agreement. Subjective Interval history since last seen: Ms Adames continues to report mid-sternal chest pain that is reproducible on palpation, when questioned how much pain she is in, she holds up both hands, indicating 10/10 pain. She feels that her tremors are worse than her baseline. She communicates with few words and with hand motions. When questioned if she is happy that she has her feeding tube, she states, yes. She is unable to engage in a full review of systems. Exam Narrative Exam Narrative: General: awake and alert, sitting up in bed, constant tongue thrusting, lipsmacking and blinking. Difficulty communicating, only answers yes to some questions. Uses hand motions to communicate. Tremor noted to both arms, right > left. Skin: blotchy, annular plaques noted across bilateral upper extremities. HEENT: atraumatic, hearing intact, pupils equal and round, tongue slightly dry. Respiratory: respirations even and unlabored, rales to bilateral bases, expiratory wheezes noted to bilateral upper lobes. Chest: Significant pain on palpation of midsternal region. Cardiovascular: Heart sounds regular, no murmur appreciated. GI: Abdomen soft, normoactive bowel sounds throughout, PEG tube in place with no surrounding erythema or drainage. Nontender on palpation of epigastric region. Extremities: Trace pedal edema to bilateral ankles, GABRIELE stockings on bilaterally. Objective Objective Clinical Data: Abnormal lab results 08/02/18 08/02/18 Range/Units 06:35 06:35 MPV 11.9 H (8.0-11.0) fL Anion Gap 14.0 H (3-11) mmol/L Glucose 190 H (70-100) mg/dL Vital Signs Temperature 37 C 08/02/18 12:14 Temperature Source Tympanic 08/02/18 12:14 Pulse 88 08/02/18 12:14 Pulse Rhythm Regular 08/02/18 09:33 Pulse 101 H 08/01/18 14:50 Respiratory Rate 18 08/02/18 12:14 Respiratory Effort Non-Labored 08/02/18 09:33 Respiratory Depth Normal 08/02/18 09:33 Respiratory Pattern Normal 08/02/18 09:33 Blood Pressure 116/59 L 08/02/18 13:50 Blood Pressure Mean 79 08/01/18 14:16 Pulse Oximetry 93 L 08/02/18 12:14 Oxygen Delivery Method Room Air 08/02/18 12:14 Oxygen Flow Rate 0 08/02/18 12:14 Pain Level 10 08/02/18 11:33 Comment 08/01/18 11:28 Intake & Output 08/01/18 08/02/18 08/02/18 23:59 11:59 23:59 Intake Total 520 / 520 870.75 / 1107.75 237 / 1107.75 Output Total 925 / 925 730 / 1240 510 / 1240 Balance -405 / -405 140.75 / -132.25 -273 / -132.25 Weight 87.2 kg 82.9 kg Intake: IV 520 / 520 393.75 / 393.75 Intake, Tube Feeding Amount 477 / 714 237 / 714 Output: Urine 925 / 925 475 / 975 500 / 975 Stool 50 / 50 Output, Residual 205 / 215 10 / 215 Other: Urine Color Pale Straw Pale Yellow Yellow Urine Appearance Clear Clear Clear Urine Odor None Normal None Comment Pt has brief on. Up to commode upon arrival to [facility] floor with minimal output. Stool Size Small Small Stool Characteristics Liquid Soft Brown Liquid Voiding Methods Bedside Commode Bedside Commode Bedside Commode Laboratory Results WBC 8.17 k/cumm (4.4-10.8) 08/02/18 06:35 RBC 4.40 m/cumm (4.00-5.20) 08/02/18 06:35 Hgb 13.8 g/dL (12.0-15.5) 08/02/18 06:35 Hct 41.3 % (36.0-46.0) 08/02/18 06:35 MCV 93.9 fL (80-95) 08/02/18 06:35 MCH 31.4 pg (27.0-33.0) 08/02/18 06:35 MCHC 33.4 g/dL (32.0-36.0) 08/02/18 06:35 RDW 13.5 % (11.7-14.6) 08/02/18 06:35 Plt Count 223 x1000/uL (130-400) 08/02/18 06:35 MPV 11.9 fL (8.0-11.0) H 08/02/18 06:35 Immature Gran % 0.1 08/02/18 06:35 Neutrophils % 65.4 08/02/18 06:35 Lymphocytes % 25.9 08/02/18 06:35 Monocytes % 7.0 08/02/18 06:35 Eosinophils % 1.2 08/02/18 06:35 Basophils % 0.4 08/02/18 06:35 Absolute Neutrophils 5.34 k/cumm (1.2-6.7) 08/02/18 06:35 Absolute Lymphocytes 2.12 k/cumm (1.2-3.4) 08/02/18 06:35 Absolute Monocytes 0.57 k/cumm (0.11-0.7) 08/02/18 06:35 Absolute Eosinophils 0.10 k/cumm (0.0-0.7) 08/02/18 06:35 Absolute Basophils 0.03 k/cumm (0.0-0.2) 08/02/18 06:35 D-Dimer 544 ng/mlFEU (<500) H 08/01/18 11:30 Sodium 144 mmol/L (136-145) 08/02/18 06:35 Potassium 3.6 mmol/L (3.5-5.1) 08/02/18 06:35 Chloride 104 mmol/L (98-107) 08/02/18 06:35 Carbon Dioxide 26.0 mmol/L (21.0-32.0) 08/02/18 06:35 Anion Gap 14.0 mmol/L (3-11) H 08/02/18 06:35 BUN 11 mg/dL (7-18) 08/02/18 06:35 Creatinine 0.72 mg/dL (0.55-1.02) 08/02/18 06:35 Estimated GFR/1.73 m2 >= 60.00 (mL/min/1.73m2) 08/02/18 06:35 Glucose 190 mg/dL (70-100) H 08/02/18 06:35 Lactate 1.3 mmol/l (0.6-1.4) 08/01/18 11:35 Calcium 9.3 mg/dL (8.5-10.1) 08/02/18 06:35 Magnesium 1.9 mg/dL (1.8-2.4) 08/02/18 06:35 Total Bilirubin 0.5 mg/dL (0.2-1.0) 08/01/18 11:35 AST 18 U/L (15-37) 08/01/18 11:35 ALT 23 U/L (12-78) 08/01/18 11:35 Alkaline Phosphatase 102 U/L (46-116) 08/01/18 11:35 Troponin I < 0.02 ng/mL (0.00-0.06) 08/02/18 00:20 NT-Pro-B Natriuret Pep 162 pg/mL (-299) 08/01/18 11:35 Total Protein 7.6 g/dL (6.4-8.2) 08/01/18 11:35 Albumin 3.3 g/dL (3.4-5.0) L 08/01/18 11:35 Lipase 149 U/L (73-393) 08/01/18 11:30 Urine Color Yellow (Yellow) 08/01/18 11:49 Urine Clarity Clear 08/01/18 11:49 Urine pH 7.5 (5-8) 08/01/18 11:49 Ur Specific [place] 1.015 (1.005-1.025) 08/01/18 11:49 Urine Protein Negative mg/dL (Negative) 08/01/18 11:49 Urine Ketones Negative mg/dL (Negative) 08/01/18 11:49 Urine Blood Negative (Negative) 08/01/18 11:49 Urine Nitrite Negative (Negative) 08/01/18 11:49 Urine Bilirubin Negative (Negative) 08/01/18 11:49 Urine Urobilinogen 0.2 EU/dL (Up TO 0.2) 08/01/18 11:49 Ur Leukocyte Esterase Negative (Negative) 08/01/18 11:49 Urine Glucose Negative mg/dL (Negative) 08/01/18 11:49
--- NOTE | 2018-08-02 16:26 | PHARADMIT ---
Admission Pharmacy Clinical Review chest pain, worsening tardive dyskinesia Code Status DNR/DNI Current Weight 82.9 kg Renally Cleared and Narrow Therapeutic Index Meds Crcl ~74.1 mL/min using adjusted body weight current meds okay QTc Value / Action Taken QTc 459 BP Control, Fever BP 112/58 afebrile Electrolytes reviewed within normal limits DVT Prophylaxis none Opiate Usage / Scheduled Bowel Regimen Ordered no/prn Plt/SCr for Heparin / Enoxaparin plt 223 SCr 0.72 INR for Warfarin n/a H/H stable, WBC/Bands h/h 13.8/41.3 wbc 8.17 Antibiotic appropriateness n/a Cultures and Sensitivities MRSA negative, blood cultures no growth at 24 hours Surgical ABX d/c within 24 hr n/a DM control / Insulin Dosing BG 190 sliding scale aspart Heart Failure (Check EF%) (WILLIE's, B-Block, Diuretics) none IV to PO Switch PO meds to be given via peg tube per MD Home Meds Reviewed -propranolol may diminish the bronchodilatory effect of albuterol -separate admin of magnesium and multivitamin from levothyroxine Home Meds Not Ordered all home meds ordered Comments -pts own valbenazine, some has been checked by pharmacy and sent up for pt to use, some is still in pharmacy for when first bottle runs out -metformin on hold due to iohexol given 08/01/18
[2018-08-02] MEDS: clonazePAM 0.5 MG TAB UD (21:06)
[2018-08-02] MEDS: Simvastatin 20 MG TAB UD (21:06)
[2018-08-03] VITALS (7 sets, daily range): BP systolic 112–144; BP diastolic 56–81; PULSE 68–83; RESP 16–24; TEMP 35.9–37.1; O2SAT 95–97
[2018-08-03] MEDS: Insulin Aspart 300 UNITS/3 ML PEN SC ×4 (06:57→23:22)
[2018-08-03] MEDS: Levothyroxine 125 MCG TAB UD (06:57)
[2018-08-03 07:36] LABS: Abs Immature Grans 0.01 k/cumm (0.0-0.09); Absolute Basophil Count 0.03 k/cumm (0.0-0.2); Absolute Eosinophil Count 0.19 k/cumm (0.0-0.7); Absolute Lymphocyte Count 2.13 k/cumm (1.2-3.4); Absolute Monocyte Count 0.62 k/cumm (0.11-0.7); Absolute Neutrophil Count 2.93 k/cumm (1.2-6.7); Basophils % 0.5; Eosinophils % 3.2; HCT 39.7 % (36.0-46.0); HGB 13.1 g/dL (12.0-15.5); Immature Grans % 0.2; Mean Corpuscular Volume 93.9 fL (80-95); Mean Platelet Volume 12.1 fL (8.0-11.0); Monocytes % 10.5; Neutrophils % 49.6; Platelet Count 204 x1000/uL (130-400); RBC 4.23 m/cumm (4.00-5.20); RBC Distribution Width 13.5 % (11.7-14.6); White Blood Cell Count 5.91 k/cumm (4.4-10.8)
[2018-08-03 07:53] LABS: Anion Gap 12.5 mmol/L (3-11); BUN 15 mg/dL (7-18); CO2 25.5 mmol/L (21.0-32.0); CREATININE 0.78 mg/dL (0.55-1.02); Calcium 8.8 mg/dL (8.5-10.1); Chloride 104 mmol/L (98-107); Glucose 177 mg/dL (70-100); Potassium 3.6 mmol/L (3.5-5.1); Sodium 142 mmol/L (136-145)
--- NOTE | 2018-08-03 08:46 | OT.INNT ---
Date of service: 08/03/18 Time of Service: 08:45 Occupational Therapy Notes 08/03/18 OT went to see pt who states no when working with OT today. She states no for pain and when asked how she is doing she states tired. OT will check in with pt tomorrow. JOE [facility]
--- NOTE | 2018-08-03 09:33 | PT.INTREAT ---
Date of service: 08/03/18 Time of Service: 09:33 PT Notes 08/03/18 SUBJECTIVE: Philomena indicating that she needs to use the commode. We use thumbs up and thumbs down to communicate throughout treatment. OBJECTIVE: TRANSFERS Sit to stand: Min A Stand to sit: Min-mod A GAIT Device: FWW Weight bearing: Full Assist: Min A Distance: 15'x2, 3'x2 Deviation: Requires assist with turns with the walker, leans backwards THEREX: UE/LE strengthening performed in seated position as noted on flow sheet with good participation. ASSESSMENT: Tolerates PT well today. She does tend to flop when she knows she is close to her recliner and requires cues for hand placement and safety. One LOB backwards with mod A for recovery during gait. PLAN: Continue current POC progressing toward's established goals. Treatment time: 30 minutes [id number], [id number] Georgie Vargas PTA Clinic location: [facility] [place], [place]
--- NOTE | 2018-08-03 09:37 | PTTR_ITS ---
Date of service: 08/03/18 Time of Service: 09:33 PT Notes 08/03/18 SUBJECTIVE: Philomena indicating that she needs to use the commode. We use thumbs up and thumbs down to communicate throughout treatment. OBJECTIVE: TRANSFERS Sit to stand: Min A Stand to sit: Min-mod A GAIT Device: FWW Weight bearing: Full Assist: Min A Distance: 15'x2, 3'x2 Deviation: Requires assist with turns with the walker, leans backwards THEREX: UE/LE strengthening performed in seated position as noted on flow sheet with good participation. ASSESSMENT: Tolerates PT well today. She does tend to flop when she knows she is close to her recliner and requires cues for hand placement and safety. One LOB backwards with mod A for recovery during gait. PLAN: Continue current POC progressing toward's established goals. Treatment time: 30 minutes [id number], [id number] Georgie Vargas PTA Clinic location: [facility] [place], [place]
[2018-08-03] MEDS: Magnesium Oxide 400 MG TAB UD ×2 (09:43→20:20)
[2018-08-03] MEDS: Dexlansoprazole 30 MG CAP PO ×2 (09:43→20:20)
[2018-08-03] MEDS: Escitalopram 20 MG TAB UD (09:43)
[2018-08-03] MEDS: Aspirin 81 MG CHEW UD (09:44)
[2018-08-03] MEDS: Enoxaparin 40 MG/0.4 ML SYR SC (09:44)
[2018-08-03] MEDS: Propranolol 20 MG TAB NG ×3 (09:44→20:21)
[2018-08-03] MEDS: Multivitamin TAB 1 TAB UD (09:44)
[2018-08-03] MEDS: Triamcinolone 0.1% CR 15 GM TUBE TP (09:45)
--- NOTE | 2018-08-03 13:45 | PT.INTREAT ---
Date of service: 08/03/18 Time of Service: 13:45 PT Notes 08/03/18 SUBJECTIVE: Pt gives thumbs up when asked if she wants to go back to bed. OBJECTIVE: TRANSFERS: Sit to stand: Min A Stand to sit: Mod A Sit to supine: Max x2 GAIT Device: FWW Weight bearing: Full Assist: Min A Distance: 15'x2 Deviation: Walker management, verbal cues for hand placements ASSESSMENT: Tolerates PT well although continues to require assist with managing her walker especially with turns and backing up. She does lean backwards at times and sits quickly to the bed or chair without notice. PLAN: Continue with functional mobility training and strengthening as she is able to tolerate. Treatment time: 15 minutes [id number] Georgie Vargas, DIRECTOR OF PROCUREMENT
--- NOTE | 2018-08-03 14:14 | NUR.NOTE ---
Nursing Note: 1345: pt daughter called to get update on pt. update given; all questions answered. reported to pt that daughterMaría would be visiting later today.
--- NOTE | 2018-08-03 14:51 | W.PM.PROGNOT ---
Date of Service Date of service: 08/03/18 Time of Service: 14:52 Assessment and Plan (1) Chest pain, rule out acute myocardial infarction: Current visit: Yes Status: Acute Troponin negative x3. Does not appear to be ischemic at this time. Chest pain reproducible on palpation. There was question of a possible fall at the rehab. Pain improved with scheduled NSAIDs via her PEG tube. Continue to monitor. (2) On tube feeding diet: Current visit: No Status: Chronic Appears to be comfortable with feeding tube. [facility] Continue aspiration precautions. Continue n.p.o. status. (3) Schizophrenia: Current visit: No Status: Chronic No evidence of acute psychosis or hallucinations, exam limited by her inability to speak. It does not appear that any new antipsychotics have been added recently. Continue current regimen. (4) GERD (gastroesophageal reflux disease): Current visit: No Status: Chronic She is on twice daily PPI therapy. There was question as to whether her chest pain was related to GERD. However, the pain is reproducible with palpation of her midsternal area, improving with NSAIDs. Monitor hemoglobin and hematocrit. Continue current PPI therapy. (5) Tardive dyskinesia: Current visit: No Status: Chronic Severe tardive dyskinesia which limits her ability to take PO and communicate. Tardive dyskinesia improved today. Her speech appears to be improving. Consult neurology related to intermittent speech changes. Dr. Pulliam has seen her in the past. Hold off on MRI for now as it is unclear what benefit this would provide to her. She has a history of falls, including a fall contributing to this admission, making her a poor candidate for anticoagulation. Upon review of the [facility] and [facility] records, it does not appear that any new antipsychotics were added. She has been on Ingrezza- it is unclear if she missed any doses. Continue Ingrezza. Continue to monitor. (6) Skin rash: Current visit: Yes Status: Acute Annular plaques over bilateral upper and lower extremities and trunk. Possible fungal. Trial antifungal treatment. (7) DVT prophylaxis: Current visit: No Status: Acute Subcutaneous Lovenox. (8) Discharge planning issues: Current visit: No Status: Acute She is a DNR/DNI. She has a palliative care patient, palliative care has been consulted. This case was discussed with Dr. Jewell who is in agreement. Subjective Interval history since last seen: Ms Adames reports improvement in her mid-sternal chest pain. She has been on scheduled ibuprofen. The pain is no longer reproducible on palpation of her chest. Her tardive dyskinesia is improved today. She is able to communicate more effectively today, although still not using complete sentences. She continues to use minimal words and hand motions to communicate, however, she is more clear today. When questioned if she wants to get back to the Rehab, she gives thumbs up. Nursing reports that she did not sleep well last night and that she was drowsy this morning, but that she appears to be nearing her baseline. Nursing reports that she had a cough yesterday but no cough observed today. Exam Narrative Exam Narrative: General: awake and alert, sitting up in recliner, continues to have tongue thrusting, lipsmacking and blinking- less severe than yesterday. She has some difficulty communicating, using more words today, she uses hand motions to communicate as well. Tremor noted to both arms, right > left. Skin: blotchy, annular plaques noted across bilateral upper extremities, trunk and lower extremities. HEENT: atraumatic, hearing intact, pupils equal and round, tongue slightly dry. Respiratory: respirations even and unlabored, rales to left base, expiratory wheezes noted to bilateral upper lobes. Chest: minimal discomfort on palpation of midsternal region. Cardiovascular: Heart sounds regular, no murmur appreciated. GI: Abdomen soft, normoactive bowel sounds throughout, PEG tube in place with no surrounding erythema or drainage. Nontender on palpation of epigastric region. Extremities: Trace pedal edema to bilateral ankles, GABRIELE stockings on bilaterally. Objective Objective Clinical Data: Abnormal lab results 08/03/18 08/03/18 Range/Units 06:40 06:40 MPV 12.1 H (8.0-11.0) fL Anion Gap 12.5 H (3-11) mmol/L Glucose 177 H (70-100) mg/dL Vital Signs Temperature 37 C 08/03/18 14:00 Temperature Source Tympanic 08/03/18 14:00 Pulse 70 08/03/18 14:00 Pulse Rhythm Regular 08/03/18 07:45 Pulse 101 H 08/01/18 14:50 Respiratory Rate 16 08/03/18 14:00 Respiratory Effort 08/03/18 07:45 Respiratory Depth Normal 08/03/18 07:45 Respiratory Pattern Normal 08/03/18 07:45 Blood Pressure 124/77 08/03/18 14:00 Blood Pressure Mean 79 08/01/18 14:16 Pulse Oximetry 95 08/03/18 14:00 Oxygen Delivery Method Room Air 08/03/18 14:00 Oxygen Flow Rate 0 08/03/18 14:00 Pain Level 0 08/02/18 15:35 Comment 08/01/18 11:28 Intake & Output 08/02/18 08/03/18 08/03/18 23:59 11:59 23:59 Intake Total 2484.75 / 3355.50 474 / 761 287 / 761 Output Total 975 / 1705 380 / 480 100 / 480 Balance 1509.75 / 1650.50 94 / 281 187 / 281 Weight 83.3 kg Intake: IV 913.75 / 1307.50 Oral 787 / 787 0 / 0 Intake, Tube Feeding Amount 784 / 1261 474 / 761 287 / 761 Output: Urine 950 / 1425 300 / 400 100 / 400 Output, Residual 25 / 230 80 / 80 0 / 80 Other: Urine Color Yellow Light Natty Pale Urine Appearance Clear Clear Clear Urine Odor Normal Normal None Comment Patient voided on bedside commode this am. Unable to assess urine color and amount d/t being mixed with loose stool. Stool Size Small Moderate Stool Characteristics Soft Liquid Liquid Voiding Methods Bedside Commode Bedside Commode Laboratory Results WBC 5.91 k/cumm (4.4-10.8) 08/03/18 06:40 RBC 4.23 m/cumm (4.00-5.20) 08/03/18 06:40 Hgb 13.1 g/dL (12.0-15.5) 08/03/18 06:40 Hct 39.7 % (36.0-46.0) 08/03/18 06:40 MCV 93.9 fL (80-95) 08/03/18 06:40 MCH 31.0 pg (27.0-33.0) 08/03/18 06:40 MCHC 33.0 g/dL (32.0-36.0) 08/03/18 06:40 RDW 13.5 % (11.7-14.6) 08/03/18 06:40 Plt Count 204 x1000/uL (130-400) 08/03/18 06:40 MPV 12.1 fL (8.0-11.0) H 08/03/18 06:40 Immature Gran % 0.2 08/03/18 06:40 Neutrophils % 49.6 08/03/18 06:40 Lymphocytes % 36.0 08/03/18 06:40 Monocytes % 10.5 08/03/18 06:40 Eosinophils % 3.2 08/03/18 06:40 Basophils % 0.5 08/03/18 06:40 Absolute Neutrophils 2.93 k/cumm (1.2-6.7) 08/03/18 06:40 Absolute Lymphocytes 2.13 k/cumm (1.2-3.4) 08/03/18 06:40 Absolute Monocytes 0.62 k/cumm (0.11-0.7) 08/03/18 06:40 Absolute Eosinophils 0.19 k/cumm (0.0-0.7) 08/03/18 06:40 Absolute Basophils 0.03 k/cumm (0.0-0.2) 08/03/18 06:40 D-Dimer 544 ng/mlFEU (<500) H 08/01/18 11:30 Sodium 142 mmol/L (136-145) 08/03/18 06:40 Potassium 3.6 mmol/L (3.5-5.1) 08/03/18 06:40 Chloride 104 mmol/L (98-107) 08/03/18 06:40 Carbon Dioxide 25.5 mmol/L (21.0-32.0) 08/03/18 06:40 Anion Gap 12.5 mmol/L (3-11) H 08/03/18 06:40 BUN 15 mg/dL (7-18) 08/03/18 06:40 Creatinine 0.78 mg/dL (0.55-1.02) 08/03/18 06:40 Estimated GFR/1.73 m2 >= 60.00 (mL/min/1.73m2) 08/03/18 06:40 Glucose 177 mg/dL (70-100) H 08/03/18 06:40 Lactate 1.3 mmol/l (0.6-1.4) 08/01/18 11:35 Calcium 8.8 mg/dL (8.5-10.1) 08/03/18 06:40 Magnesium 2.0 mg/dL (1.8-2.4) 08/03/18 06:40 Total Bilirubin 0.5 mg/dL (0.2-1.0) 08/01/18 11:35 AST 18 U/L (15-37) 08/01/18 11:35 ALT 23 U/L (12-78) 08/01/18 11:35 Alkaline Phosphatase 102 U/L (46-116) 08/01/18 11:35 Troponin I < 0.02 ng/mL (0.00-0.06) 08/02/18 00:20 NT-Pro-B Natriuret Pep 162 pg/mL (-299) 08/01/18 11:35 Total Protein 7.6 g/dL (6.4-8.2) 08/01/18 11:35 Albumin 3.3 g/dL (3.4-5.0) L 08/01/18 11:35 Lipase 149 U/L (73-393) 08/01/18 11:30 Urine Color Yellow (Yellow) 08/01/18 11:49 Urine Clarity Clear 08/01/18 11:49 Urine pH 7.5 (5-8) 08/01/18 11:49 Ur Specific [place] 1.015 (1.005-1.025) 08/01/18 11:49 Urine Protein Negative mg/dL (Negative) 08/01/18 11:49 Urine Ketones Negative mg/dL (Negative) 08/01/18 11:49 Urine Blood Negative (Negative) 08/01/18 11:49 Urine Nitrite Negative (Negative) 08/01/18 11:49 Urine Bilirubin Negative (Negative) 08/01/18 11:49 Urine Urobilinogen 0.2 EU/dL (Up TO 0.2) 08/01/18 11:49 Ur Leukocyte Esterase Negative (Negative) 08/01/18 11:49 Urine Glucose Negative mg/dL (Negative) 08/01/18 11:49
[2018-08-03] MEDS: Acetaminophen Solution 650 MG/20.3 ML CUP UD (15:23)
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
--- NOTE | 2018-08-03 17:39 | PDOC.CMPRO ---
Care Management Progress Note S/O: Philomena showed improvement today and was able to engage more using her thumb up or down for yes or no. She was drowsy today as she did not rest well last night, per RN. CM continues to follow. A: 72 year old female admitted to [facility] 08/01/18 for Chest Pain, Worsening Tardive Dyskinesia P: Per provider, tardive dyskinesia improved today; anticipate Philomena could return to [facility] as soon as tomorrow. CM coordinated tentative discharge with Provider and Svitlana at &R for 1030 tomorrow morning, as Svitlana reports this is when the W/C van is able to offer transportation. CM continues to follow.
--- NOTE | 2018-08-03 17:44 | CMPROGNOTE_ITS ---
Care Management Progress Note S/O: Philomena showed improvement today and was able to engage more using her thumb up or down for yes or no. She was drowsy today as she did not rest well last night, per RN. CM continues to follow. A: 72 year old female admitted to [facility] 08/01/18 for Chest Pain, Worsening Tardive Dyskinesia P: Per provider, tardive dyskinesia improved today; anticipate Philomena could return to [facility] as soon as tomorrow. CM coordinated tentative discharge with Provider and Svitlana at &R for 1030 tomorrow morning, as Svitlana reports this is when the W/C van is able to offer transportation. CM continues to follow.
[2018-08-03] MEDS: Ketoconazole 2% CREAM 15 GM TUBE TP (20:40)
[2018-08-03] MEDS: Nystatin POWDER 60 GM JAR TP (20:41)
[2018-08-03] MEDS: clonazePAM 0.5 MG TAB UD (21:28)
[2018-08-03] MEDS: Simvastatin 20 MG TAB UD (21:29)
[2018-08-04] MEDS: Insulin Aspart 300 UNITS/3 ML PEN SC (06:06)
[2018-08-04] MEDS: Levothyroxine 125 MCG TAB UD (06:06)
[2018-08-04 07:20] VITALS: BP 113/58; PULSE 70; RESP 18; TEMP 36.4; O2SAT 93
[2018-08-04 07:30] VITALS: BP 121/73; PULSE 76; RESP 18; TEMP 35.8; O2SAT 96
[2018-08-04] MEDS: Enoxaparin 40 MG/0.4 ML SYR SC (08:19)
[2018-08-04] MEDS: Magnesium Oxide 400 MG TAB UD (08:20)
[2018-08-04] MEDS: Triamcinolone 0.1% CR 15 GM TUBE TP (08:21)
[2018-08-04] MEDS: Aspirin 81 MG CHEW UD (08:22)
[2018-08-04] MEDS: Escitalopram 20 MG TAB UD (08:22)
[2018-08-04] MEDS: Multivitamin TAB 1 TAB UD (08:23)
[2018-08-04] MEDS: Dexlansoprazole 30 MG CAP PO (08:24)
[2018-08-04] MEDS: Propranolol 20 MG TAB NG (08:24)
--- NOTE | 2018-08-04 08:28 | EVALE_ITS ---
Date of service: 08/04/18 Time of Service: 07:15 Speech Therapy Evaluation Note: REFERRING PROVIDER: Wood Bose BACKGROUND This is a 72 year old right-handed female who presented to the ED from [facility] on 08/01/18 with c/o L chest and back pain and a possible fall. She was admitted for observation and further testing. Because of a diminished amount of verbal communication, a speech evaluation was requested. PMH: severe tardive dyskinesia, cognitive/developmental delay, bipolar 1 disorder, schizophrenia, depression with anxiety, HTN, DM II, GERD, sensorineural hearing loss. The patient (pt) is able to provide some additional background information. She states that she had chest pain on the left side which continues this morning. She also reports having had a communication board at the rehab which she used sometimes. This pt is known to me from having seen her for inpt swallow evals on 06/10/18 and 06/27/18. During both times, the pt used a combination of gesture & speech to communicate due to a significant lingual & mandibular tremor (due to tardive dyskinesia). OBJECTIVE Nursing reports that the patient's speech is much better today than yesterday. The pt is sleeping in her gerichair but wakes easily to my verbal greeting. She makes good direct eye contact and offers a smile and a delayed but intelligible verbal greeting. She shows a paucity of conversational speech but does respond to questions. She is A & O x 3 and able to follow 2-step directions inconsistently. Regarding educational hx, she states that she went as far as eighth grade. She shows a sustained even rate of mandibular & lingual tremor both during & in the absence of speech. She is totally edentulous & without dentures. Both of these factors cause a decreased articulatory preciseness and a slow speech rate resulting in decreased speech intelligibility estimated at 75%. She tends to automatically use a thumbs-up or thumbs-down for Y/N but when prompted can say the words 'yes' & 'no' and can also use a head-nod & head-shake . Regarding language skills the following is noted. - Auditory comprehension of basic Y/N questions: 100% - Confrontation naming of real objects: 100% - Convergent naming of 1 category: 100% - Divergent naming of 1 category: max # of items = 5 - Repetition of function phrase: 100% - Serial speech (counting): 100% - Word prediction task x 1: 100% - Oral Reading: - 1 & 2-syllable words: 100% - short sentence (5 syllables): 100% - medium-length sentence (9 syllables): 45% - Writing not assessed due to hand contractures and UE tremors. The pt shows only minimal improvement in speech intelligibility at the single word level with max cueing for use of increased oral motor movement for more precise consonant production. The pt is instructed in the use of a new communication board. She demonstrates appropriate use of the subjective pain scale and can read phrases connected to pictures. INTERPRETATION The pt is felt to be back to what her baseline was at her last evaluation visit with me just over a month ago. It is likely that the decreased amount of speech was due to her body's struggle to deal with her new health crisis. Now that she is having those concerns addressed and is feeling a bit better, her speech/language skills are returning to what was normal for her. RECOMMENDATIONS 1. Continue to encourage Philomena to use verbal communication. 2. Aid her in the use of the communication board prn. 3. No speech therapy is indicated at this time. Thank you for referring this pt.
[2018-08-04] MEDS: Acetaminophen Solution 650 MG/20.3 ML CUP UD (08:36)
[2018-08-04] MEDS: Nystatin POWDER 60 GM JAR TP (09:33)
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
--- NOTE | 2018-08-04 11:30 | OT.INDS ---
Date of service: 08/04/18 Time of Service: 09:30 Occupational Therapy Notes Occupational Therapy Inpatient Discharge Summary Date: 08/04/18 Dates of Service: 08/02/18-08/04/18 Referring Doctor:Maryse Jewell MD OT Orders: Eval and Treat Precautions: Fall, Standard PATIENT PROFILE/ADMITTING DIAGNOSIS: Pt is a 72 year old female who was admitted through the ER for chest pain with increased tardive dyskinesia. Per pts chart there is an inconsistent ?fall? per pts roommate at the [facility]. Past Medical History: GERD, Hyperlipidemia, Hypertension, Hypothyroidism, Migraine headache without aura, Obstructive sleep apnea on CPAP, Osteoarthritis, osteoporosis, Sensorineural hearing loss, bilateral,Tardive akathisia, Tardive dyskinesia, Type 2 diabetes mellitus, Urinary incontinence,Daniel's esophagus, Chronic low back pain, Depression with anxiety,. Development delay, borderline, Dysphagia. Social History/Home Situation: Pt currently resides at the [facility]. Pt states that she requires (A) for ADL/IADL routines. She is unable to get dressed, bath or perform functional mobility without (A). Equipment owned/DME: Pt resides at [facility] at this time. SUBJECTIVE: Pt was sitting in chair when OT arrived. She was agreeable to OT session. OBJECTIVE: ROM: RUE Shoulder flexion 160*, elbow WNL, hand/digits WNL L UE Shoulder flexion 160*, elbow WNL, hand/digits WNL STRENGTH: RUE Shoulder flexion 3+/5, bicep 4-/5, tricep 4-/5, credit intern is weak but symmetrical LUE Shoulder flexion 3+/5, bicep 4-/5, tricep 4-/5, credit intern is weak but symmetrical FUNCTIONAL MOBILITY/ADLS: Sit to stand- min (A) x2 Stand to sit- min (A) x2 Pivot to chair- Mod (A)x2 Toileting- Commode min (A) Bathing- Max (A) set up (I) upper body and LE with mod vc throughout, max (A) hair and back Dressing- UE: (I), LE: Mod (A) in sitting position BALANCE: Static sitting- Good Dynamic Sitting- Fair Static standing- good Dynamic standing- poor ASSESSMENT: Patient is a 72-year-old female referred to occupational therapy services with diagnosis of chest pain with increased tardive dyskinesia. Pt was seen for 2 skilled OT sessions. She has decreased functional mobility requiring multiple verbal and tactile cues. In terms of ADLs she was able to perform with increased (I) but still required min-mod (A) throughout. She was discharged this morning to return to [facility] and rehab. GOALS 1. Transfers SBA, FWW- not met 2. Dressing Sitting in chair pt will require mod (A) for LE and min (A) for UE dressing. - Met 3. Bathing sitting in chair with max (A) set up (I) with UE bathing and Mod (A) LE bathing. - Met 4. Toileting Min (A) on toilet. - Not met 5. Eating Min (A) with adaptive silverware- Not met 6. Standing at sink with FWW (I) - Not met PLAN OF CARE/TREATMENT PLAN: Pt was discharged to return to [facility] and rehab this morning. DISCHARGE RECOMMENDATIONS OT recommends that pt return to [facility] when medically cleared per MD. TREATMENT TIME/MINUTES/CODES: [id number], 30 minutes (09:30) [facility]
--- NOTE | 2018-08-04 11:37 | OTDS_ITS ---
Date of service: 08/04/18 Time of Service: 09:30 Occupational Therapy Notes Occupational Therapy Inpatient Discharge Summary Date: 08/04/18 Dates of Service: 08/02/18-08/04/18 Referring Doctor:Maryse Jewell MD OT Orders: Eval and Treat Precautions: Fall, Standard PATIENT PROFILE/ADMITTING DIAGNOSIS: Pt is a 72 year old female who was admitted through the ER for chest pain with increased tardive dyskinesia. Per pts chart there is an inconsistent ?fall? per pts roommate at the [facility]. Past Medical History: GERD, Hyperlipidemia, Hypertension, Hypothyroidism, Migraine headache without aura, Obstructive sleep apnea on CPAP, Osteoarthritis, osteoporosis, Sensorineural hearing loss, bilateral,Tardive akathisia, Tardive dyskinesia, Type 2 diabetes mellitus, Urinary incontinence,Daniel's esophagus, Chronic low back pain, Depression with anxiety,. Development delay, borderline, Dysphagia. Social History/Home Situation: Pt currently resides at the [facility]. Pt states that she requires (A) for ADL/IADL routines. She is unable to get dressed, bath or perform functional mobility without (A). Equipment owned/DME: Pt resides at [facility] at this time. SUBJECTIVE: Pt was sitting in chair when OT arrived. She was agreeable to OT session. OBJECTIVE: ROM: RUE Shoulder flexion 160*, elbow WNL, hand/digits WNL L UE Shoulder flexion 160*, elbow WNL, hand/digits WNL STRENGTH: RUE Shoulder flexion 3+/5, bicep 4-/5, tricep 4-/5, parts identification technician is weak but symmetrical LUE Shoulder flexion 3+/5, bicep 4-/5, tricep 4-/5, parts identification technician is weak but symmetrical FUNCTIONAL MOBILITY/ADLS: Sit to stand- min (A) x2 Stand to sit- min (A) x2 Pivot to chair- Mod (A)x2 Toileting- Commode min (A) Bathing- Max (A) set up (I) upper body and LE with mod vc throughout, max (A) hair and back Dressing- UE: (I), LE: Mod (A) in sitting position BALANCE: Static sitting- Good Dynamic Sitting- Fair Static standing- good Dynamic standing- poor ASSESSMENT: Patient is a 72-year-old female referred to occupational therapy services with diagnosis of chest pain with increased tardive dyskinesia. Pt was seen for 2 skilled OT sessions. She has decreased functional mobility requiring multiple verbal and tactile cues. In terms of ADLs she was able to perform with increased (I) but still required min-mod (A) throughout. She was discharged this morning to return to [facility] and rehab. GOALS 1. Transfers SBA, FWW- not met 2. Dressing Sitting in chair pt will require mod (A) for LE and min (A) for UE dressing. - Met 3. Bathing sitting in chair with max (A) set up (I) with UE bathing and Mod (A) LE bathing. - Met 4. Toileting Min (A) on toilet. - Not met 5. Eating Min (A) with adaptive silverware- Not met 6. Standing at sink with FWW (I) - Not met PLAN OF CARE/TREATMENT PLAN: Pt was discharged to return to [facility] and rehab this morning. DISCHARGE RECOMMENDATIONS OT recommends that pt return to [facility] Rehab when medically cleared per MD. TREATMENT TIME/MINUTES/CODES: [id number], 30 minutes (09:30) [facility]
--- NOTE | 2018-08-04 12:00 | PT.INDS ---
Date of service: 08/04/18 Time of Service: 12:00 PT Notes Inpatient Physical Therapy Discharge Summary Dates: 08/04/2018 Dates of Service: 08/02/2018 through 08/03/2018 This is a clinical summary of care provided on the duration of dates listed above. No charge was made in the completion of this documentation. Referring Doctor: Maryse Jewell MD PT Orders: PT CONSULT: Eval/treat Precautions: Fall. Contact precautions. Patient Profile/Admitting Diagnosis: Patient is a 72-year-old female who presented to the ED on 08/01/2018 with complaints of right left-sided shoulder pain and back pain. Patient has been a resident of [facility] since 07/13/2018. She started to complain of chest pain and back pain in the morning of 08/01/2018 with a questionable fall the previous night. ED notes stated that patient claims she fell but said event was unwitnessed. At the ED, patient had shoulder x-ray, chest CT, and chest x-ray which showed negative findings for fracture, pulmonary embolism, or any abnormality. EKG showed no acute changes. UA was negative. CT angiogram results are still pending. PMHX: Medical History Daniel's esophagus Chronic low back pain Depression with anxiety Development delay, borderline Dysphagia GERD Hyperlipidemia Hypertension Hypothyroidism Migraine headache without aura Obstructive sleep apnea on CPAP Osteoarthritis Osteoporosis Sensorineural hearing loss (bilateral) Tardive dyskinesia Type 2 Diabetes Mellitus Urgency incontinence Schizophrenia Surgical History H/O bilateral cataract extraction H/O tubal ligation H/O umbilical hernia repair H/O hysterectomy with bilateral oopherectomy S/p cholecystectomy S/P PEG tube placement Social History/Home Situation: Patient has been rehabilitated for mobility progression and strengthening at the [facility] since 07/13/2018 with plan to transition back to her sister's house at safest mobility level. Philomena lived with her sister Chantal since February of last year who provides assistance with bathing. Sister states that she uses a folding chair, places chair inside the tub, and have Philomena step over and onto chair for bathing. Philomena goes to adult daycare via [facility] on a daily basis from Mondays through Fridays. At her sister's house, there is 4 steps to enter without rails but sister is able to provide minimal assistance to Philomena in and out of the house. Chantal states that she is thinking of having a ramp built at her house for easy access for Philomena. Chantal states that Philomena has been able to walk from her bedroom to the bathroom about 20-30 feet using her 4 wheeled walker. Patient has had 3 falls the past 12 months. Equipment Owned/DME: Sister states that Philomena has hospital bed that they have been renting as she states PCP has been having an issue about justifying her need for bed, 4WW but with left break broken. Patient also has a CPAP machine that she has not been using according to her sister Chantal due to the discomfort. Subjective: NT Objective: General Observation: NT Mental Status: NT Pain: NT ROM: Right Upper Extremity: WFL Left Upper Extremity: WFL Right Lower Extremity: Hip flexion to about 30 degrees while seated on chair. Knee and ankle joints WFL. Left Lower Extremity: Hip flexion to about 30 degrees while seated on chair. Knee and ankle joints WFL. Strength: Right Upper Extremity: WFL Left Upper Extremity: WFL Right Lower Extremity: Hip flexors 3-/5. Hip extensors 3-/5. Knee flexors 4-/5. Knee extensors 3+/5. Ankle plantar flexors 4-/5. Ankle dorsiflexors 4-/5. Left Lower Extremity: Hip flexors 3-/5. Hip extensors 3-/5. Knee flexors 4-/5. Knee extensors 3+/5. Ankle plantar flexors 4-/5. Ankle dorsiflexors 4-/5. Sensation: Intact as to pain and pressure to bilateral lower extremities. Bed Mobility/Transfers: Rolling min assist Supine to sit min assist Sit to supine min assist Sit to stand min assist Stand to sit min assist Bed to chair min assist Chair to bed min assist Gait: Patient was able to take 15 feet x 2 with FWW with minimal assist of 1 and stand by assist of student nurse, minimal verbal cues for safety with increased trunk leaning to the right seen. Step length and height significantly reduced. Balance: Static Sitting: Fair Dynamic Sitting: Fair Static Standing: Fair Dynamic Standing: Fair Assessment: Patient is a 72 year old female referred to physical therapy services with the diagnosis of chest pain and generalized weakness with a questionable in the bathroom at the [facility]. Patient presents with clinical signs and symptoms consistent with current/admitting diagnoses that have resulted to mobility limitations, gait instability, generalized weakness, and lack of motor control as demonstrated by the following impairment level findings: 1. Decreased strength to B LE major muscle groups 2. Impaired balance 3. Impaired activity tolerance 4. Limitation of joint range of motion in the hips 5. Dyskinesia Impairments are contributing to the following functional limitations: 1. Decreased bed mobility skills 2. Increased dependence with transfers 3. Inability to safely ambulate without assistive device and physical assistance 4. Increase completion time for mobility ADL performance 5. Increased fall risk 6. Inability to negotiate steps alone safely Goals: Goals X1 week 1. Supine-Sit S NOT MET 2. Sit-Supine S NOT MET 3. Sit-Stand S NOT MET 4. Stand-Sit S NOT MET 5. Bed-Chair S NOT MET 6. Chair-Bed S NOT MET 7. Gait on level surface ambulation supervision with use of least restrictive device for at least 100 feet without report of pain nor dyspnea NOT MET 8. Stairs independent while holding onto bilateral rails for at least 10 steps without report of pain nor dyspnea NOT MET 9. Supervision with home exercise program with sister Chantal NOT MET 10. Balance good for static and dynamic standing NOT MET DISCHARGE RECOMMENDATIONS: Patient will benefit from [facility] facility placement in order to progress mobility level, strength, and balance in preparation for a safe discharge to home. TREATMENT CODE/TIME: NC. Thank you for this referral. Rox Brown, PT, DPT, CLT [facility]
--- NOTE | 2018-08-04 12:03 | INDS_ITS ---
Date of service: 08/04/18 Time of Service: 12:00 PT Notes Inpatient Physical Therapy Discharge Summary Dates: 08/04/2018 Dates of Service: 08/02/2018 through 08/03/2018 This is a clinical summary of care provided on the duration of dates listed above. No charge was made in the completion of this documentation. Referring Doctor: Maryse Jewell MD PT Orders: PT CONSULT: Eval/treat Precautions: Fall. Contact precautions. Patient Profile/Admitting Diagnosis: Patient is a 72-year-old female who presented to the ED on 08/01/2018 with complaints of right left-sided shoulder pain and back pain. Patient has been a resident of [facility] since 07/13/2018. She started to complain of chest pain and back pain in the morning of 08/01/2018 with a questionable fall the previous night. ED notes stated that patient claims she fell but said event was unwitnessed. At the ED, patient had shoulder x-ray, chest CT, and chest x-ray which showed negative findings for fracture, pulmonary embolism, or any abnormality. EKG showed no acute changes. UA was negative. CT angiogram results are still pending. PMHX: Medical History Daniel's esophagus Chronic low back pain Depression with anxiety Development delay, borderline Dysphagia GERD Hyperlipidemia Hypertension Hypothyroidism Migraine headache without aura Obstructive sleep apnea on CPAP Osteoarthritis Osteoporosis Sensorineural hearing loss (bilateral) Tardive dyskinesia Type 2 Diabetes Mellitus Urgency incontinence Schizophrenia Surgical History H/O bilateral cataract extraction H/O tubal ligation H/O umbilical hernia repair H/O hysterectomy with bilateral oopherectomy S/p cholecystectomy S/P PEG tube placement Social History/Home Situation: Patient has been rehabilitated for mobility progression and strengthening at the [facility] since 07/13/2018 with plan to transition back to her sister's house at safest mobility level. Philomena lived with her sister Chantal since February of last year who provides assistance with bathing. Sister states that she uses a folding chair, places chair inside the tub, and have Philomena step over and onto chair for bathing. Philomena goes to adult daycare via [facility] on a daily basis from Mondays through Fridays. At her sister's house, there is 4 steps to enter without rails but sister is able to provide minimal assistance to Philomena in and out of the house. Chantal states that she is thinking of having a ramp built at her house for easy access for Philomena. Chantal states that Philomena has been able to walk from her bedroom to the bathroom about 20-30 feet using her 4 wheeled walker. Patient has had 3 falls the past 12 months. Equipment Owned/DME: Sister states that Philomena has hospital bed that they have been renting as she states PCP has been having an issue about justifying her need for bed, 4WW but with left break broken. Patient also has a CPAP machine that she has not been using according to her sister Chantal due to the discomfort. Subjective: NT Objective: General Observation: NT Mental Status: NT Pain: NT ROM: Right Upper Extremity: WFL Left Upper Extremity: WFL Right Lower Extremity: Hip flexion to about 30 degrees while seated on chair. Knee and ankle joints WFL. Left Lower Extremity: Hip flexion to about 30 degrees while seated on chair. Knee and ankle joints WFL. Strength: Right Upper Extremity: WFL Left Upper Extremity: WFL Right Lower Extremity: Hip flexors 3-/5. Hip extensors 3-/5. Knee flexors 4- /5. Knee extensors 3+/5. Ankle plantar flexors 4-/5. Ankle dorsiflexors 4-/5. Left Lower Extremity: Hip flexors 3-/5. Hip extensors 3-/5. Knee flexors 4-/5. Knee extensors 3+/5. Ankle plantar flexors 4-/5. Ankle dorsiflexors 4-/5. Sensation: Intact as to pain and pressure to bilateral lower extremities. Bed Mobility/Transfers: Rolling min assist Supine to sit min assist Sit to supine min assist Sit to stand min assist Stand to sit min assist Bed to chair min assist Chair to bed min assist Gait: Patient was able to take 15 feet x 2 with FWW with minimal assist of 1 and stand by assist of student nurse, minimal verbal cues for safety with increased trunk leaning to the right seen. Step length and height significantly reduced. Balance: Static Sitting: Fair Dynamic Sitting: Fair Static Standing: Fair Dynamic Standing: Fair Assessment: Patient is a 72 year old female referred to physical therapy services with the diagnosis of chest pain and generalized weakness with a questionable in the bathroom at the [facility]. Patient presents with clinical signs and symptoms consistent with current/admitting diagnoses that have resulted to mobility limitations, gait instability, generalized weakness, and lack of motor control as demonstrated by the following impairment level findings: 1. Decreased strength to B LE major muscle groups 2. Impaired balance 3. Impaired activity tolerance 4. Limitation of joint range of motion in the hips 5. Dyskinesia Impairments are contributing to the following functional limitations: 1. Decreased bed mobility skills 2. Increased dependence with transfers 3. Inability to safely ambulate without assistive device and physical assistance 4. Increase completion time for mobility ADL performance 5. Increased fall risk 6. Inability to negotiate steps alone safely Goals: Goals X1 week 1. Supine-Sit S NOT MET 2. Sit-Supine S NOT MET 3. Sit-Stand S NOT MET 4. Stand-Sit S NOT MET 5. Bed-Chair S NOT MET 6. Chair-Bed S NOT MET 7. Gait on level surface ambulation supervision with use of least restrictive device for at least 100 feet without report of pain nor dyspnea NOT MET 8. Stairs independent while holding onto bilateral rails for at least 10 steps without report of pain nor dyspnea NOT MET 9. Supervision with home exercise program with sister Chantal NOT MET 10. Balance good for static and dynamic standing NOT MET DISCHARGE RECOMMENDATIONS: Patient will benefit from jail facility placement in order to progress mobility level, strength, and balance in p reparation for a safe discharge to home. TREATMENT CODE/TIME: GA. Thank you for this referral. Rox Brown, PT, DPT, CLT [facility]
== END 2018-08-04 10:46 | disposition skilled nursing facility (03) | DRG 93 ==
LOC: ER 15:20 → MS 16:32
PROVIDERS: Admitting Provider Family Medicine; Emergency Provider Student in an Organized Health Care Education/Training Program; PCP Family Medicine; Visit Provider Internal Medicine
DX: F07.89 Other personality and behavioral disorders due to known physiological condition (principal); G24.01 Drug induced subacute dyskinesia; F20.9 Schizophrenia, unspecified; F31.9 Bipolar disorder, unspecified; Z93.1 Gastrostomy status; R13.10 Dysphagia, unspecified; W19.XXXA Unspecified fall, initial encounter; B36.9 Superficial mycosis, unspecified; Z79.84 Long term (current) use of oral hypoglycemic drugs; Z66 Do not resuscitate; E03.9 Hypothyroidism, unspecified; G47.33 Obstructive sleep apnea (adult) (pediatric); E11.9 Type 2 diabetes mellitus without complications; R32 Unspecified urinary incontinence; K21.9 Gastro-esophageal reflux disease without esophagitis; Z51.5 Encounter for palliative care
CPT/HCPCS: 36410; 36415; 36416; 71275; 80048; 80053; 82962; 83690; 87040; 87081; 93005; 96105; 96374; 97110; 97162; 97166; 97530; 97535; 99219; 99232; 99239; 99253; 99285; J1650; 70450; 71046; 73030; 81003; 83605; 83735; 83880; 84484; 85025; 85379; 93010; 99225; G0378; J3490

== ENCOUNTER → 2018-08-03 10:52 | Outpatient (BNVA) | payer MEDICARE, MEDICAID, SELFPAY | PROVIDERS: PCP Family Medicine; Visit Provider Psychiatry & Neurology Neurology | DX: R69 Illness, unspecified (principal) ==

== ENCOUNTER → 2018-08-04 15:07 | Outpatient (BNVA) | payer MEDICARE, MEDICAID, SELFPAY | PROVIDERS: PCP Family Medicine; Visit Provider Psychiatry & Neurology Neurology | DX: G24.01 Drug induced subacute dyskinesia (principal); I48.92 Unspecified atrial flutter; G25.71 Drug induced akathisia | CPT/HCPCS: 99214 ==

== ENCOUNTER 2018-08-15 10:25 | Outpatient (CLI) | payer MEDICARE, MEDICAID, SELFPAY ==
[2018-08-15 11:12] LABS: Abs Immature Grans 0.02 k/cumm (0.0-0.09); Absolute Basophil Count 0.04 k/cumm (0.0-0.2); Absolute Eosinophil Count 0.25 k/cumm (0.0-0.7); Absolute Lymphocyte Count 2.61 k/cumm (1.2-3.4); Absolute Monocyte Count 0.52 k/cumm (0.11-0.7); Absolute Neutrophil Count 4.27 k/cumm (1.2-6.7); Basophils % 0.5; Eosinophils % 3.2; HCT 42.4 % (36.0-46.0); HGB 14.1 g/dL (12.0-15.5); Immature Grans % 0.3; Lymphocytes % 33.9; Mean Corp. HGB Concentration 33.3 g/dL (32.0-36.0); Mean Corpuscular Hemoglobin 31.2 pg (27.0-33.0); Mean Corpuscular Volume 93.8 fL (80-95); Mean Platelet Volume 12.3 fL (8.0-11.0); Monocytes % 6.7; Neutrophils % 55.4; Platelet Count 262 x1000/uL (130-400); RBC 4.52 m/cumm (4.00-5.20); RBC Distribution Width 13.2 % (11.7-14.6); White Blood Cell Count 7.71 k/cumm (4.4-10.8)
[2018-08-15 11:39] LABS: Anion Gap 11.2 mmol/L (3-11); BUN 16 mg/dL (7-18); CO2 25.8 mmol/L (21.0-32.0); CREATININE 0.75 mg/dL (0.55-1.02); Calcium 10.1 mg/dL (8.5-10.1); Chloride 101 mmol/L (98-107); Glucose 212 mg/dL (70-100); Potassium 4.6 mmol/L (3.5-5.1); Sodium 138 mmol/L (136-145)
[2018-08-15 11:45] LABS: Polychromasia Present
== END 2018-08-15 10:45 ==
PROVIDERS: PCP Family Medicine; Visit Provider Family Medicine
DX: R03.0 Elevated blood-pressure reading, without diagnosis of hypertension (principal)
CPT/HCPCS: 80048; 85025

== ENCOUNTER → 2019-01-05 08:49 | Outpatient (BNVA) | payer MEDICARE, MEDICAID, SELFPAY | PROVIDERS: PCP Family Medicine; Referring Provider Family Medicine; Visit Provider Surgery | DX: I10 Essential (primary) hypertension (principal); Z93.1 Gastrostomy status | CPT/HCPCS: 99211; 99213 ==

== ENCOUNTER 2019-05-04 11:37 | Outpatient (REF) | payer MEDICARE, MEDICAID, SELFPAY ==
[2019-05-04 18:51] LABS: COMMENT (LAB VIEW ONLY) 131.02 mg/dL; Microalb ug/mg Crea 44.2 ug/mg Cr
== END 2019-05-04 11:57 ==
LOC: NCHCN 11:37
PROVIDERS: PCP Family Medicine; Visit Provider Family Medicine
DX: E11.9 Type 2 diabetes mellitus without complications (principal)
CPT/HCPCS: 82043; 82570

== ENCOUNTER 2019-07-27 09:11 | Outpatient (REF) | payer MEDICARE, MEDICAID, SELFPAY ==
[2019-07-27 17:54] LABS: Anion Gap 8.8 mmol/L (3-11); BUN 9 mg/dL (7-18); CO2 25.2 mmol/L (21.0-32.0); Chloride 103 mmol/L (98-107); Glucose 185 mg/dL (74-106); Magnesium 1.8 mg/dL (1.8-2.4); Potassium 4.4 mmol/L (3.5-5.1); Sodium 137 mmol/L (136-145); TSH (W/Ref FT4) 0.95 uIU/mL (0.36-3.74)
[2019-07-27 18:21] LABS: Hemoglobin A1C 7.9 % (3.8-5.6)
== END 2019-07-27 09:31 ==
LOC: NCHCN 09:11
PROVIDERS: PCP Family Medicine; Visit Provider Family Medicine
DX: E11.9 Type 2 diabetes mellitus without complications (principal); I50.30 Unspecified diastolic (congestive) heart failure
CPT/HCPCS: 80048; 83036; 83735; 84443

== ENCOUNTER 2019-10-05 00:18 | Outpatient (CLI) | payer MEDICARE, MEDICAID, SELFPAY ==
--- NOTE | 2019-10-05 15:36 | DI.MAMMO_ITS ---
EXAM: MG MAMMO SCREENING CLINICAL HISTORY: SCREENING, Z12.31 TECHNIQUE: Bilateral full field digital CC and MLO mammographic images were obtained with 3D tomosyn thesis and utilizing computer aided detection (CAD). COMPARISON: Available for comparison. FINDINGS: Patient is unable to hold completely still. Masses/Architectural Distortion: None seen. Microcalcifications: No suspicious pleomorphic-type are seen. Skin Thickening/Nipple Retraction: None. IMPRESSION: 1. No significant interval change with no specific features of malignancy noted. 2. Unless there is more urgent need, screening mammography is recommended, as per [employer] guidelines. BI-RADS Category 1 - Negative Breast Density - Category B - Scattered areas of fibroglandular density A negative radiographic report should not delay biopsy if a dominant or clinically suspicious mass is present. Up to ten percent of cancers are not identified on mammography. A negative report may reinforce clinical impression. Adenosis and dense breasts may obscure an underlying neoplasm. False positive reports average 6 to 10%. Patient will receive a letter notifying them of these results.
== END 2019-10-05 00:38 ==
PROVIDERS: PCP Family Medicine; Visit Provider Family Medicine
DX: Z12.31 Encounter for screening mammogram for malignant neoplasm of breast (principal)
CPT/HCPCS: 77063; 77067

== ENCOUNTER 2019-10-24 13:58 | Emergency (ER) | payer MEDICARE, MEDICAID, SELFPAY ==
[2019-10-24] VITALS (64 sets, daily range): BP systolic 111–150; BP diastolic 59–124; PULSE 77–101; RESP 4–33; TEMP 36.5; O2SAT 91–97
--- NOTE | 2019-10-24 14:30 | RT.EKG_ITS ---
APPROVED REPORT Exam: Resting ECG Patient Location: E HR:98 bpm ECG Measurements Heart Rate 98 AXIS AR 161 P 36 QRSd 97 QRS 2 QT 357 T -9 QTc [address] No acute ST/T wave ischemic findings. No acute change from previous EKG.
--- NOTE | 2019-10-24 14:37 | DI.RAD_ITS ---
EXAM: XR PORTABLE CHEST AP CLINICAL HISTORY: cough, sob, r/o acute disease TECHNIQUE: 2D digital imaging was performed. COMPARISON: CR XR CHEST 2V PA LATERAL from 08/01/2018 FINDINGS: MEDIASTINUM: Normal. HEART: Normal. PULMONARY VASCULATURE: Normal. LUNGS: Infiltrate in the left lung base. Right lung appears clear. PLEURAL SPACE: No pleural effusion or pneumothorax. BONE:Within normal limits for the patient's age. OTHER FINDINGS:Low lung volumes. IMPRESSION: Left basilar infiltrate which may reflect pneumonia or atelectasis. DATA REPOSITORY: RADIATION DOSE DELIVERED:
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
[2019-10-24 15:17] LABS: ALT 21 U/L (14-59); AST 15 U/L (15-37); Albumin 3.1 g/dL (3.4-5.0); Alkaline Phosphatase 133 U/L (46-116); Anion Gap 7.7 mmol/L (3-11); BUN 6 mg/dL (7-18); Bilirubin, Total 1.1 mg/dL (0.2-1.0); CO2 26.3 mmol/L (21.0-32.0); CREATININE 0.92 mg/dL (0.55-1.02); Calcium 8.6 mg/dL (8.5-10.1); Chloride 98 mmol/L (98-107); Glucose 419 mg/dL (74-106); Magnesium 1.7 mg/dL (1.8-2.4); Potassium 4.2 mmol/L (3.5-5.1); Sodium 132 mmol/L (136-145); Total Protein 7.7 g/dL (6.4-8.2)
[2019-10-24 15:19] LABS: Troponin I < 0.05 ng/mL (<0.06)
[2019-10-24 15:24] LABS: Abs Immature Grans 0.08 10^3/uL (0.0-0.06); Absolute Lymphocyte Count 3.58 10^3/uL (1.2-3.4); Basophils % 0.4; Eosinophils % 0.6; HCT 42.8 % (36.0-46.0); HGB 14.4 g/dL (11.2-15.7); Immature Grans % 0.5; Lymphocytes % 22.5; MCH 29.9 pg (27.0-33.0); MCHC 33.6 % (32.0-36.0); MPV 11.1 fL (8.0-11.0); Monocytes % 7.3; Neutrophils % 68.7; Nucleated RBC 0 %; Platelet Count 211 10^3/uL (130-400); RBC 4.81 10^6/uL (3.93-5.22); RDW 11.9 % (11.7-14.6); RDW-SD 38.3 fL; WBC 15.92 10^3/uL (4.4-10.8)
[2019-10-24 15:33] LABS: Absolute Basophil Count 0.06 10^3/uL (0.0-0.2); Absolute Monocyte Count 1.16 10^3/uL (0.1-0.8); Absolute Neutrophil Count 10.94 10^3/uL (1.2-6.7)
[2019-10-24] MEDS: Normal Saline 1,000 ML 1000 ML IV (15:45)
[2019-10-24] MEDS: Albuterol/Ipratropium 3 ML UPD VIAL UPD (16:00)
[2019-10-24] MEDS: methylPREDNISolone SUCC 125 MG VIAL IVP (16:01)
[2019-10-24] MEDS: Ondansetron 4 MG/2 ML VIAL IVP (16:01)
[2019-10-24] MEDS: levoFLOXacin 500 MG, levoFLOXacin 250 MG 750 MG PO (16:37)
[2019-10-24] MEDS: Benzonatate 100 MG CAP 200 MG PO (18:00)
== END 2019-10-24 18:30 | disposition home or self-care (01) ==
PROVIDERS: Emergency Provider Physician Assistant; PCP Family Medicine
DX: J18.9 Pneumonia, unspecified organism (principal); R06.02 Shortness of breath; F20.9 Schizophrenia, unspecified; E11.65 Type 2 diabetes mellitus with hyperglycemia; Z79.4 Long term (current) use of insulin; I10 Essential (primary) hypertension
CPT/HCPCS: 36415; 36416; 80053; 82962; 93005; 94640; 96361; 96374; 96375; 99285; 71045; 83735; 84484; 85025; 93010; J2405; J2930; J7620

== ENCOUNTER 2019-11-02 20:12 | Outpatient (REF) | payer MEDICARE, MEDICAID, SELFPAY ==
[2019-11-02 18:59] LABS: Hemoglobin A1C 10.1 % (3.8-5.6)
== END 2019-11-02 20:32 ==
LOC: NCHCN 20:12
PROVIDERS: PCP Family Medicine; Visit Provider Family Medicine
DX: E11.9 Type 2 diabetes mellitus without complications (principal)
CPT/HCPCS: 83036

== ENCOUNTER 2019-11-08 00:49 | Outpatient (CLI) | payer MEDICARE, MEDICAID, SELFPAY | END 2019-11-08 01:09 | PROVIDERS: PCP Family Medicine; Visit Provider Family Medicine | DX: R69 Illness, unspecified (principal) ==

== ENCOUNTER 2019-11-21 12:08 | Inpatient (IN) | payer MEDICARE, MEDICAID, SELFPAY ==
[2019-11-21] VITALS (50 sets, daily range): BP systolic 110–140; BP diastolic 60–98; PULSE 83–141; RESP 2–32; TEMP 35.2–37.7; O2SAT 89–98
--- NOTE | 2019-11-21 12:30 | DI.RAD_ITS ---
EXAM: XR PORTABLE CHEST AP CLINICAL HISTORY: SOB, PUI, hx of Pneumonia TECHNIQUE: 2D digital imaging was performed. COMPARISON: CR XR CHEST 2V PA LATERAL from 08/01/2018 FINDINGS: The exam is limited by poor pulmonary inflation. There are increased densities at the left lung base which likely represent atelectasis. Pneumonia cannot be excluded on the basis of this exam. There are underlying fibrotic changes and old bilateral rib fractures. The heart size is within normal douglas its. IMPRESSION: Limited exam. Left lower lobe atelectasis versus infiltrate. DATA REPOSITORY: RADIATION DOSE DELIVERED:
--- NOTE | 2019-11-21 12:30 | RT.EKG_ITS ---
APPROVED REPORT Exam: Resting ECG Patient Location: E HR:91 bpm ECG Measurements Heart Rate 91 AXIS IA 156 P 50 QRSd 97 QRS -1 QT 356 T -2 QTc 438 Conclusion Sinus rhythm...normal P axis, V-rate 60- 99 Inferior infarct, old...Q >35mS, II III aVF
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
[2019-11-21 13:00] LABS: Abs Immature Grans 0.05 10^3/uL (0.0-0.06); Absolute Basophil Count 0.03 10^3/uL (0.0-0.2); Absolute Monocyte Count 1.01 10^3/uL (0.1-0.8); Basophils % 0.3; Eosinophils % 0.9; HCT 42.3 % (36.0-46.0); HGB 14.3 g/dL (11.2-15.7); Immature Grans % 0.4; Lymphocytes % 27.8; MCH 29.7 pg (27.0-33.0); MCHC 33.8 % (32.0-36.0); MCV 87.9 fL (80-95); MPV 10.6 fL (8.0-11.0); Monocytes % 8.8; Neutrophils % 61.8; Nucleated RBC 0 %; Platelet Count 217 10^3/uL (130-400); RBC 4.81 10^6/uL (3.93-5.22); RDW 12.3 % (11.7-14.6); RDW-SD 39.6 fL; WBC 11.51 10^3/uL (4.4-10.8)
[2019-11-21 13:01] LABS: Absolute Neutrophil Count 7.11 10^3/uL (1.2-6.7)
[2019-11-21] MEDS: Albuterol/Ipratropium 3 ML UPD VIAL UPD ×2 (13:02→14:22)
[2019-11-21] MEDS: methylPREDNISolone SUCC 125 MG VIAL IVP (13:02)
[2019-11-21] MEDS: Normal Saline Flush 10 ML SYR IVP ×2 (13:02→15:01)
[2019-11-21 13:15] LABS: Magnesium 1.9 mg/dL (1.8-2.4); Troponin I < 0.05 ng/mL (<0.06)
[2019-11-21 13:20] LABS: ALT 17 U/L (14-59); AST 10 U/L (15-37); Albumin 2.9 g/dL (3.4-5.0); Alkaline Phosphatase 145 U/L (46-116); Anion Gap 7.2 mmol/L (3-11); BUN 7 mg/dL (7-18); Bilirubin, Total 1.3 mg/dL (0.2-1.0); CO2 25.8 mmol/L (21.0-32.0); CREATININE 0.86 mg/dL (0.55-1.02); Calcium 8.9 mg/dL (8.5-10.1); Chloride 96 mmol/L (98-107); Glucose 423 mg/dL (74-106); Potassium 4.3 mmol/L (3.5-5.1); Sodium 129 mmol/L (136-145); Total Protein 7.3 g/dL (6.4-8.2)
[2019-11-21] MEDS: AZITHROMYCIN 500 MG in Normal Saline 250 ML 250 MG IVPB (15:02)
[2019-11-21] MEDS: Normal Saline 1,000 ML 150 ML IV ×2 (15:02→22:27)
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
[2019-11-21 15:25] LABS: NT-proBNP 117 pg/mL (<300)
[2019-11-21 15:35] LABS: Procalcitonin 0.2 ng/mL
[2019-11-21 16:45] LABS: Troponin I < 0.05 ng/mL (<0.06)
[2019-11-21] MEDS: Enoxaparin 40 MG/0.4 ML SYR SC (17:54)
[2019-11-21] MEDS: Insulin Aspart 300 UNITS/3 ML PEN SC (17:55)
[2019-11-21] MEDS: Acetaminophen 325 MG TAB 650 MG PO (23:55)
[2019-11-22] VITALS (10 sets, daily range): BP systolic 109–133; BP diastolic 58–75; PULSE 78–88; RESP 2–18; TEMP 36.1–36.5; O2SAT 90–98
[2019-11-22] MEDS: Normal Saline 1,000 ML 150 ML IV ×3 (06:03→18:16)
[2019-11-22 07:10] LABS: Abs Immature Grans 0.05 10^3/uL (0.0-0.06); Absolute Basophil Count 0.01 10^3/uL (0.0-0.2); Absolute Lymphocyte Count 2.04 10^3/uL (1.2-3.4); Absolute Monocyte Count 0.28 10^3/uL (0.1-0.8); Basophils % 0.1; HCT 40.5 % (36.0-46.0); HGB 13.7 g/dL (11.2-15.7); Immature Grans % 0.6; Lymphocytes % 25.3; MCH 30.4 pg (27.0-33.0); MCHC 33.8 % (32.0-36.0); MCV 89.8 fL (80-95); MPV 10.7 fL (8.0-11.0); Monocytes % 3.5; Neutrophils % 70.5; Nucleated RBC 0 %; Platelet Count 216 10^3/uL (130-400); RBC 4.51 10^6/uL (3.93-5.22); RDW 12.1 % (11.7-14.6); RDW-SD 39.6 fL; WBC 8.05 10^3/uL (4.4-10.8)
[2019-11-22 07:11] LABS: Absolute Neutrophil Count 5.68 10^3/uL (1.2-6.7)
[2019-11-22 07:30] LABS: Anion Gap 9.8 mmol/L (3-11); BUN 12 mg/dL (7-18); CO2 25.2 mmol/L (21.0-32.0); CREATININE 0.86 mg/dL (0.55-1.02); Calcium 8.9 mg/dL (8.5-10.1); Chloride 103 mmol/L (98-107); Glucose 336 mg/dL (74-106); Potassium 4.3 mmol/L (3.5-5.1); Sodium 138 mmol/L (136-145)
[2019-11-22] MEDS: Insulin Aspart 300 UNITS/3 ML PEN SC ×3 (08:40→17:11)
[2019-11-22] MEDS: Albuterol/Ipratropium 3 ML UPD VIAL UPD ×3 (09:21→17:44)
[2019-11-22] MEDS: Escitalopram 20 MG TAB PO (09:30)
[2019-11-22] MEDS: Propranolol 20 MG TAB PO ×3 (09:30→20:06)
[2019-11-22] MEDS: Aspirin 81 MG CHEW PO (09:30)
[2019-11-22] MEDS: Levothyroxine 112 MCG TAB PO (09:30)
[2019-11-22] MEDS: Insulin Glargine 300 UNITS/3 ML PEN 30 UNITS SC (09:30)
[2019-11-22] MEDS: Nystatin POWDER 15 GM JAR TP ×2 (09:31→20:06)
[2019-11-22 12:48] LABS: COVID-19 RT-PCR UVMMC Result Negative (Negative)
--- NOTE | 2019-11-22 13:12 | INITIAL_ITS ---
- If Service Date Differs Date of service: 11/22/19 Time of Service: 13:12 Care Management Initial Assess REASON FOR HOSPITALIZATION:: Hypoxic, Respiratory Failure PAST MEDICAL HISTORY/PAST SURGICAL HISTORY:: Medical History (Updated 11/21/19 @ 15:10 by Makenzie Abreu NP). Adenomatous polyp of colon (Acute). Ambulatory dysfunction (Chronic). Atrial flutter (Chronic). Arias's esophagus (Chronic). Bipolar disorder (Chronic). Chronic low back pain (Chronic). Cognitive developmental delay (Chronic). Depression with anxiety (Chronic). Developmental delay, borderline (Chronic). DVT prophylaxis (Chronic). Dysphagia (Chronic). Dysphagia causing pulmonary aspiration with swallowing (Chronic). Dysphagia, unspecified (Chronic 06/22/16). Dysuria (Acute). GERD (gastroesophageal reflux disease) (Chronic). Hyperlipidemia (Chronic). Hypertension (Chronic). Hypothyroidism (Chronic). Impaired decision making (Chronic). Migraine headache without aura (Chronic). Obstructive sleep apnea on CPAP (Chronic). On tube feeding diet (Chronic). Osteoarthritis (Chronic). Osteoporosis (Chronic). Schizophrenia (Chronic). Sensorineural hearing loss, bilateral (Chronic 01/07/15). 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 Tardive dyskinesia (Chronic 01/26/17). Tardive dyskinesia (Chronic). Type 2 diabetes mellitus (Chronic). Urgency incontinence (Chronic 05/01/15). Surgical History . H/O bilateral cataract extraction (Resolved). H/O tubal ligation (Resolved). H/O umbilical hernia repair (Resolved). History of hysterectomy with bilateral oophorectomy (Resolved). S/P cholecystectomy (Resolved) PREVIOUS FUNCTIONAL STATUS/SOCIAL/FAMILY SUPPORTS:: Philomena currently resides at her sister's house, Chantal. She has a supportive family; point person is Chantal, Philomena's sister and DPOA. CURRENT FUNCTIONAL STATUS:: Philomena was under precautions today while her Covid test was pending, and BRI was unable to visit with her. Later, Philomena's Covid test returned with a negative result, and BRI attempted to visit with her, and she was sleeping. BRI called Chantal, her caregiver, who stated that things are going well at home. She is not able to go to [place] currently, because they are closed d/t Covid. Chantal also asked if she is on a 'honey thick' diet, which, per report she is on 'moderately thick' diet. CM will continue to follow. ADVANCE DIRECTIVES:: [facility] on file. Has patient been provided with info about the portal/API?: No Did the patient sign up for the portal?: No CODE STATUS:: DNR/DNI INSURANCE COVERAGE / FINANCIAL ISSUES:: [employer]OURTNEY/ MICHAEL CURRENT HOME/COMMUNITY SERVICES/EQUIPMENT:: Palliative Care, [facility] 3x per week. She lives with her sister, Chantal, who helps her with ADL's. PRIMARY CARE PHYSICIAN:: Leti Franz POTENTIAL DISCHARGE NEEDS:: Coordinated return to her sister's home, evaluations for further needs, follow up appointments. PATIENT/FAMILY EDUCATION NEEDS:: Review discharge instructions with caregiver, discussion of goals of care. ANTICIPATED BARRIERS TO DISCHARGE:: None identified at this time. TRANSPORTATION:: Anticipate via private vehicle by family. PLAN:: Anticipate Philomena will return to her sister's house when she is medically cleared. She will follow up with her PCP and discharge plan of care. CM will continue to follow and support discharge planning considerations.
--- NOTE | 2019-11-22 13:18 | W.PM.PROGNOT ---
Date of Service Date of service: 11/22/19 Time of Service: 13:18 Assessment and Plan Assessment and plan (1) Respiratory failure, unspecified with hypoxia: Status: Acute Assessment and plan: respiratory status is stable, repeat troponin negative. procalcitonin and BNP unremarkable so pneumonia and CHF less likely. continue to hold off on antibiotics or further steroids for now. white count has normalized, continue updrafts as needed, oxygen weaning as able. (2) Poorly controlled type 2 diabetes mellitus: Status: Acute Assessment and plan: hemoglobin A1C 10.1 in october 2019. anticipate hyperglycemia after receiving solumedrol in ED diabetic diet. blood sugar ac/hs with coverage (3) Dysphagia: Status: Chronic Assessment and plan: continue pureed diet with thickened fluids. consider swallow evaluation if not tolerating or signs of aspiration (4) Diastolic heart failure: Status: Acute Assessment and plan: echocardiogram May 2018 shows EF 55-60%, no WMA right ventricle normal size and systolic function. No valvular disease, pulmonary systolic pressures range of 40-[address] discussed [address] Dr Esquivel who is in agreement Subjective Subjective Patient reports: no new complaints, tolerating liquids well, tolerating a regular diet, voiding w/o difficulty and afebrile Interval history since last seen: satting in the low 90's on room air. no respiratory distress. no signs of aspiration overnight with po intake. she is hemodynamically stable. and likely at her baseline. Exam Narrative Exam Narrative: Constitutional: pink warm dry and well perfused. Alert and oriented. Appears stated age. Normal body habitus. tardive dyskinesia with lip smacking and head rolling Head: Normocephalic, no trauma. Eyes: nonicteric. ENT: no nasal discharge. no exudate. Chest: RRR Resp: scattered coarse breath sounds, no wheezing, likely baseline. no respiratory distress Musculoskeletal: 5/5 strength to all four extremities. Skin: rash noted to bilateral upper extremities , capillary refill less than 2 sec. Neurologic: Alert and oriented x 3. moves all extremities, no focal deficits Hematologic/Lymphatic: No ecchymosis, no lymphadenopathy. Objective Objective Clinical Data: Abnormal lab results 11/21/19 11/22/19 Range/Units 12:35 06:30 Sodium 129 L (136-145) mmol/L Chloride 96 L (98-107) mmol/L Glucose 423 H 336 H (74-106) mg/dL Total Bilirubin 1.3 H (0.2-1.0) mg/dL AST 10 L (15-37) U/L Alkaline Phosphatase 145 H (46-116) U/L Albumin 2.9 L (3.4-5.0) g/dL Vital Signs Temperature 36.1 C L 11/22/19 12:05 Temperature Source Temporal Artery Scan 11/22/19 12:05 Pulse 88 11/22/19 12:05 Pulse Rhythm Regular 11/22/19 08:46 Pulse 88 11/21/19 16:30 Respiratory Rate 18 11/22/19 12:05 Respiratory Effort Non-Labored 11/22/19 08:46 Respiratory Depth Normal 11/22/19 08:46 Respiratory Pattern Normal 11/22/19 08:46 Blood Pressure 133/75 11/22/19 12:05 Blood Pressure Mean 65 11/21/19 16:17 Blood Pressure Position Sitting 11/21/19 12:21 Pulse Oximetry 90 L 11/22/19 12:05 Oxygen Delivery Method Room Air 11/22/19 12:05 Oxygen Flow Rate 0 11/22/19 12:05 Pain Level 0 11/22/19 12:05 Comment 11/22/19 12:05 Intake & Output 11/21/19 11/22/19 11/22/19 23:59 11:59 23:59 Intake Total 1560 / 1560 2250 / 2490 240 / 2490 Output Total 700 / 700 1300 / 1300 Balance 860 / 860 950 / 1190 240 / 1190 Weight 104.326 kg Intake: IV 1260 / 1260 1890 / 1890 Oral 300 / 300 360 / 600 240 / 600 Output: Urine 700 / 700 1300 / 1300 Other: Urine Color Straw Yellow Urine Appearance Clear Clear Urine Odor Normal Comment Void x1 in the bedside commode. Briefs were changed. Voiding Methods Bedside Commode Bedside Commode Laboratory Results WBC 8.05 10^3/uL (4.4-10.8) D 11/22/19 06:30 RBC 4.51 10^6/uL (3.93-5.22) 11/22/19 06:30 Hgb 13.7 g/dL (11.2-15.7) 11/22/19 06:30 Hct 40.5 % (36.0-46.0) 11/22/19 06:30 MCV 89.8 fL (80-95) 11/22/19 06:30 MCH 30.4 pg (27.0-33.0) 11/22/19 06:30 MCHC 33.8 % (32.0-36.0) 11/22/19 06:30 RDW 12.1 % (11.7-14.6) 11/22/19 06:30 Plt Count 216 10^3/uL (130-400) 11/22/19 06:30 MPV 10.7 fL (8.0-11.0) 11/22/19 06:30 Immature Gran % 0.6 11/22/19 06:30 Neutrophils % 70.5 11/22/19 06:30 Lymphocytes % 25.3 11/22/19 06:30 Monocytes % 3.5 11/22/19 06:30 Eosinophils % 0.0 11/22/19 06:30 Basophils % 0.1 11/22/19 06:30 Nucleated RBC % 0 % 11/22/19 06:30 Absolute Neutrophils 5.68 10^3/uL (1.2-6.7) 11/22/19 06:30 Absolute Lymphocytes 2.04 10^3/uL (1.2-3.4) 11/22/19 06:30 Absolute Monocytes 0.28 10^3/uL (0.1-0.8) 11/22/19 06:30 Absolute Eosinophils 0.00 10^3/uL (0.0-0.7) 11/22/19 06:30 Absolute Basophils 0.01 10^3/uL (0.0-0.2) 11/22/19 06:30 Sodium 138 mmol/L (136-145) 11/22/19 06:30 Potassium 4.3 mmol/L (3.5-5.1) 11/22/19 06:30 Chloride 103 mmol/L (98-107) 11/22/19 06:30 Carbon Dioxide 25.2 mmol/L (21.0-32.0) 11/22/19 06:30 Anion Gap 9.8 mmol/L (3-11) 11/22/19 06:30 BUN 12 mg/dL (7-18) 11/22/19 06:30 Creatinine 0.86 mg/dL (0.55-1.02) 11/22/19 06:30 Estimated GFR/1.73 m2 >= 60.00 (mL/min/1.73m2) 11/22/19 06:30 Glucose 336 mg/dL (74-106) H 11/22/19 06:30 Calcium 8.9 mg/dL (8.5-10.1) 11/22/19 06:30 Magnesium 1.9 mg/dL (1.8-2.4) 11/21/19 12:35 Total Bilirubin 1.3 mg/dL (0.2-1.0) H 11/21/19 12:35 AST 10 U/L (15-37) L 11/21/19 12:35 ALT 17 U/L (14-59) 11/21/19 12:35 Alkaline Phosphatase 145 U/L (46-116) H 11/21/19 12:35 Troponin I < 0.05 ng/mL (<0.06) 11/21/19 16:20 NT-Pro-B Natriuret Pep 117 pg/mL (<300) 11/21/19 12:34 Total Protein 7.3 g/dL (6.4-8.2) 11/21/19 12:35 Albumin 2.9 g/dL (3.4-5.0) L 11/21/19 12:35 Procalcitonin 0.2 ng/mL 11/21/19 12:34 COVID-19 PCR Negative (Negative) 11/21/19 15:15 Nasopharyn COVID-19 PCR Not Applicable 11/21/19 15:15 Ref Test Perform Site [place] [facility] lab 11/21/19 15:15
--- NOTE | 2019-11-22 14:24 | PHA.REVIEW ---
Pharmacy Admission Review - Admission Clinical Review (Last Updated 01/03/19 @ 16:05 by Nahomi Khan) Poorly controlled type 2 diabetes mellitus (Acute) Respiratory failure, unspecified with hypoxia (Acute) Pneumonia (Acute) Diastolic heart failure (Acute) codeine Allergy (Severe, Unverified 11/21/19 15:22) Penicillins Allergy (Severe, Unverified 11/21/19 15:22) bupropion Allergy (Intermediate, Unverified 11/21/19 15:22) tetrabenazine Allergy (Intermediate, Unverified 11/21/19 15:22) Skin Rash lisinopril Allergy (Mild, Unverified 11/21/19 15:22) oxybutynin chloride [From Ditropan] Allergy (Unverified 11/21/19 15:22) Height 5 ft 4 in Weight 104.326 kg - Renal Dosing Renal Dosing: BUN 12 mg/dL (7-18) 11/22/19 06:30 Creatinine 0.86 mg/dL (0.55-1.02) 11/22/19 06:30 Medications needing adjustments: Reviewed - Anticoagulation Anticoagulation: Hgb 13.7 g/dL (11.2-15.7) 11/22/19 06:30 Hct 40.5 % (36.0-46.0) 11/22/19 06:30 Plt Count 216 10^3/uL (130-400) 11/22/19 06:30 Creatinine 0.86 mg/dL (0.55-1.02) 11/22/19 06:30 DVT Prohphylaxis: Reviewed Medications: Enoxaparin Therapeutic Anticoagulation: Reviewed Medications: Aspirin - Opiate Usage Evaluate Pain Scale/Pains Meds: N/A - Relevant Labs Sodium 138 mmol/L (136-145) 11/22/19 06:30 Potassium 4.3 mmol/L (3.5-5.1) 11/22/19 06:30 Chloride 103 mmol/L (98-107) 11/22/19 06:30 Magnesium 1.9 mg/dL (1.8-2.4) 11/21/19 12:35 Electrolytes, C-Reactive P, ESR: Reviewed - DM Control DM Control: Glucose 336 mg/dL (74-106) H 11/22/19 06:30 Finger Stick Blood Glucose 305 Finger Stick Blood Glucose 305 Finger Stick Blood Glucose 336 Finger Stick Blood Glucose 336 Insulin Dosing: Reviewed (glargine + aspart per ss) - Heart Failure/GA Heart Failure/GA: Troponin I < 0.05 ng/mL (<0.06) 11/21/19 16:20 NT-Pro-B Natriuret Pep 117 pg/mL (<300) 11/21/19 12:34 EF%, WILLIE's, B-Blockers, Diuretics: Reviewed - BP Control BP Control: Blood Pressure 109/63 Blood Pressure 133/75 Blood Pressure 119/74 If elevated: Reviewed - IV to PO Switch IV Medications: Reviewed - Home Meds Home Med List reviewed: Reviewed Relevent Home Meds Not ordered & why?: All ordered - Current meds Current Medication Order Review: Reviewed
[2019-11-22] MEDS: Enoxaparin 40 MG/0.4 ML SYR SC (17:10)
[2019-11-22] MEDS: Dexlansoprazole 30 MG CAP PO (20:06)
[2019-11-22] MEDS: Magnesium Oxide 400 MG TAB PO (20:06)
[2019-11-22] MEDS: clonazePAM 0.5 MG TAB 1.25 MG PO (21:34)
[2019-11-22] MEDS: Cyclobenzaprine 10 MG TAB 5 MG PO (21:34)
[2019-11-22] MEDS: Simvastatin 20 MG TAB PO (21:34)
[2019-11-23 00:28] VITALS: BP 128/58; PULSE 76; RESP 18; TEMP 36.6; O2SAT 95
[2019-11-23 07:18] LABS: Anion Gap 7.8 mmol/L (3-11); BUN 12 mg/dL (7-18); CO2 26.2 mmol/L (21.0-32.0); CREATININE 0.72 mg/dL (0.55-1.02); Calcium 8.4 mg/dL (8.5-10.1); Chloride 109 mmol/L (98-107); Glucose 90 mg/dL (74-106); Potassium 3.6 mmol/L (3.5-5.1); Sodium 143 mmol/L (136-145)
[2019-11-23 07:20] LABS: Abs Immature Grans 0.04 10^3/uL (0.0-0.06); Absolute Basophil Count 0.02 10^3/uL (0.0-0.2); Absolute Eosinophil Count 0.08 10^3/uL (0.0-0.7); Absolute Lymphocyte Count 4.14 10^3/uL (1.2-3.4); Absolute Monocyte Count 0.69 10^3/uL (0.1-0.8); Absolute Neutrophil Count 6.06 10^3/uL (1.2-6.7); Basophils % 0.2; Eosinophils % 0.7; HCT 38.4 % (36.0-46.0); Immature Grans % 0.4; Lymphocytes % 37.5; MCH 30.4 pg (27.0-33.0); MCHC 33.9 % (32.0-36.0); MCV 89.9 fL (80-95); MPV 10.6 fL (8.0-11.0); Monocytes % 6.3; Neutrophils % 54.9; Nucleated RBC 0 %; Platelet Count 243 10^3/uL (130-400); RBC 4.27 10^6/uL (3.93-5.22); RDW 12.4 % (11.7-14.6); WBC 11.03 10^3/uL (4.4-10.8)
[2019-11-23] MEDS: Dexlansoprazole 30 MG CAP PO (07:36)
[2019-11-23] MEDS: Albuterol/Ipratropium 3 ML UPD VIAL UPD ×2 (07:36→11:42)
[2019-11-23] MEDS: Levothyroxine 112 MCG TAB PO (07:37)
[2019-11-23 07:41] VITALS: BP 120/66; PULSE 76; RESP 24; TEMP 35.9; O2SAT 96
[2019-11-23] MEDS: Escitalopram 20 MG TAB PO (08:22)
[2019-11-23] MEDS: Propranolol 20 MG TAB PO (08:22)
[2019-11-23] MEDS: Aspirin 81 MG CHEW PO (08:22)
[2019-11-23] MEDS: Magnesium Oxide 400 MG TAB PO (08:22)
[2019-11-23] MEDS: Nystatin POWDER 15 GM JAR TP (08:24)
[2019-11-23] MEDS: Insulin Glargine 300 UNITS/3 ML PEN 30 UNITS SC (08:28)
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
[2019-11-23 11:42] VITALS: PULSE 78; RESP 2; RESP 20; RESP 8; O2SAT 95
[2019-11-23 11:43] VITALS: PULSE 86; RESP 2; RESP 22; RESP 8; O2SAT 99
[2019-11-23] MEDS: Insulin Aspart 300 UNITS/3 ML PEN SC (12:11)
--- NOTE | 2019-11-23 15:25 | PDOC.CMDIS ---
- If Service Date Differs Date of service: 11/23/19 Time of Service: 15:25 LACE Index Scoring Tool - Questions: Length of Stay (in days): 3 Acuity (Admit via E.D.?): Yes Comorbidities: Diabetes w/o Complication, Congestive Heart Failure E.D. Visits: 2 - Answers: Total Score: 11 Risk of Readmission: High Risk Care Management Discharge Reason for Hospitalization: Hypoxic, Respiratory Failure Discharge Plan: Philomena will return home in the care of her sister, Chantal. Chantal will drive her home via private vehicle. She will follow up with her PCP and discharge plan of care. She is happy to be going home. Patient/Family Education Needs: Review discharge instructions regarding activity levels and medications with caregiver, discussion of self care needs and goals of care.
== END 2019-11-23 13:38 | disposition home or self-care (01) | DRG 189 ==
LOC: ER 14:56 → MS 17:00
PROVIDERS: Nurse Practitioner Acute Care; Admitting Provider Family Medicine; Emergency Provider Registered Nurse Emergency; PCP Family Medicine; Visit Provider Family Medicine
DX: J96.01 Acute respiratory failure with hypoxia (principal); I48.92 Unspecified atrial flutter; F20.9 Schizophrenia, unspecified; G24.01 Drug induced subacute dyskinesia; Z79.4 Long term (current) use of insulin; K22.70 Barrett's esophagus without dysplasia; F31.9 Bipolar disorder, unspecified; G89.29 Other chronic pain; M54.5 Low back pain; F41.8 Other specified anxiety disorders; K21.9 Gastro-esophageal reflux disease without esophagitis; E78.5 Hyperlipidemia, unspecified; E03.9 Hypothyroidism, unspecified; G43.909 Migraine, unspecified, not intractable, without status migrainosus; G47.33 Obstructive sleep apnea (adult) (pediatric); M19.90 Unspecified osteoarthritis, unspecified site; M81.0 Age-related osteoporosis without current pathological fracture; H90.3 Sensorineural hearing loss, bilateral; G25.71 Drug induced akathisia; N39.41 Urge incontinence; E11.65 Type 2 diabetes mellitus with hyperglycemia; I11.0 Hypertensive heart disease with heart failure; R13.10 Dysphagia, unspecified
CPT/HCPCS: 36415; 36416; 80048; 80053; 82962; 84145; 87040; 93005; 94640; 96361; 96365; 96375; 99223; 99233; 99239; 99285; J1650; U0003; 71045; 83735; 83880; 84484; 85025; 93010; 99284; J0456; J2930; J3490; J7620

== ENCOUNTER 2020-02-29 20:28 | Outpatient (REF) | payer MEDICARE, MEDICAID, SELFPAY ==
[2020-02-29 14:33] LABS: BUN 8 mg/dL (7-18); CREATININE 0.84 mg/dL (0.55-1.02); Calcium 8.8 mg/dL (8.5-10.1); Calculated LDL 64 mg/dL (<100); Chloride 105 mmol/L (98-107); Cholesterol 135 mg/dL (<200); Glucose 257 mg/dL (74-106); HDL Cholesterol 35 mg/dL (40-60); Potassium 4.5 mmol/L (3.5-5.1); Sodium 140 mmol/L (136-145); TSH (W/Ref FT4) 0.69 uIU/mL (0.36-3.74); Triglyceride 183 mg/dL (<150)
[2020-02-29 14:44] LABS: Hemoglobin A1C 9.2 % (<5.7)
== END 2020-02-29 20:48 ==
LOC: NCHCN 20:28
PROVIDERS: PCP Family Medicine; Visit Provider Family Medicine
DX: E11.9 Type 2 diabetes mellitus without complications (principal); E78.5 Hyperlipidemia, unspecified; E03.9 Hypothyroidism, unspecified
CPT/HCPCS: 80048; 80061; 83036; 84443

== ENCOUNTER 2020-07-24 15:45 | Outpatient (REF) | payer MEDICARE, MEDICAID, SELFPAY ==
[2020-07-24 20:02] LABS: ALT 20 U/L (14-59); AST 19 U/L (15-37); Albumin 3.2 g/dL (3.4-5.0); Alkaline Phosphatase 163 U/L (46-116); BUN 9 mg/dL (7-18); Bilirubin, Total 0.4 mg/dL (0.2-1.0); Calcium 8.8 mg/dL (8.5-10.1); Chloride 106 mmol/L (98-107); FREE T4 1.15 ng/dL (0.76-1.46); Glucose 211 mg/dL (74-106); Sodium 142 mmol/L (136-145); TSH 1.13 uIU/mL (0.36-3.74); Total Protein 7.1 g/dL (6.4-8.2)
[2020-07-24 20:39] LABS: COMMENT (LAB VIEW ONLY) 114.95 mg/dL; Microalb ug/mg Crea 8.4 ug/mg Cr
[2020-07-26 15:35] LABS: Fructosamine 327 mcmol/L (200 - 285)
== END 2020-07-24 15:46 | disposition home or self-care (01) ==
LOC: NCHCN 15:45
PROVIDERS: PCP Family Medicine; Visit Provider Family Medicine
DX: E11.65 Type 2 diabetes mellitus with hyperglycemia (principal); Z79.4 Long term (current) use of insulin; E03.9 Hypothyroidism, unspecified
CPT/HCPCS: 80053; 82043; 82570; 82985; 84439; 84443

== ENCOUNTER 2020-08-03 09:38 | Emergency (ER) | payer MEDICARE, MEDICAID, SELFPAY ==
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
[2020-08-03 09:44] VITALS: BP 133/66; PULSE 107; RESP 20; TEMP 36.3; O2SAT 95
--- NOTE | 2020-08-03 09:45 | RT.EKG_ITS ---
APPROVED REPORT Exam: Resting ECG Reason for Exam: chest tightness Patient Location: E HR:91 bpm ECG Measurements Heart Rate 91 AXIS WV 169 P 34 QRSd 99 QRS 4 QT 366 T 6 QTc 449 Conclusion Sinus rhythm...normal P axis, V-rate 60- 99 Ventricular premature complex...V complex w/ short R-R interval Inferior infarct, old...Q >35mS, II III aVF I have reviewed and interpreted ECG and agree with software generated interpretation.
[2020-08-03 09:49] VITALS: RESP 20
--- NOTE | 2020-08-03 10:00 | DI.RAD_ITS ---
Exam(s) XR PORTABLE CHEST AP EXAM: XR PORTABLE CHEST AP CLINICAL HISTORY: cough TECHNIQUE: COMPARISON: CR XR PORTABLE CHEST AP from 11/21/2019 FINDINGS: Portable upright chest at 1023 hours. The heart may be mildly enlarged. There are pulmonary fibroti c changes. No gross acute consolidation or pleural effusion. IMPRESSION: No evidence of acute process. RADIATION DOSE DELIVERED: Total DLP
[2020-08-03 10:21] LABS: Abs Immature Grans 0.02 10^3/uL (0.0-0.06); Absolute Basophil Count 0.06 10^3/uL (0.0-0.2); Absolute Eosinophil Count 0.49 10^3/uL (0.0-0.7); Absolute Lymphocyte Count 3.54 10^3/uL (1.2-3.4); Absolute Monocyte Count 0.69 10^3/uL (0.1-0.8); Basophils % 0.7; Eosinophils % 5.3; HCT 42.8 % (36.0-46.0); HGB 14.3 g/dL (11.2-15.7); Immature Grans % 0.2; Lymphocytes % 38.5; MCH 30.2 pg (27.0-33.0); MCHC 33.4 % (32.0-36.0); MCV 90.5 fL (80-95); MPV 10.2 fL (8.0-11.0); Monocytes % 7.5; Neutrophils % 47.8; Nucleated RBC 0 %; Platelet Count 239 10^3/uL (130-400); RBC 4.73 10^6/uL (3.93-5.22); RDW 11.8 % (11.7-14.6); RDW-SD 38.8 fL
[2020-08-03] MEDS: Mylanta Suspension 30 ML CUP PO (10:31)
[2020-08-03 10:38] LABS: ALT 16 U/L (14-59); AST 13 U/L (15-37); Albumin 2.9 g/dL (3.4-5.0); Alkaline Phosphatase 143 U/L (46-116); Anion Gap 8.2 mmol/L (3-11); BUN 7 mg/dL (7-18); Bilirubin, Total 0.4 mg/dL (0.2-1.0); CO2 27.8 mmol/L (21.0-32.0); CREATININE 0.9 mg/dL (0.55-1.02); Calcium 8.4 mg/dL (8.5-10.1); Chloride 105 mmol/L (98-107); Glucose 227 mg/dL (74-106); Lipase 57 U/L (73-393); Magnesium 1.6 mg/dL (1.8-2.4); Potassium 4.2 mmol/L (3.5-5.1); Sodium 141 mmol/L (136-145); Total Protein 7.3 g/dL (6.4-8.2)
[2020-08-03 10:39] LABS: Troponin I < 0.05 ng/mL (<0.06)
--- NOTE | 2020-08-03 10:59 | DI.VRAD_ITS ---
PROCEDURE INFORMATION: Exam: XR Chest Exam date and time: 08/03/2020 10:08 AM Age: 74 years old Clinical indication: Cough TECHNIQUE: Imaging protocol: XR of the chest. Views: 1 view. COMPARISON: CR XR PORTABLE CHEST AP 11/21/2019 1:39 PM FINDINGS: Lungs: Mild fibrotic changes are present in the lungs. There is a poor inspiration with elevation of the diaphragm. No pneumonia is seen. Pleural spaces: Unremarkable. No pleural effusion. No pneumothorax. Heart/Mediastinum: Unremarkable. No cardiomegaly. Bones/joints: Multiple old healed rib fractures are present. IMPRESSION: No acute cardiopulmonary abnormality. Dictated and Authenticated by: Mello Marsh MD. Ordering:MARILU Chavez MD
[2020-08-03 11:46] VITALS: BP 137/80; PULSE 86; RESP 18; TEMP 36.6; O2SAT 95
== END 2020-08-03 11:53 | disposition home or self-care (01) ==
PROVIDERS: Emergency Provider Physician Assistant; PCP Family Medicine
DX: J18.9 Pneumonia, unspecified organism (principal); K21.9 Gastro-esophageal reflux disease without esophagitis
CPT/HCPCS: 36415; 80053; 83690; 93005; 99284; 71045; 81003; 83735; 84484; 85025; 93010; 99283

== ENCOUNTER 2021-04-21 17:08 | Outpatient (REF) | payer MEDICARE, MEDICAID, SELFPAY ==
[2021-04-21 18:30] LABS: Bilirubin Negative (Negative); Blood Small (Negative); Clarity Sl Cloudy (Clear); Glucose 100 mg/dL (Negative); Ketones Negative (Negative); Leukocyte Esterase Small (Negative); Nitrite Negative (Negative); Specific Gravity 1.015 (1.005-1.025); Urobilinogen 0.2 EU/dL (Up TO 0.2); pH 6.5 (5-8)
[2021-04-21 18:50] LABS: Bacteria Few HPF (Negative); C & S Indicated? No/Sq. Contamination; Crystals Negative HPF (Negative); Epithelial Cells Many HPF (Negative); Mucus Negative (Negative); RBC 0-2 HPF (0-2)
== END 2021-04-21 17:09 | disposition home or self-care (01) ==
LOC: NCHCN 17:08
PROVIDERS: PCP Family Medicine; Visit Provider Family Medicine
DX: N39.8 Other specified disorders of urinary system (principal)
CPT/HCPCS: 81003; 81015

== ENCOUNTER 2021-05-22 06:51 | Inpatient (IN) | payer MEDICARE, MEDICAID, SELFPAY ==
[2021-05-22] VITALS (62 sets, daily range): BP systolic 110–243; BP diastolic 52–217; PULSE 79–207; RESP 2–36; TEMP 35.9–37.3; O2SAT 87–98
--- NOTE | 2021-05-22 | DI.US_ITS ---
APPROVED REPORT EXAM: Comprehensive 2D, Doppler, and color-flow Echocardiogram Patient Location: In-Patient Room/Bed: ER2 Skin Grader: Mary Garrett RDCS (AE) Indications: CHF Other Information Study Quality: Fair. Technically limited study due to body habitus, inability to position patient. Conclusion Normal left ventricular wall thickness. Left ventricular cavity is small. Estimated ejection fracti on is 55 to 60%. Wall motion is normal The right ventricle is not well visualized Both atria are normal in size There is no structural or hemodynamically significant valvular disease Borderline dilated ascending aorta measuring 3.36 cm Wall motion Left Ventricle Left ventricular cavity is small. The left ventricular systolic function is normal. The left ventricu lar ejection fraction is within the normal range. There is normal left ventricular wall thickness. Th ere is normal LV segmental wall motion. There is no ventricular septal defect visualized. LVEF is 56% . Right Ventricle Right ventricle is not well visualized. Right ventricular systolic function could not be assessed. Atria The left atrium size is normal. Right atrium is not well visualized. The interatrial septum is intact with no evidence for an atrial septal defect. Aortic Valve The aortic valve is normal in structure. Aortic valve is trileaflet. There is no aortic valvular sten osis. No aortic regurgitation is present. Mitral Valve The mitral valve is normal in structure. No evidence of mitral valve stenosis. Trace mitral regurgita tion. Tricuspid Valve The tricuspid valve is normal in structure. There is no tricuspid valve stenosis. Trace to mild tricu spid regurgitation. Pulmonic Valve The pulmonary valve is normal in structure. There is no pulmonic valvular stenosis. There is no pulmo aaron valvular regurgitation. Great Vessels The aortic root is normal in size. The ascending aorta is borderline dilated. Aortic arch is not well visualized. Due to poor image quality, the IVC could not be assessed. Pericardium There is no pericardial effusion. 2D Dimensions IVSD d PLAX 1.00 cm F: 0.6-1.0 LV Vol A2C d MOD 109.7 mL LVPW d PLAX 1.00 cm F: 0.6 - 1.0 LV Vol A4C d MOD 95.4 mL LVID d PLAX 4.16 cm F: 3.8 - 5.2 LV EF A4C MOD 56.6 % LVDs 2.90 cm F: 2.2 - 3.5 LV EF A2C MOD 55.1 % Ao Root d 2.93 cm F: 2.7 - 3.3 LV EF Biplane MOD 51.2 % Ao Asc Diam d 3.36 cm F: 2.3 - 3.1 SV 52.86 mL LV EF Teichholz 57.2 % SV Index 26.86 mL/m2 LVEF (Foley's) 51.24 % F: 54 - 74 LV Volume 77.78 mL F: 46 - 106 LV Volume Index 39.48 mL/m2 F: 29 - 61 LV Vol Biplane MOD 103.2 mL FS 29.70 % M-Mode TAPSE 1.15 cm (M/F) >1.7 LV Diastology MV E' medial 0.075 (>0.07 m/s) E/A Ratio 0.8 LV E/e MED 8.65 (<14) MV E Vmax 0.65 (0.4-1.3 m/s) MV E' lateral 0.082 (>0.1 m/s) MV A Vmax 0.80 (0.4-1.3 m/s) LV E/e LAT 7.90 (<14) MV E/A Ratio 0.79 MV E/E' medial 8.69 MV E/E' lateral 7.91 Aortic Valve LVOT Area 3.20 cm2 AoV Area Vmax 2.91 cm2 LVOT Vmax 1.11 m/s AoV Area/ BSA (Vmax) 1.48 cm2/m2 LVOT Mean Ferny. 0.70 m/s BEBETO Mean Ferny. 2.69 cm2 LVOT Peak Grad 5.0 mmHg BEBETO Mean Ferny. Index 1.37 cm2/m2 LVOT Mean Grad 2.3 mmHg LVOT VTI 0.194 m LVOT Diam s 2.00 cm AoV Vmax 1.22 m/s Velocity Ratio 0.90 AoV Mean Ferny. 0.83 m/s AoV Peak Grad 6.0 mmHg LVOT SV 62.09 mL AoV Mean Grad 3.1 mmHg AoV VTI 0.220 m AoV Area VTI 2.82 cm2 AoV Area/ BSA (VTI) 1.43 cm/m2 Mitral Valve MV DT 333 (160-240 msec) MV PHT 97 msec MV Area PHT 2.28 cm2 MV VTI 0.210 m MV Area VTI 2.96 (4.0-6.0 cm2) Pulmonary Valve PV Vmax 0.93 (0.5-1.5 m/s) RVOT Peak Gr. 1.16 mmHg PV Peak Grad 3.4 mmHg RVOT Mean Gr. 0.55 mmHg PV Mean Grad 1.5 mmHg RVOT VTI 0.089 m PV VTI 0.138 m RVOT Vmax 0.54 m/s Tricuspid Valve TR Peak Grad 23.3 mmHg TR Vmax 2.42 m/s
--- NOTE | 2021-05-22 07:00 | RT.EKG_ITS ---
APPROVED REPORT Exam: Resting ECG Reason for Exam: difficulty breathing Patient Location: E HR:88 bpm ECG Measurements Heart Rate 88 AXIS MT 201 P 78 QRSd 96 QRS 12 QT 376 T -5 QTc 456 Conclusion Sinus rhythm...normal P axis, V-rate 60- 99 Probable left atrial enlargement...P >50mS, <-0.10mV V1 Probable inferior infarct, recent...Q>35mS, ST>0.1mV, T neg, II-aVF Nonspecific T abnormalities, inferior leads...T <-0.10mV, II III aVF limited by motion artifact but no obvious stemi
--- NOTE | 2021-05-22 07:15 | DI.CT_ITS ---
Exam(s) CT CHEST PE ABD PELVIS W EXAM: CT CHEST PE ABD PELVIS W CLINICAL HISTORY: dyspnea, abdominal pain, vomit TECHNIQUE: CT examination of the chest, abdomen, and pelvis was performed with intravenous infusion of 100 cc of Omnipaque 350. COMPARISON: CT CT CHEST PE CTA from 08/01/2018 CR,XR XR PORTABLE CHEST AP from 08/03/2020 FINDINGS: The lungs show apparent fibrotic changes. No gross consolidation, although motion artifact limits ev aluation of the lungs period. There is no pleural effusion seen. There is no mediastinal or hilar adenopathy. Pulmonary arteries are not ideally visualized due to motion artifact, no central pulmonary embolus id entified.. Thoracic aorta and major branches appear intact with no evidence of aneurysm or dissection. No bony abnormality seen in the thorax apart from an old vertebral compression fracture at T10. The liver is mildly enlarged and there is probable hepatic steatosis.. Gallbladder has been surgical ly removed, bile ducts are CT normal. No abnormality seen involving the spleen. Pancreas appears intact. The adrenals are unremarkable in appearance. The kidneys appear intact with no evidence of hydroneph rosis or nephrolithiasis. There is a Ortiz catheter in the urinary bladder which is nearly empty. Abdominal aorta and major visceral branches appear intact. No significant abdominal wall hernia seen. No significant abdominal or pelvic adenopathy. No focal bowel pathology. No evidence of appendicitis or diverticulitis. IMPRESSION: No evidence of acute process.. RADIATION DOSE DELIVERED: 1,743.33mGy.cm Total DLP 1,743.33mGy.cm Total DLP !Error CTDIvol
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
[2021-05-22 07:20] LABS: BE (Venous) 6 mmol/L (-2-3); HCO3 (Venous) 32 mmol/L (23-28); O2 Sat (Venous) 63 %; TCO2 (Venous) 29 mmol/L (24-29); pH (Venous) 7.32 (7.31-7.41); pO2 (Venous) 35 mmHg
[2021-05-22 07:21] LABS: pCO2 (Venous) 62 mmHg (41-51)
[2021-05-22 07:22] LABS: Abs Immature Grans 0.02 10^3/uL (0.0-0.06); Absolute Basophil Count 0.05 10^3/uL (0.0-0.2); Absolute Eosinophil Count 0.29 10^3/uL (0.0-0.7); Absolute Monocyte Count 0.56 10^3/uL (0.1-0.8); Basophils % 0.6; Eosinophils % 3.8; HCT 45.2 % (36.0-46.0); HGB 14.4 g/dL (11.2-15.7); Immature Grans % 0.3; Lymphocytes % 42.7; MCH 29.3 pg (27.0-33.0); MCHC 31.9 % (32.0-36.0); MCV 92.1 fL (80-95); MPV 10.2 fL (8.0-11.0); Monocytes % 7.3; Neutrophils % 45.3; Nucleated RBC 0 %; Platelet Count 232 10^3/uL (130-400); RBC 4.91 10^6/uL (3.93-5.22); RDW 12.3 % (11.7-14.6); RDW-SD 41.5 fL; WBC 7.72 10^3/uL (4.4-10.8)
[2021-05-22] MEDS: methylPREDNISolone SUCC 125 MG VIAL IVP (07:28)
[2021-05-22 07:37] LABS: Lactate 1.1 mmol/L (0.6-1.4)
[2021-05-22 07:41] LABS: INR 1.1 (0.9-1.1); PTT Activated 24.2 sec (21.0-27.5); Prothrombin Time 10.6 sec (9.3-11.0)
[2021-05-22 07:48] LABS: ALT 13 U/L (14-59); AST 27 U/L (15-37); Albumin 3.2 g/dL (3.4-5.0); Alkaline Phosphatase 125 U/L (46-116); Anion Gap 4.1 mmol/L (3-11); BUN 11 mg/dL (7-18); Bilirubin, Total 0.4 mg/dL (0.2-1.0); CO2 30.9 mmol/L (21.0-32.0); CREATININE 0.9 mg/dL (0.55-1.02); Calcium 8.6 mg/dL (8.5-10.1); Chloride 106 mmol/L (98-107); Glucose 175 mg/dL (74-106); Magnesium 2.1 mg/dL (1.8-2.4); NT-proBNP 57 pg/mL (<300); Potassium 4.7 mmol/L (3.5-5.1); Sodium 141 mmol/L (136-145); Total Protein 7.6 g/dL (6.4-8.2); Troponin I < 50 ng/L (<or=60)
[2021-05-22 07:49] LABS: COVID-19 PCR Negative (Negative); Influenza A PCR Negative (Negative); Influenza B PCR Negative (Negative); RSV PCR Negative (Negative)
[2021-05-22] MEDS: Albuterol/Ipratropium 3 ML UPD VIAL UPD ×3 (07:51→21:40)
[2021-05-22 08:03] LABS: D-Dimer 340 ng/mlFEU (<500)
[2021-05-22] MEDS: Albuterol 2.5 MG/3 ML INH SOLN VIAL 5 MG UPD (08:10)
[2021-05-22] MEDS: Furosemide 40 MG/4 ML VIAL IVP ×2 (08:16→17:50)
[2021-05-22 08:25] LABS: Bilirubin Negative (Negative); Blood Negative (Negative); Clarity Clear (Clear); Glucose Negative (Negative); Ketones Negative (Negative); Leukocyte Esterase Negative (Negative); Nitrite Negative (Negative); Urobilinogen 0.2 EU/dL (Up TO 0.2); pH 6.5 (5-8)
[2021-05-22 08:32] LABS: Lipase 102 U/L (73-393); TSH (W/Ref FT4) 5.48 uIU/mL (0.36-3.74)
[2021-05-22] MEDS: Omnipaque 350 MG/ML 100 ML BTL IJ (08:48)
[2021-05-22 08:56] LABS: FREE T4 0.98 ng/dL (0.76-1.46)
[2021-05-22] MEDS: Famotidine 20 MG/2 ML VIAL IVP (09:50)
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
[2021-05-22] MEDS: cefTRIAXone 1 GM/50 ML BAG IVPB (10:03)
[2021-05-22 10:27] LABS: Troponin I < 50 ng/L (<or=60)
[2021-05-22] MEDS: DOXYCYCLINE 100 MG in Normal Saline 100 ML IVPB ×2 (10:43→22:21)
[2021-05-22 11:07] LABS: Procalcitonin < 0.1 ng/mL
[2021-05-22] MEDS: Pantoprazole 40 MG VIAL IVP (13:24)
[2021-05-22] MEDS: Enoxaparin 40 MG/0.4 ML SYR SC (13:25)
[2021-05-22] MEDS: Normal Saline 1,000 ML 125 ML IV (13:28)
[2021-05-22] MEDS: Insulin Aspart 300 UNITS/3 ML PEN SC ×3 (13:55→22:21)
--- NOTE | 2021-05-22 15:30 | IN_ITS ---
Date of service: 05/22/21 Time of Service: 15:30 PT Notes Visit Reasons: Acute Brochitis,Hypoxia Inpatient Physical Therapy Evaluation Date: 05/22/2021 Referring Doctor:? Maryse Jewell MD PT Orders: PT CONSULT: Limited ability Precautions: Fall.? Activity as tolerated. Patient Profile/Admitting Diagnosis:? Patient is a 72-year-old female with development delay and tardive dyskinesia who presented to the ED on 05/22/2021 with complaints of increasing shortness of breath that worsens with activity.? Patient is diagnosed with acute respiratory distress, nausea and vomiting, and obstructive sleep apnea. PMHX: All Active Problems?(Updated 05/22/21 @ 09:49 by Hawa Bull DO) Acute respiratory distress (Acute) Hypoxia (Acute) Acute bronchitis (Acute) Nausea and vomiting (Acute) Poorly controlled type 2 diabetes mellitus (Acute) Pneumonia (Acute) Gastrostomy in place (Acute) Granuloma annulare (Acute) Hearing loss (Acute) Lactose intolerance (Acute) Obesity (Chronic) Hiatal hernia (Chronic) Neurogenic bladder (Acute) Venous insufficiency (Acute) Tremor (Acute) Obstructive sleep apnea (Chronic) C-PAP removed due to noncomplianceDiastolic heart failure (Chronic) Diabetes mellitus type 2, controlled (Acute) Skin rash (Acute) Chest pain, rule out acute myocardial infarction (Acute) Ileus (Acute) Impaired decision making (Chronic) Cognitive developmental delay (Chronic) On tube feeding diet (Chronic) Aspiration pneumonia (Acute) Dysphagia (Chronic) Atrial flutter (Acute) IDDM (insulin dependent diabetes mellitus) (Chronic) Schizophrenia (Chronic) Tardive dyskinesia (Chronic) Ambulatory dysfunction (Acute) DVT prophylaxis (Acute) Discharge planning issues (Acute) S/P percutaneous endoscopic gastrostomy (PEG) tube placement (Acute) Dysphagia causing pulmonary aspiration with swallowing (Chronic) Advance directive discussed with patient (Chronic) Chest pain (Acute) Atrial flutter (Chronic) Bipolar disorder (Chronic) Schizophrenia (Chronic) DVT prophylaxis (Chronic) Ambulatory dysfunction (Chronic) Developmental delay, borderline (Chronic) Migraine headache without aura (Chronic) Osteoporosis (Chronic) Depression with anxiety (Chronic) Chronic low back pain (Chronic) Osteoarthritis (Chronic) Hypothyroidism (Chronic) Arias's esophagus (Chronic) GERD (gastroesophageal reflux disease) (Chronic) Obstructive sleep apnea on CPAP (Chronic) Type 2 diabetes mellitus (Chronic) Hyperlipidemia (Chronic) Hypertension (Chronic) Urgency incontinence (Chronic 05/01/15) Tardive dyskinesia (Chronic 01/26/17) 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 H/O bilateral cataract extraction H/O tubal ligation H/O umbilical hernia repair History of hysterectomy with bilateral oophorectomy S/P cholecystectomy Social History/Home Situation: Philomena lived with her sister Chantal who provides assistance with bathing. Sister states that she uses a folding chair, places chair inside the tub, and have Philomena step over and onto chair for bathing.?There is a ramp tp enter her sister's house. Chantal states that Philomena has been able to walk from her bedroom to the bathroom about 20-30 feet using her 4 wheeled walker.? Yaquelin states that she has had several falls in the past year. ? Equipment Owned/DME: Hospital bed, 4WW, CPAP machine Subjective: Philomena is agreeable to a PT consult and treatment today.? Tried so hard to sit at edge of bed but became very short of breath and fatigued and politely requested to rest. Objective: General Observation: Patient seen lying in bed with IV in right UE. Telemetry monitoring on.? Dyskinesias at rest and worse with movement Mental Status: Alert and oriented as to person and place.? Unable to determine date and time. Pain: Denies ROM: Right Upper Extremity: Shoulder Flexion WFL. Shoulder abduction WFL. Elbow flexion WFL. Wrist flexion WFL. Functional opening and closing of hand WFL. Left Upper Extremity: Shoulder Flexion WFL. Shoulder abduction WFL. Elbow flexion WFL. Wrist flexion WFL. Functional opening and closing of hand WFL. Right Lower Extremity: Hip flexion lacks about 50% of available range of motion. Hip abduction lacks about 50% of available range of motion. Knee flexion WFL. Ankle dorsiflexion WFL. Ankle plantarflexion WFL. Left Lower Extremity: Hip flexion lacks about 50% of available range of motion. Hip abduction lacks about 50% of available range of motion. Knee flexion WFL. Ankle dorsiflexion WFL. Ankle plantarflexion WFL. Strength: Right Upper Extremity: Shoulder flexors 4-/5. Shoulder abductors 4-/5. Elbow flexors 4-/5. Elbow extensors 4-/5. Pencils Washer strong. Left Upper Extremity: Shoulder flexors 4-/5. Shoulder abductors 4-/5. Elbow flexors 4-/5. Elbow extensors 4-/5. Pencils Washer strong. Right Lower Extremity: Hip flexors 3-/5. Hip abductors 3-/5. Knee flexors 3-5. Knee extensors 3-/5. Ankle dorsiflexors 3-/5. Ankle plantarflexors 3-/5. Left Lower Extremity: Hip flexors 3-/5. Hip abductors 3-/5. Knee flexors 3-5. Knee extensors 3-/5. Ankle dorsiflexors 3-/5. Ankle plantarflexors 3-/5. Sensation: Intact as to pain and pressure to bilateral lower extremities. Bed Mobility/Transfers: Severe dyspnea with attempt at supine to sit, will reassess tomorrow. Gait: Deferred for this session. Will reassess tomorrow. Balance: Static Sitting: Poor Dynamic Sitting: Poor Static Standing: Unable to assess Dynamic Standing: Unable to assess Special Tests: Mobility Limitations Standardized Measure [facility]-PAC 6 clicks Basic Mobility Inpatient Short Form: Raw Score: 8 ? CMS Score: 87% deficit Informed Consent/Education:? Patient were instructed in purpose of PT consult and plan of care. Assessment: Unable to assess mobility status due to severe dyspnea, increasing anxiety and considerable distress. Patient is a 72-year-old female with development delay and tardive dyskinesia who presented to the ED on 05/22/2021 with complaints of increasing shortness of breath that worsens with activity.? Patient is diagnosed with acute respiratory distress, nausea and vomiting, and obstructive sleep apnea. Patient presents with clinical signs and symptoms consistent with current/admitting diagnoses that have resulted to mobility limitations, gait instability, generalized weakness, and lack of motor control as demonstrated by the following impairment level findings: 1.? Decreased strength to B LE major muscle groups 2.? Impaired balance 3.? Impaired activity tolerance 4.? Limitation of joint range of motion in the hips (chroninc) 5.? Dyskinesia 6. Significant dyspnea Impairments are contributing to the following functional limitations: 1.? Decreased bed mobility skills 2.? Increased dependence with transfers 3.? Inability to safely ambulate without assistive device 4.? Increase completion time for mobility ADL performance 5.? Increased fall risk 6.? Inability to negotiate steps alone safely Patient is assessed 61242 high complexity based on the following: History: 72-year-old female with diagnosis of community-acquired pneumonia, ambulatory dysfunction, and generalized weakness with co-morbidities and past medical history as indicated above Examination: Underlying impairments and functional deficits have resulted to AMPAC score of 11 with an equivalent deficit of 87% Presentation: Evolving Decision Makin high complexity Goals: Goals X1 week 1. Supine-Sit independent 2. Sit-Supine independent 3. Sit-Stand contact-guard assist 4. Stand-Sit contact-guard assist 5. Bed-Chair contact-guard assist 6. Chair-Bed contact-guard assist 7. Contact-guard assist gait on level surface with use of least restrictive device for at least 300 feet without report of pain nor dyspnea Plan of Care/Treatment Plan: 1-2x/day, 7 days/week x 1 week. Plan of care has been reviewed with the [facility] providing the service under Physical Therapy direction. Initiate Physical Therapy intervention for strengthening, bed mobility, transfers, gait, stairs, balance training, use of assistive device. DISCHARGE RECOMMENDATIONS: [] Home with no services [] [] Home with services [specify] [] Home with outpatient PT [] [X] SNF for continued rehabilitation. Patient will benefit from senior living facility placement for continued skilled physical therapy services in order to progress mobility level, strength, and balance in preparation for a safe discharge to home. [] Charge Lpn Care [] [] SNF versus LTC based on ability to participate and progress [] TREATMENT CODE/TIME: 49461 x 23 minutes beginning at 15:30 PM. Thank you for the opportunity to participate in the care of this patient. Rox Brown PT, DPT, CLT [facility] [place], [place]
--- NOTE | 2021-05-22 17:29 | SP_ITS ---
Date of service: 05/22/21 Time of Service: 17:29 Subjective Clinical (Bedside) Swallow Evaluation Speech Language Pathology Patient received alert/awake, reclined with HOB elevated, and agreeable to evaluation, able to communicate wants/needs effectively with repetition required at times; able to demonstrate comprehension of recommendations for safe p.o. intake upon discharge once deemed medically stable, however f/u with caregiver (sister Chantal, caregivers at [facility]) also recommended given patient cognitive status. This CREDIT BALANCE SPECIALIST spoke with sister Chantal to obtain further background hx re: dysphagia, inform treatment plan of care. Objective Objective Precautions: DNR/DNI HPI: Pt is a 75 yo female with pmhx significant for bipolar disorder, schizophrenia ,developmental delay, diabetes mellitus type 2, obstructive sleep apnea on CPAP, prior episode of acute hypoxic respiratory failure, GERD; admitted this date with acute respiratory distress, hypoxia, acute bronchitis; per ED chart review pt is DNR/DNI, brought in by caregiver for worsening shortness of breath for a few days after having a few days of n/v (Chantal reports patient had GI bug which casued both vomiting/diarrhea, had since resolved, but patient requested to be brought to ED given respiratory concerns). She also has had abdominal pain. Given her developmental delay history is limited but she states she came in for shortness of breath that has been worsening over a few days along with a cough. She denies chest pain but does have upper abdominal pain. Currently breathing is stabilized with face mask / 3L 02, but as patient does have hx of pneumonia and documented dysphagia, MD has requested CREDIT BALANCE SPECIALIST consult to address dysphagia management and provide recommendations re: aspiration precautions given report of recent nausea and vomiting. Pt currently on Diabetes Consistent CHO diet, clear liquids with instruction to advance as tolerated. Most Recent Imagin05/22/21: CT Chest No evidence of acute process. Past Imaging: VFSE/MBSS performed 07/08/2016 Negative for aspiration per Radiologist report; unable to locate CREDIT BALANCE SPECIALIST report for review. Patient has been admitted previously with question of aspiration pneumonia; CREDIT BALANCE SPECIALIST was not consulted at that time; per chart review, patient currently resides with sisterChantal [phone]. Per RN, patient is currently tolerating honey thickened liquids (Level 3) while on unit, confirmed that patient is also being provided HTL and pureed solids while at home with sister, Chantal; previous documentation describes patient being discharged on thickened liquids and pureed solids, does not specify diet modifications otherwise. Per Chantal, patient is also @ [place] [facility] for care during the day, does tend to lie flat with new recliner; Chantal is not sure if aspiration precautions are being followed in this setting. All Active Problems?(Updated 05/22/21 @ 09:49 by Hawa Bull DO) Acute respiratory distress (Acute) Hypoxia (Acute) Acute bronchitis (Acute) Nausea and vomiting (Acute) Poorly controlled type 2 diabetes mellitus (Acute) Pneumonia (Acute) Gastrostomy in place (Acute) Granuloma annulare (Acute) Hearing loss (Acute) Lactose intolerance (Acute) Obesity (Chronic) Hiatal hernia (Chronic) Neurogenic bladder (Acute) Venous insufficiency (Acute) Tremor (Acute) Obstructive sleep apnea (Chronic) C-PAP removed due to noncomplianceDiastolic heart failure (Chronic) Diabetes mellitus type 2, controlled (Acute) Skin rash (Acute) Chest pain, rule out acute myocardial infarction (Acute) Ileus (Acute) Impaired decision making (Chronic) Cognitive developmental delay (Chronic) On tube feeding diet (Chronic) Aspiration pneumonia (Acute) Dysphagia (Chronic) Atrial flutter (Acute) IDDM (insulin dependent diabetes mellitus) (Chronic) Schizophrenia (Chronic) Tardive dyskinesia (Chronic) Ambulatory dysfunction (Acute) DVT prophylaxis (Acute) Discharge planning issues (Acute) S/P percutaneous endoscopic gastrostomy (PEG) tube placement (Acute) Dysphagia causing pulmonary aspiration with swallowing (Chronic) Advance directive discussed with patient (Chronic) Chest pain (Acute) Atrial flutter (Chronic) Bipolar disorder (Chronic) Schizophrenia (Chronic) DVT prophylaxis (Chronic) Ambulatory dysfunction (Chronic) Developmental delay, borderline (Chronic) Migraine headache without aura (Chronic) Osteoporosis (Chronic) Depression with anxiety (Chronic) Chronic low back pain (Chronic) Osteoarthritis (Chronic) Hypothyroidism (Chronic) Arias's esophagus (Chronic) GERD (gastroesophageal reflux disease) (Chronic) Obstructive sleep apnea on CPAP (Chronic) Type 2 diabetes mellitus (Chronic) Hyperlipidemia (Chronic) Hypertension (Chronic) Urgency incontinence (Chronic 05/01/15) Tardive dyskinesia (Chronic 01/26/17) 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 H/O bilateral cataract extraction H/O tubal ligation H/O umbilical hernia repair History of hysterectomy with bilateral oophorectomy S/P cholecystectomy Social History/Home Situation: Pt lives with assist available from sister Chantal, [place] [facility] for care during day 3x/week OBJECTIVE: Predisposing dysphagia risk factors: tardive dyskinesia/akathisia, DMII, ARMAND, GERD, Arias's Esophagus, developmental delay, hiatal hernia, hx prior CVA w hx PEG placement Clinical signs of possible chronic dysphagia: longstanding hx dysphagia symptoms, overt s.s aspiration reported with thin liquids (not assessed clinically this date) Precipitating dysphagia risk factors / triggering event: acute bronchitis; respiratory failure, hypoxia Sp02: 95% RR: 25 / 3L oxygen via face mask Cranial nerve exam / Oral Motor: CN V: facial sensation intact to light touch labial protrusion WFL labial coordination/ROM impaired Jaw excursion/lateralization intact mastication impaired lingual/labial sensation intact suspect superior hyoid movement may be mildly reduced CN VII: lateral sulcus residue absent anterior spillage not observed salivation intact CN IX/X: palatal elevation - DNT Vocal Quality - WFL taste - WFL onset of swallow - suspect possible delay pharyngeal residue - possibly present, however pt denies globus nasopharyngeal regurgitation - denied by patient CN XII: bolus preparation/manipulation/control - likely impairment AP transit - possible delay lingual protrusion slight deviation to L lingual coordination impaired, ROM intact lingual residue DNT Dentition/Oral Structures/Hygiene: edentulous oral hygiene appears adequate-would benefit from caregiver education prior to d/c Language: verbal expression/fluency, naming, repetition, and auditory comprehension appear WFL for this evaluation Hearing: WFL for interview, not formally assessed Mental Status: AAOx2, recall of current events relatively intact Speech: dysarthric, occasionally unintelligible, able to understand with repetition Laryngeal function exam: Secretions: WFL Vocal quality: WFL MPT: DNT S/Z ratio: DNT Pitch range: WFL Cough: (volitional) perceptually WFL PO intake IDDSI 3: negative overt s.s aspiration via cup sip Gideon Swallow Protocol: DNT, patient politely refused additional po intake, stating I just can't right now, no thank you. and I choke with that [thin liquids]. Plan Short Term Goals: 1. Once medically cleared, patient will tolerate IDDSI levels 3/4 without s/sx aspiration provided training in/use of swallow strategies and aspiration precautions within 1 week. 2. Patient/caregiver(s) will demonstrate understanding of education related to normal vs disordered swallowing, relationship between respiration changes and deglutition / swallow-breath coordination, and recommended strategies for minimizing risks of aspiration pna/airway occlusion, including recommendation for repeat VFSE/MBSS. Coding Diagnoses Dysphagia R13.10 Assessment and Plan Assessment and plan (1) Dysphagia: Status: Chronic Assessment and plan: IMPRESSIONS: Patient is at moderate-high risk for aspiration-related pulmonary complication, given need for assist with oral hygiene & presumed reduced immunocompetence especially in context of recent respiratory illness and supposed viral infection per caregiver report; improvements in physical mobility and overall pulmonary function likely to further reduce this risk, although direct assistance and cueing will be required. Further CREDIT BALANCE SPECIALIST services warranted at this time. Provided education to patient, caregiver (sister Chantal) re: anatomy/physiology of swallowing mechanism, overt s/sx to monitor for re: potential aspiration of food / liquids, importance of thorough oral care, relationship between respiratory function changes and deglutition, discussion of repeat VFSE/MBSS with sister Chantal. - Patient and caregiver are open to repeat VFSE/MBSS on outpatient basis. - Patient would benefit from education/review of VFSE/MBSS procedure while still on unit. Instrumentation: Recommend patient/caregiver f/u with PCP to address recommendation of VFSE/MBSS once patient is medically cleared. Diet Texture Modification(s): IDDSI Level(s) 4-Pureed Solids, 3-Moderately Thick Liquids; thin liquids with CREDIT BALANCE SPECIALIST only at this time and per patient preference/after thorough oral care Medication Intake: as tolerated Alter medications only as advised by MD or Pharmacist RISK MANAGEMENT: Oral hygiene q4h/every 4 hours with full assist using friction with toothbrush on all oral structures as tolerated HOB upright as tolerated; upright for all PO intake. Encourage physical mobility as tolerated. Level of Assistance/Supervision: 1:1 close supervision for all PO intake, Assistive feeding with cues for strategies as outlined PO intake only when awake/alert Strategies/Adaptations/Assistive Equipment: Once medically cleared - Monitor for changes in RR prior to offering subsequent bite/sip Reduce auditory and/or visual distractions when eating, Provide verbal and/or visual cues to use recommended strategies, Small sips and bites when eating, Slow rate of intake, Alternate intake of liquids and solids, Small+frequent meals throughout day Posture/Positioning Needs: Maintain upright position at least 30 minutes after meals, Avoid meals/snacks 2- 3 hours prior to reclining/sleeping, Sleep with head of bed elevated to reduce likelihood of nocturnal reflux Plan: CREDIT BALANCE SPECIALIST to follow while on unit. Lilibeth Mcmillan MA CCC-CREDIT BALANCE SPECIALIST [phone] CREDIT BALANCE SPECIALIST CPT Code: 65840 Clinical Swallowing Evaluation
[2021-05-22] MEDS: Normal Saline Flush 10 ML SYR IVP (17:50)
[2021-05-22] MEDS: Albuterol 2.5 MG/3 ML INH SOLN VIAL UPD (20:04)
[2021-05-22] MEDS: Magnesium Oxide 400 MG TAB PO (21:38)
[2021-05-22] MEDS: Dexlansoprazole 30 MG CAP 60 MG PO (21:38)
[2021-05-22] MEDS: Cyclobenzaprine 10 MG TAB 5 MG PO (21:39)
[2021-05-22] MEDS: Simvastatin 20 MG TAB PO (21:39)
[2021-05-22] MEDS: Propranolol 20 MG TAB PO (21:39)
[2021-05-22] MEDS: clonazePAM 0.5 MG TAB 2.5 MG PO (21:39)
[2021-05-22] MEDS: Prazosin 1 MG CAP 2 MG PO (21:40)
[2021-05-22] MEDS: Ziprasidone 20 MG CAP PO (22:20)
[2021-05-22] MEDS: Insulin Glargine 300 UNITS/3 ML PEN 20 UNITS SC (22:22)
[2021-05-23] VITALS (11 sets, daily range): BP systolic 115–146; BP diastolic 68–78; PULSE 64–91; RESP 2–20; TEMP 36–36.9; O2SAT 93–99
[2021-05-23] MEDS: Levothyroxine 112 MCG TAB PO (04:44)
[2021-05-23] MEDS: Albuterol/Ipratropium 3 ML UPD VIAL UPD ×3 (04:44→17:39)
[2021-05-23 06:50] LABS: Abs Immature Grans 0.05 10^3/uL (0.0-0.06); Absolute Basophil Count 0.01 10^3/uL (0.0-0.2); Absolute Lymphocyte Count 2.76 10^3/uL (1.2-3.4); Absolute Monocyte Count 0.75 10^3/uL (0.1-0.8); Basophils % 0.1; HGB 14.5 g/dL (11.2-15.7); Immature Grans % 0.5; Lymphocytes % 25.9; MCH 29.1 pg (27.0-33.0); MPV 10.4 fL (8.0-11.0); Neutrophils % 66.5; Nucleated RBC 0 %; Platelet Count 248 10^3/uL (130-400); RBC 4.98 10^6/uL (3.93-5.22); RDW 12.2 % (11.7-14.6); RDW-SD 39.8 fL
[2021-05-23 07:03] LABS: Anion Gap 8.1 mmol/L (3-11); BUN 22 mg/dL (7-18); CO2 28.9 mmol/L (21.0-32.0); CREATININE 1.2 mg/dL (0.55-1.02); Calcium 8.7 mg/dL (8.5-10.1); Chloride 102 mmol/L (98-107); Estimated GFR 44.04 (mL/min/1.73m2); Glucose 295 mg/dL (74-106); Magnesium 2.1 mg/dL (1.8-2.4); Sodium 139 mmol/L (136-145)
[2021-05-23 07:14] LABS: WBC 10.67 10^3/uL (4.4-10.8)
[2021-05-23 07:15] LABS: MCV 88.4 fL (80-95)
[2021-05-23] MEDS: predniSONE 20 MG TAB 40 MG PO (08:09)
[2021-05-23] MEDS: Escitalopram 20 MG TAB PO (08:09)
[2021-05-23] MEDS: Aspirin 81 MG CHEW PO (08:09)
[2021-05-23] MEDS: Magnesium Oxide 400 MG TAB PO ×2 (08:10→21:21)
[2021-05-23] MEDS: Propranolol 20 MG TAB PO ×3 (08:10→21:21)
[2021-05-23] MEDS: Dexlansoprazole 30 MG CAP 60 MG PO (08:10)
[2021-05-23] MEDS: Multivitamin TAB 1 TAB PO (08:10)
[2021-05-23] MEDS: Docusate Sodium 100 MG CAP PO (08:10)
[2021-05-23] MEDS: Insulin Aspart 300 UNITS/3 ML PEN SC ×4 (08:10→21:22)
[2021-05-23] MEDS: Normal Saline Flush 10 ML SYR IVP ×4 (08:11→21:23)
--- NOTE | 2021-05-23 09:23 | OT.INIE ---
Occupational Therapy Notes Inpatient Occupational Therapy Evaluation Date: 05/23/21 Referring Doctor:Maryse Jewell MD OT Orders: Non urgent Precautions: Fall, standard, DNR/DNI PATIENT PROFILE/ADMITTING DIAGNOSIS: Patient is a 75-year-old female with developmental delay and tardive dyskinesia who presented to the ED on 05/22/2021 with complaints of increasing shortness of breath and difficulty breathing. Past Medical History: All Active Problems?(Updated 05/22/21 @ 09:49 by Hawa Bull DO) Acute respiratory distress (Acute) Hypoxia (Acute) Acute bronchitis (Acute) Nausea and vomiting (Acute) Poorly controlled type 2 diabetes mellitus (Acute) Pneumonia (Acute) Gastrostomy in place (Acute) Granuloma annulare (Acute) Hearing loss (Acute) Lactose intolerance (Acute) Obesity (Chronic) Hiatal hernia (Chronic) Neurogenic bladder (Acute) Venous insufficiency (Acute) Tremor (Acute) Obstructive sleep apnea (Chronic) C-PAP removed due to noncomplianceDiastolic heart failure (Chronic) Diabetes mellitus type 2, controlled (Acute) Skin rash (Acute) Chest pain, rule out acute myocardial infarction (Acute) Ileus (Acute) Impaired decision making (Chronic) Cognitive developmental delay (Chronic) On tube feeding diet (Chronic) Aspiration pneumonia (Acute) Dysphagia (Chronic) Atrial flutter (Acute) IDDM (insulin dependent diabetes mellitus) (Chronic) Schizophrenia (Chronic) Tardive dyskinesia (Chronic) Ambulatory dysfunction (Acute) DVT prophylaxis (Acute) Discharge planning issues (Acute) S/P percutaneous endoscopic gastrostomy (PEG) tube placement (Acute) Dysphagia causing pulmonary aspiration with swallowing (Chronic) Advance directive discussed with patient (Chronic) Chest pain (Acute) Atrial flutter (Chronic) Bipolar disorder (Chronic) Schizophrenia (Chronic) DVT prophylaxis (Chronic) Ambulatory dysfunction (Chronic) Developmental delay, borderline (Chronic) Migraine headache without aura (Chronic) Osteoporosis (Chronic) Depression with anxiety (Chronic) Chronic low back pain (Chronic) Osteoarthritis (Chronic) Hypothyroidism (Chronic) Arias's esophagus (Chronic) GERD (gastroesophageal reflux disease) (Chronic) Obstructive sleep apnea on CPAP (Chronic) Type 2 diabetes mellitus (Chronic) Hyperlipidemia (Chronic) Hypertension (Chronic) Urgency incontinence (Chronic 05/01/15) Tardive dyskinesia (Chronic 01/26/17) 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 H/O bilateral cataract extraction H/O tubal ligation H/O umbilical hernia repair History of hysterectomy with bilateral oophorectomy S/P cholecystectomy Social History/Home Situation: Philomena lived with her sister who provides mod to max (A) with bathing and dressing per pt report. Pt reports that she also needs (A) with eating and performance of almost all of her ADLs. Equipment owned/DME: unable to assess SUBJECTIVE: Pt was sitting in bed when OT arrived. She is agreeable to OT session and notes that she is tired. OBJECTIVE: General Observation: Pleasant, dasilva in place, IV in (R) UE, breathing mask on face Mental Status: A&Ox3 Pain: no c/o pain but c/o difficulty breathing ROM: RUE AROM WFL L UE AROM WFL STRENGTH: RUE 3/5 throughout LUE 3/5 throughout FUNCTIONAL MOBILITY/ADLS: BATHING Sitting in bed with max (A) Set up/clean up Bathing UE (I) face, Mod (A) (B) UE, min (A) abdomen, max (A) back Bathing LE max (A) DRESSING sitting in bed Dressing UE Mod (A) [facility] go GROOMING Requires mod (A) with brushing her hair notable tangles in the back of her hair required max (A) BALANCE: Static sitting Fair Dynamic Sitting Fair-Good SPECIAL TESTS: Daily Activity Limitations Standardized Measure [facility] AM -PAC ?6 clicks? Daily Activity Inpatient Short Form: Raw score: 9 Standardized score: 25.33 CMS score: 79.59% INFORMED CONSENT/EDUCATION: Pt instructed in purpose of OT Consult and plan of care. ASSESSMENT: Patient is a 75-year-old female referred to occupational therapy services with diagnosis of acute respiratory distress, hypoxia, acute bronchitis, nausea, poorly controlled DM, penumonia, tardive dyskinesia, ambulatory dysfunction, Atrial flutter, schizophrenia. Patient presents with clinical signs and symptoms consistent with dx, as demonstrated by the following impairment level findings/functional limitations: Impairments in ADL/IADL and leisure activities, decreased gross and fine motor control, requires (A) at baseline for ADLs, decreased functional mobility required for ADLs. AMPAC score 9 Patient is assessed as a Moderate [id number] complexity based on the following: History: see above Examination: see functional limitations as noted above Presentation: evolving Decision Making: AMPAC score 9 GOALS Goals x1 week 1.? Transfers SBA, FWW 2.? Dressing Sitting in chair pt will require mod (A) for LE and mod (A) for UE dressing. 3.? Bathing sitting in chair with max (A) set up (I) with UE bathing and Mod (A) LE bathing. 4.? Toileting Min (A) on commode 5.? Eating Min (A) with adaptive silverware PLAN OF CARE/TREATMENT PLAN: 1x/day, 3-5 days/ week x 1week Initiate Occupational Therapy Services for bathing, dressing, grooming, toileting, eating, transfer training. DISCHARGE RECOMMENDATIONS OT recommends that go to SNF for increased functional activity tolerance, increased functional (I) and progressive mobility required for ADL performance. TREATMENT TIME/MINUTES/CODES 35901, 31910, 25 minutes (09:05) Amber Atwood OTR/[facility]
[2021-05-23] MEDS: cefTRIAXone 1 GM/50 ML BAG IVPB (10:18)
--- NOTE | 2021-05-23 10:37 | PT.INTREAT ---
Date of service: 05/23/21 Time of Service: 10:37 PT Notes Visit Reasons: Acute Brochitis,Hypoxia Inpatient Physical Therapy Evaluation Date: 05/23/2021 Precautions: Fall.? Activity as tolerated.? Subjective: States that se feels much better today and is willing to try out getting out of bed. Reports that she does not use a walking device at home but state that she does not walk too far. Objective: General Observation: Patient seen lying in bed with IV in right UE. Telemetry monitoring on.? Dyskinesias at rest and worse with movement Mental Status: Alert and oriented as to person and place.? Unable to determine date and time. Pain: Denies Bed Mobility/Transfers: Supine to sit minimal assist with HOB at 30 degrees Sit to stand contact-guard assist Stand to sit bed assist Bed to chair assist Gait: 8 steps with FWW with desat to 85% on 6 L after activity but was able to recover to 90% after about 1 minute of rest. Dyskinesias increased with movement. Balance: Static Sitting: Fair Dynamic Sitting: Fair Static Standing: Fair Dynamic Standing: Fair Assessment: Now much more able to move and willing to move. Oxygen supplementation needed to be titrated up to 6 L/minute for transfer and in-room ambulation for this session. DISCHARGE RECOMMENDATIONS: [] ? Home with no services [] [] ? Home with services [specify] [] ? Home with outpatient PT [] [X] ? SNF for continued rehabilitation.? Patient will benefit from [facility] facility placement for continued skilled physical therapy services in order to progress mobility level, strength, and balance in preparation for a safe discharge to home. [] ? Nursing Home Care [] [] ? SNF versus LTC based on ability to participate and progress [] TREATMENT CODE/TIME: 45097 x 20 minutes, 66323 x 10 minutes beginning at 10:37 AM.
--- NOTE | 2021-05-23 10:39 | PDOC.CMIN ---
- If Service Date Differs Date of service: 05/23/21 Time of Service: 10:39 Care Management Initial Assess REASON FOR HOSPITALIZATION:: Acute bronchitis, hypoxia. PAST MEDICAL HISTORY/PAST SURGICAL HISTORY:: All Active Problems: Acute respiratory distress (Acute), Hypoxia (Acute),. Acute bronchitis (Acute), Nausea and vomiting (Acute), Poorly controlled type 2 diabetes mellitus (Acute), Pneumonia (Acute), Gastrostomy in place (Acute), Granuloma annulare (Acute), Hearing loss (Acute), Lactose intolerance (Acute), Obesity (Chronic), Hiatal hernia (Chronic), Neurogenic bladder (Acute), Venous insufficiency (Acute), Tremor (Acute), Obstructive sleep apnea (Chronic) - C-PAP removed due to noncompliance, Diastolic heart failure (Chronic), Diabetes mellitus type 2, controlled (Acute),. Skin rash (Acute), Chest pain, rule out acute myocardial infarction (Acute),. Ileus (Acute), Impaired decision making (Chronic), Cognitive developmental delay (Chronic), On tube feeding diet (Chronic), Aspiration pneumonia (Acute), Dysphagia (Chronic), Atrial flutter (Acute), IDDM (insulin dependent diabetes mellitus) (Chronic), Schizophrenia (Chronic),. Tardive dyskinesia (Chronic), Ambulatory dysfunction (Acute), DVT prophylaxis (Acute), Discharge planning issues (Acute), S/P percutaneous endoscopic gastrostomy (PEG) tube placement (Acute), Dysphagia causing pulmonary aspiration with swallowing (Chronic), Advance directive discussed with patient (Chronic), Chest pain (Acute), Atrial flutter (Chronic), Bipolar disorder (Chronic), Schizophrenia (Chronic), DVT prophylaxis (Chronic), Ambulatory dysfunction (Chronic), Developmental delay, borderline (Chronic), Migraine headache without aura (Chronic),. Osteoporosis (Chronic), Depression with anxiety (Chronic), Chronic low back pain (Chronic), Osteoarthritis (Chronic), Hypothyroidism (Chronic),. Arias's esophagus (Chronic), GERD (gastroesophageal reflux disease) (Chronic), Obstructive sleep apnea on CPAP (Chronic), Type 2 diabetes mellitus (Chronic), Hyperlipidemia (Chronic), Hypertension (Chronic),. 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 Medical History: Adenomatous polyp of colon and Dysuria. Surgical History: H/O bilateral cataract extraction, H/O tubal ligation,. H/O umbilical hernia repair, History of hysterectomy with bilateral oophorectomy, and S/P cholecystectomy. PREVIOUS FUNCTIONAL STATUS/SOCIAL/FAMILY SUPPORTS:: Philomena resides in [facility] with her sister, Chantal, who is also her caregiver. Philomena formerly lived at a detention but moved in with her sister approximately 2 years ago. Philomena has a loving supportive family. CURRENT FUNCTIONAL STATUS:: Philomena is asleep when CM comes to meet with her. Instead of waking her up, CM chooses to contact her sister and DPOA, Chantal, who provides information for this assessment. ADVANCE DIRECTIVES:: On file; sister Chantal Rapp is appointed as Health Care Agent. Has patient been provided with info about the portal/API?: No Did the patient sign up for the portal?: No CODE STATUS:: DNR/DNI INSURANCE COVERAGE / FINANCIAL ISSUES:: Medicare and Medicaid. CURRENT HOME/COMMUNITY SERVICES/EQUIPMENT:: [employer] 3 x per week (Wednesday, and Wednesday). She lives with her sister, Chantal, who is her caregiver. Philomena has [facility] - moderate needs and her high risk case manager is Lizbeth Navarrete. She also sees Dr. Castellanos of [facility] for psychiatric medication management. Philomena recently got a lift chair and her sister says that she had a Bipap machine but it was sent back because she wouldn't wear it at night. PRIMARY CARE PHYSICIAN:: Leti Franz MD ([facility]). POTENTIAL DISCHARGE NEEDS:: Follow up with PCP and discharge plan of care. PATIENT/FAMILY EDUCATION NEEDS:: Review discharge instructions with caregiver including medications and follow up plan of care; discuss Ask Me Three. ANTICIPATED BARRIERS TO DISCHARGE:: No barriers identified at this time. TRANSPORTATION:: Via private vehicle by family. PLAN:: Philomena will likely be discharged to her sister's home with new HH RN and PT when medically cleared. She will follow up with her PCP and plan of care as directed. Family will drive her home via private vehicle when ready. CM will continue to follow.
[2021-05-23] MEDS: Polyethylene Glycol 3350 17 GM PACKET PO ×2 (11:29→21:24)
[2021-05-23] MEDS: DOXYCYCLINE 100 MG in Normal Saline 100 ML IVPB ×2 (11:56→22:32)
[2021-05-23] MEDS: Enoxaparin 40 MG/0.4 ML SYR SC (12:07)
[2021-05-23] MEDS: Furosemide 40 MG/4 ML VIAL IVP (14:49)
--- NOTE | 2021-05-23 15:24 | PT.INNT ---
Date of service: 05/23/21 Time of Service: 15:24 PT Notes Visit Reasons: Acute Brochitis,Hypoxia 05/23/2021 Per nursing, hold afternoon PT session as patient is currently on Bipap and demonstrating high HR and low O2 saturation. Will attempt to resume PT services tomorrow morning, if appropriate.
--- NOTE | 2021-05-23 17:12 | W.PM.PROGNOT ---
Date of Service Date of service: 05/23/21 Time of Service: 17:14 Assessment and Plan Assessment and plan (1) Hypoxia: Status: Acute Assessment and plan: Multifactorial, due to fluid overload as well as due to suspected acute bronchitis. D/c IVF. Has diuresed well. Place on BiPAP (in the ER, did better with BiPAP than CPAP). BiPAP today while sleeping. Had held lasix this AM d/t increased creatinine but gave later when required increased supplemental O2. Treating bronchitis with prednisone, doxycycline, ceftriaxone, scheduled and prn nebs No evidence of PNA on CT. (2) Acute respiratory distress: Status: Acute Assessment and plan: As above (3) Diastolic heart failure: Status: Chronic Assessment and plan: Cont diuretic (monitor creatinine). LVEF preserved on echo. (4) Acute bronchitis: Status: Acute Assessment and plan: As above (5) Nausea and vomiting: Status: Acute Assessment and plan: Not currently experiencing this. No abdominal pain. No evidence of an acute process on imaging. On diabetic pureed/moderately thick liquid diet (6) Dysphagia: Status: Chronic Assessment and plan: Chronic, in setting of tardive dyskinesia. Used to have a gastrostomy tube, but it has since been removed. Speech therapy consult ordered. pureed/moderately thick liquid diet (7) Obstructive sleep apnea: Status: Chronic Assessment and plan: To sleep with BiPAP at night (8) Discharge planning issues: Status: Acute Assessment and plan: DNR/DNI PT consult OT consult Palliative care consult (9) DVT prophylaxis: Status: Acute Assessment and plan: SQ enoxaparin Subjective Subjective Patient reports: no new complaints and feels better; denies nausea, vomiting or shortness of breath Exam Narrative Exam Narrative: General: Very pleasant elderly female lying in bed. NAD. lip smacking movements c/w tardive dyskinesia, A&Ox3, speaks in short sentences; poor history provider Neurological: A&Ox3, tardive dyskinesia, no focal deficits Psychiatric: Pleasant, cooperative. Affect appropriate Skin: Visible skin intact; scar from removal of gastrostomy tube is well healed HEENT: Atraumatic, normocephalic, MMM, edentuous, no JVD Cardiovascular: RRR, S1, S2 Lungs: rhonchi on expiration B Gastrointestinal: soft, nontender, nondistended, former gastrostomy site is well healed Genitourinary: has a dasilva Extremities: No pedal edema, calf tenderness Objective Last Vital Signs Temp 36.8 C 05/23/21 11:30 Pulse 70 05/23/21 12:55 Resp 20 05/23/21 11:30 BP 131/70 05/23/21 11:30 Pulse Ox 99 05/23/21 13:23 Laboratory Results - last 24 hr 05/23/21 05/23/21 06:28 06:28 WBC 10.67 D RBC 4.98 Hgb 14.5 Hct 44.0 MCV 88.4 D MCH 29.1 MCHC 33.0 RDW 12.2 Plt Count 248 MPV 10.4 Immature Gran % 0.5 Neutrophils % 66.5 Lymphocytes % 25.9 Monocytes % 7.0 Eosinophils % 0.0 Basophils % 0.1 Nucleated RBC % 0 Absolute Neutrophils 7.10 H Absolute Lymphocytes 2.76 Absolute Monocytes 0.75 Absolute Eosinophils 0.00 Absolute Basophils 0.01 Sodium 139 Potassium 4.0 Chloride 102 Carbon Dioxide 28.9 Anion Gap 8.1 BUN 22 H D Creatinine 1.2 H Estimated GFR/1.73 m2 44.04 Glucose 295 H D Calcium 8.7 Magnesium 2.1
--- NOTE | 2021-05-23 17:20 | STREC_ITS ---
Date of service: 05/23/21 Time of Service: 17:20 Speech Therapy Recommendations Report ST Recommendations: [employer] MA[employer]TE[employer]CE CONSULTANT NON-TREATMENT NOTE Patient attempting to contact patient this date multiple times, but patient has been on BI-PAP, unable to participate in PO intake or trials. Prior recommendations and plan of care stand ( BELOW) if/when her respiratory status improves. RECOMMENDATIONS: - Patient and caregiver are open to repeat VFSE/MBSS on outpatient basis. - Patient would benefit from education/review of VFSE/MBSS procedure while still on unit. Instrumentation:?Recommend patient/caregiver f/u with PCP to address recommendation of VFSE/MBSS once patient is medically cleared. Diet Texture Modification(s): IDDSI Level(s) ?4-Pureed Solids, 3-Moderately Thick Liquids; thin liquids with [employer]CE CONSULTANT only at this time and per patient preference/after thorough oral care Medication Intake: as tolerated Alter medications only as advised by MD or Pharmacist RISK MANAGEMENT: Oral hygiene q4h/every 4 hours with full assist using friction with toothbrush on all oral structures as tolerated HOB upright as tolerated; upright for all PO intake. Encourage physical mobility as tolerated. Level of Assistance/Supervision: 1:1 close supervision for all PO intake, Assistive feeding with cues for strategies as outlined PO intake only when awake/alert? Strategies/Adaptations/Assistive Equipment: Once medically cleared - Monitor for changes in RR prior to offering subsequent bite/sip Reduce auditory and/or visual distractions when eating, Provide verbal and/or visual cues to use recommended strategies, Small sips and bites when eating, Slow rate of intake, Alternate intake of liquids and solids, Small+frequent meals throughout day Posture/Positioning Needs: Maintain upright position at least 30 minutes after meals, Avoid meals/snacks 2- 3 hours prior to reclining/sleeping, Sleep with head of bed elevated to reduce likelihood of nocturnal reflux Plan: [employer]CE CONSULTANT to follow while on unit. ? Coding
[2021-05-23] MEDS: Prazosin 1 MG CAP 2 MG PO (21:20)
[2021-05-23] MEDS: clonazePAM 0.5 MG TAB 2.5 MG PO (21:20)
[2021-05-23] MEDS: Cyclobenzaprine 10 MG TAB 5 MG PO (21:21)
[2021-05-23] MEDS: Insulin Glargine 300 UNITS/3 ML PEN 20 UNITS SC (21:21)
[2021-05-23] MEDS: Simvastatin 20 MG TAB PO (21:21)
[2021-05-23] MEDS: Ziprasidone 20 MG CAP PO (21:21)
[2021-05-24] VITALS (11 sets, daily range): BP systolic 114–148; BP diastolic 70–76; PULSE 61–76; RESP 2–24; TEMP 36.1–37; O2SAT 92–98
[2021-05-24] MEDS: Albuterol/Ipratropium 3 ML UPD VIAL UPD ×3 (06:37→17:47)
[2021-05-24] MEDS: Levothyroxine 112 MCG TAB PO (06:37)
[2021-05-24 06:55] LABS: Anion Gap 6.7 mmol/L (3-11); BUN 24 mg/dL (7-18); CO2 31.3 mmol/L (21.0-32.0); Calcium 8.6 mg/dL (8.5-10.1); Chloride 102 mmol/L (98-107); Estimated GFR 54.35 (mL/min/1.73m2); Glucose 149 mg/dL (74-106); Potassium 3.5 mmol/L (3.5-5.1); Sodium 140 mmol/L (136-145)
[2021-05-24] MEDS: Magnesium Oxide 400 MG TAB PO ×2 (09:13→21:23)
[2021-05-24] MEDS: Multivitamin TAB 1 TAB PO (09:13)
[2021-05-24] MEDS: Propranolol 20 MG TAB PO ×3 (09:13→21:22)
[2021-05-24] MEDS: Polyethylene Glycol 3350 17 GM PACKET PO ×2 (09:14→21:23)
[2021-05-24] MEDS: Escitalopram 20 MG TAB PO (09:14)
[2021-05-24] MEDS: Aspirin 81 MG CHEW PO (09:14)
[2021-05-24] MEDS: Dexlansoprazole 30 MG CAP 60 MG PO (09:14)
[2021-05-24] MEDS: predniSONE 20 MG TAB 40 MG PO (09:14)
[2021-05-24] MEDS: cefTRIAXone 1 GM/50 ML BAG IVPB (09:14)
[2021-05-24] MEDS: Furosemide 40 MG/4 ML VIAL IVP ×2 (09:25→16:48)
[2021-05-24] MEDS: Normal Saline Flush 10 ML SYR IVP ×3 (09:25→21:23)
[2021-05-24] MEDS: Insulin Aspart 300 UNITS/3 ML PEN SC ×4 (09:45→21:23)
[2021-05-24] MEDS: DOXYCYCLINE 100 MG in Normal Saline 100 ML IVPB ×2 (10:49→21:21)
--- NOTE | 2021-05-24 11:58 | PT.INTREAT ---
Date of service: 05/24/21 Time of Service: 09:50 PT Notes Visit Reasons: Acute Brochitis,Hypoxia Inpatient Physical Therapy Treatment Note [facility] Date: 05/24/2021 PRECAUTIONS: Fall, Activity as tolerated SUBJECTIVE: Philomena reports that she is feeling much better today. She is pleasant and agreeable to participating in PT. OBJECTIVE: PAIN: No c/o pain BED MOBILITY/TRANSFERS Supine-sit: SBA with HOB at 40 degrees Sit-stand: SBA Stand-sit: SBA Bed-Chair: SBA GAIT Assistive Device: FWW Weight bearing: Full Assist: SBA Distance: 5' Deviation: Refused further gait training THEREX: Patient completes static standing with FWW support 2 x1 minute and short-step marching in place x30 seconds. VITALS: SaO2: 94-95% on 4L O2 throughout session ASSESSMENT: Patient tolerated session with complaint of increased fatigue with activity. She was able to tolerate marchin in place and static standing with FWW support 2 x1 minute. PLAN: Continue with global strengthening and gait training for improved mobility and activity tolerance. TREATMENT CODE/TIME: 24 minutes; 88653 x2 (09:50)
[2021-05-24] MEDS: Enoxaparin 40 MG/0.4 ML SYR SC (12:09)
[2021-05-24] MEDS: Albuterol 2.5 MG/3 ML INH SOLN VIAL UPD ×2 (13:52→21:46)
--- NOTE | 2021-05-24 14:16 | W.PM.PROGNOT ---
Date of Service Date of service: 05/24/21 Time of Service: 14:20 Assessment and Plan Assessment and plan (1) Hypoxia: Start date: 05/24/21 Start time: 14:32 Status: Acute Assessment and plan: Multifactorial, due to fluid overload as well as due to suspected acute bronchitis. Improving. Patient states feeling better down to 1 L NC Continue diuresing with lasix, patient gained 1 kg. Will do BID dosing lasix as she has + 2 pitting edema to BLE Treating bronchitis with prednisone, doxycycline, ceftriaxone, scheduled and prn nebs No evidence of PNA on CT. (2) Acute respiratory distress: Start date: 05/24/21 Start time: 14:34 Status: Resolved Assessment and plan: resolved. She does get anxious, causing SOB ativan ordered for PRN for this (3) Diastolic heart failure: Start date: 05/24/21 Start time: 14:35 Status: Chronic Assessment and plan: Cont diuretic (monitor creatinine). LVEF preserved on echo. (4) Acute bronchitis: Start date: 05/24/21 Start time: 14:35 Status: Acute Assessment and plan: As above (5) Nausea and vomiting: Start date: 05/24/21 Start time: 14:35 Status: Resolved Assessment and plan: resolved, no n/v since admission (6) Dysphagia: Start date: 05/24/21 Start time: 14:36 Status: Chronic Assessment and plan: Chronic, in setting of tardive dyskinesia. Used to have a gastrostomy tube, but it has since been removed. Speech therapy consult ordered. pureed/moderately thick liquid diet No teeth as well which contributes to not being able to eat regular diet. (7) Obstructive sleep apnea: Start date: 05/24/21 Start time: 14:37 Status: Chronic Assessment and plan: To sleep with BiPAP at night (8) DVT prophylaxis: Start date: 05/24/21 Start time: 14:37 Status: Acute Assessment and plan: SQ enoxaparin (9) Discharge planning issues: Start date: 05/24/21 Start time: 14:37 Status: Acute Assessment and plan: DNR/DNI PT consult OT consult Palliative care consult discussed with Dr. Ordaz Subjective Subjective Patient reports: feels better Interval history since last seen: Patient states she is feeling better. She is down to 1 L on NC. She does have some wheezing, will order duoneb now. She also has + 2 pitting edema with 1 kg increase. Increase lasix to BID, urine in dasilva is dark urine. Monitor wt and urine output. Exam Narrative Exam Narrative: General: Very pleasant elderly female lying in bed. NAD. lip smacking movements c/w tardive dyskinesia, A&Ox3, speaks in short sentence Neurological: A&Ox3, tardive dyskinesia, no focal deficits Psychiatric: Pleasant, cooperative. Affect appropriate Skin: Visible skin intact; scar from removal of gastrostomy tube is well healed HEENT: Atraumatic, normocephalic, MMM, edentuous, no JVD Cardiovascular: RRR, S1, S2 Lungs: with inspiratory and expiratory wheezing otherwise only requiring 1 NC Gastrointestinal: soft, nontender, nondistended, former gastrostomy site is well healed Genitourinary: has a dasilva with dark urine Extremities: No pedal edema, calf tenderness Objective Last Vital Signs Temp 36.5 C 05/24/21 11:44 Pulse 67 05/24/21 11:44 Resp 23 05/24/21 11:44 BP 148/74 H 05/24/21 11:44 Pulse Ox 98 05/24/21 11:44 Laboratory Results - last 24 hr 05/24/21 06:15 Sodium 140 Potassium 3.5 Chloride 102 Carbon Dioxide 31.3 Anion Gap 6.7 BUN 24 H Creatinine 1.0 Estimated GFR/1.73 m2 54.35 Glucose 149 H D Calcium 8.6
[2021-05-24] MEDS: Ziprasidone 20 MG CAP PO (21:22)
[2021-05-24] MEDS: Cyclobenzaprine 10 MG TAB 5 MG PO (21:22)
[2021-05-24] MEDS: Simvastatin 20 MG TAB PO (21:22)
[2021-05-24] MEDS: clonazePAM 0.5 MG TAB 2.5 MG PO (21:22)
[2021-05-24] MEDS: Prazosin 1 MG CAP 2 MG PO (21:23)
[2021-05-24] MEDS: Insulin Glargine 300 UNITS/3 ML PEN 20 UNITS SC (21:24)
[2021-05-25] VITALS (10 sets, daily range): BP systolic 120–145; BP diastolic 72–87; PULSE 70–77; RESP 5–22; TEMP 36.2–36.9; O2SAT 90–96
[2021-05-25] MEDS: Albuterol/Ipratropium 3 ML UPD VIAL UPD ×3 (05:34→17:44)
[2021-05-25] MEDS: Levothyroxine 112 MCG TAB PO (05:34)
[2021-05-25 06:52] LABS: Abs Immature Grans 0.02 10^3/uL (0.0-0.06); Absolute Basophil Count 0.03 10^3/uL (0.0-0.2); Absolute Eosinophil Count 0.12 10^3/uL (0.0-0.7); Absolute Lymphocyte Count 4.56 10^3/uL (1.2-3.4); Absolute Monocyte Count 0.83 10^3/uL (0.1-0.8); Basophils % 0.3; Eosinophils % 1.1; HCT 46.4 % (36.0-46.0); Immature Grans % 0.2; Lymphocytes % 42.1; MCHC 32.3 % (32.0-36.0); MCV 89.6 fL (80-95); MPV 10.6 fL (8.0-11.0); Monocytes % 7.7; Neutrophils % 48.6; Nucleated RBC 0 %; Platelet Count 268 10^3/uL (130-400); RBC 5.18 10^6/uL (3.93-5.22); RDW-SD 39.8 fL; WBC 10.83 10^3/uL (4.4-10.8)
[2021-05-25 06:56] LABS: Absolute Neutrophil Count 5.26 10^3/uL (1.2-6.7)
[2021-05-25 07:06] LABS: Anion Gap 7.4 mmol/L (3-11); BUN 28 mg/dL (7-18); CO2 33.6 mmol/L (21.0-32.0); Calcium 8.6 mg/dL (8.5-10.1); Chloride 100 mmol/L (98-107); Estimated GFR 54.35 (mL/min/1.73m2); Glucose 157 mg/dL (74-106); Potassium 3.5 mmol/L (3.5-5.1); Sodium 141 mmol/L (136-145)
[2021-05-25] MEDS: Furosemide 40 MG/4 ML VIAL IVP (08:06)
[2021-05-25] MEDS: Dexlansoprazole 30 MG CAP 60 MG PO (08:06)
[2021-05-25] MEDS: Propranolol 20 MG TAB PO ×3 (08:07→21:45)
[2021-05-25] MEDS: predniSONE 20 MG TAB 40 MG PO (08:07)
[2021-05-25] MEDS: Docusate Sodium 100 MG CAP PO ×2 (08:07→13:05)
[2021-05-25] MEDS: Aspirin 81 MG CHEW PO (08:07)
[2021-05-25] MEDS: Multivitamin TAB 1 TAB PO (08:07)
[2021-05-25] MEDS: Polyethylene Glycol 3350 17 GM PACKET PO ×2 (08:07→21:46)
[2021-05-25] MEDS: Escitalopram 20 MG TAB PO (08:07)
[2021-05-25] MEDS: Magnesium Oxide 400 MG TAB PO ×2 (08:07→21:46)
[2021-05-25] MEDS: cefTRIAXone 1 GM/50 ML BAG IVPB (09:49)
[2021-05-25] MEDS: Normal Saline Flush 10 ML SYR IVP (09:49)
--- NOTE | 2021-05-25 10:24 | PT.INTREAT ---
Date of service: 05/25/21 Time of Service: 10:02 PT Notes Visit Reasons: Acute Brochitis,Hypoxia Inpatient Physical Therapy Treatment Note [facility] Date: 05/25/2021 PRECAUTIONS: Fall, Activity as tolerated SUBJECTIVE: Philomena reports that she is feeling tired today. She is pleasant and agreeable to participating in PT. She reports that she is walking and transferring as well as she does at home, that she is at her baseline level of function. OBJECTIVE: PAIN: No c/o pain BED MOBILITY/TRANSFERS Sit-supine: S with HOB flat Sit-stand: SBA Stand-sit: SBA Chair-bed: SBA GAIT Assistive Device: FWW Weight bearing: Full Assist: SBA Distance: 25' Deviation: 1L O2 THEREX: Patient was instructed in bridging, heels slides, and ankle pumping exercises, in a supine position, as per flow sheet. ASSESSMENT: Patient tolerated session without complaint. She was able to tolerate a progression in gait distance with FWW support and SBA. Per patient report, she is at her baseline level of function. PLAN: Continue with global strengthening and gait training for improved mobility and activity tolerance. TREATMENT CODE/TIME: 18 minutes; [id number] (10:02)
[2021-05-25] MEDS: DOXYCYCLINE 100 MG in Normal Saline 100 ML IVPB (10:35)
[2021-05-25] MEDS: Insulin Aspart 300 UNITS/3 ML PEN SC ×3 (11:59→21:47)
[2021-05-25] MEDS: Cefpodoxime 200 MG TAB PO ×2 (11:59→21:45)
[2021-05-25] MEDS: Enoxaparin 40 MG/0.4 ML SYR SC (11:59)
--- NOTE | 2021-05-25 13:07 | W.PM.PROGNOT ---
Date of Service Date of service: 05/25/21 Time of Service: 13:07 Assessment and Plan Assessment and plan (1) Hypoxia: Start date: 05/25/21 Start time: 13:33 Status: Acute Assessment and plan: resolved. On RA. Feels much better possible discharge tomorrow (2) Acute respiratory distress: Start date: 05/25/21 Start time: 13:34 Status: Resolved Assessment and plan: resolved. She does get anxious, causing SOB ativan ordered for PRN for this (3) Diastolic heart failure: Start date: 05/25/21 Start time: 13:34 Status: Chronic Assessment and plan: Down 5 kg. Does not appear to be dry. euvolemic Will d/c IVP lasix. Start on oral lasix daily, no edema to bilateral lower extremities LVEF preserved on echo. (4) Acute bronchitis: Start date: 05/25/21 Start time: 13:36 Status: Acute Assessment and plan: As above (5) Nausea and vomiting: Start date: 05/25/21 Start time: 13:36 Status: Resolved Assessment and plan: resolved, no n/v since admission (6) Dysphagia: Start date: 05/25/21 Start time: 13:36 Status: Chronic Assessment and plan: Chronic, in setting of tardive dyskinesia. Used to have a gastrostomy tube, but it has since been removed. Speech therapy consult ordered. pureed/moderately thick liquid diet No teeth as well which contributes to not being able to eat regular diet. (7) Obstructive sleep apnea: Start date: 05/25/21 Start time: 13:37 Status: Chronic Assessment and plan: To sleep with BiPAP at night (8) DVT prophylaxis: Start date: 05/25/21 Start time: 13:37 Status: Acute Assessment and plan: SQ enoxaparin (9) Discharge planning issues: Start date: 05/25/21 Start time: 13:37 Status: Acute Assessment and plan: DNR/DNI PT consult OT consult Palliative care consult discussed with Dr. Ordaz Subjective Subjective Patient reports: no new complaints Interval history since last seen: Doing well. Off oxygen. Switched to oral medication in anticipation for discharge tomorrow Exam Narrative Exam Narrative: General: Very pleasant elderly female sitting up in chair. NAD. lip smacking movements c/w tardive dyskinesia, A&Ox3, speaks in short sentence Neurological: A&Ox3, tardive dyskinesia, no focal deficits Psychiatric: Pleasant, cooperative. Affect appropriate Skin: Visible skin intact; scar from removal of gastrostomy tube is well healed HEENT: Atraumatic, normocephalic, MMM, edentuous, no JVD Cardiovascular: RRR, S1, S2 Lungs: scattered expiratory wheezing, no rales, rhonchi Gastrointestinal: soft, nontender, nondistended, former gastrostomy site is well healed Genitourinary: dasilva dcd Extremities: No pedal edema, no calf tenderness Objective Last Vital Signs Temp 36.3 C L 05/25/21 07:40 Pulse 75 05/25/21 07:40 Resp 20 05/25/21 11:12 BP 120/73 05/25/21 07:40 Pulse Ox 90 L 05/25/21 11:13 Laboratory Results - last 24 hr 05/25/21 05/25/21 06:01 06:01 WBC 10.83 H RBC 5.18 Hgb 15.0 Hct 46.4 H MCV 89.6 MCH 29.0 MCHC 32.3 RDW 12.0 Plt Count 268 MPV 10.6 Immature Gran % 0.2 Neutrophils % 48.6 Lymphocytes % 42.1 Monocytes % 7.7 Eosinophils % 1.1 Basophils % 0.3 Nucleated RBC % 0 Absolute Neutrophils 5.26 Absolute Lymphocytes 4.56 H Absolute Monocytes 0.83 H Absolute Eosinophils 0.12 Absolute Basophils 0.03 Sodium 141 Potassium 3.5 Chloride 100 Carbon Dioxide 33.6 H Anion Gap 7.4 BUN 28 H Creatinine 1.0 Estimated GFR/1.73 m2 54.35 Glucose 157 H Calcium 8.6
[2021-05-25] MEDS: Albuterol 2.5 MG/3 ML INH SOLN VIAL UPD (21:40)
[2021-05-25] MEDS: Cyclobenzaprine 10 MG TAB 5 MG PO (21:45)
[2021-05-25] MEDS: Doxycycline Hyclate 100 MG CAP PO (21:45)
[2021-05-25] MEDS: Simvastatin 20 MG TAB PO (21:45)
[2021-05-25] MEDS: Prazosin 1 MG CAP 2 MG PO (21:45)
[2021-05-25] MEDS: Ziprasidone 20 MG CAP PO (21:46)
[2021-05-25] MEDS: clonazePAM 0.5 MG TAB 2.5 MG PO (21:46)
[2021-05-25] MEDS: Insulin Glargine 300 UNITS/3 ML PEN 20 UNITS SC (21:46)
[2021-05-26 03:22] VITALS: BP 125/75; PULSE 77; RESP 20; TEMP 36.5; O2SAT 96
[2021-05-26] MEDS: Levothyroxine 112 MCG TAB PO (05:30)
[2021-05-26] MEDS: Albuterol/Ipratropium 3 ML UPD VIAL UPD ×2 (05:30→12:33)
[2021-05-26 06:39] LABS: Nucleated RBC 0 %
[2021-05-26 06:45] LABS: Abs Immature Grans 0.01 10^3/uL (0.0-0.06); HCT 44.8 % (36.0-46.0); HGB 14.6 g/dL (11.2-15.7); MCH 29.1 pg (27.0-33.0); MCHC 32.6 % (32.0-36.0); MCV 89.4 fL (80-95); MPV 10.5 fL (8.0-11.0); Platelet Count 239 10^3/uL (130-400); RBC 5.01 10^6/uL (3.93-5.22); RDW 12.1 % (11.7-14.6); RDW-SD 39.8 fL; WBC 11.22 10^3/uL (4.4-10.8)
[2021-05-26 06:49] LABS: Anion Gap 6.1 mmol/L (3-11); BUN 22 mg/dL (7-18); CO2 33.9 mmol/L (21.0-32.0); Calcium 8.8 mg/dL (8.5-10.1); Chloride 102 mmol/L (98-107); Estimated GFR 54.35 (mL/min/1.73m2); Glucose 153 mg/dL (74-106); Magnesium 2.4 mg/dL (1.8-2.4); Potassium 3.2 mmol/L (3.5-5.1); Sodium 142 mmol/L (136-145)
[2021-05-26 06:53] LABS: Absolute Neutrophil Count 4.38 10^3/uL (1.2-6.7)
[2021-05-26 06:54] LABS: Absolute Eosinophil Count 0.11 10^3/uL (0.0-0.7); Atypical Lymphocytes % 7
[2021-05-26 06:55] LABS: Absolute Lymphocyte Count 5.83 10^3/uL (1.2-3.4); Diff Comment Manual Differential; RBC Morphology Normal
[2021-05-26 07:34] VITALS: BP 103/68; PULSE 67; RESP 18; TEMP 35.9; O2SAT 93
[2021-05-26] MEDS: Escitalopram 20 MG TAB PO (08:08)
[2021-05-26] MEDS: predniSONE 20 MG TAB 40 MG PO (08:08)
[2021-05-26] MEDS: Insulin Aspart 300 UNITS/3 ML PEN SC ×2 (08:08→11:31)
[2021-05-26] MEDS: Docusate Sodium 100 MG CAP PO (08:08)
[2021-05-26] MEDS: Dexlansoprazole 30 MG CAP 60 MG PO (08:08)
[2021-05-26] MEDS: Multivitamin TAB 1 TAB PO (08:08)
[2021-05-26] MEDS: Propranolol 20 MG TAB PO (08:08)
[2021-05-26] MEDS: Furosemide 20 MG TAB PO (08:08)
[2021-05-26] MEDS: Aspirin 81 MG CHEW PO (08:08)
[2021-05-26] MEDS: Magnesium Oxide 400 MG TAB PO (08:08)
[2021-05-26] MEDS: Polyethylene Glycol 3350 17 GM PACKET PO (08:09)
[2021-05-26] MEDS: Nystatin POWDER 60 GM JAR TP (08:09)
--- NOTE | 2021-05-26 09:21 | OTTR_ITS ---
Occupational Therapy Notes Occupational Therapy Inpatient Treatment Note Date: 05/26/21 PRECAUTIONS: Fall, standard, DNR/DNI SUBJECTIVE: Pt was sitting in chair when OT arrived. She is agreeable to OT session, she states that she is tired today. OBJECTIVE: PAIN:no c/o pain BATHING: sitting in chair with max (A) Set up/clean up min vc Upper Body: (I) face, min (B) UE, (I) abdomen Lower Body: (I) to (B) LE knees, max (A) lower legs (B) DRESSING: sitting in chair Upper Extremity: Min (A) don and doffing [facility] gown Lower Extremity: Max (A) don and doffing (B) socks Goal- To transition to pts to standing ADLS if symptoms allow. TREATMENT CODES/TIME: 22436, 15 minutes (09:05) Amber Atwood OTR/L [facility]
[2021-05-26] MEDS: Doxycycline Hyclate 100 MG CAP PO (09:34)
[2021-05-26] MEDS: Cefpodoxime 200 MG TAB PO (09:34)
[2021-05-26] MEDS: Potassium Chloride 20 MEQ TABCR 40 MEQ PO (09:34)
--- NOTE | 2021-05-26 09:48 | PDOC.CMDIS ---
- If Service Date Differs Date of service: 05/26/21 Time of Service: 09:48 Care Management Discharge Reason for Hospitalization: Acute bronchitis, hypoxia.
--- NOTE | 2021-05-26 10:00 | PDOC.CMDIS ---
- If Service Date Differs Date of service: 05/26/21 Time of Service: 10:00 LACE Index Scoring Tool - Questions: Length of Stay (in days): 4 - 6 Acuity (Admit via E.D.?): Yes Comorbidities: Diabetes w/o Complication E.D. Visits: 2 - Answers: Total Score: 10 Risk of Readmission: High Risk Care Management Discharge Reason for Hospitalization: Acute bronchitis, hypoxia. Discharge Plan: Philomena will discharge to her sister's home with new orders for [facility] RN/PT/OT (phone notification to [facility]) when medically cleared. She will follow up with her PCP and plan of care as directed. Her sister, Chantal will transport her home via private vehicle when ready. Patient/Family Education Needs: Review discharge instructions, discuss Ask Me Three. Services Needed at Discharge: Home Health Care Services ([facility]-new RN/PT/OT)
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
[2021-05-26 11:11] VITALS: BP 116/75; PULSE 63; RESP 18; TEMP 36.4; O2SAT 91
[2021-05-26] MEDS: Enoxaparin 40 MG/0.4 ML SYR SC (11:31)
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
[2021-05-26 12:33] VITALS: RESP 20; RESP 8
[2021-05-26 12:35] VITALS: RESP 5
--- NOTE | 2021-05-26 12:48 | PDOC.HHF2F ---
Home Health Certification Home Health Certification: 1. Encounter Date and Reason I certify that Philomena Adames was seen by Carri Jeronimo on 05/26/21 and that I had a [id number] encounter with this patient that meets the physician face to face encounter requirements. 2. Clinical Findings Supporting Skilled Need and Homebound Status I certify that home health services are medically necessary, include either intermittent [place] [facility] and/or physical/speech therapy, and that this patient is homebound in that absences from the home require considerable and taxing effort and are infrequent or of short duration, or are attributable to the need to receive medical care. [X] (a) Attached documentation from encounter provides clinical findings supporting skilled need and homebound status (including what assistance patient requires to leave the home). The encounter with the patient was in whole, or in part, for the following medical condition, which is the primary reason for home health care: Acute Brochitis,Hypoxia Residential: [place] would benefit from nursing to help with medication administration, adl, mouth care, education, etc Physical Therapy: Patient would benefit from PT/OT to help with strenghtening and balance for amublation, adls, etc Speech Therapy: Patient would benefirt from ST to help with understanding how to do proper oral care and food care. Homebound: Unable to leave home without assistance 3. Certification and Authentication I certify that I composed the above information based on my clinical judgement relating to this patient's medical condition and, if applicable, clinical findings communicated to me by the NPP or inpatient physician who performed the Home Health Referral. All further orders will be obtained through __Leti Franz (Community Based Physician - PCP)
[2021-05-26] MEDS: LORazepam 2 MG/1 ML Oral Concentrate 1 MG PO (12:54)
--- NOTE | 2021-05-26 14:04 | PT.INTREAT ---
Date of service: 05/26/21 Time of Service: 11:14 PT Notes Visit Reasons: Acute Brochitis,Hypoxia Inpatient Physical Therapy Treatment Note [facility] Date: 05/26/2021 PRECAUTIONS: Fall, Activity as tolerated SUBJECTIVE: Philomena reports that she is feeling tired today. She is pleasant and agreeable to participating in PT. She reports that she is walking and transferring as well as she does at home, that she is at her baseline level of function. OBJECTIVE: Issued and fit FWW for patient for at home use. Completed [employer] form and submitted to care management PAIN: No c/o pain BED MOBILITY/TRANSFERS Sit-stand: SBA Stand-sit: SBA GAIT Assistive Device: FWW Weight bearing: Full Assist: SBA - S Distance: 80' ASSESSMENT: Patient tolerated session without complaint. She was able to tolerate a progression in gait distance with FWW support and SBA-S. Per patient report, she is at her baseline level of function. PLAN: Patient to discharge to home later today, per provider. Recommend PT follow up. TREATMENT CODE/TIME: 17 minutes; [id number] (11:14)
--- NOTE | 2021-05-26 19:10 | INDS_ITS ---
Date of service: 05/26/21 PT Notes Visit Reasons: Acute Brochitis,Hypoxia Physical Therapy Inpatient Discharge Summary Date: 05/26/2021 Dates of Service: 05/22/2021 through 05/26/2021 This is a clinical summary of care provided for the duration of dates listed above. No charge was made in the completion of this documentation. Referring Doctor:? Maryse Jewell MD PT Orders: PT CONSULT: Limited ability Precautions: Fall.? Activity as tolerated.? Patient Profile/Admitting Diagnosis:? Patient is a 72-year-old female with development delay and tardive dyskinesia who presented to the ED on 05/22/2021 with complaints of increasing shortness of breath that worsens with activity.? Patient is diagnosed with acute respiratory distress, nausea and vomiting, and obstructive sleep apnea. PMHX: All Active Problems?(Updated 05/22/21 @ 09:49 by Hawa Bull DO) Acute respiratory distress (Acute) Hypoxia (Acute) Acute bronchitis (Acute) Nausea and vomiting (Acute) Poorly controlled type 2 diabetes mellitus (Acute) Pneumonia (Acute) Gastrostomy in place (Acute) Granuloma annulare (Acute) Hearing loss (Acute) Lactose intolerance (Acute) Obesity (Chronic) Hiatal hernia (Chronic) Neurogenic bladder (Acute) Venous insufficiency (Acute) Tremor (Acute) Obstructive sleep apnea (Chronic) C-PAP removed due to noncomplianceDiastolic heart failure (Chronic) Diabetes mellitus type 2, controlled (Acute) Skin rash (Acute) Chest pain, rule out acute myocardial infarction (Acute) Ileus (Acute) Impaired decision making (Chronic) Cognitive developmental delay (Chronic) On tube feeding diet (Chronic) Aspiration pneumonia (Acute) Dysphagia (Chronic) Atrial flutter (Acute) IDDM (insulin dependent diabetes mellitus) (Chronic) Schizophrenia (Chronic) Tardive dyskinesia (Chronic) Ambulatory dysfunction (Acute) DVT prophylaxis (Acute) Discharge planning issues (Acute) S/P percutaneous endoscopic gastrostomy (PEG) tube placement (Acute) Dysphagia causing pulmonary aspiration with swallowing (Chronic) Advance directive discussed with patient (Chronic) Chest pain (Acute) Atrial flutter (Chronic) Bipolar disorder (Chronic) Schizophrenia (Chronic) DVT prophylaxis (Chronic) Ambulatory dysfunction (Chronic) Developmental delay, borderline (Chronic) Migraine headache without aura (Chronic) Osteoporosis (Chronic) Depression with anxiety (Chronic) Chronic low back pain (Chronic) Osteoarthritis (Chronic) Hypothyroidism (Chronic) Arias's esophagus (Chronic) GERD (gastroesophageal reflux disease) (Chronic) Obstructive sleep apnea on CPAP (Chronic) Type 2 diabetes mellitus (Chronic) Hyperlipidemia (Chronic) Hypertension (Chronic) Urgency incontinence (Chronic 05/01/15) Tardive dyskinesia (Chronic 01/26/17) 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 H/O bilateral cataract extraction H/O tubal ligation H/O umbilical hernia repair History of hysterectomy with bilateral oophorectomy S/P cholecystectomy Social History/Home Situation:? Philomena lived with her sister Chantal who provides assistance with bathing. Sister states that she uses a folding chair, places chair inside the tub, and have Philomena step over and onto chair for bathing.?There is a ramp tp enter her sister's house.? Chantal states that Philomena has been able to walk from her bedroom to the bathroom about 20-30 feet using her 4 wheeled walker.? Yaquelin states that she has had several falls in the past year. ? Equipment Owned/DME: Hospital bed, 4WW, CPAP machine Subjective: NT. See most recent FIBERLINE SUPERVISOR notes. Objective: General Observation: NT. See most recent FIBERLINE SUPERVISOR notes. Mental Status: NT. See most recent FIBERLINE SUPERVISOR notes. Pain: NT. See most recent FIBERLINE SUPERVISOR notes. ROM: Right Upper Extremity: ? Shoulder Flexion WFL. Shoulder abduction WFL. Elbow flexion WFL. Wrist flexion WFL. Functional opening and closing of hand WFL. Left Upper Extremity:? Shoulder Flexion WFL. Shoulder abduction WFL. Elbow flexion WFL. Wrist flexion WFL. Functional opening and closing of hand WFL. Right Lower Extremity: Hip flexion lacks about 50% of available range of motion. Hip abduction lacks about 50% of available range of motion. Knee flexion WFL. Ankle dorsiflexion WFL. Ankle plantarflexion WFL. Left Lower Extremity: Hip flexion lacks about 50% of available range of motion. Hip abduction lacks about 50% of available range of motion. Knee flexion WFL. Ankle dorsiflexion WFL. Ankle plantarflexion WFL. Strength: Right Upper Extremity: Shoulder flexors 4-/5. Shoulder abductors 4-/5. Elbow flexors 4-/5. Elbow extensors 4-/5. Technology Officer strong. Left Upper Extremity: Shoulder flexors 4-/5. Shoulder abductors 4-/5. Elbow flexors 4-/5. Elbow extensors 4-/5. Technology Officer strong. Right Lower Extremity: Hip flexors 3-/5. Hip abductors 3-/5. Knee flexors 3-5. Knee extensors 3-/5. Ankle dorsiflexors 3-/5. Ankle plantarflexors 3-/5. Left Lower Extremity: Hip flexors 3-/5. Hip abductors 3-/5. Knee flexors 3-5. Knee extensors 3-/5. Ankle dorsiflexors 3-/5. Ankle plantarflexors ? 3-/5. Sensation: Intact as to pain and pressure to bilateral lower extremities. Bed Mobility/Transfers: Rolling supervision Supine to sit supervision Sit to supine standby assist Sit to stand standby assist Stand to sit standby assist Bed to chair standby assist Chair to bed standby assist Gait: Up to 80 feet with supervision using front-wheeled walker with full weight bearing, no oxygen supplementation needed. Balance: Static Sitting: Normal Dynamic Sitting: Normal Static Standing: Fair Dynamic Standing: Fair Assessment: Patient is a 72-year-old female with development delay and tardive dyskinesia who presented to the ED on 05/22/2021 with complaints of increasing shortness of breath that worsens with activity.? Patient is diagnosed with acute respiratory distress, nausea and vomiting, and obstructive sleep apnea.? Patient presents with clinical signs and symptoms consistent with current/admitting diagnoses that have resulted to mobility limitations, gait instability, generalized weakness, and lack of motor control as demonstrated by the following impairment level findings: 1.? Decreased strength to B LE major muscle groups 2.? Impaired balance 3.? Impaired activity tolerance 4.? Limitation of joint range of motion in the hips (chroninc) 5.? Dyskinesia 6. Significant dyspnea Impairments are contributing to the following functional limitations: 1.? Decreased bed mobility skills 2.? Increased dependence with transfers 3.? Inability to safely ambulate without assistive device 4.? Increase completion time for mobility ADL performance 5.? Increased fall risk 6.? Inability to negotiate steps alone safely Goals: Goals X1 week 1. Supine-Sit independent NOT MET 2. Sit-Supine independent NOT MET 3. Sit-Stand contact-guard assist NOT MET 4. Stand-Sit contact-guard assist NOT MET 5. Bed-Chair contact-guard assist NOT MET 6. Chair-Bed contact-guard assist NOT MET 7.? Contact-guard assist gait on level surface with use of least restrictive device for at least 300 feet without report of pain nor dyspnea NOT MET DISCHARGE RECOMMENDATIONS: [] ? Home with no services [] [] ? Home with services [specify] [] ? Home with outpatient PT [] [X] ? SNF for continued rehabilitation.? Patient will benefit from custodial facility placement for continued skilled physical therapy services in order to progress mobility level, strength, and balance in preparation for a safe discharge to home. [] ? [facility] [] [] ? SNF versus LTC based on ability to participate and progress [] TREATMENT CODE/TIME: [place] Thank you for the opportunity to participate in the care of this patient. Rox Brown PT, DPT, CLT [facility] [place], [place]
== END 2021-05-26 13:20 | disposition home health service (06) | DRG 291 ==
LOC: ER 09:49 → MS 11:21
PROVIDERS: Emergency Medicine; Family Medicine; Nurse Practitioner Family; Admitting Provider Internal Medicine; Emergency Provider Physician Assistant; PCP Family Medicine; Visit Provider Internal Medicine
DX: I11.0 Hypertensive heart disease with heart failure (principal); I50.33 Acute on chronic diastolic (congestive) heart failure; I48.92 Unspecified atrial flutter; J20.9 Acute bronchitis, unspecified; E11.65 Type 2 diabetes mellitus with hyperglycemia; R06.03 Acute respiratory distress; G47.33 Obstructive sleep apnea (adult) (pediatric); F81.9 Developmental disorder of scholastic skills, unspecified; R09.02 Hypoxemia; F20.9 Schizophrenia, unspecified; Z66 Do not resuscitate; G24.01 Drug induced subacute dyskinesia; R13.10 Dysphagia, unspecified; R11.2 Nausea with vomiting, unspecified; K21.9 Gastro-esophageal reflux disease without esophagitis; K44.9 Diaphragmatic hernia without obstruction or gangrene; E66.9 Obesity, unspecified; Z68.34 Body mass index [BMI] 34.0-34.9, adult; F31.9 Bipolar disorder, unspecified; G43.009 Migraine without aura, not intractable, without status migrainosus; M81.0 Age-related osteoporosis without current pathological fracture; F41.9 Anxiety disorder, unspecified; E03.9 Hypothyroidism, unspecified; K22.70 Barrett's esophagus without dysplasia; E78.5 Hyperlipidemia, unspecified; H90.3 Sensorineural hearing loss, bilateral
CPT/HCPCS: 36415; 36416; 51702; 71275; 74177; 80048; 80053; 82805; 82962; 83690; 84145; 87040; 87637; 93005; 93306; 96365; 96367; 96375; 97110; 97163; 97530; 97535; 99285; J1650; 81003; 83605; 83735; 83880; 84439; 84443; 84484; 85025; 85379; 85610; 85730; 93010; 94640; 94660; 99223; 99232; 99239; J0696; J1940; J2930; J3490; J7512; J7613; J7620

== ENCOUNTER 2021-07-18 12:41 | Outpatient (CLI) | payer MEDICARE, MEDICAID, SELFPAY ==
[2021-07-18 11:22] LABS: COMMENT (LAB VIEW ONLY) 71.41 mg/dL; Microalb ug/mg Crea 6.6 ug/mg Cr
[2021-07-18 11:25] LABS: Hemoglobin A1C 7.5 % (<5.7)
[2021-07-18 11:50] LABS: ALT 20 U/L (14-59); AST 17 U/L (15-37); Albumin 3.3 g/dL (3.4-5.0); Alkaline Phosphatase 123 U/L (46-116); Anion Gap 6.2 mmol/L (3-11); BUN 8 mg/dL (7-18); Bilirubin, Total 0.5 mg/dL (0.2-1.0); CO2 29.8 mmol/L (21.0-32.0); CREATININE 0.8 mg/dL (0.55-1.02); Calcium 8.7 mg/dL (8.5-10.1); Chloride 105 mmol/L (98-107); FREE T4 1.16 ng/dL (0.76-1.46); Glucose 150 mg/dL (74-106); Potassium 4.8 mmol/L (3.5-5.1); Sodium 141 mmol/L (136-145); TSH 3.44 uIU/mL (0.36-3.74); Total Protein 6.9 g/dL (6.4-8.2)
[2021-07-20 12:12] LABS: Fructosamine 269 mcmol/L (200 - 285)
== END 2021-07-18 12:42 | disposition home or self-care (01) ==
LOC: LBO 12:49
PROVIDERS: PCP Family Medicine; Visit Provider Internal Medicine Endocrinology, Diabetes & Metabolism
DX: E11.65 Type 2 diabetes mellitus with hyperglycemia (principal); E03.9 Hypothyroidism, unspecified
CPT/HCPCS: 36415; 80053; 82043; 82570; 82985; 83036; 84439; 84443

== ENCOUNTER 2021-12-21 04:41 | Inpatient (IN) | payer MEDICARE, MEDICAID, SELFPAY ==
[2021-12-21] VITALS (46 sets, daily range): BP systolic 101–157; BP diastolic 41–90; PULSE 72–190; RESP 2–35; TEMP 36.6–37.1; O2SAT 92–97
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
--- OUTSIDE RECORDS SUMMARY | 2021-12-21 04:49 | XMS_ITS | Encounter Summary ---
:1945 Author Organization [facility] Address [address] [place] [address] Care Team Providers Name Role Phone Edwardo Xavier MD Primary Care Provider Encounter Details Date Type Department Care Team Description 03/05/2015 Results Only [facility] Lennox Root MD Imaging Interventional Radiology [address] [facility], [address] [place] [address], Level 1 [place], [place] [id number] [place] [phone] (Wo rk) Social History Tobacco Use Types Packs/Day Years Used Date Never Assessed Sex Assigned at Date Recorded Not on file documented as of this encounter Plan of Treatment Pending Results Name Type Priority Associated Diagnoses Date/Ti me OUTSIDE IMAGES - CT CHEST Imaging 12:46 EST documented as of this encounter Visit Diagnoses Not on filedocumented in this encounter Care Teams Operational Test Mechanic Relationship Specialty Start Date End Date Edwardo Xavier MD PCP - General 05/03/[address] [place] [phone] documented as of this encounter
--- OUTSIDE RECORDS SUMMARY | 2021-12-21 04:49 | XMS_ITS | Encounter Summary ---
:1945 Author Organization [facility] Address [address] [place] [address] Care Team Providers Name Role Phone Edwardo Xavier MD Primary Care Provider Encounter Details Date Type Department Care Team Description 10/31/2012 Results Only [facility] Leti Franz MD Laboratory Services - [address] [place] [id number] [place] [address] [phone] Social History Tobacco Use Types Packs/Day Years Used Date Never Assessed Sex Assigned at Date Recorded Not on file documented as of this encounter Plan of Treatment Not on filedocumented as of this encounter Procedures Procedure Name Priority Date/Time Associated Diagnosis Comme nts PAP TEST- RESULT Routine 10/31/2012 0:00 EDT Resu lts for this ONLY procedure are i n the results section. documented in this encounter Results PAP TEST- RESULT ONLY (10/31/2012 0:00 EDT) Pathology Report: CYTOPATHOLOGY REPORT [facility] Reports generated via electronic interface contain cora ginal data; however they are lacking the format of the original re port. Caution should be taken when reading/interpreting unfo rmatted reports. Name: ? PHILOMENA NEGRON ? Accession #: ? [id number] : ? 1945 (Age: 67) ??F ?Collect Date: ? 10/13 Location: ? [facility] ? Receive Date : ? 11/01/2012 Provider: ?LETI FRANZ MD Copy to: ? Specimen/Source: ? Pap Test, Vagina/Cervix, ThinPrep Imaging System with manual evaluation Last Menstrual Period: ? 1995 Treatment History: ? Hysterectomy: supercervical ? SPECIMEN ADEQUACY ? Unsatisfactory for Evaluation, - insufficient numbers of squamous epith elial cells (less than 10% of expected cellularity) - sample preparation compromised by excessive inflamma tion GENERAL CATEGORIZATION ? Specimen processed and examined, but unsatisfac tory for evaluation of epithelial abnormality. ??Recommend repe at Pap test in 2-4 months as stated in ASCCP's 2012 Updated Consensus Guidelines. ? Document reviewed and electronically signed by: ? ROSALES Pedro(ASCP) ? Report Date: ??11/09/2012 15:11 End of Report Specimen Performing Organization Address City/State/ZIP Code Phon e Number [facility] [address] [place] [address] [facility] [address] [place] [address] documented in this encounter Visit Diagnoses Not on filedocumented in this encounter Care Teams Vine Fruit Farming Supervisor Relationship Specialty Start Date End Date Edwardo Xavier MD PCP - General 05/03/[address] [place] [phone] documented as of this encounter
--- OUTSIDE RECORDS SUMMARY | 2021-12-21 04:49 | XMS_ITS | Clinical Summary ---
:1945 Author Organization [facility] Address [address] [place] [id number] Care Team Providers Name Role Phone Edwardo Xavier MD Primary Care Provider Social History Tobacco Use Types Packs/Day Years Used Date Never Assessed Sex Assigned at Date Recorded Not on file Plan of Treatment Health Maintenance Due Date Last Done Comments Hepatitis C Screen 1945 COVID-19 Vaccine (1) 09/11/1952 Fall Risk Screening 09/11/2012 Care Teams Brake Holder Relationship Specialty Start Date End Date Edwardo Xavier MD PCP - General 05/03/[address] [place] [phone]
--- OUTSIDE RECORDS SUMMARY | 2021-12-21 04:49 | XMS_ITS | Encounter Summary ---
:1945 Author Organization [facility] Address [address] [place] [address] Care Team Providers Name Role Phone Edwardo Xavier MD Primary Care Provider Encounter Details Date Type Department Care Team Description 03/24/2000 Results Only [facility] - Daniel Mclaughlin Maple conversion BOTTOM LIQUOR ATTENDANT [address] [address] [place] [address] (Wo rk) Social History Tobacco Use Types Packs/Day Years Used Date Never Assessed Sex Assigned at Date Recorded Not on file documented as of this encounter Plan of Treatment Not on filedocumented as of this encounter Procedures Procedure Name Priority Date/Time Associated Diagnosis Comme nts CYTOPATHOLOGY Routine 03/24/2000 0:00 EST Results for this procedure are i n the results section . documented in this encounter Results CYTOPATHOLOGY (03/24/2000 0:00 EST) Pathology Report: CYTOPATHOLOGY REPORT [facility] Reports generated via electronic interface contain cora ginal data; however they are lacking the format of the original re port. Caution should be taken when reading/interpreting unfo rmatted reports. Name: ? PHILOMENA NEGRON ? Accession #: ? [id number] : ? 1945 (Age: 54) ??F ?Collect Date: ? 03/15 Location: ? [facility] ? Receive Date : ? 03/26/2000 Provider: ?DANIEL MCLAUGHLIN ANP Copy to: ? Specimen/Source: ?ThinPrep Pap Test, Endocer vix Last Menstrual Period: ? Menstrual/ Status: ? Menopausal ? SPECIMEN ADEQUACY ? Satisfactory for evaluation. GENERAL CATEGORIZATION ? Within Normal Limits ? Document reviewed and electronically signed by: ? ROSALES Toledo(ASCP) ? Report Date: ??03/29/2000 12:54 End of Report Specimen Performing Organization Address City/State/ZIP Code Phon e Number [facility] [address] [place] [address] SERVICES [facility] [address] [place] [address] documented in this encounter Visit Diagnoses Not on filedocumented in this encounter Care Teams Aerial Tram Operator Relationship Specialty Start Date End Date Edwardo Xavier MD PCP - General 05/03/[address] [place] [phone] documented as of this encounter
--- OUTSIDE RECORDS SUMMARY | 2021-12-21 04:49 | XMS_ITS | Encounter Summary ---
:1945 Author Organization [facility] Address [address] [place] [address] Care Team Providers Name Role Phone Edwardo Xavier MD Primary Care Provider Encounter Details Date Type Department Care Team Description 03/29/2003 Results Only [facility] - Toya Ribeiro, THERMOGRAPH OPERATOR conversion [address] [phone] (Wo rk) Social History Tobacco Use Types Packs/Day Years Used Date Never Assessed Sex Assigned at Date Recorded Not on file documented as of this encounter Plan of Treatment Not on filedocumented as of this encounter Procedures Procedure Name Priority Date/Time Associated Diagnosis Comme nts CYTOPATHOLOGY Routine 03/29/2003 0:00 EST Results for this procedure are i n the results section . documented in this encounter Results CYTOPATHOLOGY (03/29/2003 0:00 EST) Pathology Report: CYTOPATHOLOGY REPORT [facility] Reports generated via electronic interface contain cora ginal data; however they are lacking the format of the original re port. Caution should be taken when reading/interpreting unfo rmatted reports. Name: ? PHILOMENA NEGRON ? Accession #: ? [id number] : ? 1945 (Age: 57) ??F ?Collect Date: ? 03/15 Location: ? [facility] ? Receive Date : ? 04/02/2003 Provider: ?TOYA GONSALVES THERMOGRAPH OPERATOR Copy to: ? Specimen/Source: ?ThinPrep Pap Test, Vagina/ Cervix Last Menstrual Period: ? 1995 Treatment History: ? FERNY/BSO: 1995, partial cervix Other: ? HPVA - HPV testing requested if ASC-US on the current ThinPrep Pap test. ? SPECIMEN ADEQUACY ? Satisfactory for Evaluation - assessment of transformation zone component not appl icable ( e.g. atrophy, vaginal sample, hysterectomy) GENERAL CATEGORIZATION ? Negative for Intraepithelial Lesion or Malignan cy ? Document reviewed and electronically signed by: ? J LUIS Jackson(ASCP) ? Report Date: ??04/05/2003 12:40 End of Report Specimen Performing Organization Address City/State/ZIP Code Phon e Number [facility] [address] [place] [address] SERVICES [facility] [address] [place] [address] documented in this encounter Visit Diagnoses Not on filedocumented in this encounter Care Teams Immigration Law Specialist Relationship Specialty Start Date End Date Edwardo Xavier MD PCP - General 05/03/[address] [place] [phone] documented as of this encounter
--- OUTSIDE RECORDS SUMMARY | 2021-12-21 04:49 | XMS_ITS | Encounter Summary ---
:1945 Author Organization [facility] Address [address] [place] [address] Care Team Providers Name Role Phone Edwardo Xavier MD Primary Care Provider Encounter Details Date Type Department Care Team Description 10/26/2005 Results Only [facility] - Soren Love MD conversion [address] [place] [id number] [place] [address] [id number] [phone] Social History Tobacco Use Types Packs/Day Years Used Date Never Assessed Sex Assigned at Date Recorded Not on file documented as of this encounter Plan of Treatment Not on filedocumented as of this encounter Procedures Procedure Name Priority Date/Time Associated Diagnosis Comme nts SURGICAL PATHOLOGY Routine 10/26/2005 0:00 EDT Re sults for this procedure are i n the results section. documented in this encounter Results SURGICAL PATHOLOGY (10/26/2005 0:00 EDT) Pathology Report: SURGICAL PATHOLOGY REPORT [facility] Reports generated via electronic interface contain cora ginal data; LAB however they are lacking the format of the original re port. Caution should be taken when reading/interpreting unfo rmatted reports. Name: ? PHILOMENA NEGRON ? Accession #: ? [id number] ? : ? 1945 (Age: 60) ??F ? Collect Date: ? 10/26/2005 ? Location: ? [facility] ? Receive Date: ? 006 ? Provider: SOREN BELTRAN MD Copy to: PATRICIA KAUR BOOT LACE CUTTER MACHINE ? Final Pathologic Diagnosis: A. ?Duodenum, biopsy: 1. ?Duodenal mucosa with no specific path ologic features. B. ?Stomach, polyp, biopsy: 1. ?Fundic gland polyp. C. ?Stomach, gastric body, biopsy: 1. ?Fundic gland polyp. 2. ?Mild chronic gastritis. 3. ?Dominique sta in negative for Helicobacter pylori-like micro-organisms. D. ?Gastroesophageal junction, biopsy: 1. ?Columnar-lined mucosa with mild chron ic inflammation. 2. ?Negative for intestinal metaplasia. 3. ?Dominique sta in negative for Helicobacter pylori-like micro-organisms. Document reviewed and electronically signed by: DELIA BLANKENSHIP [facility] Report ??Date: 10/29/2005 16:24 By the signature above, the attending physician certif ies that he/she has personally conducted a gross and/or microscopic examin ation of the described specimens and rendered or confirmed the above diagnosi s. Specimen(s) Received: A. ?Duodenum bx B. ?Gastric polyp C. ?Bx gastric body D. ?Bx EJ junction Clinical History: ? Reflux; D. ? Arias's Gross Description: ? Received in [facility]'s fixative l abelled Zacarias and duodenum bx is a lino-pink, 0.2 x 0.2 x 0.2 cm soft tissue fragmen t. ??The specimen is entirely submitted as (A). Received in [facility] fixative labelled Zacarias and gastric polyp is a lino-pink, 0.2 x 0.2 x 0.2 cm soft tissue fragmen t. ??The specimen is entirely submitted as (B). Received in [facility]'s fixat alonso labelled Zacarias and bx gastric body are five lino-pink irregular soft tiss ue fragments ranging from 0.2 x 0.2 x 0.1 cm to 0.2 x 0.2 x 0.2 cm . The specimen is entirely submitted as (C1) and (C2). Received in [facility] fixative labelled Zacarias and bx GE junction ? Arias's is a lino-pink, 0. 3 x 0.2 x 0.2 cm soft tissue fragment. ??The specimen is entirely submitted as (D). ??(Meghan Jones)/[facility] End of Report Specimen Performing Organization Address City/State/ZIP Code Phon e Number [facility] [address] [place] [address] SERVICES [facility] [address] [place] [address] documented in this encounter Visit Diagnoses Not on filedocumented in this encounter Care Teams Mixing Operator Relationship Specialty Start Date End Date Edwardo Xavier MD PCP - General 05/03/[address] [place] [phone] documented as of this encounter
--- OUTSIDE RECORDS SUMMARY | 2021-12-21 04:49 | XMS_ITS | Encounter Summary ---
:1945 Author Organization [facility] Address [address] [place] [address] Care Team Providers Name Role Phone Edwardo Xavier MD Primary Care Provider Encounter Details Date Type Department Care Team Description 11/24/1999 Results Only [facility] - Afsaneh warner, Oracio Jackson MD conversion [address] [place] [phone] (Wo rk) Social History Tobacco Use Types Packs/Day Years Used Date Never Assessed Sex Assigned at Date Recorded Not on file documented as of this encounter Plan of Treatment Not on filedocumented as of this encounter Procedures Procedure Name Priority Date/Time Associated Diagnosis Comme nts CYTOPATHOLOGY Routine 11/24/1999 0:00 EDT Results for this procedure are i n the results section . documented in this encounter Results CYTOPATHOLOGY (11/24/1999 0:00 EDT) Pathology Report: CYTOPATHOLOGY REPORT [facility] Reports generated via electronic interface contain cora ginal data; however they are lacking the format of the original re port. Caution should be taken when reading/interpreting unfo rmatted reports. Name: ? PHILOMENA NEGRON ? Accession #: ? [id number] : ? 1945 (Age: 54) ??F ?Collect Date: ? 11/13 Location: ? [facility] ? Receive Date : ? 11/25/1999 Provider: ? ORACIO JULIEN MD Copy to: ?PATRICIA KAUR RESEARCH AND EVALUATION ANALYST ? CYTOLOGIC DIAGNOSIS: ? Urine, voided: - No malignant cells identified. ??See comment. ? COMMENT: ? Sparse reactive appea ring transitional cells are present in a background of abundant squamous contamination. ??(Dr. Cazares)/[facility] [place] Document reviewed and electronically signed by: ? Camille Cazares MD PhD Report Date: ??11/25/1999 14:50 By the signature above, the attending physician certif ies that he/she has personally conducted a gross and/or microscopic examin ation of the described specimens and rendered or confirmed the above diagnosi s. Specimen Type: ? Urine, Voided Clinical History: ? Neurogenic bladder. ? Gross Description: ? 1 tube of Cytolyt was received and processed. ? End of Report Specimen Performing Organization Address City/State/ZIP Code Phon e Number [facility] [address] [place] [address] SERVICES [facility] [address] [place] [address] documented in this encounter Visit Diagnoses Not on filedocumented in this encounter Care Teams Regroover Relationship Specialty Start Date End Date Edwardo Xavier MD PCP - General 05/03/[address] [place] [phone] documented as of this encounter
--- OUTSIDE RECORDS SUMMARY | 2021-12-21 04:49 | XMS_ITS | Encounter Summary ---
:1945 Author Organization [facility] Address [address] [place] [address] Care Team Providers Name Role Phone Unavailable Primary Care Provider Unavailable Encounter Details Date Type Department Care Team Description 05/01/2009 Orders Only [facility] Soren Amaral MD [facility] [address] [place] [address] [place] [address] [phone] Social History Tobacco Use Types Packs/Day Years Used Date Never Assessed Sex Assigned at Date Recorded Not on file documented as of this encounter Plan of Treatment Not on filedocumented as of this encounter Procedures Procedure Name Priority Date/Time Associated Diagnosis Comme [facility] SURGICAL PATHOLOGY Routine 05/01/2009 0:00 EST Re sults for this procedure are i n the results section. documented in this encounter Results SURGICAL PATHOLOGY (05/01/2009 0:00 EST) Pathology Report: SURGICAL PATHOLOGY REPORT ? [facility] Reports generated via Pogojo interface contain original data; ? LAB however they are lacking the format of the original report. ? Caution should be taken when reading/interpreting unformatted reports. ? Name: ? MIGDALIA, PHILOMENA M ? Accession #: ? [id number] ? : ? 1945 (Age: 63) ??F ? Collec t Date: ? 05/01/2009 ? Location: ? [facility] ? R eceive Date: ? 05/01/2009 ? Provider: SOREN WALKO MD ? Copy to: JENNA BERRIAN MD ? Final Pathologic Diagnosis: ? A. ?Colon, sigm oid, polypectomy: ? 1. 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 ? 2. ? Minute fragments of colonic mucosa. ? B. ?Rectum, bio psies: ? 1. ?Colorectal mucosa with no active inflammation and no specific ? histopathologic diagnosis. ? Document reviewed and electr onically signed by: ? Parviz Cesar MD ? Report ??Date: 05/03/2009 16 :00 ? By the signature above, the attending physician certifies that he/she has ? personally conducted a gross and/or microscopic examination of the described ? specimens and rendered or co nfirmed the above diagnosis. ? Specimen(s) Received: ? A. ?Sigmoid xavier yp ? B. ? Bx rectum ? Clinical History: ? Anorectal pain, bleed ing; B. ? proctitis ? Gross Description: ? Received in [facility]' s fixative labelled Migdalia, Philomena and sigmoid ? polyp are two pink-lino irre gular soft tissues, 0.2 x 0.1 x 0.1 cm and 0.3 x 0.3 x 0.1 cm. ??The specimen is submitted in toto as (A). ? Received in [facility]'s fixat alonso labelled Philomena Adames and biopsy rectum, ? proctitis are two pink-lino irregular soft tissues, each 0.2 x 0.2 x 0.2 cm. ? The specimen is submitted in toto as (B). ??(Sosa Joseph)/karang ? End of Report ? Specimen Performing Organization Address City/State/ZIP Code Phon e Number [facility] [address] [place] [address] SERVICES [facility] [address] [place] [address] documented in this encounter Visit Diagnoses Not on filedocumented in this encounter
--- OUTSIDE RECORDS SUMMARY | 2021-12-21 04:49 | XMS_ITS | Encounter Summary ---
:1945 Author Organization [facility] Address [address] [place] [address] Care Team Providers Name Role Phone Edwardo Xavier MD Primary Care Provider Encounter Details Date Type Department Care Team Description 03/28/2003 Results Only [facility] - Toya Ribeiro, WINDOW SASH INSTALLER conversion [address] [phone] (Wo rk) Social History Tobacco Use Types Packs/Day Years Used Date Never Assessed Sex Assigned at Date Recorded Not on file documented as of this encounter Plan of Treatment Not on filedocumented as of this encounter Procedures Procedure Name Priority Date/Time Associated Diagnosis Comme nts CYTOPATHOLOGY Routine 03/28/2003 0:00 EST Results for this procedure are i n the results section . documented in this encounter Results CYTOPATHOLOGY (03/28/2003 0:00 EST) Pathology Report: CYTOPATHOLOGY REPORT [facility] Reports generated via electronic interface contain cora ginal data; however they are lacking the format of the original re port. Caution should be taken when reading/interpreting unfo rmatted reports. Name: ? PHILOMENA NEGRON ? Accession #: ? [id number] : ? 1945 (Age: 57) ??F ?Collect Date: ? 03/15 Location: ? [facility] ? Receive Date : ? 03/30/2003 Provider: ? TOYA GONSALVES WINDOW SASH INSTALLER Copy to: ? CYTOLOGIC DIAGNOSIS: ? Urine, voided, cytologic evaluation: - No malignant cells identified. Document reviewed and electronically signed by: ? Jeremy Hernandez MD Report Date: ??03/30/2003 17:29 By the signature above, the attending physician certif ies that he/she has personally conducted a gross and/or microscopic examin ation of the described specimens and rendered or confirmed the above diagnosi s. Specimen Type: ? Urine, Voided Clinical History: ? Dysuria, urinary frequency. ??Clinical di agnosis codes; 788.1, 788.41. ? Gross Description: ? 1 tube of cytolyt was received and processed by concentration technique. ? End of Report Specimen Performing Organization Address City/State/ZIP Code Phon e Number [facility] [address] [place] [address] SERVICES [facility] [address] [place] [address] documented in this encounter Visit Diagnoses Not on filedocumented in this encounter Care Teams Saturation Equipment Operator Relationship Specialty Start Date End Date Edwardo Xavier MD PCP - General 05/03/[address] [place] [phone] documented as of this encounter
--- OUTSIDE RECORDS SUMMARY | 2021-12-21 04:49 | XMS_ITS | Encounter Summary ---
:1945 Author Organization [facility] Address [address] [place] [address] Care Team Providers Name Role Phone Edwardo Xavier MD Primary Care Provider Encounter Details Date Type Department Care Team Description 06/03/2006 Results Only [facility] - Adri Castanon PA conversion [id number] [place] [address] [phone] (Wo rk) Social History Tobacco Use Types Packs/Day Years Used Date Never Assessed Sex Assigned at Date Recorded Not on file documented as of this encounter Plan of Treatment Not on filedocumented as of this encounter Procedures Procedure Name Priority Date/Time Associated Diagnosis Comme nts CYTOPATHOLOGY Routine 06/03/2006 0:00 EDT Results for this procedure are i n the results section . documented in this encounter Results CYTOPATHOLOGY (06/03/2006 0:00 EDT) Pathology Report: CYTOPATHOLOGY REPORT [facility] Reports generated via electronic interface contain cora ginal data; however they are lacking the format of the original re port. Caution should be taken when reading/interpreting unfo rmatted reports. Name: ? PHILOMENA NEGRON ? Accession #: ? [id number] : ? 1945 (Age: 60) ??F ?Collect Date: ? 05/14 Location: ? [facility] ? Receive Date : ? 06/07/2006 Provider: ?ADRI LR Copy to: ? Specimen/Source: ? ThinPrep Pap Test, Vagina, processed on [employer] ThinPrep Imaging System, with manual evaluation Last Menstrual Period: ? Treatment History: ? Hysterectomy: Uterine Other: ? HPVA - HPV testing requested if ASC-US on the current ThinPrep Pap test. ? SPECIMEN ADEQUACY ? Satisfactory for Evaluation - assessment of transformation zone component not appl icable ( e.g. atrophy, vaginal sample, hysterectomy) - scant squamous epithelial component secondary to exc essive inflammation GENERAL CATEGORIZATION ? Negative for Intraepithelial Lesion or Malignan cy ? Document reviewed and electronically signed by: ? ROSALES Osorio(ASCP) ? Report Date: ??06/10/2006 08:44 End of Report Specimen Performing Organization Address City/State/ZIP Code Phon e Number [facility] [address] [place] [address] SERVICES [facility] [address] [place] [address] documented in this encounter Visit Diagnoses Not on filedocumented in this encounter Care Teams Tactical Intelligence Officer Relationship Specialty Start Date End Date Edwardo Xavier MD PCP - General 05/03/[address] [place] [phone] documented as of this encounter
--- OUTSIDE RECORDS SUMMARY | 2021-12-21 04:49 | XMS_ITS | Encounter Summary ---
:1945 Author Organization [facility] Address [address] [place] [address] Care Team Providers Name Role Phone Edwardo Xavier MD Primary Care Provider Encounter Details Date Type Department Care Team Description 10/15/2000 Results Only [facility] - Toya Ribeiro, ULTRA SOUND TECHNICIAN conversion [address] [phone] (Wo rk) Social History Tobacco Use Types Packs/Day Years Used Date Never Assessed Sex Assigned at Date Recorded Not on file documented as of this encounter Plan of Treatment Not on filedocumented as of this encounter Procedures Procedure Name Priority Date/Time Associated Diagnosis Comme nts CYTOPATHOLOGY Routine 10/15/2000 0:00 EDT Results for this procedure are i n the results section . documented in this encounter Results CYTOPATHOLOGY (10/15/2000 0:00 EDT) Pathology Report: CYTOPATHOLOGY REPORT [facility] Reports generated via electronic interface contain cora ginal data; however they are lacking the format of the original re port. Caution should be taken when reading/interpreting unfo rmatted reports. Name: ? PHILOMENA NEGRON ? Accession #: ? [id number] : ? 1945 (Age: 55) ??F ?Collect Date: ? 05/2000 Location: ? [facility] ? Receive Date : ? 10/21/2000 Provider: ?TOYA GONSALVES ULTRA SOUND TECHNICIAN Copy to: ? Specimen/Source: ?Conventional Pap Test, Vag sandra/Cervix Last Menstrual Period: ? Hormonal/Contraceptive Status: ? Premarin Treatment History: ? FERNY/BSO Other: ? Additional clinical information: DUB ? SPECIMEN ADEQUACY ? Satisfactory for evaluation. GENERAL CATEGORIZATION ? Within Normal Limits ? Document reviewed and electronically signed by: ? ROSALES Bryson(ASCP) ? Report Date: ??10/22/2000 14:25 End of Report Specimen Performing Organization Address City/State/ZIP Code Phon e Number [facility] [address] [place] [address] SERVICES [facility] [address] [place] [address] documented in this encounter Visit Diagnoses Not on filedocumented in this encounter Care Teams Custom Harvester Relationship Specialty Start Date End Date Edwardo Xavier MD PCP - General 05/03/[address] [place] [phone] documented as of this encounter
--- OUTSIDE RECORDS SUMMARY | 2021-12-21 04:49 | XMS_ITS ---
:1945 Author Care Team Providers Name Role Phone DR. ANTWAN MUNROE Primary Care Provider [phone] DR. ANTWAN MUNROE Referring Provider [phone] Allergies Code Code System Name Reaction Severity Status Onset 2670 RxNorm Codeine ? ? Active ? 01718 RxNorm Lisinopril ? ? Active ? Penicillins ? ? Active ? 09435 RxNorm Tetrabenazine ? ? Active ? Wellbutrin ? ? Active ? Medications Name Status Start Date Stop Date ? ? aspirin 81 mg tablet,delayed release Completed ? 05/27/2020 Take 1 tablet every day by oral route. Attends Disposable Underpads Active ? Not available Clairagltracey Chamberlain U-100 Insulin 100 unit/mL (3 mL) subcutaneous A ctive ? Not available Inject 30 units twice a day by subcutaneous route. clonazepam 0.5 mg tablet Active ? Not corinne ilable Take 2.5 tablets every day by oral route at bedtime. cyclobenzaprine 5 mg tablet Active ? Not available Take 1 tablet every day by oral route at bedtime. Dexilant 30 mg capsule, delayed release Active ? Not available Take 1 capsule twice a day by oral route. escitalopram 20 mg tablet Active ? Not av ailable Take 1 tablet every day by oral route. FreeStyle Lancets Active ? Not available Test blood glucose TID.E11.9. FreeStyle Chrystal 14 Day [place] Active ? No t available FreeStyle Chrystal 14 Day Sensor kit Active ? Not available Use as directed. FreeStyle Lite Meter kit Active ? Not corinne ilable Test blood glucose TID.Dx: E11.9 FreeStyle Lite Strips Active ? Not availa ble Test blood glucose TID.Dx: E11.9. levothyroxine 112 mcg tablet Active ? Not available Take 1 tablet every day by oral route. magnesium 400 mg (as magnesium oxide) capsule Completed ? 05/27/2020 Take 1 capsule every day by oral route. multivitamin oral liquid Completed ? 021 Take 15 mL every day by oral route. Novolog Flexpen U-100 Insulin aspart 100 unit/mL (3 mL) subcutan eous Active ? Not available Before meals take 6 units for 100 to 14 0, 8 units for 141-180 , 10 u for 181- 220, 12 units for 221-360 14 units for 261-300 , 16 u, for 301-350 , and 18 u. for Over 350 also take 4 units with cu p of ice cream in evening. To Maximum 52 units daily nystatin 100,000 unit/gram topical powder Completed ? 05/27/2020 APPLY TO THE AFFECTED AREA(S) BY TOPICAL ROUTE 2 TIMES PER DAY Pen Needle 31 gauge x 05/28 Active ? Not available Inject insulin SC 2-3 times daily. propranolol 20 mg tablet Active ? Not corinne ilable Take 1 tablet 3 times a day by oral route. Tessalon Perles 100 mg capsule Completed ? 0 05/27/2020 Take 1 capsule 3 times a day by oral route as needed. Thick-It oral powder Active ? Not availab le Mix with all liquids to honey consistency. Ventolin HFA 90 mcg/actuation aerosol inhaler Active ? Not available Inhale 2 puffs every 6 hours by inhalation route as needed. Zocor 20 mg tablet Completed ? 05/27/2020 Take 1 tablet every day by oral route at bedtime. Problems Name Status Onset Date Source ? Adenomatous Polyp of Colon Active ? ? Hypothyroidism Active ? ? Type 2 Diabetes Mellitus Active ? ? Hyperlipidemia Active ? ? Obesity Active ? ? Schizophrenia Active ? ? Bipolar I Disorder Active ? ? Obstructive Sleep Apnea Syndrome Active ? ? Tardive Dyskinesia Active ? ? Hearing Loss Active ? ? Essential Hypertension Active ? ? Diastolic Heart Failure Active ? ? Peripheral Venous Insufficiency Active ? ? Gastroesophageal Reflux Disease Active ? ? Arias's Esophagus Active ? ? Hiatal Hernia Active ? ? Neurogenic Bladder Active ? ? Postartificial Menopausal Syndrome Active ? ? Granuloma Annulare Active ? ? Osteoarthritis Active ? ? Tremor Active ? ? Dysphasia Active ? ? Dyspnea Active ? ? Urinary Incontinence Active ? ? Postmenopausal State Active ? ? Adult Health Examination Active ? ? Screening Mammography Active ? ? Intolerance to Lactose Active ? ? Procedures None recorded. Results Lab Results Date Name Specimen Result Interpretation Description Value Range Status Address ? 07/09/2020 Glucose, Blood ? Blood 354 ? ? [facility] - Fingerstick, capillary Glucose: Specialty: 103 Blood mg/dl [facility] 05/27/2020 Glucose, Blood ? Blood 296 ? ? Rhc - Fingerstick, capillary Glucose: Specialty: 103 Blood mg/dl [facility] Past Encounters 07/09/2020 Type II Diabetes Mellitus Uncontrolled; Acquired Hypothyroidism; Hyperlipidemia; Polyneuropathy Due to Type 2 Diabetes Mellitus; Depressive Disorder Pancho Gandara MD-FACE: [address] [place] [address], Ph. Social History Tobacco Smoking Status Never Smoker Vaccine List Vaccine Type COVID-19 (SARS-COV-2) vaccine, unspecifi ed 05/20/2020 Tdap 04/21/2021 Plan of Care Patient Goals A1C 8 TO 8.5% Blood Sugar more in 100 to 200 AVOID MODERATE or SEVERE HYPOGLYCMIIA Patient Instructions HEALTHY EATING HABITS ---Limited Carbohydrate Three Similar Fe ediing a) Limit Bread, Noodles, Pasta, Potato, Rice and other high carbohydrate foods. b) Infrequent eat ice cream, cake, pies, other high carbo dessert items ----More Green Vegetables ----Fruit, But Limit amounts (one apple, one peach, one pear, 1/2 banana, 12 grapes) EXERCISE Move, Lift, Stretch -------MOVE (walk, ) Chair Exercises -------LIFT: Upper body (arms) - 1 #, lo wer body (leg) limited squats, stairs, step ------STRETCH: Stretch: Gently, all area s from neck to toes. ORAL MEDICATIONS ------ None at times GLP-1 AGONIST Injection FUTURE USE? -----Victoza mg inject once daily pre br eakast ---- Bydureon Trulicity Ozempic mg injec t once weekly INSULIN THERAPY: Basaglar 30 units in AM and 30 units at bedtime daily Novolog pre meals Novolog Scale MEALS Before meals take 6 units for 100 to 140 , 8 units for 141-180 , 10 u for 181- 220, 12 units for 221-360 14 units for 261-300 , 16 u, for 301-350 , and 18 u. for Over 350 also take 4 units with cup of ice cream in evening. To Maximum 52 units daily Novolog with Ice cream Cup just give 4 units in evening BG TEST PLAN Record Blood Sugar daily before meals an d bedtime; Record test paired BG pre/ 2hour meals, also at 3 AM every four (4) adays Keep records of what she is eating every four days. Reminders Provider Appointments None recorded. ? ? Lab None recorded. ? ? Referral None recorded. ? ? Procedures None recorded. ? ? Surgeries None recorded. ? ? Imaging None recorded. ? ? Vitals 07/09/2020 12:30PM ENDOCRINOLOGY FOLLOW UP 30 Height Weight BMI Blood Pressure 152.4 cm 88.22 kg 38 kg/m2 126/66 mm[Hg] 05/27/2020 03:30PM ENDOCRINOLOGY NEW PATIENT 60 Height Weight BMI Blood Pressure 152.4 cm 87.36 kg 37.6 kg/m2 128/78 mm[Hg]
--- OUTSIDE RECORDS SUMMARY | 2021-12-21 04:49 | XMS_ITS | Encounter Summary ---
:1945 Author Organization [facility] Address [address] [place] [address] Care Team Providers Name Role Phone Edwardo Xavier MD Primary Care Provider Encounter Details Date Type Department Care Team Description 04/10/2002 Results Only [facility] - Yin Macdonald MD conversion [address] [place] [address] [place], [place] [id number] [phone] Social History Tobacco Use Types Packs/Day Years Used Date Never Assessed Sex Assigned at Date Recorded Not on file documented as of this encounter Plan of Treatment Not on filedocumented as of this encounter Procedures Procedure Name Priority Date/Time Associated Diagnosis Comme nts CYTOPATHOLOGY Routine 04/10/2002 0:00 EST Results for this procedure are i n the results section . documented in this encounter Results CYTOPATHOLOGY (04/10/2002 0:00 EST) Pathology Report: CYTOPATHOLOGY REPORT [facility] Reports generated via electronic interface contain cora ginal data; however they are lacking the format of the original re port. Caution should be taken when reading/interpreting unfo rmatted reports. Name: ? PHILOMENA NEGRON ? Accession #: ? [id number] : ? 1945 (Age: 56) ??F ?Collect Date: ? 03/16 Location: ? [facility] ? Receive Date : ? 04/12/2002 Provider: ?YIN COBB MD Copy to: ? Specimen/Source: ?ThinPrep Pap Test, Cervix/ Endocervix Last Menstrual Period: ? Menstrual/ Status: ? Post Menopausal Other: ? Additional clinical information: G5, P5 ? SPECIMEN ADEQUACY ? Satisfactory for Evaluation - transformation zone component present GENERAL CATEGORIZATION ? Negative for Intraepithelial Lesion or Malignan cy ? Document reviewed and electronically signed by: ? ROSALES Foster(ASCP) ? Report Date: ??04/13/2002 11:06 End of Report Specimen Performing Organization Address City/State/ZIP Code Phon e Number [facility] [address] [place] [address] SERVICES [facility] [address] [place] [address] documented in this encounter Visit Diagnoses Not on filedocumented in this encounter Care Teams Fish Icer Relationship Specialty Start Date End Date Edwardo Xavier MD PCP - General 05/03/[address] [place] [phone] documented as of this encounter
--- OUTSIDE RECORDS SUMMARY | 2021-12-21 04:49 | XMS_ITS | Encounter Summary ---
:1945 Author Organization [facility] Address [address] [place] [address] Care Team Providers Name Role Phone Edwardo Xavier MD Primary Care Provider Encounter Details Date Type Department Care Team Description 11/21/2019 Lab Requisition [facility] Outr Resulting Lab, Pathology & Laboratory Provider [facility] [address] [place], [place] [id number] Social History Tobacco Use Types Packs/Day Years Used Date Never Assessed Sex Assigned at Date Recorded Not on file documented as of this encounter Plan of Treatment Not on filedocumented as of this encounter Procedures Procedure Name Priority Date/Time Associated Diagnosis Comme nts COVID-19 TEST [facility] Today 11/21/2019 15:15 LAB PCR EDT COVID-19 TESTING Routine 11/21/2019 15:15 Results for this EDT procedure are i n the results section. documented in this encounter Results COVID-19 TEST [facility] LAB PCR (11/21/2019 15:15 EDT) Specimen Swab - Entire nasopharynx (body structur e) Performing Organization Address City/State/ZIP Code Phon e Number [facility] [address] [place] [address] SERVICES COVID-19 TESTING (11/21/2019 15:15 EDT) COVID-19 rt-PCR Negative Negative [facility] Result Comment: [facility] This test has not been FDA c leared or approved. This test has been authorized by FDA under an EUA for use by authorized laboratories. This test has been authorized only for detection of nucleic acid fro SERVICES m 2018-, not for any oth er viruses or pathogens. This test is only authorized for the duration of the declaration that circumstances exist justifying the authorization of emergency use of in vitro d iagnostic tests for detectio n and/or diagnosis of 2019-nCoV under section 564(b)(1) of Act, 21 U.S.C ?? 360bbb-3(b) (1), unless the authorization is terminated or revoked sooner. Negative results do not prec lude 2019-nCoV infection and should not be used as the sole basis for treatment or other patient management decisions. Negative results must be combined with clinical observa tions, patient history, and epidemiological informatio n. Performed on the Directr Fusion instrument Performing Lab [place] [facility] Lab [facility] SERVICES Specimen Swab Performing Organization Address City/State/ZIP Code Phon e Number [facility] [address] [place] [address] SERVICES documented in this encounter Visit Diagnoses Not on filedocumented in this encounter Care Teams Administrative Dietitian Relationship Specialty Start Date End Date Edwardo Xavier MD PCP - General 05/03/[address] [place] [phone] documented as of this encounter
--- NOTE | 2021-12-21 05:00 | RT.EKG_ITS ---
APPROVED REPORT Exam: Resting ECG Reason for Exam: trouble breathing Patient Location: E HR:81 bpm ECG Measurements Heart Rate 81 AXIS IN 162 P 30 QRSd 99 QRS 5 QT 397 T -2 QTc 462 Conclusion Sinus rhythm...normal P axis, V-rate 60- 99 Inferior infarct, old...Q >35mS, II III aVF Abnrm T, consider ischemia, anterolateral lds...T <-0.20mV, I aVL V2-V6. Sinus. No STEMI. No significant change from previous. I have reviewed and interpreted ECG and agree with software generated interpretation.
--- NOTE | 2021-12-21 05:15 | DI.RAD_ITS ---
Exam(s) XR CHEST 2V PA LATERAL EXAM: XR CHEST 2V PA LATERAL CLINICAL HISTORY: shortness of breath, wheezing, r/o acute disease TECHNIQUE: COMPARISON: CR,XR XR PORTABLE CHEST AP from 08/03/2020 FINDINGS: The heart is not enlarged. No gross pleural effusion. Pulmonary fibrotic changes are again noted as seen on prior CT and radiographic examinations. No evidence of acute consolidation. IMPRESSION: No evidence of acute process. RADIATION DOSE DELIVERED: Total DLP
[2021-12-21 05:23] LABS: Source Nasal/Nares
[2021-12-21 05:25] LABS: Abs Immature Grans 0.01 10^3/uL (0.0-0.06); Absolute Basophil Count 0.08 10^3/uL (0.0-0.2); Absolute Eosinophil Count 0.32 10^3/uL (0.0-0.7); Absolute Lymphocyte Count 3.78 10^3/uL (1.2-3.4); Absolute Monocyte Count 0.62 10^3/uL (0.1-0.8); Absolute Neutrophil Count 2.71 10^3/uL (1.2-6.7); Basophils % 1.1; Eosinophils % 4.3; HCT 43.5 % (36.0-46.0); HGB 14.4 g/dL (11.2-15.7); Immature Grans % 0.1; Lymphocytes % 50.3; MCH 30.1 pg (27.0-33.0); MCHC 33.1 % (32.0-36.0); MCV 91 fL (80-95); Monocytes % 8.2; RBC 4.78 10^6/uL (3.93-5.22); RDW 12.2 % (11.7-14.6); WBC 7.52 10^3/uL (4.4-10.8)
[2021-12-21] MEDS: Normal Saline 250 ML 500 ML IV (05:27)
[2021-12-21] MEDS: Albuterol/Ipratropium 3 ML UPD VIAL UPD ×4 (05:27→20:18)
[2021-12-21] MEDS: methylPREDNISolone SUCC 125 MG VIAL IVP (05:27)
[2021-12-21 05:43] LABS: ALT 17 U/L (14-59); AST 18 U/L (15-37); Albumin 3.2 g/dL (3.4-5.0); Alkaline Phosphatase 126 U/L (46-116); Anion Gap 5.7 mmol/L (3-11); BUN 12 mg/dL (7-18); Bilirubin, Total 0.4 mg/dL (0.2-1.0); CO2 31.3 mmol/L (21.0-32.0); CREATININE 0.9 mg/dL (0.55-1.02); Calcium 8.6 mg/dL (8.5-10.1); Chloride 103 mmol/L (98-107); Estimated GFR 67.08 (mL/min/1.73m2); Glucose 183 mg/dL (74-106); Magnesium 1.9 mg/dL (1.8-2.4); Sodium 140 mmol/L (136-145); Total Protein 7.4 g/dL (6.4-8.2); Troponin I < 50 ng/L (<or=60)
[2021-12-21 05:54] LABS: COVID-19 PCR Negative (Negative)
[2021-12-21] MEDS: Albuterol 2.5 MG/3 ML INH SOLN VIAL 5 MG UPD ×2 (06:28→08:02)
--- NOTE | 2021-12-21 07:20 | DI.VRAD_ITS ---
PROCEDURE INFORMATION: Exam: XR Chest Exam date and time: 12/21/2021 6:13 AM Age: 76 years old Clinical indication: Shortness of breath TECHNIQUE: Imaging protocol: Radiologic exam of the chest. Views: 2 views. COMPARISON: CT CHEST PE ABD PELVIS W 05/22/2021 8:47 AM FINDINGS: Lungs: Low lung volumes with mild interstitial prominence asymmetric to the left. No consolidation. Pleural spaces: No pleural effusion. No pneumothorax. Heart/Mediastinum: No cardiomegaly. Bones/joints: Unremarkable. IMPRESSION: Question mild interstitial pneumonitis/edema asymmetric to the left Dictated and Authenticated by: James Sim MD. Ordering:JESSA Shaikh MD
--- NOTE | 2021-12-21 07:49 | NUR.NOTE ---
Nursing Note:Pt finished Neb, SPO2 at 98%. O2 taken down to 2L SPO2 at 96%,O2 taken down to 0L SPO2 at 88% and Pt is working for air slightly, O2 placed back up to 1L SPO2 at 96%, taken back down to 0% and SPO2 down to 88% again. Provider aware, another neb ordered.
[2021-12-21] MEDS: levoFLOXacin 500 MG, levoFLOXacin 250 MG 750 MG PO (07:59)
--- NOTE | 2021-12-21 09:05 | RESPIRATORY ---
RT was called to ED to assess patient with left sided pneumonia. Pt instructed on use of acapella and incentive spirometer. Pt was able to produce vibrations on acapella very well on her own. Pt benefits form instruction with each breath on the IS. CPT was also initiated by RT, pt was able to tolerate this for <2 minutes. On room air, patient was saturating between 80-94%, depending on if she was grunting or relaxed.
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
[2021-12-21] MEDS: Enoxaparin 40 MG/0.4 ML SYR SC (10:59)
[2021-12-21] MEDS: metroNIDAZOLE 500 MG/100 ML BAG 100 MG IVPB ×2 (12:34→20:17)
[2021-12-21] MEDS: Insulin Aspart 300 UNITS/3 ML PEN SC ×3 (12:35→22:26)
[2021-12-21] MEDS: Normal Saline Flush 10 ML SYR (12:35)
[2021-12-21] MEDS: Propranolol 20 MG TAB PO ×2 (13:21→20:17)
[2021-12-21] MEDS: Magnesium Oxide 400 MG TAB PO (20:17)
[2021-12-21] MEDS: Insulin Glargine 300 UNITS/3 ML PEN 20 UNITS SC (20:17)
[2021-12-21] MEDS: Nystatin POWDER 15 GM JAR TP (20:17)
[2021-12-21] MEDS: Ziprasidone 20 MG CAP PO (21:57)
[2021-12-21] MEDS: clonazePAM 1 MG TAB PO (21:58)
[2021-12-21] MEDS: Prazosin 1 MG CAP 2 MG PO (21:58)
[2021-12-21] MEDS: Cyclobenzaprine 10 MG TAB 5 MG PO (21:58)
[2021-12-21] MEDS: Simvastatin 20 MG TAB PO (22:06)
[2021-12-22] MEDS: metroNIDAZOLE 500 MG/100 ML BAG 100 MG IVPB ×2 (05:35→11:45)
[2021-12-22] MEDS: Levothyroxine 112 MCG TAB PO (06:33)
[2021-12-22 07:41] VITALS: PULSE 82; RESP 1; RESP 24; RESP 4; O2SAT 96
[2021-12-22] MEDS: Albuterol/Ipratropium 3 ML UPD VIAL UPD (07:41)
[2021-12-22 07:53] VITALS: PULSE 82; RESP 1; RESP 24; RESP 4; O2SAT 99
[2021-12-22] MEDS: Aspirin 81 MG CHEW PO (08:25)
[2021-12-22] MEDS: Dexlansoprazole 30 MG CAP 60 MG PO (08:25)
[2021-12-22] MEDS: Propranolol 20 MG TAB PO (08:25)
[2021-12-22] MEDS: Furosemide 20 MG TAB PO (08:25)
[2021-12-22] MEDS: Nystatin POWDER 15 GM JAR TP (08:26)
[2021-12-22] MEDS: Escitalopram 20 MG TAB PO (08:26)
[2021-12-22] MEDS: cefTRIAXone 1 GM/50 ML BAG IVPB (08:26)
[2021-12-22] MEDS: Magnesium Oxide 400 MG TAB PO (08:26)
[2021-12-22] MEDS: Insulin Glargine 300 UNITS/3 ML PEN 20 UNITS SC (08:27)
[2021-12-22 08:29] VITALS: BP 146/69; PULSE 81; RESP 22; TEMP 36.6; O2SAT 95
[2021-12-22] MEDS: Insulin Aspart 300 UNITS/3 ML PEN SC (08:35)
[2021-12-22 10:52] VITALS: O2SAT 94
--- NOTE | 2021-12-22 11:06 | PDOC.CMIN ---
- If Service Date Differs Date of service: 12/22/21 Time of Service: 11:06 Care Management Initial Assess REASON FOR HOSPITALIZATION:: aspiration pneumonia PAST MEDICAL HISTORY/PAST SURGICAL HISTORY:: All Active Problems. Pneumonia (Acute). Acute bronchitis (Acute). Poorly controlled type 2 diabetes mellitus (Acute). Pneumonia (Acute). Gastrostomy in place (Acute). Granuloma annulare (Acute). Lactose intolerance (Acute). Hiatal hernia (Chronic). Venous insufficiency (Acute). Tremor (Acute). Skin rash (Acute). Chest pain, rule out acute myocardial infarction (Acute). Ileus (Acute). Impaired decision making (Chronic). On tube feeding diet (Chronic). Aspiration pneumonia (Acute). Dysphagia (Chronic). IDDM (insulin dependent diabetes mellitus) (Chronic). Schizophrenia (Chronic). Tardive dyskinesia (Chronic). Ambulatory dysfunction (Acute). DVT prophylaxis (Acute). Discharge planning issues (Acute). S/P percutaneous endoscopic gastrostomy (PEG) tube placement (Acute). Dysphagia causing pulmonary aspiration with swallowing (Chronic). Advance directive discussed with patient (Chronic). Chest pain (Acute). Atrial flutter (Chronic). DVT prophylaxis (Chronic). Ambulatory dysfunction (Chronic). Migraine headache without aura (Chronic). Osteoporosis (Chronic). Type 2 diabetes mellitus (Chronic). Urgency incontinence (Chronic 05/01/15). Sensorineural hearing loss, bilateral (Chronic 01/07/15). Dysphagia, unspecified (Chronic 06/22/16). Medical History. Adenomatous polyp of colon. Atrial flutter. Arias's esophagus. Bipolar disorder. Chronic low back pain. Cognitive developmental delay. Depression with anxiety. Developmental delay, borderline. Diabetes mellitus type 2, controlled. Diastolic heart failure. Dysuria. GERD (gastroesophageal reflux disease). Hearing loss. Hyperlipidemia. Hypertension. Hypothyroidism. Neurogenic bladder. Obesity. Obstructive sleep apnea. C-PAP removed due to noncompliance. Osteoarthritis. Palliative care encounter. Schizophrenia. 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). Tardive dyskinesia (01/26/17). Surgical History. H/O tubal ligation. History of cataract surgery. History of hernia repair. History of hysterectomy with bilateral oophorectomy. S/P cholecystectomy PREVIOUS FUNCTIONAL STATUS/SOCIAL/FAMILY SUPPORTS:: Philomena resides in [facility] with her sister, Chantal, who is also her caregiver. Philomena formerly lived at a senior living but moved in with her sister approximately 2 years ago. Philomena has a loving supportive family. CURRENT FUNCTIONAL STATUS:: Philomena was sleeping when CM attempted to meet with her. Later, she was discharged by the provider. Per provider, her O2 saturation was stable today, and the patient felt ready for discharge. Her sister, who is her primary caregiver, drove her home, per nursing. CM will continue to follow. ADVANCE DIRECTIVES:: On file; sister Chantal Rapp is appointed as Health Care Agent. Has patient been provided with info about the portal/API?: No Did the patient sign up for the portal?: No CODE STATUS:: DNR/DNI INSURANCE COVERAGE / FINANCIAL ISSUES:: Medicare and Medicaid. CURRENT HOME/COMMUNITY SERVICES/EQUIPMENT:: [employer] 3 x per week (Wednesday, and Wednesday). She lives with her sister, Chantal, who is her caregiver. Philomena has [facility] needs and her case supervisor is Lizbeth Navarrete. She also sees Dr. Castellanos of [facility] for psychiatric medication management. Philomena recently got a lift chair and her sister says that she had a Bipap machine but it was sent back because she wouldn't wear it at night. PRIMARY CARE PHYSICIAN:: Leti Franz MD ([facility]). POTENTIAL DISCHARGE NEEDS:: Follow up appointments, possible new HH referral. PATIENT/FAMILY EDUCATION NEEDS:: Review discharge instructions and limitations, discussion of self care needs including ask me three. ANTICIPATED BARRIERS TO DISCHARGE:: None identified. TRANSPORTATION:: Via private vehicle by family. PLAN:: Anticipate Philomena will return home when medically cleared. She may benefit from new HH services, although her sister is her primary healthcare management. Her sister will drive her home via private vehicle. She will follow up with her PCP and discharge plan of care. CM will continue to follow.
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
[2021-12-22 12:00] VITALS: O2SAT 96
--- NOTE | 2021-12-22 17:42 | PDOC.CMDIS ---
- If Service Date Differs Date of service: 12/22/21 Time of Service: 17:42 LACE Index Scoring Tool - Questions: Length of Stay (in days): 1 Acuity (Admit via E.D.?): Yes Comorbidities: Diabetes w/o Complication, Congestive Heart Failure E.D. Visits: 2 - Answers: Total Score: 9 Risk of Readmission: Low Risk Care Management Discharge Reason for Hospitalization: aspiration pneumonia Discharge Plan: Philomena returned home today with home health services. Her sister drove her home via private vehicle. She will follow up with her PCP and discharge plan of care. Patient/Family Education Needs: Review discharge instructions and limitations, discussion of self care needs including ask me three.
== END 2021-12-22 12:44 | disposition home health service (06) | DRG 178 ==
LOC: ER 08:19 → MS 11:12
PROVIDERS: Physician Assistant; Admitting Provider Internal Medicine; Emergency Provider Student in an Organized Health Care Education/Training Program; PCP Family Medicine; Visit Provider Internal Medicine
DX: J69.0 Pneumonitis due to inhalation of food and vomit (principal); I48.92 Unspecified atrial flutter; I50.30 Unspecified diastolic (congestive) heart failure; F20.9 Schizophrenia, unspecified; E78.5 Hyperlipidemia, unspecified; I11.0 Hypertensive heart disease with heart failure; K22.70 Barrett's esophagus without dysplasia; E66.9 Obesity, unspecified; F89 Unspecified disorder of psychological development; Z93.1 Gastrostomy status; E11.65 Type 2 diabetes mellitus with hyperglycemia; Z79.4 Long term (current) use of insulin; I87.8 Other specified disorders of veins; R13.10 Dysphagia, unspecified; G43.709 Chronic migraine without aura, not intractable, without status migrainosus; M81.0 Age-related osteoporosis without current pathological fracture; N39.41 Urge incontinence; G24.01 Drug induced subacute dyskinesia; G25.71 Drug induced akathisia
CPT/HCPCS: 36415; 80053; 87635; 93005; 94640; 96361; 96374; 99285; J1650; 71046; 83735; 84484; 85025; 93010; 94668; 99223; 99238; J0696; J2930; J3490; J7613; J7620

== ENCOUNTER 2022-01-12 16:14 | Inpatient (IN) | payer MEDICARE, MEDICAID, SELFPAY ==
[2022-01-12] VITALS (55 sets, daily range): BP systolic 52–204; BP diastolic 17–143; PULSE 84–256; RESP 1–37; TEMP 36.3–36.9; O2SAT 89–96
--- NOTE | 2022-01-12 16:30 | DI.RAD_ITS ---
Exam(s) XR PORTABLE CHEST AP EXAM: XR PORTABLE CHEST AP CLINICAL HISTORY: SOB. TECHNIQUE: 2D digital imaging was performed. COMPARISON: CR,XR XR CHEST 2V PA LATERAL from 12/21/2021 FINDINGS: Single AP portable view. Heart size is upper normal. The mediastinum is not widened. Multiple healed right rib fractures noted. Right lung is clear. Mild increased markings left lower lobe unchanged from prior study and probably chronic. No new infiltrates. No pleural effusions. No pulmonary edema. IMPRESSION: No acute pulmonary findings on this single AP portable view of the chest. DATA REPOSITORY: RADIATION DOSE DELIVERED:
--- NOTE | 2022-01-12 16:30 | RT.EKG_ITS ---
APPROVED REPORT Exam: Resting ECG Reason for Exam: SOB, Atrial Flutter Patient Location: E HR:93 bpm ECG Measurements Heart Rate 93 AXIS TN 164 P 44 QRSd 100 QRS -3 QT 342 T -12 QTc 425 Conclusion Sinus rhythm...normal P axis, V-rate 60- 99 Inferior infarct, age indeterminate...Q>35mS, T neg, II III aVF Physician: no stemi, no change from prior ekg
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
[2022-01-12 17:09] LABS: Abs Immature Grans 0.05 10^3/uL (0.0-0.06); Absolute Basophil Count 0.03 10^3/uL (0.0-0.2); Absolute Eosinophil Count 0.23 10^3/uL (0.0-0.7); Absolute Monocyte Count 0.95 10^3/uL (0.1-0.8); Basophils % 0.3; Eosinophils % 2.1; HGB 13.4 g/dL (11.2-15.7); Immature Grans % 0.5; Lymphocytes % 30.7; MCH 30.5 pg (27.0-33.0); MCHC 33.5 % (32.0-36.0); MCV 91 fL (80-95); MPV 10.5 fL (8.0-11.0); Monocytes % 8.6; Neutrophils % 57.8; Platelet Count 184 10^3/uL (130-400); RBC 4.39 10^6/uL (3.93-5.22); RDW 12.2 % (11.7-14.6); WBC 11.06 10^3/uL (4.4-10.8)
[2022-01-12 17:14] LABS: Absolute Neutrophil Count 6.39 10^3/uL (1.2-6.7)
[2022-01-12] MEDS: methylPREDNISolone SUCC 125 MG VIAL IVP (17:16)
[2022-01-12 17:49] LABS: D-Dimer 602 ng/mlFEU (<500)
[2022-01-12 17:51] LABS: BE (Venous) 6 mmol/L (-2-3); HCO3 (Venous) 30 mmol/L (23-28); O2 Sat (Venous) 83 %; TCO2 (Venous) 27 mmol/L (24-29); pCO2 (Venous) 44 mmHg (41-51); pH (Venous) 7.44 (7.31-7.41); pO2 (Venous) 44 mmHg
[2022-01-12 17:53] LABS: ALT 17 U/L (14-59); AST 12 U/L (15-37); Albumin 2.7 g/dL (3.4-5.0); Alkaline Phosphatase 111 U/L (46-116); Anion Gap 3.9 mmol/L (3-11); BUN 10 mg/dL (7-18); Bilirubin, Total 0.8 mg/dL (0.2-1.0); CO2 30.1 mmol/L (21.0-32.0); CREATININE 1.1 mg/dL (0.55-1.02); Calcium 8.5 mg/dL (8.5-10.1); Chloride 99 mmol/L (98-107); Estimated GFR 52.73 (mL/min/1.73m2); Glucose 247 mg/dL (74-106); Magnesium 1.9 mg/dL (1.8-2.4); NT-proBNP 173 pg/mL (<300); Sodium 133 mmol/L (136-145); Total Protein 6.8 g/dL (6.4-8.2); Troponin I < 50 ng/L (<or=60)
[2022-01-12 18:17] LABS: COVID-19 PCR Negative (Negative); Influenza A PCR Negative (Negative); Influenza B PCR Negative (Negative); RSV PCR Negative (Negative)
[2022-01-12 18:25] LABS: Source Nasopharynx
--- NOTE | 2022-01-12 18:59 | DI.VRAD_ITS ---
PROCEDURE INFORMATION: Exam: Portable XR Chest Exam date and time: 01/12/2022 6:28 PM Age: 76 years old Clinical indication: Other: SOB TECHNIQUE: Imaging protocol: Portable radiologic exam of the chest. Views: 1 view. COMPARISON: 1. CR XR CHEST 2V PA LATERAL 12/21/2021 6:[address] CHEST PE ABD PELVIS W 05/22/2021 8:47 AM 3. CR XR PORTABLE CHEST AP 08/03/2020 10:22 AM FINDINGS: Lungs: There is a poor inspiratory effort. Pleural spaces: Unremarkable. No pleural effusion. No pneumothorax. Heart/Mediastinum: There is cardiomegaly. Bones/joints: There are old healed right rib fractures. There are degenerative changes of thoracic spine. IMPRESSION: Cardiomegaly. Poor inspiratory effort. Osseous findings as above. Dictated and Authenticated by: Chava Donahue MD. Ordering:RODOLFO Figueroa MD
[2022-01-12] MEDS: Albuterol/Ipratropium 3 ML UPD VIAL UPD (20:00)
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
[2022-01-12 21:21] LABS: Troponin I < 50 ng/L (<or=60)
[2022-01-13] MEDS: Cyclobenzaprine 10 MG TAB 5 MG PO ×2 (00:14→22:38)
[2022-01-13] MEDS: Prazosin 1 MG CAP 2 MG PO ×2 (00:14→22:37)
[2022-01-13] MEDS: methylPREDNISolone SUCC 40 MG VIAL IVP ×2 (00:15→08:03)
[2022-01-13] MEDS: clonazePAM 1 MG TAB PO ×2 (00:15→22:37)
[2022-01-13] MEDS: Simvastatin 20 MG TAB PO ×2 (00:15→22:37)
[2022-01-13] MEDS: Normal Saline Flush 10 ML SYR IVP ×2 (00:15→08:01)
[2022-01-13] MEDS: Albuterol/Ipratropium 3 ML UPD VIAL UPD ×2 (00:16→05:38)
[2022-01-13] MEDS: Ziprasidone 20 MG CAP PO ×2 (00:28→22:38)
[2022-01-13] MEDS: Insulin Aspart 300 UNITS/3 ML PEN SC ×5 (00:49→22:40)
[2022-01-13 04:25] VITALS: BP 115/75; PULSE 88; RESP 24; TEMP 36.8; O2SAT 92
[2022-01-13] MEDS: Levothyroxine 112 MCG TAB PO (05:39)
[2022-01-13 07:26] VITALS: BP 133/74; PULSE 85; RESP 20; TEMP 36.1; O2SAT 93
[2022-01-13] MEDS: Dexlansoprazole 30 MG CAP 60 MG PO (08:01)
[2022-01-13] MEDS: Propranolol 20 MG TAB PO ×3 (08:02→20:56)
[2022-01-13] MEDS: Escitalopram 20 MG TAB PO (08:02)
[2022-01-13] MEDS: Furosemide 20 MG TAB PO (08:02)
[2022-01-13] MEDS: Magnesium Oxide 400 MG TAB PO ×2 (08:02→20:56)
[2022-01-13] MEDS: Aspirin 81 MG CHEW PO (08:02)
[2022-01-13] MEDS: Insulin Glargine 300 UNITS/3 ML PEN 40 UNITS SC ×2 (08:28→20:57)
--- NOTE | 2022-01-13 10:22 | PGE_ITS ---
Date of Service Date of service: 01/13/22 Time of Service: 10:23 Assessment and Plan Assessment and plan (1) Asthma: Status: Acute Assessment and plan: with hypoxemia[facility] weaning as able. (2) Hypoxemia: Status: Acute Assessment and plan: due to asthma exacerbation no evidence of pneumonia continue treatment as above pulmonary consult (3) Type 2 diabetes mellitus: Status: Chronic Assessment and plan: diabetic diet, sliding scale coverage as needed anticipate higher readings while on steroids. A1C was 7.5 in July. (4) Schizophrenia: Status: Chronic Assessment and plan: continue home medication (5) DVT prophylaxis: Status: Acute Assessment and plan: enoxaparin (6) Discharge planning issues: Status: Acute Assessment and plan: case management following anticipate a discharge back home discussed with DR Aquino Exam Const General: cooperative, comfortable and no acute distress Nutritional Appearance: overweight Orientation: alert, awake, oriented to person and oriented to place HENNE Head: normal to inspection, normocephalic and atraumatic Mouth: oral mucosae normal Chest Chest: normal inspection of the chest Resp Effort & Inspection: normal respiratory effort and able to speak in complete sentences Auscultation: clear to auscultation bilaterally and diminished lung sounds (bases) bilaterally Cardio Rate: regular rate GI Inspection: obesity (round and soft) Palpation: nontender Extrem General: normal to inspection Psych Appearance: grossly normal Mental Status: mental status grossly normal Speech and Movement: speech and movement normal Mood: congruent mood Affect: normal affect Attitude: cooperative Thought Process: normal Thought Content: normal Insight: limited Judgment: limited Objective Last Vital Signs Temp 36.1 C L 01/13/22 07:26 Pulse 85 01/13/22 07:26 Resp 20 01/13/22 07:26 BP 133/74 01/13/22 07:26 Pulse Ox 93 01/13/22 07:26 Laboratory Results - last 24 hr 01/12/22 01/12/22 01/12/22 16:46 17:00 17:00 WBC 11.06 H RBC 4.39 Hgb 13.4 Hct 40.0 MCV 91 MCH 30.5 MCHC 33.5 RDW 12.2 Plt Count 184 MPV 10.5 Immature Gran % 0.5 Neutrophils % 57.8 Lymphocytes % 30.7 Monocytes % 8.6 Eosinophils % 2.1 Basophils % 0.3 Nucleated RBC % 0.0 Absolute Neutrophils 6.39 Absolute Lymphocytes 3.40 Absolute Monocytes 0.95 H Absolute Eosinophils 0.23 Absolute Basophils 0.03 D-Dimer VBG pH VBG pCO2 VBG pO2 VBG HCO3 VBG Total CO2 VBG O2 Saturation VBG Base Excess Sodium 133 L Potassium 4.0 Chloride 99 Carbon Dioxide 30.1 Anion Gap 3.9 BUN 10 Creatinine 1.1 H Est GFR (CKD-EPI 2020) 52.73 Glucose 247 H Calcium 8.5 Magnesium 1.9 Total Bilirubin 0.8 AST 12 L ALT 17 Alkaline Phosphatase 111 Troponin I < 50 NT-Pro-B Natriuret Pep 173 Total Protein 6.8 Albumin 2.7 L COVID-19 Source Nasopharynx SARS-CoV-2 (PCR) Negative Influenza Type A (PCR) Negative Influenza Type B (PCR) Negative RSV (PCR) Negative 01/12/22 01/12/22 01/12/22 17:00 17:46 20:52 WBC RBC Hgb Hct MCV MCH MCHC RDW Plt Count MPV Immature Gran % Neutrophils % Lymphocytes % Monocytes % Eosinophils % Basophils % Nucleated RBC % Absolute Neutrophils Absolute Lymphocytes Absolute Monocytes Absolute Eosinophils Absolute Basophils D-Dimer 602 H VBG pH 7.44 H VBG pCO2 44 VBG pO2 44 VBG HCO3 30 H VBG Total CO2 27 VBG O2 Saturation 83 VBG Base Excess 6 H Sodium Potassium Chloride Carbon Dioxide Anion Gap BUN Creatinine Est GFR (CKD-EPI 2020) Glucose Calcium Magnesium Total Bilirubin AST ALT Alkaline Phosphatase Troponin I < 50 NT-Pro-B Natriuret Pep Total Protein Albumin COVID-19 Source SARS-CoV-2 (PCR) Influenza Type A (PCR) Influenza Type B (PCR) RSV (PCR)
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
[2022-01-13 14:49] VITALS: BP 131/74; PULSE 71; RESP 18; TEMP 36.3; O2SAT 96
[2022-01-13 15:51] VITALS: O2SAT 96
--- NOTE | 2022-01-13 16:49 | INITIAL_ITS ---
- If Service Date Differs Date of service: 01/13/22 Time of Service: 16:49 Care Management Initial Assess REASON FOR HOSPITALIZATION:: asthma PAST MEDICAL HISTORY/PAST SURGICAL HISTORY:: All Active Problems. Asthma (Chronic). Pneumonia (Acute). Acute bronchitis (Acute). Poorly controlled type 2 diabetes mellitus (Acute). Pneumonia (Acute). Gastrostomy in place (Acute). Granuloma annulare (Acute). Lactose intolerance (Acute). Hiatal hernia (Chronic). Venous insufficiency (Acute). Tremor (Acute). Skin rash (Acute). Chest pain, rule out acute myocardial infarction (Acute). Ileus (Acute). Impaired decision making (Chronic). On tube feeding diet (Chronic). Aspiration pneumonia (Acute). Dysphagia (Chronic). IDDM (insulin dependent diabetes mellitus) (Chronic). Schizophrenia (Chronic). Tardive dyskinesia (Chronic). Ambulatory dysfunction (Acute). S/P percutaneous endoscopic gastrostomy (PEG) tube placement (Acute). Dysphagia causing pulmonary aspiration with swallowing (Chronic). Advance directive discussed with patient (Chronic). Chest pain (Acute). Atrial flutter (Chronic). DVT prophylaxis (Chronic). Ambulatory dysfunction (Chronic). Migraine headache without aura (Chronic). Osteoporosis (Chronic). Type 2 diabetes mellitus (Chronic). Urgency incontinence (Chronic 05/01/15). Sensorineural hearing loss, bilateral (Chronic 01/07/15). Dysphagia, unspecified (Chronic 06/22/16). Medical History. Adenomatous polyp of colon. Atrial flutter. Arias's esophagus. Bipolar disorder. Chronic low back pain. Cognitive developmental delay. Depression with anxiety. Developmental delay, borderline. Diabetes mellitus type 2, controlled. Diastolic heart failure. Dysuria. GERD (gastroesophageal reflux disease). Hearing loss. Hyperlipidemia. Hypertension. Hypothyroidism. Neurogenic bladder. Obesity. Obstructive sleep apnea. C-PAP removed due to noncompliance. Osteoarthritis. Palliative care encounter. Schizophrenia. 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). Tardive dyskinesia (01/26/17). Surgical History. H/O tubal ligation. History of cataract surgery. History of hernia repair. History of hysterectomy with bilateral oophorectomy. S/P cholecystectomy PREVIOUS FUNCTIONAL STATUS/SOCIAL/FAMILY SUPPORTS:: Philomena resides in [facility] with her sister, Chantal, who is also her caregiver. Philomena formerly lived at a [facility] but moved in with her sister approximately 2 years ago. Philomena has a loving supportive family. CURRENT FUNCTIONAL STATUS:: Philomena was sitting up in her chair eating dinner when CM met with her. She was able to answer yes and no questions for CM well, and confirmed that her sister, Chantal is her primary caregiver, and once she is medically cleared she will return home with Chantal. CM will continue to follow. ADVANCE DIRECTIVES:: On file; sister Chantal Rapp is appointed as Health Care Agent. Has patient been provided with info about the portal/API?: Yes Did the patient sign up for the portal?: No CODE STATUS:: DNR/DNI INSURANCE COVERAGE / FINANCIAL ISSUES:: Medicare and Medicaid. CURRENT HOME/COMMUNITY SERVICES/EQUIPMENT:: [employer] 3 x per week (Wednesday, and Wednesday). She lives with her sister, Chantal, who is her caregiver. Philomena has [facility] - highest needs and her case consultant is Lizbeth Navarrete. She also sees Dr. Castellanos of [facility] for psychiatric medication management. Philomena recently got a lift chair and her sister says that she had a Bipap machine but it was sent back because she wouldn't wear it at night. PRIMARY CARE PHYSICIAN:: Leti Franz MD ([facility]) POTENTIAL DISCHARGE NEEDS:: Follow up appointments, possible new HH referral. PATIENT/FAMILY EDUCATION NEEDS:: Review discharge instructions and limitations, discussion of self care needs including ask me three. ANTICIPATED BARRIERS TO DISCHARGE:: None identified. TRANSPORTATION:: Via private vehicle by family. PLAN:: Anticipate Philomena will return home when medically cleared. She may benefit from new HH services, although her sister is her primary primary care pediatrician. Her sister will drive her home via private vehicle. She will follow up with her PCP and discharge plan of care. CM will continue to follow.
--- NOTE | 2022-01-13 17:40 | CHAPLAIN ---
Philomena was up in the chair when I visited, watching TV. She was very pleasant. I introduced myself and explained my role. I'll continue to visit.
[2022-01-13] MEDS: Budesonide/Formoterol 160/4.5 6 GM 60 PUFF INH IH (20:58)
[2022-01-13 22:45] VITALS: BP 121/70; PULSE 76; RESP 20; TEMP 36.4; O2SAT 96
[2022-01-14] VITALS (12 sets, daily range): BP systolic 99–112; BP diastolic 61–73; PULSE 67–103; RESP 1–24; TEMP 36–36.6; O2SAT 88–98
[2022-01-14] MEDS: Normal Saline Flush 10 ML SYR IVP ×2 (03:32→20:33)
[2022-01-14] MEDS: Levothyroxine 112 MCG TAB PO (06:29)
[2022-01-14] MEDS: Insulin Aspart 300 UNITS/3 ML PEN SC ×4 (08:29→21:37)
[2022-01-14] MEDS: Magnesium Oxide 400 MG TAB PO ×2 (08:29→20:32)
[2022-01-14] MEDS: Dexlansoprazole 30 MG CAP 60 MG PO (08:29)
[2022-01-14] MEDS: Escitalopram 20 MG TAB PO (08:29)
[2022-01-14] MEDS: Furosemide 20 MG TAB PO (08:29)
[2022-01-14] MEDS: Propranolol 20 MG TAB PO ×3 (08:29→20:32)
[2022-01-14] MEDS: predniSONE 20 MG TAB 40 MG PO (08:29)
[2022-01-14] MEDS: Aspirin 81 MG CHEW PO (08:29)
[2022-01-14] MEDS: Insulin Glargine 300 UNITS/3 ML PEN 40 UNITS SC ×2 (08:30→20:32)
--- NOTE | 2022-01-14 10:03 | W.PM.PROGNOT ---
Date of Service Date of service: 01/14/22 Time of Service: 10:03 Assessment and Plan Assessment and plan (1) Asthma: Status: Acute Assessment and plan: with hypoxemia. seen by pulmonary. duonebs stopped, symbicort started IS and acapella continue steroids with taper oxygen weaning as able. (2) Hypoxemia: Status: Acute Assessment and plan: see above (3) Type 2 diabetes mellitus: Status: Chronic Assessment and plan: diabetic diet, sliding scale coverage as needed anticipate higher readings while on steroids. A1C was 7.5 in July. (4) Schizophrenia: Status: Chronic Assessment and plan: continue home medication (5) DVT prophylaxis: Status: Acute Assessment and plan: enoxaparin (6) Discharge planning issues: Status: Acute Assessment and plan: case management following anticipate a discharge back home discussed with DR Aquino Subjective Subjective Patient reports: no new complaints, tolerating liquids well, tolerating a regular diet and afebrile; denies shortness of breath Exam Const General: cooperative, comfortable and no acute distress Nutritional Appearance: overweight Orientation: alert, awake, oriented to person and oriented to place HENMT Head: normal to inspection, normocephalic and atraumatic Mouth: oral mucosae normal Chest Chest: normal inspection of the chest Resp Effort & Inspection: normal respiratory effort and able to speak in complete sentences Auscultation: clear to auscultation bilaterally and diminished lung sounds (bases) bilaterally Cardio Rate: regular rate GI Inspection: obesity (round and soft) Palpation: nontender Extrem General: normal to inspection Psych Appearance: grossly normal Mental Status: mental status grossly normal Speech and Movement: speech and movement normal Mood: congruent mood Affect: normal affect Attitude: cooperative Thought Process: normal Thought Content: normal Insight: limited Judgment: limited Objective Last Vital Signs Temp 36 C L 01/14/22 07:30 Pulse 103 H 01/14/22 08:28 Resp 22 01/14/22 07:30 BP 104/63 01/14/22 08:28 Pulse Ox 94 01/14/22 07:30
[2022-01-14] MEDS: Budesonide/Formoterol 160/4.5 6 GM 60 PUFF INH IH ×2 (10:13→20:33)
[2022-01-14] MEDS: Albuterol 2.5 MG/3 ML INH SOLN VIAL UPD (10:21)
--- NOTE | 2022-01-14 18:49 | CMPROGNOTE_ITS ---
- If Service Date Differs Date of service: 01/14/22 Time of Service: 18:49 Care Management Progress Note S/O: Philomena was eating lunch when CM met with her. She had previously worked with RT, who is monitoring her O2 needs. Per report, she will likely be weaned off O2 prior to discharge, unless it is determined that she will require home O2. Her sister is her primary caregiver, and will transport her home as soon as she is medically stable. CM will continue to follow. A: Philomena is a 76 year old female admitted to [facility] on 01/12/22 with asthma. P: Anticipate Philomena will return home when medically cleared. She may benefit from new services, although her sister is her primary nonfarm animal caretaker. Her sister will drive her home via private vehicle. She will follow up with her PCP and discharge plan of care. CM will continue to follow.
[2022-01-14] MEDS: Prazosin 1 MG CAP 2 MG PO (21:38)
[2022-01-14] MEDS: Cyclobenzaprine 10 MG TAB 5 MG PO (21:38)
[2022-01-14] MEDS: Simvastatin 20 MG TAB PO (21:39)
[2022-01-14] MEDS: Ziprasidone 20 MG CAP PO (21:39)
[2022-01-14] MEDS: clonazePAM 1 MG TAB PO (21:40)
[2022-01-15] MEDS: Levothyroxine 112 MCG TAB PO (06:12)
[2022-01-15 07:20] VITALS: BP 133/81; PULSE 62; RESP 20; TEMP 36.1; O2SAT 92
[2022-01-15] MEDS: Aspirin 81 MG CHEW PO (08:39)
[2022-01-15] MEDS: predniSONE 20 MG TAB 40 MG PO (08:40)
[2022-01-15] MEDS: Propranolol 20 MG TAB PO (08:40)
[2022-01-15] MEDS: Magnesium Oxide 400 MG TAB PO (08:40)
[2022-01-15] MEDS: Dexlansoprazole 30 MG CAP 60 MG PO (08:40)
[2022-01-15] MEDS: Furosemide 20 MG TAB PO (08:40)
[2022-01-15] MEDS: Escitalopram 20 MG TAB PO (08:40)
[2022-01-15] MEDS: Insulin Glargine 300 UNITS/3 ML PEN 40 UNITS SC (08:42)
--- NOTE | 2022-01-15 08:56 | CMPROGNOTE_ITS ---
- If Service Date Differs Date of service: 01/15/22 Time of Service: 08:56 Care Management Progress Note S/O: Philomena was eating lunch when CM met with her. She had previously worked with RT, who is monitoring her O2 needs. Per report, she will likely be weaned off O2 prior to discharge, unless it is determined that she will require home O2. Her sister is her primary caregiver, and will transport her home as soon as she is medically stable. CM will continue to follow. A: Philomena is a 76 year old female admitted to [facility] on 01/12/22 with asthma. P: Anticipate Philomena will return home when medically cleared. She may benefit from new services, although her sister is her primary patient care provider. Her sister will drive her home via private vehicle. She will follow up with her PCP and discharge plan of care. CM will continue to follow.
[2022-01-15] MEDS: Budesonide/Formoterol 160/4.5 6 GM 60 PUFF INH IH (09:10)
[2022-01-15 10:07] VITALS: PULSE 82; PULSE 92; O2SAT 89; O2SAT 96; O2SAT 98
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
[2022-01-15] MEDS: Insulin Aspart 300 UNITS/3 ML PEN SC (11:49)
--- NOTE | 2022-01-15 12:41 | CMDISCH_ITS ---
- If Service Date Differs Date of service: 01/15/22 Time of Service: 12:41 LACE Index Scoring Tool - Questions: Length of Stay (in days): 3 Acuity (Admit via E.D.?): Yes Comorbidities: Diabetes w/o Complication E.D. Visits: 3 - Answers: Total Score: 10 Risk of Readmission: High Risk Care Management Discharge Reason for Hospitalization: asthma Discharge Plan: Philomena will return home when medically cleared. She will resume choices for care services, her sister is her primary home care chaplain. Her sister will drive her home via private vehicle. She will follow up with her PCP and discharge plan of care. Patient/Family Education Needs: Review discharge instructions, discuss Ask Me Three.
== END 2022-01-15 13:51 | disposition home or self-care (01) | DRG 202 ==
LOC: ER 22:19 → MS 01-13 04:41
PROVIDERS: Admitting Provider General Practice; Emergency Provider Registered Nurse Emergency; PCP Family Medicine; Visit Provider General Practice
DX: J45.901 Unspecified asthma with (acute) exacerbation (principal); J96.91 Respiratory failure, unspecified with hypoxia; I48.92 Unspecified atrial flutter; I50.30 Unspecified diastolic (congestive) heart failure; Z79.4 Long term (current) use of insulin; Z66 Do not resuscitate; F20.9 Schizophrenia, unspecified; R62.50 Unspecified lack of expected normal physiological development in childhood; G24.01 Drug induced subacute dyskinesia; E11.65 Type 2 diabetes mellitus with hyperglycemia; Z93.1 Gastrostomy status; K44.9 Diaphragmatic hernia without obstruction or gangrene; I87.2 Venous insufficiency (chronic) (peripheral); R13.10 Dysphagia, unspecified; G43.709 Chronic migraine without aura, not intractable, without status migrainosus; N39.41 Urge incontinence; M81.0 Age-related osteoporosis without current pathological fracture; H90.3 Sensorineural hearing loss, bilateral; R26.9 Unspecified abnormalities of gait and mobility; F31.9 Bipolar disorder, unspecified; G89.29 Other chronic pain; M54.50 Low back pain, unspecified; K21.9 Gastro-esophageal reflux disease without esophagitis; I11.0 Hypertensive heart disease with heart failure; E03.9 Hypothyroidism, unspecified; N31.9 Neuromuscular dysfunction of bladder, unspecified; E66.9 Obesity, unspecified; G47.33 Obstructive sleep apnea (adult) (pediatric); G25.71 Drug induced akathisia; I27.20 Pulmonary hypertension, unspecified; J98.6 Disorders of diaphragm
CPT/HCPCS: 36415; 80053; 82805; 87637; 93005; 94618; 94640; 96374; 99285; 71045; 83735; 83880; 84484; 85025; 85379; 93010; 94667; 99222; 99233; 99239; J2930; J3490; J7512; J7613; J7620

== ENCOUNTER 2022-02-23 17:32 | Observation (INO) | payer MEDICARE, MEDICAID, SELFPAY ==
[2022-02-23] VITALS (39 sets, daily range): BP systolic 82–124; BP diastolic 51–96; PULSE 82–111; RESP 13–34; TEMP 37.4–38.7; O2SAT 93–96
--- NOTE | 2022-02-23 17:15 | DI.CT_ITS ---
Exam(s) CT HEAD - STROKE PROTOCOL EXAM: CT HEAD - STROKE PROTOCOL CLINICAL HISTORY: possible cva, r/o acute process. TECHNIQUE: Imaging Protocol: Axial computed tomography images with coronal and sagittal reformatted images were created and reviewed COMPARISON: CT CT HEAD WO from 08/01/[address] HEAD WO from 02/24/2022 FINDINGS: The examination is limited due to patient motion artifact. Ventricles and Extra axial spaces: Normal in size and morphology for the patient's age. Hemorrhage: None. Cerebral parenchyma: There is no evidence of an acute territorial infarct. There are areas of decrea sed attenuation in the white matter consistent with small vessel ischemic disease. Midline shift: None. Brainstem/Cerebellum: Normal. Calvarium: Normal. Visualized Paranasal sinuses/Mastoids: Clear. Soft Tissues: Unremarkable. IMPRESSION: 1. No acute intracranial process. 2. The examination is limited due to patient motion artifact. RADIATION DOSE DELIVERED: 913.93mGy.cm Total DLP DATA REPOSITORY: All CT scans at this facility are submitted to the National Radiology Data Registry (NRDR) Dose Index Registry (DIR) with the [employer] ([employer]). RADIATION OPTIMIZATION: All CT scans at this facility use at least one of these dose optimization te chniques: automated exposure control; mA and/or kV adjustment per patient size (includes targeted exa ms where dose is matched to clinical indication); or iterative reconstruction.
--- NOTE | 2022-02-23 17:15 | DI.RAD_ITS ---
Exam(s) XR CHEST 1V IN DI DEPT EXAM: XR CHEST 1V IN DI DEPT CLINICAL HISTORY: fever, r/o pneumonia TECHNIQUE: 2D digital imaging was performed of the chest. One image was obtained. An AP view was ob tained. COMPARISON: CR XR CHEST 1V IN DI DEPT from 06/25/2018 CR,XR XR PORTABLE CHEST AP from 01/12/2022 FINDINGS: There is poor inspiration. MEDIASTINUM: Normal. HEART: Mild stable cardiomegaly. PULMONARY VASCULATURE: Normal. LUNGS: Stable increased likely chronic parenchymal scarring. There is a question of a left basilar i nfiltrate which has developed since 01/12/2022. PLEURAL SPACE: No pleural effusion or pneumothorax. BONE:Within normal limits for the patient's age. Old healed rib fractures. OTHER FINDINGS:Normal. IMPRESSION: Question of a developing left basilar infiltrate. This may represent atelectasis or pneumonia. DATA REPOSITORY: RADIATION DOSE DELIVERED:
--- NOTE | 2022-02-23 17:45 | RT.EKG_ITS ---
APPROVED REPORT Exam: Resting ECG Reason for Exam: possible cva Patient Location: E HR:100 bpm ECG Measurements Heart Rate 100 AXIS AL 166 P 51 QRSd 93 QRS 20 QT 361 T 8 QTc 466 Conclusion Sinus tachycardia...rate> 99. Sinus. No STEMI. I have reviewed and interpreted ECG and agree with software generated interpretation.
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
[2022-02-23 18:08] LABS: Abs Immature Grans 0.03 10^3/uL (0.0-0.06); Absolute Basophil Count 0.06 10^3/uL (0.0-0.2); Absolute Eosinophil Count 0.08 10^3/uL (0.0-0.7); Absolute Lymphocyte Count 2.52 10^3/uL (1.2-3.4); Absolute Monocyte Count 1.04 10^3/uL (0.1-0.8); Absolute Neutrophil Count 6.79 10^3/uL (1.2-6.7); Basophils % 0.6; Eosinophils % 0.8; HCT 42.6 % (36.0-46.0); HGB 14.3 g/dL (11.2-15.7); Immature Grans % 0.3; MCH 30.7 pg (27.0-33.0); MCHC 33.6 % (32.0-36.0); MCV 91 fL (80-95); MPV 10.3 fL (8.0-11.0); Monocytes % 9.9; Neutrophils % 64.4; Platelet Count 222 10^3/uL (130-400); RBC 4.66 10^6/uL (3.93-5.22); RDW-SD 40.2 fL; WBC 10.52 10^3/uL (4.4-10.8)
[2022-02-23 18:21] LABS: INR 1.1 (0.9-1.1); PTT Activated 24.1 sec (21.0-27.5); Prothrombin Time 10.7 sec (9.3-11.0)
[2022-02-23 18:26] LABS: ALT 21 U/L (14-59); AST 42 U/L (15-37); Albumin 3.3 g/dL (3.4-5.0); Alkaline Phosphatase 110 U/L (46-116); BUN 8 mg/dL (7-18); Bilirubin, Total 0.5 mg/dL (0.2-1.0); CREATININE 0.9 mg/dL (0.55-1.02); Calcium 8.7 mg/dL (8.5-10.1); Chloride 100 mmol/L (98-107); Estimated GFR 67.08 (mL/min/1.73m2); Glucose 179 mg/dL (74-106); Magnesium 1.8 mg/dL (1.8-2.4); Potassium 4.4 mmol/L (3.5-5.1); Sodium 134 mmol/L (136-145); Total Protein 7.1 g/dL (6.4-8.2); Troponin I < 50 ng/L (<or=60)
[2022-02-23] MEDS: ACETAMINOPHEN 1,000 MG/100 ML BTL 400 MG IVPB (18:30)
[2022-02-23] MEDS: Normal Saline 500 ML IV (18:31)
[2022-02-23] MEDS: LORazepam 2 MG/ML VIAL 0.5 MG IVP (18:31)
[2022-02-23 18:41] LABS: Bilirubin Negative (Negative); Blood Negative (Negative); Clarity Clear (Clear); Glucose Negative (Negative); Ketones Negative (Negative); Leukocyte Esterase Negative (Negative); Nitrite Negative (Negative); Specific Gravity >= 1.030 (1.005-1.025); pH 7.5 (5-8)
[2022-02-23 18:46] LABS: COVID-19 PCR Negative (Negative); Influenza A PCR Positive (Negative); Influenza B PCR Negative (Negative); RSV PCR Negative (Negative)
[2022-02-23 18:47] LABS: Source Nasopharynx
--- NOTE | 2022-02-23 19:30 | DI.VRAD_ITS ---
PROCEDURE INFORMATION: Exam: CT Head Without Contrast Exam date and time: 02/23/2022 7:09 PM Age: 76 years old Clinical indication: Other: Possible CVA, R/O acute process TECHNIQUE: Imaging protocol: Computed tomography of the head without contrast. Radiation optimization: All CT scans at this facility use at least one of these dose optimization techniques: automated exposure control; mA and/or kV adjustment per patient size (includes targeted exams where dose is matched to clinical indication); or iterative reconstruction. COMPARISON: CT HEAD WO 08/01/2018 1:08 PM FINDINGS: Limited due to motion and streak artifact Relative increased density in the proximal middle cerebral arteries bilaterally Brain: Relative increased density in the posterior interhemispheric fissure. Mild white matter disease. No mass effect. Cerebral ventricles: No ventriculomegaly. Paranasal sinuses: Visualized sinuses are unremarkable. No fluid levels. Mastoid air cells: Visualized mastoid air cells are well aerated. Bones/joints: Unremarkable. No acute fracture. Soft tissues: Unremarkable. IMPRESSION: Limited study as noted Question minimal hyperdensity posteriorly in the midline. Findings appear slightly more prominent than the previous examination. While findings may be artifactual, trace extra-axial hemorrhage can not be completely excluded. Consider head CT follow-up within 6 hours as clinically indicated Dictated and Authenticated by: James Sim MD. Ordering:JESSA Shaikh MD
--- NOTE | 2022-02-23 19:31 | DI.VRAD_ITS ---
PROCEDURE INFORMATION: Exam: XR Chest Exam date and time: 02/23/2022 6:57 PM Age: 76 years old Clinical indication: Other: Possible CVA, R/O acute process TECHNIQUE: Imaging protocol: Radiologic exam of the chest. Views: 1 view. COMPARISON: XR PORTABLE CHEST AP 01/12/2022 6:28 PM FINDINGS: Mildly limited due to rotation Lungs: Low lung volumes noted. Question left lower lobe opacity Pleural spaces: No pleural effusion. No pneumothorax. Heart/Mediastinum: [id number] cardiomegaly. Bones/joints: Unremarkable. IMPRESSION: Question left lower lobe opacity which may represent subsegmental atelectasis versus developing pneumonia Dictated and Authenticated by: James Sim MD. Ordering:JESSA Shaikh MD
[2022-02-23 20:56] LABS: Procalcitonin < 0.1 ng/mL
[2022-02-23] MEDS: Enoxaparin 40 MG/0.4 ML SYR SC (22:42)
[2022-02-23] MEDS: Normal Saline Flush 10 ML SYR IVP (22:42)
[2022-02-23] MEDS: Normal Saline 1,000 ML 150 ML IV (22:42)
--- NOTE | 2022-02-23 22:53 | TELEP.MEDREC ---
Date of service: 02/23/22 Time of Service: 22:53 Telepharmacy Home Med Rec Allergies Allergies: codeine Allergy (Severe, Unverified 01/12/22 16:24) Penicillins Allergy (Severe, Unverified 01/12/22 16:24) bupropion Allergy (Intermediate, Unverified 01/12/22 16:24) tetrabenazine Allergy (Intermediate, Unverified 01/12/22 16:24) Skin Rash lisinopril Allergy (Mild, Unverified 01/12/22 16:24) oxybutynin chloride [From Ditropan] Allergy (Unverified 01/12/22 16:24) Interview Person Interviewed: Sister (edilia Rapp) and Med Ernie news commentator Quality of Interview/Accuracy of Medication List: Good Sources Sources used to compile medication list: [employer] Medication List, Patient List and Other Changes made to Home Medication List: ADDITIONS: Melatonin 3mg Po HS PRN DELETIONS: Prednisone Magnesium Oxide Nystatin CHANGES: Basaglar 30 units SC BID (decreased from 40 units BID) Recommended Changes Attestation: The home medication list is now updated to the best of my knowledge and is ready to be reconciled by the provider. Please contact the TelePharmacy Medication Reconciliation Pharmacist at for any questions.
[2022-02-24] VITALS (18 sets, daily range): BP systolic 98–167; BP diastolic 60–79; PULSE 72–95; RESP 1–25; TEMP 36.4–38.3; O2SAT 90–97
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
[2022-02-24 06:24] LABS: Abs Immature Grans 0.01 10^3/uL (0.0-0.06); Absolute Basophil Count 0.05 10^3/uL (0.0-0.2); Absolute Eosinophil Count 0.04 10^3/uL (0.0-0.7); Absolute Lymphocyte Count 3.16 10^3/uL (1.2-3.4); Absolute Monocyte Count 1.05 10^3/uL (0.1-0.8); Absolute Neutrophil Count 3.25 10^3/uL (1.2-6.7); Basophils % 0.7; Eosinophils % 0.5; HCT 39.5 % (36.0-46.0); HGB 13.2 g/dL (11.2-15.7); Immature Grans % 0.1; Lymphocytes % 41.8; MCH 30.5 pg (27.0-33.0); MCHC 33.4 % (32.0-36.0); MCV 91 fL (80-95); MPV 10.8 fL (8.0-11.0); Monocytes % 13.9; Platelet Count 188 10^3/uL (130-400); RBC 4.33 10^6/uL (3.93-5.22); RDW 12.2 % (11.7-14.6); RDW-SD 41.1 fL; WBC 7.56 10^3/uL (4.4-10.8)
[2022-02-24 06:34] LABS: BUN 8 mg/dL (7-18); CREATININE 0.8 mg/dL (0.55-1.02); Calcium 8.2 mg/dL (8.5-10.1); Chloride 102 mmol/L (98-107); Estimated GFR 77.27 (mL/min/1.73m2); Glucose 133 mg/dL (74-106); Potassium 3.6 mmol/L (3.5-5.1); Sodium 136 mmol/L (136-145)
[2022-02-24] MEDS: LORazepam 2 MG/ML VIAL 0.5 MG IVP (06:36)
[2022-02-24] MEDS: Acetaminophen 500 MG TAB 1000 MG PO ×3 (06:46→22:07)
[2022-02-24] MEDS: Levothyroxine 112 MCG TAB PO (06:46)
--- NOTE | 2022-02-24 07:22 | DI.CT_ITS ---
Exam(s) CT HEAD WO EXAM: CT HEAD WO CLINICAL HISTORY: follow up abnormal CT scan. TECHNIQUE: Imaging Protocol: Axial computed tomography images with coronal and sagittal reformatted images were created and reviewed COMPARISON: CT CT HEAD - STROKE PROTOCOL from 02/23/2022 FINDINGS: The examination is limited due to patient motion artifact. Ventricles and Extra axial spaces: Normal in size and morphology for the patient's age. Hemorrhage: None. Cerebral parenchyma: No evidence of an acute territorial infarct. There are areas of decreased atten uation in the white matter consistent with small vessel ischemic disease. There do appear to be francia te chronic lacunar infarcts. Midline shift: None. Brainstem/Cerebellum: Normal. Calvarium: Normal. Visualized Paranasal sinuses/Mastoids: Clear. Soft Tissues: Unremarkable. IMPRESSION: 1. No acute intracranial process. 2. Examination limited by patient motion artifact. RADIATION DOSE DELIVERED: 807.02mGy.cm Total DLP DATA REPOSITORY: All CT scans at this facility are submitted to the National Radiology Data Registry (NRDR) Dose Index Registry (DIR) with the [employer] (ACR). RADIATION OPTIMIZATION: All CT scans at this facility use at least one of these dose optimization te chniques: automated exposure control; mA and/or kV adjustment per patient size (includes targeted exa ms where dose is matched to clinical indication); or iterative reconstruction.
[2022-02-24 07:59] LABS: Lab Add On Test DONE
[2022-02-24 08:27] LABS: TSH 0.93 uIU/mL (0.36-3.74)
[2022-02-24] MEDS: Dexlansoprazole 30 MG CAP 60 MG PO (08:29)
[2022-02-24] MEDS: Escitalopram 20 MG TAB PO (08:29)
[2022-02-24] MEDS: Propranolol 20 MG TAB PO ×3 (08:30→22:07)
[2022-02-24] MEDS: Insulin Glargine 300 UNITS/3 ML PEN 30 UNITS SC ×2 (08:30→22:14)
[2022-02-24] MEDS: Insulin Aspart 300 UNITS/3 ML PEN SC ×4 (08:30→17:32)
[2022-02-24] MEDS: Budesonide/Formoterol 160/4.5 6 GM 60 PUFF INH IH ×2 (08:36→20:46)
[2022-02-24] MEDS: Albuterol/Ipratropium 3 ML UPD VIAL UPD ×4 (08:36→20:43)
--- NOTE | 2022-02-24 08:51 | DI.VRAD_ITS ---
PROCEDURE INFORMATION: Exam: CT Head Without Contrast Exam date and time: 02/24/2022 7:15 AM Age: 76 years old Clinical indication: Other: F/u abnormal head CT; Patient HX: Patient unable to hold still for exam. Spoke to patient many times to hold still. Patient appears to be non verbal with me. TECHNIQUE: Imaging protocol: Computed tomography of the head without contrast. Radiation optimization: All CT scans at this facility use at least one of these dose optimization techniques: automated exposure control; mA and/or kV adjustment per patient size (includes targeted exams where dose is matched to clinical indication); or iterative reconstruction. COMPARISON: CT HEAD - STROKE PROTOCOL 02/23/2022 7:09 PM FINDINGS: Brain: The previously described midline hyperdensity not appreciated on this exam may have been artifactual or resolved. There is no evidence of acute brain infarct, mass, shift of midline or parenchymal hemorrhage. Patchy periventricular white matter low attenuation present, a nonspecific finding but likely related to chronic small vessel ischemic change. No acute extra-axial fluid collection. Prior left occipital lobe infarct. Multiple small bilateral remote lacunar infarcts Cerebral ventricles: Moderate dilatation of the ventricular system and sulci diffusely, compatible with volume loss. Paranasal sinuses: Visualized sinuses are unremarkable. No fluid levels. Mastoid air cells: Visualized mastoid air cells are well aerated. Bones/joints: Unremarkable. No acute fracture. Soft tissues: Unremarkable. Other findings: Exam limited by motion artifact IMPRESSION: 1. No evidence of acute process 2. The previously described midline hyperdensity is not appreciated on this exam may have been artifactual or resolved Dictated and Authenticated by: Sanam Herrera MD. Ordering:[facility] Kenia Navas MD
[2022-02-24 08:53] LABS: Hemoglobin A1C 8.2 % (<5.7)
--- NOTE | 2022-02-24 09:01 | PDOC.CMIN ---
- If Service Date Differs Date of service: 02/24/22 Time of Service: 09:01 Care Management Initial Assess REASON FOR HOSPITALIZATION:: Influenza A PAST MEDICAL HISTORY/PAST SURGICAL HISTORY:: All Active Problems (Updated 02/24/22 @ 06:51 by Yosef Aquino MD). Influenza A (Acute). Pulmonary hypertension (Acute). Elevated hemidiaphragm (Acute). Asthma exacerbation (Acute). Hypoxemia (Acute). Asthma (Acute). Pneumonia (Acute). Acute bronchitis (Acute). Poorly controlled type 2 diabetes mellitus (Acute). Pneumonia (Acute). Gastrostomy in place (Acute). Granuloma annulare (Acute). Lactose intolerance (Acute). Hiatal hernia (Chronic). Venous insufficiency (Acute). Tremor (Acute). Skin rash (Acute). Chest pain, rule out acute myocardial infarction (Acute). Ileus (Acute). Impaired decision making (Chronic). On tube feeding diet (Chronic). Aspiration pneumonia (Acute). Dysphagia (Chronic). IDDM (insulin dependent diabetes mellitus) (Chronic). Schizophrenia (Chronic). Tardive dyskinesia (Chronic). Ambulatory dysfunction (Acute). S/P percutaneous endoscopic gastrostomy (PEG) tube placement (Acute). Dysphagia causing pulmonary aspiration with swallowing (Chronic). Advance directive discussed with patient (Chronic). Chest pain (Acute). Atrial flutter (Chronic). DVT prophylaxis (Chronic). Ambulatory dysfunction (Chronic). Migraine headache without aura (Chronic). Osteoporosis (Chronic). Type 2 diabetes mellitus (Chronic). Urgency incontinence (Chronic 05/01/15). Sensorineural hearing loss, bilateral (Chronic 01/07/15). Dysphagia, unspecified (Chronic 06/22/16). Medical History . Adenomatous polyp of colon. Atrial flutter. Arias's esophagus. Bipolar disorder. Chronic low back pain. Cognitive developmental delay. Depression with anxiety. Developmental delay, borderline. Diabetes mellitus type 2, controlled. Diastolic heart failure. Dysuria. GERD (gastroesophageal reflux disease). Hearing loss. Hyperlipidemia. Hypertension. Hypothyroidism. Neurogenic bladder. Obesity. Obstructive sleep apnea. C-PAP removed due to noncompliance. Osteoarthritis. Palliative care encounter. Schizophrenia. 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). Tardive dyskinesia (01/26/17). Surgical History . H/O tubal ligation. History of cataract surgery. History of hernia repair. History of hysterectomy with bilateral oophorectomy. S/P cholecystectomy PREVIOUS FUNCTIONAL STATUS/SOCIAL/FAMILY SUPPORTS:: Philomena lives in a mobile home in [place] [facility] with her sister Chantal and her family. Chantal is her caregiver through [facility] and Lizbeth Navarrete is her disability case manager. Philomena attends [facility] 4 days a week. Her mental health needs are managed through [facility] and Dr. Castellanos prescribes her medication.Cassandra uses a walker and needs assistance/supervision with ADLs. CURRENT FUNCTIONAL STATUS:: Philomena was sitting up in bed when CM met with her. She was awake and alert. Philomena appeared to recognize , known to her from previous encounters. When asked, she stated that things have been going well at home. She thought she might be getting home health services but was not sure. contacted her sister Chantal as well. Chantal informed that Philomena has not been herself for a few weeks. She has been extremely tired and just wants to sleep all the time. She typically goes to bed at 8 pm and will sleep until 10 am if she doesn't have to go to [facility]. After she bathes and has breakfast at home, she will often return to bed and sleep most of the day. Chantal stated that they increased her time at [facility] to 4 days a week in hopes that she would engage more. According to Chantal, the staff at [facility] have made the same observation that she has, namely that Philomena is not participating in the program and just wants to sleep. ADVANCE DIRECTIVES:: COLST form 06/03 DNR/DNI. AIXA- Chantal Rapp Has patient been provided with info about the portal/API?: Yes Did the patient sign up for the portal?: No CODE STATUS:: DNR/DNI INSURANCE COVERAGE / FINANCIAL ISSUES:: Medicare. Medicaid CURRENT HOME/COMMUNITY SERVICES/EQUIPMENT:: Philomena lives in a mobile home in [facility] with her sister Chantal and her family. PRIMARY CARE PHYSICIAN:: Ltei Franz POTENTIAL DISCHARGE NEEDS:: Follow up with PCP and plan of care PATIENT/FAMILY EDUCATION NEEDS:: review of discharge instructions, limitations, activity, follow up plan, Ask Me Three TRANSPORTATION:: via private vehicle with family PLAN:: Anticipate Philomena will discharge home with a resumption of community support services including . She will follow up with her PCP and plan of care and transport with family. CM will follow and support discharge planning needs.
--- NOTE | 2022-02-24 10:02 | IN_ITS ---
Date of service: 02/24/22 Time of Service: 10:02 PT Notes Visit Reasons: Influenza Inpatient Physical Therapy Evaluation Date: 02/24/2022 Referring Doctor:? Yosef Aquino MD PT Orders: PT CONSULT: Fall safety assessment Precautions: Fall.? Activity as tolerated.? Patient Profile/Admitting Diagnosis:? Patient is a 76-year-old female with development delay, tardive dyskinesia, cognitive developmental delay, and bipolar disorder who presented to the ED on 02/23/2022 with complaints of increasing inability to communicate, making gruntled noises, and fever.? Patient was admitted for CVA work up which was later ruled out. Patient was transferred to the [facility] with diagnoses of influenza A, asthma, hypothyroidism, hypertension, and hyperlipidemia. PMHX: All Active Problems?(Updated 02/24/22 @ 06:51 by Yosef Aquino MD) Influenza A (Acute) Pulmonary hypertension (Acute) Elevated hemidiaphragm (Acute) Asthma exacerbation (Acute) Hypoxemia (Acute) Asthma (Acute) Pneumonia (Acute) Acute bronchitis (Acute) Poorly controlled type 2 diabetes mellitus (Acute) Pneumonia (Acute) Gastrostomy in place (Acute) Granuloma annulare (Acute) Lactose intolerance (Acute) Hiatal hernia (Chronic) Venous insufficiency (Acute) Tremor (Acute) Skin rash (Acute) Chest pain, rule out acute myocardial infarction (Acute) Ileus (Acute) Impaired decision making (Chronic) On tube feeding diet (Chronic) Aspiration pneumonia (Acute) Dysphagia (Chronic) IDDM (insulin dependent diabetes mellitus) (Chronic) Schizophrenia (Chronic) Tardive dyskinesia (Chronic) Ambulatory dysfunction (Acute) S/P percutaneous endoscopic gastrostomy (PEG) tube placement (Acute) Dysphagia causing pulmonary aspiration with swallowing (Chronic) Advance directive discussed with patient (Chronic) Chest pain (Acute) Atrial flutter (Chronic) DVT prophylaxis (Chronic) Ambulatory dysfunction (Chronic) Migraine headache without aura (Chronic) Osteoporosis (Chronic) Type 2 diabetes mellitus (Chronic) Urgency incontinence (Chronic 05/01/15) Sensorineural hearing loss, bilateral (Chronic 01/07/15) Dysphagia, unspecified (Chronic 06/22/16) Medical History? Adenomatous polyp of colon Atrial flutter Arias's esophagus Bipolar disorder Chronic low back pain Cognitive developmental delay Depression with anxiety Developmental delay, borderline Diabetes mellitus type 2, controlled Diastolic heart failure Dysuria GERD (gastroesophageal reflux disease) Hearing loss Hyperlipidemia Hypertension Hypothyroidism Neurogenic bladder Obesity Obstructive sleep apnea C-PAP removed due to noncomplianceOsteoarthritis Palliative care encounter Schizophrenia 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) Tardive dyskinesia (01/26/17) Surgical History? H/O tubal ligation History of cataract surgery History of hernia repair History of hysterectomy with bilateral oophorectomy S/P cholecystectomy Social History/Home Situation:? Philomena lived with her sister Chantal who provides assistance with bathing. Sister states that she uses a folding chair, places chair inside the tub, and have Philomena step over and onto chair for bathing.?There is a ramp to enter her sister's house.? Modified independent indoor using FWW. ? Equipment Owned/DME: Hospital bed, 4WW, CPAP machine Subjective: Philomena is agreeable to a PT consult and treatment today.?Denies headache, chest pain, and dizziness throughout session. Objective: General Observation: Seated on chair. 1 L of oxygen per minute via NC.? Dyskinesias at rest and with movement Mental Status: Alert and oriented as to person and place.? Unable to determine date and time. Pain: Denies ROM: Right Upper Extremity: ? Shoulder Flexion WFL. Shoulder abduction WFL. Elbow flexion WFL. Wrist flexion WFL. Functional opening and closing of hand WFL. Left Upper Extremity:? Shoulder Flexion WFL. Shoulder abduction WFL. Elbow flexion WFL. Wrist flexion WFL. Functional opening and closing of hand WFL. Right Lower Extremity: Hip flexion lacks about 50% of available range of motion. Hip abduction lacks about 50% of available range of motion. Knee flexion WFL. Ankle dorsiflexion WFL. Ankle plantarflexion WFL. Left Lower Extremity: Hip flexion lacks about 50% of available range of motion. Hip abduction lacks about 50% of available range of motion. Knee flexion WFL. Ankle dorsiflexion WFL. Ankle plantarflexion WFL. Strength: Right Upper Extremity: Shoulder flexors 4-/5. Shoulder abductors 4-/5. Elbow flexors 4-/5. Elbow extensors 4-/5. Sports Physiotherapist strong. Left Upper Extremity: Shoulder flexors 4-/5. Shoulder abductors 4-/5. Elbow flexors 4-/5. Elbow extensors 4-/5. Sports Physiotherapist strong. Right Lower Extremity: Hip flexors 3-/5. Hip abductors 3-/5. Knee flexors 3-5. Knee extensors 3-/5. Ankle dorsiflexors 3-/5. Ankle plantarflexors 3-/5. Left Lower Extremity: Hip flexors 3-/5. Hip abductors 3-/5. Knee flexors 3-5. Knee extensors 3-/5. Ankle dorsiflexors 3-/5. Ankle plantarflexors ? 3-/5. Sensation: Intact as to pain and pressure to bilateral lower extremities. Bed Mobility/Transfers: Sit to stand contact-guard assist Stand to sit standby assist with FWW Bed to chair standby assist with FWW Gait: Tolerated level surface ambulation of 75 feet using front wheeled walker with wheelchair follow with brief report of shortness of breath and fatigue that resolved with rest. Balance: Static Sitting: Good Dynamic Sitting: Good Static Standing: Fair Dynamic Standing: Fair Special Tests: Mobility Limitations Standardized Measure [facility] 6 clicks Basic Mobility Inpatient Short Form: Raw Score:22 ? CMS Score: 21% deficit Informed Consent/Education: Patient was instructed in purpose of PT consult and plan of care. Agreeable to proceed with established PT POC to achieve personal goals. Assessment: Philomena requires the use of a front wheeled walker for all mobility ADL performance to maximize independence and reduce fall risk. She only required assist of 1 for this assessment. Patient is a 76-year-old female with development delay, tardive dyskinesia, cognitive developmental delay, and bipolar disorder who presented to the ED on 02/23/2022 with complaints of increasing inability to communicate, making gruntled noises, and fever.? Patient was admitted for CVA work up which was later ruled out. Patient was transferred to the [facility] with diagnoses of influenza A, asthma, hypothyroidism, hypertension, and hyperlipidemia. Patient presents with clinical signs and symptoms consistent with current/admitting diagnoses that have resulted to mobility limitations, gait instability, generalized weakness, and lack of motor control as demonstrated by the following impairment level findings: 1.? Decreased strength to B LE major muscle groups 2.? Impaired balance 3.? Impaired activity tolerance 4.? Limitation of joint range of motion in the hips (chronic) 5.? Dyskinesia (chronic) Impairments are contributing to the following functional limitations: 1.? Inability to safely ambulate without assistive device 2.? Increase completion time for mobility ADL performance 3.? Increased fall risk 4.? Inability to negotiate steps alone safely Patient is assessed 09177 moderate complexity based on the following: History: 72-year-old female with diagnosis of community-acquired pneumonia, ambulatory dysfunction, and generalized weakness with co-morbidities and past medical history as indicated above Examination: Underlying impairments and functional deficits have resulted to AMPAC score of 11 with an equivalent deficit of 21% Presentation: Evolving Decision Makin moderate complexity Goals: Goals X1 week 1. Supine-Sit independent 2. Sit-Supine independent 3. Sit-Stand independent 4. Stand-Sit independent 5. Bed-Chair independent 6. Chair-Bed independent 7.?Independent assist gait on level surface with use of least restrictive device for at least 300 feet without report of pain nor dyspnea Plan of Care/Treatment Plan: 1-2x/day, 7 days/week x 1 week. Plan of care has been reviewed with the [employer] providing the service under Physical Therapy direction. Initiate Physical Therapy intervention for strengthening, bed mobility, transfers, gait, stairs, balance training, use of assistive device. DISCHARGE RECOMMENDATIONS: [] ? Home with no services [] [X] ? Home with services. Home when medically cleared by hospitalist. Patient will benefit from home health PT services in order to progress mobility level using least restrictive assistive ambulatory device, assess home safety, identify additional equipment needs, and establish a functional maintenance program that will increase ability of patient to remain at home. [] ? Home with outpatient PT [] [] ? SNF for continued rehabilitation [] [] ? Custodial Care [] [] ? SNF versus LTC based on ability to participate and progress [] TREATMENT CODE/TIME: 38761 x 26 minutes beginning at 10:02 AM. Thank you for the opportunity to participate in the care of this patient. Rox Brown PT, DPT, CLT [facility] [place], [place]
--- NOTE | 2022-02-24 15:16 | PT.INTREAT ---
Date of service: 02/24/22 Time of Service: 14:49 PT Notes Visit Reasons: Influenza Inpatient Physical Therapy Treatment Note [facility] Date: 02/24/2022 PRECAUTIONS: Influenza A, activity as tolerated SUBJECTIVE: Philomena reports that she is feeling tired today. She is pleasant and agreeable to participating in PT. She reports that she is walking and transferring as well as she does at home, that she is at her baseline level of function. OBJECTIVE: PAIN: No c/o pain BED MOBILITY/TRANSFERS Supine-sit: I Sit-supine: I Sit-stand: S Stand-sit: S GAIT Assistive Device: FWW Weight bearing: Full Assist: SBA Distance: 80' Deviation: Mild foot-slap bilaterally STAIRS: Up 3x4 and down 2x6 using B rails and a step-to pattern with supervision TOILETING: Patient tolieted with assist ASSESSMENT: Patient tolerated session without complaint. She was able to tolerate a progression in gait distance with FWW support and SBA. Per patient report, she is at her baseline level of function. PLAN: Continue with general conditioning and global strengthening for improved activity tolerance. TREATMENT CODE/TIME: 16 minutes; 36742 (14:49)
--- NOTE | 2022-02-24 19:59 | W.PM.PROGNOT ---
Date of Service Date of service: 02/24/22 Time of Service: 19:59 Assessment and Plan Assessment and plan (1) Influenza A: Status: Acute Assessment and plan: S/p baloxavir (Xofluza). Continue symbicort, scheduled and prn bronchodilators. Monitor respiratory status. (2) Asthma: Status: Acute Assessment and plan: As above. Consider steroids. (3) Bipolar disorder: Assessment and plan: Continue clonazepam and geodon (4) Diabetes mellitus type 2, controlled: Assessment and plan: Continue basal/bolus insulin (5) Cognitive developmental delay: Assessment and plan: Behaviors are well controlled, and the patient is able to answer questions/follow commands. Continue to monitor behaviors. (6) Tardive dyskinesia: Assessment and plan: At her baseline. (7) Schizophrenia: Assessment and plan: continue Geodon (8) Hypothyroidism: Assessment and plan: continue levothyroxine (9) Hypertension: Assessment and plan: continue propranolol and prazosin. Qualifiers: Hypertension type: essential hypertension Qualified Code(s): I10 - Essential (primary) hypertension (10) Hyperlipidemia: Assessment and plan: continue simvastatin (11) GERD (gastroesophageal reflux disease): Assessment and plan: Continue dexilant. (12) DVT prophylaxis: Status: Chronic Assessment and plan: SCD. Consider chemical DVT ppx if not discharged home tomorrow. (13) Discharge planning issues: Status: Resolved Assessment and plan: DNR/DNI Anticipate discharge home as early as tomorrow. Subjective Subjective Interval history since last seen: Ms Adames States she has had a little cough and feels short of breath. Denies dizziness, chest pain, nausea. Exam Narrative Exam Narrative: General: pleasant elderly female with TD and akathesia w/ coreaform movements. HEENT: EOMI, MMM Heart: RRR, no m/r/g Lungs: CTAB, coughing (nonproductive) Abdomen: soft, nontender, nondistended Extremities: no edema BLEs Objective Last Vital Signs Temp 36.4 C L 02/24/22 15:48 Pulse 72 02/24/22 16:09 Resp 22 02/24/22 15:48 BP 125/79 02/24/22 15:48 Pulse Ox 95 02/24/22 16:09 Laboratory Results - last 24 hr 02/23/22 02/24/22 02/24/22 17:51 05:45 05:45 WBC 7.56 RBC 4.33 Hgb 13.2 Hct 39.5 MCV 91 MCH 30.5 MCHC 33.4 RDW 12.2 Plt Count 188 MPV 10.8 Immature Gran % 0.1 Neutrophils % 43.0 Lymphocytes % 41.8 Monocytes % 13.9 Eosinophils % 0.5 Basophils % 0.7 Nucleated RBC % 0.0 Absolute Neutrophils 3.25 Absolute Lymphocytes 3.16 Absolute Monocytes 1.05 H Absolute Eosinophils 0.04 Absolute Basophils 0.05 Sodium 136 Potassium 3.6 Chloride 102 Carbon Dioxide 27.0 Anion Gap 7.0 BUN 8 Creatinine 0.8 Est GFR (CKD-EPI 2020) 77.27 Glucose 133 H Hemoglobin A1c Calcium 8.2 L Procalcitonin < 0.1 TSH Add-On Test Request 02/24/22 02/24/22 02/24/22 05:45 05:45 Unknown WBC RBC Hgb Hct MCV MCH MCHC RDW Plt Count MPV Immature Gran % Neutrophils % Lymphocytes % Monocytes % Eosinophils % Basophils % Nucleated RBC % Absolute Neutrophils Absolute Lymphocytes Absolute Monocytes Absolute Eosinophils Absolute Basophils Sodium Potassium Chloride Carbon Dioxide Anion Gap BUN Creatinine Est GFR (CKD-EPI 2020) Glucose Hemoglobin A1c 8.2 H Calcium Procalcitonin TSH 0.93 Add-On Test Request DONE
[2022-02-24] MEDS: Ziprasidone 20 MG CAP PO (22:07)
[2022-02-24] MEDS: Prazosin 1 MG CAP 2 MG PO (22:07)
[2022-02-24] MEDS: Simvastatin 20 MG TAB PO (22:07)
[2022-02-24] MEDS: clonazePAM 1 MG TAB PO (22:08)
[2022-02-24] MEDS: Normal Saline Flush 10 ML SYR IVP (22:12)
[2022-02-25] VITALS (8 sets, daily range): BP systolic 94–126; BP diastolic 51–78; PULSE 67–80; RESP 7–22; TEMP 36.3–36.8; O2SAT 92–98
[2022-02-25] MEDS: Albuterol 2.5 MG/3 ML INH SOLN VIAL UPD (05:10)
[2022-02-25] MEDS: Levothyroxine 112 MCG TAB PO (05:10)
[2022-02-25] MEDS: Normal Saline Flush 10 ML SYR IVP (05:11)
[2022-02-25 07:04] LABS: Abs Immature Grans 0.01 10^3/uL (0.0-0.06); Absolute Basophil Count 0.05 10^3/uL (0.0-0.2); Absolute Eosinophil Count 0.13 10^3/uL (0.0-0.7); Absolute Lymphocyte Count 3.39 10^3/uL (1.2-3.4); Absolute Monocyte Count 0.77 10^3/uL (0.1-0.8); Basophils % 0.8; HCT 42.9 % (36.0-46.0); HGB 14.1 g/dL (11.2-15.7); Immature Grans % 0.2; Lymphocytes % 52.6; MCH 30.5 pg (27.0-33.0); MCHC 32.9 % (32.0-36.0); MCV 93 fL (80-95); MPV 10.7 fL (8.0-11.0); Monocytes % 11.9; Neutrophils % 32.5; Platelet Count 197 10^3/uL (130-400); RBC 4.63 10^6/uL (3.93-5.22); RDW 12.6 % (11.7-14.6); RDW-SD 42.9 fL; WBC 6.45 10^3/uL (4.4-10.8)
[2022-02-25 07:20] LABS: BUN 10 mg/dL (7-18); CREATININE 0.8 mg/dL (0.55-1.02); Calcium 8.7 mg/dL (8.5-10.1); Chloride 103 mmol/L (98-107); Estimated GFR 77.27 (mL/min/1.73m2); Glucose 181 mg/dL (74-106); Magnesium 2.1 mg/dL (1.8-2.4); Potassium 3.7 mmol/L (3.5-5.1); Sodium 137 mmol/L (136-145)
[2022-02-25] MEDS: Albuterol/Ipratropium 3 ML UPD VIAL UPD ×3 (07:56→15:14)
[2022-02-25] MEDS: Budesonide/Formoterol 160/4.5 6 GM 60 PUFF INH IH (07:57)
[2022-02-25] MEDS: Insulin Aspart 300 UNITS/3 ML PEN SC ×4 (08:13→12:34)
[2022-02-25] MEDS: Acetaminophen 500 MG TAB 1000 MG PO ×2 (08:14→13:35)
[2022-02-25] MEDS: Insulin Glargine 300 UNITS/3 ML PEN 30 UNITS SC (08:14)
[2022-02-25] MEDS: Escitalopram 20 MG TAB PO (08:14)
[2022-02-25] MEDS: Propranolol 20 MG TAB PO ×2 (08:15→13:35)
[2022-02-25] MEDS: Dexlansoprazole 30 MG CAP 60 MG PO (08:15)
--- NOTE | 2022-02-25 09:34 | CMPROGNOTE_ITS ---
- If Service Date Differs Date of service: 02/25/22 Time of Service: 09:34 Care Management Progress Note S/O: A: Philomena is a 76 year old woman admitted on 02/23/22 with Influenza P:Anticipate Philomena will discharge home with a resumption of community support services including [facility] and her [facility] caregiver (sister Chantal). She will follow up with her PCP and plan of care and transport with family. CM will follow and support discharge planning needs.
--- NOTE | 2022-02-25 13:52 | PT.INTREAT ---
Date of service: 02/25/22 Time of Service: 09:45 PT Notes Visit Reasons: Influenza Inpatient Physical Therapy Treatment Note [facility] Date: 02/25/2022 PRECAUTIONS: Influenza A, activity as tolerated SUBJECTIVE: Philomena reports that she is feeling tired today. She is pleasant and agreeable to participating in PT. She reports that she is walking and transferring as well as she does at home, that she is at her baseline level of function. OBJECTIVE: PAIN: No c/o pain BED MOBILITY/TRANSFERS Sit-supine: I Sit-stand: I Stand-sit: I GAIT Assistive Device: FWW Weight bearing: Full Assist: S Distance: 50' Deviation: Mild foot-slap bilaterally THEREX: Patient was instructed in a LE strengthening program, completed in a supine position, to include: ankle pumps, quad sets, glute sets, SLR, heel slides and hip abduction. She requires verbal cueing for reorientation to task. ASSESSMENT: Patient tolerated session without complaint. She demonstrates independence with transfers and bed mobility at this time. PLAN: Patient to discharge to home later today. No services upon discharge recommended at this time. TREATMENT CODE/TIME: 10 minutes; 34097 (09:45)
--- NOTE | 2022-02-25 14:50 | PDOC.CMPRO ---
- If Service Date Differs Date of service: 02/25/22 Time of Service: 14:50
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
--- NOTE | 2022-02-25 15:14 | CMDISCH_ITS ---
- If Service Date Differs Date of service: 02/25/22 Time of Service: 15:14 LACE Index Scoring Tool - Questions: Length of Stay (in days): 2 Acuity (Admit via E.D.?): Yes Comorbidities: Diabetes w/o Complication E.D. Visits: 4 - Answers: Total Score: 10 Risk of Readmission: High Risk Care Management Discharge Reason for Hospitalization: Influenza A Discharge Plan: Philomena will discharge home with a resumption of community support services including [facility] and her [facility] caregiver (sister Chantal). She will follow up with her PCP and plan of care and transport with family. Patient/Family Education Needs: Review discharge instructions, discuss Ask Me Three. Services Needed at Discharge: Home Health Care Services (C Resumption)
[2022-02-25] MEDS: predniSONE 20 MG TAB 40 MG PO (15:42)
== END 2022-02-25 16:00 | disposition home or self-care (01) ==
LOC: ER 21:26 → MS 22:07
PROVIDERS: Internal Medicine; Admitting Provider Internal Medicine; Emergency Provider Physician Assistant; PCP Family Medicine; Visit Provider Internal Medicine
DX: J10.1 Influenza due to other identified influenza virus with other respiratory manifestations (principal); R41.82 Altered mental status, unspecified; R47.89 Other speech disturbances; E03.9 Hypothyroidism, unspecified; F20.9 Schizophrenia, unspecified; G24.01 Drug induced subacute dyskinesia; F31.9 Bipolar disorder, unspecified; J45.909 Unspecified asthma, uncomplicated; R41.89 Other symptoms and signs involving cognitive functions and awareness; K21.9 Gastro-esophageal reflux disease without esophagitis; I10 Essential (primary) hypertension; E78.5 Hyperlipidemia, unspecified; I48.92 Unspecified atrial flutter; G47.33 Obstructive sleep apnea (adult) (pediatric); Z79.899 Other long term (current) drug therapy; Z20.822 Contact with and (suspected) exposure to COVID-19; Z79.4 Long term (current) use of insulin; I27.20 Pulmonary hypertension, unspecified; E11.65 Type 2 diabetes mellitus with hyperglycemia; F89 Unspecified disorder of psychological development; Z93.1 Gastrostomy status; K44.9 Diaphragmatic hernia without obstruction or gangrene; I87.8 Other specified disorders of veins; H90.3 Sensorineural hearing loss, bilateral; R13.10 Dysphagia, unspecified; M81.0 Age-related osteoporosis without current pathological fracture; G43.709 Chronic migraine without aura, not intractable, without status migrainosus; N31.9 Neuromuscular dysfunction of bladder, unspecified; Z66 Do not resuscitate
CPT/HCPCS: 36415; 80048; 80053; 84145; 87040; 87637; 93005; 94640; 96361; 96365; 96372; 96374; 96375; 97162; 97530; 99285; J1650; 70450; 71045; 81003; 83036; 83735; 84443; 84484; 85025; 85610; 85730; 93010; 99217; 99219; G0378; J0131; J2060; J3490; J7512; J7613; J7620

== ENCOUNTER 2022-05-22 01:06 | Outpatient (CLI) | payer MEDICARE, MEDICAID, SELFPAY ==
--- NOTE | 2022-05-22 07:15 | DI.RAD_ITS ---
Exam(s) XR CHEST 2V PA LATERAL EXAM: XR CHEST 2V PA LATERAL CLINICAL HISTORY: assess L diaphragm elevation and infiltrates,J98.6 TECHNIQUE: 2D digital imaging was performed of the chest. Two images were obtained. PA and lateral views were obtained. COMPARISON: CR,XR XR CHEST 2V PA LATERAL from 12/21/2021 CR,XR XR PORTABLE CHEST AP from 01/12/2022 CR,XR XR CHEST 1V IN DI DEPT from 02/23/2022 FINDINGS: There is poor inspiration. MEDIASTINUM: Normal. HEART: Normal. PULMONARY VASCULATURE: Normal. LUNGS: There are increased lung markings in the left lung base. These are likely stable. No new inf iltrates are seen. PLEURAL SPACE: No pleural effusion or pneumothorax. BONE:Within normal limits for the patient's age. Old right rib fractures are seen. There is no altamirano ge in mild elevation of the left hemidiaphragm. OTHER FINDINGS:Normal. IMPRESSION: No change in appearance of the chest x-ray. No acute findings are seen. DATA REPOSITORY: RADIATION DOSE DELIVERED:
== END 2022-05-22 01:07 | disposition home or self-care (01) ==
PROVIDERS: PCP Family Medicine; Visit Provider Student in an Organized Health Care Education/Training Program
DX: J98.6 Disorders of diaphragm
CPT/HCPCS: 71046

== ENCOUNTER 2022-06-12 09:55 | Emergency (ER) | payer MEDICARE, MEDICAID, SELFPAY ==
[2022-06-12 10:01] VITALS: BP 124/65; PULSE 75; RESP 22; TEMP 36.6; O2SAT 97
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
--- NOTE | 2022-06-12 11:19 | DI.RAD_ITS ---
Exam(s) XR LUMBAR SPINE COMPLETE EXAM: XR LUMBAR SPINE COMPLETE CLINICAL HISTORY: back pain. TECHNIQUE: 2D digital imaging was performed. Five views. COMPARISON: CR LUMBAR SPINE COMPLETE from 02/04/[address] ABDOMEN PELVIS W from 07/01/2018 CR XR abdomen flat upright from 07/04/[address] CHEST PE CTA from 08/01/2018 CR XR CHEST 2V PA LATERAL from 05/22/2022 FINDINGS: BONES: Limited evaluation due to large amount of overlying bowel gas and bony demineralization.. St able T10 compression fracture. Mild loss of height of L4 vertebral body. Endplate osteophytes noted at multiple levels. No spondylolysis, spondylolisthesis or significant scoliosis. DISKS: Intervertebral disc spaces are maintained. ALIGNMENT: Lumbar spinal alignment is within normal limits. SOFT TISSUE: Large quantity of stool noted in right side of colon. IMPRESSION: Old T12 compression fracture. Mild compression fracture L4 of indeterminate age, new since 2019.. DATA REPOSITORY: RADIATION DOSE DELIVERED:
[2022-06-12] MEDS: Diclofenac 1% Gel 100 GM TUBE TP (11:33)
--- NOTE | 2022-06-12 11:50 | NUR.NOTE ---
Sujatha requesting an evaluation with patient PCP for back pain next week. CLB
[2022-06-12 12:39] VITALS: BP 113/79; PULSE 72; RESP 18; O2SAT 96
== END 2022-06-12 12:54 | disposition home or self-care (01) ==
PROVIDERS: Emergency Provider Nurse Practitioner Family; PCP Family Medicine
DX: M54.50 Low back pain, unspecified (principal); S22.089D Unspecified fracture of T11-T12 vertebra, subsequent encounter for fracture with routine healing; S32.049D Unspecified fracture of fourth lumbar vertebra, subsequent encounter for fracture with routine healing; J45.909 Unspecified asthma, uncomplicated; I11.0 Hypertensive heart disease with heart failure; I50.30 Unspecified diastolic (congestive) heart failure; E11.9 Type 2 diabetes mellitus without complications; E03.9 Hypothyroidism, unspecified; Z79.51 Long term (current) use of inhaled steroids; Z79.82 Long term (current) use of aspirin; Z79.4 Long term (current) use of insulin; X58.XXXD Exposure to other specified factors, subsequent encounter
CPT/HCPCS: 99283; 72110

== ENCOUNTER 2022-06-29 19:08 | Outpatient (REF) | payer MEDICARE, MEDICAID, SELFPAY ==
[2022-06-29 19:26] LABS: HCT 44.4 % (36.0-46.0); HGB 14.9 g/dL (11.2-15.7); MCH 30.5 pg (27.0-33.0); MCHC 33.6 % (32.0-36.0); MCV 91 fL (80-95); MPV 11.5 fL (8.0-11.0); Platelet Count 248 10^3/uL (130-400); RBC 4.89 10^6/uL (3.93-5.22); RDW 12.3 % (11.7-14.6); RDW-SD 40.6 fL; WBC 7.96 10^3/uL (4.4-10.8)
[2022-06-29 20:00] LABS: Hemoglobin A1C 6.7 % (<5.7)
[2022-06-29 20:14] LABS: ALT 16 U/L (14-59); AST 21 U/L (15-37); Albumin 3.4 g/dL (3.4-5.0); Alkaline Phosphatase 146 U/L (46-116); Anion Gap 7.3 mmol/L (3-11); BUN 10 mg/dL (7-18); Bilirubin, Total 0.3 mg/dL (0.2-1.0); CO2 27.7 mmol/L (21.0-32.0); CREATININE 0.9 mg/dL (0.55-1.02); Calcium 8.8 mg/dL (8.5-10.1); Chloride 108 mmol/L (98-107); Estimated GFR 67.08 (mL/min/1.73m2); Glucose 82 mg/dL (74-106); Potassium 4.2 mmol/L (3.5-5.1); Sodium 143 mmol/L (136-145); TSH (W/Ref FT4) 2.16 uIU/mL (0.36-3.74); Total Protein 7.5 g/dL (6.4-8.2)
== END 2022-06-29 19:09 | disposition home or self-care (01) ==
LOC: NCHCN 19:08
PROVIDERS: PCP Family Medicine; Visit Provider Family Medicine
DX: E11.9 Type 2 diabetes mellitus without complications (principal); R63.4 Abnormal weight loss
CPT/HCPCS: 80053; 85027; 83036; 84443

== ENCOUNTER 2022-07-15 14:09 | Emergency (ER) | payer OTHER, MEDICAID, SELFPAY ==
[2022-07-15] VITALS (15 sets, daily range): BP systolic 97–129; BP diastolic 51–90; PULSE 67–108; RESP 18–33; TEMP 37.4; O2SAT 91–97
--- NOTE | 2022-07-15 14:15 | RT.EKG_ITS ---
APPROVED REPORT Exam: Resting ECG Reason for Exam: sob Patient Location: E HR:84 bpm ECG Measurements Heart Rate 84 AXIS HI 62 P 163 QRSd 104 QRS -7 QT 387 T -11 QTc 459 Conclusion Sinus or ectopic atrial rhythm...P axis (-45,135) Left atrial enlargement...P, P'>60mS, <-0.15mV V1 Left ventricular hypertrophy...multiple LVH criteria Inferior infarct, old...Q >35mS, II III aVF. Sinus. [place] baseline obscuring V6. T wave inversion III and aVF seen in previous EKG. No signific ant change compared to previous EKG. No STEMI. I have reviewed and interpreted ECG and agree with software generated interpretation.
[2022-07-15 15:25] LABS: Abs Immature Grans 0.04 10^3/uL (0.0-0.06); Absolute Eosinophil Count 0.15 10^3/uL (0.0-0.7); Absolute Monocyte Count 1.16 10^3/uL (0.1-0.8); Absolute Neutrophil Count 8.47 10^3/uL (1.2-6.7); Basophils % 0.4; Eosinophils % 1.1; HCT 44.1 % (36.0-46.0); HGB 14.6 g/dL (11.2-15.7); Immature Grans % 0.3; Lymphocytes % 28.3; MCH 29.9 pg (27.0-33.0); MCHC 33.1 % (32.0-36.0); MCV 90 fL (80-95); MPV 10.8 fL (8.0-11.0); Monocytes % 8.4; Neutrophils % 61.5; Platelet Count 237 10^3/uL (130-400); RBC 4.89 10^6/uL (3.93-5.22); RDW 12.5 % (11.7-14.6); RDW-SD 41.3 fL; WBC 13.77 10^3/uL (4.4-10.8)
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
[2022-07-15 15:26] LABS: Absolute Basophil Count 0.06 10^3/uL (0.0-0.2)
[2022-07-15] MEDS: Albuterol/Ipratropium 3 ML UPD VIAL UPD (15:40)
[2022-07-15] MEDS: methylPREDNISolone SUCC 125 MG VIAL 80 MG IVP (15:40)
[2022-07-15 15:42] LABS: ALT 12 U/L (14-59); AST 11 U/L (15-37); Albumin 3.3 g/dL (3.4-5.0); Alkaline Phosphatase 129 U/L (46-116); Anion Gap 5.6 mmol/L (3-11); BUN 8 mg/dL (7-18); Bilirubin, Total 0.5 mg/dL (0.2-1.0); CO2 30.4 mmol/L (21.0-32.0); CREATININE 0.9 mg/dL (0.55-1.02); Calcium 9.1 mg/dL (8.5-10.1); Chloride 104 mmol/L (98-107); Estimated GFR 67.08 (mL/min/1.73m2); Glucose 257 mg/dL (74-106); Potassium 4.1 mmol/L (3.5-5.1); Sodium 140 mmol/L (136-145); Total Protein 7.8 g/dL (6.4-8.2)
--- NOTE | 2022-07-15 15:45 | DI.RAD_ITS ---
Exam(s) XR CHEST 2V PA LATERAL EXAM: XR CHEST 2V PA LATERAL CLINICAL HISTORY: cough, fever, hx of aspiration TECHNIQUE: 2D digital imaging was performed of the chest. Two images were obtained. AP and lateral views were obtained. COMPARISON: CR XR CHEST 2V PA LATERAL from 05/22/2022 FINDINGS: The examination is suboptimal due to patient positioning and poor inspiration. MEDIASTINUM: Normal. HEART: Normal. PULMONARY VASCULATURE: Normal. LUNGS: The left perihilar infiltrate cannot be excluded. The right lung appears clear. PLEURAL SPACE: No pleural effusion or pneumothorax. BONE:Within normal limits for the patient's age. OTHER FINDINGS:Normal. IMPRESSION: 1. Examination is limited due to patient positioning and poor inspiration. 2. The left perihilar infiltrate cannot be excluded. DATA REPOSITORY: RADIATION DOSE DELIVERED:
[2022-07-15 15:51] LABS: NT-proBNP 127 pg/mL (<300); Troponin I < 50 ng/L (<or=60)
[2022-07-15 15:59] LABS: BE (Venous) 4 mmol/L (-2-3); HCO3 (Venous) 29 mmol/L (23-28); O2 Sat (Venous) 69 %; TCO2 (Venous) 27 mmol/L (24-29); pCO2 (Venous) 50 mmHg (41-51); pH (Venous) 7.38 (7.31-7.41); pO2 (Venous) 36 mmHg
[2022-07-15 16:01] LABS: Lactate 1.4 mmol/L (0.6-1.4)
[2022-07-15 16:04] LABS: COVID-19 PCR Negative (Negative); Influenza A PCR Negative (Negative); Influenza B PCR Negative (Negative); RSV PCR Negative (Negative)
[2022-07-15 16:06] LABS: Source Nasopharynx
[2022-07-15] MEDS: DOXYCYCLINE 100 MG in Normal Saline 100 ML IVPB (17:24)
--- NOTE | 2022-07-15 18:17 | NUR.NOTE ---
Nursing Note: Referral faxed to PCP for pneumonia recheck; early next week.
== END 2022-07-15 18:38 | disposition home or self-care (01) ==
PROVIDERS: Physician Assistant; Emergency Provider Nurse Practitioner Family; PCP Family Medicine
DX: J18.9 Pneumonia, unspecified organism (principal); J45.909 Unspecified asthma, uncomplicated; R50.9 Fever, unspecified; Z20.822 Contact with and (suspected) exposure to COVID-19; J96.10 Chronic respiratory failure, unspecified whether with hypoxia or hypercapnia; Z99.81 Dependence on supplemental oxygen
CPT/HCPCS: 36415; 80053; 82805; 87040; 87637; 93005; 96365; 96375; 99284; 71046; 83605; 83880; 84484; 85025; 93010; J2930; J7620

== ENCOUNTER 2022-07-21 22:54 | Emergency (ER) | payer OTHER, MEDICAID, SELFPAY ==
[2022-07-21 23:00] VITALS: BP 138/80; PULSE 75; RESP 20; TEMP 37.1; O2SAT 95
--- NOTE | 2022-07-21 23:05 | W.ED.GENAD ---
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 Inspection: normal to inspection and obesity Palpation: soft, not firm, not rigid and nontender Auscultation: hypoactive bowel sounds Rectal Exam - female: visual inspection normal and normal sphincter tone Back/Spine/Pelvis Thoracic/Lumbar Spine: thoracic and lumbar spine normal to inspection, paraspinal tenderness (Bilateral lumbar) and lumbar spinal tenderness Skin General skin exam: no rashes or lesions noted Neuro General: patient alert and patient awake Cognition: normal cognition Speech: abnormal speech garbled DTR's: Rt Patellar: 0, Lt Patellar: 0, Rt Ankle: 0 and Lt Ankle: 0 Plantar Reflexes: Equivocal: bilateral (negative babinski b/l ) Extrem General: normal to inspection Psych Appearance: disheveled Mental Status: mental status grossly normal Affect: normal affect Course Vital Signs Vital signs: Vital Signs Temperature 98.7 F 07/21/22 23:00 Pulse 75 07/21/22 23:00 Respiratory Rate 20 07/21/22 23:00 Pulse Oximetry 95 07/21/22 23:00 Temperature 98.7 F 07/21/22 23:00 Temperature Source Oral 07/21/22 23:00 Pulse 75 07/21/22 23:00 Respiratory Rate 20 07/21/22 23:00 Pulse Oximetry 95 07/21/22 23:00 Oxygen Delivery Method Nasal Cannula 07/21/22 23:00 Oxygen Flow Rate 2.5 07/21/22 23:00 Pain Level 10 07/21/22 23:00
--- NOTE | 2022-07-21 23:30 | DI.CT_ITS ---
Exam(s) CT THORACIC LUMBAR SPINE WO CT CHEST PE ABD PELVIS W EXAM: CT CHEST PE ABD PELVIS W CLINICAL HISTORY: lower back pain, recent pneumonia. TECHNIQUE: Imaging Protocol: Axial CT angiography was performed with multi-slice acquisition and mu lti-planar and/or 3D reconstructions. CONTRAST MATERIAL: Intravenous: Omnipaque 350 Contrast volume:100 ml COMPARISON: CT CT CHEST PE ABD PELVIS W from 05/22/2021 CR XR LUMBAR SPINE COMPLETE from 06/12/2022 CR XR CHEST 2V PA LATERAL from 07/15/[address] THORACIC LUMBAR SPINE WO from 07/22/2022 FINDINGS: CHEST: Exam somewhat limited by patient motion. Pulmonary Arteries: No evidence of filling defect to suggest pulmonary emboli. Tracheobronchial tree: Patent where visualized. Mediastinum and Diane: No dominant adenopathy or fluid collection. Pulmonary parenchyma: Evaluation limited due to respiratory motion and poor pulmonary inflation. Melba und-glass infiltrates not excluded. No focal area of consolidation. No consolidation or dominant me asurable mass. Pleura: No effusion or pneumothorax. Heart: The heart is not dilated. No coronary artery calcifications are seen. Aorta: Thoracic aorta non-dilated. Bones: Old T10 compression fracture. Scoliosis. Degenerative changes. Old bilateral rib fractures. Old sternal fracture. Tubes, Catheters, and Lines: None ABDOMEN: Liver: Normal density. No measurable mass. Portal, Superior Mesenteric, and Splenic Veins: Unremarkable. Gallbladder and Biliary Tract: Status post cholecystectomy. No radiodense calculus or dilation. Pancreas: Normal density, no abnormal calcifications or inflammatory process. Spleen: Normal. Adrenals: No masses seen. Kidneys: Normal size, contour and axis. No radiodense stones or obstructive uropathy. No masses seen. Abdominal Aorta: Abdominal portion non-dilated. Bowel: No obstruction or bowel wall thickening. Appendix is unremarkable. Peritoneal Cavity: No ascites, collection or mesenteric inflammatory response. Lymph Nodes: Within normal limits. Bones: Compression fracture of L4, moderate, increasing when compared with the prior exam of 2021. F racture lines visible at the inferior endplate consistent with acute fracture. Soft Tissues: Unremarkable. PELVIS: Bladder: Symmetric distention, no gross wall thickening. Reproductive Organs: Status post hysterectomy. Lymph Nodes: Within normal limits. Bones: No pelvic fractures. IMPRESSION: 1. No evidence of pulmonary embolism. Lungs not well well evaluated due to respiratory motion. The g round-glass infiltrates not excluded. 2. Moderate L4 compression fracture appears relatively acute. 3. No acute abdominal or pelvic process. RADIATION DOSE DELIVERED: 1671.13 mGy.cm Total DLP DATA REPOSITORY: All CT scans at this facility are submitted to the National Radiology Data Registry (NRDR) Dose Index Registry (DIR) with the [employer] (ACR). RADIATION OPTIMIZATION: All CT scans at this facility use at least one of these dose optimization te chniques: automated exposure control; mA and/or kV adjustment per patient size (includes targeted exa ms where dose is matched to clinical indication); or iterative reconstruction.
[2022-07-22] VITALS (41 sets, daily range): BP systolic 70–145; BP diastolic 41–74; PULSE 63–118; O2SAT 94–99
[2022-07-22] MEDS: Dexamethasone 10 MG/ML VIAL IVP (00:13)
[2022-07-22] MEDS: Ketorolac 30 MG/ML VIAL IVP (00:14)
[2022-07-22] MEDS: diazePAM 5 MG TAB PO (00:14)
[2022-07-22] MEDS: Normal Saline 1,000 ML 1000 ML IV (00:15)
[2022-07-22] MEDS: Lidocaine 5% Patch 1 PATCH TP (00:15)
[2022-07-22 00:34] LABS: Abs Immature Grans 0.05 10^3/uL (0.0-0.06); Absolute Basophil Count 0.06 10^3/uL (0.0-0.2); Absolute Lymphocyte Count 4.69 10^3/uL (1.2-3.4); Absolute Monocyte Count 0.81 10^3/uL (0.1-0.8); Basophils % 0.5; Eosinophils % 3.3; HCT 43.3 % (36.0-46.0); HGB 14.3 g/dL (11.2-15.7); Immature Grans % 0.4; Lymphocytes % 38.3; MCV 91 fL (80-95); MPV 10.7 fL (8.0-11.0); Monocytes % 6.6; Neutrophils % 50.9; Platelet Count 311 10^3/uL (130-400); RBC 4.77 10^6/uL (3.93-5.22); RDW 12.3 % (11.7-14.6); RDW-SD 40.9 fL; WBC 12.25 10^3/uL (4.4-10.8)
[2022-07-22 00:35] LABS: Absolute Neutrophil Count 6.24 10^3/uL (1.2-6.7)
[2022-07-22] MEDS: Omnipaque 350 MG/ML 100 ML BTL IJ (00:36)
[2022-07-22] MEDS: Normal Saline - Diluent 50 ML VIAL IJ (00:37)
[2022-07-22] MEDS: Normal Saline Flush 10 ML SYR IVP (00:37)
[2022-07-22 00:41] LABS: Bilirubin Negative (Negative); Blood Negative (Negative); Clarity Sl Cloudy (Clear); Glucose Negative (Negative); Ketones Negative (Negative); Leukocyte Esterase Negative (Negative); Nitrite Negative (Negative); Urobilinogen 0.2 mg/dL (Up to 0.2)
[2022-07-22 00:54] LABS: ALT 15 U/L (14-59); AST 11 U/L (15-37); Albumin 3.2 g/dL (3.4-5.0); Alkaline Phosphatase 170 U/L (46-116); Anion Gap 7.2 mmol/L (3-11); BUN 14 mg/dL (7-18); Bilirubin, Total 0.3 mg/dL (0.2-1.0); CO2 28.8 mmol/L (21.0-32.0); CREATININE 1.2 mg/dL (0.55-1.02); Calcium 9.4 mg/dL (8.5-10.1); Chloride 101 mmol/L (98-107); Glucose 204 mg/dL (74-106); Lipase 57 U/L (16-77); Potassium 4.3 mmol/L (3.5-5.1); Sodium 137 mmol/L (136-145); Total Protein 7.4 g/dL (6.4-8.2)
--- NOTE | 2022-07-22 01:42 | DI.VRAD_ITS ---
PROCEDURE INFORMATION: Exam: CTA Chest With Contrast Exam date and time: 07/22/2022 12:52 AM Age: 76 years old Clinical indication: Other: Recent pnemonia; Prior surgery; Surgery date: 6+ months; Surgery type: Hernia repair, cholecystectomy, hysterectomy; Patient HX: Lower back pain, recent pneumonia; Additional info: R/O worsening pneumonia/pe/acute abd/lumbar FX TECHNIQUE: Imaging protocol: Computed tomographic angiography of the chest with contrast. 3D rendering (Not supervised by radiologist): MIP and/or 3D reconstructed images were created by the technologist. Radiation optimization: All CT scans at this facility use at least one of these dose optimization techniques: automated exposure control; mA and/or kV adjustment per patient size (includes targeted exams where dose is matched to clinical indication); or iterative reconstruction. Contrast material: OMNIPAQUE 350; Contrast volume: 100 ml; Contrast route: INTRAVENOUS (IV); COMPARISON: CT CHEST PE ABD PELVIS W 05/22/2021 8:47 AM FINDINGS: Pulmonary arteries: Normal. No pulmonary emboli. Aorta: Unremarkable. No aortic aneurysm. No aortic dissection. Lungs: Patchy areas of interstitial infiltrates scattered throughout both lungs appears similar to the previous study, suggesting chronic pulmonary interstitial changes. Pleural spaces: Unremarkable. No pneumothorax. No pleural effusion. Heart: Unremarkable. No cardiomegaly. No pericardial effusion. Lymph nodes: Unremarkable. No enlarged lymph nodes. Bones/joints: There is chronic compression of the T10 vertebra. Significant degenerative disc changes noted throughout thoracic spine. Old, healed bilateral rib fractures noted. Soft tissues: Unremarkable. Other findings: Study is limited by patient motion. IMPRESSION: Persistent bilateral pulmonary infiltrates, similar to the previous study. PROCEDURE INFORMATION: Exam: CT Abdomen And Pelvis With Contrast Exam date and time: 07/22/2022 12:52 AM Age: 76 years old Clinical indication: Other: Recent pnemonia; Prior surgery; Surgery date: 6+ months; Surgery type: Hernia repair, cholecystectomy, hysterectomy; Patient HX: Lower back pain, recent pneumonia; Additional info: R/O worsening pneumonia/pe/acute abd/lumbar FX TECHNIQUE: Imaging protocol: Computed tomography of the abdomen and pelvis with contrast. Radiation optimization: All CT scans at this facility use at least one of these dose optimization techniques: automated exposure control; mA and/or kV adjustment per patient size (includes targeted exams where dose is matched to clinical indication); or iterative reconstruction. Contrast material: OMNIPAQUE 350; Contrast volume: 100 ml; Contrast route: INTRAVENOUS (IV); COMPARISON: CT CHEST PE ABD PELVIS W 05/22/2021 8:47 AM FINDINGS: Liver: Normal. No mass. Gallbladder and bile ducts: Gallbladder is surgically absent. Pancreas: Normal. No ductal dilation. Spleen: Normal. No splenomegaly. Adrenal glands: There is stable mild bilateral adrenal nodularity. Kidneys and ureters: Normal. No hydronephrosis. Stomach and bowel: Unremarkable. No obstruction. No mucosal thickening. Appendix: No evidence of appendicitis. Intraperitoneal space: Unremarkable. No free air. No significant fluid collection. Vasculature: Unremarkable. No abdominal aortic aneurysm. Lymph nodes: Unremarkable. No enlarged lymph nodes. Urinary bladder: Unremarkable as visualized. Reproductive: Uterus is surgically absent. No adnexal abnormality. Bones/joints: Moderate degenerative changes in the spine and shoulders noted. Soft tissues: Unremarkable. IMPRESSION: No acute abnormality evident Dictated and Authenticated by: Ye Anna MD. Ordering:JESSA Shaikh MD
--- NOTE | 2022-07-22 01:51 | DI.VRAD_ITS ---
PROCEDURE INFORMATION: Exam: CT Thoracic Spine Without Contrast Exam date and time: 07/22/2022 12:52 AM Age: 76 years old Clinical indication: Patient HX: Low back pain, recons of spine TECHNIQUE: Imaging protocol: Computed tomography of the thoracic spine without contrast. Radiation optimization: All CT scans at this facility use at least one of these dose optimization techniques: automated exposure control; mA and/or kV adjustment per patient size (includes targeted exams where dose is matched to clinical indication); or iterative reconstruction. COMPARISON: CT CHEST PE ABD PELVIS W 05/22/2021 8:47 AM FINDINGS: Bones/joints: There is accentuated thoracic kyphosis. There is significant chronic appearing compression of the T10 vertebra. No definite acute fracture. Significant multilevel degenerative disc changes are noted. There is mild rightward convexity of the thoracic spine. Soft tissues: Unremarkable. Lungs: Patchy infiltrates noted throughout both lungs, similar to prior studies. IMPRESSION: Chronic appearing compression fracture of T10 which appears similar to previous. Other incidental findings as noted. PROCEDURE INFORMATION: Exam: CT Lumbar Spine Without Contrast Exam date and time: 07/22/2022 12:52 AM Age: 76 years old Clinical indication: Patient HX: Low back pain, recons of spine TECHNIQUE: Imaging protocol: Computed tomography of the lumbar spine without contrast. Radiation optimization: All CT scans at this facility use at least one of these dose optimization techniques: automated exposure control; mA and/or kV adjustment per patient size (includes targeted exams where dose is matched to clinical indication); or iterative reconstruction. COMPARISON: CT CHEST PE ABD PELVIS W 05/22/2021 8:47 AM FINDINGS: Bones/joints: There is moderate compression of the L4 vertebra with evidence of acute fracture lines involving inferior endplate. No retropulsion of fragments or significant spinal stenosis. Moderate degenerative changes noted throughout the lumbar spine. Soft tissues: Unremarkable. IMPRESSION: Relatively acute appearing compression fracture of L4. No significant retropulsion of fragments or spinal stenosis. Dictated and Authenticated by: Ye Anna MD. Ordering:JESSA Shaikh MD
--- NOTE | 2022-07-22 03:54 | NUR.NOTE ---
@[phone]- attempted to contact pt's next of kin w/ no answer. Unable to leave message. Will try to call again.
--- NOTE | 2022-07-22 04:09 | NUR.NOTE ---
Patient presented to the ED on july 21 at approximately 2340. Patient had 3 relatives with her. Patient home clothing was removed and shoes. When shoes was removed, multiply x multiple baby roaches were noted coming from her shoes. When patient was asked if she is aware of insects in her clothing she confirmed knowing this.
--- NOTE | 2022-07-22 06:38 | NUR.NOTE ---
Patient was administered tramadol 50mg x1. Also 1 tablet remain in the container to be sent home with patient as per order by .
--- NOTE | 2022-07-23 10:33 | PDOC.CMACT ---
Date of service: 07/23/22 Time of Service: 10:33 Care Management Activity Note Activity Note Text Activity Note Text: Philomena is seen in the ED for a lumbar compression fracture. At the request of ED provider, BRI coordinates a referral to [facility] to assist Philomena in obtaining an appointment for further evaluation and treatment. She has [facility] [place] and Medicaid for insurance.
== END 2022-07-22 07:38 | disposition home or self-care (01) ==
PROVIDERS: Emergency Provider Physician Assistant; PCP Family Medicine
DX: M48.56XA Collapsed vertebra, not elsewhere classified, lumbar region, initial encounter for fracture (principal); M54.59 Other low back pain; E11.9 Type 2 diabetes mellitus without complications; I48.92 Unspecified atrial flutter; J18.9 Pneumonia, unspecified organism; R91.8 Other nonspecific abnormal finding of lung field
CPT/HCPCS: 71275; 74177; 80053; 83690; 96361; 96374; 96375; 99284; 99285; 72128; 72131; 81003; 85025; J1100; J1885; J3490

== ENCOUNTER 2022-07-26 01:24 | Emergency (ER) | payer OTHER, MEDICAID, SELFPAY ==
[2022-07-26] VITALS (40 sets, daily range): BP systolic 93–205; BP diastolic 49–169; PULSE 67–157; RESP 12–30; TEMP 36.8–36.9; O2SAT 92–99
--- NOTE | 2022-07-26 01:15 | RT.EKG_ITS ---
APPROVED REPORT Exam: Resting ECG Reason for Exam: chest pain Patient Location: E HR:86 bpm ECG Measurements Heart Rate 86 AXIS MN [id number] P [id number] QRSd 101 QRS -5 QT 378 T -10 QTc 452 Conclusion Atrial flutter...A-rate 306 Inferior infarct, old...Q >35mS, II III aVF Narrow complex, regular, ? NSR vs AF
--- NOTE | 2022-07-26 01:30 | DI.CT_ITS ---
Exam(s) CT THORAX ABD/PEL CTA EXAM: CT THORAX ABD/PEL CTA CLINICAL HISTORY: sudden onset sharp CP radiating into back. TECHNIQUE: Imaging Protocol: Axial computed tomography images with coronal and sagittal reformatted images were created and reviewed CONTRAST MATERIAL: Intravenous: Omnipaque 350 Contrast volume:125 ml Oral: no COMPARISON: CT CT CHEST PE ABD PELVIS W from 07/22/[address] THORACIC LUMBAR SPINE WO from 07/22/2022 CR,XR XR PORTABLE CHEST AP from 07/26/2022 FINDINGS: CHEST: Tracheobronchial tree: Patent where visualized. Pulmonary parenchyma: Severely limited evaluation due to respiratory motion. Dependent changes. No consolidation or dominant measurable mass. Pleura: No effusion or pneumothorax. Lymph nodes: Within normal limits. Aorta: Thoracic portion non-dilated. Small atherosclerotic changes. Heart: Not dilated. No pericardial effusion. Bones: Degenerative changes.. No lytic or blastic lesions.Old sternal fracture. Old T10 compression fracture. Old bilateral rib fractures. ABDOMEN: Liver: Normal density. No measurable mass. Gallbladder and biliary tract: Status post cholecystectomy. No radiodense calculus or dilation. Pancreas: Normal density, no abnormal calcifications or inflammatory process. Spleen: Normal. Kidneys: Normal size, contour and axis. No radiodense stones or obstructive uropathy. No suspicious m asses seen. Adrenal glands: No masses seen. Aorta: Abdominal portion non-dilated. Minimal atherosclerotic changes. Lymph nodes: Within normal limits. Soft tissues: Unremarkable. PELVIS: Bladder: Symmetric distention, no gross wall thickening. Bowel: No obstruction or bowel wall thickening. Peritoneal cavity: No ascites, collection or mesenteric inflammatory response. Bones: L4 compression fracture, unchanged from prior. Reproductive organs: Status post hysterectomy. IMPRESSION: No acute abnormality in the chest, abdomen or pelvis.. Lungs not well evaluated due to respiratory motion. Old compression fractures thoracic and lumbar spine. Old sternal and rib fractures.. No evidence of acute fracture. RADIATION DOSE DELIVERED: 1,187.82mGy.cm Total DLP DATA REPOSITORY: All CT scans at this facility are submitted to the National Radiology Data Registry (NRDR) Dose Index Registry (DIR) with the [employer] (ACR). RADIATION OPTIMIZATION: All CT scans at this facility use at least one of these dose optimization te chniques: automated exposure control; mA and/or kV adjustment per patient size (includes targeted exa ms where dose is matched to clinical indication); or iterative reconstruction.
--- NOTE | 2022-07-26 01:30 | RT.EKG_ITS ---
APPROVED REPORT Exam: Resting ECG Reason for Exam: CP Patient Location: E HR:81 bpm ECG Measurements Heart Rate 81 AXIS TX 169 P 52 QRSd 103 QRS 3 QT 422 T -8 QTc 491 Conclusion Sinus rhythm...normal P axis, V-rate 60- 99 Inferior infarct, age indeterminate...Q>35mS, T neg, II III aVF
--- NOTE | 2022-07-26 01:30 | DI.RAD_ITS ---
Exam(s) XR PORTABLE CHEST AP EXAM: XR PORTABLE CHEST AP CLINICAL HISTORY: CP TECHNIQUE: 2D digital imaging was performed. COMPARISON: CR XR CHEST 2V PA LATERAL from 07/15/[address] CHEST PE ABD PELVIS W from 07/22/2022 FINDINGS: Exam limited by poor pulmonary inflation. Leads overlie the chest. LUNGS: Fibrotic changes. No gross focal infiltrate. No pleural abnormality seen. HEART: Appears enlarged although difficult assessed expiratory changes and portable technique.. AORTA: Normal diameter. BONES: Unremarkable for age. Soft tissues: Unremarkable. IMPRESSION: Limited exam. No acute findings. DATA REPOSITORY: RADIATION DOSE DELIVERED:
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
[2022-07-26 01:43] LABS: Abs Immature Grans 0.03 10^3/uL (0.0-0.06); Absolute Basophil Count 0.04 10^3/uL (0.0-0.2); Absolute Eosinophil Count 0.41 10^3/uL (0.0-0.7); Absolute Lymphocyte Count 4.13 10^3/uL (1.2-3.4); Absolute Monocyte Count 0.66 10^3/uL (0.1-0.8); Absolute Neutrophil Count 4.94 10^3/uL (1.2-6.7); Basophils % 0.4; HCT 42.2 % (36.0-46.0); HGB 14.2 g/dL (11.2-15.7); Immature Grans % 0.3; Lymphocytes % 40.5; MCH 30.6 pg (27.0-33.0); MCHC 33.6 % (32.0-36.0); MCV 91 fL (80-95); MPV 10.3 fL (8.0-11.0); Monocytes % 6.5; Neutrophils % 48.3; Platelet Count 272 10^3/uL (130-400); RBC 4.64 10^6/uL (3.93-5.22); RDW 12.6 % (11.7-14.6); WBC 10.21 10^3/uL (4.4-10.8)
[2022-07-26 01:46] LABS: BE (Venous) 2 mmol/L (-2-3); HCO3 (Venous) 27 mmol/L (23-28); O2 Sat (Venous) 79 %; TCO2 (Venous) 24 mmol/L (24-29); pCO2 (Venous) 43 mmHg (41-51); pH (Venous) 7.41 (7.31-7.41); pO2 (Venous) 42 mmHg
[2022-07-26] MEDS: Normal Saline Flush 10 ML SYR IVP (01:57)
[2022-07-26] MEDS: Normal Saline 1,000 ML 1000 ML IV (01:57)
[2022-07-26] MEDS: HYDROmorphone 2 MG/ML SYR 1 MG IVP (01:58)
[2022-07-26] MEDS: Normal Saline - Diluent 50 ML VIAL IJ (01:58)
[2022-07-26 02:18] LABS: ALT 16 U/L (14-59); AST 9 U/L (15-37); Alkaline Phosphatase 171 U/L (46-116); BUN 13 mg/dL (7-18); Bilirubin, Total 0.5 mg/dL (0.2-1.0); CREATININE 0.9 mg/dL (0.55-1.02); Calcium 8.9 mg/dL (8.5-10.1); Chloride 103 mmol/L (98-107); Estimated GFR 67.08 (mL/min/1.73m2); Glucose 193 mg/dL (74-106); Lipase 21 U/L (16-77); Potassium 4.2 mmol/L (3.5-5.1); Sodium 138 mmol/L (136-145); Troponin I < 50 ng/L (<or=60)
[2022-07-26] MEDS: Omnipaque 350 MG/ML 100 ML BTL IJ (02:20)
--- NOTE | 2022-07-26 02:23 | SUR.PHASEI ---
pt returned from radiology s/p cta
[2022-07-26] MEDS: Methocarbamol 500 MG TAB PO (03:12)
[2022-07-26] MEDS: ACETAMINOPHEN 1,000 MG/100 ML BTL 250 MG (03:13)
--- NOTE | 2022-07-26 03:17 | DI.VRAD_ITS ---
PROCEDURE INFORMATION: Exam: XR Chest Exam date and time: 07/26/2022 1:43 AM Age: 76 years old Clinical indication: Chest pressure; Patient HX: Chest pain TECHNIQUE: Imaging protocol: Radiologic exam of the chest. Views: 1 view. COMPARISON: CR XR CHEST 2V PA LATERAL 07/15/2022 4:41 PM FINDINGS: Lungs: stable bilateral infiltrate. Pleural spaces: Unremarkable. No pleural effusion. No pneumothorax. Heart/Mediastinum: Unremarkable. No cardiomegaly. Bones/joints: Unremarkable. IMPRESSION: No significant interval change. Dictated and Authenticated by: Amanuel Sandhu MD. Ordering:NISHANT Hyman MD
--- NOTE | 2022-07-26 04:20 | DI.VRAD_ITS ---
PROCEDURE INFORMATION: Exam: CTA Chest With Contrast CTA Abdomen and Pelvis With Contrast Exam date and time: 07/26/2022 2:15 AM Age: 76 years old Clinical indication: Other: Sudden onset sharp chest pain radiating into back; Abdominal pain TECHNIQUE: Imaging protocol: Computed tomographic angiography of the chest with contrast. Computed tomographic angiography of the abdomen and pelvis with contrast. 3D rendering (Not supervised by radiologist): MIP and/or 3D reconstructed images were created by the technologist. Contrast material: OMNIPAQUE 350; Contrast volume: 125 ml; Contrast route: INTRAVENOUS (IV); COMPARISON: CT CHEST PE ABD PELVIS W 07/22/2022 12:52 AM FINDINGS: VASCULATURE: Pulmonary arteries: Normal. No pulmonary emboli. Aorta: No aortic aneurysm. No aortic dissection. Celiac trunk and mesenteric arteries: No occlusion or significant stenosis. Renal arteries: No occlusion or significant stenosis. Right iliac arteries: No occlusion or significant stenosis. Left iliac arteries: No occlusion or significant stenosis. CHEST: Lungs: Unremarkable. No consolidation. No masses. Pleural spaces: Unremarkable. No pneumothorax. No pleural effusion. Heart: Unremarkable. No cardiomegaly. No pericardial effusion. ABDOMEN AND PELVIS: Liver: No mass. Gallbladder and bile ducts: Status post cholecystectomy. Pancreas: Unremarkable. No mass. No ductal dilation. Spleen: Unremarkable. No splenomegaly. Adrenal glands: Unremarkable. No mass. Kidneys and ureters: Unremarkable. No solid mass. No hydronephrosis. Stomach and bowel: Unremarkable. No obstruction. No mucosal thickening. Appendix: No evidence of appendicitis. Intraperitoneal space: Unremarkable. No free air. No significant fluid collection. Urinary bladder: Unremarkable. No mass. Reproductive: Status post hysterectomy. Lymph nodes: Unremarkable. No enlarged lymph nodes. Bones/joints: Unremarkable. No acute fracture. Soft tissues: Unremarkable. IMPRESSION: No acute finding. Dictated and Authenticated by: Amanuel Sandhu MD. Ordering:NISHANT Hyman MD
[2022-07-26 04:25] LABS: Troponin I < 50 ng/L (<or=60)
[2022-07-26] MEDS: Normal Saline 500 ML IV (05:36)
--- NOTE | 2022-07-27 08:22 | NUR.NOTE ---
Nursing Note: Accessed patient chart to determine how many EKG orders were in the chart from the ED. There was an outstanding EKG in ordered status. There are no EKG's in the [employer] system that are outstanding. EKG order was deleted.
== END 2022-07-26 08:31 | disposition home or self-care (01) ==
PROVIDERS: Emergency Provider Emergency Medicine; PCP Family Medicine
DX: R07.9 Chest pain, unspecified (principal); M54.59 Other low back pain; G89.29 Other chronic pain; Z99.81 Dependence on supplemental oxygen; F81.9 Developmental disorder of scholastic skills, unspecified; R42 Dizziness and giddiness
CPT/HCPCS: 71275; 80053; 82805; 83690; 93005; 96361; 96374; 99285; 71045; 74174; 83735; 84484; 85025; 93010; 99284; J0131; J1170; J3490

== ENCOUNTER 2022-07-29 08:39 | Emergency (ER) | payer OTHER, MEDICAID, SELFPAY ==
[2022-07-29 08:45] VITALS: BP 131/69; PULSE 74; O2SAT 96
[2022-07-29 08:52] VITALS: RESP 18
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
[2022-07-29 09:08] VITALS: O2SAT 96
[2022-07-29] MEDS: Dexamethasone 10 MG/ML VIAL PO (09:08)
[2022-07-29] MEDS: Albuterol/Ipratropium 3 ML UPD VIAL UPD (09:08)
[2022-07-29 09:25] VITALS: PULSE 68; O2SAT 97
[2022-07-29 09:28] VITALS: PULSE 68; O2SAT 97
== END 2022-07-29 10:29 | disposition home or self-care (01) ==
PROVIDERS: Emergency Provider Emergency Medicine; PCP Family Medicine
DX: R06.02 Shortness of breath (principal); M54.6 Pain in thoracic spine
CPT/HCPCS: 99283; J1100; J7620

== ENCOUNTER 2022-07-30 10:25 | Emergency (ER) | payer OTHER, MEDICAID, SELFPAY ==
[2022-07-30] VITALS (24 sets, daily range): BP systolic 106–151; BP diastolic 64–103; PULSE 63–145; RESP 15–28; O2SAT 94–100
--- NOTE | 2022-07-30 10:30 | RT.EKG_ITS ---
APPROVED REPORT Exam: Resting ECG Reason for Exam: SOB Patient Location: E HR:69 bpm ECG Measurements Heart Rate 69 AXIS OK 211 P 56 QRSd 99 QRS -8 QT 412 T 0 QTc 439 Conclusion Sinus rhythm...normal P axis, V-rate 60- 99 Ventricular premature complex...V complex w/ short R-R interval Aberrant conduction of SV complex(es)...aberrant shape, OK 80-220 Inferior infarct, old...Q >35mS, II III aVF
--- NOTE | 2022-07-30 10:45 | DI.RAD_ITS ---
Exam(s) XR PORTABLE CHEST AP EXAM: XR PORTABLE CHEST AP CLINICAL HISTORY: shortness of breath TECHNIQUE: 2D digital imaging was performed of the chest. One image was obtained. An AP view was ob tained. COMPARISON: CR,XR XR PORTABLE CHEST AP from 07/26/2022 FINDINGS: There is poor inspiration. MEDIASTINUM: Normal. HEART: Normal. PULMONARY VASCULATURE: Normal. LUNGS: There is been some interval improvement in the appearance of the left lung which appears to be better aerated. No new infiltrates are seen. PLEURAL SPACE: No pleural effusion or pneumothorax. BONE:Within normal limits for the patient's age. OTHER FINDINGS:Normal. IMPRESSION: Slight improvement in the appearance of the lungs. No worsening of the chest x-ray. DATA REPOSITORY: RADIATION DOSE DELIVERED:
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
[2022-07-30 11:07] LABS: Abs Immature Grans 0.03 10^3/uL (0.0-0.06); Absolute Basophil Count 0.03 10^3/uL (0.0-0.2); Absolute Eosinophil Count 0.01 10^3/uL (0.0-0.7); Absolute Monocyte Count 0.66 10^3/uL (0.1-0.8); Absolute Neutrophil Count 6.11 10^3/uL (1.2-6.7); Basophils % 0.3; Eosinophils % 0.1; HCT 37.5 % (36.0-46.0); HGB 12.5 g/dL (11.2-15.7); Immature Grans % 0.3; Lymphocytes % 29.8; MCH 30.4 pg (27.0-33.0); MCHC 33.3 % (32.0-36.0); MCV 91 fL (80-95); MPV 10.1 fL (8.0-11.0); Monocytes % 6.8; Neutrophils % 62.7; Platelet Count 244 10^3/uL (130-400); RBC 4.11 10^6/uL (3.93-5.22); RDW 12.6 % (11.7-14.6); RDW-SD 41.6 fL; WBC 9.74 10^3/uL (4.4-10.8)
[2022-07-30] MEDS: Albuterol/Ipratropium 3 ML UPD VIAL UPD (11:27)
[2022-07-30 11:29] LABS: Magnesium 2.1 mg/dL (1.8-2.4)
[2022-07-30 11:35] LABS: ALT 15 U/L (14-59); AST 9 U/L (15-37); Albumin 2.9 g/dL (3.4-5.0); Alkaline Phosphatase 146 U/L (46-116); Anion Gap 8.2 mmol/L (3-11); BUN 16 mg/dL (7-18); Bilirubin, Total 0.5 mg/dL (0.2-1.0); CO2 27.8 mmol/L (21.0-32.0); CREATININE 0.8 mg/dL (0.55-1.02); Chloride 106 mmol/L (98-107); Estimated GFR 77.27 (mL/min/1.73m2); Glucose 162 mg/dL (74-106); Potassium 4.3 mmol/L (3.5-5.1); Sodium 142 mmol/L (136-145); Total Protein 6.6 g/dL (6.4-8.2); Troponin I < 50 ng/L (<or=60)
--- NOTE | 2022-07-30 15:07 | CMACTNOTE_ITS ---
Date of service: 07/30/22 Time of Service: 15:07 Care Management Activity Note Activity Note Text Activity Note Text: Philomena presents in the ED via EMS for the third time this week. EMS staff report that her residence is infested with cockroaches and that the mobile home is in such disrepair that they feared falling through the floor. A review of her medical chart reveals that Philomena lives in [facility] with her sister, Chantal, and Chantal's family. Philomena has [facility] High/Highest Needs, Lizbeth Landon is her child support case officer, and her sister, Chantal, is her paid caregiver. CM calls [facility] to discuss concerns re living conditions and speaks with Beulah Phan, as Lizbeth Navarrete is off today. CM also speaks with Mary Jo, Psychological Anthropologist at patient's PCP's office, in addition to Rina at [facility] to make them aware of the concerns and to enlist their assistance in ensuring patient's safety at home. Lastly, CM files an APS report (Intake Number [id number]).
== END 2022-07-30 13:21 | disposition home or self-care (01) ==
PROVIDERS: Emergency Provider Emergency Medicine; PCP Family Medicine
DX: R06.02 Shortness of breath (principal)
CPT/HCPCS: 36415; 80053; 93005; 99284; 71045; 83735; 84484; 85025; 93010; J7620

== ENCOUNTER 2022-08-12 18:34 | Emergency (ER) | payer OTHER, MEDICAID, SELFPAY ==
[2022-08-12] VITALS (21 sets, daily range): BP systolic 120–149; BP diastolic 81–118; PULSE 100–154; RESP 1–36; TEMP 37; O2SAT 89–98
--- NOTE | 2022-08-12 18:30 | RT.EKG_ITS ---
APPROVED REPORT Exam: Resting ECG Reason for Exam: CHEST PAIN Patient Location: E HR:97 bpm ECG Measurements Heart Rate 97 AXIS LA 140 P 61 QRSd 114 QRS 2 QT 359 T -69 QTc 457 Conclusion Sinus rhythm...normal P axis, V-rate 60- 99 Probable left ventricular hypertrophy...(RaVL+SV3)xQRSd >300 Inferior infarct, age indeterminate...Q>35mS, T neg, II III aVF Rhythm motion artifact, no stemi
[2022-08-12 20:59] LABS: Abs Immature Grans 0.04 10^3/uL (0.0-0.06); Absolute Basophil Count 0.05 10^3/uL (0.0-0.2); Absolute Eosinophil Count 0.31 10^3/uL (0.0-0.7); Absolute Monocyte Count 0.98 10^3/uL (0.1-0.8); Basophils % 0.4; Eosinophils % 2.5; HCT 43.5 % (36.0-46.0); HGB 14.9 g/dL (11.2-15.7); Immature Grans % 0.3; MCH 31.2 pg (27.0-33.0); MCHC 34.3 % (32.0-36.0); MCV 91 fL (80-95); MPV 9.9 fL (8.0-11.0); Monocytes % 7.8; Platelet Count 293 10^3/uL (130-400); RBC 4.78 10^6/uL (3.93-5.22); RDW 12.6 % (11.7-14.6); RDW-SD 41.7 fL; WBC 12.59 10^3/uL (4.4-10.8)
[2022-08-12] MEDS: Albuterol 2.5 MG/3 ML INH SOLN VIAL UPD (21:00)
[2022-08-12 21:05] LABS: Absolute Lymphocyte Count 3.53 10^3/uL (1.2-3.4); Absolute Neutrophil Count 7.68 10^3/uL (1.2-6.7)
--- NOTE | 2022-08-12 21:15 | DI.RAD_ITS ---
Exam(s) XR CHEST 2V PA LATERAL EXAM: XR CHEST 2V PA LATERAL CLINICAL HISTORY: cough and shortness of breath. TECHNIQUE: 2D digital imaging was performed. COMPARISON: CT CT THORAX ABD/PEL CTA from 07/26/2022 CR XR PORTABLE CHEST AP from 07/30/2022 FINDINGS: 2 views: Heart size upper normal. Mediastinum not widened. Appearance of both lung sumner unchanged from 07/30/2022. There is some persistent infiltrate in the left lower lobe retrocardiac region. Slight blunting of the right costophrenic angle probably small pleural effusion. Increased markings in the right upper lobe are also unchanged. IMPRESSION: No radiographic change. If clinically indicated follow-up CT scan can be performed for added sensiti vity/specificity. DATA REPOSITORY: RADIATION DOSE DELIVERED:
[2022-08-12 21:18] LABS: ALT 17 U/L (14-59); AST 14 U/L (15-37); Albumin 3.6 g/dL (3.4-5.0); Alkaline Phosphatase 222 U/L (46-116); Anion Gap 8.1 mmol/L (3-11); BUN 7 mg/dL (7-18); Bilirubin, Total 0.5 mg/dL (0.2-1.0); CO2 29.9 mmol/L (21.0-32.0); CREATININE 0.9 mg/dL (0.55-1.02); Calcium 9.2 mg/dL (8.5-10.1); Chloride 105 mmol/L (98-107); Estimated GFR 67.08 (mL/min/1.73m2); Glucose 190 mg/dL (74-106); Potassium 4.1 mmol/L (3.5-5.1); Sodium 143 mmol/L (136-145); Total Protein 8.1 g/dL (6.4-8.2); Troponin I < 50 ng/L (<or=60)
--- NOTE | 2022-08-12 22:00 | DI.VRAD_ITS ---
PROCEDURE INFORMATION: Exam: XR Chest Exam date and time: 08/12/2022 21:40 Age: 76 years old Clinical indication: Cough and shortness of breath TECHNIQUE: Imaging protocol: Radiologic exam of the chest. Views: 2 views. COMPARISON: CR XR PORTABLE CHEST AP 07/30/2022 11:19 FINDINGS: Lungs: Linear bibasilar opacities. The lungs appear hyperinflated. Pleural spaces: No pleural effusion. No pneumothorax. Heart/Mediastinum: No significant cardiomegaly for position and projection. Bones/joints: Chronic healed right rib deformities. Exaggerated thoracic kyphosis. No displaced fracture. IMPRESSION: Basilar subsegmental atelectasis. Dictated and Authenticated by: Dana Bowles MD. Ordering:MAK Salazar MD
[2022-08-12] MEDS: Albuterol/Ipratropium 3 ML UPD VIAL UPD (22:14)
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
--- NOTE | 2022-08-12 22:39 | NUR.NOTE ---
Pt placed on referral to primary care for cough and SOB within a weeks times per Martir Moreno
[2022-08-12] MEDS: Azithromycin 250 MG TAB 500 MG PO (22:41)
== END 2022-08-12 23:00 | disposition home or self-care (01) ==
PROVIDERS: Emergency Provider Nurse Practitioner Family; PCP Family Medicine
DX: R06.02 Shortness of breath (principal); F20.9 Schizophrenia, unspecified; G24.01 Drug induced subacute dyskinesia; R07.9 Chest pain, unspecified; J45.909 Unspecified asthma, uncomplicated; E11.9 Type 2 diabetes mellitus without complications
CPT/HCPCS: 80053; 93005; 94640; 99283; 71046; 83735; 84484; 85025; 93010; J7613; J7620

== ENCOUNTER 2022-09-11 10:11 | Emergency (ER) | payer OTHER, MEDICAID, SELFPAY ==
[2022-09-11 10:25] VITALS: BP 124/79; PULSE 80; RESP 18; TEMP 36.9
--- NOTE | 2022-09-11 11:00 | RT.EKG_ITS ---
APPROVED REPORT Exam: Resting ECG Reason for Exam: rib pain Patient Location: E HR:80 bpm ECG Measurements Heart Rate 80 AXIS CO 190 P 45 QRSd 93 QRS -2 QT 377 T -10 QTc 435 Conclusion Sinus rhythm...normal P axis, V-rate 60- 99 Probable left ventricular hypertrophy...multiple LVH criteria Inferior infarct, age indeterminate...Q>35mS, T neg, II III aVF
[2022-09-11 11:20] LABS: Bilirubin Negative (Negative); Blood Negative (Negative); Clarity Clear (Clear); Glucose Negative (Negative); Ketones Negative (Negative); Leukocyte Esterase Negative (Negative); Nitrite Negative (Negative); Specific Gravity 1.015 (1.005-1.025); Urobilinogen 0.2 mg/dL (Up to 0.2); pH 5.5 (5-8)
[2022-09-11 11:21] LABS: Abs Immature Grans 0.01 10^3/uL (0.0-0.06); Absolute Basophil Count 0.05 10^3/uL (0.0-0.2); Absolute Eosinophil Count 0.34 10^3/uL (0.0-0.7); Absolute Lymphocyte Count 2.92 10^3/uL (1.2-3.4); Absolute Monocyte Count 0.49 10^3/uL (0.1-0.8); Absolute Neutrophil Count 2.75 10^3/uL (1.2-6.7); Basophils % 0.8; Eosinophils % 5.2; HGB 13.6 g/dL (11.2-15.7); Immature Grans % 0.2; Lymphocytes % 44.5; MCH 31.8 pg (27.0-33.0); MCV 94 fL (80-95); MPV 9.8 fL (8.0-11.0); Monocytes % 7.5; Neutrophils % 41.8; Platelet Count 208 10^3/uL (130-400); RBC 4.28 10^6/uL (3.93-5.22); RDW 12.3 % (11.7-14.6); RDW-SD 42.3 fL; WBC 6.56 10^3/uL (4.4-10.8)
[2022-09-11 11:40] LABS: ALT 16 U/L (14-59); AST 15 U/L (15-37); Albumin 2.9 g/dL (3.4-5.0); Alkaline Phosphatase 180 U/L (46-116); Anion Gap 6.1 mmol/L (3-11); BUN 6 mg/dL (7-18); Bilirubin, Total 0.4 mg/dL (0.2-1.0); CO2 29.9 mmol/L (21.0-32.0); CREATININE 0.9 mg/dL (0.55-1.02); Calcium 8.6 mg/dL (8.5-10.1); Chloride 104 mmol/L (98-107); Estimated GFR 66.67 (mL/min/1.73m2); Glucose 159 mg/dL (74-106); Potassium 3.9 mmol/L (3.5-5.1); Sodium 140 mmol/L (136-145); Total Protein 6.6 g/dL (6.4-8.2)
--- NOTE | 2022-09-11 12:28 | DI.CT_ITS ---
Exam(s) CT CHEST/ABD/PEL W EXAM: CT CHEST/ABD/PEL W CLINICAL HISTORY: flank pain, dysuria. TECHNIQUE: Imaging Protocol: Axial computed tomography images with coronal and sagittal reformatted images were created and reviewed CONTRAST MATERIAL: Intravenous: Omnipaque 350 Contrast volume:100 ml Oral: no COMPARISON: CT CT THORAX ABD/PEL CTA from 07/26/2022 CR,XR XR CHEST 2V PA LATERAL from 08/12/2022 FINDINGS: CHEST: Tracheobronchial tree: Patent where visualized. Pulmonary parenchyma: Evaluation limited by motion. Chronic interstitial changes. No consolidation or dominant measurable mass. Pleura: No effusion or pneumothorax. Lymph nodes: Within normal limits. Aorta: Thoracic portion non-dilated. Heart: Mildly enlarged. Bones: Unremarkable for age. No lytic or blastic lesions.Stable severe compression fracture T10. St able mild compression of the T5 and T6 vertebral bodies. New moderate compression fracture of T12.. Old upper sternal fracture. Ribs suboptimally evaluated due to motion. There are a few old rib fr actures noted. ABDOMEN: Exam limited by patient motion particularly in the mid portion of the scan. Liver: Normal density. No measurable mass. Gallbladder and biliary tract: No radiodense calculus or dilation. Pancreas: Normal density, no abnormal calcifications or inflammatory process. Spleen: Normal. Kidneys: Normal size, contour and axis. No radiodense stones or obstructive uropathy. No suspicious m asses seen. Spine: Stable compression fractures of L4 and L5. New mild compression fracture of the superior endplate of L3. New minimal compression of the superior endplate of L2. Adrenal glands: No masses seen. Aorta: Abdominal portion non-dilated. Lymph nodes: Within normal limits. Soft tissues: Unremarkable. PELVIS: Bladder: decompressed by Ortiz catheter. Large quantity of stool from cecum through transverse colon .. Appendix normal. Bowel: No obstruction or bowel wall thickening. Peritoneal cavity: No ascites, collection or mesenteric inflammatory response. Bones: Unremarkable for age.. Reproductive organs: Hysterectomy. IMPRESSION: Multiple thoracic and lumbar compression fractures, some of which are new compared with the prior exa m. No acute pulmonary abnormality. No no acute abdominal or pelvic abnormality. Findings called to Wes of the emergency department. RADIATION DOSE DELIVERED: 1,169.37mGy.cm Total DLP DATA REPOSITORY: All CT scans at this facility are submitted to the National Radiology Data Registry (NRDR) Dose Index Registry (DIR) with the [employer] ([employer]). RADIATION OPTIMIZATION: All CT scans at this facility use at least one of these dose optimization te chniques: automated exposure control; mA and/or kV adjustment per patient size (includes targeted exa ms where dose is matched to clinical indication); or iterative reconstruction.
[2022-09-11] MEDS: Normal Saline - Diluent 50 ML VIAL IV (12:31)
[2022-09-11] MEDS: Omnipaque 350 MG/ML 100 ML BTL IJ (12:31)
[2022-09-11] MEDS: Normal Saline Flush 10 ML SYR IVP (12:34)
--- NOTE | 2022-09-11 14:00 | NUR.NOTE ---
Nursing Note: PT needs PCP follow up within the next week for compression Fxs. Katty, ED
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
== END 2022-09-11 14:47 | disposition home or self-care (01) ==
PROVIDERS: Emergency Provider Physician Assistant; PCP Family Medicine
DX: M48.54XA Collapsed vertebra, not elsewhere classified, thoracic region, initial encounter for fracture (principal); M48.56XA Collapsed vertebra, not elsewhere classified, lumbar region, initial encounter for fracture
CPT/HCPCS: 74177; 80053; 93005; 99285; 71260; 81003; 85025; 93010; 99284; J3490

== ENCOUNTER 2022-09-30 16:35 | Outpatient (REF) | payer OTHER, MEDICAID, SELFPAY ==
[2022-09-30 19:44] LABS: COMMENT (LAB VIEW ONLY) 91.63 mg/dL
== END 2022-09-30 16:36 | disposition home or self-care (01) ==
LOC: NCHCN 16:35
PROVIDERS: PCP Family Medicine; Visit Provider Family Medicine
DX: E11.9 Type 2 diabetes mellitus without complications (principal)
CPT/HCPCS: 82043; 82570

== ENCOUNTER 2022-10-07 02:38 | Outpatient (CLI) | payer OTHER, MEDICAID, SELFPAY ==
--- NOTE | 2022-10-07 15:08 | DI.RAD_ITS ---
Exam(s) RF MODIFIED SPEECH BA SWALLOW TECHNIQUE: Modified barium swallow was performed in conjunction with speech pathology. CONTRAST MATERIAL: Oral barium contrast was administered. COMPARISON: No exams were available for comparison FINDINGS: Note that this is not a dedicated esophagram, distal esophagus not evaluated. There is no evidence of aspiration or penetration of thick or thin liquids, barium coated cracker, ba rium paste and barium tablet. Speech pathology report to follow. IMPRESSION: No evidence of aspiration or penetration. RADIATION DOSE DELIVERED: yvonne Diego=11.3 mGy
--- NOTE | 2022-10-07 15:13 | ST.MBS_ITS ---
Date of Service Date of service: 10/07/22 Time of Service: 14:30 Modified Barium Swallow Study Findings: Video fluoroscopic Swallowing Evaluation (VFSE) / Modified Barium Swallow Study (MBSS) Speech Language Pathology Report Patient referred for VFSE/MBSS from Leti Franz given hx dysphagia on thickened liquids at home. HPI & Patient report of function: Patient is a 77 year old F with PMHx of asthma, tardive dyskinesia and akathesia, IDDM2, schizophrenia. She has presented to the hospital several times with dyspnea/SOB, and has been treated several times for PNA vs URI at [facility]. Additional ED presentations for dyspnea/SOB and discharged without further intervention, with question of anxiety vs asthma exacerbation vs pna. She was evaluated by Eileen Vaughn in 2018 for dysphagia who recommended a pureed/honey thick liquids diet. In 05/2021 she was again hospitalized and evaluated by Lilibeth Mcmillan who recommended the same diet. In 2016 she had an MBSS with no aspiration, possibly ordered because of esophageal symptoms. Documented history of dysphagia and pna is somewhat difficult to follow but it appears that she has had some hospitalizations where PNA was suspected, and others where no consolidations were noted and she was treated simply with respiratory treatments and discharged. There does appear to be one hospitalization where she was given a PEG tube though it is unclear for how long and whether this was the result of an VOLUNTEER SERVICES COORDINATOR placing NPO recommendations vs poor PO intake. At this time, She is on honey thick liquids at home since last VOLUNTEER SERVICES COORDINATOR evaluation by Lilibeth Mcmillan. She eats primarily pureed diet but sometimes will have very soft/chopped solid foods that require minimal to no chewing. She and caregiver deny frequent coughing on liquids or choking, but endorse recent PNA's thought to be possibly result of aspiration per their understanding. She currently takes medications with puree. Patient/caregiver (Sister Chantal) were unable to provide a very cohesive/succinct history of her dysphagia/PNA history and some hesitation about timing of recent PNAs or results of prior MBSS. PFSH All Active Problems?(Updated 09/11/22 @ 14:04 by BE Wyatt) Compression fracture of body of thoracic vertebra (Acute) Compression fracture of lumbar vertebra (Acute) Respiratory failure with hypoxia (Acute) Pulmonary hypertension (Acute) Elevated hemidiaphragm (Acute) Asthma (Acute) Poorly controlled type 2 diabetes mellitus (Acute) Gastrostomy in place (Acute) Granuloma annulare (Acute) Lactose intolerance (Acute) Hiatal hernia (Chronic) Venous insufficiency (Acute) Tremor (Acute) Skin rash (Acute) Chest pain, rule out acute myocardial infarction (Acute) Ileus (Acute) Impaired decision making (Chronic) On tube feeding diet (Chronic) Aspiration pneumonia (Acute) Dysphagia (Chronic) IDDM (insulin dependent diabetes mellitus) (Chronic) Schizophrenia (Chronic) Tardive dyskinesia (Chronic) Ambulatory dysfunction (Acute) S/P percutaneous endoscopic gastrostomy (PEG) tube placement (Acute) Dysphagia causing pulmonary aspiration with swallowing (Chronic) Advance directive discussed with patient (Chronic) Chest pain (Acute) Atrial flutter (Chronic) Ambulatory dysfunction (Chronic) Migraine headache without aura (Chronic) Osteoporosis (Chronic) Type 2 diabetes mellitus (Chronic) Urgency incontinence (Chronic 05/01/15) Sensorineural hearing loss, bilateral (Chronic 01/07/15) Dysphagia, unspecified (Chronic 06/22/16) Medical History? Abnormal CT of the head Acute bronchitis Acute respiratory distress Adenomatous polyp of colon Altered mental status Altered mental status Asthma exacerbation Atrial flutter Arias's esophagus Bipolar disorder Chronic low back pain Cognitive developmental delay Depression with anxiety Developmental delay, borderline Diabetes mellitus type 2, controlled Diastolic heart failure Dysuria GERD (gastroesophageal reflux disease) Hearing loss Hyperlipidemia Hypertension Hypothyroidism Hypoxemia Hypoxia Influenza A Nausea and vomiting Neurogenic bladder Obesity Obstructive sleep apnea C-PAP removed due to noncomplianceOsteoarthritis Palliative care encounter Pneumonia Pneumonia Respiratory failure, unspecified with hypoxia Schizophrenia 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) Tardive dyskinesia (01/26/17) Surgical History? H/O tubal ligation History of cataract surgery History of hernia repair History of hysterectomy with bilateral oophorectomy S/P cholecystectomy Previous Imaging: [pulled from chart if available] [N/A] IMPRESSIONS: Swallow safety is impaired; swallow efficiency is impaired. Moderate chronic oropharyngeal dysphagia. Given GI history, there may also be esophageal component though this was not visualized on today's exam. Dysphagia is characterized primarily by discoordination and delayed pharyngeal onset likely in setting of tardive dyskinesia. Patient also noted to be frequently holding her breath and gasping which appears to go in tandem with her extraneous head movements/vocalizations. Despite this, she is able to demonstrate remarkable airway protection under the circumstances. When she has bolus in her mouth she does appear somewhat able to reduce/control her extraneous movements for several seconds. Patient was provided with moderately thick, mildly thick, and thin liquids. No aspiration of any liquid consistency. Prior to hyoid excursion she had flash penetration of mildly thick liquids and flash penetration, though slightly deeper penetration of thin liquids, penetration events overall occurring approximately 50% of the time with these consistencies, and in every instance the contrast was ejected from the airway by swallow completion due to good laryngeal elevation. Patient also appears with poor epiglottic inversion and reduced anterior hyoid movement resulting in vallecular residue of solids & purees>thick>thin liquids which requires 3-4 (spontaneous) secondary saliva swallows to largely clear. Patient appears to be at moderate risk for potential aspiration PNA and/or pulmonary compromise and moderate risk for malnutrition, moderate risk for dehydration. Diet modification is indicated; non-oral nutrition is not indicated. Swallow prognosis is guarded given: Positive prognostic factors: Family/caregiver support, Negative prognostic factors: Age, Severity, Cognitive status, Impact of dyskenesia and pending patient/caregiver training in risk management as outlined, including use of trialed compensatory strategies. Patient appears to be a fair candidate for behavioral swallow rehabilitation. RECOMMENDATIONS: Diet Texture Recommendation:? IDDSI LEVEL SOLIDS 5-Minced & Moist Solids and 4-Pureed Solids LIQUIDS 2-Mildly Thick Liquids DURING MEALS 0-Thin liquids between meals (WATER ONLY) if excellent oral care has been provided Please see further details at?www.iddsi.org [email or web address].iddsi.org/ MEDICATIONS Whole with 4-Puree Diet texture modification is per patient's preference; please adjust diet textures at patient's discretion & collaboration with care team. Do not alter medications (e.g., cut)? without advice from your MD or pharmacist. Risk Management Strategies:? Behavioral reflux precautions, including upright position during + 90 mins after meals. Small bites, approx [id number] Very small sips, approx 5mL / teaspoon Multiple swallows per bolus to encourage clearance of pharyngeal stasis/residue Control risk factors for aspiration pneumonia via (a) thorough oral hygiene & (b) maintaining physical mobility as tolerated PLAN: Therapy: Strategies, diet recommendations, and risk management protocols were reviewed with patient and caregiver who expressed understanding. Recommend subsequent outpatient session with VOLUNTEER SERVICES COORDINATOR to assess for tolerance and provide reinforcement of recommendations and education within 1-3 months. Not likely a good candidate for oropharyngeal exercise due to cognitive/psych history and dyskinesias. Goals: Patient will tolerate Levels 2/0 Liquids and 4/5 solids without s/sx aspiration. Patient and caregiver will be independent with risk management strategies as outlined above. ----- OBJECTIVE Videofluoroscopic Swallow Evaluation (VFSE/MBSS) was conducted in the lateral projection by Speech-Language Pathologist, in collaboration with Radiologist, to evaluate oropharyngeal swallow function. Anatomic view under fluoroscopy: patient with dyskenesias and frequently throwing head back into posterior position throughout exam due to extraneous movements. Frequently gasping for air or phonating along with extranous movement, appearing to hold breath at times. PO Barium Contrast Trials Oral barium water-soluble contrast was administered as follows: IDDSI Level 0 Varibar thin liquid (40% w/v) IDDSI Level 2 Varibar nectar thick/mildly thick liquid (40% w/v) IDDSI Level 3 Varibar thin honey/liquidised/moderately-thick (40% w/v) IDDSI Level 4 Varibar pudding/pureed/extremely thick (40% w/v) IDDSI Level 7 Regular Solid: 1/2 ileana cracker coated in 3 mL Varibar pudding 13 mm barium tablet taken with Purees. MBSImP Component Scores: COMPONENT Scale SCORE 1 Lip closure (0-4) 3 Resulted in escape progressing to the mid-chin 2 Hold Position (0-3) 2 Resulted in posterior escape of less than half of the bolus 3 Bolus Preparation (0-4) 1 Resulted in slow prolonged chewing/mashing with complete re-collection 4 Bolus Transport (0-4) 1 Demonstrated delayed initiation of tongue motion 5 Oral Residue (0-4) 2 Was a collection on oral structures 6C Swallow Initiation (0-4) 3 Occurred when the bolus head was in the pyriform sinuses 7 Soft Palate Elevation (0-4) 0 Resulted in no bolus between soft palate and t he pharyngeal wall 8 Laryngeal Elevation (0-3) 1 Was decreased with partial superior movement of thyroid cartilage/partial approximation of arytenoids to epiglottic petiole 9 Anterior Hyoid Motion (0-2) 1 Demonstrated partial anterior movement 10 Epiglottic Movement (0-2) 1 Resulted in partial inversion 11 Laryngeal Closure (0-2) 0 Was complete with no air or contrast in laryngeal vestibule 12 Pharyngeal Stripping Wave (0-2) 1 Was present, but diminished 13 Pharyngeal Contraction (0-3) NA DID NOT VISUALIZE 14 PES Opening (0-3) 0 Was completely distended and complete duration with no obstruction of flow 15 Tongue Base Retraction (0-4) 1 Allowed a trace column of contrast or air between tongue base and pharyngeal wall 16 Pharyngeal Residue (0-4) 2 Was a collection of residue within or on pharyngeal structures 17 Esophageal Clearance (0-4) NA DID NOT VISUALIZE Results: COMPONENT Scale SCORE 1 Oral Score (0-18) 9 2 Pharyngeal Score (0-29) 6 3 Esophageal Score (0-4) 0 DID NOT VISUALIZE Penetration-Aspiration Scale: COMPONENT Scale SCORE 1 Thin liquid (1-8) 2 Contrast entered the airway, remained above the vocal folds, and was ejected from the airway. 2 [place] thick (1-8) 2 Contrast entered the airway, remained above the vocal folds, and was ejected from the airway. 3 Honey thick (1-8) 1 Contrast did not enter the airway 4 Pudding thick (1-8) 1 Contrast did not enter the airway 5 Cookie (1-8) 1 Contrast did not enter the airway Trialed Compensatory Strategies & Outcome: Maneuvers Successful (+) Unsuccessful (-) Postures Successful (+) Unsuccessful (-) 3 second Preparatory Set? ? +/- Chin Tuck Posture? - NOT STIMULABLE DUE TO TD ? Cough? ? Posterior Head tilt? Reflexive? Cued? Throat Clear? ? Head Tilt to? Reflexive? Left? Cued? Right? ? Saliva swallow? ? + TO CLEAR VALLECULAR RESIDUE Head Turn/Rotate to? ? E Supraglottic Swallow? Left? ? Super-supraglottic Swallow? Right? ? Bolus Modifications Successful (+) Unsuccessful (-) Delivery/Alternating Consistencies ? Follow with Liquid Wash - ? Follow with Solid Bolus? Delivery/Via Straw? ? Reduced Volume? ? + Reduced Rate of Intake? ? Increased Viscosity? ? + TO REDUCE DEPTH OF PENETRATION Other:?? ? Thank you for allowing us to take part in this patient's care. Please feel free to contact the [facility] Speech Language Pathology Department with any questions/concerns. Coding CPT Codes MOTION FLUOROSCOPY/SWALLOW - [id number] ([id number])
[2022-10-07] MEDS: Barium Sulfate 700 MG TAB PO (15:15)
[2022-10-07] MEDS: Barium Sulfate 81% w/w for Oral Suspension 148 GM BTL 30 GM PO (15:18)
[2022-10-07] MEDS: Barium Sulfate 40% W/V 1500 CPS 250 ML BTL 30 ML PO (15:19)
[2022-10-07] MEDS: Barium Sulfate Oral Paste 40% W/V 230 ML TUBE 30 ML PO (15:21)
[2022-10-07] MEDS: Barium Sulfate 40% W/V 240 ML BTL 30 ML PO (15:21)
== END 2022-10-07 02:58 ==
LOC: DI 02:38
PROVIDERS: PCP Family Medicine; Visit Provider Family Medicine
DX: R13.12 Dysphagia, oropharyngeal phase (principal)
CPT/HCPCS: 92611; 74221

== ENCOUNTER 2022-11-02 13:22 | Observation (INO) | payer OTHER, MEDICAID, SELFPAY ==
[2022-11-02 13:30] VITALS: BP 115/74; PULSE 88; RESP 22; TEMP 36.6; O2SAT 99
--- NOTE | 2022-11-02 14:30 | DI.CT_ITS ---
Exam(s) CT HEAD WO EXAM: CT HEAD WO CLINICAL HISTORY: Confusion. TECHNIQUE: Imaging Protocol: Axial computed tomography images with coronal and sagittal reformatted images were created and reviewed COMPARISON: CT CT HEAD WO from 02/24/2022 FINDINGS: There are no skull fractures. There is no fluid in the visualized paranasal sinuses. There is no evidence of intracranial hemorrhage, mass effect, or shift of midline structures. There are no extra-axial fluid collections. The ventricles are not enlarged or shifted and there is no blo od within the ventricular system nor within the basal cisterns. Mild bilateral periventricular hypodensity again noted consistent chronic small vessel disease. No o bvious acute territorial infarct. IMPRESSION: No new acute intracranial findings on this noninfused CT scan of the brain. Called by myself to ER. RADIATION DOSE DELIVERED: 683.19mGy.cm Total DLP DATA REPOSITORY: All CT scans at this facility are submitted to the National Radiology Data Registry (NRDR) Dose Index Registry (DIR) with the [employer] (A[employer]). RADIATION OPTIMIZATION: All CT scans at this facility use at least one of these dose optimization te chniques: automated exposure control; mA and/or kV adjustment per patient size (includes targeted exa ms where dose is matched to clinical indication); or iterative reconstruction.
--- NOTE | 2022-11-02 14:36 | DI.RAD_ITS ---
Exam(s) XR CHEST 1V IN DI DEPT EXAM: XR CHEST 1V IN DI DEPT CLINICAL HISTORY: Decreased increase activity dysphagia. TECHNIQUE: 2D digital imaging was performed. COMPARISON: CR,XR XR CHEST 2V PA LATERAL from 08/12/2022 FINDINGS: Single AP portable view. Heart size is upper normal. The mediastinum is not widened. Left lung is clear. There are mild increased markings in this suprahilar right upper lobe. No pleural effusions. Multiple healed right-sided rib fractures again noted. No pneumothorax. IMPRESSION: Mild right upper lobe infiltrate suprahilar region. DATA REPOSITORY: RADIATION DOSE DELIVERED:
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
[2022-11-02] MEDS: Normal Saline 500 ML IV (14:52)
[2022-11-02 15:12] LABS: Abs Immature Grans 0.02 10^3/uL (0.0-0.06); Absolute Basophil Count 0.06 10^3/uL (0.0-0.2); Absolute Lymphocyte Count 4.55 10^3/uL (1.2-3.4); Absolute Monocyte Count 0.84 10^3/uL (0.1-0.8); Absolute Neutrophil Count 3.66 10^3/uL (1.2-6.7); Basophils % 0.6; Eosinophils % 3.2; HCT 43.2 % (36.0-46.0); HGB 15.1 g/dL (11.2-15.7); Immature Grans % 0.2; Lymphocytes % 48.3; MCH 31.4 pg (27.0-33.0); MCV 90 fL (80-95); MPV 10.3 fL (8.0-11.0); Monocytes % 8.9; Neutrophils % 38.8; Platelet Count 270 10^3/uL (130-400); RBC 4.81 10^6/uL (3.93-5.22); RDW 11.5 % (11.7-14.6); RDW-SD 37.6 fL; WBC 9.43 10^3/uL (4.4-10.8)
[2022-11-02 15:13] LABS: Bilirubin Negative (Negative); Blood Negative (Negative); Clarity Clear (Clear); Glucose Negative (Negative); Ketones Negative (Negative); Leukocyte Esterase Negative (Negative); Nitrite Negative (Negative); Specific Gravity 1.015 (1.005-1.025); Urobilinogen 0.2 mg/dL (Up to 0.2); pH 5.5 (5-8)
[2022-11-02 15:34] LABS: ALT 18 U/L (14-59); AST 19 U/L (15-37); Albumin 3.4 g/dL (3.4-5.0); Alkaline Phosphatase 182 U/L (46-116); Anion Gap 8.8 mmol/L (3-11); BUN 8 mg/dL (7-18); Bilirubin, Total 0.5 mg/dL (0.2-1.0); CO2 30.2 mmol/L (21.0-32.0); CREATININE 1.1 mg/dL (0.55-1.02); Calcium 9.5 mg/dL (8.5-10.1); Chloride 100 mmol/L (98-107); Creatine Kinase 45 U/L (26-192); Glucose 154 mg/dL (74-106); Potassium 3.3 mmol/L (3.5-5.1); Sodium 139 mmol/L (136-145); Total Protein 7.5 g/dL (6.4-8.2)
[2022-11-02 16:09] VITALS: BP 106/68; PULSE 80; RESP 16; O2SAT 93
--- NOTE | 2022-11-02 16:15 | NUR.NOTE ---
Nursing Note: Chantal (caregiver) left bedside and left home number: [phone] and cell number: [phone]
[2022-11-02 16:50] LABS: Magnesium 2.2 mg/dL (1.8-2.4); TSH (W/Ref FT4) 2.29 uIU/mL (0.36-3.74)
--- NOTE | 2022-11-02 17:51 | W.EDPROG ---
Date of service: 11/02/22 Time of Service: 19:54 Medical Decision Making Received pt in sign out pending imaging, neg CT, cxr with ?hazy infil, but no wbc and not hypoxic so seems less likely I spoke to the hospitalist, reviewed with house sup, can admit obs for Failure to Thrive. I attempted to contact sister to verify code status, number is out of service. Sign Out Sign Out Data: Sign Out Comment: Please follow-up CT, chest x-ray, TSH and speak with hospitalist for hospitalization given change in mental status and failure to thrive at home. Last updated by Edwardo Dumont MD at 11/02/22 16:43 Discharge Plan Disposition Patient Disposition: [facility] to [facility] Condition: Stable Discharge Details Clinical Impression: Decreased activity, Hx of falling, Acute encephalopathy Primary Care Provider: Leti Franz ED Provider: Delano Deleon Home Meds and New Rx's Prescriptions: No Action ziprasidone HCl 20 mg capsule 20 mg PO QHS Rx Instructions: give with food (meal/snack) simvastatin [Zocor] 20 mg tablet 20 mg PO QHS aspirin [Jovon Chewable Aspirin] 81 mg tablet,chewable 81 mg PO DAILY levothyroxine 112 MCG tablet 112 mcg PO DAILY escitalopram oxalate 20 mg tablet 20 mg PO DAILY propranolol 20 mg Tablet 20 mg PO TID dexlansoprazole [Dexilant] 30 mg capsule,biphase delayed releas 60 mg PO DAILY insulin glargine [Basaglar KwikPen U-100 Insulin] 100 unit/mL (3 mL) insulin pen 15 unit SUBCUT BID Patient Comments: INJECT 40 UNITS UNDER SKIN TWO TIMES A DAY albuterol sulfate 90 mcg/actuation HFA aerosol inhaler 2 puff inhalation Q6H PRN (Reason: shortness of breath or wheezing) Qty: 8.5 0RF clonazepam [Klonopin] 1 mg tablet 0.5 mg PO HS Patient Comments: TAKE ONE TABLET BY MOUTH AT BEDTIME budesonide-formoterol [Symbicort] 160-4.5 mcg/actuation Hfa Aerosol Inhaler 2 puff inhalation BID Qty: 10.2 0RF prazosin 2 mg capsule 2 mg PO HS Patient Comments: TAKE ONE CAPSULE BY MOUTH AT BEDTIME furosemide 20 mg Tablet 20 mg PO DAILY Qty: 30 0RF Trulicity 3 mg/0.5 mL pen injector 3 mg SUBCUT QWEEK Patient Comments: INJECT 3MG UNDER SKIN ONCE A WEEK melatonin 3 mg Tablet 3 mg PO HS PRN (Reason: Sleep) acetaminophen 500 mg Tablet 1,000 mg PO TID PRN PRNQty: 60 0RF Patient Comments: not taking per med list 11/02/22 insulin aspart U-100 [Novolog FlexPen U-100 Insulin] 100 unit/mL Insulin Pen 0 unit subcut AC & HS Qty: 0 0RF Rx Instructions: 6 units for 100-140, 8 units for 141-180,10 units 181-220, 12 units 221-360, 14 units 261-300, 16 units for 301-350, 18 units for over 350...also take 4 units with cup of ice cream in the evening. MAX 52 units/24 hours. 251-300= 4 units SQ 301-350= 5 units SQ 351-400=6 units SQ sq every 6 hours for DM>351 call provider lansoprazole 30 mg Capsule,Delayed Release(Dr/Ec) 30 mg PO QDAY magnesium oxide 400 mg magnesium Tablet 400 mg PO BID tramadol 50 mg tablet 50 mg PO TID PRN (Reason: pain) Qty: 10 0RF Patient Comments: not taking per med list 11/02/22 methocarbamol 500 mg tablet 500 mg PO Q6H PRN (Reason: muscle spasm) Qty: 14 0RF Patient Comments: not taking per med list 11/02/22 doxycycline hyclate 100 mg tablet 100 mg PO BID Patient Comments: not taking per med list 11/02/22
[2022-11-02 18:03] VITALS: BP 110/64; PULSE 74; RESP 18; TEMP 36.7; O2SAT 98
--- NOTE | 2022-11-02 20:10 | NUR.NOTE ---
Nursing Note: Report called to Serena RN. Patient will be going up to room 209 via stretcher shortly.
[2022-11-02 21:03] VITALS: BP 150/85; PULSE 95; RESP 20; TEMP 36.7; O2SAT 96
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
[2022-11-02] MEDS: POTASSIUM CHLORIDE/0.9% NACL 1,000 ML 80 MEQ IV (22:56)
[2022-11-02] MEDS: Simvastatin 20 MG TAB PO (23:03)
[2022-11-02] MEDS: Enoxaparin 40 MG/0.4 ML SYR SC (23:03)
[2022-11-02] MEDS: Ziprasidone 20 MG CAP PO (23:03)
[2022-11-02] MEDS: cefTRIAXone 1 GM/50 ML BAG IVPB (23:04)
[2022-11-02 23:13] LABS: NT-proBNP 71 pg/mL (<300)
[2022-11-02] MEDS: DOXYCYCLINE 100 MG in Normal Saline 100 ML IVPB (23:50)
[2022-11-02] MEDS: Prazosin 2 MG CAP PO (23:50)
--- NOTE | 2022-11-03 | DI.RAD_ITS ---
Exam(s) XR LUMBAR SPINE AP, LAT EXAM: XR LUMBAR SPINE AP, LAT CLINICAL HISTORY: Back pain. TECHNIQUE: 2D digital imaging was performed of the lumbar spine. Two images were obtained. AP and lateral views were obtained. COMPARISON: CR XR LUMBAR SPINE COMPLETE from 06/12/2022 CR XR CHEST 2V PA LATERAL from 07/15/2022 CR,XR XR PORTABLE CHEST AP from 07/26/2022 CR XR PORTABLE CHEST AP from 07/30/2022 CR,XR XR CHEST 2V PA LATERAL from 08/12/[address] CHEST/ABD/PEL W from 09/11/2022 FINDINGS: BONES: There are stable compression fracture deformities of T10 and T12 compared to the CT scan from 09/11/2022. There has been no significant change in the L4 compression fracture deformity. There als o stable compression fracture deformities of the superior endplates of L2, L3 and L5. There may now be mild compression of the superior endplate of L1. The bones are osteopenic. Degenerative changes a re present throughout the lumbar spine. There is an old T10 compression fracture deformity. DISKS: There is disc space narrowing at T11-T12. ALIGNMENT: Lumbar spinal alignment is within normal limits. No spondylolysis or spondylolisthesis. SOFT TISSUE: Atherosclerosis is present. There are surgical clips in the right upper quadrant of the abdomen. IMPRESSION: 1. Compared to the prior CT scan from 09/11/2022 there does not appear to be any significant change in the compression fracture deformities of T10, T12 and L2 through L5. 2. Osteopenia. 3. Question of a new mild compression deformity of the superior endplate of L1. DATA REPOSITORY: RADIATION DOSE DELIVERED:
[2022-11-03 00:04] VITALS: BP 132/74; PULSE 86; RESP 16; TEMP 36.6; O2SAT 93
[2022-11-03] MEDS: Acetaminophen 325 MG TAB PO (01:06)
[2022-11-03] MEDS: Melatonin 3 MG TAB PO ×2 (01:07→21:18)
[2022-11-03] MEDS: traMADol 50 MG TAB PO (01:08)
[2022-11-03] MEDS: clonazePAM 1 MG TAB 0.5 MG PO ×2 (01:09→21:20)
[2022-11-03 03:31] VITALS: BP 108/68; PULSE 72; RESP 18; TEMP 36.6; O2SAT 98
[2022-11-03] MEDS: Levothyroxine 112 MCG TAB PO (06:09)
[2022-11-03 07:12] LABS: HCT 39.4 % (36.0-46.0); HGB 13.7 g/dL (11.2-15.7); MCH 31.9 pg (27.0-33.0); MCHC 34.8 % (32.0-36.0); MCV 92 fL (80-95); Platelet Count 212 10^3/uL (130-400); RBC 4.29 10^6/uL (3.93-5.22); RDW 11.9 % (11.7-14.6); RDW-SD 39.5 fL; WBC 7.95 10^3/uL (4.4-10.8)
[2022-11-03 07:38] LABS: ALT 11 U/L (14-59); AST 13 U/L (15-37); Albumin 2.9 g/dL (3.4-5.0); Alkaline Phosphatase 149 U/L (46-116); Anion Gap 9.2 mmol/L (3-11); BUN 9 mg/dL (7-18); Bilirubin, Total 0.4 mg/dL (0.2-1.0); CO2 27.8 mmol/L (21.0-32.0); Chloride 105 mmol/L (98-107); Estimated GFR 58.75 (mL/min/1.73m2); Glucose 172 mg/dL (74-106); Magnesium 2.1 mg/dL (1.8-2.4); Potassium 3.2 mmol/L (3.5-5.1); Sodium 142 mmol/L (136-145); Total Protein 6.3 g/dL (6.4-8.2)
[2022-11-03 07:48] VITALS: BP 118/76; PULSE 83; RESP 18; TEMP 36.1; O2SAT 96
[2022-11-03] MEDS: Magnesium Oxide 400 MG TAB PO ×2 (08:21→21:05)
[2022-11-03] MEDS: Lansoprazole 30 MG CAPCR PO (08:21)
[2022-11-03] MEDS: Propranolol 20 MG TAB PO ×3 (08:21→21:05)
[2022-11-03] MEDS: Aspirin 81 MG CHEW PO (08:21)
[2022-11-03] MEDS: Escitalopram 20 MG TAB PO (08:22)
[2022-11-03] MEDS: Insulin Aspart 300 UNITS/3 ML PEN SC ×3 (08:22→16:37)
[2022-11-03] MEDS: Budesonide/Formoterol 160/4.5 6 GM 60 PUFF INH IH ×2 (09:17→19:20)
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
[2022-11-03 11:18] VITALS: BP 125/65; PULSE 69; RESP 17; TEMP 36; O2SAT 95
[2022-11-03] MEDS: Trimethobenzamide 200 MG/2 ML VIAL IM (11:24)
[2022-11-03] MEDS: DOXYCYCLINE 100 MG in Normal Saline 100 ML IVPB (11:25)
[2022-11-03] MEDS: POTASSIUM CHLORIDE/0.9% NACL 1,000 ML 80 MEQ IV (13:28)
--- NOTE | 2022-11-03 14:15 | PHA.REVIEW2 ---
Pharmacy Admission Review - Admission Clinical Review (Last Reviewed 11/02/22 @ 22:54 by Cresencio Ramires) Hypokalemia (Acute) Failure to thrive syndrome, adult (Acute) Decreased activity (Acute) Hx of falling (Acute) Acute encephalopathy (Acute) codeine Allergy (Severe, Unverified 11/02/22 16:11) Penicillins Allergy (Severe, Unverified 11/02/22 16:11) bupropion Allergy (Intermediate, Unverified 11/02/22 16:11) tetrabenazine Allergy (Intermediate, Unverified 11/02/22 16:11) Skin Rash lisinopril Allergy (Mild, Unverified 11/02/22 16:11) oxybutynin chloride [From Ditropan] Allergy (Unverified 11/02/22 16:11) Resuscitation Status DNR/DNI Height 5 ft 3 in Weight 74.8 kg - Renal Dosing Renal Dosing: BUN 9 mg/dL (7-18) 11/03/22 06:08 Creatinine 1.0 mg/dL (0.55-1.02) 11/03/22 06:08 Medications needing adjustments: Reviewed List of meds needing interventions: eCrCl 47 ml/min - Anticoagulation Anticoagulation: Hgb 13.7 g/dL (11.2-15.7) 11/03/22 06:08 Hct 39.4 % (36.0-46.0) 11/03/22 06:08 Plt Count 212 10^3/uL (130-400) 11/03/22 06:08 Creatinine 1.0 mg/dL (0.55-1.02) 11/03/22 06:08 DVT Prophylaxis: Reviewed Medications: Enoxaparin - Opiate Usage Evaluate Pain Scale/Pains Meds: N/A - Relevant Labs Sodium 142 mmol/L (136-145) 11/03/22 06:08 Potassium 3.2 mmol/L (3.5-5.1) L 11/03/22 06:08 Chloride 105 mmol/L (98-107) 11/03/22 06:08 Magnesium 2.1 mg/dL (1.8-2.4) 11/03/22 06:08 Electrolytes, C-Reactive P, ESR: Reviewed (fluids with k+ running) - DM Control DM Control: Glucose 172 mg/dL (74-106) H 11/03/22 06:08 Finger Stick Blood Glucose 183 Finger Stick Blood Glucose 183 Finger Stick Blood Glucose 183 Finger Stick Blood Glucose 149 Finger Stick Blood Glucose 149 Finger Stick Blood Glucose 149 DM Control: Reviewed Insulin Dosing, Diabetic Medication: aspart per SS ordered, uses glargine 15u BID at home as well - Cardiac Review Cardiac Review: NT-Pro-B Natriuret Pep 71 pg/mL (<300) 11/02/22 15:05 BP, HR, EF%: Reviewed - Qtc Review QTc: N/A - IV to PO Switch IV Medications: Reviewed - Home Meds Home Med List reviewed: Reviewed Relevent Home Meds Not ordered & why?: basal insulin (being covered with aspart per SS for now) - Current meds Current Medication Order Review: Reviewed (ceftriaxone + doxy IV continue (day 2), anticipate switch over to oral tx soon)
--- NOTE | 2022-11-03 14:29 | W.PM.PROGNOT ---
Date of Service Date of service: 11/03/22 Time of Service: 14:30 Assessment and Plan Assessment and plan (1) Low back pain: Status: Inactive Assessment and plan: muscle relaxants (Robaxin), topical voltaren gel, lidocaine patches and prn iv ketorolac; consider obtaining an MRI and if her fractures have not healed since August then refer to spinal clinic at [facility]. she should also have outpatient evaluation for osteoporosis and subsequent treatment i.e. bisphosphonate such as pamidronate or use of teriparatide (Forteo). (2) Compression fracture of body of thoracic vertebra: Status: Inactive (3) Compression fracture of lumbar vertebra: Status: Inactive (4) Failure to thrive syndrome, adult: Status: Acute (5) Hx of falling: Status: Acute (6) Poorly controlled type 2 diabetes mellitus: Status: Chronic Assessment and plan: patient is on Trulicity as well as basaglar and novolog at home. She was put on just sliding scale novlog. glucose has been running 150's to 180's. I will continue current regimen as she is expected to return home tomorrow. (7) Schizophrenia: Status: Chronic Assessment and plan: continue her home psychiaatric medications of Clonazepam (antianxiety), escitalopram (antidepressant/antianxiety) and Geodon (antipsychotic) (8) Tardive dyskinesia: Status: Chronic (9) Ambulatory dysfunction: Status: Acute Assessment and plan: P.T. evaluation along w/ pain control of her lumbar and thoracic fractures. Subjective Subjective Interval history since last seen: 77-year-old female with history of chronic schizophrenia as well as tardive dyskinesia secondary to her antipsychotic medications also has poorly controlled type 2 diabetes mellitus as well as pulm hypertension and GERD presented emergency department because generalized weakness and failure to thrive at home. She was not found to have any acute infectious process no fever or leukocytosis. Chest x-ray was read as having mild right upper lobe infiltrate but when when compared to previous x-ray shows no changes. She does have asthma/COPD. She is not having acute respiratory distress and is not hypoxemic. Patient reportedly had decreased oral intake for last few weeks and family had been trying to place her senior care because of inability to care for her at home. Physical therapy evaluated today found that she was complained of increased lower back pain which affected her ambulatory function. She did walk with the use of a walker with discomfort. I reviewed the images from yesterday she had a CT scan of her head because of alleged mental status change that showed no acute intracranial findings on a noncontrast CT scan. She has mild bilateral periventricular hypodensities consistent with chronic small vessel disease. Chest x-ray was read as mild right upper lobe infiltrate suprahilar region. However as I said when I compared this to his previous chest x-ray from 07/30/2022 there is really no significant changes. Of note she had a CT scan of the chest abdomen pelvis on 09/11/2022 showed multiple thoracic and lumbar compression fractures some of which were new at that time. I suspect that her low back pain is probably from the thoracic fractures or lumbar fractures. We will check a follow-up x-ray of her lumbosacral spine but we will start her on a regimen of Lidoderm patches along with muscle relaxants including Robaxin and put her on some Voltaren gel. The admitting hospitalist did put her on some as needed tramadol. Exam Narrative Exam Narrative: Elderly white female who has obvious tardive dyskinesia with facial grimacing and repetitive movement of her limbs. Lungs are clear anteriorly posteriorly I heard some faint rales at the bases no rhonchi or wheezes she has a prolonged expiratory phase Heart is regular but tachycardic Abdomen is soft nondistended normal bowel sounds Extremities without peripheral cyanosis or edema Back exam shows she is kyphotic she has tenderness over the lumbar spine as well as the paralumbar muscles. Objective Last Vital Signs Temp 36.0 C L 11/03/22 11:18 Pulse 69 11/03/22 11:18 Resp 17 11/03/22 11:18 BP 125/65 11/03/22 11:18 Pulse Ox 95 11/03/22 11:18 Laboratory Results - last 24 hr 11/02/22 11/02/22 11/02/22 14:52 15:05 15:05 WBC 9.43 RBC 4.81 Hgb 15.1 Hct 43.2 MCV 90 MCH 31.4 MCHC 35.0 RDW 11.5 L Plt Count 270 MPV 10.3 Immature Gran % 0.2 Neutrophils % 38.8 Lymphocytes % 48.3 Monocytes % 8.9 Eosinophils % 3.2 Basophils % 0.6 Nucleated RBC % 0.0 Absolute Neutrophils 3.66 Absolute Lymphocytes 4.55 H Absolute Monocytes 0.84 H Absolute Eosinophils 0.30 Absolute Basophils 0.06 Sodium 139 Potassium 3.3 L Chloride 100 Carbon Dioxide 30.2 Anion Gap 8.8 BUN 8 Creatinine 1.1 H Est GFR (CKD-EPI 2020) 52.40 Glucose 154 H Calcium 9.5 Magnesium 2.2 Total Bilirubin 0.5 AST 19 ALT 18 Alkaline Phosphatase 182 H Creatine Kinase 45 NT-Pro-B Natriuret Pep Total Protein 7.5 Albumin 3.4 TSH 2.29 Urine Color Urine Clarity Urine pH Ur Specific [place] Urine Protein Urine Ketones Urine Blood Urine Nitrite Urine Bilirubin Urine Urobilinogen Ur Leukocyte Esterase Urine Glucose 11/02/22 11/02/22 11/02/22 15:05 15:05 22:00 WBC RBC Hgb Hct MCV MCH MCHC RDW Plt Count MPV Immature Gran % Neutrophils % Lymphocytes % Monocytes % Eosinophils % Basophils % Nucleated RBC % Absolute Neutrophils Absolute Lymphocytes Absolute Monocytes Absolute Eosinophils Absolute Basophils Sodium Potassium Chloride Carbon Dioxide Anion Gap BUN Creatinine Est GFR (CKD-EPI 2020) Glucose Calcium Magnesium Cancelled Total Bilirubin AST ALT Alkaline Phosphatase Creatine Kinase NT-Pro-B Natriuret Pep 71 Total Protein Albumin TSH Urine Color Yellow Urine Clarity Clear Urine pH 5.5 Ur Specific [place] 1.015 Urine Protein Negative Urine Ketones Negative Urine Blood Negative Urine Nitrite Negative Urine Bilirubin Negative Urine Urobilinogen 0.2 Ur Leukocyte Esterase Negative Urine Glucose Negative 11/03/22 11/03/22 06:08 06:08 WBC 7.95 RBC 4.29 Hgb 13.7 Hct 39.4 MCV 92 MCH 31.9 MCHC 34.8 RDW 11.9 Plt Count 212 MPV 11.0 Immature Gran % Neutrophils % Lymphocytes % Monocytes % Eosinophils % Basophils % Nucleated RBC % Absolute Neutrophils Absolute Lymphocytes Absolute Monocytes Absolute Eosinophils Absolute Basophils Sodium 142 Potassium 3.2 L Chloride 105 Carbon Dioxide 27.8 Anion Gap 9.2 BUN 9 Creatinine 1.0 Est GFR (CKD-EPI 2020) 58.75 Glucose 172 H Calcium 9.0 Magnesium 2.1 Total Bilirubin 0.4 AST 13 L ALT 11 L Alkaline Phosphatase 149 H Creatine Kinase NT-Pro-B Natriuret Pep Total Protein 6.3 L Albumin 2.9 L TSH Urine Color Urine Clarity Urine pH Ur Specific [place] Urine Protein Urine Ketones Urine Blood Urine Nitrite Urine Bilirubin Urine Urobilinogen Ur Leukocyte Esterase Urine Glucose Time Spent with Patient Time Spent with Patient: 35-49 minutes Time was spent: preparing to see the patient(eg.review tests), obtaining and/or reviewing separately otained hiistory, ordering medications,tests, procedures, referring, communicating with other health childcare center administrator, indepentently interpreting results, counseling the patient and care coordination
--- NOTE | 2022-11-03 14:59 | PT.INIE ---
PT Notes Visit Reasons: Failure to Thrive in adult, CAP, COPD, Mild Dehydr Inpatient Physical Therapy Evaluation Date: 11/03/2022 Referring Doctor:? Yosef Aquino MD PT Orders: PT CONSULT: Fall safety assessment. Safety consult for D/C Precautions: Fall.? Standard. Activity as tolerated.? Patient Profile/Admitting Diagnosis:? Patient is a 77-year-old female with development delay,? tardive dyskinesia, cognitive developmental delay, and bipolar disorder admitted for management of PNA, hypokalemia, asthma, poorly controlled DM, pulmonary hypertension, schizophrenia, and GERD. PMHX: All Active Problems?(Updated 11/02/22 @ 23:10 by Cresencio Ramires) Hypokalemia (Acute) Failure to thrive syndrome, adult (Acute) Decreased activity (Acute) Hx of falling (Acute) Acute encephalopathy (Acute) Respiratory failure with hypoxia (Acute) Pulmonary hypertension (Chronic) Elevated hemidiaphragm (Acute) Asthma (Chronic) Poorly controlled type 2 diabetes mellitus (Chronic) Gastrostomy in place (Acute) Granuloma annulare (Acute) Lactose intolerance (Acute) Hiatal hernia (Chronic) Venous insufficiency (Acute) Tremor (Acute) Skin rash (Acute) Chest pain, rule out acute myocardial infarction (Acute) Ileus (Acute) Impaired decision making (Chronic) On tube feeding diet (Chronic) Aspiration pneumonia (Acute) Dysphagia (Chronic) IDDM (insulin dependent diabetes mellitus) (Chronic) Schizophrenia (Chronic) Tardive dyskinesia (Chronic) Ambulatory dysfunction (Acute) S/P percutaneous endoscopic gastrostomy (PEG) tube placement (Acute) Dysphagia causing pulmonary aspiration with swallowing (Chronic) Advance directive discussed with patient (Chronic) Chest pain (Acute) Atrial flutter (Chronic) Ambulatory dysfunction (Chronic) Migraine headache without aura (Chronic) Osteoporosis (Chronic) Type 2 diabetes mellitus (Chronic) Urgency incontinence (Chronic 05/01/15) Sensorineural hearing loss, bilateral (Chronic 01/07/15) Dysphagia, unspecified (Chronic 06/22/16) Medical History? Abnormal CT of the head Acute bronchitis Acute respiratory distress Adenomatous polyp of colon Altered mental status Altered mental status Asthma exacerbation Atrial flutter Arias's esophagus Bipolar disorder Chronic low back pain Cognitive developmental delay Depression with anxiety Developmental delay, borderline Diabetes mellitus type 2, controlled Diastolic heart failure Dysuria GERD (gastroesophageal reflux disease) Hearing loss Hyperlipidemia Hypertension Hypothyroidism Hypoxemia Hypoxia Influenza A Nausea and vomiting Neurogenic bladder Obesity Obstructive sleep apnea C-PAP removed due to noncomplianceOsteoarthritis Palliative care encounter Pneumonia Respiratory failure, unspecified with hypoxia Schizophrenia 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) Surgical History? H/O tubal ligation History of cataract surgery History of hernia repair History of hysterectomy with bilateral oophorectomy S/P cholecystectomy Social History/Home Situation:? Philomean lived with her sister Chantal who provides assistance with bathing. There is a ramp to enter her sister's house.? Modified independent indoor using FWW. ? Equipment Owned/DME: Hospital bed, 4WW, CPAP machine Subjective: Reports low back pain that is worse with standing and sitting, relieved with resting on her back. Refused to walk to the door as her pain worsens, did agree to try sit on chair. Objective: General Observation: Seated on chair.? Dyskinesias at rest and with movement. Mental Status: Alert and oriented as to person and place.? Unable to determine date and time. Pain: As above ROM: Back: Less than 50% AROM diminished due to pain in all directions. Right Upper Extremity: ? Shoulder Flexion WFL. Shoulder abduction WFL. Elbow flexion WFL. Wrist flexion WFL. Functional opening and closing of hand WFL. Left Upper Extremity:? Shoulder Flexion WFL. Shoulder abduction WFL. Elbow flexion WFL. Wrist flexion WFL. Functional opening and closing of hand WFL. Right Lower Extremity: Hip flexion lacks about 50% of available range of motion. Hip abduction lacks about 50% of available range of motion. Knee flexion WFL. Ankle dorsiflexion WFL. Ankle plantarflexion WFL. Left Lower Extremity: Hip flexion lacks about 50% of available range of motion. Hip abduction lacks about 50% of available range of motion. Knee flexion WFL. Ankle dorsiflexion WFL. Ankle plantarflexion WFL. Strength: Back: Grossly 3-/5 Right Upper Extremity: Shoulder flexors 4-/5. Shoulder abductors 4-/5. Elbow flexors 4-/5. Elbow extensors 4-/5. Forge Operator Helper strong. Left Upper Extremity: Shoulder flexors 4-/5. Shoulder abductors 4-/5. Elbow flexors 4-/5. Elbow extensors 4-/5. Forge Operator Helper strong. Right Lower Extremity: Hip flexors 3-/5. Hip abductors 3-/5. Knee flexors 3-5. Knee extensors 3-/5. Ankle dorsiflexors 3-/5. Ankle plantarflexors 3-/5. Left Lower Extremity: Hip flexors 3-/5. Hip abductors 3-/5. Knee flexors 3-5. Knee extensors 3-/5. Ankle dorsiflexors 3-/5. Ankle plantarflexors ? 3-/5. Sensation: Intact as to pain and pressure to bilateral lower extremities. Bed Mobility/Transfers: Sit to stand contact-guard assist Stand to sit contact-guard assist with FWW Bed to chair contact-guard assist with FWW Gait: Only able to walk 5 steps from bedside to bedside chair due to pain report in back. Requested to go back to bed as patient could not tolerated sitting position for too long. Balance: Static Sitting: Fair Dynamic Sitting: fair Static Standing: Fair Dynamic Standing: Fair Special Tests: Mobility Limitations Standardized Measure [facility] 6 clicks Basic Mobility Inpatient Short Form: Raw Score:18? CMS Score: 47% deficit Informed Consent/Education:? Patient was instructed in purpose of PT consult and plan of care. Agreeable to proceed with established PT POC to achieve personal goals. ASSESSMENT: Patient unable to tolerate prolonged sitting and standing due to pain report in back. Irritable both in flexion and extension movements. Ambulation distance is significantly declined as patient refused walking too far due to pain. Tenderness palpated along lumbar paraspinals with L more affected than R. Will continue to require services for back rehabilitation to facilitate gradual and safe return to mobility level. Patient presents with clinical signs and symptoms consistent with current/admitting diagnoses that have resulted to mobility limitations, gait instability, generalized weakness, and lack of motor control as demonstrated by the following impairment level findings: 1.? Decreased strength to B LE major muscle groups 2.? Impaired balance 3.? Impaired activity tolerance 4.? Limitation of joint range of motion in the hips (chronic) 5.? Dyskinesia (chronic) 6. Low back pain Impairments are contributing to the following functional limitations: 1.? Inability to safely ambulate without assistive device 2.? Increase completion time for mobility ADL performance 3.? Increased fall risk 4.? Inability to negotiate steps alone safely Patient is assessed 14369 moderate complexity based on the following: History: Patient is a 77-year-old female with development delay,? tardive dyskinesia, cognitive developmental delay, and bipolar disorder admitted for management of PNA, hypokalemia, asthma, poorly controlled DM, pulmonary hypertension, schizophrenia, and GERD. Examination: Underlying impairments and functional deficits have resulted to AMPAC score of 18 with an equivalent deficit of 47% Presentation: Evolving Decision Makin moderate complexity Goals: Goals X1 week 1. Supine-Sit independent 2. Sit-Supine independent 3. Sit-Stand independent with FWW 4. Stand-Sit independent with FWW 5. Bed-Chair independent with FWW 6. Chair-Bed independent with FWW 7.?Supervision withgait on level surface with use of FWW for at least 300 feet without report of pain nor dyspnea Plan of Care/Treatment Plan: 1-2x/day, 7 days/week x 1 week. Plan of care has been reviewed with the VOCATIONAL REHABILITATION SUPERVISOR providing the service under Physical Therapy direction. Initiate Physical Therapy intervention for strengthening, bed mobility, transfers, gait, stairs, balance training, use of assistive device. DISCHARGE RECOMMENDATIONS: [] ? Home with no services [] [] ? Home with services [] ? Home with outpatient PT [] [] ? SNF for continued rehabilitation [] [] ? Housekeeper Nanny Care [] [] ? SNF versus LTC based on ability to participate and progress [] [X] SNF vs PT based on progress towards goals TREATMENT CODE/TIME: 49706 x 21 minutes beginning at 11:40 AM. Thank you for the opportunity to participate in the care of this patient. Rox Brown PT, DPT, CLT [facility] [place], [place]
[2022-11-03] MEDS: Normal Saline Flush 10 ML SYR IVP (15:03)
[2022-11-03] MEDS: Ketorolac 15 MG/ML VIAL IVP (15:03)
[2022-11-03 15:15] VITALS: BP 121/75; PULSE 81; RESP 18; TEMP 37; O2SAT 95
[2022-11-03 15:46] LABS: Potassium 3.8 mmol/L (3.5-5.1)
[2022-11-03 15:50] LABS: C-Reactive Protein 0.54 mg/dL (0.0-0.3)
--- NOTE | 2022-11-03 16:09 | PTTR_ITS ---
Date of service: 11/03/22 Time of Service: 14:32 PT Notes Visit Reasons: Failure to Thrive in adult, CAP, COPD, Mild Dehydr Inpatient Physical Therapy Treatment Note [facility] Date: 11/03/22 PRECAUTIONS: Fall, standard, activity as tolerated. SUBJECTIVE: Patient supine in bed, agreeable to therapy OBJECTIVE: ? PAIN: Yes, in low back, exacerbated by movement, extremely exacerbated by changes in position especially sitting or standing. VITALS: monitored by nursing staff. ? Therapeutic Activities (39101y1): Direct one-on-one instruction in dynamic activities to improve functional performance. ? BED MOBILITY/TRANSFERS? Rolling L/R: SBA with verbal cues Supine-sit: Min assist ? Sit-supine: SBA ? Sit-stand: CGA ? Stand-sit: CGA ? Bed-Chair: CGA with verbal cues ? Chair-bed: CGA with verbal cues. Provided skilled cues and instruction on performance and technique throughout. Instructed patient through bridges x5, SLR x5 each side to facilitate i ndependent bed mobility. Patient makes it known that these movements do cause her pain to increase. ASSESSMENT:? Patient is agreeable to continue to work with therapy, however her vocalizations of pain occur with increasing frequency and severity. PLAN: Continue global strengthening per plan of care until patient is medically cleared for discharge. Dr. Aquino came in during therapy session with ideas on how to better control patient's pain. TREATMENT CODE/TIME: 32640 Ther Act 11 minutes beginning at 14:32
[2022-11-03 16:13] LABS: Procalcitonin < 0.1 ng/mL
[2022-11-03] MEDS: Methocarbamol 750 MG TAB PO ×2 (16:29→21:18)
[2022-11-03] MEDS: Diclofenac 1% Gel 100 GM TUBE TP ×2 (16:36→21:18)
[2022-11-03] MEDS: Lidocaine 5% Patch 2 PATCH TP (18:05)
--- NOTE | 2022-11-03 19:47 | DI.VRAD_ITS ---
PROCEDURE INFORMATION: Exam: XR Lumbosacral Spine Exam date and time: 11/03/2022 7:07 PM Age: 77 years old Clinical indication: Back pain TECHNIQUE: Imaging protocol: Radiologic exam of the lumbosacral spine. Views: 2 or 3 views. COMPARISON: CT chest abdomen pelvis 09/11/2022; CT THORACIC / LUMBAR SPINE WO 07/22/2022 12:52 AM FINDINGS: Bones/joints: Compared to a prior CT examination dated 09/11/2022, no interval change in moderate to severe loss of height of the T10 and T12 vertebral bodies. No interval change in moderate loss of height of the L4 vertebral body. No interval change in mild superior loss of height of the L2, L3, and L5 vertebral bodies. Soft tissues: Unremarkable. Organs: Prior cholecystectomy. IMPRESSION: Compared to a prior CT examination dated 09/11/2022, no interval change in moderate to severe loss of height of the T10 and T12 vertebral bodies. No interval change in moderate loss of height of the L4 vertebral body. No interval change in mild superior loss of height of the L2, L3, and L5 vertebral bodies. Dictated and Authenticated by: Arnol Brown MD. Ordering:DavidNORTHERN NAVAJO MEDICAL CENTERDianne Navas MD
[2022-11-03] MEDS: Ziprasidone 20 MG CAP PO (21:19)
[2022-11-03] MEDS: Simvastatin 20 MG TAB PO (21:19)
[2022-11-03] MEDS: Enoxaparin 40 MG/0.4 ML SYR SC (21:19)
[2022-11-03] MEDS: Prazosin 2 MG CAP PO (21:21)
[2022-11-03 23:10] VITALS: BP 118/72; PULSE 78; RESP 18; TEMP 36.6; O2SAT 95
[2022-11-04] MEDS: Acetaminophen 325 MG TAB PO ×2 (00:09→11:27)
[2022-11-04] MEDS: traMADol 50 MG TAB 100 MG PO ×2 (00:10→11:28)
[2022-11-04] MEDS: Levothyroxine 112 MCG TAB PO (05:00)
[2022-11-04 07:41] VITALS: BP 110/70; PULSE 70; RESP 16; TEMP 36.6; O2SAT 97
[2022-11-04] MEDS: Aspirin 81 MG CHEW PO (08:22)
[2022-11-04] MEDS: Propranolol 20 MG TAB PO ×2 (08:22→14:25)
[2022-11-04] MEDS: Magnesium Oxide 400 MG TAB PO (08:22)
[2022-11-04] MEDS: Lansoprazole 30 MG CAPCR PO (08:22)
[2022-11-04] MEDS: Escitalopram 20 MG TAB PO (08:22)
[2022-11-04] MEDS: Methocarbamol 750 MG TAB PO ×2 (08:22→11:28)
[2022-11-04] MEDS: Insulin Aspart 300 UNITS/3 ML PEN SC ×2 (08:23→11:56)
[2022-11-04] MEDS: Diclofenac 1% Gel 100 GM TUBE TP ×2 (08:34→11:32)
[2022-11-04] MEDS: Budesonide/Formoterol 160/4.5 6 GM 60 PUFF INH IH (08:35)
--- NOTE | 2022-11-04 09:13 | PDOC.CMPRO ---
Date of service: 11/04/22 Time of Service: 09:14 Care Management Progress Note Progress Note Text Progress Note Text: S/O: A: Philomena is a 77 year old woman admitted with failure to thrive on 11/02/22 P:CM to coordinate with family and interdisciplinary team on safe discharge disposition. CM discussed disposition planning concerns with Chantal Quach and ; Philomena will return home to resume SNF coordination support from her community based team including Leti Franz, Katya Navarrete and Mary Jo. BRI called [facility] to confirm receipt of referral as reported by Chantal; [facility] reports she has not recieved a referral; Chantal reports being told that Mary Jo faxed the referral yesterday. CM faxed referral to [facility]. Philomena will return home with new orders for VNA PT, and the support of her sister. PT is in support of SNF but feel with sponge press operator caregiver support, Philomena can return home while awaiting placement. She will transport via private vehicle with her sister, BRI continues to follow.
[2022-11-04] MEDS: Polyethylene Glycol 3350 17 GM PACKET PO (11:29)
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
--- NOTE | 2022-11-04 11:48 | PDOC.HHF2F ---
Home Health Referral Home Health Orders Medical diagnosis necessitation home health referral: cognitive developmental delay, tardive dyskinesia, multiple falls with ambulatory dysfunction Physical Therapist: Check all that apply Increase strength & endurance for safe mobility at home: Ordered To design/establish home maintenance program: Ordered Fall reduction therapy program for patient with history of frequent falls: Ordered Home safety evaluation and teaching/gait training including stair management (if applicable): Ordered Occupational Therapist: Evaluate and treat for patient unable to perform ADL/IADL/self-care: Ordered Upper extremity strengthening, range and motion: Ordered Home Bound Status Requires the aid of supportive device (check all that apply): Walker Assistance of another person (Describe assistance and medical necessity): supervision needed secondary to developmental delay Describe why leaving home would require a considerable and taxing effort: Confusion Encounter Date and Reason: I certify that a FTF encounter for this patient was performed on November 04, 2022 and that such encounter was related to the primary reason the patient requires home health services. The encounter was conducted in the following manner: By me as the certifying physician, PASSENGER SCREENER, PA or By an inpatient physician, PASSENGER SCREENER or PA during an inpatient stay who communicated findings to me, Certification And Authentication I certify that I composed the above information based on my clinical judgment relating to this patient's medical condition and, if applicable, clinical findings communicated to me by the NPP or inpatient physician who performed the FTF encounter. Name of Provider that will be monitoring home health services: Leti Franz
[2022-11-04 14:27] VITALS: BP 115/67; PULSE 64; O2SAT 96
--- NOTE | 2022-11-04 16:07 | INDS_ITS ---
Date of service: 11/04/22 Time of Service: 10:55 PT Notes Visit Reasons: Failure to Thrive in adult, CAP, COPD, Mild Dehydr Inpatient Physical Therapy Discharge Summary Date: 11/04/2022 Dates of Service: through 11/04 2022 Referring Doctor:? Yosef Aquino MD PT Orders: PT CONSULT: Fall safety assessment.? Safety consult for D/C Precautions: Fall.? Standard.? Activity as tolerated.? Patient Profile/Admitting Diagnosis:? Patient is a 77-year-old female with development delay,? tardive dyskinesia, cognitive developmental delay, and bipolar disorder admitted for management of PNA,? hypokalemia,? asthma,? poorly controlled DM,? pulmonary hypertension,? schizophrenia,? and GERD. Patient was seen on the dates above for PT services and requires PT services for continued rehabilitation. PMHX: All Active Problems?(Updated 11/02/22 @ 23:10 by Cresencio Ramires) Hypokalemia (Acute) Failure to thrive syndrome, adult (Acute) Decreased activity (Acute) Hx of falling (Acute) Acute encephalopathy (Acute) Respiratory failure with hypoxia (Acute) Pulmonary hypertension (Chronic) Elevated hemidiaphragm (Acute) Asthma (Chronic) Poorly controlled type 2 diabetes mellitus (Chronic) Gastrostomy in place (Acute) Granuloma annulare (Acute) Lactose intolerance (Acute) Hiatal hernia (Chronic) Venous insufficiency (Acute) Tremor (Acute) Skin rash (Acute) Chest pain, rule out acute myocardial infarction (Acute) Ileus (Acute) Impaired decision making (Chronic) On tube feeding diet (Chronic) Aspiration pneumonia (Acute) Dysphagia (Chronic) IDDM (insulin dependent diabetes mellitus) (Chronic) Schizophrenia (Chronic) Tardive dyskinesia (Chronic) Ambulatory dysfunction (Acute) S/P percutaneous endoscopic gastrostomy (PEG) tube placement (Acute) Dysphagia causing pulmonary aspiration with swallowing (Chronic) Advance directive discussed with patient (Chronic) Chest pain (Acute) Atrial flutter (Chronic) Ambulatory dysfunction (Chronic) Migraine headache without aura (Chronic) Osteoporosis (Chronic) Type 2 diabetes mellitus (Chronic) Urgency incontinence (Chronic 05/01/15) Sensorineural hearing loss, bilateral (Chronic 01/07/15) Dysphagia, unspecified (Chronic 06/22/16) Medical History? Abnormal CT of the head Acute bronchitis Acute respiratory distress Adenomatous polyp of colon Altered mental status Altered mental status Asthma exacerbation Atrial flutter Arias's esophagus Bipolar disorder Chronic low back pain Cognitive developmental delay Depression with anxiety Developmental delay, borderline Diabetes mellitus type 2, controlled Diastolic heart failure Dysuria GERD (gastroesophageal reflux disease) Hearing loss Hyperlipidemia Hypertension Hypothyroidism Hypoxemia Hypoxia Influenza A Nausea and vomiting Neurogenic bladder Obesity Obstructive sleep apnea C-PAP removed due to noncomplianceOsteoarthritis Palliative care encounter Pneumonia Respiratory failure, unspecified with hypoxia Schizophrenia 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) Surgical History? H/O tubal ligation History of cataract surgery History of hernia repair History of hysterectomy with bilateral oophorectomy S/P cholecystectomy Social History/Home Situation:? Philomena lived with her sister Chantal who provides assistance with bathing. There is a ramp to enter her sister's house.? Modified independent indoor using FWW. ? Equipment Owned/DME: Hospital bed, 4WW, CPAP machine Subjective: Patient feels much better and was willing to walk with PT using her FWW. Reports minimal pain in low back this morning. Complained about not being able to have a bowel movement. Nurse Skylar aware. Objective: General Observation: Seated on chair.? Dyskinesias minmal today compared to yesterday.. Mental Status: Alert and oriented as to person and place.? Unable to determine date and time. Pain: Minimal pain that did not limit mobility performance ROM: Back:?Able to complete 75% AROM with improvement in pain report Right Upper Extremity: ? Shoulder Flexion WFL. Shoulder abduction WFL. Elbow flexion WFL. Wrist flexion WFL. Functional opening and closing of hand WFL. Left Upper Extremity:? Shoulder Flexion WFL. Shoulder abduction WFL. Elbow flexion WFL. Wrist flexion WFL. Functional opening and closing of hand WFL. Right Lower Extremity: Hip flexion lacks about 50% of available range of motion. Hip abduction lacks about 50% of available range of motion. Knee flexion WFL. Ankle dorsiflexion WFL. Ankle plantarflexion WFL. Left Lower Extremity: Hip flexion lacks about 50% of available range of motion. Hip abduction lacks about 50% of available range of motion. Knee flexion WFL. Ankle dorsiflexion WFL. Ankle plantarflexion WFL. Strength: Back:? Grossly 4-/5 Right Upper Extremity: Shoulder flexors 4-/5. Shoulder abductors 4-/5. Elbow flexors 4-/5. Elbow extensors 4-/5. Radiologic Technologist strong. Left Upper Extremity: Shoulder flexors 4-/5. Shoulder abductors 4-/5. Elbow flexors 4-/5. Elbow extensors 4-/5. Radiologic Technologist strong. Right Lower Extremity: Hip flexors 3-/5. Hip abductors 3-/5. Knee flexors 3-5. Knee extensors 3-/5. Ankle dorsiflexors 3-/5. Ankle plantarflexors 3-/5. Left Lower Extremity: Hip flexors 3-/5. Hip abductors 3-/5. Knee flexors 3-5. Knee extensors 3-/5. Ankle dorsiflexors 3-/5. Ankle plantarflexors ? 3-/5. Sensation: Intact as to pain and pressure to bilateral lower extremities. Bed Mobility/Transfers: Sit to stand stand by assist Stand to sit stand by assist with FWW Bed to chair stand by assist with FWW Gait: 150 feet + 150 feet using FWW with stand by assist and wheelchair follow. Needed to use the bathroom at the end of first trip and so had to walk back to her room. Step height and length asymmetric but this has been patient's baseline gait pattern. Mildly short of breath at end of first trip. Cues were provided to minimize path deviation and for safer AD handling. Balance: Static Sitting: Good Dynamic Sitting: Good Static Standing: Fair Dynamic Standing: Fair Special Tests: Mobility Limitations Standardized Measure [facility] 6 clicks Basic Mobility Inpatient Short Form: Raw Score: 23? CMS Score: 11% deficit ASSESSMENT: Demonstrated much improved mobility performance using FWW requiring only stand by assist with no report of increased pain. Trunk much more erect and gait appeared more stable Patient presents with clinical signs and symptoms consistent with current/admitting diagnoses that have resulted to mobility limitations, gait instability, generalized weakness, and lack of motor control as demonstrated by the following impairment level findings: 1.? Decreased strength to B LE major muscle groups 2.? Impaired balance 3.? Impaired activity tolerance 4.? Limitation of joint range of motion in the hips (chronic) 5.? Dyskinesia (chronic) Impairments are contributing to the following functional limitations: 1.? Inability to safely ambulate without assistive device 2.? Increase completion time for mobility ADL performance 3.? Increased fall risk 4.? Inability to negotiate steps alone safely Goals: Goals X1 week 1. Supine-Sit independent NOT MET, CONTINUE WITH HH PT 2. Sit-Supine independent NOT MET, CONTINUE WITH HH PT 3. Sit-Stand independent with FWW NOT MET, CONTINUE WITH HH PT 4. Stand-Sit independent with FWW NOT MET, CONTINUE WITH HH PT 5. Bed-Chair independent with FWW NOT MET, CONTINUE WITH HH PT 6. Chair-Bed independent with FWW NOT MET, CONTINUE WITH HH PT 7.?Supervision withgait on level surface with use of FWW for at least 300 feet without report of pain nor dyspnea NOT MET, CONTINUE WITH HH PT DISCHARGE RECOMMENDATIONS: [] ? Home with no services [] [X] ? Home with services. Patient will benefit from home health PT services in order to progress mobility level using least restrictive assistive ambulatory device, assess home safety, identify additional equipment needs, and establish a functional maintenance program that will increase ability of patient to remain at home. [] ? Home with outpatient PT [] [] ? SNF for continued rehabilitation [] [] ? Jail Care [] [] ? SNF versus LTC based on ability to participate and progress [] TREATMENT CODE/TIME: 91819 x 24 minutes beginning at 10:55 AM. Thank you for the opportunity to participate in the care of this patient. Rox Brown PT, DPT, CLT [facility] [place], [place]
--- NOTE | 2022-11-04 16:56 | PDOC.CMDIS ---
Date of service: 11/04/22 Time of Service: 16:56 LACE Index Scoring Tool Questions: Length of Stay (in days): 2 Was the patient admitted via the E.D.?: Yes Comorbidities: Diabetes w/o Complication and Congestive Heart Failure E.D. Visits: 9 Answers: Total Score: 12 Risk of Readmission: High Risk Care Management Discharge Plan Reason for Hospitalization: Cellulitis, lactic acidosis, IDDM Discharge Plan: Philomena will be discharged home with new home health services for PT and OT. She has [facility] highest needs and her sister, with whom she lives, is her caregiver. She will follow up with her community providers and plan of care and will be driven home by her sister. Patient/Family Education Needs: Review discharge instructions and limitations, discussion of self care needs including ask me three. Services Needed at Discharge: Occupational Therapy and Physical Therapy
== END 2022-11-04 15:30 | disposition home health service (06) ==
LOC: ER 19:16 → MS 20:21
PROVIDERS: Emergency Medicine; Internal Medicine; Admitting Provider Family Medicine; Emergency Provider Emergency Medicine; PCP Family Medicine; Visit Provider Family Medicine
DX: R62.7 Adult failure to thrive (principal); G93.40 Encephalopathy, unspecified; E87.6 Hypokalemia; E11.65 Type 2 diabetes mellitus with hyperglycemia; I27.20 Pulmonary hypertension, unspecified; I50.30 Unspecified diastolic (congestive) heart failure; J45.909 Unspecified asthma, uncomplicated; F20.9 Schizophrenia, unspecified; K21.9 Gastro-esophageal reflux disease without esophagitis; M54.50 Low back pain, unspecified; Z91.81 History of falling; R26.2 Difficulty in walking, not elsewhere classified; Z79.899 Other long term (current) drug therapy; E86.0 Dehydration; Z66 Do not resuscitate; Z93.1 Gastrostomy status; K44.9 Diaphragmatic hernia without obstruction or gangrene; I87.8 Other specified disorders of veins; Z79.4 Long term (current) use of insulin; G24.01 Drug induced subacute dyskinesia; R13.10 Dysphagia, unspecified; I48.92 Unspecified atrial flutter; E78.5 Hyperlipidemia, unspecified; I11.0 Hypertensive heart disease with heart failure; E03.9 Hypothyroidism, unspecified; G47.33 Obstructive sleep apnea (adult) (pediatric); S22.070A Wedge compression fracture of T9-T10 vertebra, initial encounter for closed fracture; S22.080A Wedge compression fracture of T11-T12 vertebra, initial encounter for closed fracture; S32.010A Wedge compression fracture of first lumbar vertebra, initial encounter for closed fracture; W19.XXXA Unspecified fall, initial encounter
CPT/HCPCS: 36415; 51701; 80053; 82550; 84145; 85027; 94640; 96361; 96365; 97110; 97162; 97530; 99285; J1650; 70450; 71045; 72100; 81003; 83735; 83880; 84132; 84443; 85025; 86140; 94664; 99223; 99232; 99238; G0378; J0696; J1885; J3490

== ENCOUNTER 2022-11-12 11:40 | Observation (INO) | payer OTHER, MEDICAID, SELFPAY ==
[2022-11-12] VITALS (13 sets, daily range): BP systolic 106–138; BP diastolic 51–90; PULSE 69–113; RESP 18–20; TEMP 36.2–37.2; O2SAT 93–98
--- NOTE | 2022-11-12 | DI.CT_ITS ---
Exam(s) CT CHEST WO EXAM: CT CHEST WO CLINICAL HISTORY: ? infiltrates, xray results limited d/t poor inspi TECHNIQUE: Imaging Protocol: Axial computed tomography images with coronal and sagittal reformatted images were created and reviewed CONTRAST MATERIAL: Intravenous: Omnipaque 350 Contrast volume:structured data ml. COMPARISON: CT CT THORAX ABD/PEL CTA from 07/26/2022 CR,XR XR PORTABLE CHEST AP from 07/26/2022 CR,XR XR CHEST 2V PA LATERAL from 08/12/[address] CHEST/ABD/PEL W from 09/11/2022 CR XR CHEST 1V IN DI DEPT from 11/02/2022 CR XR CHEST 2V PA LATERAL from 11/12/2022 FINDINGS: Exam extremely limited by respiratory motion and expiratory changes. Pulmonary parenchyma: Increased interstitial markings again noted in both upper and lower lobes. no consolidation. No dominant measurable mass. Tracheobronchial tree: No bronchiectasis or mucous plugging. Pulmonary arteries: Prominent. This co uld be secondary to pulmonary hypertension. Mediastinum and Diane: No dominant adenopathy or fluid collection. Pleura: No effusion or pneumothorax. Heart: The heart is not dilated. Mild coronary artery calcifications are seen. Aorta: Thoracic aorta non-dilated. Mild atherosclerotic changes. Upper abdomen: Unremarkable. Bones: Stable T10 and T12 compression fractures.Degenerative changes in the spine. Soft tissues: Unremarkable. IMPRESSION: Limited exam due to motion and expiratory changes. Underlying chronic interstitial changes. No acut e abnormality. RADIATION DOSE DELIVERED: 455.77mGy.cm Total DLP DATA REPOSITORY: All CT scans at this facility are submitted to the National Radiology Data Registry (NRDR) Dose Index Registry (DIR) with the [employer] ([employer]). RADIATION OPTIMIZATION: All CT scans at this facility use at least one of these dose optimization te chniques: automated exposure control; mA and/or kV adjustment per patient size (includes targeted exa ms where dose is matched to clinical indication); or iterative reconstruction.
--- NOTE | 2022-11-12 12:00 | DI.RAD_ITS ---
Exam(s) XR CHEST 2V PA LATERAL EXAM: XR CHEST 2V PA LATERAL CLINICAL HISTORY: quiet left lung sumner TECHNIQUE: 2D digital imaging was performed of the chest. Two images were obtained. PA and lateral views were obtained. COMPARISON: CR,XR XR CHEST 2V PA LATERAL from 08/12/2022 CR XR CHEST 1V IN DI DEPT from 11/02/2022 FINDINGS: There is a poor inspiration. This does cause crowding of the pulmonary vasculature. MEDIASTINUM: Normal. HEART: Normal. PULMONARY VASCULATURE: Normal. LUNGS: The right perihilar lung markings are more pronounced compared to the prior examination from . This may be due to decreased inspiration but a worsening interstitial infiltrate cannot be excluded. There also increased lung markings in the left infrahilar region not present on the prior examination. This is a similar differential. PLEURAL SPACE: No pleural effusion or pneumothorax. BONE:Within normal limits for the patient's age. OTHER FINDINGS:Normal. IMPRESSION: Exam limited by decreased inspiration. Interstitial infiltrate versus crowding of the pulmonary vasc ulature. Please correlate clinically. DATA REPOSITORY: RADIATION DOSE DELIVERED:
--- NOTE | 2022-11-12 12:00 | DI.CT_ITS ---
Exam(s) CT HEAD WO EXAM: CT HEAD WO CLINICAL HISTORY: ams. TECHNIQUE: Imaging Protocol: Axial computed tomography images with coronal and sagittal reformatted images were created and reviewed COMPARISON: CT CT HEAD WO from 11/02/2022 FINDINGS: The examination is limited due to patient motion artifact. Ventricles and Extra axial spaces: Normal in size and morphology for the patient's age. Hemorrhage: None. Cerebral parenchyma: There is no evidence of an acute infarct. There are areas of decreased attenuat ion in the white matter most consistent with small vessel ischemic disease. Midline shift: None. Brainstem/Cerebellum: Normal. Calvarium: Normal. Visualized Paranasal sinuses/Mastoids: Clear. Soft Tissues: Unremarkable. IMPRESSION: 1. No acute intracranial process. 2. Findings were discussed with the emergency department at 1:49 p.m. on 11/12/2022. RADIATION DOSE DELIVERED: 704.72mGy.cm Total DLP DATA REPOSITORY: All CT scans at this facility are submitted to the National Radiology Data Registry (NRDR) Dose Index Registry (DIR) with the [employer] (A[employer]). RADIATION OPTIMIZATION: All CT scans at this facility use at least one of these dose optimization te chniques: automated exposure control; mA and/or kV adjustment per patient size (includes targeted exa ms where dose is matched to clinical indication); or iterative reconstruction.
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
[2022-11-12] MEDS: diphenhydrAMINE 50 MG/ML VIAL 25 MG IVP (12:27)
[2022-11-12] MEDS: Normal Saline 500 ML 1000 ML IV (12:29)
[2022-11-12 12:33] LABS: Abs Immature Grans 0.01 10^3/uL (0.0-0.06); Absolute Basophil Count 0.05 10^3/uL (0.0-0.2); Absolute Eosinophil Count 0.21 10^3/uL (0.0-0.7); Absolute Monocyte Count 0.62 10^3/uL (0.1-0.8); Absolute Neutrophil Count 3.77 10^3/uL (1.2-6.7); Basophils % 0.6; Eosinophils % 2.4; HCT 40.9 % (36.0-46.0); HGB 14.1 g/dL (11.2-15.7); Immature Grans % 0.1; Lymphocytes % 47.4; MCH 31.4 pg (27.0-33.0); MCHC 34.5 % (32.0-36.0); MCV 91 fL (80-95); MPV 10.3 fL (8.0-11.0); Neutrophils % 42.5; Platelet Count 249 10^3/uL (130-400); RBC 4.49 10^6/uL (3.93-5.22); RDW 11.7 % (11.7-14.6); WBC 8.86 10^3/uL (4.4-10.8)
[2022-11-12 12:45] LABS: PTT Activated 24.1 sec (21.5-31.9); Prothrombin Time 10.4 sec (9.3-11.0)
[2022-11-12 12:58] LABS: ALT 17 U/L (14-59); AST 17 U/L (15-37); Albumin 3.1 g/dL (3.4-5.0); Alkaline Phosphatase 137 U/L (46-116); Anion Gap 10.4 mmol/L (3-11); BUN 14 mg/dL (7-18); Bilirubin, Total 0.5 mg/dL (0.2-1.0); CO2 26.6 mmol/L (21.0-32.0); CREATININE 1.1 mg/dL (0.55-1.02); Calcium 9.1 mg/dL (8.5-10.1); Chloride 103 mmol/L (98-107); Creatine Kinase 30 U/L (26-192); Glucose 182 mg/dL (74-106); Sodium 140 mmol/L (136-145); TSH (W/Ref FT4) 0.79 uIU/mL (0.36-3.74); Troponin I < 50 ng/L (<or=60)
[2022-11-12 14:32] LABS: Bilirubin Negative (Negative); Blood Negative (Negative); Clarity Clear (Clear); Glucose Negative (Negative); Ketones Negative (Negative); Leukocyte Esterase Negative (Negative); Nitrite Negative (Negative); Urobilinogen 0.2 mg/dL (Up to 0.2)
[2022-11-12 14:43] LABS: *AMPHETAMINES SCREEN URINE Negative (Negative); *BARBITURATES SCREEN URINE Negative (Negative); *BENZODIAZEPINES SCREEN URINE Negative (Negative); Cannabinoids THC Negative (Negative); Cocaine Screen,Urine Negative (Negative); METHADONE URINE SCREEN Negative (Negative); OPIATES URINE SCREEN Negative (Negative)
[2022-11-12 14:45] LABS: Tricyclic Antidepressants Negative (Negative)
[2022-11-12 15:13] LABS: COVID-19 PCR Negative (Negative); Influenza A PCR Negative (Negative); Influenza B PCR Negative (Negative); RSV PCR Negative (Negative)
[2022-11-12 15:16] LABS: Source Nasopharynx
[2022-11-12 16:58] LABS: Procalcitonin < 0.1 ng/mL
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
--- NOTE | 2022-11-12 20:45 | DI.VRAD_ITS ---
PROCEDURE INFORMATION: Exam: CT Chest Without Contrast; Diagnostic Exam date and time: 11/12/2022 8:03 PM Age: 77 years old Clinical indication: Other: ? Infiltrates, xray results limited d/t poor inspi TECHNIQUE: Imaging protocol: Diagnostic computed tomography of the chest without contrast. 3D rendering (Not supervised by radiologist): MIP and/or 3D reconstructed images were created by the technologist. Radiation optimization: All CT scans at this facility use at least one of these dose optimization techniques: automated exposure control; mA and/or kV adjustment per patient size (includes targeted exams where dose is matched to clinical indication); or iterative reconstruction. COMPARISON: CT CHEST/ABD/PEL W 09/11/2022 12:18 PM FINDINGS: Lungs: Mild patchy interstitial infiltrates in both lungs largely appear similar to previous. Questionable mild acute infiltrate in the lingula. Pleural spaces: Unremarkable. No pneumothorax. No pleural effusion. Heart: Unremarkable. No cardiomegaly. No pericardial effusion. Coronary arteries: No significant coronary artery calcifications. Lymph nodes: Unremarkable. No enlarged lymph nodes. Vasculature: Moderate scattered atherosclerotic calcification of the aorta. No evidence of aneurysm. Bones/joints: Significant chronic appearing compression of the T10 and T12 vertebral bodies noted. No acute fracture evident. Soft tissues: Unremarkable. Other findings: Study somewhat limited by motion artifact. IMPRESSION: Study limited by motion artifact. Questionable mild acute infiltrate in the lingula. Otherwise stable chronic findings as noted. Dictated and Authenticated by: Ye Anna MD. Ordering:ROBEL Banegas MD
[2022-11-12] MEDS: Budesonide/Formoterol 160/4.5 6 GM 60 PUFF INH IH (21:46)
[2022-11-12] MEDS: Magnesium Oxide 400 MG TAB PO (22:08)
[2022-11-12] MEDS: Simvastatin 20 MG TAB PO (22:09)
[2022-11-12] MEDS: clonazePAM 1 MG TAB 0.5 MG PO (22:13)
[2022-11-12] MEDS: Propranolol 20 MG TAB PO (22:14)
[2022-11-12] MEDS: traMADol 50 MG TAB PO (22:14)
[2022-11-12] MEDS: Ziprasidone 20 MG CAP PO (22:14)
[2022-11-12] MEDS: Prazosin 2 MG CAP PO (22:16)
[2022-11-12] MEDS: Insulin Glargine 300 UNITS/3 ML PEN 15 UNITS SC (22:57)
[2022-11-13] MEDS: Acetaminophen 500 MG TAB 1000 MG PO (01:51)
[2022-11-13] MEDS: Melatonin 3 MG TAB PO (01:51)
[2022-11-13] MEDS: Levothyroxine 112 MCG TAB PO (06:31)
[2022-11-13] MEDS: Budesonide/Formoterol 160/4.5 6 GM 60 PUFF INH IH (07:55)
[2022-11-13 07:58] VITALS: BP 100/69; PULSE 64; RESP 18; TEMP 36.6; O2SAT 97
[2022-11-13] MEDS: Magnesium Oxide 400 MG TAB PO (09:08)
[2022-11-13] MEDS: Aspirin 81 MG CHEW PO (09:08)
[2022-11-13] MEDS: Propranolol 20 MG TAB PO ×2 (09:09→13:59)
[2022-11-13] MEDS: traMADol 50 MG TAB PO (09:09)
[2022-11-13] MEDS: Escitalopram 20 MG TAB PO (09:09)
[2022-11-13] MEDS: Furosemide 20 MG TAB PO (09:09)
[2022-11-13] MEDS: Calcium 600mg/Vit D 200U TAB 1 TAB PO (09:15)
[2022-11-13] MEDS: Insulin Glargine 300 UNITS/3 ML PEN 15 UNITS SC (09:16)
[2022-11-13] MEDS: Insulin Aspart 300 UNITS/3 ML PEN SC ×2 (09:17→17:16)
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
--- NOTE | 2022-11-13 12:07 | IN_ITS ---
PT Notes Visit Reasons: failure to thrive Inpatient Physical Therapy Evaluation Date: 11/13/2022 Referring Doctor:? Dr. Xavier PT Orders: PT CONSULT: Failure to thrive Precautions: Fall.? Standard. Activity as tolerated.? Patient Profile/Admitting Diagnosis:? Patient is a 77-year-old female with development delay,? tardive dyskinesia, cognitive developmental delay, and bipolar disorder admitted for failure to thrive. PT consult requested for evaluation and treatment of mobility impairments. PMHX: All Active Problems?(Updated 11/02/22 @ 23:10 by Cresencio Ramires) Hypokalemia (Acute) Failure to thrive syndrome, adult (Acute) Decreased activity (Acute) Hx of falling (Acute) Acute encephalopathy (Acute) Respiratory failure with hypoxia (Acute) Pulmonary hypertension (Chronic) Elevated hemidiaphragm (Acute) Asthma (Chronic) Poorly controlled type 2 diabetes mellitus (Chronic) Gastrostomy in place (Acute) Granuloma annulare (Acute) Lactose intolerance (Acute) Hiatal hernia (Chronic) Venous insufficiency (Acute) Tremor (Acute) Skin rash (Acute) Chest pain, rule out acute myocardial infarction (Acute) Ileus (Acute) Impaired decision making (Chronic) On tube feeding diet (Chronic) Aspiration pneumonia (Acute) Dysphagia (Chronic) IDDM (insulin dependent diabetes mellitus) (Chronic) Schizophrenia (Chronic) Tardive dyskinesia (Chronic) Ambulatory dysfunction (Acute) S/P percutaneous endoscopic gastrostomy (PEG) tube placement (Acute) Dysphagia causing pulmonary aspiration with swallowing (Chronic) Advance directive discussed with patient (Chronic) Chest pain (Acute) Atrial flutter (Chronic) Ambulatory dysfunction (Chronic) Migraine headache without aura (Chronic) Osteoporosis (Chronic) Type 2 diabetes mellitus (Chronic) Urgency incontinence (Chronic 05/01/15) Sensorineural hearing loss, bilateral (Chronic 01/07/15) Dysphagia, unspecified (Chronic 06/22/16) Medical History? Abnormal CT of the head Acute bronchitis Acute respiratory distress Adenomatous polyp of colon Altered mental status Altered mental status Asthma exacerbation Atrial flutter Arias's esophagus Bipolar disorder Chronic low back pain Cognitive developmental delay Depression with anxiety Developmental delay, borderline Diabetes mellitus type 2, controlled Diastolic heart failure Dysuria GERD (gastroesophageal reflux disease) Hearing loss Hyperlipidemia Hypertension Hypothyroidism Hypoxemia Hypoxia Influenza A Nausea and vomiting Neurogenic bladder Obesity Obstructive sleep apnea C-PAP removed due to noncomplianceOsteoarthritis Palliative care encounter Pneumonia Respiratory failure, unspecified with hypoxia Schizophrenia 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) Surgical History? H/O tubal ligation History of cataract surgery History of hernia repair History of hysterectomy with bilateral oophorectomy S/P cholecystectomy Social History/Home Situation:?Unable to obtain history from patient. The following is from her previous hospitalization 11/03/22: Philomena lived with her sister Chantal who provides assistance. There is a ramp to enter her sister's house.? Modified independent indoor using FWW. ? Equipment Owned/DME: Hospital bed, 4WW, CPAP machine Subjective: Patient unable to provide verbal subjective history. She responds to direct questions with one-word answers. Has pain complaints in LUE and left ribs. Objective: General Observation: Resting in bed. Dyskinesias at rest and with movement. Mental Status: Unable to assess. Pain: As above ROM: Right Upper Extremity: ? Shoulder Flexion WFL. Shoulder abduction WFL. Elbow flexion WFL. Wrist flexion WFL. Functional opening and closing of hand WFL. Left Upper Extremity:? Declines AROM left shoulder. Passive motion allows flexion to 120*, limited by pain. ER to 30* limited by pain. IR to abdomen. Right Lower Extremity: Hip flexion lacks about 50% of available range of motion. Hip abduction lacks about 50% of available range of motion. Knee flexion WFL. Ankle dorsiflexion WFL. Ankle plantarflexion WFL. Left Lower Extremity: Hip flexion lacks about 50% of available range of motion. Hip abduction lacks about 50% of available range of motion. Knee flexion WFL. Ankle dorsiflexion WFL. Ankle plantarflexion WFL. Strength: Right Upper Extremity: Shoulder flexors 4/5. Shoulder abductors 3/5. Elbow flexors 4/5. Elbow extensors 4/5. Staffing Mgr strong. Left Upper Extremity: unable to assess due to declining AROM due to pain Right Lower Extremity: Hip flexors 3-/5. Hip abductors 3-/5. Knee flexors 3-5. Knee extensors 3-/5. Ankle dorsiflexors 3/5. Ankle plantarflexors 3/5. Left Lower Extremity: Hip flexors 3-/5. Hip abductors 3-/5. Knee flexors 3-5. Knee extensors 3-/5. Ankle dorsiflexors 3/5. Ankle plantarflexors ? 3/5. Bed Mobility/Transfers: Supine-sit: independent Sit to stand: CGA Stand to sit: CGA Gait: Ambulates 10' with FWW, CGA. Requires cues for safety when turning. Balance: Static Sitting: good Dynamic Sitting: fair Static Standing: fair Dynamic Standing: fair Special Tests: Mobility Limitations Standardized Measure [facility] 6 clicks Basic Mobility Inpatient Short Form: Raw Score: 19 ? ? ? CMS Score: 42% impairment Informed Consent/Education:? Patient was instructed in purpose of PT consult and plan of care. Agreeable to proceed with established PT POC to achieve personal goals. ASSESSMENT: Patient presents with clinical signs and symptoms consistent with current/admitting diagnoses that have resulted to mobility limitations, gait instability, generalized weakness, and lack of motor control as demonstrated by the following impairment level findings: 1.? Decreased strength to B LE major muscle groups 2.? Impaired balance 3.? Impaired activity tolerance 4.? Limitation of joint range of motion in the hips (chronic) 5.? Dyskinesia (chronic) 6. Left shoulder pain Impairments are contributing to the following functional limitations: 1.? Inability to safely ambulate without assistive device 2.? Increase completion time for mobility ADL performance 3.? Increased fall risk 4.? Inability to negotiate steps alone safely Patient is assessed 85014 moderate complexity based on the following: History: Patient is a 78-year-old female with development delay,? tardive dyskinesia, cognitive developmental delay, and bipolar disorder admitted for management of adult failure to thrive. Examination: functional limitations as above Presentation: Evolving Decision Makin moderate complexity Goals: Goals X1 week 1. Supine-Sit independent 2. Sit-Supine independent 3. Sit-Stand independent with FWW 4. Stand-Sit independent with FWW 5. Bed-Chair independent with FWW 6. Chair-Bed independent with FWW 7.?Supervision withgait on level surface with use of FWW for at least 300 feet without report of pain nor dyspnea Plan of Care/Treatment Plan: 1-2x/day, 7 days/week x 1 week. Plan of care has been reviewed with the CREDIT CONTROL ASSISTANT providing the service under Physical Therapy direction. Initiate Physical Therapy intervention for strengthening, bed mobility, transfers, gait, stairs, balance training, use of assistive device. DISCHARGE RECOMMENDATIONS: [] ? Home with no services [] [] ? Home with services [] ? Home with outpatient PT [] [] ? SNF for continued rehabilitation [] [] ? Environmental Science Professor Care [] [] ? SNF versus LTC based on ability to participate and progress [] [X] SNF vs PT based on progress towards goals TREATMENT CODE/TIME: 32207 [id number] Thank you for the opportunity to participate in the care of this patient. Aby Vela, PT, DPT [facility] [place], [place]
--- NOTE | 2022-11-13 15:31 | PTTR_ITS ---
PT Notes Visit Reasons: failure to thrive Inpatient Physical Therapy Treatment Note [facility] Date: 11/13/2022 PRECAUTIONS: Fall.? Standard.? Activity as tolerated.? SUBJECTIVE: Indicated no when asked to take a walk with me, but willing to do some bed exercises this afternoon. Answered yes to getting up with nursing to go to bathroom, but did not need to go while I was with her. When asked if she had pain due to patient appearing uncomfortable she indicated pain in her left side. I asked if she would like me to check with nursing to see if there is anything she can take for pain she indicated yes. Nursing staff was made aware of this. OBJECTIVE: ? PAIN: Pain in left ribcage region. Had indicated pain in left shoulder also, earlier in day with supervising PT. Refused OOB and ambulation in pm. ? Therapeutic Exercises (05827l1): Direct one-on-one instruction in therapeutic exercises to develop strength, endurance, range of motion and flexibility. ? Exercises: Performed supine hip abd/adduction x 10 reps, quad sets x 10 reps and attempted hip flexion x3 reps, but this was noted to increase rib pain. Also, performed right UE bicep curls with assist x 10 reps, shoulder fle xion to 60 degrees x 5 reps and attempted gentle shoulder abduction to 60 degrees but patient appeared uncomfortable with this, so this was discontinued. ? Provided skilled instruction in proper exercise performance Provided skilled manual cues to facilitate proper muscle recruitment and/or form ASSESSMENT:?Will attempt continued exercises and ambulation with patient in the morning. PLAN: Continue with supervising PT's POC with focus on improved functional mobility and increased strengthening. TREATMENT CODE/TIME: 16809o5 - 3:00 to 3:10 pm (10 minutes)
[2022-11-13 15:40] VITALS: BP 119/60; PULSE 70; RESP 18; TEMP 37; O2SAT 96
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
--- NOTE | 2022-11-13 17:15 | CMSCP_ITS ---
Date of service: 11/13/22 Time of Service: 17:15 Swingbed Plan of Care Activites/Discharge Plan of care: SWING BED PROGRAM ACTIVITIES/DISCHARGE PLAN OF CARE ACTIVITIES PLAN Date: 11/13/22 Identified Need: Activities for life enrichment during prolonged hospitalization, which has transitioned to SWB level of care. Intervention/Plan: Individual plan for life enrichment, including TV with remote, music therapy, reiki, items from the activity cart, visits with sister. Initials DL DISCHARGE PLAN Date: 11/13/22 Identified Need: Safe disposition to SNF Intervention/Plan: SNF referrals are pending. CM work closely with pt, sister/DPADRIANA Chantal and [facility] CM Caryn Navarrete to support Philomena with her goals and placement. Initials DL
--- NOTE | 2022-11-13 17:22 | CM.SBPSYCH ---
Date of service: 11/13/22 Time of Service: 17:22 SB Psychosocial/Act. [facility] Hospital Admission Admission Date: 11/12/22 Admission From:: Sisters home in the community Diagnosis:: Failure to thrive Swing Bed Admission Swing Bed Admit Date:: 11/13/22 Swing Bed Level of Care: Level 1/SNF Social Supports PREVIOUS FUNCTIONAL STATUS/SOCIAL/FAMILY SUPPORTS:: Philomena resides in [facility] with her sister, Chantal, who is also her caregiver. Per Chantal, pt has 2 adult children that rarely visit. She has been on SSDI most of her life. Philomena formerly lived at a fpc but moved in with her sister 2 years ago. Pt requires assistance with her ADL's and URSULA's. She is able to ambulate at home without a walker with the help of her sister. Chantal advises that she has been working with her [facility] CM Caryn Georgie to try to find shelter placement because she has become increasingly confused and constantly gets in and out of bed at all hours of the night and also notes that she is not eating at home. Prior to Admission Living Arrangements/Environment Prior to Admission:: Lives with sister Chantal who is her DPOA and primary caregiver. Education Highest Grade Completed:: 8th grade Work History Employment Status:: Disabled [place]: No P[place]amo's Spouse: No Benefits Financial: Social Security, Medicare and Medicaid Advance Directives for Healthcare Advance Directives for Healthcare: Durable Power of Film Processing Supervisor for Healthcare Advance Directive Agent: Sister Chantal Rapp Interests Hobbies:: watching TV, formerly liked playing [employer] and card games TV/Movies:: Nothing in particular Present Functional Status Physical Abilities:: limited Medical History PAST MEDICAL HISTORY/PAST SURGICAL HISTORY:: All Active Problems (Updated 02/24/22 @ 06:51 by Yosef Aquino MD) Influenza A (Acute) Pulmonary hypertension (Acute) Elevated hemidiaphragm (Acute) Asthma exacerbation (Acute) Hypoxemia (Acute) Asthma (Acute) Pneumonia (Acute) Acute bronchitis (Acute) Poorly controlled type 2 diabetes mellitus (Acute) Pneumonia (Acute) Gastrostomy in place (Acute) Granuloma annulare (Acute) Lactose intolerance (Acute) Hiatal hernia (Chronic) Venous insufficiency (Acute) Tremor (Acute) Skin rash (Acute) Chest pain, rule out acute myocardial infarction (Acute) Ileus (Acute) Impaired decision making (Chronic) On tube feeding diet (Chronic) Aspiration pneumonia (Acute) Dysphagia (Chronic) IDDM (insulin dependent diabetes mellitus) (Chronic) Schizophrenia (Chronic) Tardive dyskinesia (Chronic) Ambulatory dysfunction (Acute) S/P percutaneous endoscopic gastrostomy (PEG) tube placement (Acute) Dysphagia causing pulmonary aspiration with swallowing (Chronic) Advance directive discussed with patient (Chronic) Chest pain (Acute) Atrial flutter (Chronic) DVT prophylaxis (Chronic) Ambulatory dysfunction (Chronic) Migraine headache without aura (Chronic) Osteoporosis (Chronic) Type 2 diabetes mellitus (Chronic) Urgency incontinence (Chronic 05/01/15) Sensorineural hearing loss, bilateral (Chronic 01/07/15) Dysphagia, unspecified (Chronic 06/22/16) Medical History Adenomatous polyp of colon Atrial flutter Arias's esophagus Bipolar disorder Chronic low back pain Cognitive developmental delay Depression with anxiety Developmental delay, borderline Diabetes mellitus type 2, controlled Diastolic heart failure Dysuria GERD (gastroesophageal reflux disease) Hearing loss Hyperlipidemia Hypertension Hypothyroidism Neurogenic bladder Obesity Obstructive sleep apnea C-PAP removed due to noncompliance Osteoarthritis Palliative care encounter Schizophrenia 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) Tardive dyskinesia (01/26/17) Surgical History H/O tubal ligation History of cataract surgery History of hernia repair History of hysterectomy with bilateral oophorectomy S/P cholecystectomy General Health:: Several comorbidities, failure to thrive at home Admission Data Reason for Swing Bed Admission:: Awaiting placement at SNF Discharge Plan:: Philomena continues to require assisted and PT services and will discharge to SNF. She will follow up with facility/community providers and her discharge plan of care as instructed. Assessment: Philomena verbalizes that she needs additional support at home and is agreeable to discharge to SNF. Plan is reviewed with sister, who also agrees with the plan. Apparatus Engineering Technologist: Mara Perez RN Date Assessment was completed:: 11/18/22
== END 2022-11-13 17:35 | disposition swing bed (61) ==
LOC: ER 16:52 → MS 17:21
PROVIDERS: Nurse Practitioner Acute Care; Admitting Provider Internal Medicine; Emergency Provider Emergency Medicine; PCP Family Medicine; Visit Provider Internal Medicine
DX: R62.7 Adult failure to thrive (principal); G93.40 Encephalopathy, unspecified; E11.65 Type 2 diabetes mellitus with hyperglycemia; I27.20 Pulmonary hypertension, unspecified; F20.9 Schizophrenia, unspecified; I48.92 Unspecified atrial flutter; G24.01 Drug induced subacute dyskinesia; R53.1 Weakness; E87.6 Hypokalemia; R29.6 Repeated falls; Z91.81 History of falling; K44.9 Diaphragmatic hernia without obstruction or gangrene; I87.8 Other specified disorders of veins; J45.909 Unspecified asthma, uncomplicated; G43.009 Migraine without aura, not intractable, without status migrainosus; H90.3 Sensorineural hearing loss, bilateral; G47.33 Obstructive sleep apnea (adult) (pediatric); G25.71 Drug induced akathisia; Z66 Do not resuscitate; Z79.4 Long term (current) use of insulin; Z79.85 Long-term (current) use of injectable non-insulin antidiabetic drugs; Z79.899 Other long term (current) drug therapy
CPT/HCPCS: 71250; 80053; 80307; 82550; 84145; 87637; 94640; 96361; 96374; 99285; 70450; 71046; 81003; 83735; 84443; 84484; 85025; 85610; 85730; 94664; 99223; 99239; G0378; J1200

== ENCOUNTER 2022-11-13 17:39 | Inpatient (IN) | payer OTHER, MEDICAID, SELFPAY ==
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
[2022-11-13] MEDS: traMADol 50 MG TAB PO (19:13)
[2022-11-13] MEDS: Propranolol 20 MG TAB PO (19:14)
[2022-11-13] MEDS: Magnesium Oxide 400 MG TAB PO (19:14)
[2022-11-13] MEDS: Simvastatin 20 MG TAB PO (19:14)
[2022-11-13] MEDS: Insulin Glargine 300 UNITS/3 ML PEN 15 UNITS SC (19:16)
[2022-11-13] MEDS: Budesonide/Formoterol 160/4.5 6 GM 60 PUFF INH IH (19:44)
[2022-11-13] MEDS: Mylanta Suspension 30 ML CUP PO (19:49)
[2022-11-13] MEDS: Miconazole 2% Topical Powder 85 GM BTL TP (19:52)
[2022-11-13] MEDS: clonazePAM 0.5 MG TAB PO (21:58)
[2022-11-13] MEDS: Insulin Aspart 300 UNITS/3 ML PEN SC (21:58)
[2022-11-13] MEDS: Ziprasidone 20 MG CAP PO (21:59)
[2022-11-13] MEDS: Prazosin 2 MG CAP PO (21:59)
[2022-11-14] MEDS: Levothyroxine 112 MCG TAB PO (06:51)
[2022-11-14 07:50] VITALS: BP 100/66; PULSE 80; RESP 22; TEMP 36.7; O2SAT 95
[2022-11-14] MEDS: Budesonide/Formoterol 160/4.5 6 GM 60 PUFF INH IH ×2 (08:20→21:10)
[2022-11-14] MEDS: Aspirin 81 MG CHEW PO (08:30)
[2022-11-14] MEDS: Propranolol 20 MG TAB PO ×3 (08:31→21:09)
[2022-11-14] MEDS: Magnesium Oxide 400 MG TAB PO ×2 (08:31→21:09)
[2022-11-14] MEDS: Furosemide 20 MG TAB PO (08:31)
[2022-11-14] MEDS: Escitalopram 20 MG TAB PO (08:31)
[2022-11-14] MEDS: traMADol 50 MG TAB PO ×2 (08:31→21:13)
[2022-11-14] MEDS: Lansoprazole 30 MG CAPCR 60 MG PO (08:31)
[2022-11-14] MEDS: Calcium 600mg/Vit D 200U TAB 1 TAB PO (08:31)
[2022-11-14] MEDS: Insulin Glargine 300 UNITS/3 ML PEN 15 UNITS SC ×2 (08:33→21:10)
[2022-11-14] MEDS: Insulin Aspart 300 UNITS/3 ML PEN SC ×4 (08:33→23:22)
[2022-11-14] MEDS: Miconazole 2% Topical Powder 85 GM BTL TP ×2 (08:37→21:12)
--- NOTE | 2022-11-14 08:54 | IN_ITS ---
Date of service: 11/14/22 Time of Service: 08:40 PT Notes Visit Reasons: Swingbed Inpatient Physical Therapy Evaluation Date: November 14, 2022 Referring Doctor: Amanuel Lomeli PT Orders: PT CONSULT: Extended stay-weakness Swing bed Precautions: Fall.? Standard.? Activity as tolerated.? Patient Profile/Admitting Diagnosis:? Patient is a 77-year-old female with development delay,? tardive dyskinesia, cognitive developmental delay, and bipolar disorder admitted for failure to thrive. PT consult requested for evaluation and treatment of mobility impairments swing bed status for extended stay weakness. PMHX: All Active Problems?(Updated 11/02/22 @ 23:10 by Cresencio Ramires) Hypokalemia (Acute) Failure to thrive syndrome, adult (Acute) Decreased activity (Acute) Hx of falling (Acute) Acute encephalopathy (Acute) Respiratory failure with hypoxia (Acute) Pulmonary hypertension (Chronic) Elevated hemidiaphragm (Acute) Asthma (Chronic) Poorly controlled type 2 diabetes mellitus (Chronic) Gastrostomy in place (Acute) Granuloma annulare (Acute) Lactose intolerance (Acute) Hiatal hernia (Chronic) Venous insufficiency (Acute) Tremor (Acute) Skin rash (Acute) Chest pain, rule out acute myocardial infarction (Acute) Ileus (Acute) Impaired decision making (Chronic) On tube feeding diet (Chronic) Aspiration pneumonia (Acute) Dysphagia (Chronic) IDDM (insulin dependent diabetes mellitus) (Chronic) Schizophrenia (Chronic) Tardive dyskinesia (Chronic) Ambulatory dysfunction (Acute) S/P percutaneous endoscopic gastrostomy (PEG) tube placement (Acute) Dysphagia causing pulmonary aspiration with swallowing (Chronic) Advance directive discussed with patient (Chronic) Chest pain (Acute) Atrial flutter (Chronic) Ambulatory dysfunction (Chronic) Migraine headache without aura (Chronic) Osteoporosis (Chronic) Type 2 diabetes mellitus (Chronic) Urgency incontinence (Chronic 05/01/15) Sensorineural hearing loss, bilateral (Chronic 01/07/15) Dysphagia, unspecified (Chronic 06/22/16) Medical History? Abnormal CT of the head Acute bronchitis Acute respiratory distress Adenomatous polyp of colon Altered mental status Altered mental status Asthma exacerbation Atrial flutter Arias's esophagus Bipolar disorder Chronic low back pain Cognitive developmental delay Depression with anxiety Developmental delay, borderline Diabetes mellitus type 2, controlled Diastolic heart failure Dysuria GERD (gastroesophageal reflux disease) Hearing loss Hyperlipidemia Hypertension Hypothyroidism Hypoxemia Hypoxia Influenza A Nausea and vomiting Neurogenic bladder Obesity Obstructive sleep apnea C-PAP removed due to noncomplianceOsteoarthritis Palliative care encounter Pneumonia Respiratory failure, unspecified with hypoxia Schizophrenia 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) Surgical History? H/O tubal ligation History of cataract surgery History of hernia repair History of hysterectomy with bilateral oophorectomy S/P cholecystectomy Social History/Home Situation:?Unable to obtain history from patient. The following is from her previous hospitalization 11/03/22: Philomena lived with her sister Chantal who provides assistance. There is a ramp to enter her sister's house.? Modified independent indoor using FWW. ? Equipment Owned/DME:Hospital bed, 4WW, CPAP machine Subjective: Patient unable to provide verbal subjective history. She responds to direct questions with one-word answers. Has pain complaints in LUE and left ribs. Objective: General Observation: Resting in chair from breakfast. Dyskinesias at rest and with movement. Mental Status: Unable to assess. Pain: As above ROM: Right Upper Extremity: ? Shoulder Flexion WFL. Shoulder abduction WFL. Elbow flexion WFL. Wrist flexion WFL. Functional opening and closing of hand WFL. Left Upper Extremity:? Declines AROM left shoulder. Passive motion allows flexi on to 120*, limited by pain. ER to 30* limited by pain. IR to abdomen. Right Lower Extremity: Hip flexion lacks about 50% of available range of motion. Hip abduction lacks about 50% of available range of motion. Knee flexion WFL. Ankle dorsiflexion WFL. Ankle plantarflexion WFL. Left Lower Extremity: Hip flexion lacks about 50% of available range of motion. Hip abduction lacks about 50% of available range of motion. Knee flexion WFL. Ankle dorsiflexion WFL. Ankle plantarflexion WFL. Strength: Right Upper Extremity: Shoulder flexors 4/5. Shoulder abductors 3/5. Elbow flexors 4/5. Elbow extensors 4/5. Laser Print Operator strong. Left Upper Extremity: unable to assess due to declining AROM due to pain Right Lower Extremity: Hip flexors 3-/5. Hip abductors 3-/5. Knee flexors 3-5. Knee extensors 3-/5. Ankle dorsiflexors 3/5. Ankle plantarflexors 3/5. Left Lower Extremity: Hip flexors 3-/5. Hip abductors 3-/5. Knee flexors 3-5. Knee extensors 3-/5. Ankle dorsiflexors 3/5. Ankle plantarflexors ? 3/5. Bed Mobility/Transfers: Supine-sit: independent Sit to stand: CGA Stand to sit: CGA Gait: Ambulates 10' with FWW, CGA. Requires cues for safety when turning. Balance: Static Sitting: good Dynamic Sitting: fair Static Standing: fair Dynamic Standing: fair Special Tests: Mobility Limitations Standardized Measure [facility] AM-PAC 6 clicks Basic Mobility Inpatient Short Form: Raw Score: 19 ? ? ? CMS Score: 42% impairment Informed Consent/Education:? Patient was instructed in purpose of PT consult and plan of care.? Agreeable to proceed with established PT POC to achieve personal goals. ASSESSMENT: Patient presents with clinical signs and symptoms consistent with current/admitting diagnoses that have resulted to mobility limitations, gait instability, generalized weakness, and lack of motor control as demonstrated by the following impairment level findings: 1.? Decreased strength to B LE major muscle groups 2.? Impaired balance 3.? Impaired activity tolerance 4.? Limitation of joint range of motion in the hips (chronic) 5.? Dyskinesia (chronic) 6.? Left shoulder pain Impairments are contributing to the following functional limitations: 1.? Inability to safely ambulate without assistive device 2.? Increase completion time for mobility ADL performance 3.? Increased fall risk 4.? Inability to negotiate steps alone safely Patient is assessed 87045 moderate complexity based on the following: History: Patient is a 77-year-old female with development delay,? tardive dyskinesia, cognitive developmental delay, and bipolar disorder admitted for management of adult failure to thrive. Examination: functional limitations as above Presentation: Evolving Decision Makin moderate complexity Goals: Goals X1 week 1. Supine-Sit independent 2. Sit-Supine independent 3. Sit-Stand independent with FWW 4. Stand-Sit independent with FWW 5. Bed-Chair independent with FWW 6. Chair-Bed independent with FWW 7.?Supervision with gait on level surface with use of FWW for at least 300 feet without report of pain nor dyspnea Plan of Care/Treatment Plan: 1-2x/day, 7 days/week x 1 week. Plan of care has been reviewed with the MAJOR DONOR COORDINATOR providing the service under Physical Therapy direction. Initiate Physical Therapy intervention for strengthening, bed mobility, transfers, gait, stairs, balance training, use of assistive device. DISCHARGE RECOMMENDATIONS: SNF vs PT based on progress towards goals TREATMENT CODE/TIME: 77800 20 minutes 8:40 am [facility] Disclaimer: This note was created using [employer] voice recognition software. It was reviewed for major content. However, there may be multiple small discrepancies and errors due to the voice recognition aspects of the software.
[2022-11-14] MEDS: Acetaminophen 325 MG TAB 650 MG PO (15:24)
[2022-11-14 15:59] VITALS: BP 124/58; PULSE 71; RESP 20; TEMP 36.6; O2SAT 94
[2022-11-14] MEDS: Simvastatin 20 MG TAB PO (21:13)
[2022-11-14 21:57] VITALS: BP 126/83; PULSE 75; RESP 20; TEMP 36.5; O2SAT 96
[2022-11-14] MEDS: Ziprasidone 20 MG CAP PO (23:21)
[2022-11-14] MEDS: clonazePAM 0.5 MG TAB PO (23:21)
[2022-11-14] MEDS: Prazosin 2 MG CAP PO (23:21)
[2022-11-14] MEDS: Melatonin 3 MG TAB PO (23:21)
[2022-11-14 23:26] VITALS: BP 125/84; PULSE 78; RESP 18; TEMP 36.5; O2SAT 96
[2022-11-15] MEDS: Levothyroxine 112 MCG TAB PO (06:48)
[2022-11-15] MEDS: Aspirin 81 MG CHEW PO (07:41)
[2022-11-15] MEDS: Lansoprazole 30 MG CAPCR 60 MG PO (07:41)
[2022-11-15] MEDS: traMADol 50 MG TAB PO ×2 (07:41→21:47)
[2022-11-15] MEDS: Propranolol 20 MG TAB PO ×3 (07:41→21:45)
[2022-11-15] MEDS: Furosemide 20 MG TAB PO (07:42)
[2022-11-15] MEDS: Escitalopram 20 MG TAB PO (07:42)
[2022-11-15] MEDS: Calcium 600mg/Vit D 200U TAB 1 TAB PO (07:42)
[2022-11-15] MEDS: Magnesium Oxide 400 MG TAB PO ×2 (07:42→21:46)
[2022-11-15] MEDS: Miconazole 2% Topical Powder 85 GM BTL TP ×2 (07:43→21:50)
[2022-11-15] MEDS: Budesonide/Formoterol 160/4.5 6 GM 60 PUFF INH IH ×2 (08:03→19:05)
[2022-11-15 08:05] VITALS: BP 117/58; PULSE 80; RESP 16; TEMP 36.3; O2SAT 97
--- NOTE | 2022-11-15 08:12 | PT.INTREAT ---
Date of service: 11/15/22 PT Notes Visit Reasons: Failure to Thrive Inpatient Physical Therapy Treatment Note [facility] Date: 11/15/2022 PRECAUTIONS: Fall.? Standard.? Activity as tolerated.? SUBJECTIVE: When asked how far she has to walk when at home to get to restroom or kitchen she indicated yes to 20-30ft. Discussed importance of being able to walk this distance when she gets discharged from hospital. OBJECTIVE: ? PAIN: Indicated no to having pain this morning. ??? Therapeutic Activities ([id number]): Direct one-on-one instruction in dynamic activities to improve functional performance. ? BED MOBILITY/TRANSFERS? Rolling L/R: Independent with rolling to left Supine-sit: SBA and cueing for safety? Sit-stand: SBA and cueing for safety? Stand-sit: SBA and cueing for safety? Provided skilled cues and instruction on performance and technique throughout. ? GAIT? Assistive Device: FWW? Weight bearing: Full Assist: CGA? Distance:? 20ft ? Deviation: Flexed forward at hips, short and guarded steps ? Therapeutic Exercises (36161p9): Direct one-on-one instruction in therapeutic exercises to develop strength, endurance, range of motion and flexibility. ? Exercises Performed LAQs x 10 reps, seated marching ?x 8 reps, seated hip abd/add x 10 reps, bicep curls x 5 reps and shoulder horizontal abd/add x 5 reps each. ? Provided skilled instruction in proper exercise performance Provided skilled manual cues to facilitate proper muscle recruitment and/or form, tends to stop at 5 reps with each exercise but is able to continue with verbal/ contact cueing. ASSESSMENT:? Tolerated fair, seemed a bit more motivated today than yesterday. PLAN: Continue with current plan of care with focus on improved functional mobility. TREATMENT CODE/TIME: [id number], 7:50 to 8:15 am (25')
[2022-11-15] MEDS: Insulin Aspart 300 UNITS/3 ML PEN SC ×2 (08:40→17:03)
[2022-11-15] MEDS: Insulin Glargine 300 UNITS/3 ML PEN 15 UNITS SC ×2 (08:41→21:50)
[2022-11-15 15:39] VITALS: BP 106/69; PULSE 71; RESP 18; TEMP 36.4; O2SAT 95
[2022-11-15 21:40] VITALS: BP 109/58; PULSE 73; RESP 18; TEMP 36.5; O2SAT 96
[2022-11-15] MEDS: Prazosin 2 MG CAP PO (21:44)
[2022-11-15] MEDS: clonazePAM 0.5 MG TAB PO (21:47)
[2022-11-15] MEDS: Simvastatin 20 MG TAB PO (21:47)
[2022-11-15] MEDS: Ziprasidone 20 MG CAP PO (22:38)
[2022-11-15 22:39] VITALS: BP 115/69
[2022-11-16] MEDS: Melatonin 3 MG TAB PO ×2 (00:08→22:44)
[2022-11-16] MEDS: Acetaminophen 500 MG TAB 1000 MG PO (00:08)
[2022-11-16 06:37] VITALS: BP 145/85; PULSE 74; RESP 18; TEMP 35.5; O2SAT 94
[2022-11-16] MEDS: Levothyroxine 112 MCG TAB PO (06:44)
[2022-11-16] MEDS: Miconazole 2% Topical Powder 85 GM BTL TP ×2 (07:54→19:58)
[2022-11-16] MEDS: Lansoprazole 30 MG CAPCR 60 MG PO (07:54)
[2022-11-16] MEDS: Magnesium Oxide 400 MG TAB PO ×2 (07:55→19:44)
[2022-11-16] MEDS: traMADol 50 MG TAB PO ×2 (07:55→19:44)
[2022-11-16] MEDS: Furosemide 20 MG TAB PO (07:55)
[2022-11-16] MEDS: Insulin Glargine 300 UNITS/3 ML PEN 15 UNITS SC ×2 (07:55→19:58)
[2022-11-16] MEDS: Aspirin 81 MG CHEW PO (07:55)
[2022-11-16] MEDS: Escitalopram 20 MG TAB PO (07:55)
[2022-11-16] MEDS: Calcium 600mg/Vit D 200U TAB 1 TAB PO (07:55)
[2022-11-16] MEDS: Propranolol 20 MG TAB PO ×3 (07:55→19:44)
[2022-11-16] MEDS: Budesonide/Formoterol 160/4.5 6 GM 60 PUFF INH IH ×2 (08:48→19:07)
--- NOTE | 2022-11-16 11:46 | PT.INTREAT ---
PT Notes Visit Reasons: Failure to Thrive Inpatient Physical Therapy Treatment Note [facility] Date: 11/16/22 SUBJECTIVE: Non verbal, but was making a lot of grunting noises. Appeared agitated. When asked if she wanted ot get up she started getting herself OOB. Denied pain. OBJECTIVE: []? Therapeutic Activities ([id number]): Direct one-on-one instruction in dynamic activities to improve functional performance. ? BED MOBILITY/TRANSFERS? Rolling L/R: I Supine-sit: I ? Sit-stand: CGA? Stand-sit: CGA? Bed-Chair: CGA alarm in place. ? Provided skilled cues and instruction on performance and technique throughout. ? GAIT? Assistive Device:FWW? Weight bearing: full Assist: CGA ? Distance:?10'. Refused to go any further ? ASSESSMENT:?unsure what is/was bothering Philomena today. Attempted a few exercises but she refused. When asked if she had enough, she clearly stated YES PLAN: will check in with her in am continuing to work on her strength and functional mobility. TREATMENT CODE/TIME:10 min [id number]
[2022-11-16 13:23] VITALS: BP 110/73
[2022-11-16 15:06] VITALS: BP 118/84; PULSE 69; TEMP 36.7; O2SAT 94
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
[2022-11-16] MEDS: Simvastatin 20 MG TAB PO (19:44)
[2022-11-16] MEDS: Insulin Aspart 300 UNITS/3 ML PEN SC (19:59)
[2022-11-16] MEDS: clonazePAM 0.5 MG TAB PO (22:44)
[2022-11-16] MEDS: Prazosin 2 MG CAP PO (22:44)
[2022-11-16] MEDS: Ziprasidone 20 MG CAP PO (22:44)
[2022-11-17] MEDS: Levothyroxine 112 MCG TAB PO (05:34)
[2022-11-17] MEDS: Magnesium Oxide 400 MG TAB PO ×2 (07:43→21:32)
[2022-11-17] MEDS: Escitalopram 20 MG TAB PO (07:43)
[2022-11-17] MEDS: Furosemide 20 MG TAB PO (07:43)
[2022-11-17] MEDS: Lansoprazole 30 MG CAPCR 60 MG PO (07:43)
[2022-11-17] MEDS: Calcium 600mg/Vit D 200U TAB 1 TAB PO (07:43)
[2022-11-17] MEDS: Aspirin 81 MG CHEW PO (07:44)
[2022-11-17] MEDS: traMADol 50 MG TAB PO ×2 (07:44→21:32)
[2022-11-17] MEDS: Miconazole 2% Topical Powder 85 GM BTL TP ×2 (07:44→21:36)
[2022-11-17] MEDS: Propranolol 20 MG TAB PO ×3 (07:45→21:32)
[2022-11-17] MEDS: Insulin Glargine 300 UNITS/3 ML PEN 15 UNITS SC ×2 (07:46→21:54)
[2022-11-17 08:01] VITALS: BP 100/65; PULSE 69; RESP 18; TEMP 36.1; O2SAT 94
[2022-11-17] MEDS: Budesonide/Formoterol 160/4.5 6 GM 60 PUFF INH IH ×2 (08:55→19:00)
--- NOTE | 2022-11-17 09:46 | RESPIRATORY ---
Noted in medical history that C-PAP removed due to noncompliance
[2022-11-17] MEDS: Insulin Aspart 300 UNITS/3 ML PEN SC ×3 (11:26→21:33)
--- NOTE | 2022-11-17 11:32 | W.NUTRFU ---
Date of service: 11/17/22 Time of Service: 11:32 Nutrition Note NOTE: Ms Adames is a 77yo female admitted with adult FTT along with a significant number of chronic conditions, including DM II which is noted as being poorly controlled in the past. Most recent A1c last June was 6.7 and is the lowest value since 2018. Fair to good intake noted at meals - tolerating CHO consistent diet with soft/bite size textures due to no dentures here. Current BMI of 27.4 indicates overweight, however is a desired BMI at her age group. Milk lactose intolerance noted and relayed to kitchen staff to be aware of for menu selections. Weight has been stable during admission. As Philomena requires support with daily living, offering diabetes education is not appropriate at this time. Will monitor closer to discharge in hopes to discuss diabetes menu planning with whomever might be supporting her after discharge. Time Spent in Nutritional Counseling and Treatment: 0
--- NOTE | 2022-11-17 12:49 | W.PM.PROGNOT ---
Date of Service Date of service: 11/17/22 Time of Service: 12:49 Assessment and Plan Assessment and plan (1) Failure to thrive syndrome, adult: Assessment and plan: She has no oxygen requirements with O2 sat in the high 90's. no elevated white count. no evidence of dehydration Has been eating 100% of her meals and she independently drinks the beverages prepared by nursing and left at the bedside. Weight is up 2 kg She is a DNR/DNI. (2) Asthma: Assessment and plan: No evidence of exacerbation presently with patient to be continued on outpatient respiratory therapy. She is not oxygen dependent. (3) Poorly controlled type 2 diabetes mellitus: Status: Chronic Assessment and plan: Glucometer measurements with short acting insulin coverage holding usual outpatient therapy which includes Trulicity, glargine and insulin coverage. glucose has been ranging ~ 130s Since she has decreased intake her treatment may be modified as an outpatient once stabilized. (4) Pulmonary hypertension: Assessment and plan: By history with patient having follow-up with pulmonology (5) Schizophrenia: Status: Chronic Assessment and plan: Continue outpatient medical therapy, she has no untoward behavior, pleasant and cooperative. discussed with Dr Romero. Subjective Subjective Patient reports: no new complaints, tolerating liquids well, tolerating a regular diet and afebrile; denies diarrhea, nausea or vomiting Interval history since last seen: Pleasant, cooperative, awake, alert, sitting up in bed. Exam Const General: comfortable and no acute distress Nutritional Appearance: average body habitus Orientation: alert, awake and oriented x3 HENMT Head: normal to inspection, normocephalic and atraumatic Mouth: oral mucosae normal Resp Effort & Inspection: normal respiratory effort Auscultation: clear to auscultation bilaterally Cardio Rate: regular rate Rhythm: regular rhythm GI Inspection: normal to inspection Skin Rashes: no rashes Neuro General: patient alert, patient awake and no focal motor deficits Extrem General: normal to inspection and full ROM Psych Mental Status: other Speech and Movement: other Mood: other Affect: blunted Objective Last Vital Signs Temp 36.1 C L 11/17/22 08:01 Pulse 69 11/17/22 08:01 Resp 18 11/17/22 08:01 BP 100/65 11/17/22 08:01 Pulse Ox 94 11/17/22 08:01 PAWSS Have you Been Recently Intoxicated or Drunk Within the Last 30 days?: No Result: 0 Time Spent with Patient Time Spent with Patient: 35-49 minutes Time was spent: preparing to see the patient(eg.review tests), ordering medications,tests, procedures, referring, communicating with other health healthcare science specialist, indepentently interpreting results, counseling the patient and care coordination
[2022-11-17 15:28] VITALS: BP 108/63; PULSE 77; RESP 16; TEMP 36.1; O2SAT 93
--- NOTE | 2022-11-17 17:18 | PTTR_ITS ---
Date of service: 11/17/22 Time of Service: 04:11 PT Notes Visit Reasons: Failure to Thrive Inpatient Physical Therapy Treatment Note [facility] Date: 11/17/2022 PRECAUTIONS: Fall. Standard. Activity as tolerated. SUBJECTIVE: Agreeable to sessions in the AM and PM. OBJECTIVE: ? PAIN: No verbal and bodily expression of pain thoughout VITALS: Stable as closely monitored by nursing staff ? THERA ACT: Direct one-on-one instruction in dynamic activities to improve functional performance while performing bed mobility, transfers, and ambulation below: ? BED MOBILITY/TRANSFERS? Rolling L/R: supervision Supine-sit: supervision? Sit-supine: contact guard assist ? Sit-stand: stand by assist?with FWW ? Stand-sit: stand by assist?with FWW ? Bed-Chair: stand by assist?with FWW ? Chair-bed: stand by assist?with FWW ? GAIT? Assistive Device: FWW? Weight bearing: FWB Assist: CGA ? Distance:? 10 feet in AM; 20 feet in PM ? Deviation: Chronic movement dykinesia limiting safety of gait. Step height and length asymmetric SKILLING for gait included: [] employing an assistive device [] modified weight-bearing status [] movement sequencing [X] turning and movement with proper form [X] Provided verbal cues for equipment management and technique [X] Provided instruction in gait pattern [] Patient education regarding pacing and breathing techniques to maximize activity tolerance? STAIRS: Not performed ? THERA EX: Direct one-on-one instruction in therapeutic exercises to develop strength, endurance, range of motion and flexibility. Seated marches x 7 B LAQs x 10 Ankle Df/PF x 10 Seated hip abduction x 10 B shoulder flexion x 3 ASSESSMENT:? Chronic tardive dyskinesia is limiting activity tolerance for walking and exercise participation. Will require gradual progression of activities to achieve goals initially set on PT POC. PLAN: Progress mobility level as tolerated by patient. DISCHARGE RECOMMENDATIONS: [] [] Home with no services [] [] Home with services [specify] [] Home with outpatient PT [] [] SNF for continued rehabilitation [] [] Half-Way Care [] [X] SNF versus LTC based on ability to participate/progress and to ability/corinne ilability of caregiver(s) TREATMENT CODE/TIME: Session 1--72173 x 17 minutes for 1 unit beginning at 11:33 AM Session 2--58907 x 14 minutes for 1 unit, 79861 x 10 minutes beginning at 16:11 PM.
[2022-11-17] MEDS: Ziprasidone 20 MG CAP PO (21:32)
[2022-11-17] MEDS: Melatonin 3 MG TAB PO (21:32)
[2022-11-17] MEDS: Prazosin 2 MG CAP PO (21:32)
[2022-11-17] MEDS: clonazePAM 0.5 MG TAB PO (21:32)
[2022-11-17] MEDS: Simvastatin 20 MG TAB PO (21:32)
[2022-11-18 00:48] VITALS: BP 132/58; PULSE 74; RESP 16; TEMP 35.5; O2SAT 94
[2022-11-18] MEDS: Levothyroxine 112 MCG TAB PO (06:30)
[2022-11-18 07:01] LABS: Abs Immature Grans 0.01 10^3/uL (0.0-0.06); Absolute Basophil Count 0.06 10^3/uL (0.0-0.2); Absolute Eosinophil Count 0.31 10^3/uL (0.0-0.7); Absolute Monocyte Count 0.72 10^3/uL (0.1-0.8); Absolute Neutrophil Count 2.75 10^3/uL (1.2-6.7); Basophils % 0.8; Eosinophils % 4.1; HCT 41.3 % (36.0-46.0); HGB 14.2 g/dL (11.2-15.7); Immature Grans % 0.1; Lymphocytes % 49.7; MCH 31.8 pg (27.0-33.0); MCHC 34.4 % (32.0-36.0); MCV 93 fL (80-95); MPV 10.3 fL (8.0-11.0); Monocytes % 9.4; Neutrophils % 35.9; Platelet Count 248 10^3/uL (130-400); RBC 4.46 10^6/uL (3.93-5.22); RDW 11.6 % (11.7-14.6); RDW-SD 39.2 fL; WBC 7.65 10^3/uL (4.4-10.8)
[2022-11-18 07:11] LABS: Anion Gap 7.9 mmol/L (3-11); BUN 15 mg/dL (7-18); C-Reactive Protein 0.36 mg/dL (0.0-0.3); CO2 29.1 mmol/L (21.0-32.0); Calcium 9.4 mg/dL (8.5-10.1); Chloride 103 mmol/L (98-107); Estimated GFR 58.75 (mL/min/1.73m2); Glucose 169 mg/dL (74-106); Magnesium 2.1 mg/dL (1.8-2.4); Potassium 3.8 mmol/L (3.5-5.1); Sodium 140 mmol/L (136-145)
[2022-11-18] MEDS: Aspirin 81 MG CHEW PO (07:24)
[2022-11-18] MEDS: traMADol 50 MG TAB PO (07:24)
[2022-11-18] MEDS: Magnesium Oxide 400 MG TAB PO (07:24)
[2022-11-18] MEDS: Calcium 600mg/Vit D 200U TAB 1 TAB PO (07:25)
[2022-11-18] MEDS: Lansoprazole 30 MG CAPCR 60 MG PO (07:25)
[2022-11-18] MEDS: Escitalopram 20 MG TAB PO (07:25)
[2022-11-18] MEDS: Furosemide 20 MG TAB PO (07:25)
[2022-11-18] MEDS: Propranolol 20 MG TAB PO (07:25)
[2022-11-18] MEDS: Miconazole 2% Topical Powder 85 GM BTL TP (07:26)
[2022-11-18] MEDS: Insulin Aspart 300 UNITS/3 ML PEN SC (07:27)
[2022-11-18] MEDS: Insulin Glargine 300 UNITS/3 ML PEN 15 UNITS SC (07:28)
[2022-11-18 07:31] VITALS: BP 120/77; PULSE 77; RESP 20; TEMP 36.8; O2SAT 94
[2022-11-18] MEDS: Budesonide/Formoterol 160/4.5 6 GM 60 PUFF INH IH (07:57)
[2022-11-18 07:58] LABS: Procalcitonin < 0.1 ng/mL
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
--- NOTE | 2022-11-18 11:41 | CMDISCH_ITS ---
Date of service: 11/18/22 Time of Service: 11:41 LACE Index Scoring Tool Questions: Length of Stay (in days): 4 - 6 Was the patient admitted via the E.D.?: Yes Comorbidities: Cerebrovascular Disease, Diabetes w/o Complication and with End Organ Damage E.D. Visits: 10 Answers: Total Score: 16 Risk of Readmission: High Risk Care Management Discharge Plan Reason for Hospitalization: Failure to thrive Discharge Plan: Philomena continues to require [facility] and PT services and is discharged to [facility]. She will follow up with facility/community providers and her discharge plan of care as instructed. She is driven via facility w/c van. Patient/Family Education Needs: Review discharge instructions, limitations, medications and plan to follow up with community providers. Discuss ask me three. Services Needed at Discharge: [facility] ([facility])
--- NOTE | 2022-11-18 12:28 | NUR.NOTE ---
Nursing Note: [facility]
--- NOTE | 2022-11-19 08:57 | PT.INDS ---
PT Notes Visit Reasons: Failure to Thrive Inpatient Physical Therapy Discharge Summary Date: November 19, 2022 Dates of Service: 11/14/22 - 11/17/22 Referring Doctor: Amanuel Lomeli PT Orders: PT CONSULT: Extended stay-weakness Swing bed This document serves as a summary of care. No PT services were provided on this date. Patient Profile/Admitting Diagnosis:? Patient is a 77-year-old female with development delay,? tardive dyskinesia, cognitive developmental delay, and bipolar disorder admitted for failure to thrive. PT consult requested for evaluation and treatment of mobility impairments swing bed status for extended stay weakness. Patient participated in 4 sessions of PT intervention over the course of 4 days. She demonstrated subtle improvements in mobility, although requires transition to SNF for continued rehabilitation. PMHX: All Active Problems?(Updated 11/02/22 @ 23:10 by Cresencio Ramires) Hypokalemia (Acute) Failure to thrive syndrome, adult (Acute) Decreased activity (Acute) Hx of falling (Acute) Acute encephalopathy (Acute) Respiratory failure with hypoxia (Acute) Pulmonary hypertension (Chronic) Elevated hemidiaphragm (Acute) Asthma (Chronic) Poorly controlled type 2 diabetes mellitus (Chronic) Gastrostomy in place (Acute) Granuloma annulare (Acute) Lactose intolerance (Acute) Hiatal hernia (Chronic) Venous insufficiency (Acute) Tremor (Acute) Skin rash (Acute) Chest pain, rule out acute myocardial infarction (Acute) Ileus (Acute) Impaired decision making (Chronic) On tube feeding diet (Chronic) Aspiration pneumonia (Acute) Dysphagia (Chronic) IDDM (insulin dependent diabetes mellitus) (Chronic) Schizophrenia (Chronic) Tardive dyskinesia (Chronic) Ambulatory dysfunction (Acute) S/P percutaneous endoscopic gastrostomy (PEG) tube placement (Acute) Dysphagia causing pulmonary aspiration with swallowing (Chronic) Advance directive discussed with patient (Chronic) Chest pain (Acute) Atrial flutter (Chronic) Ambulatory dysfunction (Chronic) Migraine headache without aura (Chronic) Osteoporosis (Chronic) Type 2 diabetes mellitus (Chronic) Urgency incontinence (Chronic 05/01/15) Sensorineural hearing loss, bilateral (Chronic 01/07/15) Dysphagia, unspecified (Chronic 06/22/16) Medical History? Abnormal CT of the head Acute bronchitis Acute respiratory distress Adenomatous polyp of colon Altered mental status Altered mental status Asthma exacerbation Atrial flutter Arias's esophagus Bipolar disorder Chronic low back pain Cognitive developmental delay Depression with anxiety Developmental delay, borderline Diabetes mellitus type 2, controlled Diastolic heart failure Dysuria GERD (gastroesophageal reflux disease) Hearing loss Hyperlipidemia Hypertension Hypothyroidism Hypoxemia Hypoxia Influenza A Nausea and vomiting Neurogenic bladder Obesity Obstructive sleep apnea C-PAP removed due to noncomplianceOsteoarthritis Palliative care encounter Pneumonia Respiratory failure, unspecified with hypoxia Schizophrenia 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) Surgical History? H/O tubal ligation History of cataract surgery History of hernia repair History of hysterectomy with bilateral oophorectomy S/P cholecystectomy Social History/Home Situation:?Unable to obtain history from patient. The following is from her previous hospitalization 11/03/22: Philomena lived with her sister Chantal who provides assistance. There is a ramp to enter her sister's house.? Modified independent indoor using FWW. ? Equipment Owned/DME:Hospital bed, 4WW, CPAP machine Subjective: unable Objective: ROM: Right Upper Extremity: ? Shoulder Flexion WFL. Shoulder abduction WFL. Elbow flexion WFL. Wrist flexion WFL. Functional opening and closing of hand WFL. Left Upper Extremity:? Declines AROM left shoulder. Passive motion allows flexion to 120*, limited by pain. ER to 30* limited by pain. IR to abdomen. Right Lower Extremity: Hip flexion lacks about 50% of available range of motion. Hip abduction lacks about 50% of available range of motion. Knee flexion WFL. Ankle dorsiflexion WFL. Ankle plantarflexion WFL. Left Lower Extremity: Hip flexion lacks about 50% of available range of motion. Hip abduction lacks about 50% of available range of motion. Knee flexion WFL. Ankle dorsiflexion WFL. Ankle plantarflexion WFL. Strength: Right Upper Extremity: Shoulder flexors 4/5. Shoulder abductors 3/5. Elbow flexors 4/5. Elbow extensors 4/5. Computer Systems Technology Instructor strong. Left Upper Extremity: unable to assess due to declining AROM due to pain Right Lower Extremity: Hip flexors 3-/5. Hip abductors 3-/5. Knee flexors 3-5. Knee extensors 3-/5. Ankle dorsiflexors 3/5. Ankle plantarflexors 3/5. Left Lower Extremity: Hip flexors 3-/5. Hip abductors 3-/5. Knee flexors 3-5. Knee extensors 3-/5. Ankle dorsiflexors 3/5. Ankle plantarflexors ? 3/5. BED MOBILITY/TRANSFERS?Rolling L/R: supervision ?Supine-sit: supervision?Sit-supine: contact guard assist ?Sit-stand: stand by assist?with FWW ?Stand-sit: stand by assist?with FWW ?Bed-Chair: stand by assist?with FWW ?Chair-bed: stand by assist?with FWW ? GAIT? Assistive Device: FWW? Weight bearing: FWB Assist: CGA ? Distance:? up to 20' ? Deviation: Chronic movement dykinesia limiting safety of gait.? Step height and? length asymmetric Balance: Static Sitting: good Dynamic Sitting: fair Static Standing: fair Dynamic Standing: fair ASSESSMENT: Patient presents with clinical signs and symptoms consistent with current/admitting diagnoses that resulted to mobility limitations, gait instability, generalized weakness, and lack of motor control. She demonstrated improvement in mobility, although remains unable to independently transfer or ambulate. She is not safe to return to community due to mobility deficits. Requires continued rehabilitation in SNF setting. Goals: Goals X1 week 1. Supine-Sit independent (NOT MET) 2. Sit-Supine independent(NOT MET) 3. Sit-Stand independent with FWW(NOT MET) 4. Stand-Sit independent with FWW(NOT MET) 5. Bed-Chair independent with FWW(NOT MET) 6. Chair-Bed independent with FWW(NOT MET) 7.?Supervision with gait on level surface with use of FWW for at least 300 feet without report of pain nor dyspnea(NOT MET) Plan of Care/Treatment Plan: D/C from PT in acute care setting. DISCHARGE RECOMMENDATIONS: SNF for continued progress toward goals. TREATMENT CODE/TIME: none Aby Vela, PT, DPT [facility]
== END 2022-11-18 13:17 | disposition skilled nursing facility (03) | DRG 641 ==
PROVIDERS: Nurse Practitioner Family; Admitting Provider Family Medicine; PCP Family Medicine; Visit Provider Family Medicine
DX: R62.7 Adult failure to thrive (principal); I48.92 Unspecified atrial flutter; R53.1 Weakness; I27.20 Pulmonary hypertension, unspecified; J45.909 Unspecified asthma, uncomplicated; E11.65 Type 2 diabetes mellitus with hyperglycemia; F20.9 Schizophrenia, unspecified; E87.6 Hypokalemia; R29.6 Repeated falls; K44.9 Diaphragmatic hernia without obstruction or gangrene; R13.10 Dysphagia, unspecified; Z79.4 Long term (current) use of insulin; G24.01 Drug induced subacute dyskinesia; H90.3 Sensorineural hearing loss, bilateral; M81.0 Age-related osteoporosis without current pathological fracture; N39.41 Urge incontinence; K21.9 Gastro-esophageal reflux disease without esophagitis; F41.9 Anxiety disorder, unspecified; I10 Essential (primary) hypertension; E03.9 Hypothyroidism, unspecified; E78.5 Hyperlipidemia, unspecified; G47.33 Obstructive sleep apnea (adult) (pediatric); R47.9 Unspecified speech disturbances; E66.9 Obesity, unspecified; Z68.28 Body mass index [BMI] 28.0-28.9, adult; Z93.1 Gastrostomy status; Z66 Do not resuscitate; W19.XXXA Unspecified fall, initial encounter; R07.81 Pleurodynia; S22.070D Wedge compression fracture of T9-T10 vertebra, subsequent encounter for fracture with routine healing; S22.080D Wedge compression fracture of T11-T12 vertebra, subsequent encounter for fracture with routine healing
CPT/HCPCS: 36415; 80048; 84145; 94640; 97110; 97162; 97530; 99305; 99316; 83735; 85025; 86140; 94664; 94760; 99308

== ENCOUNTER 2023-01-28 06:02 | Emergency (ER) | payer OTHER, MEDICAID, SELFPAY ==
[2023-01-28] VITALS (23 sets, daily range): BP systolic 102–135; BP diastolic 53–107; PULSE 62–97; RESP 2–31; TEMP 36.6; O2SAT 92–100
--- NOTE | 2023-01-28 05:15 | DI.RAD_ITS ---
Exam(s) XR PORTABLE CHEST AP EXAM: XR PORTABLE CHEST AP CLINICAL HISTORY: hypoxic, crackles LLL TECHNIQUE: 2D digital imaging was performed. COMPARISON: CR XR CHEST 1V IN DI DEPT from 11/02/2022 CR XR CHEST 2V PA LATERAL from 11/12/[address] CHEST WO from 11/12/2022 FINDINGS: Exam limited by poor pulmonary inflation. Leads overlie the chest. LUNGS: Chronic interstitial changes. Increased densities are noted at the left lung base which are s uspicious for superimposed infiltrate. Pulmonary edema also possibility. No pleural abnormality see n. HEART: Normal size. AORTA: Normal diameter. BONES: Old bilateral rib fractures. Soft tissues: Unremarkable. IMPRESSION: Chronic interstitial changes with superimposed left lower lobe infiltrate. DATA REPOSITORY: RADIATION DOSE DELIVERED:
--- NOTE | 2023-01-28 05:15 | RT.EKG_ITS ---
APPROVED REPORT Exam: Resting ECG Reason for Exam: SOB Patient Location: E HR:64 bpm ECG Measurements Heart Rate 64 AXIS MD 214 P 0 QRSd 113 QRS -14 QT 430 T 20 QTc 444 Conclusion Sinus rhythm...normal P axis, V-rate 60- 99 Borderline prolonged MD interval...MD >212, V-rate 50- 90 Probable left atrial enlargement...P >50mS, <-0.10mV V1 Left ventricular hypertrophy...multiple LVH criteria Inferior infarct, age indeterminate...Q>35mS, T neg, II III aVF Physician: no stemi
[2023-01-28 05:32] LABS: Abs Immature Grans 0.01 10^3/uL (0.0-0.06); Absolute Basophil Count 0.07 10^3/uL (0.0-0.2); Absolute Eosinophil Count 0.37 10^3/uL (0.0-0.7); Absolute Lymphocyte Count 4.15 10^3/uL (1.2-3.4); Absolute Monocyte Count 0.53 10^3/uL (0.1-0.8); Basophils % 0.9; Eosinophils % 4.9; HCT 42.1 % (36.0-46.0); HGB 14.3 g/dL (11.2-15.7); Immature Grans % 0.1; Lymphocytes % 55.1; MCH 31.3 pg (27.0-33.0); MCV 92 fL (80-95); MPV 10.1 fL (8.0-11.0); Platelet Count 235 10^3/uL (130-400); RBC 4.57 10^6/uL (3.93-5.22); RDW 11.9 % (11.7-14.6); RDW-SD 39.8 fL; WBC 7.53 10^3/uL (4.4-10.8)
[2023-01-28] MEDS: Albuterol/Ipratropium 3 ML UPD VIAL UPD (05:37)
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
[2023-01-28 05:53] LABS: INR 1.1 (0.9-1.1); Prothrombin Time 10.8 sec (9.1-11.1)
[2023-01-28 05:54] LABS: ALT 12 U/L (14-59); AST 14 U/L (15-37); Albumin 3.3 g/dL (3.4-5.0); Alkaline Phosphatase 120 U/L (46-116); Anion Gap 5.3 mmol/L (3-11); BUN 8 mg/dL (7-18); Bilirubin, Total 0.4 mg/dL (0.2-1.0); CO2 30.7 mmol/L (21.0-32.0); CREATININE 0.8 mg/dL (0.55-1.02); Calcium 9.5 mg/dL (8.5-10.1); Chloride 105 mmol/L (98-107); Estimated GFR 76.79 (mL/min/1.73m2); Glucose 127 mg/dL (74-106); NT-proBNP 194 pg/mL (<300); Potassium 4.1 mmol/L (3.5-5.1); Sodium 141 mmol/L (136-145); Total Protein 7.5 g/dL (6.4-8.2); Troponin I < 50 ng/L (<or=60)
[2023-01-28 06:08] LABS: COVID-19 PCR Negative (Negative); Influenza A PCR Negative (Negative); Influenza B PCR Negative (Negative); RSV PCR Negative (Negative); Source Nasopharynx
--- NOTE | 2023-01-28 07:07 | DI.VRAD_ITS ---
PROCEDURE INFORMATION: Exam: XR Chest Exam date and time: 01/28/2023 5:57 AM Age: 77 years old Clinical indication: Other: Hypoxic, crackles lll TECHNIQUE: Imaging protocol: Radiologic exam of the chest. Views: 1 view. COMPARISON: CT CHEST WO 11/12/2022 8:03 PM FINDINGS: Lungs: Mild prominence of the pulmonary interstitium. Subtle infiltrate left lower lobe Pleural spaces: No pleural effusion Heart/Mediastinum: Unremarkable. No cardiomegaly. Bones/joints: Unremarkable. IMPRESSION: Mild prominence of the pulmonary interstitium. Subtle infiltrate left lower lobe. Dictated and Authenticated by: Pretty Roldan MD. Ordering:YU Small MD
[2023-01-28] MEDS: levoFLOXacin 750 MG/150 ML BAG 100 MG IVPB (07:24)
--- NOTE | 2023-01-28 08:30 | RT.EKG_ITS ---
APPROVED REPORT Exam: Resting ECG Reason for Exam: chest pain Patient Location: E HR:69 bpm ECG Measurements Heart Rate 69 AXIS OR 163 P 0 QRSd 98 QRS -11 QT 420 T -10 QTc 452 Conclusion Sinus rhythm...normal P axis, V-rate 60- 99 Inferior infarct, old...Q >35mS, II III aVF sinus rhythm, left axis, normal intervals, non ischemic
== END 2023-01-28 09:26 | disposition home or self-care (01) ==
PROVIDERS: Emergency Provider Student in an Organized Health Care Education/Training Program; PCP Family Medicine
DX: R06.02 Shortness of breath (principal); J18.9 Pneumonia, unspecified organism; J45.909 Unspecified asthma, uncomplicated; I11.0 Hypertensive heart disease with heart failure; I50.32 Chronic diastolic (congestive) heart failure; E11.9 Type 2 diabetes mellitus without complications; E03.9 Hypothyroidism, unspecified; Z79.82 Long term (current) use of aspirin; Z79.4 Long term (current) use of insulin; Z20.822 Contact with and (suspected) exposure to COVID-19
CPT/HCPCS: 36415; 80053; 87637; 93005; 94640; 96365; 99284; 71045; 83880; 84484; 85025; 85610; 85730; 93010; J1956; J7620

== ENCOUNTER 2023-01-31 16:32 | Emergency (ER) | payer OTHER, MEDICAID, SELFPAY ==
--- NOTE | 2023-01-31 16:30 | DI.CT_ITS ---
Exam(s) CT ABDOMEN PELVIS W EXAM: CT ABDOMEN PELVIS W CLINICAL HISTORY: abdominal pain. TECHNIQUE: Imaging Protocol: Axial computed tomography images with coronal and sagittal reformatted images were created and reviewed CONTRAST MATERIAL: Intravenous: Omnipaque 350 Contrast volume:100 ml Oral: yes / no COMPARISON: CT CT CHEST/ABD/PEL W from 09/11/2022 CR,XR XR PORTABLE CHEST AP from 01/28/2023 FINDINGS: ABDOMEN and PELVIS: Exam limited by motion. Lung Bases respiratory motion. Lungs not well evaluated. Fibrotic changes. The heart is enlarged. Liver: Normal density. No measurable mass. Gallbladder and biliary tract: Status post cholecystectomy. No radiodense calculus or dilation. Pancreas: Normal density. No abnormal calcifications or inflammatory process. No evidence of mass. Spleen: Normal. Kidneys: Normal size, contour and axis. No radiodense stones. No obstructive uropathy. No suspicious masses seen. Adrenal glands: No masses seen. Vasculature: Abdominal aorta non-dilated. Soft tissues: Unremarkable. Bladder: No gross wall thickening. No calculi.No focal mass. Bowel: No obstruction. Fluid seen in right side of colon. No wall thickening. No bowel wall thickenin g. Appendix normal. Peritoneal cavity: No ascites. No focal collection or mesenteric inflammatory response. Bones: Multi compression fractures again noted. The there is now mild compression of the superior end plate of L1, new since prior. Old sternal fracture. Reproductive organs: Within normal limits. Lymph nodes: Unremarkable. IMPRESSION:: Fluid in the right side of the colon without evidence of wall thickening. Evidence of b owel obstruction. Subacute compression fracture of the superior endplate of L1. RADIATION DOSE DELIVERED: Total DLP DATA REPOSITORY: All CT scans at this facility are submitted to the National Radiology Data Registry (NRDR) Dose Index Registry (DIR) with the [employer] (A[employer]). RADIATION OPTIMIZATION: All CT scans at this facility use at least one of these dose optimization te chniques: automated exposure control; mA and/or kV adjustment per patient size (includes targeted exa ms where dose is matched to clinical indication); or iterative reconstruction.
[2023-01-31 16:33] VITALS: BP 106/74; PULSE 88; RESP 18; TEMP 36.9; O2SAT 96
[2023-01-31 16:54] VITALS: BP 106/74; PULSE 88; RESP 18; TEMP 36.9; O2SAT 96
[2023-01-31 16:56] LABS: Abs Immature Grans 0.01 10^3/uL (0.0-0.06); Absolute Basophil Count 0.07 10^3/uL (0.0-0.2); Absolute Eosinophil Count 0.47 10^3/uL (0.0-0.7); Absolute Lymphocyte Count 4.21 10^3/uL (1.2-3.4); Absolute Monocyte Count 0.89 10^3/uL (0.1-0.8); Absolute Neutrophil Count 5.47 10^3/uL (1.2-6.7); Basophils % 0.6; Eosinophils % 4.2; HCT 41.4 % (36.0-46.0); HGB 14.3 g/dL (11.2-15.7); Immature Grans % 0.1; Lymphocytes % 37.9; MCH 31.7 pg (27.0-33.0); MCHC 34.5 % (32.0-36.0); MCV 92 fL (80-95); MPV 10.4 fL (8.0-11.0); Neutrophils % 49.2; Platelet Count 244 10^3/uL (130-400); RBC 4.51 10^6/uL (3.93-5.22); RDW 11.7 % (11.7-14.6); RDW-SD 39.6 fL; WBC 11.12 10^3/uL (4.4-10.8)
[2023-01-31 17:07] LABS: Magnesium 2.2 mg/dL (1.8-2.4)
[2023-01-31] MEDS: Droperidol 5 MG/2 ML VIAL 2.5 MG IM (17:08)
[2023-01-31] MEDS: Normal Saline 1,000 ML 1000 ML IV (17:08)
[2023-01-31] MEDS: Ondansetron 4 MG/2 ML VIAL IVP (17:08)
[2023-01-31 17:12] LABS: ALT 12 U/L (14-59); AST 16 U/L (15-37); Albumin 3.4 g/dL (3.4-5.0); Alkaline Phosphatase 114 U/L (46-116); Anion Gap 5.9 mmol/L (3-11); BUN 9 mg/dL (7-18); Bilirubin, Total 0.7 mg/dL (0.2-1.0); CO2 29.1 mmol/L (21.0-32.0); CREATININE 0.8 mg/dL (0.55-1.02); Calcium 9.6 mg/dL (8.5-10.1); Chloride 103 mmol/L (98-107); Estimated GFR 76.79 (mL/min/1.73m2); Glucose 87 mg/dL (74-106); Lipase 15 U/L (16-77); Potassium 3.5 mmol/L (3.5-5.1); Sodium 138 mmol/L (136-145); Total Protein 7.6 g/dL (6.4-8.2)
[2023-01-31 17:39] LABS: Lactate 0.7 mmol/L (0.6-1.4)
[2023-01-31] MEDS: Omnipaque 350 MG/ML 100 ML BTL IJ (17:47)
[2023-01-31] MEDS: Normal Saline - Diluent 50 ML VIAL IJ (17:48)
[2023-01-31 18:25] VITALS: PULSE 70; RESP 18; O2SAT 97
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
--- NOTE | 2023-01-31 18:37 | DI.VRAD_ITS ---
PROCEDURE INFORMATION: Exam: CT Abdomen And Pelvis With Contrast Exam date and time: 01/31/2023 17:43 Age: 77 years old Clinical indication: Abdominal pain; Other: Unspecified by provider TECHNIQUE: Imaging protocol: Computed tomography of the abdomen and pelvis with contrast. COMPARISON: CT CHEST/ABD/PEL W 09/11/2022 12:18 FINDINGS: Lungs: Favor subsegmental atelectasis and or scarring the lungs on but appears to be a partially expiratory study. Heart: Moderate cardiomegaly. Liver: No mass. Gallbladder and bile ducts: Cholecystectomy. Typical caliber of the CBD for a post cholecystectomy patient. Pancreas: No ductal dilation. No masses. Spleen: No splenomegaly or focal lesions. Adrenal glands: There may be a tiny right adrenal nodule which would be similar to prior. Normal left adrenal gland. Kidneys and ureters: No hydronephrosis. No renal masses. Stomach and bowel: Colonic diverticulosis without diverticulitis. No definite small bowel wall thickening or pathologic dilation. Scattered air-fluid levels in right and transverse colon without wall thickening. Appendix: No evidence of appendicitis. Intraperitoneal space: No free air. No significant fluid collection. Vasculature: No abdominal aortic aneurysm. Lymph nodes: No significantly enlarged lymph nodes. Urinary bladder: Unremarkable as visualized. Reproductive: Hysterectomy. Bones/joints: Multifocal nonacute thoracolumbar compression deformities are again seen, since prior loss of height at L3 through L5 has worsened slightly, loss of height L2-2 worsened moderately and L1 new since prior however with sclerosis suggesting this is probably subacute. Chronic rib deformities. No acute appearing fracture. Soft tissues: No suspicious lesions. Other findings: Motion artifact in the abdomen. IMPRESSION: 1. Colonic findings suggest a minor dysmotility without definite colitis. 2. Incidental findings as described. Dictated and Authenticated by: Dana Bowles MD. Ordering:[facility] Mary Beth Costa MD
[2023-01-31 19:47] VITALS: PULSE 88; RESP 14; TEMP 37.3; O2SAT 95
--- NOTE | 2023-02-01 11:54 | NUR.NOTE ---
Accessed chart to determine orders for EKG and to determine whether or not one needs to be cancelled. Nursing Note:
== END 2023-01-31 20:19 | disposition skilled nursing facility (03) ==
PROVIDERS: Emergency Provider Emergency Medicine; PCP Family Medicine
DX: R10.32 Left lower quadrant pain (principal); K59.00 Constipation, unspecified; I11.0 Hypertensive heart disease with heart failure; I50.32 Chronic diastolic (congestive) heart failure; J45.909 Unspecified asthma, uncomplicated; E78.5 Hyperlipidemia, unspecified; Z79.4 Long term (current) use of insulin
CPT/HCPCS: 36415; 80053; 83690; 96361; 96372; 96374; 99285; 74177; 83605; 83735; 85025; 99284; J1790; J2405; J3490

== ENCOUNTER 2023-02-11 11:42 | Outpatient (REF) | payer OTHER, MEDICAID, SELFPAY ==
[2023-02-11 13:32] LABS: Abs Immature Grans 0.01 10^3/uL (0.0-0.06); Absolute Basophil Count 0.06 10^3/uL (0.0-0.2); Absolute Eosinophil Count 0.37 10^3/uL (0.0-0.7); Absolute Lymphocyte Count 3.49 10^3/uL (1.2-3.4); Absolute Monocyte Count 0.55 10^3/uL (0.1-0.8); Absolute Neutrophil Count 2.91 10^3/uL (1.2-6.7); Basophils % 0.8; HCT 42.5 % (36.0-46.0); HGB 14.5 g/dL (11.2-15.7); Immature Grans % 0.1; Lymphocytes % 47.2; MCH 32.1 pg (27.0-33.0); MCHC 34.1 % (32.0-36.0); MCV 94 fL (80-95); MPV 11.4 fL (8.0-11.0); Monocytes % 7.4; Neutrophils % 39.5; Platelet Count 225 10^3/uL (130-400); RBC 4.52 10^6/uL (3.93-5.22); RDW 11.8 % (11.7-14.6); WBC 7.39 10^3/uL (4.4-10.8)
[2023-02-11 13:59] LABS: Anion Gap 7.4 mmol/L (3-11); BUN 8 mg/dL (7-18); CO2 28.6 mmol/L (21.0-32.0); CREATININE 0.7 mg/dL (0.55-1.02); Chloride 104 mmol/L (98-107); Estimated GFR 90.14 (mL/min/1.73m2); Glucose 102 mg/dL (74-106); Magnesium 1.9 mg/dL (1.8-2.4); Potassium 4.5 mmol/L (3.5-5.1); Sodium 140 mmol/L (136-145); TSH 0.73 uIU/mL (0.36-3.74)
== END 2023-02-11 11:43 | disposition home or self-care (01) ==
LOC: NCHCN 11:42
PROVIDERS: Nurse Practitioner Adult Health; PCP Family Medicine; Visit Provider Internal Medicine
DX: E11.65 Type 2 diabetes mellitus with hyperglycemia (principal); M62.81 Muscle weakness (generalized); I27.29 Other secondary pulmonary hypertension; E46 Unspecified protein-calorie malnutrition; J45.909 Unspecified asthma, uncomplicated
CPT/HCPCS: 80048; 83735; 84443; 85025

== ENCOUNTER 2023-02-12 07:49 | Emergency (ER) | payer OTHER, MEDICAID, SELFPAY ==
[2023-02-12] VITALS (30 sets, daily range): BP systolic 84–142; BP diastolic 40–107; PULSE 85–108; RESP 19–32; TEMP 36.5; O2SAT 96–97
--- NOTE | 2023-02-12 07:45 | RT.EKG_ITS ---
APPROVED REPORT Exam: Resting ECG Reason for Exam: Chest pain Patient Location: E HR:85 bpm ECG Measurements Heart Rate 85 AXIS UT 161 P 24 QRSd 98 QRS 9 QT 384 T -12 QTc 458 Conclusion Sinus rhythm normal axis normal intervals no acute ischemic change
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
--- NOTE | 2023-02-12 08:00 | DI.RAD_ITS ---
Exam(s) XR PORTABLE CHEST AP EXAM: XR PORTABLE CHEST AP CLINICAL HISTORY: chest pain TECHNIQUE: 2D digital imaging was performed of the chest. One image was obtained. An AP view was ob tained. COMPARISON: CR XR CHEST 1V IN DI DEPT from 11/02/2022 CR,XR XR PORTABLE CHEST AP from 01/28/2023 FINDINGS: There are low lung volumes which limits examination. MEDIASTINUM: Normal. HEART: Normal. PULMONARY VASCULATURE: There is again seen prominence of the perihilar interstitium. LUNGS: Stable increased lung markings in the left lung base. No new focal consolidating infiltrates are seen. PLEURAL SPACE: No pleural effusion or pneumothorax. BONE:Within normal limits for the patient's age. Old healed rib fractures. OTHER FINDINGS:Normal. IMPRESSION: Overall no significant change in appearance of the chest x-ray compared to the prior examination. DATA REPOSITORY: RADIATION DOSE DELIVERED:
[2023-02-12 08:11] LABS: Abs Immature Grans 0.01 10^3/uL (0.0-0.06); Absolute Basophil Count 0.05 10^3/uL (0.0-0.2); Absolute Eosinophil Count 0.34 10^3/uL (0.0-0.7); Absolute Lymphocyte Count 3.56 10^3/uL (1.2-3.4); Absolute Monocyte Count 0.55 10^3/uL (0.1-0.8); Absolute Neutrophil Count 2.64 10^3/uL (1.2-6.7); Basophils % 0.7; Eosinophils % 4.8; HCT 44.1 % (36.0-46.0); HGB 14.8 g/dL (11.2-15.7); Immature Grans % 0.1; Lymphocytes % 49.8; MCH 31.4 pg (27.0-33.0); MCHC 33.6 % (32.0-36.0); MCV 94 fL (80-95); MPV 10.1 fL (8.0-11.0); Monocytes % 7.7; Neutrophils % 36.9; Platelet Count 245 10^3/uL (130-400); RBC 4.71 10^6/uL (3.93-5.22); RDW 11.9 % (11.7-14.6); RDW-SD 41.1 fL; WBC 7.15 10^3/uL (4.4-10.8)
[2023-02-12] MEDS: nitroGLYcerin 0.4 MG TAB SL ×2 (08:14→08:19)
[2023-02-12 08:33] LABS: ALT 11 U/L (14-59); AST 13 U/L (15-37); Albumin 3.3 g/dL (3.4-5.0); Alkaline Phosphatase 120 U/L (46-116); Anion Gap 6.5 mmol/L (3-11); BUN 6 mg/dL (7-18); Bilirubin, Total 0.5 mg/dL (0.2-1.0); CO2 31.5 mmol/L (21.0-32.0); CREATININE 0.8 mg/dL (0.55-1.02); Calcium 9.3 mg/dL (8.5-10.1); Chloride 105 mmol/L (98-107); Estimated GFR 76.79 (mL/min/1.73m2); Glucose 86 mg/dL (74-106); NT-proBNP 108 pg/mL (<300); Potassium 4.1 mmol/L (3.5-5.1); Sodium 143 mmol/L (136-145); Total Protein 7.4 g/dL (6.4-8.2); Troponin I < 50 ng/L (<or=60)
[2023-02-12] MEDS: Acetaminophen 500 MG TAB 1000 MG PO (08:39)
--- NOTE | 2023-02-12 09:52 | NUR.NOTE ---
patient reports pain in her arm is improving and is now at 3. CLB
[2023-02-12 11:28] LABS: Troponin I < 50 ng/L (<or=60)
--- NOTE | 2023-02-12 11:55 | NUR.NOTE ---
Nursing Note:20g IV catheter removed from pts right AC. intact upon removal.
== END 2023-02-12 12:07 | disposition skilled nursing facility (03) ==
PROVIDERS: Emergency Provider Emergency Medicine; PCP Family Medicine
DX: R07.9 Chest pain, unspecified (principal); I11.0 Hypertensive heart disease with heart failure; I50.32 Chronic diastolic (congestive) heart failure; E11.9 Type 2 diabetes mellitus without complications; E78.5 Hyperlipidemia, unspecified; Z93.1 Gastrostomy status
CPT/HCPCS: 36415; 80053; 93005; 99283; 71045; 83880; 84484; 85025; 93010

== ENCOUNTER 2023-02-21 19:56 | Emergency (ER) | payer OTHER, MEDICAID, SELFPAY ==
[2023-02-21] VITALS (31 sets, daily range): BP systolic 115–177; BP diastolic 64–106; PULSE 66–158; RESP 18–41; TEMP 36.1–36.5; O2SAT 91–99
--- NOTE | 2023-02-21 19:45 | RT.EKG_ITS ---
APPROVED REPORT Exam: Resting ECG Reason for Exam: chestpain Patient Location: E HR:78 bpm ECG Measurements Heart Rate 78 AXIS DE 107 P 0 QRSd 93 QRS 67 QT 419 T 53 QTc 478 Conclusion Sinus rhythm...normal P axis, V-rate 60- 99 sinus rhythm, normal axis, normal intervals, non ischemic
[2023-02-21] MEDS: LORazepam 2 MG/ML VIAL 0.5 MG IVP (20:53)
[2023-02-21] MEDS: ACETAMINOPHEN 1,000 MG/100 ML BTL 400 MG IVPB (20:53)
[2023-02-21 21:01] LABS: Abs Immature Grans 0.02 10^3/uL (0.0-0.06); Absolute Basophil Count 0.06 10^3/uL (0.0-0.2); Absolute Eosinophil Count 0.71 10^3/uL (0.0-0.7); Absolute Lymphocyte Count 4.45 10^3/uL (1.2-3.4); Absolute Monocyte Count 0.69 10^3/uL (0.1-0.8); Absolute Neutrophil Count 4.68 10^3/uL (1.2-6.7); Basophils % 0.6; Eosinophils % 6.7; HCT 41.5 % (36.0-46.0); HGB 14.2 g/dL (11.2-15.7); Immature Grans % 0.2; Lymphocytes % 41.9; MCH 31.9 pg (27.0-33.0); MCHC 34.2 % (32.0-36.0); MCV 93 fL (80-95); MPV 11.6 fL (8.0-11.0); Monocytes % 6.5; Neutrophils % 44.1; Platelet Count 221 10^3/uL (130-400); RBC 4.45 10^6/uL (3.93-5.22); RDW 11.7 % (11.7-14.6); RDW-SD 40.3 fL; WBC 10.61 10^3/uL (4.4-10.8)
[2023-02-21 21:12] LABS: ALT 12 U/L (14-59); AST 17 U/L (15-37); Albumin 3.1 g/dL (3.4-5.0); Alkaline Phosphatase 120 U/L (46-116); Anion Gap 9.5 mmol/L (3-11); BUN 9 mg/dL (7-18); Bilirubin, Total 0.4 mg/dL (0.2-1.0); CO2 27.5 mmol/L (21.0-32.0); CREATININE 0.7 mg/dL (0.55-1.02); Calcium 8.8 mg/dL (8.5-10.1); Chloride 106 mmol/L (98-107); Estimated GFR 90.14 (mL/min/1.73m2); Glucose 127 mg/dL (74-106); Potassium 3.7 mmol/L (3.5-5.1); Sodium 143 mmol/L (136-145); Total Protein 6.6 g/dL (6.4-8.2); Troponin I < 50 ng/L (<or=60)
--- NOTE | 2023-02-21 21:29 | DI.RAD_ITS ---
Exam(s) XR SHOULDER LT COMPLETE 2+V EXAM: XR SHOULDER LT COMPLETE 2+V CLINICAL HISTORY: left shoulder pain. TECHNIQUE: 2D digital imaging was performed. Three views. COMPARISON: CR XR shoulder LT complete 2+V from 08/01/2018 FINDINGS: BONES: No acute fracture is present. Old left rib fractures. No bony destructive lesion is seen. JOINTS: No dislocation present. SOFT TISSUE: Coarse lung markings. IMPRESSION: No acute abnormality of the shoulder. DATA REPOSITORY: RADIATION DOSE DELIVERED:
--- NOTE | 2023-02-21 21:30 | DI.RAD_ITS ---
Exam(s) XR CHEST 2V PA LATERAL EXAM: XR CHEST 2V PA LATERAL CLINICAL HISTORY: chest pain TECHNIQUE: 2D digital imaging was performed. COMPARISON: CR XR PORTABLE CHEST AP from 02/12/2023 FINDINGS: Exam limited by poor pulmonary inflation and poor penetration. HEART: Normal size. Aorta: Not dilated. PULMONARY VASCULATURE: Normal. LUNGS: Underlying interstitial changes. Infiltrates and or pulmonary edema not excluded. PLEURAL SPACE: No pleural effusion or pneumothorax. BONE:Old rib fractures. Spine not well seen. Soft tissues: Unremarkable. IMPRESSION: Severely limited exam. Infiltrates and/or pulmonary edema not excluded DATA REPOSITORY: RADIATION DOSE DELIVERED:
[2023-02-21 21:41] LABS: TSH (W/Ref FT4) 0.76 uIU/mL (0.36-3.74)
--- NOTE | 2023-02-21 21:52 | DI.VRAD_ITS ---
PROCEDURE INFORMATION: Exam: XR Chest Exam date and time: 02/21/2023 9:15 PM Age: 77 years old Clinical indication: Other: Chest pain TECHNIQUE: Imaging protocol: Radiologic exam of the chest. Views: 2 views. COMPARISON: CR XR PORTABLE CHEST AP 02/12/2023 8:26 AM. Report not available. FINDINGS: Lungs: There are some coarse increased markings at both lung bases, left worse than right. The lungs are slightly hypoinflated. There is some mild airspace opacity at the right suprahilar level., fairly faint. Pleural spaces: Unremarkable. No pleural effusion. No pneumothorax. Heart/Mediastinum: There is no change in mild cardiomegaly. Vasculature: Mild aortic ectasia. Bones/joints: Unremarkable. IMPRESSION: Possible degree of bilateral consolidation versus pneumonitis or fibrosis. Follow-up recommended. Dictated and Authenticated by: Autumn Levin MD. Ordering:ENA Karimi MD
--- NOTE | 2023-02-21 21:53 | DI.VRAD_ITS ---
PROCEDURE INFORMATION: Exam: XR Left Shoulder Exam date and time: 02/21/2023 9:18 PM Age: 77 years old Clinical indication: Other: Left shoulder pain TECHNIQUE: Imaging protocol: Radiologic exam of the left shoulder. Views: 2 or more views. COMPARISON: CR XR shoulder LT complete 2+V 08/01/2018 3:40 PM FINDINGS: Bones/joints: Bone density appears slightly decreased. Bony alignment is anatomic. Old left rib fractures are again seen. Lungs: There are some coarse parenchymal changes at the left lung base. See separate chest report. Soft tissues: See Lungs finding. IMPRESSION: No acute abnormality seen to account for symptoms. Dictated and Authenticated by: Autumn Levin MD. Ordering:ENA Karimi MD
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
== END 2023-02-21 23:25 | disposition home or self-care (01) ==
PROVIDERS: Emergency Provider Physician Assistant; PCP Family Medicine
DX: M25.512 Pain in left shoulder (principal); I11.0 Hypertensive heart disease with heart failure; I50.32 Chronic diastolic (congestive) heart failure; E11.9 Type 2 diabetes mellitus without complications; Z79.82 Long term (current) use of aspirin; Z79.84 Long term (current) use of oral hypoglycemic drugs
CPT/HCPCS: 36415; 80053; 93005; 96374; 96375; 99283; 71046; 73030; 83735; 84443; 84484; 85025; 93010; J0131; J2060

== ENCOUNTER → 2023-03-03 10:44 | Outpatient (CLI) | payer OTHER, MEDICAID, SELFPAY ==
--- NOTE | 2023-03-03 11:45 | DI.RAD_ITS ---
Exam(s) XR CHEST 2V PA LATERAL EXAM: XR CHEST 2V PA LATERAL CLINICAL HISTORY: F/U PNEUMONIA. TECHNIQUE: 2D digital imaging was performed. COMPARISON: CR,XR XR CHEST 2V PA LATERAL from 02/21/2023 FINDINGS: 2 views: Heart size is upper normal. The mediastinum is not widened. Multiple right-sided healed rib fractures are again noted. Increased markings are noted throughout both lungs but without air bronchograms. There is some scarr ing vertical atelectasis in the medial right lung base. No obvious pleural effusions. No pneumothor ax. No acute fractures evident. Air subjacent to the right hemidiaphragm has more the appearance of bowel interposition than free int raperitoneal air. IMPRESSION: Chronic appearing increased lung findings bilaterally. No confluent infiltrates and no pleural effus ions. DATA REPOSITORY: RADIATION DOSE DELIVERED:
== END ==
PROVIDERS: PCP Family Medicine; Visit Provider Nurse Practitioner Adult Health
DX: R91.8 Other nonspecific abnormal finding of lung field (principal); J98.11 Atelectasis
CPT/HCPCS: 71046

== ENCOUNTER → 2023-03-10 00:48 | Outpatient (CLI) | payer OTHER, MEDICAID, SELFPAY ==
--- NOTE | 2023-03-10 | DI.US_ITS ---
Exam(s) US ABDOMEN LIMITED EXAM: US ABDOMEN LIMITED CLINICAL HISTORY: RUQ PAIN,? BILIARY PROBLEM,H/O FLUID ON PREV CT TECHNIQUE: Ultrasound abdomen performed using standard protocol. COMPARISON: CT CT CHEST PE ABD PELVIS W from 07/22/[address] THORACIC LUMBAR SPINE WO from 07/22/[address] CHEST/ABD/PEL W from 09/11/2022 FINDINGS: LIVER: Normal size. Normalechogenicity. No focal liver lesions are seen.. GALLBLADDER: Status post cholecystectomy. BILIARY SYSTEM: No intrahepatic or extrahepatic biliary ductal dilation. RIGHT KIDNEY: Normal size. No evidence of renal calculi. No evidence of hydronephrosis. No suspicious renal mass. No cyst identified. PANCREAS: Normal where visualized. ABDOMINAL AORTA AND IVC: Visualized portions normal caliber. ASCITES: None seen. IMPRESSION: Status post cholecystectomy. No evidence of biliary dilatation. DATA REPOSITORY:
== END ==
PROVIDERS: PCP Family Medicine; Visit Provider Family Medicine
DX: K91.5 Postcholecystectomy syndrome (principal); E11.65 Type 2 diabetes mellitus with hyperglycemia
CPT/HCPCS: 76705

== ENCOUNTER 2023-05-11 04:03 | Emergency (ER) | payer OTHER, MEDICAID, SELFPAY ==
--- NOTE | 2023-05-11 03:45 | RT.EKG_ITS ---
APPROVED REPORT Exam: Resting ECG Reason for Exam: chest pain Patient Location: E HR:71 bpm ECG Measurements Heart Rate 71 AXIS VT 178 P 41 QRSd 100 QRS -7 QT 443 T -18 QTc 482 Conclusion Age and gender not entered, assume 52 yo male for purpose of ECG interpretation Sinus rhythm...normal P axis, V-rate 60- 99 Aberrant conduction of SV complex(es)...aberrant shape, VT 80-220 Inferior infarct, age indeterminate...Q>35mS, T neg, II III aVF Physician: no stemi
[2023-05-11 03:59] VITALS: BP 140/110; PULSE 65; RESP 16; TEMP 36.3; O2SAT 96
--- NOTE | 2023-05-11 04:00 | DI.RAD_ITS ---
Exam(s) XR PORTABLE CHEST AP EXAM: XR PORTABLE CHEST AP CLINICAL HISTORY: sob, cough TECHNIQUE: 2D digital imaging was performed. COMPARISON: CR XR CHEST 2V PA LATERAL from 03/03/2023 FINDINGS: Exam limited by poor pulmonary inflation. LUNGS: Underlying fibrotic changes. No gross focal infiltrate. No gross evidence of pulmonary edema . No pleural abnormality seen. HEART: Normal size. AORTA: Normal diameter. BONES: Old rib fractures. Scoliosis and degenerative changes in the spine. Soft tissues: Unremarkable. IMPRESSION: Limited exam. No acute findings. DATA REPOSITORY: RADIATION DOSE DELIVERED:
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
[2023-05-11 04:19] LABS: Abs Immature Grans 0.01 10^3/uL (0.0-0.06); Absolute Basophil Count 0.06 10^3/uL (0.0-0.2); Absolute Eosinophil Count 0.55 10^3/uL (0.0-0.7); Absolute Lymphocyte Count 3.41 10^3/uL (1.2-3.4); Absolute Monocyte Count 0.54 10^3/uL (0.1-0.8); Absolute Neutrophil Count 2.76 10^3/uL (1.2-6.7); Basophils % 0.8; Eosinophils % 7.5; HCT 39.8 % (36.0-46.0); HGB 13.8 g/dL (11.2-15.7); Immature Grans % 0.1; Lymphocytes % 46.5; MCH 31.7 pg (27.0-33.0); MCHC 34.7 % (32.0-36.0); MCV 92 fL (80-95); MPV 10.6 fL (8.0-11.0); Monocytes % 7.4; Neutrophils % 37.7; Platelet Count 217 10^3/uL (130-400); RBC 4.35 10^6/uL (3.93-5.22); RDW 11.9 % (11.7-14.6); RDW-SD 40.5 fL; WBC 7.33 10^3/uL (4.4-10.8)
[2023-05-11 04:31] LABS: INR 1.1 (0.9-1.1); PTT Activated 26.6 sec (23.6-32.8); Prothrombin Time 11.2 sec (9.1-11.1)
[2023-05-11 04:36] LABS: ALT 10 U/L (14-59); AST 12 U/L (15-37); Albumin 3.4 g/dL (3.4-5.0); Alkaline Phosphatase 97 U/L (46-116); Anion Gap 9.7 mmol/L (3-11); BUN 11 mg/dL (7-18); Bilirubin, Total 0.5 mg/dL (0.2-1.0); CO2 28.3 mmol/L (21.0-32.0); CREATININE 0.8 mg/dL (0.55-1.02); Calcium 9.4 mg/dL (8.5-10.1); Chloride 106 mmol/L (98-107); Estimated GFR 76.79 (mL/min/1.73m2); Glucose 90 mg/dL (74-106); Magnesium 1.9 mg/dL (1.8-2.4); Potassium 3.6 mmol/L (3.5-5.1); Sodium 144 mmol/L (136-145); Total Protein 7.2 g/dL (6.4-8.2)
[2023-05-11 04:38] LABS: Troponin I < 50 ng/L (< or =60)
[2023-05-11 05:01] LABS: D-Dimer 441 ng/mlFEU (<500)
[2023-05-11 05:55] VITALS: BP 116/85; PULSE 77; RESP 16; O2SAT 96
[2023-05-11 06:54] LABS: Troponin I < 50 ng/L (< or =60)
--- NOTE | 2023-05-11 08:44 | DI.VRAD_ITS ---
PROCEDURE INFORMATION: Exam: XR Chest Exam date and time: 05/11/2023 4:21 AM Age: 77 years old Clinical indication: Cough TECHNIQUE: Imaging protocol: Radiologic exam of the chest. Views: 1 view. COMPARISON: CR XR CHEST 2V PA LATERAL 03/03/2023 11:36 AM FINDINGS: Lungs: Low lung volumes with vascular crowding. No mass or consolidation. Pleural spaces: Unremarkable. No pleural effusion. No pneumothorax. Heart/Mediastinum: Unremarkable. No cardiomegaly. Bones/joints: Unremarkable. IMPRESSION: Low lung volumes with vascular crowding. No mass or consolidation. Dictated and Authenticated by: Brenda Groves MD. Ordering:YU Small MD
== END 2023-05-11 07:48 | disposition skilled nursing facility (03) ==
PROVIDERS: Emergency Provider Student in an Organized Health Care Education/Training Program; PCP Family Medicine
DX: R07.9 Chest pain, unspecified (principal); I10 Essential (primary) hypertension; R05.1 Acute cough; R41.841 Cognitive communication deficit; Z86.59 Personal history of other mental and behavioral disorders; Z87.19 Personal history of other diseases of the digestive system; E11.9 Type 2 diabetes mellitus without complications
CPT/HCPCS: 80053; 93005; 99283; 71045; 83735; 84484; 85025; 85379; 85610; 85730; 93010

== ENCOUNTER 2023-05-17 16:19 | Outpatient (REF) | payer OTHER, MEDICAID, SELFPAY ==
[2023-05-17 16:04] LABS: HCT 39.8 % (36.0-46.0); MCH 32.6 pg (27.0-33.0); MCHC 35.2 % (32.0-36.0); MCV 93 fL (80-95); MPV 11.2 fL (8.0-11.0); Platelet Count 230 10^3/uL (130-400); RDW 11.9 % (11.7-14.6); RDW-SD 39.9 fL; WBC 7.11 10^3/uL (4.4-10.8)
[2023-05-17 16:37] LABS: Anion Gap 10.9 mmol/L (3-11); BUN 13 mg/dL (7-18); CO2 27.1 mmol/L (21.0-32.0); CREATININE 0.8 mg/dL (0.55-1.02); Chloride 104 mmol/L (98-107); Estimated GFR 76.79 (mL/min/1.73m2); Glucose 106 mg/dL (74-106); Potassium 4.1 mmol/L (3.5-5.1); Sodium 142 mmol/L (136-145)
[2023-05-17 16:55] LABS: Hemoglobin A1C 5.1 % (<5.7)
== END 2023-05-17 16:20 | disposition home or self-care (01) ==
LOC: LBN 16:19
PROVIDERS: PCP Family Medicine; Visit Provider Nurse Practitioner Adult Health
DX: E11.65 Type 2 diabetes mellitus with hyperglycemia (principal); E46 Unspecified protein-calorie malnutrition; I27.29 Other secondary pulmonary hypertension
CPT/HCPCS: 80048; 85027; 83036; 83735; 84443

== ENCOUNTER 2023-07-09 14:33 | Outpatient (REF) | payer OTHER, MEDICAID, SELFPAY ==
[2023-07-09 14:03] LABS: TSH 0.72 uIU/Ml (0.36-3.74)
== END 2023-07-09 14:34 | disposition home or self-care (01) ==
LOC: LBN 14:33
PROVIDERS: PCP Family Medicine; Visit Provider Family Medicine
DX: E07.9 Disorder of thyroid, unspecified (principal)
CPT/HCPCS: 84443

== ENCOUNTER 2023-07-13 18:38 | Outpatient (REF) | payer OTHER, MEDICAID, SELFPAY ==
[2023-07-13 19:34] LABS: TSH 0.47 uIU/Ml (0.36-3.74)
== END 2023-07-13 18:39 | disposition home or self-care (01) ==
LOC: LBN 18:38
PROVIDERS: PCP Family Medicine; Visit Provider Family Medicine
DX: E03.9 Hypothyroidism, unspecified (principal)
CPT/HCPCS: 84443

== ENCOUNTER 2023-10-26 22:02 | Outpatient (REF) | payer OTHER, MEDICAID, SELFPAY ==
[2023-10-26 17:02] LABS: HCT 39.9 % (36.0-46.0); HGB 13.2 g/dL (11.2-15.7); MCH 32.8 pg (27.0-33.0); MCHC 33.1 % (32.0-36.0); MCV 99 fL (80-95); MPV 11.4 fL (8.0-11.0); Platelet Count 198 10^3/uL (130-400); RBC 4.03 10^6/uL (3.93-5.22); RDW 11.8 % (11.7-14.6); RDW-SD 43.1 fL; WBC 6.67 10^3/uL (4.4-10.8)
== END 2023-10-26 22:03 | disposition home or self-care (01) ==
LOC: LBN 22:02
PROVIDERS: PCP Family Medicine; Visit Provider Family Medicine
DX: E11.9 Type 2 diabetes mellitus without complications (principal); E03.9 Hypothyroidism, unspecified; R68.89 Other general symptoms and signs
CPT/HCPCS: 85027

== ENCOUNTER 2023-10-29 19:53 | Outpatient (REF) | payer OTHER, MEDICAID, SELFPAY ==
[2023-10-29 16:11] LABS: Abs Immature Grans 0.01 10^3/uL (0.0-0.06); Absolute Basophil Count 0.04 10^3/uL (0.0-0.2); Absolute Eosinophil Count 0.34 10^3/uL (0.0-0.7); Absolute Lymphocyte Count 3.68 10^3/uL (1.2-3.4); Absolute Monocyte Count 0.59 10^3/uL (0.1-0.8); Absolute Neutrophil Count 2.56 10^3/uL (1.2-6.7); Basophils % 0.6 %; Eosinophils % 4.7 %; HCT 39.1 % (36.0-46.0); HGB 13.4 g/dL (11.2-15.7); Immature Grans % 0.1 %; MCH 32.8 pg (27.0-33.0); MCHC 34.3 % (32.0-36.0); MCV 96 fL (80-95); MPV 11.2 fL (8.0-11.0); Monocytes % 8.2 %; Neutrophils % 35.4 %; Platelet Count 202 10^3/uL (130-400); RBC 4.08 10^6/uL (3.93-5.22); RDW 11.7 % (11.7-14.6); RDW-SD 40.9 fL; WBC 7.22 10^3/uL (4.4-10.8)
== END 2023-10-29 19:54 | disposition home or self-care (01) ==
LOC: LBN 19:53
PROVIDERS: Visit Provider Family Medicine
DX: R68.89 Other general symptoms and signs (principal)
CPT/HCPCS: 85025

== ENCOUNTER 2023-11-16 18:32 | Outpatient (REF) | payer OTHER, MEDICAID, SELFPAY ==
[2023-11-16 16:36] LABS: Anion Gap 8.1 mmol/L (3-11); BUN 10 mg/dL (7-18); CO2 27.9 mmol/L (21.0-32.0); CREATININE 0.7 mg/dL (0.55-1.02); Chloride 107 mmol/L (98-107); Estimated GFR 89.58 (mL/min/1.73m2); Glucose 140 mg/dL (74-106); Potassium 4.3 mmol/L (3.5-5.1); Sodium 143 mmol/L (136-145); TSH (W/Ref FT4) 1.22 uIU/mL (0.36-3.74)
[2023-11-16 16:56] LABS: Hemoglobin A1C 4.9 % (<5.7)
== END 2023-11-16 18:33 | disposition home or self-care (01) ==
LOC: LBN 18:32
PROVIDERS: PCP Family Medicine; Visit Provider Family Medicine
DX: R68.89 Other general symptoms and signs (principal)
CPT/HCPCS: 80048; 83036; 84443

== ENCOUNTER 2023-12-06 19:46 | Outpatient (REF) | payer OTHER, MEDICAID, SELFPAY ==
[2023-12-06 15:36] LABS: Anion Gap 8.2 mmol/L (3-11); BUN 11 mg/dL (7-18); CO2 26.8 mmol/L (21.0-32.0); CREATININE 0.8 mg/dL (0.55-1.02); Calcium 8.4 mg/dL (8.5-10.1); Calculated LDL 31 mg/dL (<100); Chloride 105 mmol/L (98-107); Cholesterol 115 mg/dL (<200); Estimated GFR 76.31 (mL/min/1.73m2); Glucose 178 mg/dL (74-106); HDL Cholesterol 43 mg/dL (40-60); Potassium 4.5 mmol/L (3.5-5.1); Sodium 140 mmol/L (136-145); Triglyceride 206 mg/dL (<150)
[2023-12-06 16:15] LABS: Hemoglobin A1C 5.4 % (<5.7)
== END 2023-12-06 19:47 | disposition home or self-care (01) ==
LOC: LBN 19:46
PROVIDERS: PCP Family Medicine; Visit Provider Family Medicine
DX: E11.65 Type 2 diabetes mellitus with hyperglycemia (principal)
CPT/HCPCS: 80048; 80061; 83036

== ENCOUNTER 2023-12-28 01:38 | Outpatient (CLI) | payer OTHER, MEDICAID, SELFPAY ==
--- NOTE | 2023-12-28 08:23 | DI.RAD_ITS ---
Exam(s) XR RIBS ONLY LT EXAM: XR RIBS ONLY LT CLINICAL HISTORY: INCREASED INTERCOSTAL PAIN,R07.82 TECHNIQUE: 2D digital imaging was performed. Two images are obtained. COMPARISON: CR XR CHEST 2V PA LATERAL from 03/03/2023 CR,XR XR PORTABLE CHEST AP from 05/11/2023 FINDINGS: A marker was placed on the area of interest which was not included on the images. The area of concer n lies inferior to the images obtained. LUNGS: Chronic interstitial changes are seen in the left lung base. PLEURAL SPACE: No pleural effusion or pneumothorax. BONE:There are old healed left rib fractures. No acute displaced rib fracture is seen on the left. OTHER FINDINGS:Normal. IMPRESSION: 1. Old healed left rib fractures. 2. No acute displaced left rib fracture. 3. By the patient's report, the area of concern was marked with a BB. The area of concern lies infer ior to the images obtained. Follow-up as clinically appropriate. DATA REPOSITORY: RADIATION DOSE DELIVERED:
== END 2023-12-28 01:58 ==
PROVIDERS: PCP Family Medicine; Visit Provider Nurse Practitioner Adult Health
DX: R07.82 Intercostal pain (principal)
CPT/HCPCS: 71100

== ENCOUNTER 2024-02-28 18:25 | Outpatient (REF) | payer MEDICARE, MEDICAID, SELFPAY ==
[2024-02-28 17:37] LABS: Absolute Basophil Count 0.04 10^3/uL (0.0-0.2); Absolute Eosinophil Count 0.34 10^3/uL (0.0-0.7); Absolute Lymphocyte Count 3.71 10^3/uL (1.2-3.4); Absolute Monocyte Count 0.72 10^3/uL (0.1-0.8); Absolute Neutrophil Count 2.68 10^3/uL (1.2-6.7); Basophils % 0.5 %; Eosinophils % 4.5 %; HCT 43.2 % (36.0-46.0); HGB 14.6 g/dL (11.2-15.7); Lymphocytes % 49.5 %; MCH 32.2 pg (27.0-33.0); MCHC 33.8 % (32.0-36.0); MCV 95 fL (80-95); MPV 10.9 fL (8.0-11.0); Monocytes % 9.6 %; Neutrophils % 35.9 %; Platelet Count 210 10^3/uL (130-400); RBC 4.53 10^6/uL (3.93-5.22); RDW 11.5 % (11.7-14.6); RDW-SD 39.9 fL; WBC 7.49 10^3/uL (4.4-10.8)
[2024-02-28 17:44] LABS: Anion Gap 6.3 mmol/L (3-11); BUN 15 mg/dL (7-18); CO2 29.7 mmol/L (21.0-32.0); CREATININE 0.8 mg/dL (0.55-1.02); Calcium 8.9 mg/dL (8.5-10.1); Chloride 107 mmol/L (98-107); Estimated GFR 76.31 (mL/min/1.73m2); Glucose 140 mg/dL (74-106); Potassium 4.6 mmol/L (3.5-5.1); Sodium 143 mmol/L (136-145)
== END 2024-02-28 18:26 | disposition home or self-care (01) ==
LOC: LBN 18:25
PROVIDERS: PCP Family Medicine; Visit Provider Family Medicine
DX: E11.65 Type 2 diabetes mellitus with hyperglycemia (principal)
CPT/HCPCS: 80048; 83036; 85025

== ENCOUNTER 2024-04-07 04:16 | Emergency (ER) | payer MEDICARE, MEDICAID, SELFPAY ==
[2024-04-07] VITALS (55 sets, daily range): BP systolic 111–147; BP diastolic 55–93; PULSE 59–69; RESP 12–28; TEMP 36.8; O2SAT 92–97
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
[2024-04-07] MEDS: Albuterol HFA 8 GM 60 PUFF INH IH (04:52)
[2024-04-07] MEDS: Inhaler, Assist Device 1 EACH MC (04:53)
== END 2024-04-07 05:47 | disposition skilled nursing facility (03) ==
PROVIDERS: Emergency Provider Student in an Organized Health Care Education/Training Program; PCP Family Medicine
DX: R05.9 Cough, unspecified (principal); R06.02 Shortness of breath; J45.909 Unspecified asthma, uncomplicated; E11.69 Type 2 diabetes mellitus with other specified complication; I10 Essential (primary) hypertension
CPT/HCPCS: 99283

== ENCOUNTER 2024-06-29 13:55 | Outpatient (REF) | payer MEDICARE, MEDICAID, SELFPAY ==
[2024-06-29 15:26] LABS: Hemoglobin A1C 6.5 % (<5.7)
== END 2024-06-29 13:56 | disposition home or self-care (01) ==
LOC: LBN 13:55
PROVIDERS: PCP Family Medicine; Visit Provider Nurse Practitioner Gerontology
DX: E11.65 Type 2 diabetes mellitus with hyperglycemia (principal)
CPT/HCPCS: 83036

== ENCOUNTER 2024-07-18 00:19 | Outpatient (CLI) | payer MEDICARE, MEDICAID, SELFPAY ==
--- NOTE | 2024-07-18 | DI.RAD_ITS ---
Exam(s) XR KNEE RT 3V AP,LAT,PAULETTE EXAM: XR KNEE RT 3V AP,LAT,PAULETTE CLINICAL HISTORY: RT KNEE PAIN, S/P FALL. TECHNIQUE: 2D digital imaging was performed. Three views. COMPARISON: CR RIGHT KNEE 3 VIEWS from 04/08/2009 FINDINGS: BONES: No acute fracture is present. No bony destructive lesion is seen. The bones appear osteopeni c. JOINTS: The joint spaces are maintained. The knee is normally aligned. A joint effusion is seen. SOFT TISSUE: Normal. IMPRESSION: No visible fracture. There is a joint effusion. Occult fracture of should be considered. Follow-up recommended. DATA REPOSITORY: RADIATION DOSE DELIVERED:
== END 2024-07-18 00:39 ==
PROVIDERS: PCP Family Medicine; Visit Provider Nurse Practitioner Family
DX: M25.561 Pain in right knee (principal)
CPT/HCPCS: 73562

== ENCOUNTER 2024-08-04 20:19 | Outpatient (REF) | payer MEDICARE, MEDICAID, SELFPAY ==
[2024-08-04 15:55] LABS: Hemoglobin A1C 6.6 % (<5.7)
== END 2024-08-04 20:20 | disposition home or self-care (01) ==
LOC: LBN 20:19
PROVIDERS: PCP Family Medicine; Visit Provider Family Medicine Geriatric Medicine
DX: E11.65 Type 2 diabetes mellitus with hyperglycemia (principal); E03.9 Hypothyroidism, unspecified
CPT/HCPCS: 83036

== ENCOUNTER 2024-09-01 15:04 | Outpatient (REF) | payer MEDICARE, MEDICAID, SELFPAY ==
[2024-09-01 13:50] LABS: Abs Immature Grans 0.01 10^3/uL (0.0-0.06); Absolute Basophil Count 0.05 10^3/uL (0.0-0.2); Absolute Eosinophil Count 0.23 10^3/uL (0.0-0.7); Absolute Lymphocyte Count 2.37 10^3/uL (1.2-3.4); Absolute Monocyte Count 0.47 10^3/uL (0.1-0.8); Absolute Neutrophil Count 2.94 10^3/uL (1.2-6.7); Basophils % 0.8 %; Eosinophils % 3.8 %; HCT 41.2 % (36.0-46.0); HGB 13.7 g/dL (11.2-15.7); Immature Grans % 0.2 %; MCH 32.3 pg (27.0-33.0); MCHC 33.3 % (32.0-36.0); MCV 97 fL (80-95); MPV 11.4 fL (8.0-11.0); Monocytes % 7.7 %; Neutrophils % 48.5 %; Platelet Count 189 10^3/uL (130-400); RBC 4.24 10^6/uL (3.93-5.22); RDW 11.9 % (11.7-14.6); RDW-SD 42.5 fL; WBC 6.07 10^3/uL (4.4-10.8)
[2024-09-01 14:11] LABS: ALT 19 U/L (14-59); AST 10 U/L (15-37); Albumin 3.1 g/dL (3.4-5.0); Alkaline Phosphatase 137 U/L (46-116); Anion Gap 7.6 mmol/L (3-11); BUN 10 mg/dL (7-18); Bilirubin, Total 0.4 mg/dL (0.2-1.0); CO2 28.4 mmol/L (21.0-32.0); CREATININE 0.9 mg/dL (0.55-1.02); Calcium 8.6 mg/dL (8.5-10.1); Calculated LDL 66 mg/dL (<100); Chloride 104 mmol/L (98-107); Cholesterol 142 mg/dL (<200); Estimated GFR 66.26 (mL/min/1.73m2); Glucose 249 mg/dL (74-106); HDL Cholesterol 39 mg/dL (>or=50); Potassium 4.1 mmol/L (3.5-5.1); Sodium 140 mmol/L (136-145); Total Protein 6.6 g/dL (6.4-8.2); Triglyceride 187 mg/dL (<150)
[2024-09-01 17:52] LABS: Hemoglobin A1C 6.7 % (<5.7)
== END 2024-09-01 15:05 | disposition home or self-care (01) ==
LOC: LBN 15:04
PROVIDERS: PCP Family Medicine; Visit Provider Family Medicine
DX: E78.5 Hyperlipidemia, unspecified (principal); E11.65 Type 2 diabetes mellitus with hyperglycemia
CPT/HCPCS: 80053; 80061; 83036; 85025

== ENCOUNTER 2024-09-21 05:57 | Outpatient (CLI) | payer MEDICARE, MEDICAID, SELFPAY ==
[2024-09-21 16:56] LABS: Glucose Negative (Negative)
[2024-09-21 16:57] LABS: RBC 0-2 HPF (0-2)
== END 2024-09-21 05:58 | disposition home or self-care (01) ==
LOC: LBN 05:58
PROVIDERS: PCP Family Medicine; Visit Provider Family Medicine
DX: N39.41 Urge incontinence (principal)
CPT/HCPCS: 81003; 81015; 87086

== ENCOUNTER 2024-10-03 18:23 | Outpatient (REF) | payer MEDICARE, MEDICAID, SELFPAY ==
[2024-10-03 15:48] LABS: Abs Immature Grans 0.01 10^3/uL (0.0-0.06); HCT 41.6 % (36.0-46.0); HGB 13.7 g/dL (11.2-15.7); Immature Grans % 0.1 %; MCH 31.6 pg (27.0-33.0); MCHC 32.9 % (32.0-36.0); MCV 96 fL (80-95); MPV 11.1 fL (8.0-11.0); Platelet Count 222 10^3/uL (130-400); RBC 4.33 10^6/uL (3.93-5.22); RDW 11.8 % (11.7-14.6); RDW-SD 41.2 fL; WBC 6.75 10^3/uL (4.4-10.8)
[2024-10-03 16:08] LABS: ALT 21 U/L (14-59); AST 17 U/L (15-37); Albumin 3.4 g/dL (3.4-5.0); Alkaline Phosphatase 124 U/L (46-116); Anion Gap 6.2 mmol/L (3-11); BUN 15 mg/dL (7-18); Bilirubin, Total 0.4 mg/dL (0.2-1.0); CO2 29.8 mmol/L (21.0-32.0); Calcium 8.7 mg/dL (8.5-10.1); Chloride 102 mmol/L (98-107); Estimated GFR 65.84 (mL/min/1.73m2); Glucose 163 mg/dL (74-106); NT-proBNP 140 pg/mL (<300); Potassium 4.7 mmol/L (3.5-5.1); Sodium 138 mmol/L (136-145); TSH 32.44 uIU/mL (0.36-3.74); Total Protein 6.9 g/dL (6.4-8.2)
[2024-10-03 16:21] LABS: Hemoglobin A1C 6.7 % (<5.7)
[2024-10-03 17:07] LABS: Calculated LDL 40 mg/dL (<100); Cholesterol 128 mg/dL (<200); HDL Cholesterol 47 mg/dL (>or=50); Triglyceride 208 mg/dL (<150)
== END 2024-10-03 18:24 | disposition home or self-care (01) ==
LOC: LBN 18:23
PROVIDERS: PCP Family Medicine; Visit Provider Nurse Practitioner Adult Health
DX: E11.65 Type 2 diabetes mellitus with hyperglycemia (principal)
CPT/HCPCS: 80053; 80061; 83036; 83880; 84443; 85025

== ENCOUNTER 2024-10-09 16:46 | Outpatient (REF) | payer MEDICARE, MEDICAID, SELFPAY ==
[2024-10-09 13:51] LABS: COVID-19 PCR Negative (Negative); RSV PCR Negative (Negative)
[2024-10-09 21:45] LABS: Legionella Ag Detection Urine Negative (Negative)
== END 2024-10-09 16:47 | disposition home or self-care (01) ==
LOC: LBN 16:46
PROVIDERS: PCP Family Medicine; Visit Provider Nurse Practitioner Adult Health
DX: J06.9 Acute upper respiratory infection, unspecified (principal)
CPT/HCPCS: 87449; 87637; 87081

== ENCOUNTER 2024-10-10 05:21 | Inpatient (IN) | payer MEDICARE, MEDICAID, SELFPAY ==
[2024-10-10] VITALS (26 sets, daily range): BP systolic 115–155; BP diastolic 58–97; PULSE 75–97; RESP 16–40; TEMP 36–37.3; O2SAT 90–99
--- NOTE | 2024-10-10 | DI.CT_ITS ---
Exam(s) CT CHEST PE CTA EXAM: CT CHEST PE CTA CLINICAL HISTORY: hypoxia, chest pain, unclear CXR, tachycardia. TECHNIQUE: Imaging Protocol: Axial CT angiography was performed with multi- slice acquisition and multi-planar reconstructions as well as axial, coronal and sagittal MIP reconstructions. Computer aided detection (CAD) was utilized. CONTRAST MATERIAL: Intravenous: Omnipaque 350 Contrast volume:100 ml COMPARISON: CT CT CHEST WO from 11/12/2022 CR XR CHEST 2V PA LATERAL from 03/03/2023 CR,XR XR PORTABLE CHEST AP from 05/11/2023 CR,XR XR PORTABLE CHEST AP from 10/10/2024 FINDINGS: Pulmonary Arteries: No evidence of filling defect to suggest pulmonary emboli. Pulmonary arteries are prominent, with main pulmonary trunk measuring 3.1 cm. Right pulmonary trunk measures 2.7 cm. Mediastinum and Diane: No dominant adenopathy or fluid collection. Pulmonary parenchyma: Suboptimal evaluation due to expiratory changes and respiratory motion. Dependent changes versus ground-glass opacities. No consolidation or dominant measurable mass. Pleura: No effusion or pneumothorax. Heart: The heart is not dilated. No coronary artery calcifications are seen. Aorta: Ascending aorta measures 3.9 cm. No dissection. Upper abdomen: No acute findings. Bones: Old rib fractures. Old lower thoracic spine fractures. Scoliosis. Prominent kyphosis. Tubes, Catheters, and Lines: None Soft tissues: Unremarkable. IMPRESSION: No evidence of pulmonary embolism. Limited evaluation of the lungs due to expiratory changes and motion. No areas of consolidation. RADIATION DOSE DELIVERED: Total DLP DATA REPOSITORY: All CT scans at this facility are submitted to the National Radiology Data Registry (NRDR) Dose Index Registry (DIR) with the [employer] [place] [employer] (A[employer]). RADIATION OPTIMIZATION: All CT scans at this facility use at least one of these dose optimization techniques: automated exposure control; mA and/or kV adjustment per patient size (includes targeted exams where dose is matched to clinical indication); or iterative reconstruction.
--- NOTE | 2024-10-10 05:00 | RT.EKG_ITS ---
APPROVED REPORT Exam: Resting ECG Reason for Exam: SOB Patient Location: E HR:94 bpm ECG Measurements Heart Rate 94 AXIS ND 166 P 37 QRSd 97 QRS 6 QT 373 T -11 QTc 468 Conclusion Sinus rhythm...normal P axis, V-rate 60- 99 I have reviewed and interpreted ECG and agree with software generated interpretation.
--- NOTE | 2024-10-10 05:15 | DI.RAD_ITS ---
Exam(s) XR PORTABLE CHEST AP EXAM: XR PORTABLE CHEST AP CLINICAL HISTORY: SOB, asthma, hypoxic. TECHNIQUE: 2D digital imaging was performed. COMPARISON: CR,XR XR PORTABLE CHEST AP from 05/11/2023 FINDINGS: Single AP portable view. Multiple healed right-sided rib fractures are again noted. Heart size is upper normal. The mediastinum is not widened. Increased markings in both lung sumner exhibit minimal if any significant change from 10/02/2023, when allowing for differences in image acquisition technique. Scarring in the right upper lobe and lingular segment of the left lung again noted. No obvious new confluent infiltrates and no pleural effusions. IMPRESSION: Chronic lung findings as above, unchanged radiographically from 05/11/2023. DATA REPOSITORY: RADIATION DOSE DELIVERED:
[2024-10-10 05:31] LABS: BE (Venous) 4 mmol/L (-2-3); HCO3 (Venous) 29 mmol/L (23-28); O2 Sat (Venous) 81 %; TCO2 (Venous) 25 mmol/L (24-29); pCO2 (Venous) 44 mmHg (41-51); pO2 (Venous) 44 mmHg
[2024-10-10 05:35] LABS: Abs Immature Grans 0.02 10^3/uL (0.0-0.06); HCT 41.4 % (36.0-46.0); HGB 13.8 g/dL (11.2-15.7); Immature Grans % 0.2 %; MCH 31.9 pg (27.0-33.0); MCHC 33.3 % (32.0-36.0); MCV 96 fL (80-95); MPV 10.4 fL (8.0-11.0); Platelet Count 185 10^3/uL (130-400); RBC 4.33 10^6/uL (3.93-5.22); RDW 12.1 % (11.7-14.6); RDW-SD 42.5 fL; WBC 13.14 10^3/uL (4.4-10.8)
[2024-10-10] MEDS: methylPREDNISolone SUCC 125 MG VIAL IVP (05:42)
[2024-10-10] MEDS: MAGNESIUM SULFATE 2 GM/50 ML BAG IV_INF (05:42)
[2024-10-10] MEDS: Albuterol/Ipratropium 3 ML UPD VIAL UPD (05:42)
[2024-10-10 05:57] LABS: NT-proBNP 188 pg/mL (<300); Troponin I 4 ng/L (<or=51)
[2024-10-10 06:02] LABS: ALT 16 U/L (14-59); AST 13 U/L (15-37); Albumin 3.6 g/dL (3.4-5.0); Alkaline Phosphatase 123 U/L (46-116); Anion Gap 8.8 mmol/L (3-11); BUN 14 mg/dL (7-18); Bilirubin, Total 0.8 mg/dL (0.2-1.0); CO2 29.2 mmol/L (21.0-32.0); Calcium 9.0 mg/dL (8.5-10.1); Chloride 103 mmol/L (98-107); Estimated GFR 89.02 (mL/min/1.73m2); Glucose 176 mg/dL (74-106); Potassium 3.7 mmol/L (3.5-5.1); Sodium 141 mmol/L (136-145); Total Protein 7.6 g/dL (6.4-8.2)
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
[2024-10-10 06:13] LABS: COVID-19 PCR Negative (Negative); RSV PCR Negative (Negative)
[2024-10-10] MEDS: levoFLOXacin 750 MG/150 ML BAG 100 MG IVPB (06:35)
[2024-10-10] MEDS: AZTREONAM 2,000 MG in Normal Saline 100 ML 200 MG IVPB (06:35)
--- NOTE | 2024-10-10 08:09 | DI.VRAD_ITS ---
PROCEDURE INFORMATION: Exam: XR Chest Exam date and time: 10/10/2024 5:37 AM Age: 79 years old Clinical indication: Shortness of breath; SOB, asthma, hypoxic TECHNIQUE: Imaging protocol: Radiologic exam of the chest. Views: 1 view. COMPARISON: CR XR PORTABLE CHEST AP 05/11/2023 4:21 AM FINDINGS: Lungs: Reduced lung volumes bilaterally. Interval resolution of previously noted left lower lobe pneumonia. Diffuse interstitial prominence, unchanged. Pleural spaces: Unremarkable. No pleural effusion. No pneumothorax. Heart/Mediastinum: Unremarkable. No cardiomegaly. Bones/joints: Unremarkable. IMPRESSION: Chronic interstitial lung findings. Dictated and Authenticated by: Fam Whitaker MD. Orderin Deniz Small MD
[2024-10-10] MEDS: Albuterol/Ipratropium 3 ML UPD VIAL IH ×2 (08:11→17:31)
[2024-10-10] MEDS: VANCOMYCIN/WATER (PEG) 1.75 GM/350 ML BAG IVPB (08:24)
--- NOTE | 2024-10-10 09:13 | W.PC.ACHO ---
Registration Status: REG ER Primary Language: Preferred Language: Thai ED Information & Data Chief Complaint SOB 10/10/24 06:11 Triage Note PT has HX of asthma. PT has 10/10/24 05:09 had some wheezing over the past couple of days. PT was mid 80s% SPO2%. Medical / Surgical History (Last Reviewed 05/11/23 @ 04:08 by Geovanny Guaman DO) Pulmonary infiltrate Failure to thrive syndrome, adult Abnormal CT of the head Altered mental status Influenza A Altered mental status Pulmonary hypertension Asthma exacerbation Hypoxemia Asthma Pneumonia Palliative care encounter Nausea and vomiting Acute bronchitis Hypoxia Acute respiratory distress Respiratory failure, unspecified with hypoxia Pneumonia Hearing loss Obesity Neurogenic bladder Adenomatous polyp of colon Obstructive sleep apnea Diastolic heart failure Diabetes mellitus type 2, controlled Dysuria Cognitive developmental delay Atrial flutter Bipolar disorder Schizophrenia Developmental delay, borderline Depression with anxiety Chronic low back pain Osteoarthritis Hypothyroidism Arias's esophagus GERD (gastroesophageal reflux disease) Type 2 diabetes mellitus Hyperlipidemia Hypertension Tardive dyskinesia (01/26/17) 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) (Last Reviewed 05/11/23 @ 04:08 by Geovanny Guaman DO) History of hernia repair History of cataract surgery History of hysterectomy with bilateral oophorectomy S/P cholecystectomy H/O tubal ligation Most Recent Vital Signs Temperature 37.3 C 10/10/24 05:09 Temperature Source Oral 10/10/24 05:09 Pulse 89 10/10/24 06:41 Pulse 89 10/10/24 06:41 Respiratory Rate 29 H 10/10/24 06:41 Respiratory Effort Short of Breath 10/10/24 05:14 Respiratory Depth Normal 10/10/24 05:14 Respiratory Pattern Tachypnea 10/10/24 05:14 Blood Pressure 155/69 H 10/10/24 06:40 Blood Pressure Mean 98 10/10/24 06:40 Pulse Oximetry 90 L 10/10/24 06:41 Oxygen Delivery Method Room Air 10/10/24 05:14 Oxygen Flow Rate 0 10/10/24 05:09 Pain Level 0 10/10/24 05:14 Allergies codeine Allergy (Severe, Unverified 10/10/24 05:20) Unknown Penicillins Allergy (Severe, Unverified 10/10/24 05:20) Unknown bupropion Allergy (Intermediate, Unverified 10/10/24 05:20) Unknown tetrabenazine Allergy (Intermediate, Unverified 10/10/24 05:20) Skin Rash large red welts with central clearing on arms, back, and scalp. Itchy. lisinopril Allergy (Mild, Unverified 10/10/24 05:20) Unknown oxybutynin chloride (From Ditropan) Allergy (Unverified 10/10/24 05:20) Unknown lactose Adverse Reaction (Verified 10/10/24 05:20) Other (See Comment) Active Medications Generic Name Dose Route Start Last Admin Trade Name Freq PRN Reason Stop Dose Admin Albuterol/Ipratropium 3 ml 10/10/24 08:00 10/10/24 08:11 Albuterol/Ipratropium 3 Ml Upd Vial IH 3 ml Q6H SCOTT Administration Aztreonam 2,000 mg/ Sodium 100 mls @ 200 mls/hr 10/10/24 06:30 10/10/24 07:05 Chloride IVPB Infused NOW SCOTT Infusion Vancomycin/PEG/NADA/Lysine/Water 1.75 gm in 350 mls @ 233.333 mls/hr 10/10/24 08:15 10/10/24 08:24 Vancocin Injection IVPB 10/10/24 09:44 233.333 mls/hr STAT STA Administration IV IV Catheter Type [Right Diffusics Forearm] IV Catheter Gauge [Right 20 Forearm] Diet Orders Category Date Time Status Diabetes Consistent CHO/Heart Healthy [DIET] Nutrition 10/10/24 Lunch Active Diagnostics 10/10/24 10/10/24 Range/Units 08:12 05:26 WBC 13.14 H (4.4-10.8) 10^3/uL RBC 4.33 (3.93-5.22) 10^6/uL Hgb 13.8 (11.2-15.7) g/dL Hct 41.4 (36.0-46.0) % MCV 96 H (80-95) fL MCH 31.9 (27.0-33.0) pg MCHC 33.3 (32.0-36.0) % RDW 12.1 (11.7-14.6) % Plt Count 185 (130-400) 10^3/uL MPV 10.4 (8.0-11.0) fL Immature Gran % 0.2 % Neutrophils % 72.2 % Lymphocytes % 17.9 % Monocytes % 7.4 % Eosinophils % 1.8 % Basophils % 0.5 % Nucleated RBC % 0.0 (0.0-0.3) % Absolute Neutrophils 9.49 H (1.2-6.7) 10^3/uL Absolute Lymphocytes 2.35 (1.2-3.4) 10^3/uL Absolute Monocytes 0.97 H (0.1-0.8) 10^3/uL Absolute Eosinophils 0.24 (0.0-0.7) 10^3/uL Absolute Basophils 0.07 (0.0-0.2) 10^3/uL VBG pH 7.42 H (7.31-7.41) VBG pCO2 44 (41-51) mmHg VBG pO2 44 mmHg VBG HCO3 29 H (23-28) mmol/L VBG Total CO2 25 (24-29) mmol/L VBG O2 Saturation 81 % VBG Base Excess 4 H (-2-3) mmol/L Sodium 141 (136-145) mmol/L Potassium 3.7 (3.5-5.1) mmol/L Chloride 103 (98-107) mmol/L Carbon Dioxide 29.2 (21.0-32.0) mmol/L Anion Gap 8.8 (3-11) mmol/L BUN 14 (7-18) mg/dL Creatinine 0.7 (0.55-1.02) mg/dL Est GFR (CKD-EPI 2020) 89.02 (mL/min/1.73m2) Glucose 176 H (74-106) mg/dL Calcium 9.0 (8.5-10.1) mg/dL Total Bilirubin 0.8 (0.2-1.0) mg/dL AST 13 L (15-37) U/L ALT 16 (14-59) U/L Alkaline Phosphatase 123 H (46-116) U/L Troponin I 4 (<or=51) ng/L NT-Pro-B Natriuret Pep 188 (<300) pg/mL Total Protein 7.6 (6.4-8.2) g/dL Albumin 3.6 (3.4-5.0) g/dL COVID-19 Source Not Applicable SARS-CoV-2 (PCR) Negative (Negative) Influenza Type A (PCR) Negative (Negative) Influenza Type B (PCR) Negative (Negative) RSV (PCR) Negative (Negative) MRSA (TEM-PCR) Pending Intake and Output - 24 Hour Total 10/10/24 05:04 thru 10/10/24 08:05 Intake Total 300 Balance 300 Weight 83.8 kg Intake: IV 300 Falls Risk Assessment History of Falls No History 10/10/24 05:14 Contributing Factors Confusion 10/10/24 05:14 Ambulatory Aids Uses ambulatory device 10/10/24 05:14 Tubes/Lines W/no contributing factors 10/10/24 05:14 Gait Evaluation W/no contributing factors 10/10/24 05:14 Cognition Cognitive impairment 10/10/24 05:14 Fall Total Score 53 10/10/24 05:14 Level of Risk High Risk 10/10/24 05:14 v v v v v v v v v Sending and/or Receiving Nurses: Please use comment section below to note any information pertinent to the patient hand-off not included above. Information / Comments: pt arrives to unit from ED and will got to rm 229 Report received from: PEPITO Guillory
[2024-10-10 10:28] LABS: MRSA PCR Negative (Negative)
[2024-10-10] MEDS: Budesonide/Formoterol 160/4.5 6 GM 60 PUFF INH IH ×2 (10:29→19:50)
--- NOTE | 2024-10-10 12:45 | RT.EKG_ITS ---
APPROVED REPORT Exam: Resting ECG Reason for Exam: Mid sternal chest pain Patient Location: I HR:113 bpm ECG Measurements Heart Rate 113 AXIS WV 156 P 31 QRSd 99 QRS -28 QT 350 T -25 QTc 480 Conclusion Sinus tachycardia...rate> 99 Abnormal R-wave progression, late transition...QRS area<0 in V5/V6 Inferior infarct, old...Q >35mS, II III aVF
[2024-10-10] MEDS: Calcium 600mg/Vit D 200U TAB 1 TAB PO (13:01)
[2024-10-10] MEDS: Furosemide 20 MG TAB PO (13:02)
[2024-10-10] MEDS: Acetaminophen 500 MG TAB 1000 MG PO (13:02)
[2024-10-10] MEDS: Metoprolol 25 MG TAB PO ×3 (13:02→20:18)
[2024-10-10] MEDS: Aspirin 81 MG CHEW PO (13:03)
[2024-10-10] MEDS: Escitalopram 20 MG TAB 10 MG PO (13:03)
[2024-10-10] MEDS: Insulin Aspart 300 UNITS/3 ML PEN SC ×2 (13:05→17:08)
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
[2024-10-10] MEDS: Normal Saline - Diluent 50 ML VIAL IJ (18:22)
[2024-10-10] MEDS: Omnipaque 350 MG/ML 100 ML BTL IJ (18:23)
[2024-10-10] MEDS: Prazosin 2 MG CAP PO (20:18)
[2024-10-10] MEDS: Simvastatin 20 MG TAB PO (20:18)
[2024-10-10] MEDS: clonazePAM 1 MG TAB 0.5 MG PO (20:18)
[2024-10-10] MEDS: Normal Saline Flush 10 ML SYR IVP (20:19)
[2024-10-10] MEDS: Lansoprazole 30 MG CAPCR PO (20:19)
[2024-10-10] MEDS: Insulin Glargine 300 UNITS/3 ML PEN 10 UNITS SC (20:30)
[2024-10-11] VITALS (10 sets, daily range): BP systolic 112–123; BP diastolic 60–64; PULSE 60–75; RESP 16–20; TEMP 36–36.7; O2SAT 92–97
[2024-10-11] MEDS: Albuterol/Ipratropium 3 ML UPD VIAL IH ×3 (00:21→13:09)
[2024-10-11] MEDS: Levothyroxine 112 MCG TAB 100 MCG PO (05:53)
[2024-10-11 06:43] LABS: HCT 39.4 % (36.0-46.0); HGB 13.3 g/dL (11.2-15.7); MCH 32.4 pg (27.0-33.0); MCHC 33.8 % (32.0-36.0); MCV 96 fL (80-95); MPV 10.4 fL (8.0-11.0); Platelet Count 197 10^3/uL (130-400); RBC 4.11 10^6/uL (3.93-5.22); RDW 11.9 % (11.7-14.6); RDW-SD 41.6 fL; WBC 13.19 10^3/uL (4.4-10.8)
[2024-10-11 06:59] LABS: Anion Gap 9.3 mmol/L (3-11); BUN 16 mg/dL (7-18); CO2 27.7 mmol/L (21.0-32.0); Calcium 8.8 mg/dL (8.5-10.1); Chloride 101 mmol/L (98-107); Estimated GFR 65.84 (mL/min/1.73m2); Glucose 243 mg/dL (74-106); Potassium 4.5 mmol/L (3.5-5.1); Sodium 138 mmol/L (136-145)
[2024-10-11] MEDS: Calcium 600mg/Vit D 200U TAB 1 TAB PO (08:16)
[2024-10-11] MEDS: predniSONE 20 MG TAB 40 MG PO (08:16)
[2024-10-11] MEDS: Furosemide 20 MG TAB PO (08:17)
[2024-10-11] MEDS: Aspirin 81 MG CHEW PO (08:17)
[2024-10-11] MEDS: Metoprolol 25 MG TAB PO ×2 (08:17→14:56)
[2024-10-11] MEDS: levoFLOXacin 500 MG, levoFLOXacin 250 MG 750 MG PO (08:17)
[2024-10-11] MEDS: Lansoprazole 30 MG CAPCR PO (08:18)
[2024-10-11] MEDS: Insulin Glargine 300 UNITS/3 ML PEN 10 UNITS SC (08:30)
[2024-10-11] MEDS: Insulin Aspart 300 UNITS/3 ML PEN SC ×2 (08:32→12:16)
[2024-10-11] MEDS: Albuterol 2.5 MG/3 ML INH SOLN VIAL UPD (08:59)
[2024-10-11] MEDS: Budesonide/Formoterol 160/4.5 6 GM 60 PUFF INH IH (09:03)
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
[2024-10-11] MEDS: Enoxaparin 40 MG/0.4 ML SYR SC (12:18)
[2024-10-11] MEDS: Escitalopram 20 MG TAB 10 MG PO (12:30)
--- NOTE | 2024-10-11 15:05 | PT.INNT ---
PT Notes Visit Reasons: Pneumonia, Asthma Exacerbation, Hypoxia Patient was on her way out of the room to go back to SNF and Nurse Adam was provided with help in bed mobility as well as transferring patient from bed to wheelchair to ensure safety. No charge was made for this session. Patient was seen from 15:05-15:19).
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
--- NOTE | 2024-10-11 15:33 | CMDISCH_ITS ---
Date of service: 10/11/24 Time of Service: 15:33 LACE Index Scoring Tool Questions: Length of Stay (in days): 1 Was the patient admitted via the E.D.?: Yes Comorbidities: Cerebrovascular Disease and Diabetes w/o Complication E.D. Visits: 2 Answers: Total Score: 8 Risk of Readmission: Low Risk Care Management Discharge Plan Reason for Hospitalization: Pneumonia Discharge Plan: Philomena is discharged back to [facility]. Transportation was coordinated through [facility], then [facility] sent [employer] because of limitations in their availability. Philomena will follow up with facility/community providers and her discharge plan of care as directed. The hospitalist updated the patients' Guardian before discharge. Patient/Family Education Needs: Review discharge instructions and plan to follow up after discharge. Discuss ask me three. Services Needed at Discharge: Retirement Facility (Return to [facility]) and Transportation ([facility] private vehicle coordinated by CM. ) SDOH Health Related Social Needs: Health related social needs risk of homeless house/eco n circumstance daily activities lonely/isolated education Health related social needs details n/a Health related social needs details: n/a
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
--- NOTE | 2024-10-11 17:43 | CHAPLAIN ---
I had a brief visit with Philomena this afternoon. She said she was going to nap so I didn't stay long. She was pleasant and responded to questions with short answers. She was discharged back to [facility].
== END 2024-10-11 15:29 | disposition skilled nursing facility (03) | DRG 202 ==
LOC: ER 07:41 → MS 09:23
PROVIDERS: Emergency Medicine; Admitting Provider Family Medicine; Emergency Provider Student in an Organized Health Care Education/Training Program; PCP Family Medicine; Responsible Provider Family Medicine; Visit Provider Family Medicine
DX: J45.901 Unspecified asthma with (acute) exacerbation (principal); J96.01 Acute respiratory failure with hypoxia; I48.92 Unspecified atrial flutter; G21.11 Neuroleptic induced parkinsonism; I50.30 Unspecified diastolic (congestive) heart failure; Z59.811 Housing instability, housed, with risk of homelessness; R07.89 Other chest pain; F20.9 Schizophrenia, unspecified; R13.10 Dysphagia, unspecified; R53.1 Weakness; E11.65 Type 2 diabetes mellitus with hyperglycemia; K44.9 Diaphragmatic hernia without obstruction or gangrene; I87.2 Venous insufficiency (chronic) (peripheral); G43.009 Migraine without aura, not intractable, without status migrainosus; H90.3 Sensorineural hearing loss, bilateral; M81.0 Age-related osteoporosis without current pathological fracture; R26.2 Difficulty in walking, not elsewhere classified; I27.20 Pulmonary hypertension, unspecified; N31.9 Neuromuscular dysfunction of bladder, unspecified; G47.33 Obstructive sleep apnea (adult) (pediatric); F31.9 Bipolar disorder, unspecified; F41.8 Other specified anxiety disorders; G89.29 Other chronic pain; M54.50 Low back pain, unspecified; E03.9 Hypothyroidism, unspecified; E78.5 Hyperlipidemia, unspecified; I11.0 Hypertensive heart disease with heart failure; G24.01 Drug induced subacute dyskinesia; Z55.0 Illiteracy and low-level literacy; Z79.4 Long term (current) use of insulin; Z59.89 Other problems related to housing and economic circumstances; Z73.9 Problem related to life management difficulty, unspecified; Z60.8 Other problems related to social environment; Z55.6 Problems related to health literacy
CPT/HCPCS: 00123; 36415; 71275; 80048; 80053; 82805; 85027; 87637; 87641; 93005; 94640; 96365; 96367; 96368; 96375; 99291; J1650; 71045; 83880; 84484; 85025; 93010; 94664; 94760; 99222; 99239; J0457; J1815; J1956; J2919; J3373; J3475; J3490; J7512; J7613; J7620

== ENCOUNTER 2024-10-21 08:28 | Outpatient (REF) | payer MEDICARE, MEDICAID, SELFPAY ==
[2024-10-21 08:53] LABS: Glucose 100 mg/dL (Negative)
[2024-10-21 09:07] LABS: PROTEIN 9.8 mg/dL; Prot/Crea Ur Ratio 0.23
== END 2024-10-21 08:29 | disposition home or self-care (01) ==
LOC: LBN 08:28
PROVIDERS: PCP Family Medicine; Visit Provider Family Medicine
DX: N39.0 Urinary tract infection, site not specified (principal); J96.01 Acute respiratory failure with hypoxia
CPT/HCPCS: 81003; 82565; 84156; 87086

== ENCOUNTER 2024-10-31 16:41 | Outpatient (REF) | payer MEDICARE, MEDICAID, SELFPAY ==
[2024-10-31 13:53] LABS: Anion Gap 6.8 mmol/L (3-11); BUN 9 mg/dL (7-18); CO2 32.2 mmol/L (21.0-32.0); Calcium 9.0 mg/dL (8.5-10.1); Chloride 103 mmol/L (98-107); Estimated GFR 92.39 (mL/min/1.73m2); Glucose 184 mg/dL (74-106); NT-proBNP 199 pg/mL (<300); Potassium 4.3 mmol/L (3.5-5.1); Sodium 142 mmol/L (136-145); TSH (W/Ref FT4) 43.01 uIU/mL (0.36-3.74)
== END 2024-10-31 16:42 | disposition home or self-care (01) ==
LOC: LBN 16:41
PROVIDERS: PCP Family Medicine; Visit Provider Nurse Practitioner Gerontology
DX: E11.65 Type 2 diabetes mellitus with hyperglycemia (principal); N18.2 Chronic kidney disease, stage 2 (mild)
CPT/HCPCS: 80048; 83880; 84439; 84443

== ENCOUNTER 2024-12-11 16:18 | Outpatient (REF) | payer MEDICARE, MEDICAID, SELFPAY ==
[2024-12-11 15:56] LABS: TSH (W/Ref FT4) 24.76 uIU/mL (0.36-3.74)
== END 2024-12-11 16:19 | disposition home or self-care (01) ==
LOC: LBN 16:18
PROVIDERS: PCP Family Medicine; Visit Provider Nurse Practitioner Adult Health
DX: E03.9 Hypothyroidism, unspecified (principal)
CPT/HCPCS: 84439; 84443

== ENCOUNTER 2025-01-29 18:44 | Outpatient (REF) | payer MEDICARE, MEDICAID, SELFPAY ==
[2025-01-29 17:04] LABS: COVID-19 PCR Negative (Negative); RSV PCR Negative (Negative)
== END 2025-01-29 18:45 | disposition home or self-care (01) ==
LOC: LBN 18:44
PROVIDERS: PCP Family Medicine; Visit Provider Nurse Practitioner Adult Health
DX: J06.9 Acute upper respiratory infection, unspecified (principal)
CPT/HCPCS: 87637

== ENCOUNTER 2025-02-06 08:12 | Emergency (ER) | payer MEDICARE, MEDICAID, SELFPAY ==
--- NOTE | 2025-02-06 08:00 | RT.EKG_ITS ---
APPROVED REPORT Exam: Resting ECG Reason for Exam: chest pain Patient Location: E HR:61 bpm ECG Measurements Heart Rate 61 AXIS MO 179 P 44 QRSd 101 QRS 33 QT 432 T 4 QTc 436 Conclusion Sinus rhythm...normal P axis, V-rate 60- 99 No STEMI
--- NOTE | 2025-02-06 08:00 | DI.RAD_ITS ---
Exam(s) XR PORTABLE CHEST AP EXAM: XR PORTABLE CHEST AP CLINICAL HISTORY: chest pain TECHNIQUE: 2D digital imaging was performed of the chest. One image was obtained. An AP view was obtained. COMPARISON: CR,XR XR PORTABLE CHEST AP from 05/11/2023 CR XR RIBS ONLY LT from 12/28/2023 CR,XR XR PORTABLE CHEST AP from 10/10/2024 FINDINGS: There are low lung volumes. MEDIASTINUM: Normal. HEART: Normal. PULMONARY VASCULATURE: Normal. LUNGS: There is again seen bilateral parenchymal scarring, particularly in the right mid lung in the left lung base. There is slight increased lung markings in the left base. This may represent a superimposed atelectasis or pneumonia. Please correlate clinically. PLEURAL SPACE: No pleural effusion or pneumothorax. BONE:Within normal limits for the patient's age. There are old healed rib fractures bilaterally. OTHER FINDINGS:Normal. IMPRESSION: 1. Slight increased densities in the left lung base which may represent a superimposed pneumonia or atelectasis. Please correlate clinically. 2. Stable bilateral parenchymal scarring. DATA REPOSITORY: RADIATION DOSE DELIVERED:
[2025-02-06 08:15] VITALS: BP 141/53; PULSE 63; RESP 18; TEMP 36.7; O2SAT 93
[2025-02-06 08:35] VITALS: PULSE 55; RESP 18; O2SAT 98
[2025-02-06] MEDS: Albuterol/Ipratropium 3 ML UPD VIAL UPD (08:35)
[2025-02-06 08:50] LABS: Abs Immature Grans 0.01 10^3/uL (0.0-0.06); HCT 40.4 % (36.0-46.0); HGB 13.5 g/dL (11.2-15.7); Immature Grans % 0.1 %; MCH 32.1 pg (27.0-33.0); MCHC 33.4 % (32.0-36.0); MCV 96 fL (80-95); MPV 10.4 fL (8.0-11.0); Platelet Count 196 10^3/uL (130-400); RBC 4.21 10^6/uL (3.93-5.22); RDW 11.9 % (11.7-14.6); RDW-SD 41.2 fL; WBC 6.94 10^3/uL (4.4-10.8)
[2025-02-06 08:54] LABS: BE (Venous) 4 mmol/L (-2-3); HCO3 (Venous) 31 mmol/L (23-28); O2 Sat (Venous) 52 %; TCO2 (Venous) 33 mmol/L (24-29); pO2 (Venous) 31 mmHg
[2025-02-06 08:56] LABS: pCO2 (Venous) 62 mmHg (41-51)
[2025-02-06 09:02] LABS: INR 1.1 (0.9-1.1); PTT Activated 23.9 sec (20.6-30.2); Prothrombin Time 10.6 sec (9.1-11.1)
[2025-02-06 09:16] LABS: Lipase 29 U/L (<53); Magnesium 2.1 mg/dL (1.6-2.6)
[2025-02-06 09:18] LABS: ALT 9 U/L (10-49); AST 14 U/L (<34); Albumin 3.8 g/dL (3.4-5.0); Alkaline Phosphatase 98 U/L (46-116); Anion Gap 7.4 mmol/L (3-11); BUN 9 mg/dL (9-23); Bilirubin, Total 0.40 mg/dL (0.2-1.2); CO2 31.6 mmol/L (20.0-31.0); Calcium 8.6 mg/dL (8.3-10.6); Chloride 105 mmol/L (98-107); Glucose 140 mg/dL (74-106); Potassium 4.2 mmol/L (3.5-5.1); Sodium 144 mmol/L (136-145); Total Protein 6.6 g/dL (5.7-8.2)
[2025-02-06 09:19] LABS: Troponin I < 3 ng/L (<35)
[2025-02-06] MEDS: AZITHROMYCIN 500 MG in Normal Saline 250 ML 250 MG IVPB (10:11)
[2025-02-06] MEDS: methylPREDNISolone SUCC 125 MG VIAL IVP (10:13)
[2025-02-06 11:56] LABS: Troponin I < 3 ng/L (<35)
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
--- NOTE | 2025-02-08 14:41 | NUR.NOTE ---
Access chart to reconcile EKG orders with EKG's in [facility]. Duplicate order cancelled. Nursing Note:
== END 2025-02-06 13:19 | disposition home or self-care (01) ==
PROVIDERS: Emergency Provider General Practice; PCP Family Medicine
DX: R07.89 Other chest pain (principal); R06.2 Wheezing
CPT/HCPCS: 99284 ×2; 94640; 96375; 80053; 82805; 83690; 93005; 96365; 71045; 83605; 83735; 83880; 84484; 85025; 85610; 85730; 93010; J0456; J2919; J7620

== ENCOUNTER 2025-02-14 18:01 | Outpatient (REF) | payer MEDICARE, MEDICAID, SELFPAY ==
[2025-02-14 18:02] LABS: Glucose Negative (Negative)
== END 2025-02-14 18:02 | disposition home or self-care (01) ==
LOC: LBN 18:01
PROVIDERS: PCP Family Medicine; Visit Provider Nurse Practitioner Adult Health
DX: M62.81 Muscle weakness (generalized) (principal)
CPT/HCPCS: 81003; 87086